=== PATIENT | female | born 1945 | race Caucasian/White ===

== ENCOUNTER 2019-11-25 08:54 | Outpatient (CLI) | payer MEDICARE, MEDICAID, SELFPAY ==
--- NOTE | 2019-11-25 09:04 | XR_ITS ---
WS: [id number] XR KUB [id number] REASON FOR EXAM: retained ureteral stent FINDINGS: Renal calculus is noted in the right kidney with a stent seen from the kidney to the bladde r. There is nonspecific gas and fecal stasis. There is degenerate changes of the left hip joint. A prosthesis total hip replacement on the right side. XR/XR KUB 31191 IMPRESSION: Right renal calculus with a stent in the right kidney to the bladder Degenerated changes of the left hip Total replacement of the right hip.
== END 2019-11-25 08:55 | disposition home or self-care (01) ==
LOC: RAD 09:02
PROVIDERS: Family Provider Family Medicine; PCP Family Medicine; Visit Provider Urology
DX: N20.0 Calculus of kidney (principal); Z96.0 Presence of urogenital implants; Z96.641 Presence of right artificial hip joint; R32 Unspecified urinary incontinence
CPT/HCPCS: 74018; 80053; 81001; 87077; 87086; 87186

== ENCOUNTER 2019-12-27 11:21 | Outpatient (CLI) | payer MEDICARE, MEDICAID, SELFPAY ==
--- NOTE | 2019-12-27 11:44 | XR_ITS ---
WS: [id number] ABDOMEN 1 VIEW(S) HISTORY: RETAINED URETERAL STENT COMPARISON: 11/25/2019 RIGHT ureteral stent remains in good position. 8mm calcification over the mid RIGHT kidney. No calcif ication along the course of the stent. No calcifications LEFT kidney identified. Numerous surgical clips throughout the abdomen and pelvis. RIGHT hip arthroplasty. LEFT hip avascular necrosis. XR/XR KUB 15742 IMPRESSION: 1. RIGHT ureteral stent in good position. No associated calcification. 2. Unchanged position of RIGHT renal calcification.
== END 2019-12-27 11:22 | disposition home or self-care (01) ==
LOC: RADWPI 11:27
PROVIDERS: Family Provider Family Medicine; PCP Family Medicine; Visit Provider Urology
DX: Z96.0 Presence of urogenital implants (principal)
CPT/HCPCS: 74018; 80053; 81001; 87077; 87086; 87186

== ENCOUNTER 2020-01-02 06:31 | Day surgery (SDC) | payer MEDICARE, MEDICAID, SELFPAY ==
[2020-01-01 15:45] VITALS: BMI 24.5
--- NOTE | 2020-01-02 | SCC_ITS ---
Procedure Done: Cystoscopy, exchange right ureteral stent 14.4 seconds of fluoroscopic guidance, for a cumulative dose of 1.81 mGy, was provided to Dr. Mayes by the radiology department. C-arm images of the abdomen were saved for the patient's permanent record. [facility]
--- NOTE | 2020-01-02 06:35 | SC_ITS ---
WS: [id number] INTRAOPERATIVE TECHNIQUE: 2 Spot fluoroscopic images for intraoperative purposes. FLUOROSCOPY TIME: 14.4 seconds CLINICAL INFORMATION: Change to right ureteral stent COMPARISON: None. FINDINGS: Partially visualized right double-J ureteral stent. SC/C-arm FL for Urology IMPRESSION: Images obtained for intraoperative purposes.
[2020-01-02 06:43] VITALS: BP 129/79; PULSE 90; RESP 18; TEMP 36; O2SAT 98
[2020-01-02] MEDS: sodium chloride 0.9% 1,000 ML 30 ML IV (06:55)
--- NOTE | 2020-01-02 07:15 | ANES.PREANE2 ---
Pre-Anesthetic Assessment Pre-Anesthetic Assessment: Height/Weight: Height 1.55 m Weight 58.967 kg Temp Pulse Resp BP Pulse Ox 96.8 F L 90 18 129/79 98 01/02/20 06:43 01/02/20 06:43 01/02/20 06:43 01/02/20 06:43 01/02/20 06:43 Preop Diagnosis: Chronic right ureteral obstruction Proposed Procedure: Operation Date: 01/02/20 08:00 Proposed Procedures p Cystoscopy 09066 Z94.0 N13.5(Not Applicable) - Nnamdi Mayes MD s Ureteral Stent Exchange(Right) - Nnamdi Mayes MD Last intake: Intake Last Liquid Date 01/01/20 Last Liquid Time 23:00 Last Solid Date 01/01/20 Last Solid Time 18:00 Social: Social History: Tobacco (every day) and No alcohol Exam: Pre-Anes Outpt Exam: alert, oriented x 3, clear to auscultation bilaterally and regular rate & rhythm Airway: Submandibular: WNL Cervical ROM: WNL MP: 2 Dentition: False (upper) and Other (lower teeth very poor) History/ROS: No significant history except as noted Pulmonary: Pulmonary: None reported CV/HEM: CV/HEM: HTN and PVD : Comments: indwelling stent. S/P hysterectomy Hepatic: Hepatic: None reported GI: GI: None reported Metabolic: Metabolic: None reported Musc/skel: Musc/skel: OA/DJD Neuropsych: Neuropsych: None reported Anesthetic Plan: ASA status: 3 Anesthesia: Anesthesia Evaluation and General Risk of > 500 ml blood loss (7ml/kg in children): No Meds/Allergies Current Medications: Current Medications Generic Name Dose Route Start Last Admin Trade Name Freq PRN Reason Stop Dose Admin Sodium Chloride 1,000 mls @ 30 ml s/hr 01/02/20 06:45 01/02/20 06:55 Sodium Chloride 0.9% IV 01/03/20 06:44 30 mls/hr .Q24H KORTNEY Administration PFSH Anesthesia PFSH: Medical History Extrinsic ureteral obstruction Retained ureteral stent Urinary incontinence Surgical History H/O arthroscopic knee surgery bilateral H/O oral surgery H/O shoulder surgery H/O total hip arthroplasty right H/O: H/O: hysterectomy History of colon surgery Family History Mother , at age 79 Hypertension Peripheral artery disease Diabetes Father , at age 47 Cancer pancreatic and lung Social History Smoking and tobacco status: current every day smoker Alcohol intake: never Marital status: Legally Current occupational status: retired History of recent travel: No Data Anesthesia Cardiac Studies: No Data to Display
--- NOTE | 2020-01-02 07:55 | W.PM.OPSUD ---
Surgery/Procedure H&P Update DATE OF PROCEDURE: January 02, 2020 DATE H&P PERFORMED: 12/27/19 H&P UPDATE INFORMATION: I have reviewed H&P completed within last 30 days, I have examined patient prior to procedure and No changes to prior documentation PREOP DIAGNOSIS: Chronic right ureteral obstruction PLANNED PROCEDURE: Operation Date: 01/02/20 08:00 Proposed Procedures p Cystoscopy 37275 Z94.0 N13.5(Not Applicable) - Nnamdi Mayes MD s Ureteral Stent Exchange(Right) - Nnamdi Mayes MD
--- NOTE | 2020-01-02 07:59 | P.OP_ITS ---
Operative Report Date of procedure: January 02, 2020 Pre-op Diagnosis: Chronic right ureteral obstruction Post-op diagnosis: same Procedure Done: Cystoscopy, exchange right ureteral stent Pathology: none sent Surgeon: Sugey Anesthesia: MAC Estimated blood loss: Minimal Urine output: Not measured Complications: None Findings: Stent removed without difficulty. Same size replaced, 6 Mongolian by 24 cm double-pigtail without string Condition: stable Disposition: PACU Brief History: Mrs. Gerardo is a very pleasant 74-year-old white female with chronic ureteral obstruction maintained by indwelling ureteral stent. Her last stent change was August 2019. Due for stent change now with anticipation of chronic indwelling stent. Procedure: After routine preoperative evaluation examination and obtaining of in formed consent she was taken to the operating [place]. 4 2320 where general anesthesia was administered without difficulty after appropriate timeout was performed, SCDs confirmed to be functioning, preoperative antibiotics administered, beta-amado protocol confirmed. Prepped and draped in usual sterile fashion in dorsolithotomy position pain careful attention to avoiding pressure points. 21 Mongolian cystoscope with 30 degree lens was introduced into the urethral meatus and advanced into the bladder under videoscopy. The bladder was systematically examined and found to be mildly inflamed from the stent. The stent was in appropriate position. A flexible tip guidewire was attempted to be advanced up the right ureter next to the stent but did not easily go and for that reason the stent was grasped with grasping forceps and withdrawn through the urethral meatus where a guidewire was easily advanced up the stent and the stent was removed without difficulty. The cystoscope was then backloaded over the guidewire. A 6 Mongolian by 24 cm double-pigtail stent without string was easily advanced over the guidewire through the cystoscope into appropriate position as confirmed via fluoroscopy and cystoscopy. Bladder was drained. Tolerated procedure well without complications and was awakened in the operating room and returned to the room in stable condition. PLANS: 1. Follow-up in about 4 months with K[facility]. Make plans at that time for stent change.
[2020-01-02] MEDS: levofloxacin-dextrose 5 % 500 MG/100 ML PREMIX 100 MG IV (08:06)
--- NOTE | 2020-01-02 08:28 | SUR.OPER ---
old stent removed intact and disposed of in biohazard.
[2020-01-02 08:36] VITALS: BP 118/76; PULSE 105; RESP 16; TEMP 36.2; O2SAT 97
--- NOTE | 2020-01-02 08:40 | ANE.PACU2 ---
 Inpatient post-anesthesia follow up: Airway intact: Yes Vital signs: Temperature 96.8 F Pulse Rate 90 Respiratory Rate 18 Blood Pressure 129/79 Pulse Oximetry 98 Oxygen Delivery Me thod Room Air Oxygen Flow Rate Fraction of Inspir ed Oxygen Hydration adequate: Yes Nausea and vomiting: No Pain level: 1 Mental status: Baseline
[2020-01-02 09:25] VITALS: BP 138/65; PULSE 64; RESP 18; O2SAT 98
== END 2020-01-02 09:32 | disposition home or self-care (01) ==
PROVIDERS: Family Provider Family Medicine; PCP Family Medicine; Visit Provider Urology
PROC: 0TJB8ZZ Inspection of Bladder, Via Natural or Artificial Opening Endoscopic (ICD-10-PCS; CPT 52000; principal; 2020-01-02 08:00)
PROC: (CPT 52332; 2020-01-02 08:00)
DX: N20.1 Calculus of ureter (principal); F17.210 Nicotine dependence, cigarettes, uncomplicated; I10 Essential (primary) hypertension; M19.90 Unspecified osteoarthritis, unspecified site; Z82.49 Family history of ischemic heart disease and other diseases of the circulatory system
CPT/HCPCS: 52332; 12345; 76000; J1956; J2001; J2704; J7030

== ENCOUNTER 2020-01-16 10:35 | Outpatient (CLI) | payer MEDICARE, MEDICAID, SELFPAY ==
[2020-01-16 16:36] LABS: Basophils # 0.1 10^3/uL (0.0-0.1); Basophils % 1.1 %; Eosinophils # 0.2 10^3/uL (0.0-0.8); Eosinophils % 2.8 %; Hematocrit 47.1 % (37.0-47.0); Hemoglobin 14.7 g/dL (11.5-15.3); Lymphocytes # 1.8 10^3/uL (0.8-4.8); Lymphocytes % 33.3 %; Mean Corpuscular HGB Conc 31.2 g/dL (30.0-36.0); Mean Corpuscular Hemoglobin 31.9 pg (28.0-34.0); Mean Corpuscular Volume 102.2 fL (81-99); Mean Platelet Volume 10.1 fL (7.4-10.4); Monocytes # 0.4 10^3/uL (0.2-0.9); Monocytes % 7.9 %; Neutrophils # 2.9 10^3/uL (1.8-7.7); Neutrophils % 54.3 %; Nucleated Red Blood Cells % 0 %; Platelet Count 234 10^3/cmm (130-400); Red Blood Count 4.61 10^6/uL (4.1-5.3); Red Cell Distribution Width 12.9 % (12.1-15.1); White Blood Count 5.3 10^3/uL (4.0-10.0)
[2020-01-16 16:43] LABS: Alanine Aminotransferase 10 U/L (0-33); Albumin Level 4.5 g/dL (3.5-5.2); Alkaline Phosphatase 133 IU/L (35-105); Anion Gap 20.5 (5-19); Aspartate Amino Transferase 18 U/L (0-32); Blood Urea Nitrogen 24 mg/dL (8-23); Calcium 10.6 mg/dL (8.5-10.5); Carbon Dioxide 20 mmol/L (22-29); Chloride 103 mmol/L (98-107); Globulin 3.8 g/dL (1.3-4.6); Glucose 65 mg/dL (65-115); Osmolality Calculated 283 mOsm/kg (285-295); Potassium 4.5 mmol/L (3.5-5.1); Sodium 139 mmol/L (136-145); Total Bilirubin 0.4 mg/dL (0.15-1.2); Total Protein 8.3 g/dL (6.6-8.7)
== END 2020-01-16 10:36 | disposition home or self-care (01) ==
LOC: ONCMED 16:16
PROVIDERS: PCP Family Medicine; Visit Provider Nurse Practitioner
DX: C53.0 Malignant neoplasm of endocervix (principal); D50.0 Iron deficiency anemia secondary to blood loss (chronic)
CPT/HCPCS: 36415; 80053; 85025

== ENCOUNTER 2020-01-17 08:56 | Outpatient (CLI) | payer MEDICARE, MEDICAID, SELFPAY ==
--- NOTE | 2020-01-18 17:41 | ONC FU_ITS ---
Dr. Sawant Patient Follow-Up Note Patient: Denia Gerardo Unit #: [id number]: 1945 Dicatated By: Hans Sawant M.D.Date of Visit:January 17, 2020 Onc Med Follow-up/Prog Note Chief Complaint: Cervical cancer. 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 She had been seen by Dr. Day in August 2017 with 4-month history of postmenopausal discharge/bleeding. Pelvic ultrasound showed suboptimal visualization of the uterus and nonvisualization of the ovaries. On 09/26/2017 show underwent hysteroscopy with fractional D&C. Findings included very thickened friable tissue completely surrounding the endometrial cavity and cervical cavity. Specimens from both the endocervix and endometrium showed moderately differentiated squamous cell carcinoma with minimal keratinization. She was referred to Dr. Wolfe. On 11/02/2017 she underwent robotic-assisted class 3 radical hysterectomy, bilateral salpingo-oophorectomy, and pelvic lymphadenectomy. Pathology showed grade 3 nonkeratinizing squamous cell carcinoma measuring 6 x 5 by up to 1.4 cm. Grossly the tumor was noted to be replacing the endocervical canal as well as obliterating the anterior and posterior upper endocervix and lower uterine segment. It was noted to extend 1.2 cm into the wall of the cervix, to within 0.1 cm of the inked pericervical margin. At the anterior and posterior upper endocervix and lower uterine segment the mass was noted to extend at least 1 cm into the wall. There was evidence of endocervical stromal, myometrial, and endometrial invasion. A left parametrial excision showed benign fibroadipose tissue and 2 negative lymph nodes. There was no involvement in 2 right pelvic lymph nodes and in 7 left pelvic lymph nodes. Her postoperative course was complicated by Clostridium difficile colitis, for which she required admission to the hospital on 11/12/2017. She reportedly also had a right lower extremity DVT. At the time of her hospital admission, CT abdomen/pelvis showed a large multilobulated abscess and associated right hydronephrosis. 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 She did require right ureteral stent placement in March 2018 she underwent fistula repair and right ureteral neocystotomy. She has since then had an uneventful recovery. She was initially seen here on 05/15/2018 for possible adjuvant therapy. After further discussion with Dr. Keller, postoperative chemoradiation was recommended utilizing the standard weekly cisplatin regimen. She received her initial cisplatin infusion on 05/30/2018. She tolerated it well, and she was then able to continue with her chemotherapy weekly concurrently with radiation. As of 06/28/2018 she completed her week 5 cisplatin infusion. Her week 6 treatment was held due to fatigue and declining neutrophil count. She completed radiation on 07/09/2018 to a total dose of 5040 cGy. She was then followed on observation/expectant management. Her other medical illnesses include hypertension, hyperlipidemia, peripheral arterial disease, GERD, osteoporosis, and depression. She has a prior history of right lower extremity deep vein thrombosis, and she suffered a TIA in 2008. She has been treated for iron deficiency anemia. She has a history of smoking for more than 50 years, previously up to 2 packs of cigarettes daily. She has cut down to < 1/2 pack per day. INTERIM HISTORY: Her surveillance CT scans on 07/05/2019 showed evidence of severe chronic emphysema and atherosclerotic cardiovascular changes. A right sided ureteral stent was in place with resolution of previously noted right hydronephrosis and ureterectasis. Multiple cortical scars of the right kidney were noted. There was evidence of prior partial colectomy with ileocolic anastomosis. Avascular necrosis of the left femoral head had a similar appearance to the previous study from November 2017. There was evidence of right iliac and femoral arterial graft placement. There was no evidence of neoplastic process in the chest, abdomen, or pelvis. She has continued to follow with Dr. Mayes regarding her ureteral stent, which he replaced the week before last. She is seen for a follow-up visit. She has been feeling pretty good, though she does have significant fatigue. She is able to do light work. ECOG score is 1. Her appetite has been good. Her weight recently has been stable, but she is down about 30 pounds from her previous normal weight. She does not have fever or night sweats. She has some shortness of breath. She does not complain of cough and she has not been having chest pain. She is down to smoking a few cigarettes per day. She has no GI complaints. She does have bladder incontinence, but it tends to occur any intermittent episodes. She has pain in her right knee. She has numbness in her left hand associated with a previous injury. Medications: Acetaminophen 2 Capsule (of 325 mg) Oral PRN, AmLODIPine Besylate 1 Tablet (of 2.5 mg) Oral daily PRN, Lexapro 1 Tablet (of 20 mg) Oral daily Allergies: Demerol and Morphine Sulfate. Review of Systems: Constitutional - Her energy is fair. She sleeps a lot both during the daytime and at night. She is able to do some light housework. Appetite is good. Weight is stable. She has sweating at night. ECOG score is 1, ENMT - She has sinus drainage. No mouth sores. No sore throat or difficulty swallowing, Hematologic/Lymphatic - No abnormal bruising or bleeding, Respiratory - No shortness of breath. No pleuritic pain or hemoptysis. No cough, Cardiovascular - No angina pain. No palpitations, Gastrointestinal - No heartburn or acid reflux. No nausea or vomiting. No diarrhea or constipation. No blood in the stool or black stools, Genitourinary (F) - She has occasional incontinence. No dysuria or hematuria. No urinary frequency, Musculoskeletal - She has pain in her right knee, Integumentary - No skin complications, Neurologic - She has continued numbness in her left wrist and ring finger due to a previous injury. No headache or dizziness, Psychiatric - Her anxiety/depression is adequately managed with medication. She does not sleep well at night. Vital Signs: Performed on January 17, 2020 09:08 Height - 63.00 in Weight - 133.6 lbs (HIGH) BSA - 1.63 sq.m BMI - 23.67 Temperature - 97.2 F (LOW) Pulse - 110 /min (HIGH) Respiration - 24 /min BP - 148/81 mm(hg) (HIGH) O2 Sat - 100 % Pain - 0 Physical Examination: Constitutional - She looks pretty good generally, Eyes - Sclerae nonicteric. Conjunctivae clear, ENMT - No lesions noted in the oral cavity, Hematologic/Lymphatic - No cervical, clavicular, or axillary adenopathy, Respiratory - Lungs are clear with good air movement bilaterally, Cardiovascular - Heart rhythm is regular. She has a mild tachycardia. There is a II/ systolic murmur. There is no gallop or rub noted, Abdomen - Soft. Liver and spleen are not enlarged. There is no abdominal mass or ascites noted and there is no inguinal adenopathy, Extremities - No edema, Neurologic - No focal neurologic deficits noted. Lab/Imaging: CBC shows hemoglobin 14.7 g, White blood cell count 5300, and platelet count 234,000. Comprehensive metabolic profile shows mildly elevated alkaline phosphatase at 133/105 IU/L, similar to previous studies. The other liver enzymes are normal. Renal function is stable with BUN 24 and creatinine 1.1 mg/dL. Impression: 1. 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 2. She underwent robotic-assisted radical hysterectomy, bilateral salpingo-oophorectomy, left parametrial biopsy, and pelvic lymphadenectomy on 11/02/2017. 3. Her postoperative course was complicated by Clostridium difficile colitis and by right lower extremity deep vein thrombosis. 4. 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 5. She underwent fistula repair and right ureteral neocystotomy on 03/13/2018. Her other medical illnesses include: 6. Hypertension. 7. Hyperlipidemia. 8. Peripheral arterial disease. 9. GERD. 10. Osteoporosis. 11. Depression. 12. She has a history of TIA. 13. She has a history of iron deficiency anemia. She was given postoperative chemoradiation utilizing the standard weekly cisplatin chemotherapy regimen. She was able to complete 5 weekly infusions of cisplatin. Her week 6 treatment was held due to fatigue and neutropenia. She completed radiation on 07/09/2018 to a total dose of 5040 cGy. She has since then been followed on observation/expectant management. She has required ongoing follow-up for the ureteral stent. She has had ongoing complaints of fatigue. Her overall clinical status, though, has been stable. Thus far there has been no evidence of recurrence of the cervical cancer. Plan: She will continue on observation/expectant management for the cervical cancer. She will be scheduled for a followup visit with surveillance CT scans in 6 months. Signed By: Hans Sawant M.D. <<Signature on File>>
== END 2020-01-17 08:57 | disposition home or self-care (01) ==
LOC: ONCMED 08:59
PROVIDERS: PCP Family Medicine; Visit Provider Internal Medicine Medical Oncology
DX: Z08 Encounter for follow-up examination after completed treatment for malignant neoplasm (principal); Z85.41 Personal history of malignant neoplasm of cervix uteri; Z90.710 Acquired absence of both cervix and uterus; I10 Essential (primary) hypertension; E78.5 Hyperlipidemia, unspecified; I73.9 Peripheral vascular disease, unspecified; K21.9 Gastro-esophageal reflux disease without esophagitis; M81.0 Age-related osteoporosis without current pathological fracture; F32.9 Major depressive disorder, single episode, unspecified; D50.9 Iron deficiency anemia, unspecified; Z86.73 Personal history of transient ischemic attack (TIA), and cerebral infarction without residual deficits; Z92.3 Personal history of irradiation
CPT/HCPCS: G0463

== ENCOUNTER 2020-05-04 07:36 | Outpatient (CLI) | payer MEDICARE, MEDICAID, SELFPAY ==
--- NOTE | 2020-05-04 07:30 | XRR_ITS ---
PROCEDURE INFORMATION: Exam: XR Abdomen, 1 View Exam date and time: 05/04/2020 7:51 AM Age: 74 years old Clinical indication: Condition or disease; Other: Retained stent; Prior surgery; Surgery type: Bowel rs TECHNIQUE: Imaging protocol: XR of the abdomen. Views: Frontal supine view of the abdomen. 1 View. COMPARISON: CR XR KUB [id number] 12/27/2019 11:48 AM FINDINGS: Tubes, catheters and devices: Surgical clips adjacent to the pigtail catheter as well as in the left mid abdomen. Gastrointestinal tract: Bowel gas pattern is nonspecific. No mass effect upon the bowel loops. Distal rectal gas. Scattered loops of air filled small bowel none of which are dilated. Organs: Apparent calcification of approximately 7 mm overlying the midpole right kidney. Vasculature: Double-J ureteric stent on the right. Bones/joints: Avascular necrosis left femoral head with articular collapse. No acute process within the osseous structures of the spine or pelvis. Soft tissues: No appreciable calcifications XR/XR KUB [id number] IMPRESSION: 1. Bowel gas pattern is nonspecific. 2. Avascular necrosis left femoral head with articular collapse. 3. Apparent calcification of approximately 7 mm overlying the midpole right kidney.
== END 2020-05-04 07:37 | disposition home or self-care (01) ==
LOC: RAD 07:38
PROVIDERS: PCP Family Medicine; Visit Provider Urology
DX: Z96.0 Presence of urogenital implants (principal); I96 Gangrene, not elsewhere classified; N20.0 Calculus of kidney
CPT/HCPCS: 74018; 80053; 81001; 87077; 87086; 87186

== ENCOUNTER 2020-05-11 10:50 | Day surgery (SDC) | payer MEDICARE, MEDICAID, SELFPAY ==
[2020-05-07 11:47] VITALS: BMI 24.7
--- NOTE | 2020-05-07 11:54 | ECG_ITS ---
[facility] Test Date: 2020-05-07 Pat Name: Denia Gerardo Department: Room: Gender: Female Script Girl: : 1945 Requested By: Nusrat Jones Order Number: [id number] Connolly MD: Meera Buckley M.D. Measurements Intervals [place] Rate: 93 P: 65 OH: 160 QRS: 79 QRSD: 76 T: 76 QT: 359 QTc: 447 Interpretive Statements SINUS RHYTHM VOLTAGE CRITERIA FOR LVH [MEETS CRITERIA IN ONE OF: R(aVL), S(V1), R(V5), R(V5/V6)+S(V1)] Compared to ECG 08/29/2019 12:53:00 No significant changes Electronically Signed On 05-08-2020 20:57:06 CDT by Meera Buckley M.D. [id number]
--- NOTE | 2020-05-07 12:22 | ANES.PREANE2 ---
Pre-Anesthetic Assessment Pre-Anesthetic Assessment: Height/Weight: Height 1.55 m Weight 59.421 kg Preop Diagnosis: Chronic right ureteral obstruction Proposed Procedure: Operation Date: 05/11/20 12:20 Proposed Procedures p Cystoscopy 23415 N13.5(Not Applicable) - Nnamdi Mayes MD s Ureteral Stent Placement(Right) - Nnamdi Mayes MD Familial anesthetic complications: None Social: Social History: Tobacco Exam: Pre-Anes Outpt Exam: alert, oriented x 3, clear to auscultation bilaterally and regular rate & rhythm Additional Exam Findings (including area of procedure): coarse breath sounds, diminished b/l Airway: Cervical ROM: WNL MP: 3 Dentition: Partials CV/HEM: CV/HEM: PVD Musc/skel: Musc/skel: OA/DJD (R knee) Neuropsych: Neuropsych: None reported Anesthetic Plan: ASA status: 3 Anesthesia: General Risk of > 500 ml blood loss (7ml/kg in children): No PFSH Anesthesia PFSH: Medical History Extrinsic ureteral obstruction Retained ureteral stent Urinary incontinence Surgical History H/O arthroscopic knee surgery bilateral H/O oral surgery H/O shoulder surgery H/O total hip arthroplasty right H/O: H/O: hysterectomy History of colon surgery Family History Mother , at age 79 Hypertension Peripheral artery disease Diabetes Father , at age 47 Cancer pancreatic and lung Social History Smoking and tobacco status: current every day smoker Alcohol intake: never Marital status: Legally Current occupational status: retired History of recent travel: No Data Anesthesia Cardiac Studies: No Data to Display
[2020-05-11] VITALS (7 sets, daily range): BP systolic 120–140; BP diastolic 61–93; PULSE 86–101; RESP 12–20; TEMP 36.3–36.6; O2SAT 96–99
--- NOTE | 2020-05-11 11:25 | P.ANESUD_ITS ---
Pre-Anesthetic Update Pre-Anesthetic Assessment: Date of Surgery/Procedure: 05/11/20 Preop Eleanor gnosis: Chronic right ureteral stent due for change Proposed Procedure: Operation Date: 05/11/20 12:20 Proposed Procedures p Cystoscopy 59760 N13.5(Not Applicable) - Nnamdi Mayes MD s Ureteral Stent Placement(Right) - Nnamdi Mayes MD Any changes to Pre-Anesthetic Assessment?: No Last Intake: Intake Last Liquid Date 05/11/20 Last Liquid Time 05:00 Last Solid Date 05/10/20 Last Solid Time 17:00 Exam: Pre-Anes Outpt Exam: alert, oriented x 3, clear to auscultation bilaterally and regular rate & rhythm Cardiac Studies: No Data to Display
[2020-05-11] MEDS: sodium chloride 0.9% 1,000 ML 30 ML IV (12:00)
--- NOTE | 2020-05-11 12:09 | P.HPUD_ITS ---
Surgery/Procedure H&P Update DATE OF PROCEDURE: May 11, 2020 DATE H&P PERFORMED: 05/04/20 H&P UPDATE INFORMATION: I have reviewed H&P completed within last 30 days, I have examined patient prior to procedure, No changes to prior documentation and H&P is in [facility] EMR on date indicated PREOP DIAGNOSIS: Chronic right ureteral stent due for change PLANNED PROCEDURE: Operation Date: 05/11/20 12:20 Proposed Procedures p Cystoscopy 15588 N13.5(Not Applicable) - Nnamdi Mayes MD s Ureteral Stent Placement(Right) - Nnamdi Mayes MD
--- NOTE | 2020-05-11 12:10 | PM.OP ---
Operative Report Date of procedure: May 11, 2020 Pre-op Diagnosis: Chronic right ureteral stent; due for change Post-op diagnosis: same Procedure Done: Cystoscopy exchange right ureteral stent Implants: 6 x 24 cm double-pigtail stent Pathology: none sent Surgeon: Sugey Complications: None Findings: Stent changed without difficulty. Good position confirmed via fluoroscopy and cystoscopy Condition: stable Disposition: PACU Brief History: Denia is a very pleasant 74-year-old white female with a history of right ureteral stricture believed to be secondary to both ischemic change and history of pelvic malignancy. Last stent change was in December. She is due now for repeat change Investigation of the ureter showed a very severely scarred ureter and was not felt to be a candidate for local therapy. 6 x 24 has been utilized in the past. Procedure: After routine preoperative evaluation examination and obtaining of informed consent she was taken to the operating suite on 05/11/2020 where general anesthesia was administered without difficulty after appropriate timeout was performed, SCDs confirmed to be functioning, preoperative antibiotics administered, beta-amado protocol confirmed. Prepped and draped in usual sterile fashion in dorsolithotomy position pain careful attention to avoiding pressure points. 21 Zimbabwean cystoscope with 30 degree lens was introduced into the urethra meatus and advanced into the bladder under videoscopy. Grasping forceps were utilized to withdraw the distal aspect of the stent through the urethral meatus where a flexible tip guidewire was passed up the stent and the stent removed. Cystoscope was then backloaded over the guidewire and a 6 x 24 double-pigtail stent was advanced without difficulty into appropriate position as confirmed via fluoroscopy and cystoscopy. Bladder was drained. PLANS: Follow-up in about 4 months with KUB. Schedule stent change at that time
[2020-05-11] MEDS: levofloxacin-dextrose 5 % 500 MG/100 ML PREMIX 100 MG IV (12:11)
--- NOTE | 2020-05-11 12:42 | SUR.PHASEI ---
1239 PATIENT TO PACU FROM OR. RR EVEN AND UNLABORED .SPO2 98% ON RA. PATIENT RESTING ON GURNEY, NO DISTRESS.
--- NOTE | 2020-05-11 12:51 | ANE.PACU2 ---
Inpatient post-anesthesia follow up: Airway intact: Yes Vital signs: Temperature 97.7 F Pulse Rate 95 Respiratory Rate 19 Blood Pressure 135/61 Pulse Oximetry 97 Oxygen Delivery Me thod Room Air Oxygen Flow Rate Fraction of Inspir ed Oxygen Hydration adequate: Yes Nausea and vomiting: No Pain level: 1 Mental status: Baseline
--- NOTE | 2020-05-11 13:03 | SUR.PHASEI ---
1300 PATIENT TO OPS. DENIES PAIN.
== END 2020-05-11 13:30 | disposition home or self-care (01) ==
PROVIDERS: PCP Family Medicine; Visit Provider Urology
PROC: 0TJB8ZZ Inspection of Bladder, Via Natural or Artificial Opening Endoscopic (ICD-10-PCS; CPT 52000; principal; 2020-05-11 12:00)
PROC: (CPT 52332; 2020-05-11 12:00)
DX: Z46.6 Encounter for fitting and adjustment of urinary device (principal); N13.5 Crossing vessel and stricture of ureter without hydronephrosis; I73.9 Peripheral vascular disease, unspecified; M17.11 Unilateral primary osteoarthritis, right knee; F17.210 Nicotine dependence, cigarettes, uncomplicated
CPT/HCPCS: 52332; 12345; 93005; 96365; J1956; J3010; J7030

== ENCOUNTER 2020-07-16 10:21 | Outpatient (CLI) | payer MEDICARE, MEDICAID, SELFPAY ==
--- NOTE | 2020-07-16 10:27 | CT_ITS ---
WS: [id number] CT CHEST, ABDOMEN, AND PELVIS TECHNIQUE: Contrast-enhanced CT of the chest, abdomen, and pelvis with coronal and sagittal reformatt ed images. CLINICAL INFORMATION: CERVICAL CANCER COMPARISON: CT chest abdomen pelvis 10 25,019 DLP: 1060.[address] scans at [facility] use at least one of these dose optimization techniques: automat ed exposure control; mA and/or kV adjustment per patient size (includes targeted exams where dose is matched to clinical indication); or iterative reconstruction. CT CHEST: Advanced centrilobular emphysematous changes aortic calcification. Coronary calcification. No mediast inal or hilar lymphadenopathy. No axillary lymphadenopathy. No acute pulmonary infiltrates. A few margaret cified granulomas. Subsegmental atelectasis in the right lower lobe. Normal thyroid gland. CT ABDOMEN AND PELVIS: Diffuse fatty infiltration liver. Portal vein and splenic vein are patent. Cho lecystectomy. Cholelithiasis. Adrenal glands are normal. Cortical scarring and atrophy right kidney. Right double-J ureteral stent. No hydronephrosis in right kidney. No abdominal or pelvic lymphadenopathy. No inguinal lymphadenopathy. Prior hysterectomy. Prior postop erative changes partial colectomy with ileocolic anastomosis. Postoperative changes right MEAGHAN with be am hardening artifact. Avascular necrosis left femoral head unchanged. Prior right iliac and femoral endograft placement.Mild lumbar curve convex right CT/CT chest abd pel w con* IMPRESSION: 1. No evidence of new or progressed disease in the chest abdomen or pelvis. 2. No adenopathy in the chest abdomen or pelvis. 3. Cholelithiasis. 4. Diffuse fatty infiltration of the liver with hepatomegaly. 5. Cortical scarring right kidney with atrophy. Right double-J ureteral stent. 6. 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 Prior right MEAGHAN. 7. Prior hysterectomy. 8. Prior postoperative changes extensive partial colectomy with ileocolic anas tomosis.
[2020-07-16 11:34] LABS: Basophils % 0.6 %; Eosinophils # 0.3 10^3/uL (0.0-0.8); Eosinophils % 5.2 %; Hematocrit 44.5 % (37.0-47.0); Hemoglobin 14.3 g/dL (11.5-15.3); Lymphocytes # 1.7 10^3/uL (0.8-4.8); Lymphocytes % 26.8 %; Mean Corpuscular HGB Conc 32.1 g/dL (30.0-36.0); Mean Corpuscular Hemoglobin 31.4 pg (28.0-34.0); Mean Corpuscular Volume 97.8 fL (81-99); Mean Platelet Volume 9.1 fL (7.4-10.4); Monocytes # 0.4 10^3/uL (0.2-0.9); Monocytes % 6.6 %; Neutrophils # 3.73 10^3/uL (1.8-7.7); Neutrophils % 60.2 %; Nucleated Red Blood Cells % 0 %; Platelet Count 302 10^3/cmm (130-400); Red Blood Count 4.55 10^6/uL (4.1-5.3); Red Cell Distribution Width 13.4 % (12.1-15.1); White Blood Count 6.2 10^3/uL (4.0-10.0)
[2020-07-16 12:07] LABS: Alanine Aminotransferase 7 U/L (0-33); Albumin Level 4.4 g/dL (3.5-5.2); Alkaline Phosphatase 126 IU/L (35-105); Anion Gap 18.6 (5-19); Aspartate Amino Transferase 12 U/L (0-32); Blood Urea Nitrogen 18 mg/dL (8-23); Carbon Dioxide 23 mmol/L (22-29); Chloride 100 mmol/L (98-107); Globulin 3.7 g/dL (1.3-4.6); Glucose 96 mg/dL (65-115); Osmolality Calculated 286 mOsm/kg (285-295); Potassium 4.6 mmol/L (3.5-5.1); Sodium 137 mmol/L (136-145); Thyroid Stimulating Hormone 2.06 uIU/mL (0.27-4.20); Total Bilirubin 0.4 mg/dL (0.15-1.2); Total Protein 8.1 g/dL (6.6-8.7)
[2020-07-16] MEDS: iohexol 300 mg/mL 50 mL Btl PO (12:30)
[2020-07-16] MEDS: iodixanol 320 mg/mL 100mL Btl IV (12:31)
== END 2020-07-16 10:22 | disposition home or self-care (01) ==
LOC: CT 10:23
PROVIDERS: PCP Family Medicine; Visit Provider Internal Medicine Medical Oncology
DX: C53.0 Malignant neoplasm of endocervix (principal); E03.9 Hypothyroidism, unspecified; K80.20 Calculus of gallbladder without cholecystitis without obstruction; K76.0 Fatty (change of) liver, not elsewhere classified; Z96.0 Presence of urogenital implants; Z90.710 Acquired absence of both cervix and uterus; Z96.641 Presence of right artificial hip joint
CPT/HCPCS: 71260; 74177; 80053; 84443; 85025

== ENCOUNTER 2020-08-03 09:30 | Outpatient (CLI) | payer MEDICARE, MEDICAID, SELFPAY ==
--- NOTE | 2020-08-06 12:03 | ONC FU_ITS ---
Dr. Sawant Patient Follow-Up Note Patient: Denia Gerardo Unit #: [id number]: [id number] Dicatated By: Hans Sawant M.D.Date of Visit:Aug 03, 2020 Onc Med Follow-up/Prog Note Chief Complaint: Cervical cancer. 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 She had been seen by Dr. Day in August 2017 with 4-month history of postmenopausal discharge/bleeding. Pelvic ultrasound showed suboptimal visualization of the uterus and nonvisualization of the ovaries. On 09/26/2017 show underwent hysteroscopy with fractional D&C. Findings included very thickened friable tissue completely surrounding the endometrial cavity and cervical cavity. Specimens from both the endocervix and endometrium showed moderately differentiated squamous cell carcinoma with minimal keratinization. She was referred to Dr. Wolfe. On 11/02/2017 she underwent robotic-assisted class 3 radical hysterectomy, bilateral salpingo-oophorectomy, and pelvic lymphadenectomy. Pathology showed grade 3 nonkeratinizing squamous cell carcinoma measuring 6 x 5 by up to 1.4 cm. Grossly the tumor was noted to be replacing the endocervical canal as well as obliterating the anterior and posterior upper endocervix and lower uterine segment. It was noted to extend 1.2 cm into the wall of the cervix, to within 0.1 cm of the inked pericervical margin. At the anterior and posterior upper endocervix and lower uterine segment the mass was noted to extend at least 1 cm into the wall. There was evidence of endocervical stromal, myometrial, and endometrial invasion. A left parametrial excision showed benign fibroadipose tissue and 2 negative lymph nodes. There was no involvement in 2 right pelvic lymph nodes and in 7 left pelvic lymph nodes. Her postoperative course was complicated by Clostridium difficile colitis, for which she required admission to the hospital on 11/12/2017. She reportedly also had a right lower extremity DVT. At the time of her hospital admission, CT abdomen/pelvis showed a large multilobulated abscess and associated right hydronephrosis. 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 She did require right ureteral stent placement in March 2018 she underwent fistula repair and right ureteral neocystotomy. She was initially seen here on 05/15/2018 for possible adjuvant therapy. After further discussion with Dr. Keller, postoperative chemoradiation was recommended utilizing the standard weekly cisplatin regimen. She received her initial cisplatin infusion on 05/30/2018. She tolerated it well, and she was then able to continue with her chemotherapy weekly concurrently with radiation. As of 06/28/2018 she completed her week 5 cisplatin infusion. Her week 6 treatment was held due to fatigue and declining neutrophil count. She completed radiation on 07/09/2018 to a total dose of 5040 cGy. She was then followed on observation/expectant management. Her other medical illnesses include hypertension, hyperlipidemia, peripheral arterial disease, GERD, osteoporosis, degenerative arthritis, and depression. She has a prior history of right lower extremity deep vein thrombosis, and she suffered a TIA in 2008. She underwent right femoropopliteal bypass in 2011. 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 She underwent right total hip arthroplasty in 2015. She has a history of smoking for more than 50 years, previously up to 2 packs of cigarettes daily. She has cut down to < 1/2 pack per day. INTERIM HISTORY: Her surveillance CT scans on 07/05/2019 showed evidence of severe chronic emphysema and atherosclerotic cardiovascular changes. A right sided ureteral stent was in place with resolution of previously noted right hydronephrosis and ureterectasis. Multiple cortical scars of the right kidney were noted. There was evidence of prior partial colectomy with ileocolic anastomosis. Avascular necrosis of the left femoral head had a similar appearance to the previous study from November 2017. There was evidence of right iliac and femoral arterial graft placement. There was no evidence of neoplastic process in the chest, abdomen, or pelvis. She has continued to follow with Dr. Mayes, as she has had ongoing requirement for the ureteral stent. Surveillance CT scans on 07/16/2020 showed no evidence of new or progressed disease in the chest, abdomen, or pelvis. There was evidence for diffuse fatty infiltration of the liver with hepatomegaly. 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 There were postoperative changes of extensive partial colectomy with ileocolic anastomosis. She is seen for a follow-up visit. She has been feeling pretty good generally, though she does have limited activity. She is able to ambulate with a walker. She has just a little bit of light housework. Her ECOG score is 2. She has good appetite. She has no fever or night sweats. She has occasional cough. She does not complain of shortness of breath or chest pain. She has no GI complaints. She continues to follow with Dr. Mayes for her ureteral stent. It is due to be changed again in September. She has chronic bladder incontinence. She has pain in her left hip and she also has pain in her right knee and leg. She does not complain of headache or dizziness, and she has no focal neurologic symptoms. Medications: Acetaminophen 2 Capsule (of 325 mg) Oral PRN, AmLODIPine Besylate 1 Tablet (of 2.5 mg) Oral daily PRN, Lexapro 1 Tablet (of 20 mg) Oral daily Allergies: Demerol and Morphine Sulfate. Review of Systems: Constitutional - Her energy is pretty good, but she does have limited activity. She is able to get around with a walker. She is able to do just a little bit of light housework. Appetite is good. Her weight is down a couple of pounds. She has no fever, night sweats, or hot flashes. ECOG score is 2, ENMT - She has allergy related sinus symptoms. No mouth sores. No sore throat or difficulty swallowing, Hematologic/Lymphatic - No abnormal bruising or bleeding, Respiratory - No shortness of breath. She has occasional cough. No pleuritic pain or hemoptysis, Cardiovascular - No angina pain. No palpitations, Gastrointestinal - No nausea or vomiting. She has occasional acid reflux, managed with Tums. No diarrhea or constipation. No blood in the stool or black stools, Genitourinary (F) - No dysuria or hematuria. No urinary frequency. She has bladder incontinence, Musculoskeletal - She has pain in her right knee and right leg and she has significant pain in the left hip, Integumentary - No skin rash, Neurologic - No headache or dizziness. No numbness or tingling. No other focal neurologic symptoms, Psychiatric - She has anxiety/depression, adequately managed with Lexapro. No insomnia. Vital Signs: Performed on Aug 03, 2020 09:36 Height - 63.00 in Weight - 130.4 lbs (LOW) BSA - 1.61 sq.m BMI - 23.10 Temperature - 97.0 F (LOW) Pulse - 86 /min Respiration - 24 /min BP - 145/70 mm(hg) (HIGH) O2 Sat - 98 % Pain - 0 Physical Examination: Constitutional - She appears somewhat frail generally, Eyes - Sclerae nonicteric. Conjunctivae clear, ENMT - No lesions noted in the oral cavity, Hematologic/Lymphatic - No cervical, clavicular, or axillary adenopathy, Respiratory - Lungs are clear with good air movement bilaterally, Cardiovascular - Heart rhythm is regular. There is a II/ systolic murmur. There is no gallop or rub noted, Abdomen - Soft. Liver and spleen are not enlarged. There is no abdominal mass or ascites noted and there is no inguinal adenopathy, Extremities - No edema, Neurologic - No focal neurologic deficits noted. Lab/Imaging: Test performed on Jul 16, 2020 11:10 Sodium 137 mmol/L TSH 2.06 uIU/mL Potassium 4.6 mmol/L Chloride 100 mmol/L CO2 23 mmol/L Anion Gap 18.6 BUN 18 mg/dL Creatinine 1.1 mg/dL Cr Clearance (Est) 43.5800 mL/min Glucose 96 mg/dL Osmolality - Calculated 286 mOsm/kg Calcium 10.0 mg/dL Protein, Total 8.1 g/dL Albumin 4.4 g/dL Globulin 3.7 g/dL Bilirubin, Total 0.4 mg/dL ALT (SGPT) 7 U/L AST (SGOT) 12 U/L Alkaline Phosphatase 126 IU/L WBC 6.2 10 3/uL RBC 4.55 10 6/uL HGB 14.3 g/dL HCT 44.5 % MCV 97.8 fL MCH 31.4 pg MCHC 32.1 g/dL RDW 13.4 % Platelet Count 302 10 3/cmm MPV 9.1 fL Neutrophils 3.73 10 3/uL Lymphocytes 1.7 10 3/uL Monocytes 0.4 10 3/uL Eosinophils 0.3 10 3/uL Basophils 0.0 10 3/uL Neutrophil % 60.2 % Lymphocyte % 26.8 % Monocyte % 6.6 % Eosinophil % 5.2 % Basophils % 0.6 % NRBC % 0 % Impression: 1. 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 2. She underwent robotic-assisted radical hysterectomy, bilateral salpingo-oophorectomy, left parametrial biopsy, and pelvic lymphadenectomy on 11/02/2017. 3. Her postoperative course was complicated by Clostridium difficile colitis and by right lower extremity deep vein thrombosis. 4. 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 5. She underwent fistula repair and right ureteral neocystotomy on 03/13/2018. Her other medical illnesses include: 6. Hypertension. 7. Hyperlipidemia. 8. Peripheral arterial disease with previous right fempop bypass. 9. GERD. 10. Osteoporosis. 11. Degenerative arthritis and aseptic necrosis of the femoral head bilaterally. She has had previous right total hip arthroplasty. 12. Depression. 13. She has a history of TIA. 14. She has a history of iron deficiency anemia. She was given postoperative chemoradiation utilizing the standard weekly cisplatin chemotherapy regimen. She was able to complete 5 weekly infusions of cisplatin. Her week 6 treatment was held due to fatigue and neutropenia. She completed radiation on 07/09/2018 to a total dose of 5040 cGy. She has since then been followed on observation/expectant management. She has required ongoing follow-up for the ureteral stent. She has had ongoing complaints of fatigue. Her overall clinical status, though, has been stable. Thus far there has been no evidence of recurrence of the cervical cancer. Plan: She continues on observation/expectant management for the cervical cancer. She will be scheduled for a followup visit in 6 months. Signed By: Hans Sawant M.D. <<Signature on File>>
== END 2020-08-03 09:31 | disposition home or self-care (01) ==
LOC: ONCMED 09:30
PROVIDERS: PCP Family Medicine; Visit Provider Internal Medicine Medical Oncology
DX: Z08 Encounter for follow-up examination after completed treatment for malignant neoplasm (principal); Z85.41 Personal history of malignant neoplasm of cervix uteri; I10 Essential (primary) hypertension; E78.5 Hyperlipidemia, unspecified; I73.9 Peripheral vascular disease, unspecified; Z95.828 Presence of other vascular implants and grafts; K21.9 Gastro-esophageal reflux disease without esophagitis; M81.0 Age-related osteoporosis without current pathological fracture; M19.90 Unspecified osteoarthritis, unspecified site; M90.552 Osteonecrosis in diseases classified elsewhere, left thigh; M90.551 Osteonecrosis in diseases classified elsewhere, right thigh; F32.9 Major depressive disorder, single episode, unspecified; D50.9 Iron deficiency anemia, unspecified; Z86.73 Personal history of transient ischemic attack (TIA), and cerebral infarction without residual deficits; Z92.21 Personal history of antineoplastic chemotherapy; Z92.3 Personal history of irradiation
CPT/HCPCS: G0463

== ENCOUNTER 2020-09-08 09:25 | Outpatient (CLI) | payer MEDICARE, MEDICAID, SELFPAY ==
--- NOTE | 2020-09-08 09:30 | XR_ITS ---
WS: [id number] Exam: XR KUB [id number] Date/Time of Exam: 09/08/2020 9:35 AM Reason For Exam: URETERAL OBSTRUCTION Comparison 05/04/2020. A right ureteral stent is in place and appears to be in satisfactory position. Calcifications superim pose both renal silhouettes and may represent renal calculi. Surgical clips in the right and left abd omen. Visualized organ margins are intact. No acute abdominal process. Marked osteopenia of the bony structures of the pelvis and lumbar spine. Findings suspicious for avascular necrosis of left femoral head which has been described previously. Total right hip joint replacement. XR/XR KUB [id number] IMPRESSION: 1. Small calcification superimpose the right and left renal silhouettes and may represent renal calculi. 2. A right-sided ureteral stent in place appearing to be in good position uncha nged. 3. Additional stable appearing findings as detailed above.
== END 2020-09-08 09:26 | disposition home or self-care (01) ==
LOC: RAD 09:30
PROVIDERS: PCP Family Medicine; Visit Provider Urology
DX: N13.5 Crossing vessel and stricture of ureter without hydronephrosis (principal); N20.0 Calculus of kidney; Z96.0 Presence of urogenital implants
CPT/HCPCS: 74018; 81003; 87077; 87086; 87184

== ENCOUNTER → 2020-09-21 14:11 | Outpatient (BNVA) | payer MEDICARE, MEDICAID, SELFPAY | PROVIDERS: PCP Family Medicine; Visit Provider Urology | DX: Z20.828 Contact with and (suspected) exposure to other viral communicable diseases (principal); N13.5 Crossing vessel and stricture of ureter without hydronephrosis | CPT/HCPCS: 87635 ==

== ENCOUNTER 2020-09-24 11:56 | Day surgery (SDC) | payer MEDICARE, MEDICAID, SELFPAY ==
[2020-09-23 10:21] VITALS: BMI 23.0
--- NOTE | 2020-09-23 12:11 | ANES.PREANE2 ---
Pre-Anesthetic Assessment Pre-Anesthetic Assessment: Height/Weight: Height 1.57 m Weight 57.153 kg Preop Diagnosis: Chronic right ureteral obstruction due for stent change Proposed Procedure: Operation Date: 09/24/20 13:30 Proposed Procedures p Cystoscopy 99959 n13.5(Not Applicable) - Nnamdi Mayes MD s right Ureteral Stent Exchange(Right) - Nnamdi Mayes MD Was Beta Chelsie taken within 24 hours: N/A Social: Social History: Tobacco and No alcohol Exam: Pre-Anes Outpt Exam: alert, oriented x 3 and regular rate & rhythm Airway: Submandibular: WNL Cervical ROM: WNL MP: 2 Pulmonary: Pulmonary: COPD CV/HEM: CV/HEM: HTN Hepatic: Hepatic: None reported GI: GI: None reported Metabolic: Metabolic: None reported Musc/skel: Musc/skel: None reported Neuropsych: Neuropsych: Anxiety Anesthetic Plan: ASA status: 3 Anesthesia: General Risk of > 500 ml blood loss (7ml/kg in children): No PFSH Anesthesia PFSH: Medical History Extrinsic ureteral obstruction Retained ureteral stent Urinary incontinence Surgical History H/O arthroscopic knee surgery bilateral H/O oral surgery H/O shoulder surgery H/O total hip arthroplasty right H/O: H/O: hysterectomy History of colon surgery Family History Mother , at age 79 Hypertension Peripheral artery disease Diabetes Father , at age 47 Cancer pancreatic and lung Social History Smoking and tobacco status: current every day smoker Alcohol intake: never Marital status: Legally Current occupational status: retired History of recent travel: No Data Anesthesia Cardiac Studies: No Data to Display
--- NOTE | 2020-09-24 | SCC_ITS ---
Procedure Done: 1. Cystoscopy with right ureteral stent exchange. 9.6 seconds of fluoroscopic guidance, for a cumulative dose of 1.47 mGy, was provided to Dr. Mayes by the radiology department. C-arm images of the abdomen were saved for the patient's permanent record. MTDD
--- NOTE | 2020-09-24 11:58 | SC_ITS ---
WS: [id number] C-arm fluoroscopy of the right upper quadrant for ureteral stent placement, 09/24/2020 Clinical Data: Right ureteral stent change Comparison: KUB, 09/08/2020. Findings: Right ureteral stent appears to be curled in the right renal fossa. SC/C-arm FL for Urology Impression: Change right ureteral stent.
[2020-09-24 12:06] VITALS: BP 126/79; PULSE 81; RESP 18; TEMP 36.1; O2SAT 96
[2020-09-24] MEDS: sodium chloride 0.9% 1,000 ML 30 ML IV (12:25)
--- NOTE | 2020-09-24 12:27 | P.HPUD_ITS ---
Surgery/Procedure H&P Update DATE OF PROCEDURE: September 24, 2020 DATE H&P PERFORMED: 09/08/20 H&P UPDATE INFORMATION: I have reviewed H&P completed within last 30 days, I have examined patient prior to procedure, No changes to prior documentation and H&P is in [facility] [place] [place] EMR on date indicated PREOP DIAGNOSIS: Chronic right ureteral obstruction due for stent change PLANNED PROCEDURE: Operation Date: 09/24/20 13:30 Proposed Procedures p Cystoscopy 49105 n13.5(Not Applicable) - Nnamdi Mayes MD s right Ureteral Stent Exchange(Right) - Nnamdi Mayes MD
--- NOTE | 2020-09-24 13:05 | P.ANESUD_ITS ---
Pre-Anesthetic Update Pre-Anesthetic Assessment: Date of Surgery/Procedure: 09/24/20 Preop Eleanor gnosis: Chronic right ureteral obstruction due for stent change Proposed Procedure: Operation Date: 09/24/20 13:30 Proposed Procedures p Cystoscopy 25149 n13.5(Not Applicable) - Nnamdi Mayes MD s right Ureteral Stent Exchange(Right) - Nnamdi Mayes MD Any changes to Pre-Anesthetic Assessment?: No Last Intake: Intake Last Liquid Date 09/24/20 Last Liquid Time 08:00 Last Solid Date 09/23/20 Last Solid Time 17:00 Vitals: Temperature 97.0 F L 09/24/20 12:06 Temperature Source Oral 09/24/20 12:06 Pulse Rate 81 09/24/20 12:06 Respiratory Rate 18 09/24/20 12:06 Blood Pressure 126/79 09/24/20 12:06 Blood Pressure Brenda n 94 09/24/20 12:06 Pulse Oximetry 96 09/24/20 12:06 Oxygen Delivery Me thod 09/24/20 12:06 Exam: Pre-Anes Outpt Exam: alert, oriented x 3, clear to auscultation bilaterally and regular rate & rhythm Cardiac Studies: No Data to Display
--- NOTE | 2020-09-24 14:46 | PM.OP ---
Operative Report Date of procedure: September 24, 2020 Pre-op Diagnosis: Chronic right ureteral obstruction, due for stent change Post-op diagnosis: same Procedure Done: 1. Cystoscopy with right ureteral stent exchange. Implants: 7 Bolivian by 24 cm double-pigtail stent without string Specimens removed/disposition: Right ureteral stent Surgeon: Sugey Anesthesia: MAC Estimated blood loss: None Urine output: Not measured Complications: None Findings: The stent was not heavily encrusted. Easily advanced a wire through the stent and exchanged without difficulty. Condition: stable Disposition: PACU Brief History: Mrs. Gerardo is a very pleasant 74-year-old white female with a history of right ureteral obstruction due to previous INGREDIENT MIXER malignancy. Has elected management via indwelling ureteral stent. Due for change. We discussed alternatives including transureteroureterostomy. Procedure: After routine preoperative evaluation examination and obtaining of informed consent she was taken to the operating suite on 09/24/2020 where general anesthesia was administered without difficulty after appropriate timeout was performed, SCDs confirmed to be functioning, preoperative antibiotics administered, beta-amado protocol confirmed. Prepped and draped in the usual sterile fashion in dorsolithotomy position paying careful attention to avoiding pressure points. 21 Bolivian cystoscope with 30 degree lens was introduced into the urethral meatus and advanced into the bladder under videoscopy. The bladder was systematically examined. Had some mild inflammatory changes but nothing else of any concern. The stent was in the expected position with no significant encrustation. Grasping forceps were utilized to secure the distal end of the stent which was brought through the urethral meatus. A flexible tip guidewire was then advanced through the stent up into the kidney without difficulty. The cystoscope was then backloaded over the guidewire and a 7 Bolivian by 24 cm double-pigtail stent was advanced over the guidewire through the cystoscope into appropriate position as confirmed via fluoroscopy and cystoscopy. No string. Bladder was drained and the procedure was completed. She tolerated the procedure well without complications and was awakened in the operating room and returned to the recovery room in stable condition. PLANS: 1. Anticipate discharge from outpatient surgery 2. Follow-up in 4 months with KUB.
[2020-09-24 14:47] VITALS: BP 145/65; PULSE 89; RESP 18; TEMP 36.9; O2SAT 95
[2020-09-24 15:14] VITALS: BP 143/64; PULSE 66; RESP 18; TEMP 36.9; O2SAT 98
--- NOTE | 2020-09-24 15:41 | ANE.PACU2 ---
Inpatient post-anesthesia follow up: Airway intact: Yes Vital signs: Temperature 98.5 F Pulse Rate 66 Respiratory Rate 18 Blood Pressure 143/64 Pulse Oximetry 98 Oxygen Delivery Me thod Room Air Oxygen Flow Rate Fraction of Inspir ed Oxygen Hydration adequate: Yes Nausea and vomiting: No Pain level: 1 Mental status: Baseline
== END 2020-09-24 15:35 | disposition home or self-care (01) ==
PROVIDERS: PCP Family Medicine; Visit Provider Urology
PROC: 0TJB8ZZ Inspection of Bladder, Via Natural or Artificial Opening Endoscopic (ICD-10-PCS; CPT 52000; principal; 2020-09-24 13:30)
PROC: (CPT 52332; 2020-09-24 13:30)
DX: N20.1 Calculus of ureter (principal); J44.9 Chronic obstructive pulmonary disease, unspecified; I10 Essential (primary) hypertension; F41.9 Anxiety disorder, unspecified; F17.210 Nicotine dependence, cigarettes, uncomplicated
CPT/HCPCS: 52332; 12345; 76000; C2625; J0690; J2405; J2704; J3010; J7030

== ENCOUNTER 2021-01-18 09:48 | Outpatient (CLI) | payer MEDICARE, MEDICAID, SELFPAY ==
--- NOTE | 2021-01-18 10:00 | XRR_ITS ---
PROCEDURE INFORMATION: Exam: XR Abdomen Exam date and time: 01/18/2021 9:58 AM Age: 75 years old Clinical indication: Condition or disease; Kidney or ureter condition; Calculus (stone) in kidney; Prior surgery; Surgery type: Hysto, c sect, stent; Additional info: Stones TECHNIQUE: Imaging protocol: XR of the abdomen. Views: Frontal supine view of the abdomen. 1 View. COMPARISON: CR XR KUB [id number] 09/08/2020 9:38 AM FINDINGS: Tubes, catheters and devices: A double-J ureteral stent is in place on the right side in good position. Gastrointestinal tract: Normal. No bowel dilation. Intraperitoneal space: Metallic surgical clips are present in the epigastric region and right upper quadrant Organs: A radiodense urinary tract stone is seen in the lower pole collecting system of the right kidney measuring 6 mm this finding was present on prior examination and appears similar. Bones/joints: Metallic arthroplasty is present in the right hip in good position. There is severe osteoarthritis in the left hip with symmetrical joint space narrowing and sclerotic densities in the left femoral head. There is generalized osteopenia present in the pelvis and lumbar spine. XR/XR KUB [id number] IMPRESSION: 1. Double-J ureteral stent is in place on the right side are in good position. 2. Caliceal stone lower pole collecting system right kidney stable since prior 3. Metallic arthroplasty right hip good position 4. Unremarkable for acute GI abnormalities 5. Severe osteoarthritis left hip 6. Metallic surgical clips epigastric region and right upper quadrant .
== END 2021-01-18 09:49 | disposition home or self-care (01) ==
LOC: RAD 09:56
PROVIDERS: PCP Family Medicine; Visit Provider Urology
DX: Z96.0 Presence of urogenital implants; N20.0 Calculus of kidney; Z96.641 Presence of right artificial hip joint; M16.12 Unilateral primary osteoarthritis, left hip
CPT/HCPCS: 74018; 81003; 87077; 87086; 87184

== ENCOUNTER → 2021-01-29 14:18 | Outpatient (BNVA) | payer MEDICARE, MEDICAID, SELFPAY | PROVIDERS: PCP Family Medicine; Visit Provider Urology | DX: Z01.812 Encounter for preprocedural laboratory examination (principal); Z20.822 Contact with and (suspected) exposure to COVID-19 | CPT/HCPCS: 87635 ==

== ENCOUNTER 2021-02-01 07:37 | Outpatient (CLI) | payer MEDICARE, MEDICAID, SELFPAY ==
[2021-02-01 08:11] LABS: Basophils # 0.1 10^3/uL (0.0-0.1); Basophils % 1.1 %; Eosinophils # 0.2 10^3/uL (0.0-0.8); Hematocrit 45.1 % (37.0-47.0); Hemoglobin 14.4 g/dL (11.5-15.3); Lymphocytes # 1.7 10^3/uL (0.8-4.8); Lymphocytes % 31.7 %; Mean Corpuscular HGB Conc 31.9 g/dL (30.0-36.0); Mean Corpuscular Hemoglobin 31.2 pg (28.0-34.0); Mean Corpuscular Volume 97.8 fL (81-99); Mean Platelet Volume 9.5 fL (7.4-10.4); Monocytes # 0.4 10^3/uL (0.2-0.9); Monocytes % 7.3 %; Nucleated Red Blood Cells % 0 %; Platelet Count 250 10^3/cmm (130-400); Red Blood Count 4.61 10^6/uL (4.1-5.3); White Blood Count 5.4 10^3/uL (4.0-10.0)
[2021-02-01 08:36] LABS: Alanine Aminotransferase 12 U/L (0-33); Albumin Level 4.5 g/dL (3.5-5.2); Alkaline Phosphatase 119 IU/L (35-105); Anion Gap 17.5 (5-19); Aspartate Amino Transferase 16 U/L (0-32); Blood Urea Nitrogen 25 mg/dL (8-23); Calcium 9.5 mg/dL (8.5-10.5); Carbon Dioxide 21 mmol/L (22-29); Chloride 107 mmol/L (98-107); Glucose 89 mg/dL (65-115); Osmolality Calculated 296 mOsm/kg (285-295); Potassium 4.5 mmol/L (3.5-5.1); Sodium 141 mmol/L (136-145); Total Bilirubin 0.3 mg/dL (0.15-1.2); Total Protein 7.5 g/dL (6.6-8.7)
--- NOTE | 2021-02-02 06:40 | ONC FU_ITS ---
Dr. Sawant Patient Follow-Up Note Patient: Denia Gerardo Unit #: [id number]: 1945 Dicatated By: Hans Sawant M.D.Date of Visit:February 01, 2021 Onc Med Follow-up/Prog Note Chief Complaint: Cervical cancer. 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 She had been seen by Dr. Day in August 2017 with 4-month history of postmenopausal discharge/bleeding. Pelvic ultrasound showed suboptimal visualization of the uterus and nonvisualization of the ovaries. On 09/26/2017 show underwent hysteroscopy with fractional D&C. Findings included very thickened friable tissue completely surrounding the endometrial cavity and cervical cavity. Specimens from both the endocervix and endometrium showed moderately differentiated squamous cell carcinoma with minimal keratinization. She was referred to Dr. Wolfe. On 11/02/2017 she underwent robotic-assisted class 3 radical hysterectomy, bilateral salpingo-oophorectomy, and pelvic lymphadenectomy. Pathology showed grade 3 nonkeratinizing squamous cell carcinoma measuring 6 x 5 by up to 1.4 cm. Grossly the tumor was noted to be replacing the endocervical canal as well as obliterating the anterior and posterior upper endocervix and lower uterine segment. It was noted to extend 1.2 cm into the wall of the cervix, to within 0.1 cm of the inked pericervical margin. At the anterior and posterior upper endocervix and lower uterine segment the mass was noted to extend at least 1 cm into the wall. There was evidence of endocervical stromal, myometrial, and endometrial invasion. A left parametrial excision showed benign fibroadipose tissue and 2 negative lymph nodes. There was no involvement in 2 right pelvic lymph nodes and in 7 left pelvic lymph nodes. Her postoperative course was complicated by Clostridium difficile colitis, for which she required admission to the hospital on 11/12/2017. She reportedly also had a right lower extremity DVT. At the time of her hospital admission, CT abdomen/pelvis showed a large multilobulated abscess and associated right hydronephrosis. 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 She did require right ureteral stent placement in March 2018 she underwent fistula repair and right ureteral neocystotomy. She was initially seen here on 05/15/2018 for possible adjuvant therapy. After further discussion with Dr. Keller, postoperative chemoradiation was recommended utilizing the standard weekly cisplatin regimen. She received her initial cisplatin infusion on 05/30/2018. She tolerated it well, and she was then able to continue with her chemotherapy weekly concurrently with radiation. As of 06/28/2018 she completed her week 5 cisplatin infusion. Her week 6 treatment was held due to fatigue and declining neutrophil count. She completed radiation on 07/09/2018 to a total dose of 5040 cGy. She was then followed on observation/expectant management. Her other medical illnesses include hypertension, hyperlipidemia, peripheral arterial disease, GERD, osteoporosis, degenerative arthritis, and depression. She has a prior history of right lower extremity deep vein thrombosis, and she suffered a TIA in 2008. She underwent right femoropopliteal bypass in 2011. 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 She underwent right total hip arthroplasty in 2015. She has a history of smoking for more than 50 years, previously up to 2 packs of cigarettes daily. She has cut down to < 1/2 pack per day. INTERIM HISTORY: Her surveillance CT scans on 07/05/2019 showed evidence of severe chronic emphysema and atherosclerotic cardiovascular changes. A right sided ureteral stent was in place with resolution of previously noted right hydronephrosis and ureterectasis. Multiple cortical scars of the right kidney were noted. There was evidence of prior partial colectomy with ileocolic anastomosis. Avascular necrosis of the left femoral head had a similar appearance to the previous study from November 2017. There was evidence of right iliac and femoral arterial graft placement. There was no evidence of neoplastic process in the chest, abdomen, or pelvis. She continued to follow with Dr. Mayes, as she had ongoing requirement for the ureteral stent. Surveillance CT scans on 07/16/2020 showed no evidence of new or progressed disease in the chest, abdomen, or pelvis. There was evidence for diffuse fatty infiltration of the liver with hepatomegaly. 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 There were postoperative changes of extensive partial colectomy with ileocolic anastomosis. She is seen for a follow-up visit. She has been feeling pretty good generally. She is scheduled to have her ureteral stent replaced again later this week. Her main complaint is that this been increasingly difficult for her to walk due to her left hip pain. She also feels tired, though. She is still able to do some light work at home. Her ECOG score is 1. She has good appetite. She does not have fever or night sweats. She has been having some sinus drainage, for which she has been taking Claritin. She has no shortness of breath, cough, or chest pain. She has no GI complaints. She has ongoing problems with bladder incontinence. She has significant pain in her left hip, and she walks with a limp. She has no other joint or bone pain. She does not complain of headache or dizziness. She has some numbness in the ulnar distribution of the left hand associated with the previous injury. Medications: Acetaminophen 2 Capsule (of 325 mg) Oral PRN, AmLODIPine Besylate 1 Tablet (of 2.5 mg) Oral daily PRN, Lexapro 1 Tablet (of 20 mg) Oral daily Allergies: Demerol and Morphine Sulfate. Vital Signs: Performed on February 01, 2021 10:16 Height - 63.00 in Weight - 138.4 lbs (HIGH) BSA - 1.65 sq.m BMI - 24.52 Temperature - 97.4 F (LOW) Pulse - 118 /min (HIGH) Respiration - 18 /min BP - 139/75 mm(hg) O2 Sat - 99 % Pain - 3 Fatigue - 0 Physical Examination: Constitutional - She looks pretty good generally, Eyes - Sclerae nonicteric. Conjunctivae clear, ENMT - No lesions noted in the oral cavity, Hematologic/Lymphatic - No cervical, clavicular, or axillary adenopathy, Respiratory - Lungs are clear with good air movement bilaterally, Cardiovascular - Heart rhythm is regular. There is a mild tachycardia. There is no murmur, gallop, or rub noted, Abdomen - Soft. Liver and spleen are not enlarged. There is no abdominal mass or ascites noted and there is no inguinal adenopathy, Extremities - No edema, Neurologic - No focal neurologic deficits noted. Lab/Imaging: Test performed on February 01, 2021 07:46 Sodium 141 mmol/L Potassium 4.5 mmol/L Chloride 107 mmol/L CO2 21 mmol/L Anion Gap 17.5 BUN 25 mg/dL Creatinine 1.3 mg/dL Cr Clearance (Est) 37.63 mL/min Glucose 89 mg/dL Osmolality - Calculated 296 mOsm/kg Calcium 9.5 mg/dL Protein, Total 7.5 g/dL Albumin 4.5 g/dL Globulin 3.0 g/dL Bilirubin, Total 0.3 mg/dL ALT (SGPT) 12 U/L AST (SGOT) 16 U/L Alkaline Phosphatase 119 IU/L WBC 5.4 10 3/uL RBC 4.61 10 6/uL HGB 14.4 g/dL HCT 45.1 % MCV 97.8 fL MCH 31.2 pg MCHC 31.9 g/dL RDW 13.0 % Platelet Count 250 10 3/cmm MPV 9.5 fL Neutrophils 3.00 10 3/uL Lymphocytes 1.7 10 3/uL Monocytes 0.4 10 3/uL Eosinophils 0.2 10 3/uL Basophils 0.1 10 3/uL Neutrophil % 56.0 % Lymphocyte % 31.7 % Monocyte % 7.3 % Eosinophil % 3.0 % Basophils % 1.1 % NRBC % 0 % Problem List: 1. Grade 3 nonkeratinizing squamous cell carcinoma of the endocervix, stage IIA2. She underwent robotic-assisted radical hysterectomy, bilateral salpingo-oophorectomy, left parametrial biopsy, and pelvic lymphadenectomy on 11/02/2017. 2. Her postoperative course was complicated by Clostridium difficile colitis and by right lower extremity deep vein thrombosis. 3. 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 She underwent fistula repair and right ureteral neocystotomy on 03/13/2018. 4. Hypertension. 5. Hyperlipidemia. 6. Peripheral arterial disease with previous right fempop bypass. 7. GERD. 8. Osteoporosis. 9. Degenerative arthritis and aseptic necrosis of the femoral head bilaterally. She has had previous right total hip arthroplasty. 10. Depression. 11. She has a history of TIA. 12. She has a history of iron deficiency anemia. 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 She underwent robotic-assisted radical hysterectomy, bilateral salpingo-oophorectomy, left parametrial biopsy, and pelvic lymphadenectomy on 11/02/2017. Her postoperative course was complicated by Clostridium difficile colitis and by right lower extremity deep vein thrombosis. 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 She underwent fistula repair and right ureteral neocystotomy on 03/13/2018. She was given postoperative chemoradiation utilizing the standard weekly cisplatin chemotherapy regimen. She was able to complete 5 weekly infusions of cisplatin. Her week 6 treatment was held due to fatigue and neutropenia. She completed radiation on 07/09/2018 to a total dose of 5040 cGy. She was then followed expectantly. During follow-up she has had an ongoing requirement for the ureteral stent, managed by Dr. Mayes. She has limited activity tolerance, mainly due to to the left femoral neck avascular necrosis, for which she is planning to see Dr. Lopez for total hip arthroplasty. Her overall clinical status at this point appears stable, thus far with no evidence of recurrence of the cervical cancer. She will be scheduled for a follow-up visit with surveillance CT scans in 6 months. Signed By: Hans Sawant M.D. <<Signature on File>>
== END 2021-02-01 07:38 | disposition home or self-care (01) ==
LOC: ONCMED 07:39
PROVIDERS: PCP Family Medicine; Visit Provider Internal Medicine Medical Oncology
DX: C53.0 Malignant neoplasm of endocervix (principal); B96.7 Clostridium perfringens [C. perfringens] as the cause of diseases classified elsewhere; N13.30 Unspecified hydronephrosis; I10 Essential (primary) hypertension; E78.5 Hyperlipidemia, unspecified; I73.9 Peripheral vascular disease, unspecified; K21.9 Gastro-esophageal reflux disease without esophagitis; M81.0 Age-related osteoporosis without current pathological fracture; M87.9 Osteonecrosis, unspecified; F32.9 Major depressive disorder, single episode, unspecified; D50.9 Iron deficiency anemia, unspecified; Z86.73 Personal history of transient ischemic attack (TIA), and cerebral infarction without residual deficits; Z79.899 Other long term (current) drug therapy
CPT/HCPCS: 80053; 85025; G0463

== ENCOUNTER 2021-02-04 10:15 | Day surgery (SDC) | payer MEDICARE, MEDICAID, SELFPAY ==
[2021-02-03 13:39] VITALS: BMI 25.0
--- NOTE | 2021-02-04 | SCC_ITS ---
Procedure Done: Cystoscopy, exchange right ureteral stent 13.3 seconds of fluoroscopic guidance, for a cumulative dose of 1.88 mGy, was provided to Dr. Mayes by the radiology department. C-arm images of the abdomen were saved for the patient's permanent record. [facility]
--- NOTE | 2021-02-04 10:17 | SC_ITS ---
WS: [id number] Exam: C-arm FL for Urology Date/Time of Exam: 02/04/2021 10:17 AM Reason For Exam: Chronic right ureteral obstruction, stent exchange A single anterior posterior C-arm image of the right abdomen is submitted for evaluation. The imaged appendix a right-sided ureteral stent in place a guidewire in the stent. The distal tip of the stent appears to be in the region of the right kidney and renal collecting system. No other sign ificant finding on this limited image.
[2021-02-04 10:37] VITALS: BP 167/80; PULSE 114; RESP 18; TEMP 36.4; O2SAT 100
[2021-02-04] MEDS: sodium chloride 0.9% 1,000 ML 30 ML IV (10:48)
--- NOTE | 2021-02-04 11:30 | W.PM.OPSUD ---
Surgery/Procedure H&P Update DATE OF PROCEDURE: February 04, 2021 DATE H&P PERFORMED: 01/18/21 H&P UPDATE INFORMATION: I have reviewed H&P completed within last 30 days, I have examined patient prior to procedure, No changes to prior documentation and H&P is in [facility] on date indicated CHANGES TO PREVIOUS DOCUMENTATION: Ready 11:25 PREOP DIAGNOSIS: Chronic right ureteral obstruction PLANNED PROCEDURE: Operation Date: 02/04/21 11:30 Proposed Procedures p Cystoscopy 82406 N13.5 Z96.0(Not Applicable) - Nnamdi Mayes MD s right Ureteral Stent Exchange(Right) - Nnamdi Mayes MD
[2021-02-04] MEDS: levofloxacin-dextrose 5 % 500 MG/100 ML PREMIX 100 MG IV (11:34)
--- NOTE | 2021-02-04 11:37 | ANES.PREANE2 ---
Pre-Anesthetic Assessment Pre-Anesthetic Assessment: Height/Weight: Height 1.57 m Weight 62.142 kg Temp Pulse Resp BP Pulse Ox 97.6 F 114 H 18 167/80 100 02/04/21 10:37 02/04/21 10:37 02/04/21 10:37 02/04/21 10:37 02/04/21 10:37 Preop Diagnosis: Chronic right ureteral obstruction Proposed Procedure: Operation Date: 02/04/21 11:30 Proposed Procedures p Cystoscopy 18036 N13.5 Z96.0(Not Applicable) - Nnamdi Mayes MD s right Ureteral Stent Exchange(Right) - Nnamdi Mayes MD Familial anesthetic complications: none Was Beta Chelsie taken within 24 hours: N/A Was Clonidine taken within 24 hours: N/A Last intake: Intake Last Liquid Date 02/03/21 Last Liquid Time 23:30 Last Solid Date 02/03/21 Last Solid Time 18:00 Social: Social History: Tobacco Packs per day: 0.5 Exam: Pre-Anes Outpt Exam: alert, oriented x 3, clear to auscultation bilaterally and regular rate & rhythm Airway: Submandibular: WNL Cervical ROM: WNL MP: 1 Additional comments: poor Pulmonary: Pulmonary: COPD CV/HEM: CV/HEM: HTN Hepatic: Hepatic: None reported GI: GI: None reported Metabolic: Metabolic: None reported Musc/skel: Musc/skel: None reported Neuropsych: Neuropsych: TIA (12 year ago) Anesthetic Plan: ASA status: 2 Anesthesia: General and MAC Risk of > 500 ml blood loss (7ml/kg in children): No Meds/Allergies Current Medications: Current Medications Generic Name Dose Route Start Last Admin Trade Name Freq PRN Reason Stop Dose Admin Sodium Chloride 1,000 mls @ 30 ml s/hr 02/04/21 10:30 02/04/21 10:48 Sodium Chloride 0.9% IV 02/05/21 10:29 30 mls/hr .Q24H KORTNEY Administration PFSH Anesthesia PFSH: Medical History Extrinsic ureteral obstruction Retained ureteral stent Urinary incontinence Surgical History H/O arthroscopic knee surgery bilateral H/O oral surgery H/O shoulder surgery H/O total hip arthroplasty right H/O: H/O: hysterectomy History of colon surgery Family History Mother , at age 79 Hypertension Peripheral artery disease Diabetes Father , at age 47 Cancer pancreatic and lung Social History Smoking and tobacco status: current every day smoker Alcohol intake: never Marital status: Legally Current occupational status: retired History of recent travel: No Data Anesthesia Cardiac Studies: No Data to Display
[2021-02-04 11:59] VITALS: BP 95/52; PULSE 90; RESP 12; TEMP 36.5; O2SAT 96
--- NOTE | 2021-02-04 12:04 | P.PCN_ITS ---
PACU note PACU note: VSS, Good respiratory effort, report to WEAPONS ENGINEER Post-Anesthesia Exam: awake
--- NOTE | 2021-02-04 12:04 | PM.PACU ---
PACU note PACU note: VSS, Good respiratory effort, report to VP TREASURER Post-Anesthesia Exam: awake
[2021-02-04 12:05] VITALS: BP 123/60; PULSE 86; RESP 14; O2SAT 95
--- NOTE | 2021-02-04 12:06 | P.OP_ITS ---
Operative Report Date of procedure: February 04, 2021 Pre-op Diagnosis: Chronic right ureteral obstruction Post-op diagnosis: same Procedure Done: Cystoscopy, exchange right ureteral stent Pathology: none sent Surgeon: Sugey Anesthesia: MAC Urine output: Not measured Complications: None Findings: Stent was in good shape. No increased 24 cm double-pigtail without string Condition: stable Disposition: PACU Brief History: Denia is a very pleasant 75-year-old . She is managed with a chronic indwelling stent and has done well. Due for stent change. Last one was about 4-1/2 months ago. Recent KUB showed no evidence of encrustation Procedure: After routine preoperative evaluation examination and obtaining of informed consent she was taken to the operating suite on 02/04/2021 where MAC was administered without difficulty. Preoperative antibiotics were administered, beta-amado protocol confirmed. SCDs were confirmed to be functioning. Prepped and draped in usual sterile fashion in dorsolithotomy position paying careful attention to avoiding pressure points 21 Yoruba cystoscope with 30 degree lens was introduced into the urethra meatus and advanced into the bladder under videoscopy. Stent was not encrusted. The end was easily secured and withdrawn through the urethral meatus and a flexible tip guidewire was easily advanced up the right ureteral stent curling in the area of the upper pole calyx. The stent was easily removed over the guidewire and the cystoscope was then backloaded over the guidewire. A 7 Yoruba by 24 cm double-pigtail stent was then passed through the cystoscope up the right ureter into appropriate position as confirmed via fluoroscopy and cystoscopy. The bladder was drained. Procedure went well. The stent was confirmed to be draining. Tolerated procedure well without complications and was awakened in the operating room and returned to the cart room in stable condition. PLANS follow-up in approximately 4 months with a KUB
[2021-02-04 12:10] VITALS: BP 124/53; PULSE 80; RESP 14; TEMP 36.8; O2SAT 95
[2021-02-04 12:18] VITALS: BP 110/58; PULSE 85; RESP 16; TEMP 36.6; O2SAT 98
[2021-02-04 12:48] VITALS: BP 118/57; PULSE 89; RESP 18; TEMP 36.6; O2SAT 97
--- NOTE | 2021-02-04 14:12 | ANE.PACU2 ---
Inpatient post-anesthesia follow up: Airway intact: Yes Vital signs: Temperature 97.8 F Pulse Rate 89 Respiratory Rate 18 Blood Pressure 118/57 Pulse Oximetry 97 Oxygen Delivery Me thod Room Air Oxygen Flow Rate Fraction of Inspir ed Oxygen Hydration adequate: Yes Nausea and vomiting: No Pain level: 2 Mental status: Baseline
== END 2021-02-04 13:00 | disposition home or self-care (01) ==
PROVIDERS: PCP Family Medicine; Visit Provider Urology
PROC: 0TJB8ZZ Inspection of Bladder, Via Natural or Artificial Opening Endoscopic (ICD-10-PCS; CPT 52000; principal; 2021-02-04 11:30)
PROC: (CPT 52332; 2021-02-04 11:30)
DX: N20.1 Calculus of ureter (principal); J44.9 Chronic obstructive pulmonary disease, unspecified; I10 Essential (primary) hypertension; Z86.73 Personal history of transient ischemic attack (TIA), and cerebral infarction without residual deficits; F17.210 Nicotine dependence, cigarettes, uncomplicated
CPT/HCPCS: 52332; 76000; C2625; J1956; J2704; J3010; J7030

== ENCOUNTER → 2021-03-10 08:36 | Outpatient (BNVA) | payer MEDICARE, MEDICAID, SELFPAY | PROVIDERS: PCP Family Medicine; Visit Provider Specialist | DX: M25.852 Other specified joint disorders, left hip (principal); M16.11 Unilateral primary osteoarthritis, right hip; M25.552 Pain in left hip; M25.551 Pain in right hip | CPT/HCPCS: 73502 ==

== ENCOUNTER 2021-03-19 07:47 | Outpatient (CLI) | payer MEDICARE, MEDICAID, SELFPAY ==
--- NOTE | 2021-03-19 08:03 | CT_ITS ---
WS: [id number] LDCT LUNG CANCER SCREENING HISTORY: NICOTINE Dependence, cigarettes, UNCOMPLICATED TECHNIQUE: Axial imaging performed from the apices to 1 cm below the costophrenic angles. Coronal and sagittal reformats are submitted with axial MIP series. All CT scans at [facility] use at least one of these dose optimization techniques: automated exposure control; mA and/or kV adjustment per patient size (includes targeted exams where dose is matched to clinical indication); or iterativ e reconstruction. DLP: 51.42 mGy.cm DIvol: 1.58 mGy COMPARISON: 07/16/2020 Diagnostic quality: Satisfactory Lung Nodules: Curvilinear atelectasis at the lung bases. No focal nodule. There is an endobronchial l esion extending into the inferior RIGHT lower lobe bronchial tree. Endobronchial lesion is segmental measuring 6 mm. There is a small amount of postobstructive subsegmental atelectasis in the anterior and inferior RIGHT upper lobe. Lungs: Hyperexpansion with emphysematous changes and atelectasis. Heart: Normal size heart. Moderate coronary artery calcification. Other findings: Mild atherosclerosis aorta. No effusions. CT/CT lung screening 89729 IMPRESSION: LUNG-RADS: 4A-Probably Suspicious FOLLOW UP: 3 Month LDCT Consider follow-up bronchoscopy to evaluate the RIGHT upper lobe endobronchial lesion or 3 month low-dose CT.
== END 2021-03-19 07:48 | disposition home or self-care (01) ==
LOC: RAD 07:54
PROVIDERS: PCP Family Medicine; Visit Provider Family Medicine
DX: Z12.2 Encounter for screening for malignant neoplasm of respiratory organs (principal); F17.210 Nicotine dependence, cigarettes, uncomplicated
CPT/HCPCS: 71271

== ENCOUNTER 2021-03-30 16:20 | Emergency (ER) | payer MEDICARE, MEDICAID, SELFPAY ==
[2021-03-30 16:44] VITALS: BP 180/67; PULSE 88; RESP 14; TEMP 36.4; O2SAT 100; BMI 25.7
--- NOTE | 2021-03-30 17:27 | W.ED.BACK ---
HPI - Back Pain/Injury General: Chief Complaint: Back Pain/Injury Stated Complaint: BACK PAIN WRAPS AROUND TO CHEST Time Seen by Provider: 03/30/21 17:26 History of Present Illness: HPI Narrative: 75-year-old female presents emergency room complaining of back pain. Takes Tylenol and it worsens. No recall of any particular injury or trauma. States she just woke up this morning and seemed to as slept wrong on her back and is worsened. She has intermittent episodes of spasm but no pain radiating to lower extremities no difficulty with bowel or bladder control. MD elicited complaint: back pain Pertinent past history: prior back pain Onset (ago): hour(s) Timing: intermittent and progressively worsening Severity: moderate Similar Symptoms Previously: Yes Quality: spasming Location: lumbar spine Radiation: none Exacerbating factors: movement and walking Relieving factors: immobilization and supine Associated symptoms: Deny abdominal pain, arthralgias, chills, change in bowel habits, difficulty walking, dysuria, fatigue, fecal incontinence, fever(s), hematuria, myalgias, nausea, numbness, syncope, tingling/numbness/burning, urinary frequency, urinary urgency, vomiting or weakness Work related injury: No Review of Systems Const: Denies: fever(s), chills or fatigue ENMT: Denies: throat pain, ear or mastoid pain, nasal discharge or nasal congestion Card: Denies: syncope Resp: Denies: dyspnea, productive cough or non-productive cough GI: Denies: abdominal pain, nausea, vomiting, fecal incontinence or change in bowel habits : Denies: dysuria, urinary urgency or hematuria Skin/Breast: Denies: rash or pruritus Neuro: Denies: difficulty walking PFSH ED PFSH: Medical History Extrinsic ureteral obstruction Retained ureteral stent Urinary incontinence Surgical History H/O arthroscopic knee surgery bilateral H/O oral surgery H/O shoulder surgery H/O total hip arthroplasty right H/O: H/O: hysterectomy History of colon surgery Family History Mother , at age 79 Hypertension Peripheral artery disease Diabetes Father , at age 47 Cancer pancreatic and lung Social History Smoking and tobacco status: current every day smoker Alcohol intake: never Marital status: Legally Current occupational status: retired History of recent travel: No Physical Exam Const: COMMON NORMALS: no acute distress GENERAL APPEARANCE: cooperative and comfortable ORIENTATION/CONSCIOUSNESS: Yes awake, Yes oriented to person, Yes oriented to place and Yes oriented to time HENMT: COMMON NORMALS: normocephalic, atraumatic and hearing grossly normal bilaterally HEAD & SCALP: normocephalic and atraumatic Neck/C-Spine: COMMON NORMALS: no JVD Resp: COMMON NORMALS: normal respiratory effort, No retractions, No use of accessory muscles and clear to auscultation bilaterally AUSCULTATION: clear to auscultation bilaterally Cardio: COMMON NORMALS: no JVD, regular rate, regular rhythm and No murmurs present (Cardio) RATE: regular rate RHYTHM: regular rhythm GI: PALPATION: Yes Tenderness to palpation present (GI) and Yes Guarding due to palpation present (GI) Extremity: COMMON NORMALS: normal to inspection, capillary refill normal, no clubbing, cyanosis or edema, no calf tenderness and no pedal edema OTHER: Get a straight leg raising sensation lower extremities normal deep tendon reflex +2/4 patellar tendons Neuro: SENSORIUM/ORIENTATION: Yes oriented to person, Yes oriented to place and Yes oriented to time Skin: COMMON NORMALS: no rashes or lesions noted GENERAL SKIN EXAM: no rashes or lesions noted Course Vital Signs: Vital signs: Vital Signs Temperature 97.6 F 03/30/21 16:44 Pulse Rate 85 03/30/21 18:00 Respiratory Rate 18 03/30/21 18:00 Blood Pressure 196/76 03/30/21 18:00 Pulse Oximetry 97 03/30/21 18:00 MDM - Back Pain/Injury MDM Narrative: Medical decision making narrative: Patient has no radicular symptoms. Patient was given several injections here she did have some improvement discharged home with diclofenac Medrol dose pack tizanidine hydrocodone as needed have her follow-up with her primary care doctor if not improving. Discharge Plan Discharge Patient Disposition: Home Clinical Impression: Strain of lumbar region Condition: Stable Prescriptions: New hydrocodone-acetaminophen 5-325 mg tablet 1 tab PO Q6H PRN (Reason: pain) Qty: 15 RF: 0 diclofenac sodium 75 mg tablet,delayed release (DR/EC) 75 mg PO Q12H PRN (Reason: pain) Qty: 20 RF: 0 Medrol (Harry) 4 mg tablets,dose pack See Rx Instructions .ROUTE .COMPLEX Qty: 21 RF: 0 tizanidine 4 mg capsule 4 mg PO Q6H PRN (Reason: muscle spasticity) Qty: 30 RF: 0 No Action acetaminophen [Tylenol] 325 mg tablet 325 mg PO QID PRN (Reason: Pain) RF: 0 multivitamin [One Daily Multivitamin] Tablet 1 tab PO DAILY RF: 0 (DME) Heel lift See Rx Instructions .Route .MEDSUPPLY Qty: 1 RF: 0 amlodipine 2.5 mg tablet 2.5 mg PO DAILY PRN (Reason: Blood Pressure) RF: 0 escitalopram oxalate 20 mg Tablet 20 mg PO DAILY RF: 0 Discharge Orders: Discharge ED (Routine); Ordered 03/30/21 Ordered By: Ambrose Howell Referrals: Catalino Sanders MD [Primary Care Provider] - Discharge Diet: Usual diet Discharge Activity: Limit activity as instructed Patient Instructions: Opioid Safety Activity Restrictions/Additional Instructions: If you are not improving over the next few days follow-up with your primary care doctor. Coding Level of Care Code ED Director Of Student Financial Services for Isi Calhoun
[2021-03-30 18:00] VITALS: BP 196/76; PULSE 85; RESP 18; O2SAT 97
[2021-03-30] MEDS: dexamethasone 10 mg/mL INJ IM (18:06)
[2021-03-30] MEDS: orphenadrine 30 mg/mL Inj 2 mL 60 MG IM (18:07)
[2021-03-30] MEDS: ketorolac 60 mg/2 mL INJ 15 MG IM (18:07)
== END 2021-03-30 18:50 | disposition home or self-care (01) ==
PROVIDERS: Emergency Provider Family Medicine; PCP Family Medicine
DX: S39.012A Strain of muscle, fascia and tendon of lower back, initial encounter (principal); F17.200 Nicotine dependence, unspecified, uncomplicated; X58.XXXA Exposure to other specified factors, initial encounter
CPT/HCPCS: 96372; 99283; J1100; J1885; J2360

== ENCOUNTER → 2021-04-08 09:39 | Outpatient (BNVA) | payer MEDICARE, MEDICAID, SELFPAY | PROVIDERS: PCP Family Medicine; Visit Provider Internal Medicine Critical Care Medicine | DX: R91.1 Solitary pulmonary nodule (principal); Z20.822 Contact with and (suspected) exposure to COVID-19 | CPT/HCPCS: 87635 ==

== ENCOUNTER 2021-04-13 13:14 | Day surgery (SDC) | payer MEDICARE, MEDICAID, SELFPAY ==
[2021-04-09 06:24] VITALS: BMI 25.7
--- NOTE | 2021-04-13 13:31 | ANES.PREANE2 ---
Pre-Anesthetic Assessment Pre-Anesthetic Assessment: Height/Weight: Height 1.55 m Weight 61.689 kg Preop Diagnosis: Chronic right ureteral obstruction Proposed Procedure: Operation Date: 04/13/21 14:45 [place] [id number] R91.1(Not Applicable) - Arely Johnson MD Familial anesthetic complications: None Was Beta Chelsie taken within 24 hours: N/A Was Clonidine taken within 24 hours: N/A Last intake: > 8 hrs Social: Social History: Tobacco and No alcohol Exam: Pre-Anes Outpt Exam: alert, oriented x 3, clear to auscultation bilaterally and regular rate & rhythm Airway: Cervical ROM: WNL MP: 4 Dentition: False Additional comments: small mouth opening Pulmonary: Pulmonary: COPD Comments: nodule Neuropsych: Neuropsych: TIA (11 years ago) Anesthetic Plan: ASA status: 3 Anesthesia: MAC Risk of > 500 ml blood loss (7ml/kg in children): No PFSH Anesthesia PFSH: Medical History (Updated 04/07/21 @ 00:01 by ) Extrinsic ureteral obstruction Retained ureteral stent Urinary incontinence Surgical History H/O arthroscopic knee surgery bilateral H/O oral surgery H/O shoulder surgery H/O total hip arthroplasty right H/O: H/O: hysterectomy History of colon surgery Family History Mother , at age 79 Hypertension Peripheral artery disease Diabetes Father , at age 47 Cancer pancreatic and lung Social History Second hand smoke exposure: Yes Smoking risk assessment/counseling performed?: Yes Alcohol intake: never Counseling given: No Lives independently: Yes Housing: Apartment Marital status: Legally Current occupational status: retired History of recent travel: No Current gender identity: Female Data Anesthesia Cardiac Studies: No Data to Display
[2021-04-13 13:45] VITALS: BP 157/82; PULSE 82; RESP 18; TEMP 36.8; O2SAT 99
[2021-04-13] MEDS: sodium chloride 0.9% 1,000 ML 30 ML IV (14:17)
--- NOTE | 2021-04-13 15:24 | W.PM.OPSUD ---
Surgery/Procedure H&P Update DATE OF PROCEDURE: April 13, 2021 DATE H&P PERFORMED: 04/05/21 H&P UPDATE INFORMATION: I have reviewed H&P completed within last 30 days, I have examined patient prior to procedure and No changes to prior documentation PREOP DIAGNOSIS: Right upper lobe endobronchial lesion PLANNED PROCEDURE: Bronchoscopy inspection of the airway, possible endobronchial biopsy, bronchoalveolar lavage, Cytobrush, control of bleeding Operation Date: 04/13/21 14:45 Proposed Procedures p Ebus [id number] R91.1(Not Applicable) - Biplab MD Elizabeth
[2021-04-13] MEDS: lidocaine 1% INJ 20 mL XX (15:28)
--- NOTE | 2021-04-13 15:37 | PM.OP ---
Operative Report Date of procedure: April 13, 2021 Pre-op Diagnosis: Right upper lobe endobronchial lesion Post-op diagnosis: same Brief History: This is a 75-year-old lady with recently identified endobronchial lesion in the anterior segment of right upper lobe coming in for bronchoscopic evaluation. Procedure: Name of the procedure: Bronchoscopy inspection of the airway, possible endobronchial biopsy, bronchoalveolar lavage, Cytobrush and control of bleeding Indication: Right upper lobe endobronchial lesion in the anterior segmental bronchus. Anesthesia: Monitored anesthesia care. Local anesthesia: 1% lidocaine instilled on the vocal cords, 3 mL, 1% lidocaine in the airway and amarilis a total of 7 mL. Description of the procedure: The patient was positioned optimally. Monitored anesthesia care was initiated by the anesthesia team. The bronchoscope was advanced through the mouth. The vocal cords and epiglottis were anesthetized with 1% lidocaine. The bronchoscope was passed through the vocal cords and the airway was anesthetized with 1% lidocaine again. The trachea was normal. The amarilis was sharp. The amarilis and the right and left mainstem bronchi were anesthetized with 1% lidocaine. The airways were then examined in a systematic manner. The bronchoscope was introduced into the left mainstem bronchus. The left upper lobe, lingula and left lower lobe bronchi were examined up to the third subsegmental level and no abnormalities were identified. Bronchoscope was introduced into the right mainstem bronchus. The right middle lobe and lower lobe bronchi were examined up to the third subsegmental level and appeared normal. The right upper lobe bronchus was then examined carefully. The bronchoscope was introduced into the right upper lobe anterior, apical and posterior segment and all visible airways were examined. No endobronchial lesion was identified. Complications: There is no immediate complications.
[2021-04-13 15:41] VITALS: BP 105/64; PULSE 72; RESP 20; TEMP 36.1; O2SAT 99
[2021-04-13 15:56] VITALS: BP 122/70; PULSE 93; RESP 20; TEMP 36.1; O2SAT 100
[2021-04-13 15:59] VITALS: BP 152/67; PULSE 95; RESP 18; TEMP 36.1; O2SAT 100
[2021-04-13 16:14] VITALS: BP 169/56; PULSE 65; RESP 18; O2SAT 100
--- NOTE | 2021-04-13 17:11 | ANE.PACU2 ---
Inpatient post-anesthesia follow up: Airway intact: Yes Vital signs: Temperature 97 F Pulse Rate 65 Respiratory Rate 18 Blood Pressure 169/56 Pulse Oximetry 100 Oxygen Delivery Me thod Room Air Oxygen Flow Rate 7 Fraction of Inspir ed Oxygen Hydration adequate: Yes Nausea and vomiting: No Pain level: 2 Mental status: Baseline
== END 2021-04-13 16:27 | disposition home or self-care (01) ==
PROVIDERS: PCP Family Medicine; Visit Provider Internal Medicine Critical Care Medicine
PROC: 0BJ08ZZ Inspection of Tracheobronchial Tree, Via Natural or Artificial Opening Endoscopic (ICD-10-PCS; CPT 31622; principal; 2021-04-13 14:35)
DX: R91.1 Solitary pulmonary nodule (principal); J44.9 Chronic obstructive pulmonary disease, unspecified; Z86.73 Personal history of transient ischemic attack (TIA), and cerebral infarction without residual deficits
CPT/HCPCS: 31622; 96360; 96361; J7030

== ENCOUNTER → 2021-04-20 11:37 | Outpatient (BNVA) | payer MEDICARE, MEDICAID, SELFPAY | PROVIDERS: PCP Family Medicine; Visit Provider Nurse Practitioner Family | DX: Z20.822 Contact with and (suspected) exposure to COVID-19 (principal) | CPT/HCPCS: 87635 ==

== ENCOUNTER 2021-06-08 09:35 | Outpatient (CLI) | payer MEDICARE, MEDICAID, SELFPAY ==
--- NOTE | 2021-06-08 08:45 | XR_ITS ---
WS: [id number] Exam: XR KUB [id number] Date/Time of Exam: 06/08/2021 9:43 AM Reason For Exam: URETERAL OBSTRUCTION A right ureteral pigtail catheter has been placed and appears to be in appropriate location. Several calcifications superimpose both renal silhouettes. No bowel obstruction or free air. Numerous surgica l clips in the abdomen. Right total hip replacement. No sign of organ enlargement. XR/XR KUB [id number] IMPRESSION: 1. Right-sided ureteral catheter in place appearing to be in satisfactory locat ion. 2. Calcifications superimpose both renal silhouettes which may represent renal stones. No acute abdominal process.
== END 2021-06-08 09:36 | disposition home or self-care (01) ==
PROVIDERS: PCP Family Medicine; Visit Provider Urology
DX: N13.5 Crossing vessel and stricture of ureter without hydronephrosis (principal); Z96.0 Presence of urogenital implants; Z20.822 Contact with and (suspected) exposure to COVID-19
CPT/HCPCS: 74018; 81003; 87077; 87086; 87184; 87635

== ENCOUNTER 2021-06-14 13:34 | Day surgery (SDC) | payer MEDICARE, MEDICAID, SELFPAY ==
[2021-06-11 09:03] VITALS: BMI 25.3
--- NOTE | 2021-06-14 | SCC_ITS ---
Procedure Done: 1. Cystoscopy with exchange of right ureteral stent Fluoroscopic guidance was provided to Dr. Mayes by the radiology department. No permanent C-saman images were obtained. BRAVO
[2021-06-14 13:22] VITALS: BP 199/90; PULSE 86; RESP 15; TEMP 36.2; O2SAT 99
[2021-06-14] MEDS: sodium chloride 0.9% 1,000 ML 30 ML IV (13:45)
--- NOTE | 2021-06-14 14:59 | ANES.PREANE2 ---
Pre-Anesthetic Assessment Pre-Anesthetic Assessment: Height/Weight: Height 1.55 m Weight 60.781 kg Temp Pulse Resp BP Pulse Ox 97.2 F L 86 15 199/90 99 06/14/21 13:22 06/14/21 13:22 06/14/21 13:22 06/14/21 13:22 06/14/21 13:22 Preop Diagnosis: Extrinsic right ureteral obstruction Proposed Procedure: Operation Date: 06/14/21 14:20 Proposed Procedures p Cystoscopy 47017 Z96.0(Not Applicable) - Nnamdi Mayes MD p Ureteral Stent Exchange(Right) - Nnamdi Mayes MD Was Beta Chelsie taken within 24 hours: N/A Was Clonidine taken within 24 hours: N/A Last intake: Intake Last Liquid Date 06/14/21 Last Liquid Time 09:00 Last Solid Date 06/13/21 Last Solid Time 21:00 Social: Social History: Tobacco and No alcohol Exam: Pre-Anes Outpt Exam: alert, oriented x 3 and regular rate & rhythm Airway: Submandibular: WNL Cervical ROM: WNL MP: 2 Dentition: False Pulmonary: Pulmonary: COPD CV/HEM: CV/HEM: CAD and HTN Anesthetic Plan: ASA status: 3 Anesthesia: General Risk of > 500 ml blood loss (7ml/kg in children): No Meds/Allergies Current Medications: Current Medications Generic Name Dose Route Start Last Admin Trade Name Freq PRN Reason Stop Dose Admin Sodium Chloride 1,000 mls @ 30 ml s/hr 06/14/21 13:30 06/14/21 13:45 Sodium Chloride 0.9% IV 06/15/21 13:29 30 mls/hr .Q24H KORTNEY Administration PFSH Anesthesia PFSH: Medical History Extrinsic ureteral obstruction Retained ureteral stent Urinary incontinence Surgical History H/O arthroscopic knee surgery bilateral H/O oral surgery H/O shoulder surgery H/O total hip arthroplasty right H/O: H/O: hysterectomy History of colon surgery Family History Mother , at age 79 Hypertension Peripheral artery disease Diabetes Father , at age 47 Cancer pancreatic and lung Social History Second hand smoke exposure: Yes Smoking risk assessment/counseling performed?: Yes Alcohol intake: never Lives independently: Yes Housing: Apartment Marital status: Legally Current occupational status: retired and disabled History of recent travel: No Current gender identity: Female Data Anesthesia Cardiac Studies: No Data to Display
--- NOTE | 2021-06-14 16:03 | P.HPUD_ITS ---
Surgery/Procedure H&P Update DATE OF PROCEDURE: June 14, 2021 DATE H&P PERFORMED: 06/08/21 H&P UPDATE INFORMATION: I have reviewed H&P completed within last 30 days, I have examined patient prior to procedure, No changes to prior documentation and H&P is in [facility] EMR on date indicated PREOP DIAGNOSIS: Extrinsic right ureteral obstruction PLANNED PROCEDURE: Operation Date: 06/14/21 14:20 Proposed Procedures p Cystoscopy 99107 Z96.0(Not Applicable) - Nnamdi Mayes MD p Ureteral Stent Exchange(Right) - Nnamdi Mayes MD
[2021-06-14] MEDS: levofloxacin-dextrose 5 % 500 MG/100 ML PREMIX 100 MG IV (16:14)
--- NOTE | 2021-06-14 16:19 | P.OP_ITS ---
Operative Report Date of procedure: June 14, 2021 Pre-op Diagnosis: Extrinsic right ureteral obstruction Post-op diagnosis: same Procedure Done: 1. Cystoscopy with exchange of right ureteral stent Pathology: none sent Surgeon: Sugey Anesthesia: General Urine output: Not measured Complications: None Findings: Stent exchange without difficulty. 7 [place] by 24 cm double- pigtail without string Condition: stable Disposition: PACU Brief History: Mrs. 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 Prior ureteroscopy demonstrated a very tight ureter and it was decided at that point to continue stent indwelling for drainage of the kidney although we have discussed potential ureteroureterostomy as an alternative if she prefers. To date she has not pursued that. Procedure: After routine preoperative evaluation examination and obtaining of informed consent she was taken to the operating suite on 06/14/2021 where general anesthesia was administered without difficulty after appropriate timeout was performed, SCDs confirmed to be functioning, preoperative antibiotics administered, beta-amado protocol confirmed. Prepped and draped in usual sterile fashion in dorsolithotomy position paying careful attention to avoiding pressure points. 21 [place] cystoscope with 30 degree lens was introduced into the urethral meatus and advanced into the bladder under videoscopy. The stent was in expected position. Very minimal encrustation. Grasping forceps were used to secure the very distal aspect of the stent which was withdrawn to the urethral meatus and a flexible tip guidewire was advanced up the stent into the kidney. Stent was removed without difficulty with easy uncurling of the proximal limb. The cystoscope was then backloaded over the guidewire and a 7 [place] by 24 cm double-pigtail stent was advanced over the guidewire through the cystoscope into appropriate position as confirmed via fluoroscopy and cystoscopy. Stent was confirmed to be functioning. Bladder was drained the procedure was completed. She tolerated procedure well without complications and was awakened in the operating room and returned to the recovery room in stable condition. PLANS: 1. Anticipate discharge from outpatient surgery 2. Follow-up in about 4 months in the office with a KUB for scheduling of next stent change.
[2021-06-14 16:44] VITALS: O2SAT 99
[2021-06-14 16:45] VITALS: BP 117/57; PULSE 76; RESP 19; TEMP 36.4; O2SAT 99
[2021-06-14 16:50] VITALS: BP 117/57; PULSE 91; RESP 15; TEMP 36.1; O2SAT 97
[2021-06-14 17:04] VITALS: BP 145/67; PULSE 78; RESP 16; TEMP 36.6; O2SAT 96
[2021-06-14 17:38] VITALS: BP 141/85; PULSE 74; RESP 16; TEMP 36.8; O2SAT 98
--- NOTE | 2021-06-14 17:45 | ANE.PACU2 ---
Inpatient post-anesthesia follow up: Airway intact: Yes Vital signs: Temperature 98.2 F Pulse Rate 74 Respiratory Rate 16 Blood Pressure 141/85 Pulse Oximetry 98 Oxygen Delivery Me thod Room Air Oxygen Flow Rate 6 Fraction of Inspir ed Oxygen Hydration adequate: Yes Nausea and vomiting: No Pain level: 2 Mental status: Baseline
== END 2021-06-14 17:50 | disposition home or self-care (01) ==
PROVIDERS: PCP Family Medicine; Visit Provider Urology
PROC: 0TJB8ZZ Inspection of Bladder, Via Natural or Artificial Opening Endoscopic (ICD-10-PCS; CPT 52000; principal; 2021-06-14 14:20)
PROC: (CPT 52332; 2021-06-14 14:20)
DX: N20.1 Calculus of ureter (principal); Z96.0 Presence of urogenital implants; J44.9 Chronic obstructive pulmonary disease, unspecified; I25.10 Atherosclerotic heart disease of native coronary artery without angina pectoris; I10 Essential (primary) hypertension; Z82.49 Family history of ischemic heart disease and other diseases of the circulatory system
CPT/HCPCS: 52332; 76000; C2625; J1956; J2704; J3010; J7030

== ENCOUNTER 2021-07-12 09:35 | Outpatient (CLI) | payer MEDICARE, MEDICAID, SELFPAY ==
--- NOTE | 2021-07-12 09:41 | CT_ITS ---
WS: [id number] CT CHEST, ABDOMEN AND PELVIS WITH CONTRAST HISTORY: MALIGNANT NEOPLASM OF ENDOCERVIX, IRON DEFICIENCY ANEMIA TECHNIQUE: Contiguous 5 mm axial imaging performed through the chest, abdomen and pelvis IV contrast, oral contrast has been provided. Coronal and sagittal reformats chest. Coronal and sagittal reformat s through the abdomen and pelvis. All CT scans at [facility] use at least one of these dose o ptimization techniques: automated exposure control; mA and/or kV adjustment per patient size (include s targeted exams where dose is matched to clinical indication); or iterative reconstruction. CONTRAST: Omnipaque 300; 95 mL IV. DLP: 1743.15 mGycm COMPARISON: 07/16/[address]: Mild hyperinflation of the lungs. No suspicious mass or nodule. RIGHT bronchial wall thicke jena is not identified as well on this chest CT is thin cuts were not performed as they would be on t he lung screening CT. Linear scar RIGHT lower lobe. No mediastinal or hilar adenopathy. Heart size is normal. Mild atherosclerosis aorta. Normal size pulmonary artery. Normal soft tissues. New severe co mpression fracture of T8 since 03/19/2021. 2 mm retropulsion of the posterior vertebral body. No signif icant stenosis. Mild bilateral foraminal narrowing. Prior LEFT rotator cuff repair. Abdomen CT: Liver is normal size. Stable area of decreased attenuation along the surface of the liver . No bile duct dilatation. Gallbladder is well distended and contains a stone. No adjacent inflammati on or wall thickening. Normal portal vein. Normal pancreas and spleen. No adrenal mass. Extensive ath erosclerotic plaque within the abdominal aorta and mesenteric arteries. Moderate to severe atrophy of the RIGHT kidney. There is a double pigtail ureteral stent in good position. No hydronephrosis. Orlin ical thinning and scarring hypodensities are stable within the RIGHT kidney. LEFT kidney contains non obstructing calcifications but there is no hydronephrosis. Mild atrophy. No ascites or adenopathy. Partial colectomy. Ileocolic anastomosis to the sigmoid or descending colon. Mild reservoir effect. N o change or obstruction. Pelvic CT: Minimally distended urinary bladder. There is a pigtail in the urinary bladder from the RI GHT ureter. Status post RIGHT total hip arthroplasty. LEFT femoral head osteonecrosis. Vertebral planar CT/CT chest abd pel w con* IMPRESSION: 1. No evidence for metastatic disease within the chest, abdomen or pelvis. 2. Stable changes of partial colectomy with ileocolic anastomosis. 3. No ascites. 4. No pulmonary mass or endobronchial lesions identified. 5. New vertebroplanar compression fracture involving T8. Very minimal retropul fernando of the posterior vertebral body with mild bilateral foraminal narrowing. S uspect this is probably an osteoporotic compression fracture. No associated sof t tissue to suggest metastatic disease although this cannot be completely exclu ded. 6. Cholelithiasis without acute cholecystitis. 7. Long-term stability RIGHT renal atrophy. No change in position of the doubl e pigtail RIGHT ureteral stent. 8. Prior hysterectomy. 9. LEFT femoral head osteonecrosis.
[2021-07-12] MEDS: iohexol 300 mg/mL 50 mL Btl PO (10:33)
[2021-07-12 11:34] LABS: Blood Urea Nitrogen 8 mg/dL (8-23)
[2021-07-12] MEDS: iohexol 300 mg/mL 100 mL Btl IV (11:41)
== END 2021-07-12 09:36 | disposition home or self-care (01) ==
PROVIDERS: PCP Family Medicine; Visit Provider Internal Medicine Medical Oncology
DX: C53.0 Malignant neoplasm of endocervix (principal); D50.9 Iron deficiency anemia, unspecified; M87.9 Osteonecrosis, unspecified; Z90.710 Acquired absence of both cervix and uterus; N26.1 Atrophy of kidney (terminal); K80.20 Calculus of gallbladder without cholecystitis without obstruction; Z90.49 Acquired absence of other specified parts of digestive tract; K63.89 Other specified diseases of intestine
CPT/HCPCS: 71260; 74177; 82565; 84520; Q9967

== ENCOUNTER 2021-10-12 09:50 | Outpatient (CLI) | payer MEDICARE, MEDICAID, SELFPAY ==
--- NOTE | 2021-10-12 09:30 | XR_ITS ---
WS: [id number] ABDOMEN KUB CLINICAL INFORMATION: Renal/ureteral calculi. COMPARISON: June 08, 2021 FINDINGS: Right double-J ureteral stent. Surgical clips at the GE junction and right retroperitoneum. Sutures l eft retroperitoneum. Small calculi project over both renal fossae. Bilateral right greater than left renal atrophy. Cholelithiasis. Osteopenia. Right MEAGHAN. Advanced degenerative arthritis arthritis left hip with sclerosis in the femor al head likely due to avascular necrosis unchanged from previous. XR/XR KUB [id number] Impression: 1. Stable right double-J ureteral stent. 2. A few stable subcentimeter renal parenchymal calculi overlying both renal f rosa. 3. Cholelithiasis
== END 2021-10-12 09:51 | disposition home or self-care (01) ==
LOC: RAD 09:54
PROVIDERS: PCP Family Medicine; Visit Provider Urology
DX: N13.5 Crossing vessel and stricture of ureter without hydronephrosis (principal); Z96.0 Presence of urogenital implants; K80.20 Calculus of gallbladder without cholecystitis without obstruction; N20.0 Calculus of kidney
CPT/HCPCS: 74018

== ENCOUNTER → 2021-10-18 08:07 | Outpatient (BNVA) | payer MEDICARE, MEDICAID, SELFPAY | PROVIDERS: PCP Family Medicine; Visit Provider Nurse Practitioner Family | DX: Z96.0 Presence of urogenital implants (principal) | CPT/HCPCS: 87635 ==

== ENCOUNTER 2021-10-25 06:34 | Day surgery (SDC) | payer MEDICARE, MEDICAID, SELFPAY ==
[2021-10-22 12:33] VITALS: BMI 23.3
[2021-10-25] VITALS (9 sets, daily range): BP systolic 100–228; BP diastolic 54–130; PULSE 87–114; RESP 16–20; TEMP 35.8–36.6; O2SAT 92–100
--- NOTE | 2021-10-25 05:59 | P.HPUD_ITS ---
Surgery/Procedure H&P Update DATE OF PROCEDURE: October 25, 2021 DATE H&P PERFORMED: 10/12/21 H&P UPDATE INFORMATION: I have reviewed H&P completed within last 30 days, I have examined patient prior to procedure, H&P to be scanned into chart and H&P is in [facility] [place] on date indicated PREOP DIAGNOSIS: Extrinsic right ureteral obstruction PRIMARY INDICATION FOR PROCEDURE: Chronic RIGHT ureteral obstruction, managed with ureteral stent. PLANNED PROCEDURE: Operation Date: 10/25/21 07:00 Proposed Procedures p [id number]/z96.0(Not Applicable) - Nnamdi Mayes MD s Ureteral Stent Exchange(Right) - Nnamdi Mayes MD
[2021-10-25] MEDS: sodium chloride 0.9% 1,000 ML 30 ML IV (07:30)
--- NOTE | 2021-10-25 07:37 | PC.NURSE ---
IV started by Dr. Patel via ultrasound.
--- NOTE | 2021-10-25 07:42 | P.ANESASSM_ITS ---
Pre-Anesthetic Assessment Height/Weight: Height 1.57 m Weight 58.06 kg Temp Pulse Resp BP Pulse Ox 98 F 114 H 20 H 228/130 99 10/25/21 06:59 10/25/21 06:59 10/25/21 06:59 10/25/21 06:59 10/25/21 06:59 Preop Diagnosis: Right ureteral obstruction, due for stent change Operation Date: 10/25/21 07:00 Proposed Procedures p [id number]/z96.0(Not Applicable) - Nnamdi Mayes MD s Ureteral Stent Exchange(Right) - Nnamdi Mayes MD Was Beta Chelsie taken within 24 hours: N/A Was Clonidine taken within 24 hours: N/A Last intake: Intake Last Liquid Date 10/24/21 Last Liquid Time 22:30 Last Solid Date 10/24/21 Last Solid Time 22:30 Social Tobacco and No alcohol Exam alert, oriented x 3, clear to auscultation bilaterally and regular rate & rhythm Airway Submandibular: within normal limits Cervical ROM: Other (Limited ROM) Mallampati: Class I Comments: Comments: False uppers, missing multiple lower teeth Pulmonary None reported CV/HEM Peripheral Vascular Disease Hx of arterial bypass of lower extremity METS < 4 due to knee pain Carotid study 03/01 US/ROR carotid duplex BI IMPRESSION: 1.? Less than 50% ICA stenosis bilaterally. 2.? Mild to moderate calcified atheromatous plaque both carotid bulbs extending into the ICAs. ? Urinary obstruction s/p hysterectomy for malignancy Right renal atrophy Hepatic None reported GI None reported Metabolic None reported Musc/skel Osteoarthritis/DJD and None reported Osteonecrosis on imaging Neuropsych Transient Ischemic Attack Compression fx noted on CT 07/2021 Anesthetic Plan ASA status: 3 (75 year old female w/ hx of smoking, PVD s/p arterial bypass of LE, and METS < 4) Anesthesia: Anesthesia Evaluation and General Other: We discussed risk and benefits of general anesthesia including PONV, sore throat (sometimes severe), corneal abrasion, positioning and peripheral nerve injuries, life threatening allergic reaction, post operative ICU admission requiring prolonged intubation, stroke, heart attack, , and rare incidences of recall. Patient consents to proceed with general anesthesia. Medications/Allergies Home Medications Medication Instructions Recorded Confirmed Last Taken Type amlodipine 2.5 mg tablet 2.5 mg PO DAILY PRN 01/01/20 10/25/21 05/09/20 History escitalopram oxalate 20 mg tablet 20 mg PO DAILY 01/01/20 10/25/21 10/24/21 History acetaminophen 325 mg tablet 325 mg PO QID PRN 05/04/20 10/25/21 10/23/21 History (Tylenol) multivitamin (One Daily 1 tab PO DAILY 05/04/20 10/25/21 10/24/21 History Multivitamin) umeclidinium 62.5 mcg-vilanterol 1 inh INHALATION DAILY 30 Days #60 05/21/21 10/25/21 10/25/21 Rx 25 mcg/actuation powdr for ea inhalation (Anoro Ellipta) ascorbic acid (vitamin C) 1,000 mg 1 g PO BID tab 10/12/21 10/25/21 Unknown History tablet methenamine hippurate 1 gram tablet 1 g PO BID #60 tab 10/12/21 10/22/21 Unknown Rx Allergies Allergy/AdvReac Type Severity Reaction Status Date / Time meperidine [From Demerol] Allergy Unknown Unknown Verified 10/25/21 06:54 morphine Allergy Unknown Unknown Verified 10/25/21 06:54 [facility] Anesthesia Medical History Extrinsic ureteral obstruction Retained ureteral stent Urinary incontinence Surgical History H/O arthroscopic knee surgery bilateral H/O oral surgery H/O shoulder surgery H/O total hip arthroplasty right H/O: H/O: hysterectomy History of colon surgery Family History Mother , at age 79 Hypertension Peripheral artery disease Diabetes Father , at age 47 Cancer pancreatic and lung Social History Smoking and tobacco status: current some day smoker cigarettes Packs smoked per day: 0.5 Years cigarettes smoked: 60 [ Other cigarette details: Hx of 1 PPD x 50 Years] Second hand smoke exposure: Yes Smoking risk assessment/counseling performed?: Yes Alcohol intake: never Lives independently: Yes Housing: Apartment Marital status: Legally Current occupational status: retired and disabled History of recent travel: No Current gender identity: Female Data Anesthesia Cardiac Studies: No Data to Display
--- NOTE | 2021-10-25 07:47 | ANES.PROC ---
Anesthesia Procedures Procedure/Date: 10/25/21 Procedure Narrative: After sterile prep and using real time US guidance for vessel selection an 18 g PIV was inserted with real time visualization of needle entry and real time visualization of catheter advancement. Tolerated well. 1 attempt. Other Information: History of difficult IV for prior surgeries requiring multiple attempts requiring placement in LE.
[2021-10-25] MEDS: levofloxacin-dextrose 5 % 500 MG/100 ML PREMIX 100 MG IV (08:08)
--- NOTE | 2021-10-25 09:38 | PM.OP ---
Operative Report Date of procedure: October 25, 2021 Pre-op diagnosis: Preop Diagnosis Right ureteral obstruction, due for stent change Post-op diagnosis: Right ureteral obstruction due for stent change Procedure done: 1. Cystoscopy with right ureteral stent exchange (7 [place] by 24 cm double-pigtail Specimens removed/disposition: Stent Pathology: None Surgeon: Sugey Estimated blood loss: None Urine output: Not measured Complications: None Findings: Stent was not encrusted. 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 She developed ureteral stricture probably from ischemic changes and has been managed with long-term indwelling ureteral stent. She is due for stent change and is being admitted to outpatient surgery for that procedure today. Procedure: After routine preoperative evaluation examination and obtaining of informed consent she was taken to the operating suite on 10/25/2021 where general anesthesia was administered without difficulty after appropriate timeout was performed, SCDs confirmed to be functioning, preoperative antibiotics administered, beta-amado protocol confirmed. Prepped and draped in usual sterile fashion in dorsolithotomy position paying careful attention to avoiding pressure points. 21 Citizen [place] cystoscope with 30? lens was introduced into the urethral meatus and advanced into the bladder under videoscopy. The bladder showed some mild inflammatory changes. The stent was in the expected position with no significant encrustation. Grasping forceps were then used to secure the distal aspect of the stent which was withdrawn through the urethra meatus and a flexible tip guidewire was easily advanced up the stent uncurling the proximal end and the stent was removed. Cystoscope was then backloaded over the guidewire and a 7 [place] by 24 cm double-pigtail stent was advanced over the guidewire through the cystoscope into appropriate position as confirmed via fluoroscopy and cystoscopy. The bladder was drained and the procedure was completed. She tolerated the procedure well without complications and was awakened in the operating room and returned to the recovery room in stable condition. PLANS: 1. Anticipate discharge from outpatient surgery 2. Follow-up in about 4 months with a KUB in order to plan for next stent change.
--- NOTE | 2021-10-25 15:46 | ANE.PACU2 ---
Inpatient post-anesthesia follow up: Airway intact: Yes Vital signs: Temperature 97 F Pulse Rate 106 Respiratory Rate 18 Blood Pressure 146/100 Pulse Oximetry 97 Oxygen Delivery Me thod Room Air Oxygen Flow Rate 6 Fraction of Inspir ed Oxygen Hydration adequate: Yes Nausea and vomiting: No Pain level: 1 Mental status: Baseline
== END 2021-10-25 10:03 | disposition home or self-care (01) ==
PROVIDERS: PCP Family Medicine; Visit Provider Urology
PROC: 0TJB8ZZ Inspection of Bladder, Via Natural or Artificial Opening Endoscopic (ICD-10-PCS; CPT 52000; principal; 2021-10-25 07:00)
PROC: (CPT 52332; 2021-10-25 07:00)
DX: N20.1 Calculus of ureter (principal); I73.9 Peripheral vascular disease, unspecified; Z95.5 Presence of coronary angioplasty implant and graft; F17.210 Nicotine dependence, cigarettes, uncomplicated
CPT/HCPCS: 52332; 36410; 76937; C2625; J0330; J1956; J2001; J2370; J2704; J3010; J3490; J7030

== ENCOUNTER 2022-02-14 12:05 | Outpatient (CLI) | payer MEDICARE, MEDICAID, SELFPAY ==
--- NOTE | 2022-02-14 12:00 | XRR_ITS ---
PROCEDURE INFORMATION: Exam: XR Abdomen Exam date and time: 02/14/2022 12:24 PM Age: 76 years old Clinical indication: Condition or disease; Kidney or ureter condition; Calculus (stone) in ureter; Prior surgery; Surgery type: --, bowel ressection; Patient HX: HX of uterus, melanoma, cervix cancer; Additional info: Extrinsic ureteral obstruction, kub @ [facility] on 02/14/22 @ 12. Appt to follow TECHNIQUE: Imaging protocol: XR of the abdomen. Views: Frontal supine view of the abdomen. 1 View. COMPARISON: CR XR KUB [id number] 10/12/2021 10:04 AM FINDINGS: Gastrointestinal tract: The bowel gas pattern is nonspecific. Air filled large bowel including distal rectal gas. Vasculature: Double-J ureteric stent on the right. 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 prior hip arthroplasty on the right Other findings: Calcification overlies the lower pole the right kidney. 8 mm. XR/XR KUB [id number] IMPRESSION: 1. The bowel gas pattern is nonspecific. Air filled large bowel including distal rectal gas. 2. 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
== END 2022-02-14 12:06 | disposition home or self-care (01) ==
PROVIDERS: PCP Family Medicine; Visit Provider Urology
DX: N13.5 Crossing vessel and stricture of ureter without hydronephrosis (principal); R93.7 Abnormal findings on diagnostic imaging of other parts of musculoskeletal system; R82.81 Pyuria; Z96.0 Presence of urogenital implants
CPT/HCPCS: 74018; 81003; 99214

== ENCOUNTER 2022-02-28 09:49 | Day surgery (SDC) | payer MEDICARE, MEDICAID, SELFPAY ==
[2022-02-25 08:15] VITALS: BMI 23.6
[2022-02-28] VITALS (10 sets, daily range): BP systolic 98–141; BP diastolic 54–76; PULSE 82–98; RESP 16–20; TEMP 36.2–36.8; O2SAT 95–98
[2022-02-28] MEDS: sodium chloride 0.9% 1,000 ML 30 ML IV (10:49)
--- NOTE | 2022-02-28 10:53 | W.PM.OPSUD ---
Surgery/Procedure H&P Update DATE OF PROCEDURE: February 28, 2022 DATE H&P PERFORMED: 02/14/22 H&P UPDATE INFORMATION: I have reviewed H&P completed within last 30 days, I have examined patient prior to procedure, No changes to prior documentation and H&P is in [facility] EMR on date indicated PREOP DIAGNOSIS: Chronic right ureteral stent secondary to ureteral obstruction PLANNED PROCEDURE: Operation Date: 02/28/22 11:10 Proposed Procedures p CYSTOSCOPY RIGHT STENT EXCHANGE 16418 ,N13.5,Z96.0(Not Applicable) - Nnamdi Mayes MD s Ureteral Stent Exchange(Right) - Nnamdi Mayes MD
--- NOTE | 2022-02-28 11:06 | P.OP_ITS ---
Operative Report Date of procedure: February 28, 2022 Pre-op diagnosis: Chronic right ureteral stent secondary to ureteral obstruction Post-op diagnosis: Chronic right ureteral stent secondary to ureteral obstruction Procedure done: Cystoscopy, right ureteral stent exchange (7 Wallisian by 24 cm double- pigtail without string) Implants: Right ureteral stent Specimens removed/disposition: Stent removed. Disposed of Pathology: None Surgeon: Sugey Anesthesia: General Urine output: Not measured Complications: None Brief History: Mrs. Gerardo is a very pleasant 76-year-old white female with chronic distal ureteral obstruction secondary to scarring associated with previous treatment for cervical cancer. She has been maintained with an indwelling ureteral stent which is served her well. Her last stent change was about 4 months ago. Back now for cystoscopy and ureteral stent change. Plan is to assess the status of the stent and consider stretching interval out between changes based on encrustation status Procedure: After routine preoperative evaluation examination and obtaining of informed consent she was taken to the operating suite on 02/28/2022 where general anesthesia was administered without difficulty after appropriate timeout was performed, SCDs confirmed to be functioning, preoperative antibiotics administered, beta-amado protocol confirmed. Prepped and draped in usual sterile fashion in dorsolithotomy position paying careful attention to avoiding pressure points. 21 Wallisian cystoscope with 30 degree lens was introduced into the urethra meatus and advanced into the bladder under videoscopy. Stent was in appropriate position. Minimal encrustation. The distal aspect of the stent was grasped with grasping forceps and withdrawn through the urethral meatus and then a flexible tip guidewire was easily advanced up the stent through the proximal curl into the renal pelvis. The stent was then removed manually. Cystoscope was then backloaded over the guidewire and a 7 Wallisian by 24 cm double-pigtail stent was advanced over the guidewire through the cystoscope into appropriate position as confirmed via fluoroscopy and cystoscopy. Bladder was drained and the procedure was completed. She tolerated procedure well without complications and was awakened in the operating room and returned to the recovery room in stable condition. PLANS: 1. Anticipate discharge from outpatient surgery today 2. Follow-up in about 4 to 5 months with KUB in anticipation of stent change
--- NOTE | 2022-02-28 11:08 | ANES.PREANE2 ---
Pre-Anesthetic Assessment Height/Weight: Height 1.55 m Weight 56.699 kg Preop Diagnosis: Chronic right ureteral stent secondary to ureteral obstruction Operation Date: 02/28/22 11:10 Proposed Procedures p CYSTOSCOPY RIGHT STENT EXCHANGE 63858 ,N13.5,Z96.0(Not Applicable) - Nnamdi Mayes MD s Ureteral Stent Exchange(Right) - Nnamdi Mayes MD Familial anesthetic complications: none Was Beta Chelsie taken within 24 hours: N/A Was Clonidine taken within 24 hours: N/A Last intake: Intake Last Liquid Date 02/27/22 Last Liquid Time 18:00 Last Solid Date 02/27/22 Last Solid Time 18:00 Social Tobacco and No alcohol Exam alert, oriented x 3 and regular rate & rhythm b/l wheezing Airway Submandibular: within normal limits Cervical ROM: within normal limits Mallampati: Class II Comments: Comments: missing teeth Pulmonary Chronic Obstructive Pulmonary Disease CV/HEM Hypertension and None reported ureteral obstruction Hepatic None reported GI Gastroesophageal Reflux Disease Metabolic None reported Musc/skel None reported Neuropsych None reported Anesthetic Plan ASA status: 3 (76 year old female with hx of smoking, emphysema, and htn ) Anesthesia: Anesthesia Evaluation and General Other: We discussed risk and benefits of general anesthesia including PONV, sore throat (sometimes severe), corneal abrasion, positioning and peripheral nerve injuries, life threatening allergic reaction, post operative ICU admission requiring prolonged intubation, aspiration, stroke, heart attack, , and rare incidences of recall. Patient consents to proceed with general anesthesia. Risk of > 500 ml blood loss (7ml/kg in children): No Medications/Allergies Home Medications Medication Instructions Recorded Confirmed Last Taken Type amlodipine 2.5 mg tablet 2.5 mg PO DAILY PRN 01/01/20 02/28/22 05/09/20 History escitalopram oxalate 20 mg tablet 20 mg PO DAILY 01/01/20 02/28/22 02/27/22 History acetaminophen 325 mg tablet 325 mg PO QID PRN 05/04/20 02/28/22 02/26/22 History (Tylenol) multivitamin (One Daily 1 tab PO DAILY 05/04/20 02/28/22 02/27/22 History Multivitamin) umeclidinium 62.5 mcg-vilanterol 1 inh INHALATION DAILY 30 Days #60 05/21/21 02/28/22 10/25/21 Rx 25 mcg/actuation powdr for ea inhalation (Anoro Ellipta) Allergies Allergy/AdvReac Type Severity Reaction Status Date / Time meperidine [From Demerol] Allergy Unknown Unknown Verified 02/14/22 12:53 morphine Allergy Unknown Unknown Verified 02/14/22 12:53 Current Medications Generic Name Dose Route Start Last Admin Trade Name Freq PRN Reason Stop Dose Admin Sodium Chloride 1,000 mls @ 30 mls/hr 02/28/22 10:15 02/28/22 10:49 Sodium Chloride 0.9% IV 03/01/22 10:14 30 mls/hr .Q24H KORTNEY Administration PFSH Anesthesia Medical History Extrinsic ureteral obstruction Retained ureteral stent Urinary incontinence Surgical History H/O arthroscopic knee surgery bilateral H/O oral surgery H/O shoulder surgery H/O total hip arthroplasty right H/O: H/O: hysterectomy History of colon surgery Family History Mother , at age 79 Hypertension Peripheral artery disease Diabetes Father , at age 47 Cancer pancreatic and lung Social History Smoking and tobacco status: current some day smoker cigarettes Packs smoked per day: 0.5 Years cigarettes smoked: 60 [ Other cigarette details: Hx of 1 PPD x 50 Years] Second hand smoke exposure: Yes Smoking risk assessment/counseling performed?: Yes Alcohol intake: never Lives independently: Yes Housing: Apartment Marital status: Legally Current occupational status: retired and disabled History of recent travel: No Current gender identity: Female Data Anesthesia Cardiac Studies: No Data to Display
[2022-02-28] MEDS: levofloxacin-dextrose 5 % 500 MG/100 ML PREMIX 100 MG IV (11:15)
--- NOTE | 2022-02-28 13:58 | ANE.PACU2 ---
Inpatient post-anesthesia follow up: Airway intact: Yes Vital signs: Temperature 97.5 F Pulse Rate 82 Respiratory Rate 18 Blood Pressure 141/60 Pulse Oximetry 97 Oxygen Delivery Me thod Room Air Oxygen Flow Rate 6 Fraction of Inspir ed Oxygen Hydration adequate: Yes Nausea and vomiting: No Pain level: 1 Mental status: Baseline
== END 2022-02-28 12:55 | disposition home or self-care (01) ==
PROVIDERS: PCP Family Medicine; Visit Provider Urology
PROC: 0TJB8ZZ Inspection of Bladder, Via Natural or Artificial Opening Endoscopic (ICD-10-PCS; CPT 52000; principal; 2022-02-28 11:10)
PROC: (CPT 52332; 2022-02-28 11:10)
DX: N20.1 Calculus of ureter (principal); N13.5 Crossing vessel and stricture of ureter without hydronephrosis; I10 Essential (primary) hypertension; K21.9 Gastro-esophageal reflux disease without esophagitis; J43.8 Other emphysema; F17.210 Nicotine dependence, cigarettes, uncomplicated; R82.81 Pyuria
CPT/HCPCS: 52332; C2625; J1100; J1956; J2370; J2405; J2704; J3010; J7030

== ENCOUNTER 2022-03-14 07:32 | Emergency (ER) | payer MEDICARE, MEDICAID, SELFPAY ==
--- NOTE | 2022-03-14 07:34 | ED_ITS ---
HPI - Female Genitourinary General: Chief complaint: Vaginal Bleeding Stated complaint: Blood in urine Time Seen by Provider: 03/14/22 07:33 Source: patient Mode of arrival: ambulatory Limitations: no limitations History of Present Illness: 76 yo female comes in complaining of 2 episodes of hematuria overnight. Patient has a right ureteral stent due to ureteral injury that occurred during surgery when she had a hysterectomy. She has a little bit of urgency as well she has not had any fever sweats or chills some flank pain on the right side. She has no history of nephrolithiasis. MD elicited complaint: dysuria and UTI Onset (ago): minute(s) Severity: mild Quality of pain: cramping Consistency: intermittent Urinary symptoms: Frequency and Hematuria Exacerbating factors: none Relieving factors: none Associated symptoms: Deny abdominal pain, short of breath, fevers/chills, headache(s), nausea, rash, seizures, syncope, vaginal bleeding, vaginal discharge or weakness Treatment prior to arrival: none Review of Systems Const: Denies: fever(s), chills, body aches, change in appetite, fatigue or malaise ENMT: Denies: throat pain, ear or mastoid pain, nasal discharge or nasal congestion Card: Denies: chest pain, palpitations or syncope Resp: Denies: dyspnea, productive cough or non-productive cough GI: Denies: abdominal pain, nausea or vomiting : Reports: flank pain, dysuria, urinary frequency and hematuria; Denies: difficulty voiding, urinary urgency or vaginal discharge Skin/Breast: Denies: rash or pruritus Neuro: Denies: headache(s) PFS ED PFSH: Medical History (Updated 03/14/22 @ 09:13 by Ambrose Howell DO) Extrinsic ureteral obstruction Retained ureteral stent Urinary incontinence Surgical History H/O arthroscopic knee surgery bilateral H/O oral surgery H/O shoulder surgery H/O total hip arthroplasty right H/O: H/O: hysterectomy History of colon surgery Family History Mother , at age 79 Hypertension Peripheral artery disease Diabetes Father , at age 47 Cancer pancreatic and lung Social History Smoking and tobacco status: current some day smoker cigarettes Packs smoked per day: 0.5 Years cigarettes smoked: 60 [ Other cigarette details: Hx of 1 PPD x 50 Years] Second hand smoke exposure: Yes Smoking risk assessment/counseling performed?: Yes Alcohol intake: never Lives independently: Yes Housing: Apartment Marital status: Legally Current occupational status: retired and disabled History of recent travel: No Current gender identity: Female Physical Exam Const: GENERAL APPEARANCE: cooperative and comfortable ORIEN TATION/CONSCIOUSNESS: Yes awake, Yes oriented to person, Yes oriented to place and Yes oriented to time HENMT: COMMON NORMALS: normocephalic, atraumatic and hearing grossly normal bilaterally HEAD & SCALP: normocephalic and atraumatic Neck/C-Spine: COMMON NORMALS: no JVD Resp: COMMON NORMALS: normal respiratory effort, No retractions, No use of accessory muscles and clear to auscultation bilaterally AUSCULTATION: clear to auscultation bilaterally Cardio: COMMON NORMALS: no JVD, regular rate, regular rhythm and No murmurs present (Cardio) RATE: regular rate RHYTHM: regular rhythm GI: COMMON NORMALS: Soft to palpation and No hepatosplenomegaly present AUSCULTATION: Yes normoactive bowel sounds PALPATION: Yes Soft to palpation, No Tenderness to palpation present (GI), No Guarding due to palpation present (GI) and Yes No hepatosplenomegaly present : SPECULUM EXAM - VAGINA: No vaginal bleeding OB/EXTERNAL & SPECULUM: No vaginal bleeding Extremity: COMMON NORMALS: normal to inspection, capillary refill normal, no clubbing, cyanosis or edema, no calf tenderness and no pedal edema Neuro: SENSORIUM/ORIENTATION: Yes oriented to person, Yes oriented to place and Yes oriented to time Skin: COMMON NORMALS: no rashes or lesions noted GENERAL SKIN EXAM: no rashes or lesions noted Course Vital Signs: Vital signs: Vital Signs Temperature 98.0 F 03/14/22 07:40 Pulse Rate 119 H 03/14/22 07:40 Respiratory Rate 20 H 03/14/22 07:40 Blood Pressure 155/87 03/14/22 07:40 Pulse Oximetry 92 03/14/22 07:40 [facility] - Female Medical Decision Making Patient does have a cystitis. 2 weeks ago she had a ureteral stent replaced at that time she was doing well she is on methenamine. Her previous culture most recently was from May 2021 she had a resistant E. coli at that time. For now we will start her on Macrobid understanding we may need to adjust pending t he urine culture. I did discuss her briefly with Dr. Mayes he concurred with that approach for now and I have asked the patient to follow-up with Dr. Mayes this week via phone at his office to adjust antibiotics if needed when the urine culture is resulted. Advised patient if she runs a fever or has any worsening change symptoms return to the emergency room. Medical Records I reviewed the patient's medical records. Lab Data I reviewed the patient's lab results. : 03/14/22 08:40 03/14/22 08:20 Laboratory Results WBC 6.1 10^3/uL (4.0-10.0) 03/14/22 08:40 RBC 4.46 10^6/uL (4.1-5.3) 03/14/22 08:40 Hgb 14.1 g/dL (11.5-15.3) 03/14/22 08:40 Hct 41.1 % (37.0-47.0) 03/14/22 08:40 MCV 92.2 fl (81-99) 03/14/22 08:40 MCH 31.6 pg (28.0-34.0) 03/14/22 08:40 MCHC 34.3 g/dL (30.0-36.0) 03/14/22 08:40 RDW 13.2 % (12.1-15.1) 03/14/22 08:40 Plt Count 209 10^3/cmm (130-400) 03/14/22 08:40 MPV 9.7 fL (7.4-10.4) 03/14/22 08:40 Neut % (Auto) 68.0 % 03/14/22 08:40 Lymph % (Auto) 21.0 % 03/14/22 08:40 [place] % (Auto) 7.2 % 03/14/22 08:40 Eos % (Auto) 2.5 % 03/14/22 08:40 Baso % (Auto) 1.0 % 03/14/22 08:40 Neut # (Auto) 4.15 10^3/uL (1.8-7.7) 03/14/22 08:40 Lymph # (Auto) 1.3 10^3/uL (0.8-4.8) 03/14/22 08:40 [place] # (Auto) 0.4 10^3/uL (0.2-0.9) 03/14/22 08:40 Eos # (Auto) 0.2 10^3/uL (0.0-0.8) 03/14/22 08:40 Baso # (Auto) 0.1 10^3/uL (0.0-0.1) 03/14/22 08:40 Nucleated RBC % (auto) 0 % 03/14/22 08:40 Nucleated RBCs # 0.0 /100WBC 03/14/22 08:40 Sodium 140 mmol/L (136-145) 03/14/22 08:20 Potassium 3.7 mmol/L (3.5-5.1) 03/14/22 08:20 Chloride 108 mmol/L (98-107) H 03/14/22 08:20 Carbon Dioxide 19 mmol/L (22-29) L 03/14/22 08:20 Anion Gap 16.7 (5-19) 03/14/22 08:20 BUN 23 mg/dL (8-23) 03/14/22 08:20 Creatinine 1.0 mg/dL (0.5-0.9) H 03/14/22 08:20 GFR Calculation Not Reportable 03/14/22 08:20 Glucose 87 mg/dL (65-115) 03/14/22 08:20 Calculated Osmolality 293 mOsm/kg (285-295) 03/14/22 08:20 Calcium 8.7 mg/dL (8.5-10.5) 03/14/22 08:20 Urine Color Brown (Yellow) 03/14/22 08:20 Urine Appearance Cloudy (CLEAR) 03/14/22 08:20 Urine pH 5 (5-7) 03/14/22 08:20 Ur Specific [place] 1.010 (1.005-1.030) 03/14/22 08:20 Urine Protein 2+ (Negative) H 03/14/22 08:20 Urine Glucose (UA) Norm (Normal) 03/14/22 08:20 Urine Ketones Negative (Negative) 03/14/22 08:20 Urine Blood 3+ (Negative) H 03/14/22 08:20 Urine Nitrate Negative (Negative) 03/14/22 08:20 Urine Bilirubin Neg (Negative) 03/14/22 08:20 Urine Urobilinogen Norm mg/dL (Negative) 03/14/22 08:20 Ur Leukocyte Esterase 2+ (Negative) H 03/14/22 08:20 Urine RBC Too numerous to cnt /hpf (0-2) H 03/14/22 08:20 Urine WBC Too numerous to cnt /hpf (0-5) H 03/14/22 08:20 Ur Squamous Epith Cells 0-4 /hpf (0-5) H 03/14/22 08:20 Amorphous Sediment Not Reportable 03/14/22 08:20 Urine Bacteria 4+ /hpf (NONE) H 03/14/22 08:20 Discharge Plan Discharge Patient Disposition: Home Clinical Impression: Cystitis Condition: Stable Prescriptions: New Macrobid 100 mg capsule 100 mg PO BID 7 Days Qty: 14 0RF Rx Instructions: must administer with a meal/food No Action acetaminophen [Tylenol] 325 mg tablet 325 mg PO QID PRN (Reason: Pain) 0RF multivitamin [One Daily Multivitamin] Tablet 1 tab PO DAILY 0RF Anoro Ellipta 62.5-25 mcg/actuation blister with device 1 inh inhalation DAILY 30 Days Qty: 60 6RF methenamine hippurate 1 gram tablet 1 g PO BID Qty: 60 12RF Rx Instructions: Take 1000 mg of Vitamin C with each dose of Methenamine amlodipine 2.5 mg tablet 2.5 mg PO DAILY PRN (Reason: Blood Pressure) 0RF Rx Instructions: TAKE ONLY IF BP IS UP escitalopram oxalate 20 mg Tablet 20 mg PO DAILY 0RF Discharge Orders: Discharge ED (Routine); Ordered 03/14/22 Ordered By: Ambrose Howell Referrals: Catalino Sanders MD [Primary Care Provider] - Patient Instructions: Opioid Safety Activity Restrictions/Additional Instructions: Start antibiotic given to you today 1 pill twice daily. Follow-up with Dr. Melanie mcdaniels's office in the next 3 to 4 days to reevaluate antibiotic therapy. Coding Level of Care Code ED Acting Section Chief for Chg Fwd Exam Comprehensive
[2022-03-14 07:40] VITALS: BP 155/87; PULSE 119; RESP 20; TEMP 36.7; O2SAT 92; BMI 24.9
[2022-03-14 08:45] LABS: Add Urine Microscopic? YES; Bilirubin Urine Neg (Negative); Blood Urine 3+ (Negative); Glucose Urine UA Norm (Normal); Ketones Urine Negative (Negative); Leukocyte Esterase Urine 2+ (Negative); Nitrate Urine Negative (Negative); Protein Urine 2+ (Negative); Urine Appearance Cloudy (CLEAR); Urine Color Brown (Yellow); Urobilinogen Urine Norm (Negative); pH Urine 5 (5-7)
[2022-03-14 08:46] LABS: Add Urine Culture? Yes; Bacteria Urine 4+ /hpf; RBC Urine TOO NUMEROUS TO CNT /hpf (0-2); Squamous Epithelial Cell Urine 0-4 /hpf (0-5); WBC Urine TOO NUMEROUS TO CNT /hpf (0-5)
[2022-03-14 08:52] LABS: Anion Gap 16.7 (5-19); Blood Urea Nitrogen 23 mg/dL (8-23); Calcium 8.7 mg/dL (8.5-10.5); Carbon Dioxide 19 mmol/L (22-29); Chloride 108 mmol/L (98-107); Creatinine Clr Calc Pharmacy 40.3859; Glucose 87 mg/dL (65-115); Osmolality Calculated 293 mOsm/kg (285-295); Potassium 3.7 mmol/L (3.5-5.1); Sodium 140 mmol/L (136-145)
[2022-03-14 08:55] LABS: Basophils # 0.1 10^3/uL (0.0-0.1); Eosinophils # 0.2 10^3/uL (0.0-0.8); Eosinophils % 2.5 %; Hematocrit 41.1 % (37.0-47.0); Hemoglobin 14.1 g/dL (11.5-15.3); Lymphocytes # 1.3 10^3/uL (0.8-4.8); Mean Corpuscular HGB Conc 34.3 g/dL (30.0-36.0); Mean Corpuscular Hemoglobin 31.6 pg (28.0-34.0); Mean Corpuscular Volume 92.2 fl (81-99); Mean Platelet Volume 9.7 fL (7.4-10.4); Monocytes # 0.4 10^3/uL (0.2-0.9); Monocytes % 7.2 %; Neutrophils # 4.15 10^3/uL (1.8-7.7); Nucleated Red Blood Cells % 0 %; Platelet Count 209 10^3/cmm (130-400); Red Blood Count 4.46 10^6/uL (4.1-5.3); Red Cell Distribution Width 13.2 % (12.1-15.1); White Blood Count 6.1 10^3/uL (4.0-10.0)
== END 2022-03-14 09:20 | disposition home or self-care (01) ==
PROVIDERS: Emergency Provider Family Medicine; PCP Family Medicine
DX: N30.90 Cystitis, unspecified without hematuria (principal); F17.210 Nicotine dependence, cigarettes, uncomplicated
CPT/HCPCS: 80048; 81001; 85025; 87077; 87086; 87186; 99283

== ENCOUNTER 2022-04-26 11:30 | Observation (INO) | payer MEDICARE, MEDICAID, SELFPAY ==
[2022-04-26] VITALS (8 sets, daily range): BP systolic 124–154; BP diastolic 60–90; PULSE 73–98; RESP 16–18; TEMP 36.8; O2SAT 93–98; BMI 24.9
--- NOTE | 2022-04-26 11:37 | CTR_ITS ---
PROCEDURE INFORMATION: Exam: CT Head Without Contrast Exam date and time: 04/26/2022 12:39 PM Age: 76 years old Clinical indication: Syncope and collapse; Patient HX: PT to ED via EMS from home. She states she was outside smoking a cigarette when she suddenly felt odd and fell back onto her walker seat. Did not fall to ground. No injury. She states she just suddenly felt very weak. HX of cervical and uterine cancer; Additional info: Sycnope TECHNIQUE: Imaging protocol: Computed tomography of the head without contrast. Radiation optimization: All CT scans at this facility use at least one of these dose optimization techniques: automated exposure control; mA and/or kV adjustment per patient size (includes targeted exams where dose is matched to clinical indication); or iterative reconstruction. COMPARISON: US ROR carotid duplex BI 03/02/2021 2:09 PM RADIATION DOSE METRICS: Total DLP (mGy-cm): 1131.38 FINDINGS: Brain: No intracranial hemorrhage, edema or other acute abnormality. There is generalized chronic atrophy with prominence of the ventricles and sulci. There is decreased white matter density which indicates chronic small vessel white matter ischemia. Cerebral ventricles: There is mild ventricular prominence from chronic atrophy. Paranasal sinuses: There is mucosal thickening in the ethmoid and maxillary sinuses with a tiny amount of fluid in the left maxillary sinus. Mastoid air cells: Visualized mastoid air cells are well aerated. Bones/joints: Unremarkable. No acute fracture. Soft tissues: Unremarkable. CT/CT head wo con* [id number] IMPRESSION: 1. No acute intracranial abnormality. 2. Chronic atrophy with chronic white matter ischemic changes.
--- NOTE | 2022-04-26 11:45 | ED_ITS ---
HPI - General Adult General: Chief complaint: Syncope Stated complaint: AMS/ NEAR SYNCOPE Time Seen by Provider: 04/26/22 11:36 History of Present Illness: Patient is a 76-year-old female with a history of severe right knee arthritis presenting to the emergency room for episode of syn cope. Patient tells me that she was outside smoking 2 cigarettes and fell back into her walker when she passed out. Patient uses a walker and uses a brace around her right knee and she was walking outside about an hour and half ago when this happened. Patient does not recall what happened. Patient reports falling backwards. Patient cannot remember whether she has lost consciousness. Bystander noticed this patient was out of it for 10 minutes. There is patient denies any signs of injuries or pain currently. Patient denies any associate chest pain, shortness breath, palpitation or lightheadedness prior to the episode she experienced. Patient denies any history of seizures. Earlier to day, patient reports multiple episodes of watery stool. Patient tells me that she has been eating and drinking okay. Denies any melena or hematochezia. No prior history of heart failure. Onset: 1 hr and 45 minutes ago Duration:once lasting for 10 minutes Location:outside Severity: moderate Associated symptoms: Deny chest pain, dyspnea, nausea, rash, palpitations or vomiting Review of Systems Const: Denies: fever(s) or chills Eyes: Denies: change in vision ENMT: Denies: mouth pain Card: Denies: chest pain or palpitations Resp: Denies: dyspnea or non-productive cough GI: Denies: abdominal pain, nausea, vomiting or diarrhea : Denies: dysuria Musc: Denies: extremity pain Skin/Breast: Denies: rash or new lesions Neuro: Denies: weakness in extremities Psych: Reports: other (Normal mood) Elia/Lymph: Denies: easy bruising PFSH ED PFSH: Medical History (Updated 04/26/22 @ 16:03 by Bulmaro Layne MD) Extrinsic ureteral obstruction Retained ureteral stent Urinary incontinence Surgical History H/O arthroscopic knee surgery bilateral H/O oral surgery H/O shoulder surgery H/O total hip arthroplasty right H/O: H/O: hysterectomy History of colon surgery Family History Mother , at age 79 Hypertension Peripheral artery disease Diabetes Father , at age 47 Cancer pancreatic and lung Social History Smoking and tobacco status: current some day smoker cigarettes Packs smoked per day: 0.5 Years cigarettes smoked: 60 [ Other cigarette details: Hx of 1 PPD x 50 Years] Second hand smoke exposure: Yes Smoking risk assessment/counseling performed?: Yes Alcohol intake: never Lives independently: Yes Housing: Apartment Marital status: Legally Current occupational status: retired and disabled History of recent travel: No Current gender identity: Female Physical Exam Const: COMMON NORMALS: alert HENMT: COMMON NORMALS: atraumatic HEAD & SCALP: atraumatic MOUTH: moist mucous membranes not abnormal Eye: COMMON NORMALS: EOMs intact bilaterally and conjunctivae normal CONJUNCTIVA: Yes conjunctivae normal Neck/C-Spine: COMMON NORMALS: full ROM and supple Resp: COMMON NORMALS: normal respiratory effort and clear to auscultation bilaterally AUSCULTATION: clear to auscultation bilaterally Cardio: COMMON NORMALS: regular rate RATE: regular rate GI: COMMON NORMALS: Soft to palpation and non-tender PALPATION: Yes Soft to palpation OTHER: No focal TTP. NO guarding rebound, guarding, rigidity. No CVA tenderness to percussion. Neg Montero/Neg McBurney's point tenderness, no suprabupic tenderness to palpation. Extremity: COMMON NORMALS: full ROM NARRATIVE EXTREMITY EXAM: No lower extremity swelling Neuro: SENSORIUM/ORIENTATION: Yes alert MOTOR EXAM: No Abnormal motor strength present and Other motor observations present (no focal motor deficits) OTHER: Mental status? Awake, alert, and oriented to self, year, month, location, and situation.? Following simple axial and appendicular commands.? Has appropriate fund of knowledge, comprehension, and insight.? Able to recall and understands pertinent aspects of medical history and current treatment status.? ? Language? Speech is fluent without word-finding difficulties.? Intact naming, expression, office assistant receptionist, and repetition.? ? Cranial nerves? 2,3,4,6: PERRL, EOMI with no nystagmus. 5: Intact sensation to light touch, symmetric? 7: Smile symmetrical, no facial droop.? 8: Hearing grossly intact.? 9,10: Normal palate movement.? 11: Normal strength in trapezius bilaterally 12: Tongue protrudes midline.? ? Motor examination? Normal bulk & tone. Strength as follows (R/L): Delts (5/5), Biceps (5/5), Triceps (5/5), Wrist ext (5/5), hip flexors (5/5), plantarflexors (5/5), dorsiflexors (5/5). ? Sensation? Light Touch: Grossly intact and equal in upper and lower extremities bila terally? Romberg: Negative.? Distal joint position sense intact ? Coordination? Bpvvua-kr-vrpl-finger movements intact without dysmetria or past-pointing.? Rapid fingertaps: preserved amplitude without decriment.? No tremor, myoclonus or truncal ataxia.? ? Gait/stance? Steady, normal narrow base gait with appropriate arm swing and turning.? Tandem gait without hesitation or loss of balance. Psych: COMMON NORMALS: speech normal SPEECH: Yes normal speech MOOD & AFFECT: Yes euthymic mood Course Vital Signs: Vital signs: Vital Signs Temperature 98.2 F 04/26/22 11:34 Pulse Rate 78 04/26/22 14:25 Respiratory Rate 18 04/26/22 11:34 Blood Pressure 124/90 04/26/22 14:25 Pulse Oximetry 93 04/26/22 14:04 Oxygen Delivery Me thod 04/26/22 11:34 MDM - General Adult Medical Decision Making 76-year-old female with a history of hypertension, severe arthritis depression presenting to the emergency room for evaluation of a fall possible syncope earlier today. The episode lasted for 10 minutes. On arrival, patient is AOOx3 neurologically intact. There is no focal weakness on exam. Hemodynamically stable. Patient has a delta troponin of over 40. EKG is nonischemic. Presented with chest pain. Patient received IVF reports feeling symptomatically improved. CT head negative for any acute findings. Patient will be admitted to the hospital with troponin elevation. Patient received aspirin Lovenox. Cr of 1.2 similar to baseline. Disposition: admission Lab Data : 04/26/22 12:24 04/26/22 12:[address] 04/26/22 11:37 IMPRESSION: 1. No acute intracranial abnormality. 2. Chronic atrophy with chronic white matter ischemic changes. Laboratory Results WBC 4.6 10^3/uL (4.0-10.0) 04/26/22 12:24 RBC 4.57 10^6/uL (4.1-5.3) 04/26/22 12:24 Hgb 14.5 g/dL (11.5-15.3) 04/26/22 12:24 Hct 48.0 % (37.0-47.0) H 04/26/22 12:24 MCV 105.0 fl (81-99) H 04/26/22 12:24 MCH 31.7 pg (28.0-34.0) 04/26/22 12:24 MCHC 30.2 g/dL (30.0-36.0) 04/26/22 12: RDW 13.0 % (12.1-15.1) 04/26/22 12:24 Plt Count 173 10^3/cmm (130-400) 04/26/22 12: MPV 10.0 fL (7.4-10.4) 04/26/22 12:24 Neut % (Auto) 72.4 % 04/26/22 12:24 Lymph % (Auto) 16.3 % 04/26/22 12:24 [place] % (Auto) 9.8 % 04/26/22 12: Eos % (Auto) 0.2 % 04/26/22 12:24 Baso % (Auto) 0.9 % 04/26/22 12:24 Neut # (Auto) 3.33 10^3/uL (1.8-7.7) 04/26/22 12: Lymph # (Auto) 0.8 10^3/uL (0.8-4.8) 04/26/22 12:24 [place] # (Auto) 0.5 10^3/uL (0.2-0.9) 04/26/22 12:24 Eos # (Auto) 0.0 10^3/uL (0.0-0.8) 04/26/22 12:24 Baso # (Auto) 0.0 10^3/uL (0.0-0.1) 04/26/22 12:24 Nucleated RBC % (auto) 0 % 04/26/22:24 Nucleated RBCs # 0.0 /100WBC 04/26/22 12:24 Sodium 134 mmol/L (136-145) L 04/26/22 12:24 Potassium 4.3 mmol/L (3.5-5.1) 04/26/22 12:24 Chloride 101 mmol/L (98-107) 04/26/22 12:24 Carbon Dioxide 15 mmol/L (22-29) L 04/26/22 12:24 Anion Gap 22.3 (5-19) H 04/26/22 12:24 BUN 22 mg/dL (8-23) 04/26/22 12:24 Creatinine 1.2 mg/dL (0.5-0.9) H 04/26/22 12:24 GFR Calculation Not Reportable 04/26/22 12:24 Glucose 87 mg/dL (65-115) 04/26/22 12:24 Calculated Osmolality 281 mOsm/kg (285-295) L 04/26/22 12:24 Calcium 9.3 mg/dL (8.5-10.5) 04/26/22 12:24 Troponin T Baseline 34 ng/L (0-10) H 04/26/22 12:24 Troponin T 120 Minute 74.94 ng/L (0-10) H 04/26/22 14:10 Delta Troponin T 40.94 ABS# (0-10) H* 04/26/22 14:10 Imaging Data Other Imaging: Radiologist's impression: [address] [address] [address] Scan Report Signed Patient: Denia Gerardo Unit #: [id number] : 1945 Age/Sex: 76 / F ADM Date: 04/26/22 Loc: ER Room/Bed: Attending Dr: Ordering Provider/Ordering MD: Bulmaro Layne MD Date of Service: 04/26/22 Procedure(s): CT head wo con* [id number] Accession Number(s): [id number] Report Number: [id number] PROCEDURE INFORMATION: Exam: CT Head Without Contrast Exam date and time: 04/26/2022 12:39 PM Age: 76 years old Clinical indication: Syncope and collapse; Patient HX: PT to ED via EMS from home. She states she was outside smoking a cigarette when she suddenly felt odd and fell back onto her walker seat. Did not fall to ground. No injury. She states she just suddenly felt very weak. HX of cervical and uterine cancer; Additional info: Sycnope TECHNIQUE: Imaging protocol: Computed tomography of the head without contrast. Radiation optimization: All CT scans at this facility use at least one of these dose optimization techniques: automated exposure control; mA and/or kV adjustment per patient size (includes targeted exams where dose is matched to clinical indication); or iterative reconstruction. COMPARISON: US ROR carotid duplex BI 03/02/2021 2:09 PM RADIATION DOSE METRICS: Total DLP (mGy-cm): 1131.38 FINDINGS: Brain: No intracranial hemorrhage, edema or other acute abnormality. There is generalized chronic atrophy with prominence of the ventricles and sulci. There is decreased white matter density which indicates chronic small vessel white matter ischemia. Cerebral ventricles: There is mild ventricular prominence from chronic atrophy. Paranasal sinuses: There is mucosal thickening in the ethmoid and maxillary sinuses with a tiny amount of fluid in the left maxillary sinus. Mastoid air cells: Visualized mastoid air cells are well aerated. Bones/joints: Unremarkable. No acute fracture. Soft tissues: Unremarkable. CT/CT head wo con* [id number] IMPRESSION: 1. No acute intracranial abnormality. 2. Chronic atrophy with chronic white matter ischemic changes. ? Dictated By: Cm Coley Signed By: Cm Coley Signed Date/Time: 04/26/22 1255 DD/ 1239 Discharge Plan Discharge Patient Disposition: Admitted As Inpatient Clinical Impression: Syncope and collapse, Elevated troponin I level Condition: Stable Coding Level of Care Code ED Director Of Clinical Services for Chg Fwd Exam Comprehensive
[2022-04-26] MEDS: sodium chloride 0.9% 1,000 ML 999 ML IV (11:56)
--- NOTE | 2022-04-26 12:17 | ECG_ITS ---
[facility] Test Date: 2022-04-26 Pat Name: Denia Gerardo Department: Room: Gender: Female Industrial Specialist: : 1945 Requested By: Bulmaro Layne Order Number: [id number] Connolly MD: Meera Buckley M.D. Measurements Intervals [place] Rate: 94 P: 46 AR: 169 QRS: 68 QRSD: 81 T: 53 QT: 368 QTc: 462 Interpretive Statements SINUS RHYTHM VOLTAGE CRITERIA FOR LVH [MEETS CRITERIA IN ONE OF: R(aVL), S(V1), R(V5), R(V5/V6)+S(V1)] NONSPECIFIC ST & T-WAVE ABNORMALITY Compared to ECG 05/07/2020 12:04:03 T-wave abnormality now present Electronically Signed On 04-26-2022 17:55:37 CDT by Meera Buckley M.D. [id number]
[2022-04-26 12:37] LABS: Basophils % 0.9 %; Eosinophils % 0.2 %; Hemoglobin 14.5 g/dL (11.5-15.3); Lymphocytes # 0.8 10^3/uL (0.8-4.8); Lymphocytes % 16.3 %; Mean Corpuscular HGB Conc 30.2 g/dL (30.0-36.0); Mean Corpuscular Hemoglobin 31.7 pg (28.0-34.0); Monocytes # 0.5 10^3/uL (0.2-0.9); Monocytes % 9.8 %; Neutrophils # 3.33 10^3/uL (1.8-7.7); Neutrophils % 72.4 %; Nucleated Red Blood Cells % 0 %; Platelet Count 173 10^3/cmm (130-400); Red Blood Count 4.57 10^6/uL (4.1-5.3); White Blood Count 4.6 10^3/uL (4.0-10.0)
[2022-04-26 12:52] LABS: Blood Urea Nitrogen 22 mg/dL (8-23); Calcium 9.3 mg/dL (8.5-10.5); Carbon Dioxide 15 mmol/L (22-29); Chloride 101 mmol/L (98-107); Glucose 87 mg/dL (65-115); Osmolality Calculated 281 mOsm/kg (285-295); Sodium 134 mmol/L (136-145)
[2022-04-26 12:55] LABS: Troponin(5th) Baseline 34 ng/L (0-10)
[2022-04-26 12:56] LABS: Anion Gap 22.3 (5-19); Potassium 4.3 mmol/L (3.5-5.1)
--- NOTE | 2022-04-26 13:37 | ECG_ITS ---
[facility] Test Date: 2022-04-26 Pat Name: Denia Gerardo Department: Room: Gender: Female Field Clinical Engineer: : 1945 Requested By: Bulmaro Layne Order Number: [id number] Cathleen MD: Meera Buckley M.D. Measurements Intervals [place] Rate: 77 P: 48 TX: 153 QRS: 69 QRSD: 73 T: 71 QT: 398 QTc: 452 Interpretive Statements SINUS RHYTHM VOLTAGE CRITERIA FOR LVH [MEETS CRITERIA IN ONE OF: R(aVL), S(V1), R(V5), R(V5/V6)+S(V1)] Compared to ECG 04/26/2022 12:17:34 T-wave abnormality no longer present Electronically Signed On 04-26-2022 18:18:41 CDT by Meera Buckley M.D. [id number]
[2022-04-26 14:52] LABS: Troponin 5 2HR 74.94 ng/L (0-10)
[2022-04-26 15:10] LABS: Troponin 5 2HR Delta 40.94 ABS# (0-10)
[2022-04-26] MEDS: aspirin 325 mg Tablet PO (16:24)
--- NOTE | 2022-04-26 17:23 | ECG_ITS ---
[facility] Test Date: 2022-04-26 Pat Name: Denia Gerardo Department: Room: Gender: Female Split Leather Department Supervisor: : 1945 Requested By: Bulmaro Layne Order Number: [id number] Cathleen MD: Meera Buckley M.D. Measurements Intervals [place] Rate: 93 P: 45 MO: 166 QRS: 63 QRSD: 78 T: 65 QT: 361 QTc: 450 Interpretive Statements SINUS RHYTHM LEFT VENTRICULAR HYPERTROPHY AND ST-T CHANGE [VOLTAGE CRITERIA PLUS ST/T ABNORMALITY] Compared to ECG 04/26/2022 13:36:13 ST (T wave) deviation now present Electronically Signed On 04-26-2022 18:11:41 CDT by Meera Buckley M.D. [id number]
--- NOTE | 2022-04-26 17:44 | PM.HP ---
Providers/Chief Complaint Admitting Physician: Wendy Loya MD Primary Care Provider: Catalino Sanders MD Chief Complaint: AMS/ NEAR SYNCOPE History of Present Illness Denia Gerardo is a 76 year old female who carries history of osteoarthritis of knee, presented to the hospital for presyncopal event. Patient is stating that this morning she woke up and experienced multiple episodes of diarrhea today, she was feeling woozy when she wanted to go outside and smoke. She did not drain syncopal event however when she tried to get up from her sitting walker she felt dizzy and fell back in her walker which had sitting plates on it. She did not see any chest pain, seizure activities, fever. 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 In the ER she has been diagnosed with orthostatic hypotension hospital team has been requested to admit her observe her and start IV fluids Review of Systems Const: Denies: chills Eyes: Denies: change in vision ENMT: Denies: throat pain Card: Denies: chest pain Resp: Denies: dyspnea GI: Denies: abdominal pain : Denies: flank pain Musc: Denies: neck pain Skin/Breast: Denies: rash Neuro: Denies: headache(s) Psych: Reports: anxiety Endo: Denies: polyuria Elia/Lymph: Denies: easy bruising All/Imm: Denies: urticaria Medications/Allergies Home Medications Medication Instructions Recorded Confirmed Last Taken Type acetaminophen 325 mg tablet 325 mg PO QID PRN Pain 05/04/20 04/26/22 02/26/22 History (Tylenol) multivitamin (One Daily 1 tab PO DAILY 05/04/20 04/26/22 04/26/22 History Multivitamin) umeclidinium 62.5 mcg-vilanterol 1 inh inhalation DAILY 30 days #60 05/21/21 04/26/22 04/26/22 Rx 25 mcg/actuation powdr for ea inhalation (Anoro Ellipta) methenamine hippurate 1 gram tablet 1 g PO BID #60 tabs 03/01/22 04/26/22 04/26/22 Rx Super Beets 1 tab PO DAILY 04/26/22 04/26/22 04/26/22 History ascorbic acid (vitamin C) 1,000 mg 1,000 mg PO DAILY 04/26/22 04/26/22 04/26/22 History tablet (Vitamin C) jada root extract 300 mg 300 mg PO DAILY 04/26/22 04/26/22 04/26/22 History capsule Allergies Allergy/AdvReac Type Severity Reaction Status Date / Time meperidine [From Demerol] Allergy Unknown Unknown Verified 04/26/22 13:22 morphine Allergy Unknown Unknown Verified 04/26/22 13:22 PFSH Acute PFSH: Medical History (Updated 04/26/22 @ 17:47 by Wendy Loya MD) Extrinsic ureteral obstruction Retained ureteral stent Urinary incontinence Surgical History H/O arthroscopic knee surgery bilateral H/O oral surgery H/O shoulder surgery H/O total hip arthroplasty right H/O: H/O: hysterectomy History of colon surgery Family History Mother , at age 79 Hypertension Peripheral artery disease Diabetes Father , at age 47 Cancer pancreatic and lung Social History Smoking and tobacco status: current some day smoker cigarettes Packs smoked per day: 0.5 Years cigarettes smoked: 60 [ Other cigarette details: Hx of 1 PPD x 50 Years] Second hand smoke exposure: Yes Smoking risk assessment/counseling performed?: Yes Alcohol intake: never Lives independently: Yes Housing: Apartment Marital status: Legally Current occupational status: retired and disabled History of recent travel: No Current gender identity: Female Vitals/I&O/Wt Last Vital Signs Temp 98.2 F 04/26/22 11:34 Pulse 98 04/26/22 15:30 Resp 16 04/26/22 15:30 BP 136/63 04/26/22 15:30 Pulse Ox 98 04/26/22 15:30 O2 Del Method 04/26/22 15:30 04/26/22 04/26/22 04/26/22 06:59 14:59 22:59 Intake Total 1000 / 1000 Balance 1000 / 1000 Weight last 48 hrs Weight 59.874 kg Physical Exam Narrative: Pleasant cooperative female Looks dehydrated Currently on room air Abdomen soft Thin lean appearance She is wearing a knee brace on right leg Nonfocal neuro exam Awake and alert Nonfocal neuro exam No audible stridor or wheezing No signs of murmur, S1, S2 Data : 04/26/22 12:24 04/26/22 12:24 A&P Assessment and plan (1) Pre-syncope: Status: Acute Plan Presyncope No syncopal event or chest pain Will do echo in the morning, hydrate her She is orthostatic positive Recent diarrhea She has been taking vitamin C and methenamine for recurrent UTIs, she her urinary 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
--- NOTE | 2022-04-26 18:13 | USCV_ITS ---
Denia Gerardo Age: 76 Gender: F : 1945 Exam Date: 04/26/2022 22:57 Ordering Phys: Wendy Loya MD Technologist: MOHSEN Exam Location: [facility] – [place], [place] Indication: pre-syncope. No history of cardiac intervention per patient. BP: 136 / 63 HR: 69 Rhythm: Sinus Technical Quality: Adequate MEASUREMENTS (Male / Female) Normal Values 2D ECHO LV Diastolic Diameter PLAX 3.2 cm 4.2 - 5.9 / 3.9 - 5.3 cm LV Systolic Diameter PLAX 2.2 cm IVS Diastolic Thickness 1.2 cm 0.6 - 1.0 / 0.6 - 0.9 cm IVS Systolic Thickness 1.7 cm LVPW Diastolic Thickness 1.3 cm 0.6 - 1.0 / 0.6 - 0.9 cm LVPW Systolic Thickness 1.6 cm LVOT Diameter 1.7 cm LV Ejection Fraction 2D Teich 58.0 % LV Ejection Fraction MOD 2C 66.8 % LV Ejection Fraction 2C AL 68.2 % LA Diameter 2.4 cm LA Width 3.6 cm LA Height 4.5 cm RA Width 2.7 cm RA Height 3.3 cm Aorta at Sinotubular Diameter 2.5 cm IVC Diameter 1.7 cm M-MODE Aortic Annulus Diameter 3.0 cm LA Ao Ratio MM 0.8 MV E Point Septal Separation 0.4 cm DOPPLER AV Peak Velocity 85.0 cm/s LVOT Peak Velocity 84.0 cm/s AV Area Cont Eq vti 2.0 cm squared AV Area Cont Eq pk 2.3 cm squared MV Peak Velocity 112.0 cm/s MV Area PHT 3.6 cm squared Mitral E to A Ratio 0.8 MV E' Velocity 47.5 cm/s Mitral E to MV E' Ratio 8.9 Mitral E to LV E' Lateral Ratio 11.5 Mitral E to LV E' Septal Ratio 7.3 TR Peak Velocity 233.7 cm/s TR Peak Gradient 21.8 mmHg TV Peak E Velocity 50.0 cm/s Right Atrial Pressure 5.0 mmHg Pulmonary Artery Systolic Pressu 26.8 mmHg PV Peak Velocity 76.0 cm/s RV Acceleration Time 0.1 s RV Ejection Time 0.3 s RV AcT/ET 0.2 FINDINGS Left Ventricle Left ventricle is normal in size. LV systolic function is normal with EF of 55 to 60%. No regional wall motion abnormalities are seen. Right Ventricle RV is normal in size and function Right Atrium Normal in size Left Atrium Left atrium is mildly dilated Mitral Valve Mild mitral annular calcification is seen. Mild mitral regurgitation Aortic Valve Structurally normal aortic valve. No significant stenosis or regurgitation noted. Tricuspid Valve Trace tricuspid regurgitation. Insufficient TR jet to calculate RVSP. Pulmonic Valve Not well visualized. Trace pulmonic regurgitation Pericardium Normal Aorta Normal in size IVC CONCLUSIONS LV systolic function is normal with EF of 55 to 60%. Mildly dilated left atrium. Mild mitral annular calcification is seen. Mild mitral regurgitation. Trace tricuspid regurgitation. Trace of pulmonic regurgitation. No comparison studies are available Spencer Maciel MD (Electronically Signed) Final Date: 27 April 2022 12:25 S
[2022-04-26] MEDS: sodium chloride 0.9% 1,000 ML 75 ML IV (19:25)
[2022-04-26] MEDS: enoxaparin 60 mg/0.6 mL Syringe SUBCUT (19:47)
[2022-04-26 19:58] LABS: Thyroid Stimulating Hormone 1.79 uIU/mL (0.27-4.20)
[2022-04-26 20:14] LABS: D Dimer 1.32 ug/mIFEU (0-0.59)
[2022-04-26] MEDS: atorvastatin 40 mg Tablet 80 MG PO (20:34)
[2022-04-27 04:00] VITALS: BP 122/64; PULSE 69; RESP 18; TEMP 36.7; O2SAT 96
[2022-04-27 05:57] LABS: Eosinophils # 0.1 10^3/uL (0.0-0.8); Eosinophils % 3.1 %; Hematocrit 38.4 % (37.0-47.0); Hemoglobin 12.1 g/dL (11.5-15.3); Lymphocytes # 1.1 10^3/uL (0.8-4.8); Lymphocytes % 28.6 %; Mean Corpuscular HGB Conc 31.5 g/dL (30.0-36.0); Mean Corpuscular Hemoglobin 31.2 pg (28.0-34.0); Mean Platelet Volume 9.9 fL (7.4-10.4); Monocytes # 0.5 10^3/uL (0.2-0.9); Monocytes % 13.1 %; Neutrophils # 2.08 10^3/uL (1.8-7.7); Neutrophils % 53.7 %; Nucleated Red Blood Cells % 0 %; Platelet Count 154 10^3/cmm (130-400); Red Blood Count 3.88 10^6/uL (4.1-5.3); Red Cell Distribution Width 13.1 % (12.1-15.1); White Blood Count 3.9 10^3/uL (4.0-10.0)
[2022-04-27 06:00] VITALS: PULSE 75
[2022-04-27] MEDS: enoxaparin 60 mg/0.6 mL Syringe SUBCUT (06:04)
[2022-04-27 06:41] LABS: Anion Gap 15.7 (5-19); Blood Urea Nitrogen 26 mg/dL (8-23); Calcium 8.8 mg/dL (8.5-10.5); Carbon Dioxide 18 mmol/L (22-29); Chloride 111 mmol/L (98-107); Glucose 83 mg/dL (65-115); Magnesium 2.3 mg/dL (1.7-2.3); Osmolality Calculated 296 mOsm/kg (285-295); Potassium 3.7 mmol/L (3.5-5.1); Sodium 141 mmol/L (136-145)
[2022-04-27 07:36] VITALS: PULSE 91; RESP 16; O2SAT 97
[2022-04-27 08:00] VITALS: BP 161/66; PULSE 63; RESP 15; TEMP 36.4; O2SAT 96
--- NOTE | 2022-04-27 08:20 | USCV_ITS ---
Denia Gerardo Age: 76 Gender: F : 1945 Exam Date: 04/27/2022 11:16 Ordering Phys: Wendy Loya MD Technologist: Grover Pierre Exam Location: [facility] – [place]_ Indication: ? pe PROCEDURES: The venous duplex Doppler examination of both lower extremities was performed in the standard fashion. The following venous structures were evaluated: common femoral vein, profunda vein, proximal portion of the greater saphenous vein, superficial femoral vein, and the popliteal vein. In addition, the posterior tibial and peroneal trunk were evaluated. FINDINGS: Normal 2-D Doppler and augmentation and compressibility throughout the lower extremity venous structures. Additional imaging through the proximal calf veins also reveals no thrombus. Limited evaluation of the greater saphenous vein is patent with no thrombus.. CONCLUSIONS No evidence of right lower extremity DVT. No evidence of left lower extremity DVT. Matthew Goldberg MD (Electronically Signed) Final Date: 27 April 2022 16:04 S
[2022-04-27] MEDS: aspirin 81 mg EC Tablet PO (08:36)
[2022-04-27] MEDS: ascorbic acid 500 mg Tablet 1000 MG PO (08:36)
--- NOTE | 2022-04-27 10:52 | PM.DCS ---
Discharge Providers Date of Admission: 04/26/22 15:24 Date of Discharge: April 27, 2022 Attending Provider at Admission: Wendy Loya MD Attending Provider at Discharge: Wendy Loya MD Primary Care Provider: Catalino Sanders MD Diagnoses at Discharge Discharge Diagnosis (1) Pre-syncope: Status: Acute Reason for Visit Reason for Visit: AMS/ NEAR SYNCOPE Hospital Course Hospital Course 76-year female who presented to the hospital for presyncope. Patient experienced diarrhea on 04/26, felt dehydrated and weak and 1 presyncopal event when she was smoking outside. She did not experience chest pain, shortness of breath or syncopal event. She describes it as weakness experienced which made her fall back into her walker which had a platform. She is also suffering from knee osteoarthritis and planning to see orthopedic surgeon. She was wearing a knee brace. She was given IV fluids that improved her creatinine. ERIC resolved. Blood pressure remained stable. Head CT unremarkable. Echo report is pending. Previous carotid study in 2020 showed less than 50% stenosis. I would only prescribe her aspirin and atorvastatin because her troponin leak there was no active chest pain EKG without ischemic or infarctive changes. 6-hour troponin trending down. No active chest pain. Will give her referral to see orthopedic surgeon. Physical Exam Narrative: Patient is awake and alert Nonfocal neuro exam Abdomen soft Saturating well on room air Nonfocal neuro exam Blood pressure is stable Afebrile Discharge Data Studies Completed and Pending Completed Studies During Hospitalization Category Date Time Status CT head wo con* [id number] Stat Cat Scan 04/26/22 11:37 Completed Pending at discharge Category Date Time Status CTA PE [CT angio chest PE protcl [id number]] Routine Cat Scan 04/27/22 08:20 Ordered CV. echo complete* [id number] Routine Ultrasound 04/26/22 18:13 Taken US venous duplex lower extremity bilat [CV venous Ultrasound 04/27/22 08:20 [place] [id number]] Routine Radiology Impressions Head CT 04/26/22 11:37 IMPRESSION: 1. No acute intracranial abnormality. 2. Chronic atrophy with chronic white matter ischemic changes. Laboratory Results WBC 3.9 10^3/uL (4.0-10.0) L 04/27/22 05:36 RBC 3.88 10^6/uL (4.1-5.3) L 04/27/22 05:36 Hgb 12.1 g/dL (11.5-15.3) 04/27/22 05:36 Hct 38.4 % (37.0-47.0) 04/27/22 05:36 MCV 99.0 fl (81-99) D 04/27/22 05:36 MCH 31.2 pg (28.0-34.0) 04/27/22 05:36 MCHC 31.5 g/dL (30.0-36.0) 04/27/22 05:36 RDW 13.1 % (12.1-15.1) 04/27/22 05:36 Plt Count 154 10^3/cmm (130-400) 04/27/22 05:36 MPV 9.9 fL (7.4-10.4) 04/27/22 05:36 Neut % (Auto) 53.7 % 04/27/22 05:36 Lymph % (Auto) 28.6 % 04/27/22 05:36 [place] % (Auto) 13.1 % 04/27/22 05:36 Eos % (Auto) 3.1 % 04/27/22 05:36 Baso % (Auto) 1.0 % 04/27/22 05:36 Neut # (Auto) 2.08 10^3/uL (1.8-7.7) 04/27/22 05:36 Lymph # (Auto) 1.1 10^3/uL (0.8-4.8) 04/27/22 05:36 [place] # (Auto) 0.5 10^3/uL (0.2-0.9) 04/27/22 05:36 Eos # (Auto) 0.1 10^3/uL (0.0-0.8) 04/27/22 05:36 Baso # (Auto) 0.0 10^3/uL (0.0-0.1) 04/27/22 05:36 Nucleated RBC % (auto) 0 % 04/27/22 05:36 Nucleated RBCs # 0.0 /100WBC 04/27/22 05:36 D-Dimer 1.32 ug/mIFEU (0-0.59) H 04/26/22 19:40 Sodium 141 mmol/L (136-145) 04/27/22 05:36 Potassium 3.7 mmol/L (3.5-5.1) 04/27/22 05:36 Chloride 111 mmol/L (98-107) H 04/27/22 05:36 Carbon Dioxide 18 mmol/L (22-29) L 04/27/22 05:36 Anion Gap 15.7 (5-19) 04/27/22 05:36 BUN 26 mg/dL (8-23) H 04/27/22 05:36 Creatinine 0.9 mg/dL (0.5-0.9) 04/27/22 05:36 GFR Calculation Not Reportable 04/27/22 05:36 Glucose 83 mg/dL (65-115) 04/27/22 05:36 Calculated Osmolality 296 mOsm/kg (285-295) H 04/27/22 05:36 Calcium 8.8 mg/dL (8.5-10.5) 04/27/22 05:36 Magnesium 2.3 mg/dL (1.7-2.3) 04/27/22 05:36 Troponin T Baseline 34 ng/L (0-10) H 04/26/22 12:24 Troponin T 120 Minute 74.94 ng/L (0-10) H 04/26/22 14:10 Delta Troponin T 40.94 ABS# (0-10) H* 04/26/22 14:10 Troponin T Hi Sens 6Hr 59.70 ng/L (0-10) H 04/26/22 18:47 Troponin T Hi Sens 6Hr Delta 25.70 ng/L (0-12) H* 04/26/22 18:47 TSH 1.79 uIU/mL (0.27-4.20) 04/26/22 14:10 Vitals Last Vital Signs Temp 97.5 F L 04/27/22 08:00 Pulse 63 04/27/22 08:00 Resp 15 04/27/22 08:00 BP 161/66 04/27/22 08:00 Pulse Ox 96 04/27/22 08:00 O2 Del Method 04/27/22 08:00 Discharge Plan Discharge Patient Disposition: Home Condition: Stable Prescriptions: New aspirin 81 mg Tablet,Delayed Release (Dr/Ec) 81 mg PO DAILY Qty: 30 0RF atorvastatin 40 mg Tablet 40 mg PO BEDTIME Qty: 60 0RF Continued acetaminophen [Tylenol] 325 mg tablet 325 mg PO QID PRN (Reason: Pain) multivitamin [One Daily Multivitamin] Tablet 1 tab PO DAILY Anoro Ellipta 62.5-25 mcg/actuation blister with device 1 inh inhalation DAILY 30 Days Qty: 60 6RF methenamine hippurate 1 gram tablet 1 g PO BID Qty: 60 12RF Rx Instructions: Take 1000 mg of Vitamin C with each dose of Methenamine Vitamin C 1,000 mg Tablet 1,000 mg PO DAILY ashwagandha root extract 300 mg Capsule 300 mg PO DAILY Super Beets 1 tab PO DAILY Discharge Orders: Discharge Order (Routine); Ordered 04/27/22 Ordered By: Wendy Loya Referrals: Catalino Sanders MD [Primary Care Provider] - 2 weeks Raffi Vieyra MD [Physician] - 7-10 days (Right knee pain) Discharge Diet: Cardiac Discharge Activity: Increase activity as tolerated Patient Instructions: Opioid Safety Discharge Attestations Time Spent in Discharge Care*: less than 30 min Quality Metrics Clinical Quality Measures [ No reported AMI, CVA or VTE this stay] Coding Level of Care Code Acute Chg FW DC note Diagnoses Pre-syncope R55
--- NOTE | 2022-04-27 11:01 | XR_ITS ---
WS: [id number] Right knee, 3 views, 04/27/2022 Clinical Data: Knee pain Comparison: Right knee, 05/06/2010. Findings: There is joint space narrowing of the medial and lateral joint compartments. 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 No fractures or dislocations are seen. The patella is normal. There are vascular calcifications and s urgical clips in the subcutaneous tissue of the posterior right thigh. XR/XR knee RT 1-2V [id number] Impression: 1. Bilateral joint space narrowing of the right knee. 2. 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 Kellgren-Jose Antonio Classification: grade 3 (moderate): moderate multiple osteoph ytes, definite narrowing of joint space and some sclerosis and possible deformi ty of bone ends
[2022-04-27 11:58] VITALS: BP 158/71; PULSE 68; RESP 15; TEMP 36.4; O2SAT 97
--- NOTE | 2022-04-27 12:00 | PC.CHAP ---
Pastoral Care Encounter/Spiritual Assessment Type of Contact [] Declined registered respiratory therapist visit [] Patient/Family/Request visit [] Outpatient visit [] Follow-up visit [] Physician referral [] Code/Alert [x] Routine visit [] Staff referral [] Actively dying [] Patient sleeping [] Family support [] [] Out of room [] Palliative care [] [x] Receiving care in room [] Pre-surgical visit [] Trauma [] Long length of stay [] ICU visit [] Other: Relational/Emotional Strength [] Patient feels connected with others/family/visitors/staff [] Distress [] Loneliness/isolation [] Abandonment Spirituality of Patient [] Person of Ember [] Attends Rastafarian of their Ember [] Believes in Prayer [] Reads Bible or Uatsdin materials [] There are Spiritual issues to be addressed Nurse Ldr Interventions [] Prayer [] Active listening [] Non-anxious presence [] Spiritual/emotional support [] Crisis/trauma care [] Spiritual counseling [] Bereavement support [] Provided bereavement packet [] Provided Bible/devotional materials [] Provided toy/stuffed animal, coloring book to patient or family member [] Provided Communion [] Anointing/[place] [] Salvation [] Completed spiritual assessment [] Other: Impact on Illness or Injury [] Angry [] Fearful [] Anxious [] Often cries [] Exhaustion [] Unable to work [] Unable to attend mosque [] Unable to walk/stand [] Unable to read [] Unable to drive [] Unable to eat/drink [] Unable to sleep [] Unable to be with family [] Patient intubated [] Other: Summary Time spent with patient
[2022-04-27 13:30] VITALS: BP 158/71; PULSE 68; RESP 15; TEMP 36.4; O2SAT 97
--- NOTE | 2022-04-27 13:31 | PC.NURSE ---
Discharge Note Patient discharged to home via wheelchair accompanied by self. Discharge instructions reviewed with patient and/or retail representative. Mobile pharmacy medications and/or prescriptions provided. Belongings/home medications returned.
== END 2022-04-27 13:15 | disposition home or self-care (01) ==
LOC: ER 16:03 → MEDSURG 17:33
PROVIDERS: Admitting Provider Internal Medicine; Emergency Provider Emergency Medicine; PCP Family Medicine; Visit Provider Internal Medicine
DX: I95.1 Orthostatic hypotension (principal); F17.210 Nicotine dependence, cigarettes, uncomplicated; M17.11 Unilateral primary osteoarthritis, right knee
CPT/HCPCS: 36415; 70450; 73560; 80048; 83735; 84443; 84484; 85025; 85378; 93005; 93306; 93970; 96360; 96361; 96372; 97110; 97161; 99285; G0378; J1650; J7030

== ENCOUNTER → 2022-05-04 11:24 | Outpatient (BNVA) | payer MEDICARE, MEDICAID, SELFPAY | PROVIDERS: PCP Family Medicine; Referring Provider Internal Medicine; Visit Provider Orthopaedic Surgery | DX: M17.11 Unilateral primary osteoarthritis, right knee (principal); R09.89 Other specified symptoms and signs involving the circulatory and respiratory systems | CPT/HCPCS: 73565; 99204 ==

== ENCOUNTER 2022-05-06 10:48 | Outpatient (CLI) | payer MEDICARE, MEDICAID, SELFPAY ==
--- NOTE | 2022-05-06 10:59 | MR_ITS ---
WS: [id number] MRI BRAIN WITH HIGH-RESOLUTION IMAGING THROUGH THE INTERNAL AUDITORY CANALS WITHOUT CONTRAST HISTORY: UNSPECIFIED HEARING LOSS, UNSPECIFIED EAR/TINNITUS, LEFT EAR COMPARISON: [address] 04/26/2022 TECHNIQUE: Multiplanar, multisequence imaging is performed through the brain. Additional 3 mm imaging performed in multiple planes through the internal auditory canal. Patient refused IV contrast. No acute intracranial hemorrhage, midline shift, edema or mass effect. Focal subacute lacunar infarct in the RIGHT wolfe radiata. This infarct may have taken place during the prior noncontrast CT of 04/26/2022 but not apparent at that time. No associated hemorrhage. Additi onal moderate small vessel ischemic changes or confluent and patchy surrounding the ventricles extend ing above the below the lateral ventricles. Mild ischemic changes in the LEFT consuelo. Ventricles and extra-axial spaces are normal. No inferior displacement of cerebellar tonsils. Clivus and pituitary gland are normal. Internal and external auditory canals: Unremarkable. Cranial nerves VII and VIII complexes: No abnormality at the cerebellopontine angles or along the sev enth and eighth or 5th cranial nerves. No abnormality of Meckel's cave. Cerebellopontine angles: Normal. Paranasal sinuses: Extensive diffuse pansinusitis. Small air-fluid levels noted in the maxillary sinu ses. There is significant mucoperiosteal thickening throughout all sinus cavities. Mastoid air cells: Small bilateral mastoid air cell effusions. Calvarium and scalp: Normal. MR/MR iac's wo con [id number] IMPRESSION: 1. No signal abnormalities or mass effect upon the internal or external audito ry canals or cerebellopontine angles. Study performed without IV contrast at th e request of the patient. 2. Subacute lacunar infarct RIGHT wolfe radiata. This may have taken place on 04/26/2022 at the time of the patient's emergency department visit. No hemorrha ge. 3. Pansinusitis. 4. Mild bilateral mastoid air cell effusions, LEFT greater than RIGHT. 5. Moderate small vessel ischemic changes.
== END 2022-05-06 10:49 | disposition home or self-care (01) ==
LOC: RAD 10:49
PROVIDERS: PCP Family Medicine; Visit Provider Specialist
DX: H91.90 Unspecified hearing loss, unspecified ear (principal); H93.12 Tinnitus, left ear; J32.4 Chronic pansinusitis; I63.81 Other cerebral infarction due to occlusion or stenosis of small artery
CPT/HCPCS: 70551

== ENCOUNTER 2022-07-06 00:14 | Inpatient (IN) | payer MEDICARE, MEDICAID, SELFPAY ==
[2022-07-06] VITALS (22 sets, daily range): BP systolic 105–165; BP diastolic 55–84; PULSE 62–115; RESP 16–34; TEMP 36.3–36.9; O2SAT 93–98; BMI 23.8
--- NOTE | 2022-07-06 00:24 | XRR_ITS ---
PROCEDURE INFORMATION: Exam: XR Chest Exam date and time: 07/06/2022 12:36 AM Age: 76 years old Clinical indication: Shortness of breath and wheezing; Patient HX: C/O SOB with wheezing and cough. Recent sinus infection. TECHNIQUE: Imaging protocol: Radiologic exam of the chest. Views: 1 view. COMPARISON: CT chest abd pel w con* 07/12/2021 11:39 AM FINDINGS: Lungs: Emphysematous changes. Patchy bibasal ground-glass airspace atelectasis versus infiltrates. Pleural spaces: Unremarkable. No pleural effusion. No pneumothorax. Heart/Mediastinum: Unremarkable. No cardiomegaly. Bones/joints: Unremarkable. XR/XR chest 1V portable [id number] IMPRESSION: 1. Emphysematous changes. 2. Patchy bibasal ground-glass airspace atelectasis versus infiltrates.
--- NOTE | 2022-07-06 00:25 | ECG_ITS ---
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 Measurements Intervals [place] Rate: 97 P: 53 [place]: 144 QRS: 79 QRSD: 86 T: -41 QT: 332 QTc: 423 Interpretive Statements SINUS RHYTHM LEFT VENTRICULAR HYPERTROPHY AND ST-T CHANGE [VOLTAGE CRITERIA PLUS ST/T ABNORMALITY] Compared to ECG 04/26/2022 17:23:36 No significant changes Electronically Signed On 07-07-2022 7:03:25 CDT by Kishan Lozano M.D. [email or web address]
--- NOTE | 2022-07-06 00:33 | W.ED.SOB ---
HPI - SOB/Dyspnea General: Chief Complaint: Shortness of Breath/Dyspnea Stated Complaint: Difficulty breathing Time Seen by Provider: 07/06/22 00:22 Source: patient and EMS Mode of arrival: EMS Limitations: no limitations History of Present Illness: HPI Narrative: 76-year-old female states she has had some cough and congestion over the last 4 to 5 days she states that tonight she became much more short of breath. Patient is tachypneic has had a cough and is wheezy here. She denies any history of COPD or CHF. She states that she did receive a breathing treatment in route and has improved slightly. Denies any fever denies any chest pain denies any vomiting or diarrhea. Associated symptoms: Deny abdominal pain, chest pain, fever(s), nausea or vomiting Review of Systems Const: Denies: fever(s), chills, body aches or change in appetite Eyes: Denies: blurry vision or eye discomfort ENMT: Denies: throat pain or dental pain Card: Denies: chest pain Resp: Reports: dyspnea, non-productive cough and wheezing GI: Denies: abdominal pain, nausea, vomiting or diarrhea : Denies: dysuria Musc: Denies: neck pain or back pain Skin/Breast: Denies: rash Neuro: Denies: headache(s) Psych: Denies: depression Elia/Lymph: Denies: easy bruising All/Imm: Denies: urticaria PFSH ED PFSH: Medical History (Updated 07/06/22 @ 03:19 by Brit Leary MD) Elevated troponin I level Extrinsic ureteral obstruction Retained ureteral stent Syncope and collapse Urinary incontinence Surgical History H/O arthroscopic knee surgery bilateral H/O oral surgery H/O shoulder surgery H/O total hip arthroplasty right H/O: H/O: hysterectomy History of colon surgery Family History Mother , at age 79 Hypertension Peripheral artery disease Diabetes Father , at age 47 Cancer pancreatic and lung Social History Smoking and tobacco status: current every day smoker cigarettes Packs smoked per day: 0.5 Years cigarettes smoked: 60 [ Other cigarette details: Hx of 1 PPD x 50 Years] Second hand smoke exposure: Yes Smoking risk assessment/counseling performed?: Yes Alcohol intake: never Lives independently: Yes Housing: Apartment Marital status: Legally Current occupational status: retired and disabled History of recent travel: No Current gender identity: Female Physical Exam Const: COMMON NORMALS: patient oriented x3 GENERAL APPEARANCE: in distress and ill appearing HENMT: COMMON NORMALS: normocephalic and atraumatic HEAD & SCALP: normocephalic and atraumatic Eye: COMMON NORMALS: Equal, round and reactive pupils present and EOMs intact bilaterally PUPIL: Yes Equal, round and reactive pupils present Neck/C-Spine: COMMON NORMALS: full ROM and supple Chest: COMMONS NORMALS: normal inspection of the chest and normal palpation of entire chest wall Resp: EFFORT & INSPECTION: Yes tachypneic and Yes respiratory distress AUSCULTATION: rhonchi and wheezes Cardio: COMMON NORMALS: regular rate, regular rhythm and No murmurs present (Cardio) RATE: regular rate RHYTHM: regular rhythm GI: COMMON NORMALS: Normal to inspection, nondistended, normoactive bowel sounds present, Soft to palpation, non-tender and no masses PALPATION: Yes Soft to palpation Extremity: COMMON NORMALS: normal to inspection and full ROM Neuro: COMMON NORMALS: patient oriented x3, moves all extremities and no focal motor deficits Psych: COMMON NORMALS: mental status grossly normal, Normal thought process present and cooperative THOUGHT PROCESS: Normal thought process present Skin: COMMON NORMALS: no rashes or lesions noted and no wounds GENERAL SKIN EXAM: no rashes or lesions noted Course Vital Signs: Vital signs: Vital Signs Temperature 97.9 F 07/06/22 00:18 Pulse Rate 97 07/06/22 02:02 Respiratory Rate 26 H 07/06/22 02:00 Blood Pressure 134/56 07/06/22 02:00 Pulse Oximetry 95 07/06/22 02:00 Oxygen Delivery Me thod 07/06/22 02:00 Oxygen Flow Rate 4 07/06/22 02:00 MDM - SOB/Dyspnea Medical Decision Making Patient presents here with shortness of breath she is COVID-positive likely causing her dyspnea she does have an elevated BNP and troponin second troponin came down she is chest pain-free here did give her Lovenox spoke to hospitalist will admit. Lab Data : 07/06/22 00:28 07/06/22:28 Labs/Radiology: Radiology Impressions Chest X-Ray 07/06/2224 IMPRESSION: 1. Emphysematous changes. 2. Patchy bibasal ground-glass airspace atelectasis versus infiltrates. Chest CTA 07/06/22 01:24 IMPRESSION: 1. No pulmonary embolism identified. 2. Emphysematous disease. 3. Small focal area of peripheral consolidation in the right lower lobe may be consistent with atelectasis versus focal mild airspace disease. 4. Interval compression deformity at T11 not present on prior exam, with approximately 25% height loss anteriorly. Correlate with any focal pain in this region. Laboratory Results WBC 5.9 10^3/uL (4.0-10.0) 07/06/22: RBC 4.12 10^6/uL (4.1-5.3) 07/06/22: Hgb 13.1 g/dL (11.5-15.3) 07/06/22: Hct 40.6 % (37.0-47.0) 07/06/22: MCV 98.5 fl (81-99) 07/06/22: MCH 31.8 pg (28.0-34.0) 07/06/22: MCHC 32.3 g/dL (30.0-36.0) 07/06/22: RDW 13.2 % (12.1-15.1) 07/06/22: Plt Count 203 10^3/cmm (130-400) 07/06/22: MPV 10.2 fL (7.4-10.4) 07/06/22: Neut % (Auto) 52.4 % 07/06/22: Lymph % (Auto) 36.1 % 07/06/22: [place] % (Auto) 5.8 % 07/06/22: Eos % (Auto) 4.7 % 07/06/22: Baso % (Auto) 0.8 % 07/06/22: Neut # (Auto) 3.09 10^3/uL (1.8-7.7) 07/06/22: Lymph # (Auto) 2.1 10^3/uL (0.8-4.8) 07/06/22 00:28 [place] # (Auto) 0.3 10^3/uL (0.2-0.9) 07/06/22 00:28 Eos # (Auto) 0.3 10^3/uL (0.0-0.8) 07/06/22 00:28 Baso # (Auto) 0.1 10^3/uL (0.0-0.1) 07/06/22 00:28 Nucleated RBC % (auto) 0 % 07/06/22 00: Nucleated RBCs # 0.0 /100WBC 07/06/22 00: PT 13.30 SECONDS (12.1-14.9) 07/06/22 00: INR 0.98 (0.8-1.2) 07/06/22 00:28 Specimen Type Arterial 07/06/22 01:20 Sample Site Radial, left 07/06/22 01:20 ABG pH 7.42 (7.35-7.45) 07/06/22 01:20 ABG pCO2 31.2 mmHg (35-45) L 07/06/22 01:20 ABG pO2 66.2 mmHg (80.0-100.0) L 07/06/22 01:20 ABG HCO3 19.9 mmol/L (22-26) L 07/06/22 01:20 ABG Base Excess -3.6 mmol/L (-2.0-2.0) L 07/06/22 01:20 Roby Test Pos 07/06/22 01:20 Hematocrit 42.0 % (37-47) 07/06/22 01:20 O2 Delivery Device Nc 07/06/22 01:20 O2 Liters/Min 4.0 % 07/06/22 01:20 FiO2 36.0 % 07/06/22 01:20 Order Department Supervisor ID glc 07/06/22 01:20 Sodium 140 mmol/L (136-145) 07/06/22 00:28 Potassium 4.2 mmol/L (3.5-5.1) 07/06/22 00: Chloride 106 mmol/L (98-107) 07/06/22 00: Carbon Dioxide 22 mmol/L (22-29) 07/06/22 00:28 Anion Gap 16.2 (5-19) 07/06/22 00:28 BUN 24 mg/dL (8-23) H 07/06/22 00:28 Creatinine 1.1 mg/dL (0.5-0.9) H 07/06/22 00:28 GFR Calculation Not Reportable 07/06/22 00:28 Glucose 108 mg/dL (65-115) 07/06/22 00:28 Calculated Osmolality 295 mOsm/kg (285-295) 07/06/22 00:28 Calcium 9.8 mg/dL (8.5-10.5) 07/06/22 00:28 Total Bilirubin 0.4 mg/dL (0.15-1.2) 07/06/22 00:28 AST 39 U/L (0-32) H 07/06/22 00:28 ALT 24 U/L (0-33) 07/06/22 00:28 Alkaline Phosphatase 121 U/L (35-105) H 07/06/22 00:28 Troponin T Baseline 604 ng/L (0-10) H* 07/06/22 00:34 Troponin T 120 Minute 500.4 ng/L (0-10) H 07/06/22 02:06 Delta Troponin T -103.6 ABS# (0-10) L 07/06/22 02:06 NT-Pro-B Natriuret Pep 6571 pg/mL (0-450) H 07/06/22 00:28 Total Protein 7.1 g/dL (6.6-8.7) 07/06/22 00:28 Albumin 4.4 g/dL (3.5-5.2) 07/06/22 00:28 Globulin 2.7 g/dL (1.3-4.6) 07/06/22 00:28 Coronavirus 229E (PCR) Not detected (NOT DETECT) 07/06/22 00:35 SARS-CoV-2 (PCR) Detected (NOT DETECT) A 07/06/22 00:35 EKG Data EKG 1: I personally reviewed and interpreted this EKG as follows: EKG Interpretation Date: 07/06/22 EKG interpretation time: 00:27 Interpretation: nsr hr [address] or t wave abnormalities qrs 86q tc 387 Discharge Plan Discharge Patient Disposition: Admitted As Inpatient Clinical Impression: COVID-19, Elevated troponin Condition: Stable Coding Level of Care Code ED Senior Telecommunications Specialist for Chg Fwd Exam Comprehensive
[2022-07-06 00:34] LABS: Basophils # 0.1 10^3/uL (0.0-0.1); Basophils % 0.8 %; Eosinophils # 0.3 10^3/uL (0.0-0.8); Eosinophils % 4.7 %; Hematocrit 40.6 % (37.0-47.0); Hemoglobin 13.1 g/dL (11.5-15.3); Lymphocytes # 2.1 10^3/uL (0.8-4.8); Lymphocytes % 36.1 %; Mean Corpuscular HGB Conc 32.3 g/dL (30.0-36.0); Mean Corpuscular Hemoglobin 31.8 pg (28.0-34.0); Mean Corpuscular Volume 98.5 fl (81-99); Mean Platelet Volume 10.2 fL (7.4-10.4); Monocytes # 0.3 10^3/uL (0.2-0.9); Monocytes % 5.8 %; Neutrophils # 3.09 10^3/uL (1.8-7.7); Neutrophils % 52.4 %; Nucleated Red Blood Cells % 0 %; Platelet Count 203 10^3/cmm (130-400); Red Blood Count 4.12 10^6/uL (4.1-5.3); Red Cell Distribution Width 13.2 % (12.1-15.1); White Blood Count 5.9 10^3/uL (4.0-10.0)
[2022-07-06 00:50] LABS: INR 0.98 (0.8-1.2)
[2022-07-06 00:57] LABS: Alanine Aminotransferase 24 U/L (0-33); Albumin Level 4.4 g/dL (3.5-5.2); Alkaline Phosphatase 121 U/L (35-105); Anion Gap 16.2 (5-19); Aspartate Amino Transferase 39 U/L (0-32); Blood Urea Nitrogen 24 mg/dL (8-23); Calcium 9.8 mg/dL (8.5-10.5); Carbon Dioxide 22 mmol/L (22-29); Chloride 106 mmol/L (98-107); Globulin 2.7 g/dL (1.3-4.6); Glucose 108 mg/dL (65-115); Osmolality Calculated 295 mOsm/kg (285-295); Potassium 4.2 mmol/L (3.5-5.1); Sodium 140 mmol/L (136-145); Total Bilirubin 0.4 mg/dL (0.15-1.2); Total Protein 7.1 g/dL (6.6-8.7)
[2022-07-06 01:08] LABS: NT Pro B Type Natriuretic Pept 6571 pg/mL (0-450)
[2022-07-06 01:21] LABS: Troponin(5th) Baseline 604 ng/L (0-10)
--- NOTE | 2022-07-06 01:24 | CTR_ITS ---
PROCEDURE INFORMATION: Exam: CTA Chest With Contrast Exam date and time: 07/06/2022 1:44 AM Age: 76 years old Clinical indication: Cough and shortness of breath and wheezing; Patient HX: C/O cough with SOB and wheezing. Baseline troponin of 604. TECHNIQUE: Imaging protocol: Computed tomographic angiography of the chest with contrast. 3D rendering (Not supervised by radiologist): MIP and/or 3D reconstructed images were created by the technologist. Radiation optimization: All CT scans at this facility use at least one of these dose optimization techniques: automated exposure control; mA and/or kV adjustment per patient size (includes targeted exams where dose is matched to clinical indication); or iterative reconstruction. Contrast material: OMNI 350; Contrast volume: 73 ml; Contrast route: INTRAVENOUS (IV); COMPARISON: CT chest abd pel w con* 07/12/2021 11:39 AM RADIATION DOSE METRICS: Total DLP (mGy-cm): 267.52 FINDINGS: Pulmonary arteries: No central or segmental filling pulmonary artery filling defects are identified. Aorta: The aorta is normal in course and caliber. Lungs: Emphysematous disease noted. Focal peripheral consolidation in the lateral basal segment of the right lower lobe (series 5, image 44). Pleural spaces: No pneumothorax. No pleural effusion. Heart: Coronary artery calcifications noted. Lymph nodes: The visualized supraclavicular region appears normal. No mediastinal or hilar adenopathy is identified. Bones/joints: Vertebral plana defect again noted at T8. Interval compression deformity at T11 not present on prior exam, with approximately 25% height loss anteriorly. Soft tissues: Unremarkable. CT/CT angio chest PE protcl [id number] IMPRESSION: 1. No pulmonary embolism identified. 2. Emphysematous disease. 3. Small focal area of peripheral consolidation in the right lower lobe may be consistent with atelectasis versus focal mild airspace disease. 4. Interval compression deformity at T11 not present on prior exam, with approximately 25% height loss anteriorly. Correlate with any focal pain in this region.
[2022-07-06] MEDS: enoxaparin 60 mg/0.6 mL Syringe SUBCUT ×2 (01:35→13:31)
[2022-07-06 01:36] LABS: ABG PCO2 31.2 mmHg (35-45); ABG PH Result 7.42 (7.35-7.45); Base Excess ABG -3.6 mmol/L (-2.0-2.0); Blood Gas Allen Test Pos; Blood Gas Operator Identificat glc; Blood Gas Sample Site Radial, left; Blood Gas Sample Type Arterial; HCO3 ABG 19.9 mmol/L (22-26); Oxygen Device NC; PO2 ABG 66.2 mmHg (80.0-100.0)
[2022-07-06] MEDS: iohexol 350 mg/mL 100 mL Btl IV (01:55)
--- NOTE | 2022-07-06 02:25 | ECG_ITS ---
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 Measurements Intervals [place] Rate: 79 P: 59 IA: 156 QRS: 76 QRSD: 87 T: -32 QT: 385 QTc: 442 Interpretive Statements SINUS RHYTHM LEFT VENTRICULAR HYPERTROPHY AND ST-T CHANGE [VOLTAGE CRITERIA PLUS ST/T ABNORMALITY] Compared to ECG 07/06/2022 00:27:29 No significant changes Electronically Signed On 07-07-2022 7:11:36 CDT by Kishan Lozano M.D. [email or web address]
[2022-07-06 02:27] LABS: Adenovirus Not Detected (NOT DETECT); Chlamydia Pneumoniae Not Detected (NOT DETECT); Coronavirus 229E,HKU1,NL63,OC4 Not Detected (NOT DETECT); Human Metapneumovirus Not Detected (NOT DETECT); Human Rhinovirus/Enterovirus Not Detected (NOT DETECT); Influenza A Not Detected (NOT DETECT); Influenza A H1 Not Detected (NOT DETECT); Influenza A H1-2009 Not Detected (NOT DETECT); Influenza A H3 Not Detected (NOT DETECT); Influenza B Not Detected (NOT DETECT); Mycoplasma Pneumoniae Not Detected (NOT DETECT); Parainfluenza Virus Type 1 Not Detected (NOT DETECT); Parainfluenza Virus Type 2 Not Detected (NOT DETECT); Parainfluenza Virus Type 3 Not Detected (NOT DETECT); Parainfluenza Virus Type 4 Not Detected (NOT DETECT); Respiratory Syncytial Virus A Not Detected (NOT DETECT); Respiratory Syncytial Virus B Not Detected (NOT DETECT); SARS-COV-2 Detected (NOT DETECT)
[2022-07-06 02:47] LABS: Troponin 5 2HR 500.4 ng/L (0-10)
[2022-07-06] MEDS: dexamethasone 10 mg/mL INJ 6 MG IVP (03:40)
--- NOTE | 2022-07-06 04:18 | PM.HP ---
Providers/Chief Complaint Admitting Physician: Perry Aguayo Primary Care Provider: Catalino Sanders MD Chief Complaint: Difficulty breathing History of Present Illness Pleasant 76-year-old lady without history of pulmonary disease, former smoker, but states recently quit, has been feeling unwell since about the end of last week, states has been having cough, dyspnea, wheezing, malaise. In ER noted to have new oxygen requirement. With sinus tachycardia. With no PE on CTA, with small focal area of peripheral consolidation in the right lower lobe, possibly atelectasis versus focal airspace disease. Incidentally noted T11 compression deformity. COVID-19 coming back positive. Additionally noted troponin elevation, baseline 604, repeat 500.4, NT proBNP 6571. EKG with LVH and some ST-T changes. He does not have any chest pain. Denies any known prior coronary artery disease or stenting. In ER she received a dose of Solu-Medrol 125 mg, breathing treatment. Started on therapeutic Lovenox. She notes some mild improvement in her symptoms. Would want him to resuscitation, but does not wantIn terms of CODE STATUS repeat unsuccessful or protracted attempts with low hope of recovery. States her son is her power of trust and estates attorney healthcare. Review of Systems Const: Denies: fever(s), chills, body aches or malaise Eyes: Denies: change in vision, eye discomfort or eye redness ENMT: Denies: throat pain, oral sores or ear or mastoid pain Card: Reports: dyspnea on exertion; Denies: chest pain, edema or pre-syncope Resp: Reports: dyspnea and productive cough (clear sputum); Denies: change in phlegm color or hemoptysis GI: Denies: abdominal pain, nausea, vomiting, diarrhea, constipation, hematochezia or melena : Denies: flank pain, urinary frequency or hematuria Musc: Denies: back pain, joint swelling or joint redness Skin/Breast: Denies: rash or new lesions Neuro: Denies: headache(s), numbness in extremities, weakness in extremities, dizziness, confusion or seizure-like activity Endo: Denies: polyuria or polydipsia Elia/Lymph: Denies: easy bleeding or tender lymph nodes All/Imm: Denies: urticaria or tongue swelling Medications/Allergies Home Medications Medication Instructions Recorded Confirmed Last Taken Type acetaminophen 325 mg tablet 325 mg PO QID PRN Pain 05/04/20 05/04/22 02/26/22 History (Tylenol) multivitamin (One Daily 1 tab PO DAILY 05/04/20 05/04/22 04/26/22 History Multivitamin tablet) umeclidinium 62.5 mcg-vilanterol 1 inh inhalation DAILY 30 days #60 05/21/21 05/04/22 04/26/22 Rx 25 mcg/actuation powdr for ea inhalation (Anoro Ellipta) methenamine hippurate 1 gram tablet 1 g PO BID #60 tabs 03/01/22 05/04/22 04/26/22 Rx Super Beets 1 tab PO DAILY 04/26/22 05/04/22 04/26/22 History ascorbic acid (vitamin C) 1,000 mg 1,000 mg PO DAILY 04/26/22 05/04/22 04/26/22 History tablet (Vitamin C) ashwagandha root extract 300 mg 300 mg PO DAILY 04/26/22 05/04/22 04/26/22 History capsule aspirin 81 mg tablet,delayed 81 mg PO DAILY #30 tabs 04/27/22 05/04/22 Unknown Rx release atorvastatin 40 mg tablet 40 mg PO BEDTIME #60 tabs 04/27/22 05/04/22 Unknown Rx Allergies Allergy/AdvReac Type Severity Reaction Status Date / Time meperidine [From Demerol] Allergy Unknown Unknown Verified 05/04/22 11:04 morphine Allergy Unknown Unknown Verified 05/04/22 11:04 PFSH Acute PFSH: Medical History (Updated 07/06/22 @ 04:29 by Perry Aguayo MD) Elevated troponin I level Extrinsic ureteral obstruction Retained ureteral stent Syncope and collapse Urinary incontinence Surgical History H/O arthroscopic knee surgery bilateral H/O oral surgery H/O shoulder surgery H/O total hip arthroplasty right H/O: H/O: hysterectomy History of colon surgery Family History Mother , at age 79 Hypertension Peripheral artery disease Diabetes Father , at age 47 Cancer pancreatic and lung Social History Smoking and tobacco status: current every day smoker cigarettes Packs smoked per day: 0.5 Years cigarettes smoked: 60 [ Other cigarette details: Hx of 1 PPD x 50 Years] Second hand smoke exposure: Yes Smoking risk assessment/counseling performed?: Yes Alcohol intake: never Lives independently: Yes Housing: Apartment Marital status: Legally Current occupational status: retired and disabled History of recent travel: No Current gender identity: Female Vitals/I&O/Wt Last Vital Signs Temp 97.9 F 07/06/22 00:18 Pulse 87 07/06/22 03:52 Resp 17 07/06/22 03:52 BP 135/56 07/06/22 03:52 Pulse Ox 96 07/06/22 03:52 O2 Del Method 07/06/22 02:00 O2 Flow Rate 4 07/06/22 02:00 Weight last 48 hrs Weight 57.153 kg Physical Exam Const: COMMON NORMALS: patient oriented x3 and alert GENERAL APPEARANCE: cooperative ORIENTATION/CONSCIOUSNESS: Yes awake HENMT: COMMON NORMALS: oropharynx normal Neck/C-Spine: COMMON NORMALS: no JVD Resp: COMMON NORMALS: normal respiratory effort and clear to auscultation bilaterally AUSCULTATION: clear to auscultation bilaterally Cardio: COMMON NORMALS: no JVD, regular rhythm, S1 normal heart sound present, S2 normal heart sound present and No murmurs present (Cardio) RHYTHM: regular rhythm HEART SOUNDS: S1 normal heart sound present and S2 normal heart sound present GI: COMMON NORMALS: Normal to inspection, nondistended, normoactive bowel sounds present, Soft to palpation and non-tender PALPATION: Yes Soft to palpation Extremity: COMMON NORMALS: no joint enlargement and no pedal edema Neuro: COMMON NORMALS: patient oriented x3 and moves all extremities SENSORIUM/ORIENTATION: Yes alert Skin: COMMON NORMALS: no rashes or lesions noted GENERAL SKIN EXAM: no rashes or lesions noted Data : 07/06/22 00:28 07/06/22 00:28 A&P Assessment and plan (1) Acute respiratory failure with hypoxia: Secondary to severe COVID-19 pneumonia, possible superimposed right lower lobe bacterial pneumonia, otherwise without leukocytosis or fever. Productive cough but of clear sputum. However, with empirically covered with ceftriaxone, daptomycin. Started on Decadron. Otherwise discussed with her significant troponin elevation, concern for possible cardiomyopathy or NSTEMI. Otherwise possibly unmasked CAD with hypoxia, pneumonia. Concern with other COVID-19 treatments, including aggressive with significant evaluation, with concern for high but still reported cardiac arrest events, similarly personally. Tocilizumab will be concerned regarding superimposed infection. She is okay for now to start with Decadron otherwise monitor symptoms and consider further options depending on how she responds. She did have quite significant wheezing on presentation, he does appear to have significant airway activity. Possibly undiagnosed underlying asthma or other obstructive condition. Benefit from further PFT after recovery from acute illness. Continue breathing treatments, continue steroid. Antitussives as needed. (2) COVID-19: As above. Additional established conditions below. Follow-up D-dimer. Isolation. (3) Elevated troponin: Otherwise discussed with her significant troponin elevation, concern for possible cardiomyopathy or NSTEMI. Otherwise possibly unmasked CAD with hypoxia, pneumonia. Aspirin 325 mg. Continue anticoagulation with Lovenox. Check lipid profile. Beta-amado. Complete troponin EKG series. Assess TTE. Will benefit from cardiology assessment regarding further evaluation given level of elevation and risk factors of CAD, consideration of coronary angiography. Plan Smoking addiction: States recently stopped smoking. Continue to support cessation. Mild transaminitis: COVID-related. Follow-up liver parameters. Appears to have possible CKD: Follow-up outpatient Please review and reorder home medications once they are confirmed. Attestations Medical Necessity Statement*: Admission of over 2 midnights is anticipated versus management of acute respiratory failure with hypoxia with severe COVID-19, troponin ovation with possible NSTEMI. Coding Level of Care Code Acute Mechanical Artist for Isi Calhoun Diagnoses Acute respiratory failure with hypoxia J96.01 COVID-19 U07.1 Elevated troponin R77.8
--- NOTE | 2022-07-06 04:19 | USCV_ITS ---
Denia Gerardo Age: 76 Gender: F : 1945 Exam Date: 07/06/2022 10:29 Ordering Phys: Perry Aguayo MD Technologist: EVELIA Exam Location: [facility] [place] Indication: NSTEMI BP: 135 / 56 HR: 96 Rhythm: Atrial fibrillation Technical Quality: Adequate MEASUREMENTS (Male / Female) Normal Values 2D ECHO LVOT Diameter 2.0 cm LV Ejection Fraction MOD 2C 46.2 % LV Ejection Fraction 2C AL 47.5 % LA Diameter 3.6 cm LA Width 3.6 cm LA Height 4.4 cm RA Width 3.1 cm RA Height 3.9 cm Aorta at Sinotubular Diameter 2.5 cm IVC Diameter 1.8 cm M-MODE Aortic Annulus Diameter 2.8 cm LA Ao Ratio MM 1.3 MV E Point Septal Separation 1.3 cm DOPPLER AV Peak Velocity 133.7 cm/s LVOT Peak Velocity 105.0 cm/s AV Area Cont Eq vti 2.3 cm squared AV Area Cont Eq pk 2.4 cm squared MV Peak Velocity 151.0 cm/s MV Area PHT 5.0 cm squared Mitral E to A Ratio 0.8 MV E' Velocity 59.5 cm/s Mitral E to MV E' Ratio 11.7 Mitral E to LV E' Lateral Ratio 14.1 Mitral E to LV E' Septal Ratio 10.0 TR Peak Velocity 250.0 cm/s TR Peak Gradient 25.0 mmHg TR Mean Velocity 179.1 cm/s TR Mean Gradient 14.6 mmHg TR Velocity Time Integral 62.7 cm TV Peak E Velocity 62.0 cm/s Right Atrial Pressure 3.0 mmHg Pulmonary Artery Systolic Pressu 28.0 mmHg PV Peak Velocity 95.0 cm/s RV Acceleration Time 0.2 s RV Ejection Time 0.3 s RV AcT/ET 0.5 FINDINGS Left Ventricle Normal left ventricular cavity size. Mildly decreased left ventricular systolic function. Left ventricular ejection fraction is estimated at 45%. There is hypokinesis of inferior and septal quinn. Grade I diastolic dysfunction (abnormal relaxation filling pattern), normal to mildly elevated filling pressures. Right Ventricle Normal right ventricular size and systolic function. Right ventricular systolic pressure 28 mmHg. Right Atrium Normal right atrial size. Left Atrium Upper normal left atrial size. Mitral Valve Mild mitral annular calcification. Mildly thickened mitral valve. No mitral valve stenosis. Mild to moderate mitral valve regurgitation. Aortic Valve Aortic valve not well visualized. Probably trileaflet aortic valve. No aortic valve stenosis. No aortic valve regurgitation. Tricuspid Valve Structurally normal tricuspid valve. No tricuspid valve stenosis. Mild tricuspid valve regurgitation. Pulmonic Valve Pulmonic valve not well visualized. No pulmonary valve stenosis. Trace pulmonary valve regurgitation. Pericardium No pericardial effusion. Aorta Normal size aortic root and proximal ascending aorta. IVC Normal IVC dimension with >50% respiratory change of the inferior vena cava. CONCLUSIONS 1. Normal left ventricular cavity size. Mildly decreased left ventricular systolic function. Left ventricular ejection fraction is estimated at 45%. There is hypokinesis of inferior and septal quinn. Grade I diastolic dysfunction (abnormal relaxation filling pattern), normal to mildly elevated filling pressures. 2. Normal right ventricular size and systolic function. 3. Mild to moderate mitral valve regurgitation. 4. Pulmonary artery pressure estimated at 28 mmHg. 5. When compared to previous echocardiogram dated , left ventricular systolic function seems to have decreased and there is regional wall motion abnormality now. Meera Buckley MD (Electronically Signed) Final Date: 06 July 2022 17:18 S
[2022-07-06] MEDS: aspirin 325 mg Tablet PO (04:41)
[2022-07-06] MEDS: cefTRIAXone 1,000 MG in sodium chloride 0.9% (plus) 50 ML 100 MG IV (04:42)
[2022-07-06] MEDS: azithromycin 500 MG in sodium chloride 0.9% 250 ML 250 MG IV (05:16)
--- NOTE | 2022-07-06 06:33 | ECG_ITS ---
[facility] Test Date: 2022-07-06 Pat Name: Denia Gerardo Department: Room: 263 Gender: Female Apple Checker: : 1945 Requested By: Brit Leary Order Number: [id number] Cathleen MD: Kishan Lozano M.D. Measurements Intervals [place] Rate: 93 P: 18 [place]: 176 QRS: 60 QRSD: 89 T: -35 QT: 406 QTc: 507 Interpretive Statements SINUS RHYTHM LEFT VENTRICULAR HYPERTROPHY AND ST-T CHANGE [VOLTAGE CRITERIA PLUS ST/T ABNORMALITY] Compared to ECG 07/06/2022 01:30:17 No significant changes Electronically Signed On 07-07-2022 7:12:13 CDT by Kishan Lozano M.D. [id number]
[2022-07-06 06:57] LABS: Troponin 5 6HR 473.4 ng/L (0-10)
[2022-07-06] MEDS: ipratropium-albuterol 3 mL Neb INHALATION ×3 (08:46→20:58)
[2022-07-06] MEDS: pantoprazole DR 40 mg Tablet PO (09:59)
[2022-07-06] MEDS: metoprolol tartrate 25 mg Tablet PO ×2 (09:59→20:40)
--- NOTE | 2022-07-06 11:34 | PM.MISC ---
Miscellaneous Note Note: seen this am. saturating 95% on room air patient appears slightly anxious cta b/l, mild ronchi at bases management as per HnP Pt considering being DNR/DNI but she would like to discuss with son first.
--- NOTE | 2022-07-06 17:19 | PM.CONSULT ---
Providers/Reason For Consult Consulting Physician/Specialty*: Dr. Buckley, Cardiology Reason for Consult*: NSTEMI, COVID+ Attending Physician: Saima Ozuna MD Primary Care Provider: Catalino Sanders MD History of Present Illness History of Present Illness Denia Gerardo is a 76 year old female with PMHx of PAD s/o right sided femoro-popliteal bypass several years back, h/o TIA, recent stroke (04/2022- MRI: Subacute lacunar infarct RIGHT wolfe radiata), HLD, arthritis uses a walker, emphysema and former smoker. Denies any known prior coronary artery disease or stenting. She has been feeling unwell for past 2 weeks. She has been having cough, dyspnea, wheezing, malaise.?CTA with no PE with small focal area of peripheral consolidation in the right lower lobe, possibly atelectasis versus focal airspace disease.?+ COVID-19. She has been vaccinated and had 1st booster. She was noted to be troponin elevation, baseline 604, repeat 2 hr 500.4 and 6 hr 473, NT proBNP 6571.? EKG with sinus rhythm and ST-T changes in inferolateral leads new as compared to EKG in 04/2022.? She does not have any chest pain.? Review of Systems Const: Denies: fever(s), chills, body aches or malaise Eyes: Denies: change in vision, eye discomfort or eye redness ENMT: Denies: throat pain, oral sores or ear or mastoid pain Card: Reports: dyspnea on exertion; Denies: chest pain, edema or pre-syncope Resp: Reports: dyspnea and productive cough (clear sputum); Denies: change in phlegm color or hemoptysis GI: Denies: abdominal pain, nausea, vomiting, diarrhea, constipation, hematochezia or melena : Denies: flank pain, urinary frequency or hematuria Musc: Denies: back pain, joint swelling or joint redness Skin/Breast: Denies: rash or new lesions Neuro: Denies: headache(s), numbness in extremities, weakness in extremities, dizziness, confusion or seizure-like activity Endo: Denies: polyuria or polydipsia Elia/Lymph: Denies: easy bleeding or tender lymph nodes All/Imm: Denies: urticaria or tongue swelling Medications/Allergies Home Medications Medication Instructions Recorded Confirmed Last Taken Type acetaminophen 325 mg tablet 325 mg PO QID PRN Pain 05/04/20 07/06/22 02/26/22 History (Tylenol) multivitamin (One Daily 1 tab PO DAILY 05/04/20 07/06/22 04/26/22 History Multivitamin tablet) umeclidinium 62.5 mcg-vilanterol 1 inh inhalation DAILY 30 days #60 05/21/21 07/06/22 04/26/22 Rx 25 mcg/actuation powdr for ea inhalation (Anoro Ellipta) methenamine hippurate 1 gram tablet 1 g PO BID #60 tabs 03/01/22 07/06/22 04/26/22 Rx Super Beets 1 tab PO DAILY 04/26/22 07/06/22 04/26/22 History ascorbic acid (vitamin C) 1,000 mg 1,000 mg PO DAILY 04/26/22 07/06/22 04/26/22 History tablet (Vitamin C) ashwagandha root extract 300 mg 300 mg PO DAILY 04/26/22 07/06/22 04/26/22 History capsule aspirin 81 mg tablet,delayed 81 mg PO DAILY #30 tabs 04/27/22 07/06/22 Unknown Rx release atorvastatin 40 mg tablet 40 mg PO BEDTIME #60 tabs 04/27/22 07/06/22 Unknown Rx nicotine 14 mg/24 hr daily See Rx Instructions .Route .COMPLEX 07/06/22 07/06/22 Unknown History transdermal patch nicotine 7 mg/24 hr daily See Rx Instructions .Route .COMPLEX 07/06/22 07/06/22 Unknown History transdermal patch Allergies Allergy/AdvReac Type Severity Reaction Status Date / Time meperidine [From Demerol] Allergy Unknown Unknown Verified 07/06/22 08:45 morphine Allergy Unknown Unknown Verified 07/06/22 08:45 Current Medications Generic Name Dose Route Start Last Admin Trade Name Freq PRN Reason Stop Dose Admin Albuterol/Ipratropium 3 ml 07/06/22 08:00 07/06/22 14:26 Ipratropium-Albuterol 3 Ml Neb INHALATION 3 ml Q6H.RESP KORTNEY Administration Aspirin 325 mg 07/06/22 04:20 07/06/22 04:41 Aspirin 325 Mg Tablet PO 325 mg DAILY KORTNEY Administration Enoxaparin Sodium 60 mg 07/06/22 13:30 07/06/22 13:31 Enoxaparin 60 Mg/0.6 Ml Syringe SUBCUT 60 mg Q12H KORTNEY Administration Ceftriaxone Sodium 1,000 mg/ 50 mls @ 100 mls/hr 07/06/22 04:30 07/06/22 05:40 Sodium Chloride IV Infused Q24H KORTNEY Infusion Protocol Azithromycin 500 mg/ Sodium 250 mls @ 250 mls/hr 07/06/22 04:30 07/06/22 06:35 Chloride IV Infused Q24H KORTNEY Infusion Protocol Metoprolol Tartrate 25 mg 07/06/22 09:00 07/06/22 09:59 Metoprolol Tartrate 25 Mg Tablet PO 25 mg BID@0900,2100 KORTNEY Administration Non-Formulary Medication 1 gm 07/06/22 09:00 07/06/22 10:00 Methenamine Hippurate PO Not Given BID KORTNEY Pantoprazole Sodium 40 mg 07/06/22 09:00 07/06/22 09:[address] 40 Mg Tablet PO 40 mg DAILY KORTNEY Administration PFSH Acute PFSH: Medical History (Updated 07/06/22 @ 19:25 by Meera Buckley MD) Elevated troponin I level Extrinsic ureteral obstruction NSTEMI (non-ST elevated myocardial infarction) Retained ureteral stent Syncope and collapse Urinary incontinence Surgical History H/O arthroscopic knee surgery bilateral H/O oral surgery H/O shoulder surgery H/O total hip arthroplasty right H/O: H/O: hysterectomy History of colon surgery Family History Mother , at age 79 Hypertension Peripheral artery disease Diabetes Father , at age 47 Cancer pancreatic and lung Social History Smoking and tobacco status: current every day smoker cigarettes Packs smoked per day: 0.5 Years cigarettes smoked: 60 [ Other cigarette details: Hx of 1 PPD x 50 Years] Second hand smoke exposure: Yes Smoking risk assessment/counseling performed?: Yes Alcohol intake: never Lives independently: Yes Housing: Apartment Marital status: Legally Current occupational status: retired and disabled History of recent travel: No Current gender identity: Female Vitals/I&O/Wt Last Vital Signs Temp 97.9 F 07/06/22 16:00 Pulse 83 07/06/22 16:00 Resp 16 07/06/22 16:00 BP 112/61 07/06/22 16:00 Pulse Ox 97 07/06/22 16:00 O2 Del Method 07/06/22 16:00 O2 Flow Rate 2 07/06/22 16:00 07/06/22 07/06/22 07/06/22 06:59 14:59 22:59 Intake Total 420 / 420 480 / 480 Balance 420 / 420 480 / 480 Weight last 48 hrs Weight 126 lb Physical Exam Narrative: GENERAL: Averagely built and averagely nourished, coughing through out the exam HEENT: Extraocular movement intact. No pallor or icterus. NECK: central trachea, No JVD, No carotid bruit. CARDIOVASCULAR SYSTEM: S1-S2 regular. No murmur rubs or gallops. RESPIRATORY SYSTEM: Chest clear to auscultation. coarse rales+, No wheezes or rubs heard. No use of accessory muscles. ABDOMEN: Soft, nontender and nondistended. Normal bowel sounds present. EXTREMITIES: No cyanosis or edema. No signs of chronic venous insufficiency. FOOT AND ANKLE SURGEON: Patient is alert oriented ?3. No focal neurological deficits. Data : 07/06/22 00:28 07/06/22 00:28 Other data: Troponin T 604--> 500--> 473 NT Pro BNP 6571 TTE (07/06/22) CONCLUSIONS ?1. Normal left ventricular cavity size. Mildly decreased left ?ventricular systolic function. Left ventricular ejection ?fraction is estimated at 45%.? There is hypokinesis of inferior ?and septal quinn.? Grade I diastolic dysfunction (abnormal ?relaxation filling pattern), normal to mildly elevated filling ?pressures. ?2. Normal right ventricular size and systolic function. ?3. Mild to moderate mitral valve regurgitation. ?4.? Pulmonary artery pressure estimated at 28 mmHg. ?5.? When compared to previous echocardiogram dated , ?left ventricular systolic function seems to have decreased and ?there is regional wall motion abnormality now. Chest CTA (07/05/22) IMPRESSION: 1. No pulmonary embolism identified. 2. Emphysematous disease. 3. Small focal area of peripheral consolidation in the right lower lobe may be consistent with atelectasis versus focal mild airspace disease. 4. Interval compression deformity at T11 not present on prior exam, with approximately 25% height loss anteriorly. Correlate with any focal pain in this region. CXR (07/05/22) IMPRESSION: 1. Emphysematous changes. 2. Patchy bibasal ground-glass airspace atelectasis versus infiltrates. A&P Assessment and plan (1) Acute respiratory failure with hypoxia: (2) COVID-19: (3) NSTEMI (non-ST elevated myocardial infarction): continue ASA, statin, metoprolol and therapeutic lovenox x 48 hr -plavix 300 mg PO x 1 and then continue plavix 75 mg daily -Plan for medical management for now. -will plan for [facility] possibly outpatient once she recovers from COVID-19 (4) Emphysema lung: Plan PAD H/o CVA Hyperlipidemia Former smoker Consult Attestations Time Spent in Patient Care: 16 - 35 minutes Coding Level of Care Code Acute Primer Charger for Isi Calhoun Diagnoses Acute respiratory failure with hypoxia J96.01 COVID-19 U07.1 NSTEMI (non-ST elevated myocardial infarction) I21.4 Emphysema lung J43.9
[2022-07-06] MEDS: atorvastatin 40 mg Tablet PO (20:40)
[2022-07-06] MEDS: clopidogrel 300 mg Tablet PO (21:33)
[2022-07-07] VITALS (12 sets, daily range): BP systolic 111–188; BP diastolic 64–118; PULSE 78–113; RESP 14–22; TEMP 36.3–36.8; O2SAT 93–99
[2022-07-07] MEDS: enoxaparin 60 mg/0.6 mL Syringe SUBCUT ×2 (01:46→13:53)
[2022-07-07] MEDS: ipratropium-albuterol 3 mL Neb INHALATION ×4 (02:56→20:58)
[2022-07-07] MEDS: cefTRIAXone 1,000 MG in sodium chloride 0.9% (plus) 50 ML 100 MG IV (04:28)
[2022-07-07] MEDS: azithromycin 500 MG in sodium chloride 0.9% 250 ML 250 MG IV (04:28)
[2022-07-07 06:10] LABS: Basophils % 0.1 %; Hematocrit 34.8 % (37.0-47.0); Hemoglobin 11.4 g/dL (11.5-15.3); Lymphocytes % 11.1 %; Mean Corpuscular HGB Conc 32.8 g/dL (30.0-36.0); Mean Corpuscular Hemoglobin 31.8 pg (28.0-34.0); Mean Corpuscular Volume 97.2 fl (81-99); Mean Platelet Volume 10.3 fL (7.4-10.4); Monocytes # 0.6 10^3/uL (0.2-0.9); Monocytes % 7.1 %; Neutrophils # 6.91 10^3/uL (1.8-7.7); Nucleated Red Blood Cells % 0 %; Platelet Count 229 10^3/cmm (130-400); Red Blood Count 3.58 10^6/uL (4.1-5.3); Red Cell Distribution Width 13.4 % (12.1-15.1); White Blood Count 8.5 10^3/uL (4.0-10.0)
[2022-07-07 06:24] LABS: D Dimer 1.44 ug/mIFEU (0-0.59)
[2022-07-07 06:32] LABS: Alanine Aminotransferase 58 U/L (0-33); Albumin Level 3.9 g/dL (3.5-5.2); Alkaline Phosphatase 121 U/L (35-105); Anion Gap 19.5 (5-19); Aspartate Amino Transferase 81 U/L (0-32); Blood Urea Nitrogen 33 mg/dL (8-23); Calcium 9.2 mg/dL (8.5-10.5); Carbon Dioxide 16 mmol/L (22-29); Chloride 105 mmol/L (98-107); Chol HDL Ratio 2.42 mg/dL (0.0-4.40); Cholesterol 160 mg/dL (0-200); Globulin 2.8 g/dL (1.3-4.6); Glucose 130 mg/dL (65-115); HDL Cholesterol 66 mg/dL (60-100); LDL Cholesterol Calculated 69 mg/dL (50-129); LDL HDL Ratio 1.05 RATIO (0.00-3.22); Osmolality Calculated 291 mOsm/kg (285-295); Potassium 4.5 mmol/L (3.5-5.1); Sodium 136 mmol/L (136-145); Total Bilirubin 0.3 mg/dL (0.15-1.2); Total Protein 6.7 g/dL (6.6-8.7); Triglycerides 123 mg/dL (0-150)
[2022-07-07] MEDS: metoprolol tartrate 25 mg Tablet PO ×2 (09:09→20:36)
[2022-07-07] MEDS: clopidogrel 75 mg Tablet PO (09:09)
[2022-07-07] MEDS: pantoprazole DR 40 mg Tablet PO (09:09)
[2022-07-07] MEDS: aspirin 81 mg EC Tablet PO (09:09)
[2022-07-07] MEDS: dexamethasone 10 mg/mL INJ 6 MG IVP (09:10)
--- NOTE | 2022-07-07 09:26 | PM.PN ---
Subjective Subjective: Patient denies any chest pains. Medications: Reviewed: Yes Vitals/I&O/Wt Last Vital Signs Temp 97.9 F 07/07/22 07:58 Pulse 96 07/07/22 08:20 Resp 16 07/07/22 08:05 BP 111/64 07/07/22 07:58 Pulse Ox 93 07/07/22 08:05 O2 Del Method 07/07/22 08:05 O2 Flow Rate 2 07/07/22 08:05 07/06/22 07/07/22 07/07/22 22:59 06:59 14:59 Intake Total 240 / 720 300 / 1020 Balance 240 / 720 300 / 1020 Weight last 48 hrs Weight 126 lb Physical Exam Narrative: GENERAL: Averagely built and averagely nourished, coughing through out the exam HEENT: Extraocular movement intact. No pallor or icterus. NECK: central trachea, No JVD, No carotid bruit. CARDIOVASCULAR SYSTEM: S1-S2 regular. No murmur rubs or gallops. RESPIRATORY SYSTEM: Chest clear to auscultation. coarse rales+, No wheezes or rubs heard. No use of accessory muscles. ABDOMEN: Soft, nontender and nondistended. Normal bowel sounds present. EXTREMITIES: No cyanosis or edema. No signs of chronic venous insufficiency. MEDICAL ECONOMICS CONSULTANT: Patient is alert oriented ?3. No focal neurological deficits. Data : 07/07/22 05:57 07/07/22 05:57 A&P Assessment and plan (1) Acute respiratory failure with hypoxia: (2) COVID-19: (3) NSTEMI (non-ST elevated myocardial infarction): continue ASA, statin, metoprolol and therapeutic lovenox at least for 48 hr -plavix 300 mg PO x 1 and then continue plavix 75 mg daily -Plan for medical management for now. 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
--- NOTE | 2022-07-07 10:48 | PC.CHAP ---
Pastoral Care Encounter/Spiritual Assessment Type of Contact [] Declined oil operator visit [] Patient/Family/Request visit [] Outpatient visit [] Follow-up visit [] Physician referral [] Code/Alert [] Routine visit [] Staff referral [] Actively dying [] Patient sleeping [] Family support [] [] Out of room [] Palliative care [] [] Receiving care in room [] Pre-surgical visit [] Trauma [] Long length of stay [] ICU visit [x] Other: Isolation Relational/Emotional Strength [] Patient feels connected with others/family/visitors/staff [] Distress [] Loneliness/isolation [] Abandonment Spirituality of Patient [] Person of Ember [] Attends Presybeterian of their Ember [] Believes in Prayer [] Reads Bible or Nondenominational materials [] There are Spiritual issues to be addressed Rejected Items Clerk Interventions [] Prayer [] Active listening [] Non-anxious presence [] Spiritual/emotional support [] Crisis/trauma care [] Spiritual counseling [] Bereavement support [] Provided bereavement packet [] Provided Bible/devotional materials [] Provided toy/stuffed animal, coloring book to patient or family member [] Provided Communion [] Anointing/Stuart [] Salvation [] Completed spiritual assessment [] Other: Impact on Illness or Injury [] Angry [] Fearful [] Anxious [] Often cries [] Exhaustion [] Unable to work [] Unable to attend alevism [] Unable to walk/stand [] Unable to read [] Unable to drive [] Unable to eat/drink [] Unable to sleep [] Unable to be with family [] Patient intubated [] Other: Summary Isolation Time spent with patient 5 mins
[2022-07-07] MEDS: ascorbic acid 500 mg Tablet 1000 MG PO (11:15)
[2022-07-07] MEDS: NON-FORMULARY MEDICATION (Methenamine Hippurate 1 gram tablet) 1 EACH PO ×2 (11:15→17:23)
--- NOTE | 2022-07-07 11:16 | PM.PN ---
Subjective Subjective: Seen today. Patient reportedly feels slightly better. Vitals/I&O/Wt Last Vital Signs Temp 97.9 F 07/07/22 07:58 Pulse 96 07/07/22 08:20 Resp 16 07/07/22 08:05 BP 111/64 07/07/22 07:58 Pulse Ox 93 07/07/22 08:05 O2 Del Method 07/07/22 08:05 O2 Flow Rate 2 07/07/22 08:05 07/06/22 07/07/22 07/07/22 22:59 06:59 14:59 Intake Total 240 / 720 300 / 1020 120 / 120 Output Total 200 / 200 Balance 240 / 720 300 / 1020 -80 / -80 Weight last 48 hrs Weight 57.153 kg Physical Exam Const: COMMON NORMALS: patient oriented x3 and alert GENERAL APPEARANCE: cooperative ORIENTATION/CONSCIOUSNESS: Yes awake HENMT: COMMON NORMALS: oropharynx normal Neck/C-Spine: COMMON NORMALS: no JVD Resp: COMMON NORMALS: normal respiratory effort (mild ronchi at bases) and clear to auscultation bilaterally AUSCULTATION: clear to auscultation bilaterally Cardio: COMMON NORMALS: no JVD, regular rhythm, S1 normal heart sound present, S2 normal heart sound present and No murmurs present (Cardio) RHYTHM: regular rhythm HEART SOUNDS: S1 normal heart sound present and S2 normal heart sound present GI: COMMON NORMALS: Normal to inspection, nondistended, normoactive bowel sounds present, Soft to palpation and non-tender PALPATION: Yes Soft to palpation Extremity: COMMON NORMALS: no joint enlargement and no pedal edema Neuro: COMMON NORMALS: patient oriented x3 and moves all extremities SENSORIUM/ORIENTATION: Yes alert Skin: COMMON NORMALS: no rashes or lesions noted GENERAL SKIN EXAM: no rashes or lesions noted Data : 07/07/22 05:57 07/07/22 05:57 A&P Assessment and plan (1) Acute respiratory failure with hypoxia: (2) COVID-19: (3) Elevated troponin: Plan COVID 19 PNA NSTEMI Troponin Elevation New onset systolic heart failure Smoking addiction: States recently stopped smoking. Continue to support cessation. Mild transaminitis: COVID-related. Follow-up liver parameters. Appears to have possible CKD: Follow-up outpatient - Continue aspirin, Plavix, atorvastatin. Echo results reviewed. Cardiology on board. Patient will require left heart cath once COVID-19 has resolved. Completed 48 hours of therapeutic Lovenox. ? Continue dexamethasone ? Continue to wean oxygen Continue DuoNebs ? Repeat chest x-ray in a.m. -Continue empiric coverage with antibiotics Please review and reorder home medications once they are confirmed. Attestations Medical Necessity Statement*: NSTEMI. Continue hospital stay to manage NSTEMI AND COVID 19 pneumonia Coding Level of Care Code Acute Lay Out Machine Operator for [facility] Unique Diagnoses Acute respiratory failure with hypoxia J96.01 COVID-19 U07.1 Elevated troponin R77.8
[2022-07-07] MEDS: atorvastatin 40 mg Tablet PO (20:36)
[2022-07-07 21:37] LABS: Glucose Point of Care 149 mg/dL (70-110)
[2022-07-08] VITALS (15 sets, daily range): BP systolic 104–158; BP diastolic 54–89; PULSE 71–110; RESP 15–25; TEMP 36.3–36.8; O2SAT 95–99
[2022-07-08] MEDS: enoxaparin 60 mg/0.6 mL Syringe SUBCUT ×2 (00:34→14:02)
[2022-07-08] MEDS: ipratropium-albuterol 3 mL Neb INHALATION ×4 (03:12→20:52)
[2022-07-08] MEDS: azithromycin 500 MG in sodium chloride 0.9% 250 ML 250 MG IV (03:40)
--- NOTE | 2022-07-08 03:53 | PC.NURSE ---
Patient c/o shortness of breath not improved after breathing treatment. Patient has crackles via auscultation. Dr. Aguayo notified. Supa ordered.
[2022-07-08] MEDS: FUROsemide 10 mg/mL SDV 2mL 20 MG IVP (04:57)
[2022-07-08] MEDS: cefTRIAXone 1,000 MG in sodium chloride 0.9% (plus) 50 ML 100 MG IV (05:19)
[2022-07-08 06:20] LABS: Basophils % 0.1 %; Hematocrit 34.9 % (37.0-47.0); Hemoglobin 11.2 g/dL (11.5-15.3); Lymphocytes % 11.2 %; Mean Corpuscular HGB Conc 32.1 g/dL (30.0-36.0); Mean Corpuscular Hemoglobin 31.5 pg (28.0-34.0); Mean Corpuscular Volume 98.3 fl (81-99); Mean Platelet Volume 10.5 fL (7.4-10.4); Monocytes # 0.6 10^3/uL (0.2-0.9); Monocytes % 7.3 %; Neutrophils # 6.97 10^3/uL (1.8-7.7); Neutrophils % 80.6 %; Nucleated Red Blood Cells % 0 %; Platelet Count 222 10^3/cmm (130-400); Red Blood Count 3.55 10^6/uL (4.1-5.3); Red Cell Distribution Width 13.5 % (12.1-15.1); White Blood Count 8.7 10^3/uL (4.0-10.0)
[2022-07-08 06:40] LABS: Alanine Aminotransferase 72 U/L (0-33); Alkaline Phosphatase 118 U/L (35-105); Aspartate Amino Transferase 44 U/L (0-32); Blood Urea Nitrogen 35 mg/dL (8-23); Calcium 9.4 mg/dL (8.5-10.5); Carbon Dioxide 18 mmol/L (22-29); Chloride 105 mmol/L (98-107); D Dimer 1.27 ug/mIFEU (0-0.59); Globulin 2.9 g/dL (1.3-4.6); Glucose 101 mg/dL (65-115); Osmolality Calculated 294 mOsm/kg (285-295); Sodium 138 mmol/L (136-145); Total Bilirubin 0.3 mg/dL (0.15-1.2); Total Protein 6.9 g/dL (6.6-8.7)
--- NOTE | 2022-07-08 06:50 | PC.NURSE ---
Bedside Report dorothy Huerta RN at this time
[2022-07-08] MEDS: dexamethasone 10 mg/mL INJ 6 MG IVP (09:10)
[2022-07-08] MEDS: NON-FORMULARY MEDICATION (Methenamine Hippurate 1 gram tablet) 1 EACH PO ×2 (09:10→17:19)
[2022-07-08] MEDS: clopidogrel 75 mg Tablet PO (09:11)
[2022-07-08] MEDS: aspirin 81 mg EC Tablet PO (09:11)
[2022-07-08] MEDS: pantoprazole DR 40 mg Tablet PO (09:11)
[2022-07-08] MEDS: metoprolol tartrate 25 mg Tablet PO ×2 (09:22→20:35)
--- NOTE | 2022-07-08 13:38 | PM.PN ---
Subjective Subjective: seen this AM. pt reports being slightly short of breath. no acute events overnight. Vitals/I&O/Wt Last Vital Signs Temp 97.8 F 07/08/22 12:00 Pulse 85 07/08/22 12:00 Resp 19 H 07/08/22 12:00 BP 121/61 07/08/22 12:00 Pulse Ox 99 07/08/22 12:00 O2 Del Method 07/08/22 12:00 O2 Flow Rate 2 07/08/22 12:00 07/07/22 07/08/22 07/08/22 22:59 06:59 14:59 Intake Total 900 / 1140 240 / 240 Balance 900 / 940 240 / 240 Physical Exam Const: COMMON NORMALS: patient oriented x3 and alert GENERAL APPEARANCE: cooperative ORIENTATION/CONSCIOUSNESS: Yes awake HENMT: COMMON NORMALS: oropharynx normal Neck/C-Spine: COMMON NORMALS: no JVD Resp: COMMON NORMALS: normal respiratory effort (mild ronchi at bases) and clear to auscultation bilaterally AUSCULTATION: clear to auscultation bilaterally Cardio: COMMON NORMALS: no JVD, regular rhythm, S1 normal heart sound present, S2 normal heart sound present and No murmurs present (Cardio) RHYTHM: regular rhythm HEART SOUNDS: S1 normal heart sound present and S2 normal heart sound present GI: COMMON NORMALS: Normal to inspection, nondistended, normoactive bowel sounds present, Soft to palpation and non-tender PALPATION: Yes Soft to palpation Extremity: COMMON NORMALS: no joint enlargement and no pedal edema Neuro: COMMON NORMALS: patient oriented x3 and moves all extremities SENSORIUM/ORIENTATION: Yes alert Skin: COMMON NORMALS: no rashes or lesions noted GENERAL SKIN EXAM: no rashes or lesions noted Data : 07/08/22 06:03 07/08/22 06:03 A&P Assessment and plan (1) Acute respiratory failure with hypoxia: (2) COVID-19: (3) Elevated troponin: Plan COVID 19 PNA NSTEMI Troponin Elevation New onset systolic heart failure Smoking addiction: States recently stopped smoking. Continue to support cessation. Mild transaminitis: COVID-related. Follow-up liver parameters. Appears to have possible CKD: Follow-up outpatient - Continue aspirin, Plavix, atorvastatin. Echo results reviewed. Cardiology on board. Patient will require left heart cath once COVID-19 has resolved. Completed 48 hours of therapeutic Lovenox. Will an additional 24 hours of therapeutic lovenox as per cardio recs. ? Continue dexamethasone ? Continue to wean oxygen Continue DuoNebs ? Repeat chest x-ray in a.m. -Continue empiric coverage with antibiotics - Lasix IV to be given x1 today. Plan for possible dc in AM to f/u as outpatient with cardiology for [facility] scheduling Full COde Attestations Medical Necessity Statement*: NSTEMI. Continue hospital stay to manage NSTEMI AND COVID 19 pneumonia Coding Level of Care Code Acute Trolley Car Overhauler for [facility] Fwd Diagnoses Acute respiratory failure with hypoxia J96.01 COVID-19 U07.1 Elevated troponin R77.8
[2022-07-08] MEDS: FUROsemide 10 mg/mL SDV 4mL 40 MG IVP (14:02)
[2022-07-08] MEDS: atorvastatin 40 mg Tablet PO (20:38)
--- NOTE | 2022-07-08 22:11 | P.PN_ITS ---
Subjective Subjective: complains of cough productive of greenish sputum Medications: Reviewed: Yes Vitals/I&O/Wt Last Vital Signs Temp 97.7 F 07/08/22 20:00 Pulse 79 07/08/22 20:59 Resp 15 07/08/22 20:53 BP 104/62 07/08/22 20:00 Pulse Ox 97 07/08/22 20:53 O2 Del Method 07/08/22 20:53 O2 Flow Rate 2 07/08/22 20:53 07/08/22 07/08/22 07/08/22 06:59 14:59 22:59 Intake Total 900 / 1140 240 / 240 Balance 900 / 940 240 / 240 Physical Exam Narrative: GENERAL: Averagely built and averagely nourished, coughing through out the exam HEENT: Extraocular movement intact. No pallor or icterus. NECK: central trachea, No JVD, No carotid bruit. CARDIOVASCULAR SYSTEM: S1-S2 regular. No murmur rubs or gallops. RESPIRATORY SYSTEM: Chest clear to auscultation. occasional rales+, No wheezes or rubs heard. No use of accessory muscles. ABDOMEN: Soft, nontender and nondistended. Normal bowel sounds present. EXTREMITIES: No cyanosis or edema. No signs of chronic venous insufficiency. CUSTOMER CARE MANAGER: Patient is alert oriented ?3. No focal neurological deficits. Data : 07/09/22 03:45 07/09/22 03:45 A&P Assessment and plan (1) Acute respiratory failure with hypoxia: (2) COVID-19: (3) NSTEMI (non-ST elevated myocardial infarction): continue ASA, statin, metoprolol and therapeutic lovenox at least for 48 hr -plavix 300 mg PO x 1 and then continue plavix 75 mg daily -Plan for medical management for now. 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
[2022-07-09] VITALS (9 sets, daily range): BP systolic 118–159; BP diastolic 65–83; PULSE 72–97; RESP 16–20; TEMP 36.5; O2SAT 91–100
[2022-07-09] MEDS: enoxaparin 60 mg/0.6 mL Syringe SUBCUT (01:36)
[2022-07-09] MEDS: ipratropium-albuterol 3 mL Neb INHALATION ×2 (02:30→08:45)
[2022-07-09] MEDS: azithromycin 500 MG in sodium chloride 0.9% 250 ML 250 MG IV (03:47)
[2022-07-09 04:41] LABS: Hematocrit 35.1 % (37.0-47.0); Hemoglobin 11.1 g/dL (11.5-15.3); Mean Corpuscular HGB Conc 31.6 g/dL (30.0-36.0); Mean Corpuscular Hemoglobin 31.6 pg (28.0-34.0); Mean Platelet Volume 10.8 fL (7.4-10.4); Monocytes # 0.5 10^3/uL (0.2-0.9); Monocytes % 8.3 %; Neutrophils # 4.15 10^3/uL (1.8-7.7); Neutrophils % 73.2 %; Nucleated Red Blood Cells % 0 %; Platelet Count 198 10^3/cmm (130-400); Red Blood Count 3.51 10^6/uL (4.1-5.3); Red Cell Distribution Width 13.5 % (12.1-15.1); White Blood Count 5.7 10^3/uL (4.0-10.0)
[2022-07-09 04:58] LABS: D Dimer 1.14 ug/mIFEU (0-0.59)
[2022-07-09] MEDS: cefTRIAXone 1,000 MG in sodium chloride 0.9% (plus) 50 ML 100 MG IV (05:04)
[2022-07-09 05:09] LABS: Alanine Aminotransferase 55 U/L (0-33); Albumin Level 3.6 g/dL (3.5-5.2); Alkaline Phosphatase 117 U/L (35-105); Aspartate Amino Transferase 23 U/L (0-32); Blood Urea Nitrogen 47 mg/dL (8-23); Calcium 9.6 mg/dL (8.5-10.5); Carbon Dioxide 22 mmol/L (22-29); Chloride 101 mmol/L (98-107); Globulin 3.4 g/dL (1.3-4.6); Glucose 94 mg/dL (65-115); Osmolality Calculated 292 mOsm/kg (285-295); Sodium 135 mmol/L (136-145); Total Bilirubin 0.2 mg/dL (0.15-1.2)
--- NOTE | 2022-07-09 07:05 | PC.NURSE ---
Bedside Report given to Maryellen SANCHEZ at this time
--- NOTE | 2022-07-09 08:57 | PC.SOCIAL ---
Pg 2 IMM Explained to pt Pg 2 IMM. No questions voiced. Provided pt a copy. Initialed, dated, & timed a copy & placed in chart.
[2022-07-09] MEDS: metoprolol tartrate 25 mg Tablet PO (10:20)
[2022-07-09] MEDS: clopidogrel 75 mg Tablet PO (10:20)
[2022-07-09] MEDS: NON-FORMULARY MEDICATION (Methenamine Hippurate 1 gram tablet) 1 EACH PO (10:21)
[2022-07-09] MEDS: dexamethasone 10 mg/mL INJ 6 MG IVP (10:21)
[2022-07-09] MEDS: aspirin 81 mg EC Tablet PO (10:21)
[2022-07-09] MEDS: pantoprazole DR 40 mg Tablet PO (10:21)
--- NOTE | 2022-07-09 11:43 | P.DS_ITS ---
Discharge Providers Date of Admission: 07/06/22 03:48 Date of Discharge: July 09, 2022 Attending Provider at Admission: Perry Aguayo Attending Provider at Discharge: Saima Ozuna MD Primary Care Provider: Catalino Sanders MD Diagnoses at Discharge Discharge Diagnosis (1) Acute respiratory failure with hypoxia: Status: Acute (2) COVID-19: Status: Acute (3) NSTEMI (non-ST elevated myocardial infarction): Status: Acute (4) Emphysema lung: Status: Acute Reason for Visit Reason for Visit: Difficulty breathing Brief History: Pleasant 76-year-old lady without history of pulmonary disease, former smoker, but states recently quit, has been feeling unwell since about the end of last week, states has been having cough, dyspnea, wheezing, malaise.? In ER noted to have new oxygen requirement.? With sinus tachycardia.? With no PE on CTA, with small focal area of peripheral consolidation in the right lower lobe, possibly atelectasis versus focal airspace disease.? Incidentally noted T11 compression deformity. COVID-19 coming back positive.? Additionally noted troponin elevation, baseline 604, repeat 500.4, NT proBNP 6571.? EKG with LVH and some ST-T changes.? He does not have any chest pain.? Denies any known prior coronary artery disease or stenting. In ER she received a dose of Solu-Medrol 125 mg, breathing treatment.? Started on therapeutic Lovenox.? She notes some mild improvement in her symptoms. Would want him to resuscitation, but does not wantIn terms of CODE STATUS repeat unsuccessful or protracted attempts with low hope of recovery.? States her son is her power of patent attorney healthcare. Hospital Course Hospital Course This patient was admitted for COVID-19 pneumonia, NSTEMI. She was placed on dexamethasone. Patient required 3 L nasal cannula on admission. Echocardiogram was done which showed LVEF 45%. Hypokinesis of inferior and septal quinn. Grad e 1 diastolic dysfunction. CTA negative for PE. Small focal area of peripheral consolidation in right lower lobe. Interval compression deformity of T11. Patient does not have any focal pain. Cardiology was consulted. Patient recommended to continue on aspirin, statin, metoprolol, Plavix. She was also given 5 doses of therapeutic Lovenox during her hospital stay. Planned for left heart cath outpatient once patient recovers from COVID-19 and her test is negative. Discussed with cardiology extensively. Patient be discharged home to follow-up with cardiology within a week outpatient to schedule her cardiac angiogram. I explained all of the above to the patient and she demonstrates understanding and is in agreement. Patient also received Lasix IV during hospital stay. Patient weaned off to room air. Does not qualify for home oxygen today. We will send her home on Lasix 20 oral daily. I have instructed patient to return to the hospital immediately should she have any new symptoms or worsening of existing symptoms. Nausea, vomiting, shortness of breath, chest pain, abdominal pain, back pain, diaphoresis, pressure-like sensation in chest patient is to return to the hospital. Discharge home in stable condition. Physical Exam Const: COMMON NORMALS: patient oriented x3 and alert GENERAL APPEARANCE: cooperative ORIENTATION/CONSCIOUSNESS: Yes awake HENMT: COMMON NORMALS: oropharynx normal Neck/C-Spine: COMMON NORMALS: no JVD Resp: COMMON NORMALS: normal respiratory effort (mild ronchi at bases) and clear to auscultation bilaterally AUSCULTATION: clear to auscultation bilaterally Cardio: COMMON NORMALS: no JVD, regular rhythm, S1 normal heart sound present, S2 normal heart sound present and No murmurs present (Cardio) RHYTHM: regular rhythm HEART SOUNDS: S1 normal heart sound present and S2 normal heart sound present GI: COMMON NORMALS: Normal to inspection, nondistended, normoactive bowel sounds present, Soft to palpation and non-tender PALPATION: Yes Soft to palpation Extremity: COMMON NORMALS: no joint enlargement and no pedal edema Neuro: COMMON NORMALS: patient oriented x3 and moves all extremities SENSORIUM/ORIENTATION: Yes alert Skin: COMMON NORMALS: no rashes or lesions noted GENERAL SKIN EXAM: no rashes or lesions noted Discharge Data Studies Completed and Pending Completed Studies During Hospitalization Category Date Time Status CTA chest [CT angio chest PE protcl [id number]] Stat Cat Scan 07/06/22 01:24 Completed XR chest 1V portable [id number] Stat Exams 07/06/22 00:24 Completed CV. echo complete* [id number] Routine Ultrasound 07/06/22 04:19 Completed Radiology Impressions Chest X-Ray 07/06/22 00:24 IMPRESSION: 1. Emphysematous changes. 2. Patchy bibasal ground-glass airspace atelectasis versus infiltrates. Chest CTA 07/06/22 01:24 IMPRESSION: 1. No pulmonary embolism identified. 2. Emphysematous disease. 3. Small focal area of peripheral consolidation in the right lower lobe may be consistent with atelectasis versus focal mild airspace disease. 4. Interval compression deformity at T11 not present on prior exam, with approximately 25% height loss anteriorly. Correlate with any focal pain in this region. Laboratory Results WBC 5.7 10^3/uL (4.0-10.0) 07/09/22 03:45 RBC 3.51 10^6/uL (4.1-5.3) L 07/09/22 03:45 Hgb 11.1 g/dL (11.5-15.3) L 07/09/22 03:45 Hct 35.1 % (37.0-47.0) L 07/09/22 03:45 MCV 100.0 fl (81-99) H 07/09/22 03:45 MCH 31.6 pg (28.0-34.0) 07/09/22 03:45 MCHC 31.6 g/dL (30.0-36.0) 07/09/22 03:45 RDW 13.5 % (12.1-15.1) 07/09/22 03:45 Plt Count 198 10^3/cmm (130-400) 07/09/22 03:45 MPV 10.8 fL (7.4-10.4) H 07/09/22 03:45 Neut % (Auto) 73.2 % 07/09/22 03:45 Lymph % (Auto) 18.0 % 07/09/22 03:45 [place] % (Auto) 8.3 % 07/09/22 03:45 Eos % (Auto) 0.0 % 07/09/22 03:45 Baso % (Auto) 0.0 % 07/09/22 03:45 Neut # (Auto) 4.15 10^3/uL (1.8-7.7) 07/09/22 03:45 Lymph # (Auto) 1.0 10^3/uL (0.8-4.8) 07/09/22 03:45 [place] # (Auto) 0.5 10^3/uL (0.2-0.9) 07/09/22 03:45 Eos # (Auto) 0.0 10^3/uL (0.0-0.8) 07/09/22 03:45 Baso # (Auto) 0.0 10^3/uL (0.0-0.1) 07/09/22 03:45 Nucleated RBC % (auto) 0 % 07/09/22 03:45 Nucleated RBCs # 0.0 /100WBC 07/09/22 03:45 PT 13.30 SECONDS (12.1-14.9) 07/06/22 00:28 INR 0.98 (0.8-1.2) 07/06/22 00:28 D-Dimer 1.14 ug/mIFEU (0-0.59) H 07/09/22 03:45 Specimen Type Arterial 07/06/22 01:20 Sample Site Radial, left 07/06/22 01:20 ABG pH 7.42 (7.35-7.45) 07/06/22 01:20 ABG pCO2 31.2 mmHg (35-45) L 07/06/22 01:20 ABG pO2 66.2 mmHg (80.0-100.0) L 07/06/22 01:20 ABG HCO3 19.9 mmol/L (22-26) L 07/06/22 01:20 ABG Base Excess -3.6 mmol/L (-2.0-2.0) L 07/06/22 01:20 Roby Test Pos 07/06/22 01:20 Hematocrit 42.0 % (37-47) 07/06/22 01:20 O2 Delivery Device Nc 07/06/22 01:20 O2 Liters/Min 4.0 % 07/06/22 01:20 FiO2 36.0 % 07/06/22 01:20 Suction Dredge Dumping Supervisor ID glc 07/06/22 01:20 Sodium 135 mmol/L (136-145) L 07/09/22 03:45 Potassium 4.0 mmol/L (3.5-5.1) 07/09/22 03:45 Chloride 101 mmol/L (98-107) 07/09/22 03:45 Carbon Dioxide 22 mmol/L (22-29) 07/09/22 03:45 Anion Gap 16.0 (5-19) 07/09/22 03:45 BUN 47 mg/dL (8-23) H 07/09/22 03:45 Creatinine 1.4 mg/dL (0.5-0.9) H 07/09/22 03:45 GFR Calculation Not Reportable 07/09/22 03:45 Glucose 94 mg/dL (65-115) 07/09/22 03:45 POC Glucose 149 mg/dL (70-110) H 07/07/22 21:24 Calculated Osmolality 292 mOsm/kg (285-295) 07/09/22 03:45 Calcium 9.6 mg/dL (8.5-10.5) 07/09/22 03:45 Total Bilirubin 0.2 mg/dL (0.15-1.2) 07/09/22 03:45 AST 23 U/L (0-32) 07/09/22 03:45 ALT 55 U/L (0-33) H 07/09/22 03:45 Alkaline Phosphatase 117 U/L (35-105) H 07/09/22 03:45 Troponin T Baseline 604 ng/L (0-10) H* 07/06/22 00:34 Troponin T 120 Minute 500.4 ng/L (0-10) H 07/06/22 02:06 Delta Troponin T -103.6 ABS# (0-10) L 07/06/22 02:06 Troponin T Hi Sens 6Hr 473.4 ng/L (0-10) H 07/06/22 06:15 Troponin T Hi Sens 6Hr Delta -130.6 ng/L (0-12) L 07/06/22 06:15 NT-Pro-B Natriuret Pep 6571 pg/mL (0-450) H 07/06/22 00:28 Total Protein 7.0 g/dL (6.6-8.7) 07/09/22 03:45 Albumin 3.6 g/dL (3.5-5.2) 07/09/22 03:45 Globulin 3.4 g/dL (1.3-4.6) 07/09/22 03:45 Triglycerides 123 mg/dL (0-150) 07/07/22 05:57 Cholesterol 160 mg/dL (0-200) 07/07/22 05:57 LDL Cholesterol, Calc 69 mg/dL (50-129) 07/07/22 05:57 HDL Cholesterol 66 mg/dL (60-100) 07/07/22 05:57 LDL/HDL Ratio 1.05 RATIO (0.00-3.22) 07/07/22 05:57 Cholesterol/HDL Ratio 2.42 mg/dL (0.0-4.40) 07/07/22 05:57 Coronavirus 229E (PCR) Not detected (NOT DETECT) 07/06/22 00:35 SARS-CoV-2 (PCR) Detected (NOT DETECT) A 07/06/22 00:35 Vitals Last Vital Signs Temp 97.7 F 07/09/22 00:00 Pulse 88 07/09/22 08:53 Resp 18 07/09/22 08:00 BP 147/75 07/09/22 08:00 Pulse Ox 94 07/09/22 11:00 O2 Del Method 07/09/22 08:00 O2 Flow Rate 1.5 07/09/22 08:00 Discharge Plan Discharge Patient Disposition: Home Condition: Stable Prescriptions: New metoprolol tartrate 25 mg Tablet 25 mg PO BID@0900,2100 30 Days Qty: 60 0RF clopidogrel 75 mg Tablet 75 mg PO DAILY 30 Days Qty: 30 0RF furosemide [Lasix] 20 mg tablet 20 mg PO DAILY 30 Days Qty: 30 0RF levofloxacin 750 mg tablet 750 mg PO DAILY 4 Days Qty: 4 0RF Continued acetaminophen [Tylenol] 325 mg tablet 325 mg PO QID PRN (Reason: Pain) multivitamin [One Daily Multivitamin] Tablet 1 tab PO DAILY Anoro Ellipta 62.5-25 mcg/actuation blister with device 1 inh inhalation DAILY 30 Days Qty: 60 6RF methenamine hippurate 1 gram tablet 1 g PO BID Qty: 60 12RF Rx Instructions: Take 1000 mg of Vitamin C with each dose of Methenamine nicotine 14 mg/24 hr patch 24 hour See Rx Instructions .ROUTE .COMPLEX Rx Instructions: DIRECTED nicotine 7 mg/24 hr patch 24 hour See Rx Instructions .ROUTE .COMPLEX Rx Instructions: DIRECTED ascorbic acid (vitamin C) [Vitamin C] 1,000 mg Tablet 1,000 mg PO DAILY atorvastatin 40 mg Tablet 40 mg PO BEDTIME Qty: 60 0RF aspirin 81 mg Tablet,Delayed Release (Dr/Ec) 81 mg PO DAILY Qty: 30 0RF Held ashwagandha root extract 300 mg Capsule 300 mg PO DAILY Hold Instructions: see pcp Super Beets 1 tab PO DAILY Hold Instructions: hold till seen pcp Discharge Orders: Discharge Order (Routine); Ordered 07/09/22 Ordered By: Saima Ozuna Other Ambulatory Orders: Basic Metabolic Panel (Routine) Timeframe: 1 Week Facility: [facility] - Location: Lab - Main Lab Ordered By: Saima Ozuna Referrals: Bianca Lawrence FNP [Nurse Practitioner] - 1 week Catalino Sanders MD [Primary Care Provider] - 4-7 days Meera Buckley MD [Physician] - 2 weeks Discharge Diet: Cardiac and Low Salt Discharge Activity: Increase activity as tolerated Patient Instructions: Opioid Safety Activity Restrictions/Additional Instructions: Please return to the ER if you experience any new symptoms or worsening of your symptoms. Please see cardiology as outpatient for your cardiac angiogram procedure. Discharge Attestations Time Spent in Discharge Care*: less than 30 min Quality Metrics Clinical Quality Measures [ No reported AMI, CVA or VTE this stay] Coding Level of Care Code Acute Chg DC note Diagnoses Acute respiratory failure with hypoxia J96.01 COVID-19 U07.1 NSTEMI (non-ST elevated myocardial infarction) I21.4 Emphysema lung J43.9
--- NOTE | 2022-07-09 14:09 | PC.NURSE ---
Discussed discharge follow up appointments, medications and held medications with patient. Verbalized understanding.
--- NOTE | 2022-07-09 14:18 | PC.NURSE ---
Notified Dr. Roldan per Dr. Ozuna. Patient has no chest pain, on room air and does not qualify for Oxygen. Dr. Roldan was okay for patient to be discharged.
== END 2022-07-09 14:30 | disposition home or self-care (01) | DRG 177 ==
LOC: ER 03:19 → MEDSURG 03:49
PROVIDERS: Admitting Provider Internal Medicine; Emergency Provider Emergency Medicine; PCP Family Medicine; Visit Provider Internal Medicine
DX: U07.1 COVID-19 (principal); I21.4 Non-ST elevation (NSTEMI) myocardial infarction; J12.82 Pneumonia due to coronavirus disease 2019; J15.9 Unspecified bacterial pneumonia; I50.21 Acute systolic (congestive) heart failure; N17.9 Acute kidney failure, unspecified; Z96.0 Presence of urogenital implants; Z96.641 Presence of right artificial hip joint; F17.210 Nicotine dependence, cigarettes, uncomplicated; I73.9 Peripheral vascular disease, unspecified; Z99.89 Dependence on other enabling machines and devices; Z86.73 Personal history of transient ischemic attack (TIA), and cerebral infarction without residual deficits; E78.5 Hyperlipidemia, unspecified; M19.90 Unspecified osteoarthritis, unspecified site; J43.9 Emphysema, unspecified; Z79.82 Long term (current) use of aspirin
CPT/HCPCS: 36415; 36416; 36600; 71045; 71275; 80053; 80061; 82803; 82962; 83880; 84484; 85025; 85378; 85610; 87635; 93005; 93306; 94640; 94664; 94760; 94762; 96372; 96374; 96375; 99285; J0456; J0696; J1100; J1650; J1940; J2930; J7050; J7611; Q9967

== ENCOUNTER 2022-07-13 13:08 | Outpatient (CLI) | payer MEDICARE, MEDICAID, SELFPAY ==
--- NOTE | 2022-07-13 | USCV_ITS ---
Denia Gerardo Age: 76 Gender: F : 1945 Exam Date: 07/13/2022 13:46 Ordering Phys: Catalino Sanders MD Technologist: Exam Location: [facility] [place]_ Indication: pad RIGHT LEFT Brachial 120.00 mmHg Brachial 110.00 mmHg Pressure (mmHg) Waveform Pressure (mmHg) Waveform 51.00 OVEN TENDER BAGELS 56.00 0.00 DPA 54.00 0.43 Ankle/Brachial Index 0.47 FINDINGS Resting SHIRLEY of 0.43 on the right side and 0.47 on the left side Noted low positives on the results.. On the right side CONCLUSIONS 1. Features of severe peripheral artery disease bilaterally with the resting SHIRLEY of 0.43 on the right and 0.47 on the left. 2. Possible total occlusion of the dorsalis pedis artery on the right side. Dr David Horne MD FAC (Electronically Signed) Final Date: 14 July 2022 08:54 S
== END 2022-07-13 13:09 | disposition home or self-care (01) ==
LOC: RAD 13:09
PROVIDERS: PCP Family Medicine; Visit Provider Family Medicine
DX: I73.9 Peripheral vascular disease, unspecified (principal)
CPT/HCPCS: 93922

== ENCOUNTER → 2022-07-19 13:13 | Outpatient (BNVA) | payer MEDICARE, MEDICAID, SELFPAY | PROVIDERS: PCP Family Medicine; Visit Provider Nurse Practitioner Family | DX: I25.2 Old myocardial infarction (principal); Z87.891 Personal history of nicotine dependence | CPT/HCPCS: 36415; 80048; 99214 ==

== ENCOUNTER 2022-07-26 12:53 | Outpatient (CLI) | payer MEDICARE, MEDICAID, SELFPAY ==
--- NOTE | 2022-07-26 13:03 | XR_ITS ---
WS: [id number] Exam: XR KUB [id number] Date/Time of Exam: 07/26/2022 1:16 PM Reason For Exam: Ureteral Stent Comparison 02/14/2022. Calcifications superimpose both kidneys and apparently represent known renal stones. A double pigtail right ureteral catheter noted in satisfactory position. No bowel obstruction or free air. Surgical c lips in the right and left abdomen. No sign of organ enlargement. Right total hip replacement partial ly visualized. Again noted are changes in the left femoral head suspicious for avascular necrosis. Th e appearance is stable. Pronounced osteopenia of the lumbar spine and pelvis. XR/XR KUB [id number] IMPRESSION: 1. Calcifications superimpose both kidneys and apparently represent known renal stones. Additional 1 cm right abdominal calcification noted apparently represe nts a known small gallstone. 2. No acute abdominal process. 3. A right-sided ureteral stent catheter appearing to be in satisfactory locati on. 4. 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
== END 2022-07-26 12:54 | disposition home or self-care (01) ==
LOC: RAD 12:58
PROVIDERS: PCP Family Medicine; Visit Provider Urology
DX: Z96.0 Presence of urogenital implants (principal); N13.5 Crossing vessel and stricture of ureter without hydronephrosis; I77.9 Disorder of arteries and arterioles, unspecified
CPT/HCPCS: 74018; 81003; 87077; 87086; 87186; 99214

== ENCOUNTER 2022-08-19 08:13 | Inpatient (IN) | payer MEDICARE, MEDICAID, SELFPAY ==
[2022-08-19] VITALS (14 sets, daily range): BP systolic 103–162; BP diastolic 52–95; PULSE 61–117; RESP 14–26; TEMP 36.7; O2SAT 96–100
--- NOTE | 2022-08-19 08:16 | ECG_ITS ---
[facility] Test Date: 2022-08-19 Pat Name: Denia Gerardo Department: Room: Gender: Female Shorer: : 1945 Requested By: Ambrose Durán Order Number: [id number] Cathleen MD: Meera Buckley M.D. Measurements Intervals [place] Rate: 83 P: 46 WV: 177 QRS: 57 QRSD: 99 T: -75 QT: 377 QTc: 445 Interpretive Statements SINUS RHYTHM LEFT VENTRICULAR HYPERTROPHY AND ST-T CHANGE [VOLTAGE CRITERIA PLUS ST/T ABNORMALITY] Compared to ECG 07/06/2022 06:33:40 No significant changes Electronically Signed On 08-19-2022 13:08:10 USER SUPPORT ANALYST SUPERVISOR by Meera Buckley M.D. [id number]
--- NOTE | 2022-08-19 08:16 | XR_ITS ---
WS: [id number] Portable AP upright chest, 08/19/2022 Clinical Data: dyspnea/cough Comparison: Portable chest, 07/06/2022. Findings: No nodules, masses or effusions are seen. The heart is normal. The pulmonary vascularity is not increased. No pneumonia or pneumothorax is seen. There are patchy bilateral lower lobe interstit ial changes which remain the same. The aortic arch and descending thoracic aorta show tortuosity. XR/XR chest 1V portable [id number] Impression: 1. Chronic interstitial lung disease. 2. Atherosclerosis.
--- NOTE | 2022-08-19 08:35 | ED_ITS ---
HPI - SOB/Dyspnea General: Chief Complaint: Shortness of Breath/Dyspnea Stated Complaint: SOB Time Seen by Provider: 08/19/22 08:16 Source: patient Mode of arrival: ambulatory Limitations: no limitations History of Present Illness: HPI Narrative: 76-year-old female presents emergency room with cough and shortness of breath for last day. In late June she was hospitalized briefly for COVID. Sudden onset of shortness of breath and cough this morning. She has a history of CHF she does takes Lasix daily she did take her dose regularly the last couple of days. She is requiring daily 4 L/min this morning. She was discharged home on July 09 and did not require any oxygen at the time of discharge. She denies any chest pain at this time MD elicited complaint: shortness of breath and cough Pertinent past history: congestive heart failure Onset (ago): hour(s) Timing: constant Exacerbating factors: exertion and coughing Relieving factors: oxygen and rest Known history of: congestive heart failure Associated symptoms: Reports chest congestion and cough; Deny abdominal pain, chest pain, diaphoresis, dizziness, extremity pain, fever(s), hemoptysis, lightheadedness, myalgias, nausea, orthopnea, palpitations, paresthesias, polydipsia, polyuria, rash, sense of impending doom, syncope or vomiting Treatment prior to arrival: oxygen Review of Systems Const: Denies: fever(s), chills, fatigue, malaise or diaphoresis ENMT: Denies: throat pain, ear or mastoid pain, nasal discharge or nasal congestion Card: Denies: chest pain, palpitations, lightheadedness, syncope or orthopnea Resp: Reports: dyspnea, productive cough, wheezing and chest congestion; Denies: hemoptysis GI: Denies: abdominal pain, nausea or vomiting : Denies: flank pain, difficulty voiding, dysuria, urinary frequency or urinary urgency Musc: Denies: extremity pain Skin/Breast: Denies: rash or pruritus Neuro: Denies: dizziness Endo: Denies: polyuria or polydipsia PFSH ED PFSH: Medical History Elevated troponin I level Extrinsic ureteral obstruction NSTEMI (non-ST elevated myocardial infarction) Retained ureteral stent Syncope and collapse Urinary incontinence Surgical History H/O arthroscopic knee surgery bilateral H/O oral surgery H/O shoulder surgery H/O total hip arthroplasty right H/O: H/O: hysterectomy History of colon surgery Family History Mother , at age 79 Hypertension Peripheral artery disease Diabetes Father , at age 47 Cancer pancreatic and lung Social History Smoking and tobacco status: current some day smoker (quitting) cigarettes Packs smoked per day: 0.5 Years cigarettes smoked: 60 [ Other cigarette details: Hx of 1 PPD x 50 Years] Second hand smoke exposure: Yes Smoking risk assessment/counseling performed?: Yes Alcohol intake: never Lives independently: Yes Housing: Apartment Marital status: Legally Current occupational status: retired and disabled History of recent travel: No Current gender identity: Female Physical Exam Const: COMMON NORMALS: no acute distress GENERAL APPEARANCE: cooperative and comfortable ORIENTATION/CONSCIOUSNESS: Yes awake, Yes oriented to person, Yes oriented to place and Yes oriented to time HENMT: COMMON NORMALS: normocephalic, atraumatic, hearing grossly normal bilaterally, external ears normal, EAC's normal, TM's normal bilaterally and Normal nasal mucous membranes and turbinates present HEAD & SCALP: normocephalic and atraumatic NOSE: Normal nasal mucous membranes and turbinates present EXTERNAL EAR: Yes external ears normal EXTERNAL AUDITORY CANAL: EAC's normal TYMPANIC MEMBRANE: TM's normal bilaterally Eye: COMMON NORMALS: Equal, round and reactive pupils present, EOMs intact bilaterally, conjunctivae normal and no scleral icterus CONJUNCTIVA: Yes conjunctivae normal PUPIL: Yes Equal, round and reactive pupils present Neck/C-Spine: COMMON NORMALS: full ROM, no lymphadenopathy, supple and no JVD Lymph: LYMPHATIC: no lymphadenopathy noted and no lymphedema noted Resp: COMMON NORMALS: normal respiratory effort, No retractions and No use of accessory muscles AUSCULTATION: wheezes Cardio: COMMON NORMALS: no JVD, regular rate, regular rhythm and No murmurs present (Cardio) RATE: regular rate RHYTHM: regular rhythm GI: COMMON NORMALS: Soft to palpation and No hepatosplenomegaly present AUSCULTATION: Yes normoactive bowel sounds PALPATION: Yes Soft to palpation, No Tenderness to palpation present (GI), No Guarding due to palpation present (GI) and Yes No hepatosplenomegaly present Extremity: COMMON NORMALS: normal to inspection, capillary refill normal, no clubbing, cyanosis or edema, no calf tenderness and no pedal edema Neuro: SENSORIUM/ORIENTATION: Yes oriented to person, Yes oriented to place and Yes oriented to time Skin: COMMON NORMALS: no rashes or lesions noted GENERAL SKIN EXAM: no rashes or lesions noted Course Vital Signs: Vital signs: Vital Signs Temperature 98.0 F 08/19/22 08:21 Pulse Rate 73 08/19/22 12:39 Respiratory Rate 15 08/19/22 12:39 Blood Pressure 139/82 08/19/22 12:39 Pulse Oximetry 99 08/19/22 12:39 Oxygen Delivery Me thod 08/19/22 12:39 Oxygen Flow Rate 2 08/19/22 10:55 MDM - SOB/Dyspnea Medical Decision Making Acute congestive heart failure which is new for the patient now requiring 4 L by nasal cannula will admit the patient. Discussed with hospitalist orders written patient had an echocardiographic in mid April of this year that was normal. Since then has developed the symptoms. She relates them to having had COVID in the past. Age-adjusted D-dimer is negative. Medical Records I reviewed the patient's medical records. Lab Data I reviewed the patient's lab results. 08/19/22 09:30 08/19/22 09:30 Labs/Radiology: Radiology Impressions Chest X-Ray 08/19/22 08:16 Impression: 1. Chronic interstitial lung disease. 2. Atherosclerosis. Laboratory Results WBC 7.5 10^3/uL (4.0-10.0) 08/19/22 09:30 RBC 4.45 10^6/uL (4.1-5.3) 08/19/22 09:30 Hgb 13.9 g/dL (11.5-15.3) 08/19/22 09:30 Hct 42.9 % (37.0-47.0) 08/19/22 09:30 MCV 96.4 fl (81-99) 08/19/22 09:30 MCH 31.2 pg (28.0-34.0) 08/19/22 09:30 MCHC 32.4 g/dL (30.0-36.0) 08/19/22 09:30 RDW 13.2 % (12.1-15.1) 08/19/22 09:30 Plt Count 178 10^3/cmm (130-400) 08/19/22 09:30 MPV 10.4 fL (7.4-10.4) 08/19/22 09:30 Neut % (Auto) 77.9 % 08/19/22 09:30 Lymph % (Auto) 13.8 % 08/19/22 09:30 Anson % (Auto) 6.7 % 08/19/22 09:30 Eos % (Auto) 0.7 % 08/19/22 09:30 Baso % (Auto) 0.5 % 08/19/22 09:30 Neut # (Auto) 5.83 10^3/uL (1.8-7.7) 08/19/22 09:30 Lymph # (Auto) 1.0 10^3/uL (0.8-4.8) 08/19/22 09:30 Anson # (Auto) 0.5 10^3/uL (0.2-0.9) 08/19/22 09:30 Eos # (Auto) 0.1 10^3/uL (0.0-0.8) 08/19/22 09:30 Baso # (Auto) 0.0 10^3/uL (0.0-0.1) 08/19/22 09:30 Nucleated RBC % (auto) 0 % 08/19/22 09:30 Nucleated RBCs # 0.0 /100WBC 08/19/22 09:30 D-Dimer 1.08 ug/mIFEU (0-0.59) H 08/19/22 09:30 Sodium 138 mmol/L (136-145) 08/19/22 09:30 Potassium 4.0 mmol/L (3.5-5.1) 08/19/22 09:30 Chloride 103 mmol/L (98-107) 08/19/22 09:30 Carbon Dioxide 23 mmol/L (22-29) 08/19/22 09:30 Anion Gap 16.0 (5-19) 08/19/22 09:30 BUN 14 mg/dL (8-23) 08/19/22 09:30 Creatinine 1.2 mg/dL (0.5-0.9) H 08/19/22 09:30 GFR Calculation Not Reportable 08/19/22 09:30 Glucose 98 mg/dL (65-115) 08/19/22 09:30 Calculated Osmolality 286 mOsm/kg (285-295) 08/19/22 09:30 Calcium 10.0 mg/dL (8.5-10.5) 08/19/22 09:30 Total Bilirubin 0.7 mg/dL (0.15-1.2) 08/19/22 09:30 AST 15 U/L (0-32) 08/19/22 09:30 ALT 10 U/L (0-33) 08/19/22 09:30 Alkaline Phosphatase 132 U/L (35-105) H 08/19/22 09:30 Troponin T Gen 5 ng/L 42 ng/L (0-10) H 08/19/22 11:45 NT-Pro-B Natriuret Pep 43727 pg/mL (0-450) H 08/19/22 09:30 Total Protein 8.0 g/dL (6.6-8.7) 08/19/22 09:30 Albumin 4.3 g/dL (3.5-5.2) 08/19/22 09:30 Globulin 3.7 g/dL (1.3-4.6) 08/19/22 09:30 Urine Color Colorless (Yellow) 08/19/22 12:35 Urine Appearance Clear (CLEAR) 08/19/22 12:35 Urine pH 6 (5-7) 08/19/22 12:35 Ur Specific Secretary 1.005 (1.005-1.030) 08/19/22 12:35 Urine Protein Neg (Negative) 08/19/22 12:35 Urine Glucose (UA) Norm (Normal) 08/19/22 12:35 Urine Ketones Negative (Negative) 08/19/22 12:35 Urine Blood Neg (Negative) 08/19/22 12:35 Urine Nitrate Negative (Negative) 08/19/22 12:35 Urine Bilirubin Neg (Negative) 08/19/22 12:35 Urine Urobilinogen Norm mg/dL (Negative) 08/19/22 12:35 Ur Leukocyte Esterase 1+ (Negative) H 08/19/22 12:35 Urine RBC 0-4 /hpf (0-2) H 08/19/22 12:35 Urine WBC 0-4 /hpf (0-5) H 08/19/22 12:35 Ur Squamous Epith Cells 0-4 /hpf (0-5) H 08/19/22 12:35 Amorphous Sediment Not Reportable 08/19/22 12:35 Urine Bacteria 2+ /hpf (NONE) H 08/19/22 12:35 Influenza Type A Ag negative (Negative) 08/19/22 08:42 Influenza Type B Ag negative (Negative) 08/19/22 08:42 Discharge Plan Discharge Patient Disposition: Admitted As Inpatient Clinical Impression: Acute systolic CHF (congestive heart failure) Condition: Stable Prescriptions: No Action acetaminophen [Tylenol] 325 mg tablet 325 mg PO QID PRN (Reason: Pain) multivitamin [One Daily Multivitamin] Tablet 1 tab PO DAILY Anoro Ellipta 62.5-25 mcg/actuation blister with device 1 inh inhalation DAILY 30 Days Qty: 60 6RF fluticasone propionate [Flonase Allergy Relief] 50 mcg/actuation sp ray,suspension 1 spray intranasal DAILY Rx Instructions: administer into each nostril methenamine hippurate 1 gram tablet 1 g PO BID Qty: 60 12RF Rx Instructions: Take 1000 mg of Vitamin C with each dose of Methenamine clopidogrel 75 mg tablet 75 mg PO DAILY metoprolol tartrate 50 mg tablet 50 mg PO BID furosemide 20 mg tablet 20 mg PO DAILY ascorbic acid (vitamin C) [Vitamin C] 1,000 mg Tablet 1,000 mg PO DAILY atorvastatin 40 mg Tablet 40 mg PO BEDTIME Qty: 60 0RF aspirin 81 mg Tablet,Delayed Release (Dr/Ec) 81 mg PO DAILY Qty: 30 0RF Referrals: Catalino Sanders MD [Primary Care Provider] - Coding Level of Care Code ED Finisher [employer] for Chg Fwd Exam Comprehensive
[2022-08-19 09:13] LABS: Influenza A by IFA negative (Negative); Influenza B by IFA negative (Negative)
[2022-08-19 09:36] LABS: Basophils % 0.5 %; Eosinophils # 0.1 10^3/uL (0.0-0.8); Eosinophils % 0.7 %; Hematocrit 42.9 % (37.0-47.0); Hemoglobin 13.9 g/dL (11.5-15.3); Lymphocytes % 13.8 %; Mean Corpuscular HGB Conc 32.4 g/dL (30.0-36.0); Mean Corpuscular Hemoglobin 31.2 pg (28.0-34.0); Mean Corpuscular Volume 96.4 fl (81-99); Mean Platelet Volume 10.4 fL (7.4-10.4); Monocytes # 0.5 10^3/uL (0.2-0.9); Monocytes % 6.7 %; Neutrophils # 5.83 10^3/uL (1.8-7.7); Neutrophils % 77.9 %; Nucleated Red Blood Cells % 0 %; Platelet Count 178 10^3/cmm (130-400); Red Blood Count 4.45 10^6/uL (4.1-5.3); Red Cell Distribution Width 13.2 % (12.1-15.1); White Blood Count 7.5 10^3/uL (4.0-10.0)
[2022-08-19 09:52] LABS: D Dimer 1.08 ug/mIFEU (0-0.59)
[2022-08-19 10:06] LABS: Alanine Aminotransferase 10 U/L (0-33); Albumin Level 4.3 g/dL (3.5-5.2); Alkaline Phosphatase 132 U/L (35-105); Aspartate Amino Transferase 15 U/L (0-32); Blood Urea Nitrogen 14 mg/dL (8-23); Carbon Dioxide 23 mmol/L (22-29); Chloride 103 mmol/L (98-107); Globulin 3.7 g/dL (1.3-4.6); Glucose 98 mg/dL (65-115); Osmolality Calculated 286 mOsm/kg (285-295); Sodium 138 mmol/L (136-145); Total Bilirubin 0.7 mg/dL (0.15-1.2)
[2022-08-19] MEDS: FUROsemide 10 mg/mL SDV 4mL 40 MG IVP ×2 (11:21→19:35)
--- NOTE | 2022-08-19 11:37 | USCV_ITS ---
Denia Gerardo Age: 76 Gender: F : 1945 Exam Date: 08/19/2022 11:48 Ordering Phys: Arthur Polk MD Technologist: MOUSTAPHA [place]am [place] [facility] [place]: CHF BP: 116 / 95 HR: 62 Rhythm: Sinus Technical Quality: Suboptimal MEASUREMENTS (Male / Female) Normal Values 2D ECHO LV Diastolic Diameter PLAX 5.4 cm 4.2 - 5.9 / 3.9 - 5.3 cm LV Systolic Diameter PLAX 4.5 cm IVS Diastolic Thickness 0.7 cm 0.6 - 1.0 / 0.6 - 0.9 cm IVS Systolic Thickness 0.9 cm LVPW Diastolic Thickness 0.7 cm 0.6 - 1.0 / 0.6 - 0.9 cm LVPW Systolic Thickness 1.1 cm LV Ejection Fraction 2D Teich 33.9 % LV Ejection Fraction MOD 2C 37.1 % LV Ejection Fraction 2C AL 37.6 % FINDINGS Left Ventricle The study is limited to two-dimensional only. No M-mode or Doppler examinations were obtained. The ventricle is normal in size. There is mild global hypokinesis. The overall ejection fraction is about 40%. There do not appear to be any wall motion disturbances. Diastolic function not evaluated. Right Ventricle Normal right ventricular size and systolic function. Right Atrium The right atrium is normal in size. Left Atrium Moderately increased left atrial size. Mitral Valve Structurally normal mitral valve. Aortic Valve Structurally normal trileaflet aortic valve. Tricuspid Valve Structurally normal tricuspid valve. Pulmonic Valve Pulmonic valve not well visualized. Pericardium Normal pericardium without effusion. Aorta Normal ascending aorta dimension. IVC Inferior vena cava not visualized. CONCLUSIONS The study is limited to two-dimensional only. No M-mode or Doppler examinations were obtained. The ventricle is normal in size. There is mild global hypokinesis. The overall ejection fraction is about 40%. There do not appear to be any wall motion disturbances. Diastolic function not evaluated. Moderately increased left atrial size. Previous study was done 07/06/2022. There were wall motion disturbances noted on that study. They may be present on this study but it is too poor to delineate these findings. Ejection fraction was 45% on the previous study. No other new findings. Dr. Kishan Lozano MD (Electronically Signed) Final Date: 19 August 2022 13:28 S
--- NOTE | 2022-08-19 11:47 | P.HP_ITS ---
Providers/Chief Complaint Admitting Physician: Arthur Polk MD Primary Care Provider: Catalino Sanders MD Chief Complaint: SOB History of Present Illness Denia Gerardo is a 76 year old female presenting to the emergency department with complaints of shortness of breath. She reports she was doing fairly good, without significant shortness of breath or wheezing until yesterday afternoon. This accentuated during the night and she had to come into the hospital. She reports she did have COVID in June, but it improved to a significant degree. She had had some cardiac concerns, and was going to have an angiogram next week. She denies any chest discomfort, nausea. She reports she has a cough, but it is not productive. She has had no recent fevers. In the emergency department she was diagnosed with heart failure, and a dose of Lasix IV was given. She does continue to smoke. It appears she had a urine culture possibly through urology clinic on July 26 that grew out ESBL. Review of Systems General: Reports: 10 or more systems reviewed and unremarkable except in HPI and below Const: Reports: fatigue; Denies: fever(s) or chills Eyes: Denies: change in vision ENMT: Denies: throat pain Card: Reports: orthopnea; Denies: chest pain or swelling of feet/ankles Resp: Reports: dyspnea and non-productive cough GI: Denies: abdominal pain, nausea, vomiting, hematochezia or melena : Denies: flank pain or difficulty voiding Musc: Denies: neck pain Skin/Breast: Denies: rash Neuro: Denies: headache(s) Psych: Denies: anxiety or depression Endo: Denies: polyuria Elia/Lymph: Denies: easy bruising All/Imm: Denies: urticaria Medications/Allergies Home Medications Medication Instructions Recorded Confirmed Last Taken Type acetaminophen 325 mg tablet 325 mg PO QID PRN Pain 05/04/20 08/19/22 02/26/22 History (Tylenol) multivitamin (One Daily 1 tab PO DAILY 05/04/20 08/19/22 08/19/22 History Multivitamin tablet) umeclidinium 62.5 mcg-vilanterol 1 inh inhalation DAILY 30 days #60 05/21/21 08/19/22 08/19/22 Rx 25 mcg/actuation powdr for ea inhalation (Anoro Ellipta) methenamine hippurate 1 gram tablet 1 g PO BID #60 tabs 03/01/22 08/19/22 08/19/22 Rx ascorbic acid (vitamin C) 1,000 mg 1,000 mg PO DAILY 04/26/22 08/19/22 08/19/22 History tablet (Vitamin C) aspirin 81 mg tablet,delayed 81 mg PO DAILY #30 tabs 04/27/22 08/19/22 08/19/22 Rx release atorvastatin 40 mg tablet 40 mg PO BEDTIME #60 tabs 04/27/22 08/19/22 08/18/22 Rx fluticasone propionate 50 1 spray intranasal DAILY 07/26/22 08/19/22 08/19/22 History mcg/actuation nasal spray,suspension (Flonase Allergy Relief) clopidogrel 75 mg tablet 75 mg PO DAILY 08/19/22 08/19/22 08/19/22 History furosemide 20 mg tablet 20 mg PO DAILY 08/19/22 08/19/22 08/19/22 History metoprolol tartrate 50 mg tablet 50 mg PO BID 08/19/22 08/19/22 08/19/22 History Allergies Allergy/AdvReac Type Severity Reaction Status Date / Time meperidine [From Demerol] Allergy Unknown Unknown Verified 08/19/22 09:10 morphine Allergy Unknown Unknown Verified 08/19/22 09:10 PFSH Acute PFSH: Medical History Elevated troponin I level Extrinsic ureteral obstruction NSTEMI (non-ST elevated myocardial infarction) Retained ureteral stent Syncope and collapse Urinary incontinence Surgical History H/O arthroscopic knee surgery bilateral H/O oral surgery H/O shoulder surgery H/O total hip arthroplasty right H/O: H/O: hysterectomy History of colon surgery Family History Mother , at age 79 Hypertension Peripheral artery disease Diabetes Father , at age 47 Cancer pancreatic and lung Social History Smoking and tobacco status: current some day smoker (quitting) cigarettes Packs smoked per day: 0.5 Years cigarettes smoked: 60 [ Other cigarette details: Hx of 1 PPD x 50 Years] Second hand smoke exposure: Yes Smoking risk assessment/counseling performed?: Yes Alcohol intake: never Lives independently: Yes Housing: Apartment Marital status: Legally Current occupational status: retired and disabled History of recent travel: No Current gender identity: Female Vitals/I&O/Wt Last Vital Signs Temp 98.0 F 08/19/22 08:21 Pulse 99 08/19/22 10:55 Resp 14 08/19/22 10:55 BP 162/95 08/19/22 10:55 Pulse Ox 100 08/19/22 10:55 O2 Del Method 08/19/22 10:55 O2 Flow Rate 2 08/19/22 10:55 Physical Exam Narrative: General exam is a white female, wearing 4 L of oxygen, with mild retractions and tachypnea HEENT: Atraumatic normocephalic. Pupils equally round. Oropharynx clear. Neck is supple no lymphadenopathy thyromegaly Cardiovascular regular rate and rhythm, borderline tachycardic, no murmur Lungs bilateral expiratory crackles, at the bases. A few faint wheezes. Abdomen is soft nontender positive bowel sounds. No obvious organomegaly exams deferred Extremities show no cyanosis clubbing or edema, cap refill brisk Skin no rash Neuro no obvious focal deficits. Data 08/19/22 09:30 08/19/22 09:30 Other Labs: Dimer is 1.08, normal when adjusted for age LFTs normal with exception of alk phos of 132 Initial troponin 42 BNP 24,630 Albumin normal Influenza testing negative Chest x-ray shows interstitial infiltrates, possibly edema bilaterally Previous echocardiogram in June demonstrated ejection fraction of 45%, grade 1 diastolic dysfunction, moderate mitral regurgitation EKG demonstrates sinus rhythm, normal axis, LVH, flipped T waves inferiorly which appear more prominent than previous EKGs. A&P Assessment and plan (1) Acute systolic CHF (congestive heart failure): Patient appears to present with acute congestive heart failure, systolic. Chest x-ray demonstrates some interstitial changes, likely edema. Obtain limited echo. Previous echocardiogram demonstrated reduced EF of 45%, some wall motion abnormality inferiorly. EKG does demonstrate some flipped T waves inferiorly today. This was not present in April. Agree with Lasix given in the emergency department, continue every 12 hours Check troponin on admission, and 2-hour troponin. Consider 6-hour if elevating Cardiology was potentially going to perform an angiogram as an outpatient soon. Given the concern for admission for acute systolic heart failure will involve them now. Currently on Plavix, aspirin, statin, beta-amado. (2) Hypoxia: Appears to be secondary to congestive heart failure (3) Emphysema lung: Patient with known COPD Continue DuoNeb Budesonide No evidence currently of acute exacerbation. I believe her breathing difficulties secondary to congestive heart failure. (4) Retained ureteral stent: Sugey is planning an exchange sometime in the near future Recent urine culture July and demonstrated ESBL. Repeat urinalysis in case she becomes symptomatic care. Discussed briefly with urology. As long as she is asymptomatic, he does expect her bacteriuria to clear with the foreign body(stent) in. He would not treat the infection unless she becomes symptomatic. Plan History of urinary stent, with planned stent exchange next week Past history of cervical cancer requiring radical hysterectomy Other medical problems as outlined in past medical history Full code Lovenox for DVT prophylaxis Attestations Medical Necessity Statement*: Will need greater than 2 midnight stay for evaluation and treatment of acute congestive heart failure, suspect diastolic Coding Level of Care Code Acute Disease Intervention Specialist for Isi Calhoun Diagnoses Acute systolic CHF (congestive heart failure) I50.21 Hypoxia R09.02 Emphysema lung J43.9 Retained ureteral stent Z96.0
[2022-08-19 12:14] LABS: Troponin T (5th) Once 42 ng/L (0-10)
[2022-08-19 12:59] LABS: Add Urine Culture? Yes; Bacteria Urine 2+ /hpf; Bilirubin Urine Neg (Negative); Blood Urine Neg (Negative); Glucose Urine UA Norm (Normal); Ketones Urine Negative (Negative); Leukocyte Esterase Urine 1+ (Negative); Nitrate Urine Negative (Negative); Protein Urine Neg (Negative); RBC Urine 0-4 /hpf (0-2); Specific Gravity, Urine 1.005 (1.005-1.030); Squamous Epithelial Cell Urine 0-4 /hpf (0-5); Urine Appearance Clear (CLEAR); Urine Color Colorless (Yellow); Urobilinogen Urine Norm (Negative); WBC Urine 0-4 /hpf (0-5); pH Urine 6 (5-7)
[2022-08-19 13:04] LABS: Troponin T (5th) Once 43 ng/L (0-10)
--- NOTE | 2022-08-19 14:16 | PM.CONSULT ---
Providers/Reason For Consult Consulting Physician/Specialty*: Cardiovascular medicine Reason for Consult*: Congestive heart failure Requesting Physician: Felicitas Attending Physician: Arthur Polk Primary Care Provider: Catalino Sanders MD History of Present Illness History of Present Illness Denia Gerardo is a 76 year old female she was in the hospital in April with dehydration. She was back again on 06 July with COVID. At that time her troponin was elevated and her ejection fraction by echo was about 45%. She was seen by one of the armor reconnaissance vehicle driver and it was recommended she undergo an angiogram as an outpatient. That is scheduled for this coming . She states that she started to get short of breath yesterday and it worsened this morning which prompted her visit to the emergency room. Here her oxygen requirements increased and she was on 4 L. She was found to have chest x-ray consistent with congestive heart failure but also interstitial lung disease. She continues to smoke unfortunately. Complicating all of this is a retained ureteral stent which needs to be changed. 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 She underwent a robotic assisted total abdominal hysterectomy, bilateral salpingo-oophorectomy and pelvic lymphadenectomy. It was complicated by C. 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 This created hydronephrosis which ultimately required a stent. She also received postoperative chemoradiation. She has a long history of other medical problems including hypertension, dyslipidemia, peripheral arterial disease with a femoral-popliteal bypass, GERD, degenerative joint disease, depression, TIA, iron deficiency anemia, pulmonary nodule and COPD. She is a long-term smoker. Her creatinine is 1.2. Her initial troponin is 42. Her BNP is greater than 24,000. Chest x-ray shows some pulmonary vascular redistribution and interstitial lung disease. She did receive some Lasix here in the ER and seems to feel somewhat better. Dr. Polk asked me to see her to decide about angiography. A repeat echocardiogram today shows ejection fraction about 40% with global hypokinesis. Review of Systems Narrative: Review of systems is negative Medications/Allergies Home Medications Medication Instructions Recorded Confirmed Last Taken Type acetaminophen 325 mg tablet 325 mg PO QID PRN Pain 05/04/20 08/19/22 02/26/22 History (Tylenol) multivitamin (One Daily 1 tab PO DAILY 05/04/20 08/19/22 08/19/22 History Multivitamin tablet) umeclidinium 62.5 mcg-vilanterol 1 inh inhalation DAILY 30 days #60 05/21/21 08/19/22 08/19/22 Rx 25 mcg/actuation powdr for ea inhalation (Anoro Ellipta) methenamine hippurate 1 gram tablet 1 g PO BID #60 tabs 03/01/22 08/19/22 08/19/22 Rx ascorbic acid (vitamin C) 1,000 mg 1,000 mg PO DAILY 04/26/22 08/19/22 08/19/22 History tablet (Vitamin C) aspirin 81 mg tablet,delayed 81 mg PO DAILY #30 tabs 04/27/22 08/19/22 08/19/22 Rx release atorvastatin 40 mg tablet 40 mg PO BEDTIME #60 tabs 04/27/22 08/19/22 08/18/22 Rx fluticasone propionate 50 1 spray intranasal DAILY 07/26/22 08/19/22 08/19/22 History mcg/actuation nasal spray,suspension (Flonase Allergy Relief) clopidogrel 75 mg tablet 75 mg PO DAILY 08/19/22 08/19/22 08/19/22 History furosemide 20 mg tablet 20 mg PO DAILY 08/19/22 08/19/22 08/19/22 History metoprolol tartrate 50 mg tablet 50 mg PO BID 08/19/22 08/19/22 08/19/22 History Allergies Allergy/AdvReac Type Severity Reaction Status Date / Time meperidine [From Demerol] Allergy Unknown Unknown Verified 08/19/22 09:10 morphine Allergy Unknown Unknown Verified 08/19/22 09:10 PFSH Acute PFSH: Medical History (Updated 08/19/22 @ 14:25 by Kishan Lozano MD) Cardiomyopathy COPD (chronic obstructive pulmonary disease) Dyslipidemia Elevated troponin I level Essential hypertension Extrinsic ureteral obstruction NSTEMI (non-ST elevated myocardial infarction) Peripheral arterial disease Retained ureteral stent Syncope and collapse Tobacco abuse Urinary incontinence Surgical History H/O arthroscopic knee surgery bilateral H/O oral surgery H/O shoulder surgery H/O total hip arthroplasty right H/O: H/O: hysterectomy History of colon surgery Family History Mother , at age 79 Hypertension Peripheral artery disease Diabetes Father , at age 47 Cancer pancreatic and lung Social History Smoking and tobacco status: current some day smoker (quitting) cigarettes Packs smoked per day: 0.5 Years cigarettes smoked: 60 [ Other cigarette details: Hx of 1 PPD x 50 Years] Second hand smoke exposure: Yes Smoking risk assessment/counseling performed?: Yes Alcohol intake: never Lives independently: Yes Housing: Apartment Marital status: Legally Current occupational status: retired and disabled History of recent travel: No Current gender identity: Female Vitals/I&O/Wt Last Vital Signs Temp 98.0 F 08/19/22 08:21 Pulse 73 08/19/22 12:39 Resp 15 08/19/22 12:39 BP 139/82 08/19/22 12:39 Pulse Ox 99 08/19/22 12:39 O2 Del Method 08/19/22 12:39 O2 Flow Rate 2 08/19/22 10:55 Physical Exam Narrative: GENERAL: In general she is sitting up in bed able to complete sentences. Mildly short of breath at rest. Oriented x3. HEENT: Exam within normal limits. NECK: Supple without jugular vein distention. The carotid upstroke is normal without bruits. BACK: Exam normal. LUNGS: Occasional dry crackles and moist rales noted. HEART: Regular rate and rhythm. ABDOMEN: Benign without organomegaly or tenderness. EXTREMITIES: No edema. NEUROLOGIC: Exam normal. SKIN: Unremarkable. Data 08/19/22 09:30 08/19/22 09:30 A&P Assessment and plan (1) Hypoxia: (2) Acute systolic CHF (congestive heart failure): (3) COVID-19: (4) Elevated troponin: (5) Retained ureteral stent: (6) Cardiomyopathy: (7) Essential hypertension: (8) Dyslipidemia: (9) Peripheral arterial disease: (10) Tobacco abuse: (11) COPD (chronic obstructive pulmonary disease): Plan We will need to compensate her congestive heart failure prior to consideration of angiography. We will evaluate her daily and move forward from there. She is fairly frail and not the best candidate for angiography. She has been placed on Lasix twice daily and her other routine medications. Afterload reducing agents are appropriate. She is already on aspirin and Plavix. Consult Attestations Medical Necessity Statement: Admission for treatment of congestive heart failure and COPD. Coding Level of Care Code New Pt Acute Lead Based Paint Technician for Isi Calhoun Patient Type New History Detailed Exam Detailed Medical Decision Making Moderate Complexity Diagnoses Hypoxia R09.02 Acute systolic CHF (congestive heart failure) I50.21 COVID-19 U07.1 Elevated troponin R77.8 Retained ureteral stent Z96.0 Cardiomyopathy I42.9 Essential hypertension I10 Dyslipidemia E78.5 Peripheral arterial disease I73.9 Tobacco abuse Z72.0 COPD (chronic obstructive pulmonary disease) J44.9
[2022-08-19] MEDS: enoxaparin 40 mg/0.4 mL Syringe SUBCUT (17:01)
[2022-08-19] MEDS: metoprolol tartrate 50 mg Tablet PO (17:01)
[2022-08-19 20:15] LABS: Glucose Point of Care 125 mg/dL (70-110)
[2022-08-19] MEDS: atorvastatin 40 mg Tablet PO (21:09)
[2022-08-19] MEDS: ipratropium-albuterol 3 mL Neb INHALATION (21:43)
[2022-08-19] MEDS: budesonide 0.5 mg/2 mL Neb INHALATION (21:45)
[2022-08-20] VITALS (11 sets, daily range): BP systolic 109–131; BP diastolic 50–65; PULSE 58–88; RESP 16–26; TEMP 36.7; O2SAT 95–99
[2022-08-20] MEDS: ipratropium-albuterol 3 mL Neb INHALATION ×4 (02:47→21:00)
[2022-08-20 05:35] LABS: Eosinophils # 0.1 10^3/uL (0.0-0.8); Hematocrit 40.7 % (37.0-47.0); Hemoglobin 13.1 g/dL (11.5-15.3); Lymphocytes # 1.6 10^3/uL (0.8-4.8); Mean Corpuscular HGB Conc 32.2 g/dL (30.0-36.0); Mean Corpuscular Hemoglobin 31.3 pg (28.0-34.0); Mean Corpuscular Volume 97.4 fl (81-99); Mean Platelet Volume 10.6 fL (7.4-10.4); Monocytes # 0.3 10^3/uL (0.2-0.9); Monocytes % 8.4 %; Neutrophils # 1.96 10^3/uL (1.8-7.7); Neutrophils % 48.4 %; Nucleated Red Blood Cells % 0 %; Platelet Count 183 10^3/cmm (130-400); Red Blood Count 4.18 10^6/uL (4.1-5.3); Red Cell Distribution Width 13.5 % (12.1-15.1); White Blood Count 4.1 10^3/uL (4.0-10.0)
[2022-08-20 06:04] LABS: Alanine Aminotransferase 7 U/L (0-33); Albumin Level 3.8 g/dL (3.5-5.2); Alkaline Phosphatase 108 U/L (35-105); Anion Gap 15.5 (5-19); Aspartate Amino Transferase 11 U/L (0-32); Blood Urea Nitrogen 19 mg/dL (8-23); Calcium 9.8 mg/dL (8.5-10.5); Carbon Dioxide 23 mmol/L (22-29); Chloride 102 mmol/L (98-107); Globulin 3.4 g/dL (1.3-4.6); Glucose 93 mg/dL (65-115); Magnesium 2.1 mg/dL (1.7-2.3); Osmolality Calculated 286 mOsm/kg (285-295); Potassium 3.5 mmol/L (3.5-5.1); Sodium 137 mmol/L (136-145); Total Protein 7.2 g/dL (6.6-8.7)
[2022-08-20] MEDS: FUROsemide 10 mg/mL SDV 4mL 40 MG IVP ×2 (08:30→20:25)
[2022-08-20] MEDS: budesonide 0.5 mg/2 mL Neb INHALATION ×2 (08:34→21:00)
--- NOTE | 2022-08-20 08:46 | P.PN_ITS ---
Subjective Subjective: Denia feels better this morning. Her oxygen requirements are down to 1 L. Her breathing is improved. Creatinine is 1.3. Troponin 132 and 108. Vitals/I&O/Wt Last Vital Signs Temp 98.0 F 08/20/22 04:00 Pulse 88 08/20/22 08:00 Resp 17 08/20/22 08:00 BP 126/57 08/20/22 04:00 Pulse Ox 99 08/20/22 08:00 O2 Del Method 08/20/22 08:00 O2 Flow Rate 2 08/20/22 08:00 08/19/22 08/20/22 08/20/22 22:59 06:59 14:59 Intake Total 120 / 120 180 / 300 Output Total 250 / 250 150 / 400 Balance -130 / -130 30 / -100 Weight last 48 hrs Weight 126 lb 5 oz Physical Exam Narrative: GENERAL: In general she is improved this morning with decreasing shortness of breath. HEENT: Exam within normal limits. NECK: Supple without jugular vein distention. The carotid upstroke is normal wit hout bruits. BACK: Exam normal. LUNGS: Clear. HEART: Regular rate and rhythm. ABDOMEN: Benign without organomegaly or tenderness. EXTREMITIES: No edema. NEUROLOGIC: Exam normal. SKIN: Unremarkable. Data 08/20/22 04:51 08/20/22 04:51 A&P Assessment and plan (1) COPD (chronic obstructive pulmonary disease): (2) Tobacco abuse: (3) Peripheral arterial disease: (4) Dyslipidemia: (5) Essential hypertension: (6) Cardiomyopathy: (7) Hypoxia: (8) Acute systolic CHF (congestive heart failure): (9) NSTEMI (non-ST elevated myocardial infarction): (10) Retained ureteral stent: Plan Angiography tomorrow. We will probably use her femoral artery since she has very small arms and a poor radial pulse. Attestations Medical Necessity Statement*: Hospitalization required for exacerbation of COPD and congestive heart failure. Coding Level of Care Code Established Pt Acute Staff Services Manager for Isi Calhoun Patient Type Established History Detailed Exam Detailed Medical Decision Making Moderate Complexity Diagnoses COPD (chronic obstructive pulmonary disease) J44.9 Tobacco abuse Z72.0 Peripheral arterial disease I73.9 Dyslipidemia E78.5 Essential hypertension I10 Cardiomyopathy I42.9 Hypoxia R09.02 Acute systolic CHF (congestive heart failure) I50.21 NSTEMI (non-ST elevated myocardial infarction) I21.4 Retained ureteral stent Z96.0
[2022-08-20] MEDS: aspirin 81 mg EC Tablet PO (09:49)
[2022-08-20] MEDS: metoprolol tartrate 50 mg Tablet PO ×2 (09:49→16:58)
[2022-08-20] MEDS: clopidogrel 75 mg Tablet PO (09:49)
--- NOTE | 2022-08-20 16:16 | PM.PN ---
Subjective Subjective: Patient was seen and examined this morning, shortness of breath is improved, currently she denied any chest pain, saturating well on minimal supplemental oxygen. Medications: Medication Review Details: Generic Name Dose Route Start Last Admin Trade Name Deena PRN Reason Stop Dose Admin Albuterol/Ipratrop ium 3 ml 08/19/22 20:00 08/20/22 13:46 Ipratropium-Albu terol 3 Ml Neb INHALATION 3 ml Q6H.RESP KORTNEY Administration Aspirin 81 mg 08/20/22 09:00 08/20/22 09:49 Aspirin 81 Mg Ec Tablet PO 81 mg DAILY KORTNEY Administration Atorvastatin Calci um 40 mg 08/19/22 21:00 08/19/22 21:09 Atorvastatin 40 Mg Tablet PO 40 mg BEDTIME KORTNEY Administration Budesonide 0.5 mg 08/19/22 20:00 08/20/22 08:34 Budesonide 0.5 M g/2 Ml Neb INHALATION 0.5 mg BID.RESPIRATORY S CH Administration Clopidogrel Bisulf ate 75 mg 08/20/22 09:00 08/20/22 09:49 Clopidogrel 75 M g Tablet PO 75 mg DAILY KORTNEY Administration Enoxaparin Sodium 40 mg 08/19/22 16:06 08/19/22 17:01 Enoxaparin 40 Mg /0.4 Ml Syringe SUBCUT 40 mg Q24H KORTNEY Administration Furosemide 40 mg 08/19/22 19:00 08/20/22 08:30 Furosemide 10 Mg /Ml Sdv 4ml IVP 40 mg Q12H KORTNEY Administration Metoprolol Tartrat e 50 mg 08/19/22 18:00 08/20/22 09:49 Metoprolol Tartr ate 50 Mg Tablet PO 50 mg BID KORTNEY Administration Non-Formulary Medi cation 1 gm 08/19/22 18:00 08/20/22 15:08 Methenamine Jefferson urate PO Not Given BID [facility] Vitals/I&O/Wt Last Vital Signs Temp 98.0 F 08/20/22 04:00 Pulse 70 08/20/22 13:48 Resp 16 08/20/22 13:48 BP 109/50 08/20/22 12:31 Pulse Ox 97 08/20/22 13:48 O2 Del Method 08/20/22 13:48 O2 Flow Rate 1 08/20/22 13:48 08/20/22 08/20/22 08/20/22 06:59 14:59 22:59 Intake Total 180 / 300 480 / 480 Output Total 150 / 400 350 / 350 Balance 30 / -100 130 / 130 Weight last 48 hrs Weight 57.294 kg Physical Exam Resp: COMMON NORMALS: normal respiratory effort, No retractions, No use of accessory muscles and clear to auscultation bilaterally EFFORT & INSPECTION: Yes symmetric chest movement AUSCULTATION: clear to auscultation bilaterally Cardio: COMMON NORMALS: regular rate, regular rhythm, S1 normal heart sound present, S2 normal heart sound present, No gallops present (Cardio), No murmurs present (Cardio), No rub (Cardio) and Peripheral pulses 2+ throughout RATE: regular rate RHYTHM: regular rhythm HEART SOUNDS: S1 normal heart sound present and S2 normal heart sound present PERIPHERAL PULSES: Peripheral pulses 2+ throughout GI: COMMON NORMALS: Normal to inspection, nondistended, normoactive bowel sounds present, Soft to palpation, non-tender, No hepatosplenomegaly present and no masses AUSCULTATION: Yes normoactive bowel sounds PALPATION: Yes Soft to palpation and Yes No hepatosplenomegaly present RECTAL EXAM: deferred Extremity: COMMON NORMALS: no clubbing, cyanosis or edema and no pedal edema Data 08/20/22 04:51 08/20/22 04:51 Micro: Microbiology 08/19/22 12:35 Urine Culture - Preliminary Urine,Clean Catch Gram Negative Rods A&P Assessment and plan (1) Acute systolic CHF (congestive heart failure): Patient appears to present with acute congestive heart failure, systolic. Chest x-ray demonstrates some interstitial changes, likely edema. Obtain limited echo. Previous echocardiogram demonstrated reduced EF of 45%, some wall motion abnormality inferiorly. EKG does demonstrate some flipped T waves inferiorly today. This was not present in April. Agree with Lasix given in the emergency department, continue every 12 hours Check troponin on admission, and 2-hour troponin. Consider 6-hour if elevating Cardiology was potentially going to perform an angiogram as an outpatient soon. Given the concern for admission for acute systolic heart failure will involve them now. Currently on Plavix, aspirin, statin, beta-amado. (2) Hypoxia: Appears to be secondary to congestive heart failure (3) Emphysema lung: Patient with known COPD Continue DuoNeb Budesonide No evidence currently of acute exacerbation. I believe her breathing difficulties secondary to congestive heart failure. (4) Retained ureteral stent: Sugey is planning an exchange sometime in the near future Recent urine culture July and demonstrated ESBL. Repeat urinalysis in case she becomes symptomatic care. Discussed briefly with urology. As long as she is asymptomatic, he does expect her bacteriuria to clear with the foreign body(stent) in. He would not treat the infection unless she becomes symptomatic. Plan 76 year old female with PMHx of PAD s/o right sided femoro-popliteal bypass several years back, h/o TIA, recent stroke (04/2022- MRI:?Subacute lacunar infarct RIGHT wolfe radiata),??HLD, arthritis uses a walker, emphysema and former smoker, COVID-19 in June , recent history of NSTEMI, heart failure with reduced ejection fraction, came in with chief complaint of worsening shortness of breath, she was admitted for the management of: Assessment: Decompensated heart failure with reduced ejection fraction History of COPD History of CVA History of peripheral artery disease History of TIA CKD stage III History of ureteral stent: Follow urology as an outpatient: Plan is for a stent exchange sometime next week. History of cervical cancer s/p radical hysterectomy Plan: X-ray chest done on admission has shown chronic changes, possible interstitial edema, no pulm vascular congestion. 2D echo: Mild global hypokinesia, with LVEF of 40% proBNP 16892 Was on Lasix 40 IV twice daily which has been kept on hold. Currently on gentle IV hydration Continue DuoNebs, budesonide inhaler Continue aspirin Plavix statin Monitor and output charting Monitor electrolytes Monitor daily weight Cardiology on board: Plan is for cardiac cath tomorrow in the morning. Patient was scheduled for outpatient cath, given her recent history of NSTEMI, she was awaiting recovery from COVID-19. CODE STATUS: Full code DVT prophylaxis: On Lovenox Attestations Medical Necessity Statement*: Patient is to in hospital for management of decompensated heart failure. Coding Level of Care Code Acute Reed Repairer for Isi Fwd Exam Expanded Problem Focused Diagnoses Acute systolic CHF (congestive heart failure) I50.21 Hypoxia R09.02 Emphysema lung J43.9 Retained ureteral stent Z96.0
[2022-08-20] MEDS: enoxaparin 40 mg/0.4 mL Syringe SUBCUT (16:58)
[2022-08-20] MEDS: atorvastatin 40 mg Tablet PO (21:18)
[2022-08-21] VITALS (19 sets, daily range): BP systolic 115–142; BP diastolic 53–73; PULSE 60–101; RESP 16–26; TEMP 36.3–36.6; O2SAT 95–99
[2022-08-21] MEDS: ipratropium-albuterol 3 mL Neb INHALATION ×4 (02:09→20:43)
[2022-08-21] MEDS: sodium chloride 0.9% 1,000 ML 50 ML IV (06:11)
[2022-08-21] MEDS: diphenhydrAMINE 50 mg Capsule PO (06:11)
--- NOTE | 2022-08-21 07:25 | P.PN_ITS ---
Subjective Subjective: I brought the patient down to the catheterization laboratory today to make an attempt at left heart catheterization and coronary angiography. She has no radial pulses. I was able to enter the right radial artery once with very poor blood flow. The wire would not enter the vessel. I then switched to the left groin. I was able to enter the left common femoral artery 3 times with a needle with very minimal backflow of blood. Attempts with a Glidewire and a standard J-wire were unsuccessful at entering the vessel. My suspicion is the left common femoral artery is closed and the backflow through the needle was from below. She has a right femoral-popliteal bypass but has no pulse in the right groin so I did not attempt a right groin stick. Additionally, she has no pulse in the left groin either. It was after this that I decided to abandon the procedure and stop. Her breathing is improved. Vitals/I&O/Wt Last Vital Signs Temp 97.4 F L 08/21/22 04:00 Pulse 85 08/21/22 06:00 Resp 20 H 08/21/22 04:00 BP 125/61 08/21/22 04:00 Pulse Ox 96 08/21/22 02:09 O2 Del Method 08/21/22 04:00 O2 Flow Rate 98 08/21/22 04:00 08/20/22 08/21/22 08/21/22 22:59 06:59 14:59 Intake Total 240 / 720 Output Total 1000 / 1350 250 / 1600 Balance -760 / -630 -250 / -880 Weight last 48 hrs Weight 126 lb 5 oz Physical Exam Narrative: GENERAL: In general she is comfortable at rest this morning. HEENT: Exam within normal limits. NECK: Supple without jugular vein distention. The carotid upstroke is normal without bruits. BACK: Exam normal. LUNGS: Clear. HEART: Regular rate and rhythm. ABDOMEN: Benign without organomegaly or tenderness. EXTREMITIES: No edema. NEUROLOGIC: Exam normal. SKIN: Unremarkable. Data 08/20/22 04:51 08/20/22 04:51 Micro: Microbiology 08/19/22 12:35 Urine Culture - Preliminary Urine,Clean Catch Gram Negative Rods A&P Assessment and plan (1) COPD (chronic obstructive pulmonary disease): (2) Tobacco abuse: (3) Peripheral arterial disease: (4) Dyslipidemia: (5) Essential hypertension: (6) Cardiomyopathy: (7) Acute systolic CHF (congestive heart failure): (8) COVID-19: (9) Elevated troponin: (10) Retained ureteral stent: Plan For now we will have to treat her underlying organic heart disease medically since there are no access sites readily available. We will continue the Plavix, beta-amado, statin, aspirin. I will add a long-acting nitrate and change her over to Lasix by mouth. Options for access would be to use the brachial artery or have surgery do a cutdown if that becomes necessary. I prefer to try to treat her medically first. Given her other underlying medical problems and evidence of peripheral arterial disease she most certainly has coronary artery disease. Her heart failure seems to be under better control. Once the Imdur is added and if her blood pressure allows an GRAYSON inhibitor or angiotensin receptor amado would be appropriate as well. Attestations Medical Necessity Statement*: Hospitalization for congestive heart failure and COPD exacerbation. Coding Level of Care Code Acute Overedge Machine Operator for [facility] Diagnoses COPD (chronic obstructive pulmonary disease) J44.9 Tobacco abuse Z72.0 Peripheral arterial disease I73.9 Dyslipidemia E78.5 Essential hypertension I10 Cardiomyopathy I42.9 Acute systolic CHF (congestive heart failure) I50.21 COVID-19 U07.1 Elevated troponin R77.8 Retained ureteral stent Z96.0
[2022-08-21] MEDS: budesonide 0.5 mg/2 mL Neb INHALATION ×2 (08:48→20:43)
[2022-08-21] MEDS: aspirin 81 mg EC Tablet PO (09:18)
[2022-08-21] MEDS: isosorbide mononitrate ER 30 mg Tablet PO (09:18)
[2022-08-21] MEDS: metoprolol tartrate 50 mg Tablet PO ×2 (09:18→17:13)
[2022-08-21] MEDS: FUROsemide 40 mg Tablet PO ×2 (09:18→16:56)
[2022-08-21] MEDS: clopidogrel 75 mg Tablet PO (09:18)
--- NOTE | 2022-08-21 16:16 | PM.PN ---
Subjective Subjective: Patient was seen and examined this morning she was complaining of mild shortness of breath, denied any chest pain. Medications: Medication Review Details: Generic Name Dose Route Start Last Admin Trade Name Deena PRN Reason Stop Dose Admin Albuterol/Ipratrop ium 3 ml 08/19/22 20:00 08/21/22 13:32 Ipratropium-Albu terol 3 Ml Neb INHALATION 3 ml Q6H.RESP KORTNEY Administration Aspirin 81 mg 08/20/22 09:00 08/21/22 09:18 Aspirin 81 Mg Ec Tablet PO 81 mg DAILY KORTNEY Administration Atorvastatin Calci um 40 mg 08/19/22 21:00 08/20/22 21:18 Atorvastatin 40 Mg Tablet PO 40 mg BEDTIME KORTNEY Administration Budesonide 0.5 mg 08/19/22 20:00 08/21/22 08:48 Budesonide 0.5 M g/2 Ml Neb INHALATION 0.5 mg BID.RESPIRATORY S CH Administration Clopidogrel Bisulf ate 75 mg 08/20/22 09:00 08/21/22 09:18 Clopidogrel 75 M g Tablet PO 75 mg DAILY KORTNEY Administration Enoxaparin Sodium 40 mg 08/19/22 16:06 08/20/22 16:58 Enoxaparin 40 Mg /0.4 Ml Syringe SUBCUT 40 mg Q24H KORTNEY Administration Furosemide 40 mg 08/21/22 08:00 08/21/22 09:18 Furosemide 40 Mg Tablet PO 40 mg BID@08,16 KORTNEY Administration Sodium Chloride 1,000 mls @ 100 m ls/hr 08/21/22 07:50 08/21/22 09:18 Sodium Chloride 0.9% IV Not Given .Q10H KORTNEY Isosorbide Mononit rate 30 mg 08/21/22 09:00 08/21/22 09:18 Isosorbide [place] itrate Er 30 Mg Ta blet PO 30 mg DAILY KORTNEY Administration Metoprolol Tartrat e 50 mg 08/19/22 18:00 08/21/22 09:18 Metoprolol Tartr ate 50 Mg Tablet PO 50 mg BID KORTNEY Administration Non-Formulary Medi cation 1 gm 08/19/22 18:00 08/21/22 09:20 Methenamine [place] urate PO Not Given BID [facility] Vitals/I&O/Wt Last Vital Signs Temp 97.4 F L 08/21/22 04:00 Pulse 82 08/21/22 15:35 Resp 23 H 08/21/22 15:32 BP 134/59 08/21/22 15:32 Pulse Ox 98 08/21/22 15:32 O2 Del Method 08/21/22 13:33 O2 Flow Rate 98 08/21/22 04:00 08/21/22 08/21/22 08/21/22 06:59 14:59 22:59 Intake Total 720 / 720 Output Total 250 / 1600 Balance -250 / -880 720 / 720 Weight last 48 hrs Weight 57.294 kg Physical Exam Resp: COMMON NORMALS: normal respiratory effort, No retractions, No use of accessory muscles and clear to auscultation bilaterally EFFORT & INSPECTION: Yes symmetric chest movement AUSCULTATION: clear to auscultation bilaterally Cardio: COMMON NORMALS: regular rate, regular rhythm, S1 normal heart sound present, S2 normal heart sound present, No gallops present (Cardio), No murmurs present (Cardio), No rub (Cardio) and Peripheral pulses 2+ throughout RATE: regular rate RHYTHM: regular rhythm HEART SOUNDS: S1 normal heart sound present and S2 normal heart sound present PERIPHERAL PULSES: Peripheral pulses 2+ throughout GI: COMMON NORMALS: Normal to inspection, nondistended, normoactive bowel sounds present, Soft to palpation, non-tender, No hepatosplenomegaly present and no masses AUSCULTATION: Yes normoactive bowel sounds PALPATION: Yes Soft to palpation and Yes No hepatosplenomegaly present RECTAL EXAM: deferred Extremity: COMMON NORMALS: no clubbing, cyanosis or edema and no pedal edema Data 08/20/22 04:51 08/20/22 04:51 Micro: Microbiology 08/19/22 12:35 Urine Culture - Preliminary Urine,Clean Catch Gram Negative Rods A&P Assessment and plan (1) Acute systolic CHF (congestive heart failure): Patient appears to present with acute congestive heart failure, systolic. Chest x-ray demonstrates some interstitial changes, likely edema. Obtain limited echo. Previous echocardiogram demonstrated reduced EF of 45%, some wall motion abnormality inferiorly. EKG does demonstrate some flipped T waves inferiorly today. This was not present in April. Agree with Lasix given in the emergency department, continue every 12 hours Check troponin on admission, and 2-hour troponin. Consider 6-hour if elevating Cardiology was potentially going to perform an angiogram as an outpatient soon. Given the concern for admission for acute systolic heart failure will involve them now. Currently on Plavix, aspirin, statin, beta-amado. (2) Hypoxia: Appears to be secondary to congestive heart failure (3) Emphysema lung: Patient with known COPD Continue DuoNeb Budesonide No evidence currently of acute exacerbation. I believe her breathing difficulties secondary to congestive heart failure. (4) Retained ureteral stent: Sugey is planning an exchange sometime in the near future Recent urine culture July and demonstrated ESBL. Repeat urinalysis in case she becomes symptomatic care. Discussed briefly with urology. As long as she is asymptomatic, he does expect her bacteriuria to clear with the foreign body(stent) in. He would not treat the infection unless she becomes symptomatic. Plan 76 year old female with PMHx of PAD s/o right sided femoro-popliteal bypass several years back, h/o TIA, recent stroke (04/2022- MRI:?Subacute lacunar infarct RIGHT wolfe radiata),??HLD, arthritis uses a walker, emphysema and former smoker, COVID-19 in June , recent history of NSTEMI, heart failure with reduced ejection fraction, came in with chief complaint of worsening shortness of breath, she was admitted for the management of: Assessment: Decompensated heart failure with reduced ejection fraction History of COPD History of CVA History of peripheral artery disease History of TIA CKD stage III History of ureteral stent: Follow urology as an outpatient: Plan is for a stent exchange sometime next week. History of cervical cancer s/p radical hysterectomy Plan: X-ray chest done on admission has shown chronic changes, possible interstitial edema, no pulm vascular congestion. 2D echo: Mild global hypokinesia, with LVEF of 40% proBNP 22180 On Lasix 40 PO BID Continue DuoNebs, budesonide inhaler Continue aspirin Plavix statin, Imdur, beta-amado Monitor and output charting Monitor electrolytes Monitor daily weight Patient went for cardiac cath: Procedure had to be aborted due to poor access.Current plan is medical management. Patient was scheduled for outpatient cath, given her recent history of NSTEMI. Cardiology on board: CODE STATUS: Full code DVT prophylaxis: On Lovenox Attestations Medical Necessity Statement*: Patient is in hospital for cardiac medication optimization. Coding Level of Care Code Acute Web Site Administrator for Chg Fwd Diagnoses Acute systolic CHF (congestive heart failure) I50.21 Hypoxia R09.02 Emphysema lung J43.9 Retained ureteral stent Z96.0
[2022-08-21] MEDS: enoxaparin 40 mg/0.4 mL Syringe SUBCUT (16:55)
[2022-08-21] MEDS: atorvastatin 40 mg Tablet PO (21:00)
[2022-08-22] VITALS (11 sets, daily range): BP systolic 116–147; BP diastolic 55–82; PULSE 67–95; RESP 16–23; TEMP 36.4–36.6; O2SAT 95–99
[2022-08-22] MEDS: ipratropium-albuterol 3 mL Neb INHALATION ×3 (01:39→13:54)
[2022-08-22] MEDS: budesonide 0.5 mg/2 mL Neb INHALATION (08:35)
[2022-08-22] MEDS: FUROsemide 40 mg Tablet PO (08:46)
[2022-08-22] MEDS: aspirin 81 mg EC Tablet PO (08:46)
[2022-08-22] MEDS: isosorbide mononitrate ER 30 mg Tablet PO (08:46)
[2022-08-22] MEDS: metoprolol tartrate 50 mg Tablet PO (08:46)
[2022-08-22] MEDS: clopidogrel 75 mg Tablet PO (08:47)
--- NOTE | 2022-08-22 10:06 | PC.SOCIAL ---
Pg 2 IMM Explained to pt Pg 2 IMM. No questions voiced. Provided pt a copy. Initialed, dated, & timed a copy & placed in chart.
--- NOTE | 2022-08-22 11:00 | P.DS_ITS ---
Discharge Providers Date of Admission: 08/19/22 15:46 Date of Discharge: September 19, 2022 Attending Provider at Admission: Arthur Polk MD Attending Provider at Discharge: Camelia Moore MD Primary Care Provider: Catalino Sanders MD Diagnoses at Discharge Discharge Diagnosis (1) Acute systolic CHF (congestive heart failure): Status: Acute (2) Cardiomyopathy: Status: Acute (3) Peripheral arterial disease: Status: Inactive (4) Essential hypertension: Status: Inactive (5) Dyslipidemia: Status: Inactive (6) COPD (chronic obstructive pulmonary disease): Status: Resolved (7) Tobacco abuse: Status: Inactive (8) Retained ureteral stent: Status: Inactive Reason for Visit Reason for Visit: SOB Hospital Course Hospital Course 76 year old female with PMHx of PAD s/o right sided femoro-popliteal bypass several years back, h/o TIA, recent stroke (04/2022- MRI:?Subacute lacunar infarct RIGHT wolfe radiata),??HLD, arthritis uses a walker, emphysema and former smoker, COVID-19 in June , recent history of NSTEMI, heart failure with reduced ejection fraction, came in with chief complaint of worsening shortness of breath, she was admitted for the management of Decompensated heart failure with reduced ejection fraction. X-ray chest done on admission showed possible interstitial edema, no pulm vascular congestion. 2D echo: Mild global hypokinesia, with LVEF of 40%, proBNP 73059 treated with Lasix 40 PO? BID and DuoNebs, budesonide inhaler Continued aspirin Plavix statin, Imdur, beta-amado Patient went for cardiac cath: Procedure had to be aborted due to poor access.Current plan is to continue medical management. cardiology was consulted during admission. pt being discharged today in stable optimized condition Physical Exam Narrative: General: No acute distress, AO x3 HEENT: PERRLA, pupils bilaterally equal and reactive, pallors not present Chest: Normal vesicular breath sounds, no added sounds, equal good air entry bilaterally CVS: S1-S2 regular, no murmurs, no tachycardia, no gallops, no rubs Abdomen: Soft, nontender, no organomegaly, bowel sounds present Neuro: No focal deficits, no facial deformity, AO x3, power 5/5 in all limbs Discharge Data Studies Completed and Pending Completed Studies During Hospitalization Category Date Time Status XR chest 1V portable [id number] Stat Exams 08/19/22 08:16 Completed CV. echo limited [id number] Routine Ultrasound 08/19/22 11:37 Completed Radiology Impressions Chest X-Ray 08/19/22 08:16 Impression: 1. Chronic interstitial lung disease. 2. Atherosclerosis. Laboratory Results WBC 4.1 10^3/uL (4.0-10.0) 08/20/22 04:51 RBC 4.18 10^6/uL (4.1-5.3) 08/20/22 04:51 Hgb 13.1 g/dL (11.5-15.3) 08/20/22 04:51 Hct 40.7 % (37.0-47.0) 08/20/22 04:51 MCV 97.4 fl (81-99) 08/20/22 04:51 MCH 31.3 pg (28.0-34.0) 08/20/22 04:51 MCHC 32.2 g/dL (30.0-36.0) 08/20/22 04:51 RDW 13.5 % (12.1-15.1) 08/20/22 04:51 Plt Count 183 10^3/cmm (130-400) 08/20/22 04:51 MPV 10.6 fL (7.4-10.4) H 08/20/22 04:51 Neut % (Auto) 48.4 % 08/20/22 04:51 Lymph % (Auto) 39.0 % 08/20/22 04:51 Desha % (Auto) 8.4 % 08/20/22 04:51 Eos % (Auto) 3.0 % 08/20/22 04:51 Baso % (Auto) 1.0 % 08/20/22 04:51 Neut # (Auto) 1.96 10^3/uL (1.8-7.7) 08/20/22 04:51 Lymph # (Auto) 1.6 10^3/uL (0.8-4.8) 08/20/22 04:51 Desha # (Auto) 0.3 10^3/uL (0.2-0.9) 08/20/22 04:51 Eos # (Auto) 0.1 10^3/uL (0.0-0.8) 08/20/22 04:51 Baso # (Auto) 0.0 10^3/uL (0.0-0.1) 08/20/22 04:51 Nucleated RBC % (auto) 0 % 08/20/22 04:51 Nucleated RBCs # 0.0 /100WBC 08/20/22 04:51 D-Dimer 1.08 ug/mIFEU (0-0.59) H 08/19/22 09:30 Sodium 137 mmol/L (136-145) 08/20/22 04:51 Potassium 3.5 mmol/L (3.5-5.1) 08/20/22 04:51 Chloride 102 mmol/L (98-107) 08/20/22 04:51 Carbon Dioxide 23 mmol/L (22-29) 08/20/22 04:51 Anion Gap 15.5 (5-19) 08/20/22 04:51 BUN 19 mg/dL (8-23) 08/20/22 04:51 Creatinine 1.3 mg/dL (0.5-0.9) H 08/20/22 04:51 GFR Calculation Not Reportable 08/20/22 04:51 Glucose 93 mg/dL (65-115) 08/20/22 04:51 POC Glucose 125 mg/dL (70-110) H 08/19/22 20:09 Calculated Osmolality 286 mOsm/kg (285-295) 08/20/22 04:51 Calcium 9.8 mg/dL (8.5-10.5) 08/20/22 04:51 Magnesium 2.1 mg/dL (1.7-2.3) 08/20/22 04:51 Total Bilirubin 1.0 mg/dL (0.15-1.2) 08/20/22 04:51 AST 11 U/L (0-32) 08/20/22 04:51 ALT 7 U/L (0-33) 08/20/22 04:51 Alkaline Phosphatase 108 U/L (35-105) H 08/20/22 04:51 Troponin T Gen 5 ng/L 42 ng/L (0-10) H 08/19/22 11:45 NT-Pro-B Natriuret Pep 83498 pg/mL (0-450) H 08/19/22 09:30 Total Protein 7.2 g/dL (6.6-8.7) 08/20/22 04:51 Albumin 3.8 g/dL (3.5-5.2) 08/20/22 04:51 Globulin 3.4 g/dL (1.3-4.6) 08/20/22 04:51 Urine Color Colorless (Yellow) 08/19/22 12:35 Urine Appearance Clear (CLEAR) 08/19/22 12:35 Urine pH 6 (5-7) 08/19/22 12:35 Ur Specific [place] 1.005 (1.005-1.030) 08/19/22 12:35 Urine Protein Neg (Negative) 08/19/22 12:35 Urine Glucose (UA) Norm (Normal) 08/19/22 12:35 Urine Ketones Negative (Negative) 08/19/22 12:35 Urine Blood Neg (Negative) 08/19/22 12:35 Urine Nitrate Negative (Negative) 08/19/22 12:35 Urine Bilirubin Neg (Negative) 08/19/22 12:35 Urine Urobilinogen Norm mg/dL (Negative) 08/19/22 12:35 Ur Leukocyte Esterase 1+ (Negative) H 08/19/22 12:35 Urine RBC 0-4 /hpf (0-2) H 08/19/22 12:35 Urine WBC 0-4 /hpf (0-5) H 08/19/22 12:35 Ur Squamous Epith Cells 0-4 /hpf (0-5) H 08/19/22 12:35 Amorphous Sediment Not Reportable 08/19/22 12:35 Urine Bacteria 2+ /hpf (NONE) H 08/19/22 12:35 Influenza Type A Ag negative (Negative) 08/19/22 08:42 Influenza Type B Ag negative (Negative) 08/19/22 08:42 Vitals Last Vital Signs Temp 97.6 F 08/22/22 15:52 Pulse 85 08/22/22 15:52 Resp 23 H 08/22/22 15:52 BP 147/82 08/22/22 15:52 Pulse Ox 99 08/22/22 15:52 O2 Del Method 08/22/22 13:54 O2 Flow Rate 98 08/21/22 04:00 Discharge Plan Discharge Patient Disposition: Home Condition: Stable Prescriptions: New isosorbide mononitrate 30 mg Tablet Extended Release 24 Hr 30 mg PO DAILY 30 Days Qty: 30 0RF Continued acetaminophen [Tylenol] 325 mg tablet 325 mg PO QID PRN (Reason: Pain) multivitamin [One Daily Multivitamin] Tablet 1 tab PO DAILY Anoro Ellipta 62.5-25 mcg/actuation blister with device 1 inh inhalation DAILY 30 Days Qty: 60 6RF fluticasone propionate [Flonase Allergy Relief] 50 mcg/actuation spray,suspe nsion 1 spray intranasal DAILY Rx Instructions: administer into each nostril methenamine hippurate 1 gram tablet 1 g PO BID Qty: 60 12RF Rx Instructions: Take 1000 mg of Vitamin C with each dose of Methenamine clopidogrel 75 mg tablet 75 mg PO DAILY metoprolol tartrate 50 mg tablet 50 mg PO BID ascorbic acid (vitamin C) [Vitamin C] 1,000 mg Tablet 1,000 mg PO DAILY atorvastatin 40 mg Tablet 40 mg PO BEDTIME Qty: 60 0RF aspirin 81 mg Tablet,Delayed Release (Dr/Ec) 81 mg PO DAILY Qty: 30 0RF Changed furosemide 20 mg tablet 40 mg PO BID 15 Days Qty: 0 0RF Discharge Orders: Discharge Order (Routine); Ordered 08/22/22 Ordered By: Camelia Moore Referrals: Bianca Lawrence FNP [Nurse Practitioner] - 1 week Catalino Sanders MD [Primary Care Provider] - Discharge Diet: Cardiac Discharge Activity: Resume usual activity Patient Instructions: Isosorbide Mononitrate (By mouth), COPD (Chronic Obst ructive Pulmonary Disease) (DC), Opioid Safety Discharge Attestations Time Spent in Discharge Care*: greater than 30 min Quality Metrics Clinical Quality Measures [ No reported AMI, CVA or VTE this stay] Coding Level of Care Code Acute Chg FW DC note Diagnoses Acute systolic CHF (congestive heart failure) I50.21 Cardiomyopathy I42.9 Peripheral arterial disease I73.9 Essential hypertension I10 Dyslipidemia E78.5 COPD (chronic obstructive pulmonary disease) J44.9 Tobacco abuse Z72.0 Retained ureteral stent Z96.0
--- NOTE | 2022-08-22 13:06 | P.PN_ITS ---
Subjective Subjective: She denies any CP or SOB. She is eager to go home. HR in high 40's -50's at night. Medications: Reviewed: Yes Vitals/I&O/Wt Last Vital Signs Temp 97.7 F 08/22/22 07:02 Pulse 70 08/22/22 11:36 Resp 20 H 08/22/22 11:36 BP 116/60 08/22/22 11:36 Pulse Ox 99 08/22/22 11:36 O2 Del Method 08/22/22 08:37 O2 Flow Rate 98 08/21/22 04:00 08/21/22 08/22/22 08/22/22 22:59 06:59 14:59 Intake Total 240 / 960 200 / 1160 720 / 720 Output Total 200 / 200 Balance 240 / 960 200 / 1160 520 / 520 Physical Exam Narrative: GENERAL: Averagely built and averagely nourished, coughing through out the exam HEENT: Extraocular movement intact. No pallor or icterus. NECK: central trachea, No JVD, No carotid bruit. CARDIOVASCULAR SYSTEM: S1-S2 regular. No murmur rubs or gallops. RESPIRATORY SYSTEM: Chest clear to auscultation. No wheezes or rubs heard. No use of accessory muscles. ABDOMEN: Soft, nontender and nondistended. Normal bowel sounds present. EXTREMITIES: No cyanosis or edema. No signs of chronic venous insufficiency. SECURITIES UNDERWRITER: Patient is alert oriented ?3. No focal neurological deficits. Data 08/20/22 04:51 08/20/22 04:51 Micro: Microbiology 08/19/22 12:35 Urine Culture - Final Urine,Clean Catch Escherichia coli esbl A&P Assessment and plan (1) Acute systolic CHF (congestive heart failure): appears fairly compensated on exam (2) Cardiomyopathy: LHC was attempted -Access could not be obtained -Decision was made to continue with medical management. -continue metoporlol -will add ACEI/ARB as an outpatient. -BP/HR log x 1-2 weeks -f/u in 1-2 weeks in [facility] (3) Peripheral arterial disease: (4) Essential hypertension: (5) Dyslipidemia: (6) COPD (chronic obstructive pulmonary disease): (7) Tobacco abuse: (8) Retained ureteral stent: Attestations Medical Necessity Statement*: Stable to be discharged Time Spent in Patient Care: 16 - 35 minutes Coding Level of Care Code Acute Eligibility Specialist for Marianog Fwd Diagnoses Acute systolic CHF (congestive heart failure) I50.21 Cardiomyopathy I42.9 Peripheral arterial disease I73.9 Essential hypertension I10 Dyslipidemia E78.5 COPD (chronic obstructive pulmonary disease) J44.9 Tobacco abuse Z72.0 Retained ureteral stent Z96.0
--- NOTE | 2022-08-22 15:54 | PC.NURSE ---
Discharge Note Patient discharged to home via w/c accompanied by son. Discharge instructions reviewed with patient and/or account representative. Mobile pharmacy medications and/or prescriptions provided. Belongings/home medications returned.
== END 2022-08-22 15:54 | disposition home or self-care (01) | DRG 291 ==
LOC: ER 13:09 → CSU 15:47
PROVIDERS: Internal Medicine Cardiovascular Disease; Admitting Provider Internal Medicine; Emergency Provider Family Medicine; PCP Family Medicine; Visit Provider Student in an Organized Health Care Education/Training Program
PROC: 04JY3ZZ Inspection of Lower Artery, Percutaneous Approach (ICD-10-PCS; principal; 2022-08-21 07:00)
DX: I13.0 Hypertensive heart and chronic kidney disease with heart failure and stage 1 through stage 4 chronic kidney disease, or unspecified chronic kidney disease (principal); I50.23 Acute on chronic systolic (congestive) heart failure; N18.30 Chronic kidney disease, stage 3 unspecified; R77.8 Other specified abnormalities of plasma proteins; I42.9 Cardiomyopathy, unspecified; I73.9 Peripheral vascular disease, unspecified; E78.5 Hyperlipidemia, unspecified; J43.9 Emphysema, unspecified; F17.200 Nicotine dependence, unspecified, uncomplicated; Z96.0 Presence of urogenital implants; Z98.890 Other specified postprocedural states; Z86.73 Personal history of transient ischemic attack (TIA), and cerebral infarction without residual deficits; Z86.16 Personal history of COVID-19; Z79.02 Long term (current) use of antithrombotics/antiplatelets; Z79.82 Long term (current) use of aspirin; Z96.641 Presence of right artificial hip joint; Z90.710 Acquired absence of both cervix and uterus; I25.2 Old myocardial infarction; M19.90 Unspecified osteoarthritis, unspecified site; Z92.21 Personal history of antineoplastic chemotherapy; Z92.3 Personal history of irradiation; Z85.41 Personal history of malignant neoplasm of cervix uteri
CPT/HCPCS: 36415; 36416; 71045; 80053; 81001; 82962; 83735; 83880; 84484; 85025; 85378; 87077; 87086; 87186; 87804; 93005; 93308; 94640; 96372; 96374; 99152; 99153; 99285; C1769; C1894; J1644; J1650; J1940; J2250; J3010; J3490; J7030; J7626; Q0163

== ENCOUNTER 2022-09-24 19:58 | Emergency (ER) | payer MEDICARE, MEDICAID, SELFPAY ==
[2022-09-24 20:00] VITALS: BP 142/72; PULSE 75; RESP 18; TEMP 36.6; O2SAT 94; BMI 23.2
[2022-09-24 20:06] VITALS: BP 142/72; PULSE 73; RESP 21; O2SAT 95
--- NOTE | 2022-09-24 20:11 | ED_ITS ---
Documented by User: Isreal Rasmussen MD 09/24/22 22:43 HPI - Chest Pain General: Chief Complaint: Chest Pain Stated Complaint: CP Time Seen by Provider: 09/24/22 20:01 Source: patient and EMS Mode of arrival: EMS Limitations: no limitations History of Present Illness: See nursing assessment. Patient with complaints of left chest pain that radiated to her left jaw with associated mild shortness of breath that started at 7 PM tonight. Patient states that she took baby aspirin after onset of pain and pain resolved by the time EMS arrived to her home. She states she has mild shortness of breath and EMS stated that her pulse oximetry was 93% on room air. Patient was in the hospital approximately 1 month ago with similar problems and congestive heart failure. Left heart cath was attempted through radial artery and left femoral arteries. However, director of instrumental music was unable to pass guidewire for heart cath. Patient scheduled for appointment at the end of this month with director of instrumental music for different access for heart cath. Patient states she started having problems with her heart in July after jane COVID. She states that she did not have any known co ronary artery disease at that time. She denies any diabetes. She does have a history of hypertension. She states she took 2 baby aspirin today. She is also on Plavix lisinopril metoprolol and atorvastatin. She is allergic to morphine. She still smokes cigarettes. She states she has no symptoms now. Capillary blood sugar prior to arrival was 126 according to EMS. EKG from EMS showed normal sinus rhythm with a heart rate of 90 with nonspecific changes throughout. Normal axis. Associated symptoms: Reports dyspnea; Deny abdominal pain, fever(s), nausea, palpitations, syncope or vomiting Review of Systems 2 Const: Denies: fever(s) or chills Eyes: Denies: change in vision ENMT: Denies: throat pain Card: Reports: chest pain; Denies: palpitations, irregular heart rhythm, edema or syncope Resp: Reports: dyspnea; Denies: non-productive cough or wheezing GI: Denies: abdominal pain, nausea or vomiting : Denies: flank pain Musc: Denies: neck pain or back pain Skin/Breast: Denies: rash or pruritus Neuro: Denies: headache(s) or numbness in extremities Psych: Denies: anxiety Elia/Lymph: Denies: enlarged lymph nodes PFSH ED PFSH: Medical History Cardiomyopathy COPD (chronic obstructive pulmonary disease) Dyslipidemia Elevated troponin Elevated troponin I level Emphysema lung Essential hypertension Extrinsic ureteral obstruction Hypoxia NSTEMI (non-ST elevated myocardial infarction) Peripheral arterial disease Retained ureteral stent Syncope and collapse Tobacco abuse Urinary incontinence Surgical History H/O arthroscopic knee surgery bilateral H/O oral surgery H/O shoulder surgery H/O total hip arthroplasty right H/O: H/O: hysterectomy History of colon surgery Family History Mother , at age 79 Hypertension Peripheral artery disease Diabetes Father , at age 47 Cancer pancreatic and lung Social History Smoking and tobacco status: current some day smoker (quitting) cigarettes Packs smoked per day: 0.5 Years cigarettes smoked: 60 [ Other cigarette details: Hx of 1 PPD x 50 Years] Second hand smoke exposure: Yes Smoking risk assessment/counseling performed?: Yes Alcohol intake: never Lives independently: Yes Housing: Apartment Marital status: Legally Current occupational status: retired and disabled History of recent travel: No Current gender identity: Female Physical Exam Const: COMMON NORMALS: no acute distress, patient oriented x3, no limitations and well nourished GENERAL APPEARANCE: cooperative OTHER: Thin HENMT: COMMON NORMALS: normocephalic and atraumatic HEAD & SCALP: normocephalic and atraumatic FACE & SINUS: normal facial exam Eye: COMMON NORMALS: EOMs intact bilaterally Neck/C-Spine: COMMON NORMALS: full ROM, no lymphadenopathy, supple and no meningeal signs GENERAL: Yes normal visual inspection Lymph: LYMPHATIC: no lymphadenopathy noted Chest: COMMONS NORMALS: normal inspection of the chest and normal palpation of entire chest wall CHEST: No Ecchymosis present and No rash Resp: COMMON NORMALS: normal respiratory effort, No retractions and clear to auscultation bilaterally EFFORT & INSPECTION: No respiratory distress AUSCULTATION: clear to auscultation bilaterally Cardio: COMMON NORMALS: regular rate, regular rhythm and Peripheral pulses 2+ throughout JUGULAR VENOUS DISTENTION: no JVD RATE: regular rate RHYTHM: regular rhythm PERIPHERAL PULSES: Peripheral pulses 2+ throughout GI: COMMON NORMALS: Normal to inspection, nondistended, normoactive bowel sounds present and non-tender : COMMON NORMALS: Yes no CVA tenderness BLADDER/KIDNEY EXAM: Yes no CVA tenderness Back/Pelvis: COMMON NORMALS: no CVA tenderness Extremity: COMMON NORMALS: normal to inspection, full ROM and capillary refill normal Neuro: COMMON NORMALS: patient oriented x3, CN's II-XII intact bilaterally, no focal motor deficits and no sensory deficits noted MENINGEAL SIGNS: Yes no meningeal signs Psych: COMMON NORMALS: mental status grossly normal and Normal thought process present THOUGHT PROCESS: Normal thought process present Skin: COMMON NORMALS: no rashes or lesions noted and no wounds GENERAL SKIN EXAM: no rashes or lesions noted Course Vital Signs: Vital signs: Vital Signs Temperature 97.8 F 09/24/22 20:00 Pulse Rate 65 09/24/22 23:00 Respiratory Rate 16 09/24/22 23:00 Blood Pressure 142/83 09/24/22 23:00 Pulse Oximetry 100 09/24/22 23:00 Oxygen Delivery Me thod 09/24/22 23:00 MDM - Chest Pain Medical Decision Making Possible unstable angina. Chest pain. Shortness of breath. Telemetry shows heart rate of 57. Blood pressure 142/72. Oxygen saturation 94% on 2 L by nasal cannula. First troponin is 26. Patient's last troponin was 08/19/2022 then was 42. Due to the elevated BNP will give a small amount of Lasix to see if this helps her symptoms. She denies any shortness of breath or chest pain at this time. 2300: care turned over to Dr. Leary at shift change. Medical Records Assessment and plan (1) Acute systolic CHF (congestive heart failure): appears fairly compensated on exam (2) Cardiomyopathy: ?LHC was attempted -Access could not be obtained -Decision was made to continue with medical management. -continue metoporlol -will add ACEI/ARB as an outpatient. -BP/HR log x 1-2 weeks -f/u in 1-2 weeks in [facility] (3) Peripheral arterial disease: (4) Essential hypertension: (5) Dyslipidemia: (6) COPD (chronic obstructive pulmonary disease): (7) Tobacco abuse: (8) Retained ureteral stent: Attestations E Medical Necessity Statement*:?? Stable to be discharged Time Spent in Patient Care:?? 16 - 35 minutes Coding Level of Care Code Acute Money Laundering Investigator for Chg Fwd Diagnoses Acute systolic CHF (congestive heart failure)? I50.21 Cardiomyopathy? I42.9 Peripheral arterial disease? I73.9 Essential hypertension? I10 Dyslipidemia? E78.5 COPD (chronic obstructive pulmonary disease)? J44.9 Tobacco abuse? Z72.0 Retained ureteral stent? Z96.0 Dictated By: Meera Buckley MD Signed By: Meera Buckley MD Signed Date/Time: 08/22/221929 Lab Data 09/24/22 20:52 09/24/22 20:52 Radiology Impressions Chest X-Ray 09/24/22 20:13 IMPRESSION: No acute findings. Laboratory Results WBC 4.2 10^3/uL (4.0-10.0) 09/24/22 20:52 RBC 3.71 10^6/uL (4.1-5.3) L 09/24/22 20:52 Hgb 11.5 g/dL (11.5-15.3) 09/24/22 20:52 Hct 37.2 % (37.0-47.0) 09/24/22 20:52 MCV 100.3 fl (81-99) H 09/24/22 20:52 MCH 31.0 pg (28.0-34.0) 09/24/22 20:52 MCHC 30.9 g/dL (30.0-36.0) 09/24/22 20:52 RDW 13.9 % (12.1-15.1) 09/24/22 20:52 Plt Count 171 10^3/cmm (130-400) 09/24/22 20:52 MPV 10.1 fL (7.4-10.4) 09/24/22 20:52 Neut % (Auto) 43.3 % 09/24/22 20:52 Lymph % (Auto) 41.4 % 09/24/22 20:52 [place] % (Auto) 10.0 % 09/24/22 20:52 Eos % (Auto) 4.1 % 09/24/22 20:52 Baso % (Auto) 1.0 % 09/24/22 20:52 Neut # (Auto) 1.81 10^3/uL (1.8-7.7) 09/24/22 20:52 Lymph # (Auto) 1.7 10^3/uL (0.8-4.8) 09/24/22 20:52 [place] # (Auto) 0.4 10^3/uL (0.2-0.9) 09/24/22 20:52 Eos # (Auto) 0.2 10^3/uL (0.0-0.8) 09/24/22 20:52 Baso # (Auto) 0.0 10^3/uL (0.0-0.1) 09/24/22 20:52 Nucleated RBC % (auto) 0 % 09/24/22 20:52 Nucleated RBCs # 0.0 /100WBC 09/24/22 20:52 APTT 21.5 SECONDS (23.9-36.7) L 09/24/22 20:52 Sodium 138 mmol/L (136-145) 09/24/22 20:52 Potassium 3.8 mmol/L (3.5-5.1) 09/24/22 20:52 Chloride 105 mmol/L (98-107) 09/24/22 20:52 Carbon Dioxide 19 mmol/L (22-29) L 09/24/22 20:52 Anion Gap 17.8 (5-19) 09/24/22 20:52 BUN 18 mg/dL (8-23) 09/24/22 20:52 Creatinine 1.1 mg/dL (0.5-0.9) H 09/24/22 20:52 GFR Calculation Not Reportable 09/24/22 20:52 Glucose 86 mg/dL (65-115) 09/24/22 20:52 Calculated Osmolality 287 mOsm/kg (285-295) 09/24/22 20:52 Calcium 9.7 mg/dL (8.5-10.5) 09/24/22 20:52 Troponin T Baseline 26 ng/L (0-10) H 09/24/22 20:52 Troponin T 120 Minute 27.45 ng/L (0-10) H 09/24/22 23:04 Delta Troponin T 1.45 ABS# (0-10) 09/24/22 23:04 NT-Pro-B Natriuret Pep 47659 pg/mL (0-450) H 09/24/22 20:52 Imaging Data CXR: My impression: Nothing acute. No pneumothorax. No effusions or infiltrates. Radiologist's impression: PROCEDURE INFORMATION: Exam: XR Chest Exam date and time: 09/24/2022 8:18 PM Age: 76 years old Clinical indication: Sternal or substernal pain; Additional info: Chest pain TECHNIQUE: Imaging protocol: Radiologic exam of the chest. Views: 1 view. COMPARISON: CR XR chest 1V portable [id number] 08/19/2022 8:34 AM FINDINGS: Lungs: Changes of emphysema. Mild interstitial prominence in the lung bases is most likely chronic change. No consolidation. Pleural spaces: Unremarkable. No pleural effusion. No pneumothorax. Heart/Mediastinum: The heart size is upper normal. Bones/joints: [place] in the left humerus. XR/XR chest 1V portable [id number] IMPRESSION: No acute findings. ? Dictated By: Kvng Keys Signed By: Kvng Keys Signed Date/Time: 09/24/222058 EKG Data EKG 1: I personally reviewed and interpreted this EKG as follows: EKG interpretation date: 09/24/22 EKG interpretation time: 20:12 Prior EKG tracings: available for review (No change from 08/19/2022 EKG) Interpretation: Normal sinus rhythm with heart rate 74. LVH. Nonspecific ST-T changes. Normal axis. Normal AK interval, normal QT interval. Discharge Plan Discharge Patient Disposition: Home Clinical Impression: Chest pain Qualifiers: Chest pain type: unspecified Qualified Code(s): R07.9 - Chest pain, unspecified Condition: Stable Prescriptions: No Action acetaminophen [Tylenol] 325 mg tablet 325 mg PO QID PRN (Reason: Pain) multivitamin [One Daily Multivitamin] Tablet 1 tab PO DAILY Anoro Ellipta 62.5-25 mcg/actuation blister with device 1 inh inhalation DAILY 30 Days Qty: 60 6RF fluticasone propionate [Flonase Allergy Relief] 50 mcg/actuation spray,suspension 1 spray intranasal DAILY Rx Instructions: administer into each nostril methenamine hippurate 1 gram tablet 1 g PO BID Qty: 60 12RF Rx Instructions: Take 1000 mg of Vitamin C with each dose of Methenamine clopidogrel 75 mg tablet 75 mg PO DAILY metoprolol tartrate 50 mg tablet 50 mg PO BID furosemide 20 mg tablet 40 mg PO BID 15 Days Qty: 0 0RF ascorbic acid (vitamin C) [Vitamin C] 1,000 mg Tablet 1,000 mg PO DAILY atorvastatin 40 mg Tablet 40 mg PO BEDTIME Qty: 60 0RF aspirin 81 mg Tablet,Delayed Release (Dr/Ec) 81 mg PO DAILY Qty: 30 0RF Discharge Orders: Discharge ED (Routine); Ordered 09/24/22 Ordered By: Brit Leary Referrals: Catalino Sanders MD [Primary Care Provider] - 1-3 days Discharge Diet: Cardiac Discharge Activity: Increase activity as tolerated Patient Instructions: Chest Pain (ED) Activity Restrictions/Additional Instructions: Continue home medications as prescribed. Follow-up with your family doctor early this week. Follow-up with your director of instrumental music as scheduled. Coding Level of Care Code ED Money Laundering Investigator for Chg Fwd Exam Comprehensive Medical Decision Making Moderate Complexity Documented by User: Brit Leary MD 09/24/22 23:39 HPI - Chest Pain General: Chief Complaint: Chest Pain Stated Complaint: CP Time Seen by Provider: 09/24/22 20:01 [facility] ED PFSH: Medical History Cardiomyopathy COPD (chronic obstructive pulmonary disease) Dyslipidemia Elevated troponin Elevated troponin I level Emphysema lung Essential hypertension Extrinsic ureteral obstruction Hypoxia NSTEMI (non-ST elevated myocardial infarction) Peripheral arterial disease Retained ureteral stent Syncope and collapse Tobacco abuse Urinary incontinence Surgical History H/O arthroscopic knee surgery bilateral H/O oral surgery H/O shoulder surgery H/O total hip arthroplasty right H/O: H/O: hysterectomy History of colon surgery Family History Mother , at age 79 Hypertension Peripheral artery disease Diabetes Father , at age 47 Cancer pancreatic and lung Social History Smoking and tobacco status: current some day smoker (quitting) cigarettes Packs smoked per day: 0.5 Years cigarettes smoked: 60 [ Other cigarette details: Hx of 1 PPD x 50 Years] Second hand smoke exposure: Yes Smoking risk assessment/counseling performed?: Yes Alcohol intake: never Lives independently: Yes Housing: Apartment Marital status: Legally Current occupational status: retired and disabled History of recent travel: No Current gender identity: Female Course Vital Signs: Vital signs: Vital Signs Temperature 97.8 F 09/24/22 20:00 Pulse Rate 65 09/24/22 23:00 Respiratory Rate 16 09/24/22 23:00 Blood Pressure 142/83 09/24/22 23:00 Pulse Oximetry 100 09/24/22 23:00 Oxygen Delivery Me thod 09/24/22 23:00 MDM - Chest Pain Medical Decision Making Possible unstable angina. Chest pain. Shortness of breath. Telemetry shows heart rate of 57. Blood pressure 142/72. Oxygen saturation 94% on 2 L by nasal cannula. First troponin is 26. Patient's last troponin was 08/19/2022 then was 42. Due to the elevated BNP will give a small amount of Lasix to see if this helps her symptoms. She denies any shortness of breath or chest pain at this time. 2300: care turned over to Dr. Leary at shift change. Patient's 2-hour troponin is negative she has been chest pain-free here she is well-appearing here and stable for discharge she is to follow-up with her director of instrumental music return if worsening. Lab Data 09/24/22 20:52 09/24/22 20:52 Radiology Impressions Chest X-Ray 09/24/22 20:13 IMPRESSION: No acute findings. Laboratory Results WBC 4.2 10^3/uL (4.0-10.0) 09/24/22 20:52 RBC 3.71 10^6/uL (4.1-5.3) L 09/24/22 20:52 Hgb 11.5 g/dL (11.5-15.3) 09/24/22 20:52 Hct 37.2 % (37.0-47.0) 09/24/22 20:52 MCV 100.3 fl (81-99) H 09/24/22 20:52 MCH 31.0 pg (28.0-34.0) 09/24/22 20:52 MCHC 30.9 g/dL (30.0-36.0) 09/24/22 20:52 RDW 13.9 % (12.1-15.1) 09/24/22 20:52 Plt Count 171 10^3/cmm (130-400) 09/24/22 20:52 MPV 10.1 fL (7.4-10.4) 09/24/22 20:52 Neut % (Auto) 43.3 % 09/24/22 20:52 Lymph % (Auto) 41.4 % 09/24/22 20:52 [place] % (Auto) 10.0 % 09/24/22 20: Eos % (Auto) 4.1 % 09/24/22 20: Baso % (Auto) 1.0 % 09/24/22 20:52 Neut # (Auto) 1.81 10^3/uL (1.8-7.7) 09/24/22 20:52 Lymph # (Auto) 1.7 10^3/uL (0.8-4.8) 09/24/22 20:52 [place] # (Auto) 0.4 10^3/uL (0.2-0.9) 09/24/22 20:52 Eos # (Auto) 0.2 10^3/uL (0.0-0.8) 09/24/22 20:52 Baso # (Auto) 0.0 10^3/uL (0.0-0.1) 09/24/22 20:52 Nucleated RBC % (auto) 0 % 09/24/22: Nucleated RBCs # 0.0 /100WBC 09/24/22 20: APTT 21.5 SECONDS (23.9-36.7) L 09/24/22 20:52 Sodium 138 mmol/L (136-145) 09/24/22 20:52 Potassium 3.8 mmol/L (3.5-5.1) 09/24/22 20:52 Chloride 105 mmol/L (98-107) 09/24/22 20:52 Carbon Dioxide 19 mmol/L (22-29) L 09/24/22 20:52 Anion Gap 17.8 (5-19) 09/24/22 20:52 BUN 18 mg/dL (8-23) 09/24/22 20:52 Creatinine 1.1 mg/dL (0.5-0.9) H 09/24/22 20:52 GFR Calculation Not Reportable 09/24/22 20:52 Glucose 86 mg/dL (65-115) 09/24/22 20:52 Calculated Osmolality 287 mOsm/kg (285-295) 09/24/22 20:52 Calcium 9.7 mg/dL (8.5-10.5) 09/24/22 20:52 Troponin T Baseline 26 ng/L (0-10) H 09/24/22 20:52 Troponin T 120 Minute 27.45 ng/L (0-10) H 09/24/22 23:04 Delta Troponin T 1.45 ABS# (0-10) 09/24/22 23:04 NT-Pro-B Natriuret Pep 58445 pg/mL (0-450) H 09/24/22 20:52 Discharge Plan Discharge Patient Disposition: Home Clinical Impression: Chest pain Qualifiers: Chest pain type: unspecified Qualified Code(s): R07.9 - Chest pain, unspecified Condition: Stable Prescriptions: No Action acetaminophen [Tylenol] 325 mg tablet 325 mg PO QID PRN (Reason: Pain) multivitamin [One Daily Multivitamin] Tablet 1 tab PO DAILY Anoro Ellipta 62.5-25 mcg/actuation blister with device 1 inh inhalation DAILY 30 Days Qty: 60 6RF fluticasone propionate [Flonase Allergy Relief] 50 mcg/actuation spray,suspension 1 spray intranasal DAILY Rx Instructions: administer into each nostril methenamine hippurate 1 gram tablet 1 g PO BID Qty: 60 12RF Rx Instructions: Take 1000 mg of Vitamin C with each dose of Methenamine clopidogrel 75 mg tablet 75 mg PO DAILY metoprolol tartrate 50 mg tablet 50 mg PO BID furosemide 20 mg tablet 40 mg PO BID 15 Days Qty: 0 0RF ascorbic acid (vitamin C) [Vitamin C] 1,000 mg Tablet 1,000 mg PO DAILY atorvastatin 40 mg Tablet 40 mg PO BEDTIME Qty: 60 0RF aspirin 81 mg Tablet,Delayed Release (Dr/Ec) 81 mg PO DAILY Qty: 30 0RF Discharge Orders: Discharge ED (Routine); Ordered 09/24/22 Ordered By: Brit Leary Referrals: Catalino Sanders MD [Primary Care Provider] - 1-3 days Discharge Diet: Cardiac Discharge Activity: Increase activity as tolerated Patient Instructions: Chest Pain (ED) Activity Restrictions/Additional Instructions: Continue home medications as prescribed. Follow-up with your family doctor early this week. Follow-up with your director of instrumental music as scheduled. Coding Level of Care Code ED Money Laundering Investigator for Chg Fwd Exam Comprehensive Medical Decision Making Moderate Complexity
--- NOTE | 2022-09-24 20:13 | XRR_ITS ---
PROCEDURE INFORMATION: Exam: XR Chest Exam date and time: 09/24/2022 8:18 PM Age: 76 years old Clinical indication: Sternal or substernal pain; Additional info: Chest pain TECHNIQUE: Imaging protocol: Radiologic exam of the chest. Views: 1 view. COMPARISON: CR XR chest 1V portable [id number] 08/19/2022 8:34 AM FINDINGS: Lungs: Changes of emphysema. Mild interstitial prominence in the lung bases is most likely chronic change. No consolidation. Pleural spaces: Unremarkable. No pleural effusion. No pneumothorax. Heart/Mediastinum: The heart size is upper normal. Bones/joints: [place] in the left humerus. XR/XR chest 1V portable [id number] IMPRESSION: No acute findings.
[2022-09-24] MEDS: aspirin 81 mg Chew Tablet 162 MG PO (20:26)
[2022-09-24 20:57] LABS: Eosinophils # 0.2 10^3/uL (0.0-0.8); Eosinophils % 4.1 %; Hematocrit 37.2 % (37.0-47.0); Hemoglobin 11.5 g/dL (11.5-15.3); Lymphocytes # 1.7 10^3/uL (0.8-4.8); Lymphocytes % 41.4 %; Mean Corpuscular HGB Conc 30.9 g/dL (30.0-36.0); Mean Corpuscular Volume 100.3 fl (81-99); Mean Platelet Volume 10.1 fL (7.4-10.4); Monocytes # 0.4 10^3/uL (0.2-0.9); Neutrophils # 1.81 10^3/uL (1.8-7.7); Neutrophils % 43.3 %; Nucleated Red Blood Cells % 0 %; Platelet Count 171 10^3/cmm (130-400); Red Blood Count 3.71 10^6/uL (4.1-5.3); Red Cell Distribution Width 13.9 % (12.1-15.1); White Blood Count 4.2 10^3/uL (4.0-10.0)
[2022-09-24 21:06] VITALS: PULSE 78; RESP 30; O2SAT 96
[2022-09-24 21:18] LABS: Partial Thromboplastin Time 21.5 SECONDS (23.9-36.7)
[2022-09-24 21:27] LABS: Troponin(5th) Baseline 26 ng/L (0-10)
[2022-09-24 21:35] VITALS: BP 141/81; PULSE 65; RESP 30; O2SAT 95
[2022-09-24 21:35] LABS: Anion Gap 17.8 (5-19); Blood Urea Nitrogen 18 mg/dL (8-23); Calcium 9.7 mg/dL (8.5-10.5); Carbon Dioxide 19 mmol/L (22-29); Chloride 105 mmol/L (98-107); Glucose 86 mg/dL (65-115); NT Pro B Type Natriuretic Pept 11569 pg/mL (0-450); Osmolality Calculated 287 mOsm/kg (285-295); Potassium 3.8 mmol/L (3.5-5.1); Sodium 138 mmol/L (136-145)
[2022-09-24 22:00] VITALS: PULSE 57; RESP 26; O2SAT 95
[2022-09-24] MEDS: FUROsemide 10 mg/mL SDV 2mL 20 MG IVP (22:02)
--- NOTE | 2022-09-24 22:13 | ECG_ITS ---
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 Measurements Intervals [place] Rate: 74 P: 43 SD: 181 QRS: 69 QRSD: 97 T: -70 QT: 417 QTc: 465 Interpretive Statements SINUS RHYTHM ST DEVIATION AND MODERATE T-WAVE ABNORMALITY, CONSIDER LATERAL ISCHEMIA [-0.1+ mV T-WAVE IN I/aVL/V5/V6] ST DEVIATION AND MODERATE T-WAVE ABNORMALITY, CONSIDER INFERIOR ISCHEMIA [-0.1+ mV T-WAVE IN II/aVF] INTERPRETATION BASED ON A DEFAULT AGE OF 40 YEARS Compared to ECG 08/19/2022 08:23:16 T-wave abnormality now present Possible ischemia now present Left ventricular hypertrophy no longer present ST (T wave) deviation no longer present Electronically Signed On 09-25-2022 10:09:31 OFFICE BOOKKEEPER by Kishan Lozano M.D. [id number]
[2022-09-24 23:00] VITALS: BP 142/83; PULSE 65; RESP 16; O2SAT 100
--- NOTE | 2022-09-24 23:00 | PC.NURSE ---
Report from Han Flood. Pt resting quietly. Denies needs. VSS and recorded
[2022-09-24 23:27] LABS: Troponin 5 2HR 27.45 ng/L (0-10); Troponin 5 2HR Delta 1.45 ABS# (0-10)
== END 2022-09-24 23:45 | disposition home or self-care (01) ==
PROVIDERS: Family Medicine; Emergency Provider Emergency Medicine; PCP Family Medicine
DX: R07.9 Chest pain, unspecified (principal); Z79.82 Long term (current) use of aspirin; Z79.02 Long term (current) use of antithrombotics/antiplatelets; J44.9 Chronic obstructive pulmonary disease, unspecified; E78.5 Hyperlipidemia, unspecified; I10 Essential (primary) hypertension; I25.2 Old myocardial infarction
CPT/HCPCS: 36415; 71045; 80048; 83880; 84484; 85025; 85730; 93005; 96374; 99285; J1940

== ENCOUNTER → 2022-10-20 13:10 | Outpatient (BNVA) | payer MEDICARE, MEDICAID, SELFPAY | PROVIDERS: PCP Family Medicine; Visit Provider Internal Medicine Cardiovascular Disease | DX: I42.9 Cardiomyopathy, unspecified (principal); I11.0 Hypertensive heart disease with heart failure; I50.21 Acute systolic (congestive) heart failure; I25.10 Atherosclerotic heart disease of native coronary artery without angina pectoris; F17.210 Nicotine dependence, cigarettes, uncomplicated; I25.2 Old myocardial infarction | CPT/HCPCS: 99214 ==

== ENCOUNTER 2022-11-16 14:11 | Outpatient (CLI) | payer MEDICARE, MEDICAID, SELFPAY ==
--- NOTE | 2022-11-16 14:21 | XR_ITS ---
WS: [id number] KUB, AP view, 11/16/2022 Clinical Data: STONES Comparison: KUB, 07/26/2022 Findings: The right ureteral stent remains in good position. There are small calcifications overlying both kidn eys. There are surgical clips in the mid abdomen. The right hip arthroplasty is in good position. The re are sclerotic and cystic changes of the left femoral head consistent with aseptic necrosis. XR/XR KUB [id number] Impression: 1. No change in bilateral renal calcifications. 2. Right ureteral stent in good position.
== END 2022-11-16 14:12 | disposition home or self-care (01) ==
LOC: RAD 14:16
PROVIDERS: PCP Family Medicine; Visit Provider Urology
DX: N20.9 Urinary calculus, unspecified (principal); Z96.0 Presence of urogenital implants; N13.5 Crossing vessel and stricture of ureter without hydronephrosis; R82.81 Pyuria; I25.10 Atherosclerotic heart disease of native coronary artery without angina pectoris; I42.9 Cardiomyopathy, unspecified; R32 Unspecified urinary incontinence
CPT/HCPCS: 74018; 81003; 87077; 87086; 87186; 99214

== ENCOUNTER 2022-11-21 06:37 | Day surgery (SDC) | payer MEDICARE, MEDICAID, SELFPAY ==
[2022-11-18 08:58] VITALS: BMI 22.3
--- NOTE | 2022-11-18 09:45 | ANES.PREANE2 ---
Pre-Anesthetic Assessment Height/Weight: Height 1.55 m Weight 53.524 kg Preop Diagnosis: Chronic right ureteral stent secondary to ureteral obstruction Operation Date: 11/21/22 07:00 Proposed Procedures p CYSTOSCOPY RIGHT STENT EXCHANGE POSSIBLE RIGHT EXTRACORPOREAL SHOCKWAVE LITHOTRIPSY 13704 77455,N13.5 Z96.0(Not Applicable) - Nnamdi Mayes MD s Ureteral Stent Exchange(Right) - Nnamdi Mayes MD s ESWL Extracorporeal Shockwave Lithotrispy(Right) - Nnamdi Mayes MD Familial anesthetic complications: None Social Tobacco and No alcohol Exam alert, oriented x 3, clear to auscultation bilaterally and regular rate & rhythm Airway Mallampati: Class II Dentition: false Pulmonary Chronic Obstructive Pulmonary Disease CV/HEM Coronary Artery Disease, Congestive Heart Failure, Myocardial Infarction and Peripheral Vascular Disease angiograms have been unsuccessful d/t inability to get access (extremely calcified), so they are just giving her nitro rather than persuing stents. No longer on plavix Echo CONCLUSIONS ?The study is limited to two-dimensional only.? No M-mode or ?Doppler examinations were obtained.? The ventricle is normal in ?size.? There is mild global hypokinesis.? The overall ejection ?fraction is about 40%.? There do not appear to be any wall ?motion disturbances.? Diastolic function not evaluated. ?Moderately increased left atrial size. ?Previous study was done 07/06/2022.? There were wall motion ?disturbances noted on that study.? They may be present on this ?study but it is too poor to delineate these findings.? Ejection ?fraction was 45% on the previous study.? No other new findings. hx ureterectomy during robot hysterectomy Anesthetic Plan ASA status: 4 Anesthesia: General Risk of > 500 ml blood loss (7ml/kg in children): No Medications/Allergies Home Medications Medication Instructions Recorded Confirmed Last Taken Type acetaminophen 325 mg tablet 325 mg PO QID PRN Pain 05/04/20 11/18/22 02/26/22 History (Tylenol) multivitamin (One Daily 1 tab PO DAILY 05/04/20 11/18/22 08/19/22 History Multivitamin tablet) umeclidinium 62.5 mcg-vilanterol 1 inh inhalation DAILY 30 days #60 05/21/21 11/18/22 08/19/22 Rx 25 mcg/actuation powdr for ea inhalation (Anoro Ellipta) methenamine hippurate 1 gram tablet 1 g PO BID #60 tabs 03/01/22 11/18/22 08/19/22 Rx ascorbic acid (vitamin C) 1,000 mg 1,000 mg PO DAILY 04/26/22 11/18/22 08/19/22 History tablet (Vitamin C) aspirin 81 mg tablet,delayed 81 mg PO DAILY #30 tabs 04/27/22 11/18/22 08/19/22 Rx release atorvastatin 40 mg tablet 40 mg PO BEDTIME #60 tabs 04/27/22 11/18/22 08/18/22 Rx fluticasone propionate 50 1 spray intranasal DAILY 07/26/22 11/18/22 08/19/22 History mcg/actuation nasal spray,suspension (Flonase Allergy Relief) clopidogrel 75 mg tablet 75 mg PO DAILY 08/19/22 11/16/22 08/19/22 History metoprolol tartrate 50 mg tablet 50 mg PO BID 08/19/22 11/18/22 08/19/22 History furosemide 20 mg tablet 40 mg PO BID PRN fluid retention 10/20/22 11/18/22 Unknown History lisinopril 5 mg tablet 5 mg PO DAILY 10/20/22 11/18/22 Unknown History nitroglycerin 0.4 mg sublingual 0.4 mg sublingual Q5M PRN chest 10/20/22 11/18/22 Unknown Rx tablet pain #25 tabs isosorbide mononitrate 30 mg 30 mg PO DAILY 11/16/22 11/16/22 Unknown History tablet,extended release 24 hr Allergies Allergy/AdvReac Type Severity Reaction Status Date / Time meperidine [From Demerol] Allergy Unknown Unknown Verified 11/16/22 14:47 morphine Allergy Unknown Unknown Verified 11/16/22 14:47 [facility] Anesthesia Medical History (Updated 11/16/22 @ 15:19 by Nnamdi Mayes MD) CAD (coronary artery disease) Cardiomyopathy COPD (chronic obstructive pulmonary disease) Dyslipidemia Elevated troponin Elevated troponin I level Emphysema lung Essential hypertension Extrinsic ureteral obstruction Hypoxia NSTEMI (non-ST elevated myocardial infarction) Peripheral arterial disease Retained ureteral stent Syncope and collapse Tobacco abuse Urinary incontinence Surgical History H/O arthroscopic knee surgery bilateral H/O oral surgery H/O shoulder surgery H/O total hip arthroplasty right H/O: H/O: hysterectomy History of colon surgery Family History Mother , at age 79 Hypertension Peripheral artery disease Diabetes Father , at age 47 Cancer pancreatic and lung Social History Smoking and tobacco status: current some day smoker (quitting) cigarettes Packs smoked per day: 0.5 Years cigarettes smoked: 60 [ Other cigarette details: Hx of 1 PPD x 50 Years] Second hand smoke exposure: Yes Smoking risk assessment/counseling performed?: Yes Alcohol intake: never Lives independently: Yes Housing: Apartment Marital status: Legally Current occupational status: retired and disabled Current gender identity: Female Data Anesthesia Cardiac Studies: Echocardiogram 07/06/22 Echocardiogram Limited Views 08/19/22
[2022-11-18 09:51] LABS: Basophils # 0.1 10^3/uL (0.0-0.1); Eosinophils # 0.1 10^3/uL (0.0-0.8); Eosinophils % 2.6 %; Hematocrit 41.3 % (37.0-47.0); Hemoglobin 12.7 g/dL (11.5-15.3); Lymphocytes # 1.3 10^3/uL (0.8-4.8); Lymphocytes % 26.3 %; Mean Corpuscular HGB Conc 30.8 g/dL (30.0-36.0); Mean Corpuscular Volume 97.4 fl (81-99); Mean Platelet Volume 10.5 fL (7.4-10.4); Monocytes # 0.4 10^3/uL (0.2-0.9); Monocytes % 7.2 %; Neutrophils # 3.12 10^3/uL (1.8-7.7); Neutrophils % 62.3 %; Nucleated Red Blood Cells % 0 %; Platelet Count 219 10^3/cmm (130-400); Red Blood Count 4.24 10^6/uL (4.1-5.3); Red Cell Distribution Width 13.4 % (12.1-15.1)
[2022-11-18 10:16] LABS: Alanine Aminotransferase 6 U/L (0-33); Albumin Level 4.3 g/dL (3.5-5.2); Alkaline Phosphatase 109 U/L (35-105); Aspartate Amino Transferase 13 U/L (0-32); Blood Urea Nitrogen 23 mg/dL (8-23); Calcium 9.9 mg/dL (8.5-10.5); Carbon Dioxide 23 mmol/L (22-29); Chloride 102 mmol/L (98-107); Globulin 3.2 g/dL (1.3-4.6); Glucose 83 mg/dL (65-115); Osmolality Calculated 291 mOsm/kg (285-295); Sodium 139 mmol/L (136-145); Total Bilirubin 0.5 mg/dL (0.15-1.2); Total Protein 7.5 g/dL (6.6-8.7)
[2022-11-21] VITALS (10 sets, daily range): BP systolic 129–156; BP diastolic 59–81; PULSE 72–105; RESP 15–24; TEMP 35.9–36.3; O2SAT 96–99
--- NOTE | 2022-11-21 06:40 | XR_ITS ---
WS: [id number] XR KUB [id number] REASON FOR EXAM: Right ureteral stent exchange FINDINGS: Properly positioned right ureteral stent. Same position as previous right ureteral stent 11/16/2022. Multiple intrarenal calculi bilaterally. No interval change compared to 11/16/2022. No calculi identified along the course of the stent or overlying the bladder. XR/XR KUB [id number] IMPRESSION: Right ureteral stent as above.
[2022-11-21] MEDS: sodium chloride 0.9% 1,000 ML 30 ML IV (07:12)
--- NOTE | 2022-11-21 07:30 | P.HPUD_ITS ---
Surgery/Procedure H&P Update DATE OF PROCEDURE: November 21, 2022 DATE H&P PERFORMED: 11/16/22 H&P UPDATE INFORMATION: I have reviewed H&P completed within last 30 days, I have examined patient prior to procedure, No changes to prior documentation and H&P is in [facility] EMR on date indicated PREOP DIAGNOSIS: Ureteral obstruction, chronic stent PLANNED PROCEDURE: Operation Date: 11/21/22 07:00 Proposed Procedures p CYSTOSCOPY RIGHT STENT EXCHANGE POSSIBLE RIGHT EXTRACORPOREAL SHOCKWAVE LITHOTRIPSY 79439 60939,N13.5 Z96.0(Not Applicable) - Nnamdi Mayes MD s Ureteral Stent Exchange(Right) - Nnamdi Mayes MD s ESWL Extracorporeal Shockwave Lithotrispy(Right) - Nnamdi Mayes MD
[2022-11-21] MEDS: levofloxacin-dextrose 5 % 500 MG/100 ML PREMIX 100 MG IV (07:32)
--- NOTE | 2022-11-21 07:38 | P.ANESUD_ITS ---
Pre-Anesthetic Update Pre-Anesthetic Assessment: Date of Surgery/Procedure: 11/21/22 Preop Eleanor gnosis: Ureteral obstruction, chronic stent Proposed Procedure: Operation Date: 11/21/22 07:00 Proposed Procedures p CYSTOSCOPY RIGHT STENT EXCHANGE POSSIBLE RIGHT EXTRACORPOREAL SHOCKWAVE LITHOTRIPSY 34747 97959,N13.5 Z96.0(Not Applicable) - Nnamdi Mayes MD s Ureteral Stent Exchange(Right) - Nnamdi Mayes MD s ESWL Extracorporeal Shockwave Lithotrispy(Right) - Nnamdi Mayes MD Any changes to Pre-Anesthetic Assessment?: No Last Intake: Intake Last Liquid Date 11/21/22 Last Liquid Time 01:00 Last Solid Date 11/19/22 Last Solid Time 18:00 Vitals: Temperature 97.4 F L 11/21/22 07:10 Temperature Source Temporal Artery S can 11/21/22 07:10 Pulse Rate 88 11/21/22 07:10 Respiratory Rate 16 11/21/22 07:10 Blood Pressure 145/63 11/21/22 07:10 Blood Pressure Brenda n 90 11/21/22 07:10 Pulse Oximetry 98 11/21/22 07:10 Oxygen Delivery Me thod 11/21/22 07:10 Exam: Pre-Anes Outpt Exam: alert, oriented x 3, clear to auscultation bilaterally and regular rate & rhythm Cardiac Studies: Echocardiogram 07/06/22 Echocardiogram Limited Views 08/19/22
--- NOTE | 2022-11-21 08:16 | P.OP_ITS ---
Operative Report Date of procedure: November 21, 2022 Pre-op diagnosis: Ureteral obstruction, chronic stent Proximal calcification of stent Post-op diagnosis: Ureteral obstruction, chronic stent Proximal calcification of stent Procedure done: 1. Extracorporeal shockwave lithotripsy to proximal ureteral stent curled on the right 2. Right ureteral stent exchange Implants: 7 Gibralt[place] by 24 cm double-pigtail stent removed and exchanged same size stent. Specimens removed/disposition: Stent removed Pathology: None Surgeon: Sugey Decision Support Manager: Migue Aden, lithotripsy Geophysical Computer Estimated blood loss: None Urine output: Not measured Complications: None Findings: Anesthesia: General Condition: Stable Disposition: PACU Intraoperative findings: * Some distal ureteral stent calcification. After 300 shocks with ESWL guidewire was passed through the stent easily with proximal stent uncurling and stent withdrawn without difficulty. * There was quite a few calcification fragments that came out with the stent withdrawal.. There was no tension on removing the stent whatsoever. No bleeding. * 7 [place] by 24 cm double-pigtail stent placed easily over guidewire Brief History: Ms. Gerardo is a delightful 76-year-old white female with a chronic ureteral stricture managed with indwelling ureteral stent change on average about every 6 months. She has some medical problems that delayed her stent change and she was about 9 months plus since last stent change. There was not a severe amount of calcification seen on the stent but it did appear to have some calcification. She has been on blood thinners historically. They were held for the procedure and the plan was to perform ESWL to the proximal aspect curl and then exchange of the stent with other procedures as indicated Procedure: After routine preoperative evaluation examination and obtaining of informed consent she was taken to the operating suite on 11/21/2022 where general anesthesia was administered without difficulty after appropriate timeout was performed, SCDs confirmed to be functioning, preoperative antibiotics administered, beta-amado protocol confirmed. Prepped and draped in the usual sterile fashion in supine position on the Dornier unit such that the focal point was at the proximal curl utilizing biplanar fluoroscopy for localization. With a rate of 60 throughout a total of 300 shocks were administered with a maximum intensity of 3 to the entire curl of the stent. She was then positioned in dorsolithotomy position pain careful attention to avoiding pressure points. 21 [place]arian cystoscope with 30 degree lens was introduced into urethra meatus and passed into the bladder without difficulty. There was encrustation on the distal aspect of the stent will be somewhat cleared with grasping forceps. The distal aspect of the stent was withdrawn through the urethral meatus and a flexible tip guidewire was advanced through the stent and was able to uncurl the proximal end. The stent was then withdrawn over the guidewire under fluoroscopic monitoring with no difficulty and no tension. Cystoscope was then backloaded over the guidewire and a 7 [place] by 24 cm double-pigtail stent was advanced without difficulty up the ureter over the guidewire into appropriate position as confirmed via fluoroscopy and cystoscopy. It was noted at this point that there was quite a bit of sediment and very small stone fragments that had come out with the stent. Which was removed. There was no bleeding and the stent was confirmed to be functioning well. She tolerated procedure well without complications and was awakened in the operating room and returned to the PACU in stable condition. PLANS: 1. Anticipate discharge from outpatient surgery 2. She will be due for another stent change in about 6 months. I will be retired at that time. We will make arrangements for her to follow-up with [facility] or [place] depending on her preference for her next stent change
[2022-11-21] MEDS: albuterol 2.5 mg/3 mL Neb INHALATION (09:04)
[2022-11-21] MEDS: ipratropium 0.5 mg/2.5 mL Neb INHALATION (09:05)
--- NOTE | 2022-11-21 09:05 | SUR.PHASEII ---
Shortness of breath Phase II Patient states she feels as though she cannot take a full breath. RR 22, O2 96% on RA. Patient denies any COPD, home O2, home breathing treatments or inhalers. Respiratory notified for possible PRN breathing treatment, they are in room now giving treatment.
--- NOTE | 2022-11-21 16:54 | ANE.PACU2 ---
Inpatient post-anesthesia follow up: Airway intact: Yes Vital signs: Temperature 96.6 F Pulse Rate 75 Respiratory Rate 18 Blood Pressure 156/75 Pulse Oximetry 96 Oxygen Delivery Me thod Room Air Oxygen Flow Rate 6 Fraction of Inspir ed Oxygen Hydration adequate: Yes Nausea and vomiting: No Pain level: 3 Mental status: Baseline
== END 2022-11-21 09:40 | disposition home or self-care (01) ==
PROVIDERS: Anesthesiology; PCP Family Medicine; Visit Provider Urology
PROC: 0TJB8ZZ Inspection of Bladder, Via Natural or Artificial Opening Endoscopic (ICD-10-PCS; CPT 52000; principal; 2022-11-21 07:00)
PROC: (CPT 50590; 2022-11-21 07:00)
PROC: (CPT 50590; 2022-11-21 07:00)
DX: N13.5 Crossing vessel and stricture of ureter without hydronephrosis (principal); I50.9 Heart failure, unspecified; I25.10 Atherosclerotic heart disease of native coronary artery without angina pectoris; I25.2 Old myocardial infarction; J43.9 Emphysema, unspecified; I42.9 Cardiomyopathy, unspecified; F17.210 Nicotine dependence, cigarettes, uncomplicated; Z79.82 Long term (current) use of aspirin
CPT/HCPCS: 50590; 52332; 74018; 80053; 85025; 94640; C1874; J1100; J1956; J2370; J2405; J2704; J2710; J3010; J3490; J7030; J7613; J7644

== ENCOUNTER 2022-11-23 09:53 | Inpatient (IN) | payer MEDICARE, MEDICAID, SELFPAY ==
[2022-11-23] VITALS (101 sets, daily range): BP systolic 87–176; BP diastolic 42–112; PULSE 71–117; RESP 13–29; TEMP 36.5–37.1; O2SAT 70–100; BMI 24.5
[2022-11-23] MEDS: FUROsemide 10 mg/mL SDV 4mL 40 MG IVP ×3 (10:20→17:03)
[2022-11-23] MEDS: morphine 4 mg/mL SDV 1 mL IVP (10:20)
[2022-11-23 10:23] LABS: Alveolar-Arterial Oxygen Gradi 58.1 mmHg (5-10); Arterial Blood Gas Hematocrit 37.5 % (37-47); Blood Gas Allen Test Pos; Blood Gas Sample Site Brachial, right; Blood Gas Sample Type Arterial; Carboxyhemoglobin 2.1 %THgb (0.4-20.1); HGB O2 Sat 96.9 % (95-100); Methemoglobin 0.9 % (0.4-1.5); Oxygen Device BIPAP; Total Hemoglobin 12.2 g/dL (12-16)
--- NOTE | 2022-11-23 10:25 | XR_ITS ---
WS: [id number] XR chest 1V portable [id number] REASON FOR EXAM: dyspnea/central line placement FINDINGS: Left internal jugular central venous line placement with the tip in the SVC just above the atrium. Heart at the upper limits of normal. Reticular and linear interstitial lung opacities in the lower lung tompkins with Steff B lines along t he lateral lower right lung field. Possible small joint effusions. XR/XR chest 1V portable [id number] IMPRESSION: Findings most compatible with congestive heart failure.
--- NOTE | 2022-11-23 10:29 | PC.PHAR ---
Addendum entered by Praveena Medina 11/23/22 11:57: pts med bottles were brought in -pt brought in empty bottle of methenamine hippurate 1g bid filled 10/07/22 30d/s-pt didnt bring in isosorbide mononitrate 30mg daily last filled 08/22/22 30d/s no refills Original Note: pt unable to verify medications-medications entered are what ext med history shows has been filled recently and what was entered on previous entered med list-plavix 75mg daily last filled 08/16/22 90d/s-isosorbide mono er 30mg daily last filled 08/22/22 30d/s no refills rx written 11/16/22 -methenamine hippurate 1g bid filled 10/07/22 30d/s-notes are made in the pharmacy comments
[2022-11-23 10:34] LABS: ABG PCO2 50.7 mmHg (35-45); ABG PH Result 7.16 (7.35-7.45); Base Excess ABG -10.7 mmol/L (-2.0-2.0)
[2022-11-23 10:35] LABS: Glucose Point of Care 269 mg/dL (70-110); Oxygen Saturation ABG 99.9; Potassium Level - ABG 4.4 mmol/L (3.5-5.0)
[2022-11-23 10:36] LABS: Arterial Blood Gas Hematocrit 37.5 % (37-47); Blood Gas Sample Site RB; Blood Gas Sample Type Arterial; Oxygen Device BIPAP
[2022-11-23 10:37] LABS: Alveolar-Arterial Oxygen Gradi 435.7 mmHg (5-10); Carboxyhemoglobin 2.1 %THgb (0.4-20.1); HGB O2 Sat 96.9 % (95-100); Ionized Calcium Level - ABG 1.3 mmol/L (1.1-1.4); Methemoglobin 0.9 % (0.4-1.5); Total Hemoglobin 12.2 g/dL (12-16)
[2022-11-23 10:38] LABS: Basophils # 0.1 10^3/uL (0.0-0.1); Basophils % 0.6 %; Eosinophils # 0.1 10^3/uL (0.0-0.8); Hematocrit 39.6 % (37.0-47.0); Hemoglobin 12.1 g/dL (11.5-15.3); Lymphocytes # 2.7 10^3/uL (0.8-4.8); Lymphocytes % 26.2 %; Mean Corpuscular HGB Conc 30.6 g/dL (30.0-36.0); Mean Corpuscular Hemoglobin 30.8 pg (28.0-34.0); Mean Corpuscular Volume 100.8 fl (81-99); Mean Platelet Volume 10.4 fL (7.4-10.4); Monocytes # 0.5 10^3/uL (0.2-0.9); Neutrophils % 66.8 %; Nucleated Red Blood Cells % 0 %; Platelet Count 276 10^3/cmm (130-400); Red Blood Count 3.93 10^6/uL (4.1-5.3); Red Cell Distribution Width 13.7 % (12.1-15.1); White Blood Count 10.3 10^3/uL (4.0-10.0)
[2022-11-23 10:57] LABS: Add Urine Microscopic? YES; Bilirubin Urine Neg (Negative); Blood Urine 3+ (Negative); Glucose Urine UA Norm (Normal); Ketones Urine Negative (Negative); Leukocyte Esterase Urine 2+ (Negative); Nitrate Urine Positive (Negative); Protein Urine 1+ (Negative); Specific Gravity, Urine 1.015 (1.005-1.030); Urine Appearance Cloudy (CLEAR); Urine Color Yellow (Yellow); Urobilinogen Urine Neg (Negative); pH Urine 5 (5-7)
[2022-11-23 10:58] LABS: Bacteria Urine 1+ /hpf; RBC Urine 50-80 /hpf (0-2); Squamous Epithelial Cell Urine 0-4 /hpf (0-5); WBC Urine TOO NUMEROUS TO CNT /hpf (0-5)
[2022-11-23 10:59] LABS: Add Urine Culture? Yes
[2022-11-23 11:06] LABS: Ketone (Acetest) Serum Negative (Negative)
--- NOTE | 2022-11-23 11:09 | ED_ITS ---
HPI - SOB/Dyspnea General: Chief Complaint: Shortness of Breath/Dyspnea Stated Complaint: CHF Time Seen by Provider: 11/23/22 09:56 Source: patient Mode of arrival: EMS History of Present Illness: HPI Narrative: 76-year-old female presents emergency room acute respiratory distress. She is tachypneic with use of accessory respiratory muscles. She is still responsive she denies chest or abdominal pain 2 days ago she had her ureteral stent replaced with Dr. Mayes. Moderate increased leg swelling. She denies fever sweats chills. MD elicited complaint: shortness of breath and cough Pertinent past history: COPD and congestive heart failure Onset (ago): day(s) Timing: constant Severity: severe Exacerbating factors: lying flat and exertion Relieving factors: oxygen Known history of: COPD and congestive heart failure Associated symptoms: Reports chest congestion, cough and orthopnea; Deny abdominal pain, chest pain, diaphoresis, dizziness, extremity pain, fever(s), hemoptysis, lightheadedness, myalgias, nausea, palpitations, paresthesias, polydipsia, polyuria, rash, sense of impending doom, syncope or vomiting Treatment prior to arrival: oxygen and bronchodilator Review of Systems Const: Denies: fever(s), chills, fatigue, malaise or diaphoresis ENMT: Denies: throat pain, ear or mastoid pain, nasal discharge or nasal congestion Card: Reports: edema, swelling of feet/ankles and orthopnea; Denies: chest pain, palpitations, irregular heart rhythm, lightheadedness or syncope Resp: Reports: dyspnea, non-productive cough, wheezing and chest congestion; Denies: hemoptysis GI: Denies: abdominal pain, nausea or vomiting : Denies: flank pain, difficulty voiding, dysuria, urinary frequency or urinary urgency Musc: Denies: extremity pain Skin/Breast: Denies: rash or pruritus Neuro: Denies: dizziness Endo: Denies: polyuria or polydipsia PFSH ED PFSH: Medical History CAD (coronary artery disease) Cardiomyopathy COPD (chronic obstructive pulmonary disease) Dyslipidemia Elevated troponin Elevated troponin I level Emphysema lung Essential hypertension Extrinsic ureteral obstruction Hypoxia NSTEMI (non-ST elevated myocardial infarction) Peripheral arterial disease Retained ureteral stent Syncope and collapse Tobacco abuse Urinary incontinence Surgical History H/O arthroscopic knee surgery bilateral H/O oral surgery H/O shoulder surgery H/O total hip arthroplasty right H/O: H/O: hysterectomy History of colon surgery Family History Mother , at age 79 Hypertension Peripheral artery disease Diabetes Father , at age 47 Cancer pancreatic and lung Social History Smoking and tobacco status: current some day smoker (quitting) cigarettes Packs smoked per day: 0.5 Years cigarettes smoked: 60 [ Other cigarette details: Hx of 1 PPD x 50 Years] Second hand smoke exposure: Yes Smoking risk assessment/counseling performed?: Yes Alcohol intake: never Lives independently: Yes Housing: Apartment Marital status: Legally Current occupational status: retired and disabled Current gender identity: Female Physical Exam Const: ORIENTATION/CONSCIOUSNESS: Yes awake, Yes oriented to person, Yes oriented to place and Yes oriented to time HENMT: COMMON NORMALS: normocephalic, atraumatic and hearing grossly normal bilaterally HEAD & SCALP: normocephalic and atraumatic Resp: COMMON NORMALS: No use of accessory muscles EFFORT & INSPECTION: Yes tachypneic, Yes respiratory distress, Yes labored, Yes grunting, Yes Actively coughing and Yes uses accessory muscles AUSCULTATION: rales and wheezes Cardio: COMMON NORMALS: regular rhythm and No murmurs present (Cardio) RATE: tachycardic RHYTHM: regular rhythm GI: COMMON NORMALS: Soft to palpation and No hepatosplenomegaly present AUSCULTATION: Yes normoactive bowel sounds PALPATION: Yes Soft to palpation, No Tenderness to palpation present (GI), No Guarding due to palpation present (GI) and Yes No hepatosplenomegaly present Extremity: COMMON NORMALS: normal to inspection, capillary refill normal, no clubbing, cyanosis or edema, no calf tenderness and no pedal edema Neuro: SENSORIUM/ORIENTATION: Yes oriented to person, Yes oriented to place and Yes oriented to time Skin: COMMON NORMALS: no rashes or lesions noted GENERAL SKIN EXAM: no rashes or lesions noted Procedures Central Line Placement Left IJ: Time Out Performed: Yes Patient Placed on Monitor/Pulse Ox: Yes MD Prep: mask, gown and gloves Central Line Prep: Chlorhexidine scrub Local Anesthetic: lidocaine 1% Amount of anesthesia used (mL): 5 Ultrasound Used for Placement: Yes Central Line Lumen Inserted: triple Post Procedure: sutured in place, good blood return, all ports aspirated, flushed, capped and sterile dressing applied Post Procedure X-Ray: tip of catheter in good position and no pneumothorax seen Patient Tolerated Procedure: well Complications: none Additional Comments: Unable to obtain IV access. I elected to place central line emergently. Patial nt tolerated procedure well no complications blood drawn from the central line tube handed directly to the blood bank laboratory technologist for blood cultures and routine labs Course Vital Signs: Vital signs: Vital Signs Temperature 97.7 F 11/23/22 09:54 Pulse Rate 76 11/23/22 12:05 Respiratory Rate 18 11/23/22 11:12 Blood Pressure 119/52 11/23/22 12:05 Pulse Oximetry 96 11/23/22 12:05 Oxygen Delivery Me thod 11/23/22 11:12 Oxygen Flow Rate 4 11/23/22 09:54 Fraction of Inspir ed Oxygen 60 11/23/22 11:12 MDM - SOB/Dyspnea Medical Decision Making Acute decompensated congestive heart failure. Has a history of cardiomyopathy with an EF of 40%. It was a relatively recent echo about 3 months ago. She was given diuretic significant metabolic acidosis caused by diarrhea she has been having last few days as well as exacerbated by her congestive heart failure. She actually improved with BiPAP and diuresis. And a central line was placed emergently for lack of IV access she is started on dopamine and diuresis has been initiated. She is also started on meropenem she has a cystitis has previously had ESBL E. coli. Discussed with hospitalist orders written. Patient is septic did not give sepsis fluid bolus because of acute congestive he art failure which could have caused her to significantly worsen. Medical Records I reviewed the patient's medical records. Lab Data I reviewed the patient's lab results. 11/23/22 10:24 11/23/22 10:24 Labs/Radiology: Radiology Impressions Chest X-Ray 11/23/22 10:25 IMPRESSION: Findings most compatible with congestive heart failure. Laboratory Results WBC 10.3 10^3/uL (4.0-10.0) H 11/23/22 10:24 RBC 3.93 10^6/uL (4.1-5.3) L 11/23/22 10:24 Hgb 12.1 g/dL (11.5-15.3) 11/23/22 10:24 Hct 39.6 % (37.0-47.0) 11/23/22 10:24 MCV 100.8 fl (81-99) H 11/23/22 10:24 MCH 30.8 pg (28.0-34.0) 11/23/22 10:24 MCHC 30.6 g/dL (30.0-36.0) 11/23/22 10: RDW 13.7 % (12.1-15.1) 11/23/22 10: Plt Count 276 10^3/cmm (130-400) 11/23/22 10:24 MPV 10.4 fL (7.4-10.4) 11/23/22 10:24 Neut % (Auto) 66.8 % 11/23/22 10:24 Lymph % (Auto) 26.2 % 11/23/22 10:24 [place] % (Auto) 5.0 % 11/23/22 10:24 Eos % (Auto) 1.0 % 11/23/22 10:24 Baso % (Auto) 0.6 % 11/23/22 10:24 Neut # (Auto) 6.90 10^3/uL (1.8-7.7) 11/23/22 10:24 Lymph # (Auto) 2.7 10^3/uL (0.8-4.8) 11/23/22 10:24 [place] # (Auto) 0.5 10^3/uL (0.2-0.9) 11/23/22 10:24 Eos # (Auto) 0.1 10^3/uL (0.0-0.8) 11/23/22 10:24 Baso # (Auto) 0.1 10^3/uL (0.0-0.1) 11/23/22 10:24 Nucleated RBC % (auto) 0 % 11/23/22 10:24 Nucleated RBCs # 0.0 /100WBC 11/23/22 10:24 Specimen Type Arterial 11/23/22 11:18 Sample Site Radial, left 11/23/22 11:18 ABG pH 7.29 (7.35-7.45) L 11/23/22 11:18 ABG pCO2 40.5 mmHg (35-45) 11/23/22 11:18 ABG pO2 97.7 mmHg (80.0-100.0) 11/23/22 11:18 ABG HCO3 19.6 mmol/L (22-26) L 11/23/22 11:18 ABG O2 Saturation 97.9 11/23/22 11:18 ABG Base Excess -6.5 mmol/L (-2.0-2.0) L 11/23/22 11:18 Roby Test Pos 11/23/22 11:18 A-a O2 Gradient 36.7 mmHg (5-10) H 11/23/22 11:18 Hematocrit 33.6 % (37-47) L 11/23/22 11:18 Hgb O2 Saturation 95.0 % (95-100) 11/23/22 11:18 Carboxyhemoglobin 2.0 %THgb (0.4-20.1) 11/23/22 11:18 Methemoglobin 0.9 % (0.4-1.5) 11/23/22 11:18 Total Hemoglobin 11.0 g/dL (12-16) L 11/23/22 11:18 Sodium 142.0 mmol/L (131-143) 11/23/22 11:18 Potassium 3.7 mmol/L (3.5-5.0) 11/23/22 11:18 Glucose 189.0 mg/dL (70-115) H 11/23/22 11:18 Ionized Calcium 1.3 mmol/L (1.1-1.4) 11/23/22 11:18 O2 Delivery Device Bipap 11/23/22 11:18 FiO2 60.0 % 11/23/22 11:18 Cash Specialist ID [email or web address] 11/23/22 11:18 Blood Gas Notified Time 92911/23/22 10:31 Sodium 142 mmol/L (136-145) 11/23/22 10:24 Potassium 4.3 mmol/L (3.5-5.1) 11/23/22 10:24 Chloride 107 mmol/L (98-107) 11/23/22 10:24 Carbon Dioxide 18 mmol/L (22-29) L 11/23/22 10:24 Anion Gap 21.3 (5-19) H 11/23/22 10:24 BUN 17 mg/dL (8-23) 11/23/22 10:24 Creatinine 1.1 mg/dL (0.5-0.9) H 11/23/22 10:24 GFR Calculation Not Reportable 11/23/22 10:24 Glucose 330 mg/dL (65-115) H 11/23/22 10:24 POC Glucose 269 mg/dL (70-110) H 11/23/22 10:31 Calculated Osmolality 308 mOsm/kg (285-295) H 11/23/22 10:24 Lactic Acid 4.5 mmol/L (0.5-2.2) H* 11/23/22 10:24 Calcium 8.9 mg/dL (8.5-10.5) 11/23/22 10:24 Magnesium 2.0 mg/dL (1.7-2.3) 11/23/22 10:24 Total Bilirubin 0.3 mg/dL (0.15-1.2) 11/23/22 10:24 AST 22 U/L (0-32) 11/23/22 10:24 ALT 11 U/L (0-33) 11/23/22 10:24 Alkaline Phosphatase 111 U/L (35-105) H 11/23/22 10:24 NT-Pro-B Natriuret Pep 78640 pg/mL (0-450) H 11/23/22 10:24 Total Protein 6.7 g/dL (6.6-8.7) 11/23/22 10:24 Albumin 3.9 g/dL (3.5-5.2) 11/23/22 10:24 Globulin 2.8 g/dL (1.3-4.6) 11/23/22 10:24 Lipase 29 U/L (13-60) 11/23/22 10:24 Urine Color Yellow (Yellow) 11/23/22 10:40 Urine Appearance Cloudy (CLEAR) A 11/23/22 10:40 Urine pH 5 (5-7) 11/23/22 10:40 Ur Specific [place] 1.015 (1.005-1.030) 11/23/22 10:40 Urine Protein 1+ (Negative) H 11/23/22 10:40 Urine Glucose (UA) Norm (Normal) 11/23/22 10:40 Urine Ketones Negative (Negative) 11/23/22 10:40 Urine Blood 3+ (Negative) H 11/23/22 10:40 Urine Nitrate Positive (Negative) H 11/23/22 10:40 Urine Bilirubin Neg (Negative) 11/23/22 10:40 Urine Urobilinogen Neg mg/dL (Negative) 11/23/22 10:40 Ur Leukocyte Esterase 2+ (Negative) H 11/23/22 10:40 Urine RBC 50-80 /hpf (0-2) H 11/23/22 10:40 Urine WBC Too numerous to cnt /hpf (0-5) H 11/23/22 10:40 Ur Squamous Epith Cells 0-4 /hpf (0-5) H 11/23/22 10:40 Amorphous Sediment Not Reportable 11/23/22 10:40 Urine Bacteria 1+ /hpf (NONE) H 11/23/22 10:40 Salicylates < 0.3 mg/dL (3-10) L 11/23/22 10:24 Acetaminophen < 5.0 ug/mL (10-30) L 11/23/22 10:24 Serum Ketones Negative (Negative) 11/23/22 10:24 SARS-CoV-2 Ag (Rapid) negative (Negative) 11/23/22 10:53 Critical Care Time Critical Care Time: Critical Care Time: Yes Total Critical Care Time: 45 Attestation: The high probability of a clinically significant, sudden or life threatening deterioration of the patient's cardiovascular respiratory system(s) required my full and direct attention, intervention and personal management. The critical care time is as shown. This time is in addition to time spent performing any reported procedures but includes the following: [x] Data and vital sign review and interpretation [x] Patient assessment, examination and intervention [x] Documentation [x] Medication orders and management Discharge Plan Discharge Patient Disposition: Admitted As Inpatient Clinical Impression: Heart failure, systolic, with acute decompensation, Cardiomyopathy, COPD (chronic obstructive pulmonary disease), Cystitis Condition: Stable Coding Level of Care Code ED Medical Photographer for Isi Calhoun
[2022-11-23] MEDS: ipratropium-albuterol 3 mL Neb INHALATION (11:11)
[2022-11-23 11:13] LABS: SARS Covid-2 Antigen negative (Negative)
[2022-11-23 11:20] LABS: Lactic Sepsis W/Reflex 4.5 mmol/L (0.5-2.2)
[2022-11-23] MEDS: DOPamine drip 400 MG/250 ML PREMIX 11.06 MG IV (11:20)
[2022-11-23 11:29] LABS: ABG PCO2 40.5 mmHg (35-45); ABG PH Result 7.29 (7.35-7.45); Alveolar-Arterial Oxygen Gradi 36.7 mmHg (5-10); Arterial Blood Gas Hematocrit 33.6 % (37-47); Base Excess ABG -6.5 mmol/L (-2.0-2.0); Blood Gas Allen Test Pos; Blood Gas Sample Site Radial, left; Blood Gas Sample Type Arterial; HCO3 ABG 19.6 mmol/L (22-26); Ionized Calcium Level - ABG 1.3 mmol/L (1.1-1.4); Methemoglobin 0.9 % (0.4-1.5); Oxygen Device BIPAP; Oxygen Saturation ABG 97.9; PO2 ABG 97.7 mmHg (80.0-100.0); Potassium Level - ABG 3.7 mmol/L (3.5-5.0)
[2022-11-23 11:31] LABS: Acetaminophen < 5.0 ug/mL (10-30); Alanine Aminotransferase 11 U/L (0-33); Albumin Level 3.9 g/dL (3.5-5.2); Alkaline Phosphatase 111 U/L (35-105); Anion Gap 21.3 (5-19); Aspartate Amino Transferase 22 U/L (0-32); Blood Urea Nitrogen 17 mg/dL (8-23); Calcium 8.9 mg/dL (8.5-10.5); Carbon Dioxide 18 mmol/L (22-29); Chloride 107 mmol/L (98-107); Globulin 2.8 g/dL (1.3-4.6); Glucose 330 mg/dL (65-115); Lipase 29 U/L (13-60); Osmolality Calculated 308 mOsm/kg (285-295); Potassium 4.3 mmol/L (3.5-5.1); Salicylate < 0.3 mg/dL (3-10); Sodium 142 mmol/L (136-145); Total Bilirubin 0.3 mg/dL (0.15-1.2); Total Protein 6.7 g/dL (6.6-8.7)
[2022-11-23] MEDS: meropenem 1,000 MG in sodium chloride 0.9% (plus) 50 ML 100 MG IV (11:50)
--- NOTE | 2022-11-23 12:08 | PC.NURSE ---
PT PLACED ON CONTINUOUS NIBP, SPO2, AND CM
[2022-11-23 12:19] LABS: Reflex Lactate Order REFLEX LACTIC ORDERD
[2022-11-23 13:34] LABS: Lactic Acid level (Lactate) 1.3 mmol/L (0.5-2.2)
--- NOTE | 2022-11-23 13:56 | PM.HP ---
Providers/Chief Complaint Admitting Physician: Timothy Castelan MD Primary Care Provider: Catalino Sanders MD Chief Complaint: CHF History of Present Illness Denia Gerardo is a 76 year old female with past medical history of hypertension COPD coronary artery disease,HFrEF, recurrent UTI,ECSL, with right ureteral stent exchange, for ureteral obstruction and presence of chronic indwelling , came in today with chief complaint of worsening shortness of breath started this Monday she was also complaining of shortness of breath with minimal exertion as well as, orthopnea. She has denied chest pain fever cough, headache nausea vomiting dizziness. X-ray chest: Showed pulmonary vascular congestion, Pertinent labs: WBC 10.3, H&H plt : 276 , serum sodium 142 serum potassium 4.3, BUN 17 serum creatinine 1.1, anion gap 21, lactic acid 4.5--> repeat lactic acid 1.3 proBNP 26225 Urinalysis dirty: Patient was found to be hypotensive in the ER, for which she had to be started on, dopamine drip, she also received 80 of Lasix IV, with fairly decent response in terms of urine output, she was also placed on BiPAP. Initial blood gas: pH 7.16, PCO2 50, PO2 207, at 100% FiO2, repeat blood gas, pH 7.29. PCO2 40. PO2 97, FiO2 of 60%. Review of Systems General: Reports: 10 or more systems reviewed and unremarkable except in HPI and below Const: Denies: fever(s), chills, body aches, change in appetite or diaphoresis Card: Reports: dyspnea on exertion and orthopnea; Denies: palpitations, edema, swelling of feet/ankles or leg pain with exertion Resp: Reports: dyspnea; Denies: productive cough, wheezing or pain on inspiration GI: Denies: abdominal pain, nausea, vomiting, diarrhea or constipation : Denies: flank pain Musc: Denies: back pain, extremity pain or extremity swelling Neuro: Denies: headache(s), difficulty walking or confusion Medications/Allergies Home Medications Medication Instructions Recorded Confirmed Last Taken Type acetaminophen 325 mg tablet 325 mg PO QID PRN Pain 05/04/20 11/23/22 02/26/22 History (Tylenol) methenamine hippurate 1 gram tablet 1 g PO BID #60 tabs 03/01/22 11/23/22 08/19/22 Rx ascorbic acid (vitamin C) 1,000 mg 1,000 mg PO BID 04/26/22 11/23/22 11/20/22 History tablet (Vitamin C) aspirin 81 mg tablet,delayed 81 mg PO DAILY #30 tabs 04/27/22 11/23/22 11/18/22 Rx release atorvastatin 40 mg tablet 40 mg PO BEDTIME #60 tabs 04/27/22 11/23/22 11/20/22 Rx fluticasone propionate 50 1 spray intranasal DAILY 07/26/22 11/23/22 08/19/22 History mcg/actuation nasal spray,suspension (Flonase Allergy Relief) clopidogrel 75 mg tablet 75 mg PO DAILY 08/19/22 11/23/22 10/25/22 History metoprolol tartrate 50 mg tablet 50 mg PO BID 08/19/22 11/23/22 11/20/22 History furosemide 20 mg tablet 40 mg PO BID PRN fluid retention 10/20/22 11/23/22 11/17/22 History lisinopril 5 mg tablet 5 mg PO DAILY 10/20/22 11/23/22 11/20/22 History nitroglycerin 0.4 mg sublingual 0.4 mg sublingual Q5M PRN chest 10/20/22 11/23/22 Unknown Rx tablet pain #25 tabs Allergies Allergy/AdvReac Type Severity Reaction Status Date / Time meperidine [From Demerol] Allergy Unknown Unknown Verified 11/23/22 10:02 morphine Allergy Unknown Unknown Verified 11/23/22 10:02 PFSH Acute PFSH: Medical History CAD (coronary artery disease) Cardiomyopathy COPD (chronic obstructive pulmonary disease) Dyslipidemia Elevated troponin Elevated troponin I level Emphysema lung Essential hypertension Extrinsic ureteral obstruction Hypoxia NSTEMI (non-ST elevated myocardial infarction) Peripheral arterial disease Retained ureteral stent Syncope and collapse Tobacco abuse Urinary incontinence Surgical History H/O arthroscopic knee surgery bilateral H/O oral surgery H/O shoulder surgery H/O total hip arthroplasty right H/O: H/O: hysterectomy History of colon surgery Family History Mother , at age 79 Hypertension Peripheral artery disease Diabetes Father , at age 47 Cancer pancreatic and lung Social History Smoking and tobacco status: current some day smoker (quitting) cigarettes Packs smoked per day: 0.5 Years cigarettes smoked: 60 [ Other cigarette details: Hx of 1 PPD x 50 Years] Second hand smoke exposure: Yes Smoking risk assessment/counseling performed?: Yes Alcohol intake: never Lives independently: Yes Housing: Apartment Marital status: Legally Current occupational status: retired and disabled Current gender identity: Female Vitals/I&O/Wt Last Vital Signs Temp 97.7 F 11/23/22 09:54 Pulse 78 11/23/22 13:20 Resp 18 11/23/22 11:12 BP 115/53 11/23/22 13:20 Pulse Ox 96 11/23/22 13:20 O2 Del Method 11/23/22 11:12 O2 Flow Rate 4 11/23/22 09:54 FiO2 60 11/23/22 13:05 11/22/22 11/23/22 11/23/22 22:59 06:59 14:59 Intake Total 60.875 / 60.875 Balance 60.875 / 60.875 Weight last 48 hrs Weight 58.967 kg Physical Exam Const: COMMON NORMALS: patient oriented x3 HENMT: COMMON NORMALS: normocephalic and atraumatic HEAD & SCALP: normocephalic and atraumatic Resp: COMMON NORMALS: clear to auscultation bilaterally AUSCULTATION: clear to auscultation bilaterally OTHER: Diminished air entry b/l Cardio: COMMON NORMALS: regular rate, regular rhythm, S1 normal heart sound present, S2 normal heart sound present, No gallops present (Cardio), No murmurs present (Cardio), No rub (Cardio) and Peripheral pulses 2+ throughout RATE: regular rate RHYTHM: regular rhythm HEART SOUNDS: S1 normal heart sound present and S2 normal heart sound present PERIPHERAL PULSES: Peripheral pulses 2+ throughout GI: COMMON NORMALS: Normal to inspection, nondistended, normoactive bowel sounds present, Soft to palpation, non-tender, No hepatosplenomegaly present and no masses AUSCULTATION: Yes normoactive bowel sounds PALPATION: Yes Soft to palpation and Yes No hepatosplenomegaly present RECTAL EXAM: deferred Extremity: COMMON NORMALS: no clubbing, cyanosis or edema and no pedal edema Neuro: COMMON NORMALS: patient oriented x3 Urinary Catheter Management: Velasquez: Cath Placed During This Visit: yes Urinary Catheter Date of Insertion: 11/23/22 Urinary Catheter Time of Insertion: 10:39 Data 11/23/22 10:24 11/23/22 10:24 Micro: Microbiology 11/23/22 10:38 Blood Culture - Preliminary Blood SPECIMEN COLLECTED 11/23/22 10:35 Blood Culture - Preliminary Blood SPECIMEN COLLECTED A&P Assessment and plan (1) Acute systolic CHF (congestive heart failure): (2) Essential hypertension: (3) COPD (chronic obstructive pulmonary disease): (4) CAD (coronary artery disease): (5) UTI (urinary tract infection): (6) Cardiogenic shock: (7) Lactic acidosis: (8) Respiratory failure with hypoxia and hypercapnia: Plan Akin is a 76 year old female with past medical history of hypertension COPD coronary artery disease,HFrEF, recurrent UTI,ECSL, with right ureteral stent exchange, for ureteral obstruction and presence of chronic indwelling , came in today with chief complaint of worsening shortness of breath started this Monday she was also complaining of shortness of breath with minimal exertion as well as, orthopnea. Assessment: Cardiogenic shock: Patient meets criteria for cardiogenic shock, as she was hypotensive, with cold,calmy skin, Was requiring inotropic support, as well as BiPAP. Continue dopamine drip for now, hold on home antihypertensive medications. Continue Lasix 40 IV twice daily Intake output charting Daily weight Telemetry monitoring Fluid restriction to 1 L Telemetry monitoring Monitor electrolytes and accordingly replace Acute on chronic decompensated heart failure with reduced ejection fraction Plan as above History of COPD: DuoNebs as needed Supplemental oxygen as needed History of coronary artery disease: Patient had recent attempted angiogram, which failed due to access related limitation. Has been on medical management since then, for now continue, aspirin Plavix statin History of recurrent UTI: Has grown ESBL in the past Follow urine culture Follow blood culture For now we will continue empirically on meropenem, ESBL recurrent infection could be colonization. History of hypertension: Hold antihypertensive for now CODE STATUS: Full code DVT prophylaxis: On Lovenox Attestations Medical Necessity Statement*: Patient is to be in hospital management of cardiogenic shock anticipated length of stay greater overnight Time Spent in Patient Care: Greater than 35 minutes Critical Care Time: The high probability of a clinically significant, sudden or life threatening deterioration of the patient's [] system(s) required my full and direct attention, intervention and personal management. The critical care time is as shown. This time is in addition to time spent performing any reported procedures but includes the following: [x] Data and vital sign review and interpretation [x] Patient assessment, examination and intervention [x] Documentation [x] Medication orders and management Critical Care Time (min): 37 Coding Level of Care Code Critical Care >/= 30 minutes Diagnoses Acute systolic CHF (congestive heart failure) I50.21 Essential hypertension I10 COPD (chronic obstructive pulmonary disease) J44.9 CAD (coronary artery disease) I25.10 UTI (urinary tract infection) N39.0 Cardiogenic shock R57.0 Lactic acidosis E87.20 Respiratory failure with hypoxia and hypercapnia J96.91; J96.92
--- NOTE | 2022-11-23 14:26 | ECG_ITS ---
[facility] Test Date: 2022-11-23 Pat Name: Denia Gerardo Department: Room: EDIP Gender: Female Swatch Checker: : 1945 Requested By: Ambrose Durán Order Number: [id number] Reading MD: MONIQUE ANGELES Measurements Intervals Pimento Rate: 83 P: 14 [place]: 163 QRS: 48 QRSD: 109 T: 78 QT: 413 QTc: 487 Interpretive Statements SINUS RHYTHM VOLTAGE CRITERIA FOR LVH [MEETS CRITERIA IN ONE OF: R(aVL), S(V1), R(V5), R(V5/V6)+S(V1)] POSSIBLE INFERIOR MYOCARDIAL INFARCTION , PROBABLY OLD [30 ms Q WAVE IN II/aVF] Compared to ECG 09/24/2022 20:09:36 Left ventricular hypertrophy now present Myocardial infarct finding now present T-wave abnormality no longer present Possible ischemia no longer present Electronically Signed On 11-23-2022 20:31:32 CDT by MONIQUE ANGELES [email or web address]
[2022-11-23] MEDS: enoxaparin 40 mg/0.4 mL Syringe SUBCUT (14:53)
--- NOTE | 2022-11-23 17:08 | PC.NURSE ---
Arrived from ED via gurney. AO x4, no c/o
--- NOTE | 2022-11-23 17:09 | PC.NURSE ---
Dr. Castelan gave v.o. to titrate Dopamine off
[2022-11-23] MEDS: meropenem 500 MG in sodium chloride 0.9% (plus) 50 ML 100 MG IV (20:04)
[2022-11-23] MEDS: atorvastatin 40 mg Tablet PO (20:08)
[2022-11-24] VITALS (28 sets, daily range): BP systolic 106–156; BP diastolic 49–76; PULSE 70–110; RESP 13–23; TEMP 36.5–37; O2SAT 90–99; BMI 24.1
[2022-11-24 03:15] LABS: Hematocrit 32.6 % (37.0-47.0); Hemoglobin 10.1 g/dL (11.5-15.3); Lymphocytes # 0.5 10^3/uL (0.8-4.8); Lymphocytes % 9.8 %; Mean Corpuscular Hemoglobin 29.8 pg (28.0-34.0); Mean Corpuscular Volume 96.2 fl (81-99); Mean Platelet Volume 10.4 fL (7.4-10.4); Monocytes # 0.2 10^3/uL (0.2-0.9); Monocytes % 3.3 %; Neutrophils # 3.99 10^3/uL (1.8-7.7); Neutrophils % 86.5 %; Nucleated Red Blood Cells % 0 %; Platelet Count 168 10^3/cmm (130-400); Red Blood Count 3.39 10^6/uL (4.1-5.3); Red Cell Distribution Width 13.5 % (12.1-15.1); White Blood Count 4.6 10^3/uL (4.0-10.0)
[2022-11-24 03:30] LABS: Alanine Aminotransferase 8 U/L (0-33); Albumin Level 3.5 g/dL (3.5-5.2); Alkaline Phosphatase 82 U/L (35-105); Anion Gap 14.9 (5-19); Aspartate Amino Transferase 13 U/L (0-32); Blood Urea Nitrogen 23 mg/dL (8-23); Carbon Dioxide 25 mmol/L (22-29); Chloride 105 mmol/L (98-107); Globulin 2.5 g/dL (1.3-4.6); Glucose 117 mg/dL (65-115); Magnesium 1.9 mg/dL (1.7-2.3); Osmolality Calculated 297 mOsm/kg (285-295); Potassium 3.9 mmol/L (3.5-5.1); Sodium 141 mmol/L (136-145); Total Bilirubin 0.3 mg/dL (0.15-1.2)
[2022-11-24 03:36] LABS: Procalcitonin 0.64 ng/mL (0-0.5)
[2022-11-24] MEDS: meropenem 500 MG in sodium chloride 0.9% (plus) 50 ML 100 MG IV ×2 (09:09→20:39)
[2022-11-24] MEDS: aspirin 81 mg EC Tablet PO (09:10)
[2022-11-24] MEDS: FUROsemide 10 mg/mL SDV 4mL 40 MG IVP ×2 (09:10→18:04)
[2022-11-24] MEDS: clopidogrel 75 mg Tablet PO (09:10)
--- NOTE | 2022-11-24 13:22 | P.PN_ITS ---
Subjective Subjective: Patient was seen and examined this morning shortness of breath had significantly improved, dopamine has been discontinued as she is maintaining a decent MAP. Robust urine output with Lasix. Medications: Medication Review Details: Generic Name Dose Route Start Last Admin Trade Name Deena PRN Reason Stop Dose Admin Aspirin 81 mg 11/24/22 09:00 11/24/22 09:10 Aspirin 81 Mg Ec Tablet PO 81 mg DAILY KORTNEY Administration Atorvastatin Calci um 40 mg 11/23/22 21:00 11/23/22 20:08 Atorvastatin 40 Mg Tablet PO 40 mg BEDTIME KORTNEY Administration Clopidogrel Bisulf ate 75 mg 11/24/22 09:00 11/24/22 09:10 Clopidogrel 75 M g Tablet PO 75 mg DAILY KORTNEY Administration Enoxaparin Sodium 40 mg 11/23/22 14:30 11/23/22 14:53 Enoxaparin 40 Mg /0.4 Ml Syringe SUBCUT 40 mg Q24H KORTNEY Administration Furosemide 40 mg 11/23/22 18:00 11/24/22 09:10 Furosemide 10 Mg /Ml Sdv 4ml IVP 40 mg BID KORTNEY Administration Meropenem 500 mg/ Sodium 50 mls @ 100 mls/ hr 11/23/22 20:00 11/24/22 09:09 Chloride IV 100 mls/hr Q12H KORTNEY Administration Protocol Vitals/I&O/Wt Last Vital Signs Temp 97.8 F 11/24/22 04:00 Pulse 93 11/24/22 12:00 Resp 23 H 11/24/22 12:00 BP 132/55 11/24/22 12:00 Pulse Ox 92 11/24/22 12:00 O2 Del Method 11/24/22 09:35 O2 Flow Rate 2 11/24/22 09:35 FiO2 60 11/23/22 13:05 11/23/22 11/24/22 11/24/22 22:59 06:59 14:59 Intake Total 196.52 / 257.395 100 / 357.395 912.605 / 912.605 Output Total 800 / 1650 400 / 2050 Balance -603.48 / -1392.605 -300 / -1692.605 912.605 / 912.605 Weight last 48 hrs Weight 58.06 kg Weight 58.967 kg Physical Exam Const: COMMON NORMALS: patient oriented x3 HENMT: COMMON NORMALS: normocephalic and atraumatic HEAD & SCALP: normocephalic and atraumatic Resp: COMMON NORMALS: clear to auscultation bilaterally AUSCULTATION: clear to auscultation bilaterally OTHER: Diminished air entry b/l Cardio: COMMON NORMALS: regular rate, regular rhythm, S1 normal heart sound present, S2 normal heart sound present, No gallops present (Cardio), No murmurs present (Cardio), No rub (Cardio) and Peripheral pulses 2+ throughout RATE: regular rate RHYTHM: regular rhythm HEART SOUNDS: S1 normal heart sound present and S2 normal heart sound present PERIPHERAL PULSES: Peripheral pulses 2+ throughout GI: COMMON NORMALS: Normal to inspection, nondistended, normoactive bowel sounds present, Soft to palpation, non-tender, No hepatosplenomegaly present and no masses AUSCULTATION: Yes normoactive bowel sounds PALPATION: Yes Soft to palpation and Yes No hepatosplenomegaly present RECTAL EXAM: deferred Extremity: COMMON NORMALS: no clubbing, cyanosis or edema and no pedal edema Neuro: COMMON NORMALS: patient oriented x3 Urinary Catheter Management: Velasquez: Cath Placed During This Visit: yes Reason for Continuing Indwelling Catheter: Accurate Measurement of Urinary Output in Critically Ill Patients Urinary Catheter Date of Insertion: 11/23/22 Urinary Catheter Time of Insertion: 10:39 Data 11/24/22 02:58 11/24/22 02:58 Micro: Microbiology 11/23/22 10:38 Blood Culture - Preliminary Blood NEGATIVE TO DATE 11/23/22 10:35 Blood Culture - Preliminary Blood NEGATIVE TO DATE 11/23/22 10:40 Urine Culture - Preliminary Urine,Clean Catch Gram Negative Rods A&P Assessment and plan (1) Acute systolic CHF (congestive heart failure): (2) Essential hypertension: (3) COPD (chronic obstructive pulmonary disease): (4) CAD (coronary artery disease): (5) UTI (urinary tract infection): (6) Cardiogenic shock: (7) Lactic acidosis: (8) Respiratory failure with hypoxia and hypercapnia: Plan Akin is a 76 year old female with past medical history of hypertension COPD coronary artery disease,HFrEF, recurrent UTI,ECSL, with right ureteral stent exchange, for ureteral obstruction and presence of chronic indwelling , came in today with chief complaint of worsening shortness of breath started this Monday she was also complaining of shortness of breath with minimal exertion as well as, orthopnea. Assessment: Cardiogenic shock: Patient meets criteria for cardiogenic shock, as she was hypotensive, with cold,calmy skin, Was requiring inotropic support, as well as BiPAP. Continue dopamine drip for now, hold on home antihypertensive medications. Continue Lasix 40 IV twice daily Intake output charting Daily weight Telemetry monitoring Fluid restriction to 1 L Telemetry monitoring Monitor electrolytes and accordingly replace Acute on chronic decompensated heart failure with reduced ejection fraction Plan as above History of COPD: DuoNebs as needed Supplemental oxygen as needed History of coronary artery disease: Patient had recent attempted angiogram, which failed due to access related almanza itation. Has been on medical management since then, for now continue, aspirin Plavix statin History of recurrent UTI: Has grown ESBL in the past Follow urine culture Follow blood culture For now we will continue empirically on meropenem, ESBL recurrent infection could be colonization. History of hypertension: Hold antihypertensive for now CODE STATUS: Full code DVT prophylaxis: On Lovenox Attestations Medical Necessity Statement*: In hospital for management of decompensated heart failure Coding Level of Care Code 91039 Diagnoses Acute systolic CHF (congestive heart failure) I50.21 Essential hypertension I10 COPD (chronic obstructive pulmonary disease) J44.9 CAD (coronary artery disease) I25.10 UTI (urinary tract infection) N39.0 Cardiogenic shock R57.0 Lactic acidosis E87.20 Respiratory failure with hypoxia and hypercapnia J96.91; J96.92
[2022-11-24] MEDS: enoxaparin 40 mg/0.4 mL Syringe SUBCUT (16:46)
[2022-11-24] MEDS: atorvastatin 40 mg Tablet PO (20:40)
[2022-11-25 04:11] VITALS: BP 139/70; PULSE 89; RESP 18; TEMP 36.6; O2SAT 92
[2022-11-25 05:08] LABS: Basophils % 0.3 %; Eosinophils % 0.6 %; Hematocrit 35.9 % (37.0-47.0); Hemoglobin 11.3 g/dL (11.5-15.3); Lymphocytes # 1.7 10^3/uL (0.8-4.8); Lymphocytes % 23.3 %; Mean Corpuscular HGB Conc 31.5 g/dL (30.0-36.0); Mean Corpuscular Hemoglobin 29.8 pg (28.0-34.0); Mean Corpuscular Volume 94.7 fl (81-99); Mean Platelet Volume 10.5 fL (7.4-10.4); Monocytes # 0.5 10^3/uL (0.2-0.9); Monocytes % 6.5 %; Neutrophils # 4.88 10^3/uL (1.8-7.7); Neutrophils % 68.7 %; Nucleated Red Blood Cells % 0 %; Platelet Count 207 10^3/cmm (130-400); Red Blood Count 3.79 10^6/uL (4.1-5.3); Red Cell Distribution Width 13.6 % (12.1-15.1); White Blood Count 7.1 10^3/uL (4.0-10.0)
[2022-11-25 05:40] LABS: Alanine Aminotransferase 8 U/L (0-33); Albumin Level 3.7 g/dL (3.5-5.2); Alkaline Phosphatase 89 U/L (35-105); Anion Gap 16.5 (5-19); Aspartate Amino Transferase 12 U/L (0-32); Blood Urea Nitrogen 31 mg/dL (8-23); Carbon Dioxide 27 mmol/L (22-29); Chloride 102 mmol/L (98-107); Globulin 2.7 g/dL (1.3-4.6); Glucose 78 mg/dL (65-115); Osmolality Calculated 299 mOsm/kg (285-295); Potassium 3.5 mmol/L (3.5-5.1); Sodium 142 mmol/L (136-145); Total Bilirubin 0.3 mg/dL (0.15-1.2); Total Protein 6.4 g/dL (6.6-8.7)
[2022-11-25 05:51] LABS: Creatinine Clr Calc Pharmacy 30.1664
[2022-11-25 08:00] VITALS: BP 147/74; PULSE 117; PULSE 83; RESP 16; RESP 18; TEMP 36.3; O2SAT 94; O2SAT 98
[2022-11-25] MEDS: meropenem 500 MG in sodium chloride 0.9% (plus) 50 ML 100 MG IV (08:50)
[2022-11-25] MEDS: FUROsemide 10 mg/mL SDV 4mL 40 MG IVP (08:51)
[2022-11-25] MEDS: clopidogrel 75 mg Tablet PO (08:52)
[2022-11-25] MEDS: aspirin 81 mg EC Tablet PO (08:52)
[2022-11-25] MEDS: ipratropium-albuterol 3 mL Neb INHALATION (09:53)
[2022-11-25 09:54] VITALS: PULSE 117; RESP 18; O2SAT 98
--- NOTE | 2022-11-25 10:21 | P.DS_ITS ---
Discharge Providers Date of Admission: 11/23/22 14:08 Date of Discharge: November 25, 2022 Attending Provider at Admission: Timothy Castelan MD Attending Provider at Discharge: Timothy Castelan MD Primary Care Provider: Catalino Sanders MD Diagnoses at Discharge Discharge Diagnosis (1) Acute systolic CHF (congestive heart failure): Status: Acute (2) Essential hypertension: Status: Acute (3) COPD (chronic obstructive pulmonary disease): Status: Acute (4) CAD (coronary artery disease): Status: Acute (5) UTI (urinary tract infection): Status: Acute (6) Cardiogenic shock: Status: Acute (7) Lactic acidosis: Status: Acute (8) Respiratory failure with hypoxia and hypercapnia: Status: Acute Reason for Visit Reason for Visit: CHF Hospital Course Hospital Course ?76 year old female with past medical history of hypertension COPD coronary artery disease,HFrEF, recurrent UTI,ECSL, with right ureteral stent exchange, for ureteral obstruction and presence of chronic indwelling ,came in with chief complaint of worsening shortness of breath, orthopnea PND, further work-up revealed that she is in cardiogenic shock, she was admitted for the management of cardiogenic shock, initially she was kept on dopamine drip , as well as IV diuresis, to which she responded well, later dopamine drip were discontinued, as her hypotension had resolved, she was continued on IV diuresis, with good urine output, initially she was also kept on BiPAP which was later discontinued, at the time of discharge she was saturating well on room air, she denied any shortness of breath, was hemodynamically stable, she was discharged home on 40 Lasix p.o. daily as well as oral potassium supplement. She was initially kept on meropenem for history of recurrent UTI, mostly ESBL, urine culture at this time is growing gram-negative lynn, blood culture has been negative, no antibiotic was continued on discharge as there is a good possibility of colonization, patient was continued to be managed for her coronary artery disease, she was continued on aspirin Plavix, beta-amado, lisinopril. Overall patient responded well to above medical management and is being discharged in stable condition to home.She will continue to follow cardiology as well as PCP as outpatient. Physical Exam Const: COMMON NORMALS: patient oriented x3 HENMT: COMMON NORMALS: normocephalic and atraumatic HEAD & SCALP: normocephalic and atraumatic Resp: COMMON NORMALS: clear to auscultation bilaterally AUSCULTATION: clear to auscultation bilaterally Cardio: COMMON NORMALS: regular rate, regular rhythm, S1 normal heart sound present, S2 normal heart sound present, No gallops present (Cardio), No murmurs present (Cardio), No rub (Cardio) and Peripheral pulses 2+ throughout RATE: regular rate RHYTHM: regular rhythm HEART SOUNDS: S1 normal heart sound present and S2 normal heart sound present PERIPHERAL PULSES: Peripheral pulses 2+ throughout GI: COMMON NORMALS: Normal to inspection, nondistended, normoactive bowel sounds present, Soft to palpation, non-tender, No hepatosplenomegaly present and no masses AUSCULTATION: Yes normoactive bowel sounds PALPATION: Yes Soft to palpation and Yes No hepatosplenomegaly present RECTAL EXAM: deferred Extremity: COMMON NORMALS: no clubbing, cyanosis or edema and no pedal edema Neuro: COMMON NORMALS: patient oriented x3 Urinary Catheter Management: Velasquez: Cath Placed During This Visit: yes Reason for Continuing Indwelling Catheter: Other Urinary Catheter Date of Insertion: 11/23/22 Urinary Catheter Time of Insertion: 10:39 Discharge Data Studies Completed and Pending Completed Studies During Hospitalization Category Date Time Status XR chest 1V portable [id number] Stat Exams 11/23/22 10:25 Completed Pending at discharge Category Date Time Status Blood Culture Stat Lab 11/23/22 10:38 Results Complete Blood Count w/Auto AM LABS Lab 11/26/22 04:00 Ordered Comprehensive Metabolic Panel AM LABS Lab 11/26/22 04:00 Ordered Urine Culture Stat Lab 11/23/22 10:40 Results Radiology Impressions Chest X-Ray 11/23/22 10:25 IMPRESSION: Findings most compatible with congestive heart failure. Laboratory Results WBC 7.1 10^3/uL (4.0-10.0) 11/25/22 04:36 RBC 3.79 10^6/uL (4.1-5.3) L 11/25/22 04:36 Hgb 11.3 g/dL (11.5-15.3) L 11/25/22 04:36 Hct 35.9 % (37.0-47.0) L 11/25/22 04:36 MCV 94.7 fl (81-99) 11/25/22 04:36 MCH 29.8 pg (28.0-34.0) 11/25/22 04:36 MCHC 31.5 g/dL (30.0-36.0) 11/25/22 04:36 RDW 13.6 % (12.1-15.1) 11/25/22 04:36 Plt Count 207 10^3/cmm (130-400) 11/25/22 04:36 MPV 10.5 fL (7.4-10.4) H 11/25/22 04:36 Neut % (Auto) 68.7 % 11/25/22 04:36 Lymph % (Auto) 23.3 % 11/25/22 04:36 [place] % (Auto) 6.5 % 11/25/22 04:36 Eos % (Auto) 0.6 % 11/25/22 04:36 Baso % (Auto) 0.3 % 11/25/22 04:36 Neut # (Auto) 4.88 10^3/uL (1.8-7.7) 11/25/22 04:36 Lymph # (Auto) 1.7 10^3/uL (0.8-4.8) 11/25/22 04:36 [place] # (Auto) 0.5 10^3/uL (0.2-0.9) 11/25/22 04:36 Eos # (Auto) 0.0 10^3/uL (0.0-0.8) 11/25/22 04:36 Baso # (Auto) 0.0 10^3/uL (0.0-0.1) 11/25/22 04:36 Nucleated RBC % (auto) 0 % 11/25/22 04:36 Nucleated RBCs # 0.0 /100WBC 11/25/22 04:36 Specimen Type Arterial 11/23/22 11:18 Sample Site Radial, left 11/23/22 11:18 ABG pH 7.29 (7.35-7.45) L 11/23/22 11:18 ABG pCO2 40.5 mmHg (35-45) 11/23/22 11:18 ABG pO2 97.7 mmHg (80.0-100.0) 11/23/22 11:18 ABG HCO3 19.6 mmol/L (22-26) L 11/23/22 11:18 ABG O2 Saturation 97.9 11/23/22 11:18 ABG Base Excess -6.5 mmol/L (-2.0-2.0) L 11/23/22 11:18 Roby Test Pos 11/23/22 11:18 A-a O2 Gradient 36.7 mmHg (5-10) H 11/23/22 11:18 Hematocrit 33.6 % (37-47) L 11/23/22 11:18 Hgb O2 Saturation 95.0 % (95-100) 11/23/22 11:18 Carboxyhemoglobin 2.0 %THgb (0.4-20.1) 11/23/22 11:18 Methemoglobin 0.9 % (0.4-1.5) 11/23/22 11:18 Total Hemoglobin 11.0 g/dL (12-16) L 11/23/22 11:18 Sodium 142.0 mmol/L (131-143) 11/23/22 11:18 Potassium 3.7 mmol/L (3.5-5.0) 11/23/22 11:18 Glucose 189.0 mg/dL (70-115) H 11/23/22 11:18 Ionized Calcium 1.3 mmol/L (1.1-1.4) 11/23/22 11:18 O2 Delivery Device Bipap 11/23/22 11:18 FiO2 60.0 % 11/23/22 11:18 Senior Field Engineer ID [email or web address] 11/23/22 11:18 Blood Gas Notified Time 0911/23/22 10:31 Sodium 142 mmol/L (136-145) 11/25/22 04:36 Potassium 3.5 mmol/L (3.5-5.1) 11/25/22 04:36 Chloride 102 mmol/L (98-107) 11/25/22 04:36 Carbon Dioxide 27 mmol/L (22-29) 11/25/22 04:36 Anion Gap 16.5 (5-19) 11/25/22 04:36 BUN 31 mg/dL (8-23) H 11/25/22 04:36 Creatinine 1.3 mg/dL (0.5-0.9) H 11/25/22 04:36 GFR Calculation Not Reportable 11/25/22 04:36 Glucose 78 mg/dL (65-115) 11/25/22 04:36 POC Glucose 269 mg/dL (70-110) H 11/23/22 10:31 Calculated Osmolality 299 mOsm/kg (285-295) H 11/25/22 04:36 Lactic Acid 4.5 mmol/L (0.5-2.2) H* 11/23/22 10:24 Lactic Acid (Sepsis) 1.3 mmol/L (0.5-2.2) 11/23/22 13:12 Calcium 9.0 mg/dL (8.5-10.5) 11/25/22 04:36 Magnesium 1.9 mg/dL (1.7-2.3) 11/24/22 02:58 Total Bilirubin 0.3 mg/dL (0.15-1.2) 11/25/22 04:36 AST 12 U/L (0-32) 11/25/22 04:36 ALT 8 U/L (0-33) 11/25/22 04:36 Alkaline Phosphatase 89 U/L (35-105) 11/25/22 04:36 NT-Pro-B Natriuret Pep 32876 pg/mL (0-450) H 11/23/22 10:24 Total Protein 6.4 g/dL (6.6-8.7) L 11/25/22 04:36 Albumin 3.7 g/dL (3.5-5.2) 11/25/22 04:36 Globulin 2.7 g/dL (1.3-4.6) 11/25/22 04:36 Lipase 29 U/L (13-60) 11/23/22 10:24 Procalcitonin 0.64 ng/mL (0-0.5) H 11/24/22 02:58 Urine Color Yellow (Yellow) 11/23/22 10:40 Urine Appearance Cloudy (CLEAR) A 11/23/22 10:40 Urine pH 5 (5-7) 11/23/22 10:40 Ur Specific [place] 1.015 (1.005-1.030) 11/23/22 10:40 Urine Protein 1+ (Negative) H 11/23/22 10:40 Urine Glucose (UA) Norm (Normal) 11/23/22 10:40 Urine Ketones Negative (Negative) 11/23/22 10:40 Urine Blood 3+ (Negative) H 11/23/22 10:40 Urine Nitrate Positive (Negative) H 11/23/22 10:40 Urine Bilirubin Neg (Negative) 11/23/22 10:40 Urine Urobilinogen Neg mg/dL (Negative) 11/23/22 10:40 Ur Leukocyte Esterase 2+ (Negative) H 11/23/22 10:40 Urine RBC 50-80 /hpf (0-2) H 11/23/22 10:40 Urine WBC Too numerous to cnt /hpf (0-5) H 11/23/22 10:40 Ur Squamous Epith Cells 0-4 /hpf (0-5) H 11/23/22 10:40 Amorphous Sediment Not Reportable 11/23/22 10:40 Urine Bacteria 1+ /hpf (NONE) H 11/23/22 10:40 Salicylates < 0.3 mg/dL (3-10) L 11/23/22 10:24 Acetaminophen < 5.0 ug/mL (10-30) L 11/23/22 10:24 Serum Ketones Negative (Negative) 11/23/22 10:24 SARS-CoV-2 Ag (Rapid) negative (Negative) 11/23/22 10:53 Vitals Last Vital Signs Temp 97.4 F L 11/25/22 08:00 Pulse 117 H 11/25/22 09:54 Resp 18 11/25/22 09:54 BP 147/74 11/25/22 08:00 Pulse Ox 98 11/25/22 09:54 O2 Del Method 11/25/22 09:54 O2 Flow Rate 2 11/24/22 09:35 FiO2 60 11/23/22 13:05 Discharge Plan Discharge Patient Disposition: Home Condition: Stable Prescriptions: New Lasix 40 mg tablet 40 mg PO DAILY Qty: 30 1RF Klor-Con 20 mEq packet 20 meq PO DAILY Qty: 30 0RF Continued acetaminophen [Tylenol] 325 mg tablet 325 mg PO QID PRN (Reason: Pain) lisinopril 5 mg tablet 5 mg PO DAILY nitroglycerin 0.4 mg tablet, sublingual 0.4 mg sublingual Q5M PRN (Reason: chest pain) Qty: 25 3RF Rx Instructions: do not exceed 3 doses per episode fluticasone propionate [Flonase Allergy Relief] 50 mcg/actuation spray,suspension 1 spray intranasal DAILY Rx Instructions: administer into each nostril methenamine hippurate 1 gram tablet 1 g PO BID Qty: 60 12RF Rx Instructions: Take 1000 mg of Vitamin C with each dose of Methenamine clopidogrel 75 mg tablet 75 mg PO DAILY Hold Instructions: Resume on 11/22/22. metoprolol tartrate 50 mg tablet 50 mg PO BID ascorbic acid (vitamin C) [Vitamin C] 1,000 mg Tablet 1,000 mg PO BID atorvastatin 40 mg Tablet 40 mg PO BEDTIME Qty: 60 0RF aspirin 81 mg Tablet,Delayed Release (Dr/Ec) 81 mg PO DAILY Qty: 30 0RF Discontinued furosemide 20 mg tablet 40 mg PO BID PRN (Reason: fluid retention) Discharge Orders: Discharge Order (Routine); Ordered 11/25/22 Ordered By: Timothy Castelan Referrals: Bianca Lawrence FNP [Nurse Practitioner] - 12/08/22 9:15 am Catalino Sanders MD [Primary Care Provider] - 12/05/22 7:00 am Discharge Diet: Cardiac Patient Instructions: Furosemide (By mouth), Potassium Chloride (By mouth), Opioid Safety, Pain Management Discharge Attestations Time Spent in Discharge Care*: less than 30 min Quality Metrics Clinical Quality Measures [ No reported AMI, CVA or VTE this stay] Coding Level of Care Code Acute Code for Chg Fwd Diagnoses Acute systolic CHF (congestive heart failure) I50.21 Essential hypertension I10 COPD (chronic obstructive pulmonary disease) J44.9 CAD (coronary artery disease) I25.10 UTI (urinary tract infection) N39.0 Cardiogenic shock R57.0 Lactic acidosis E87.20 Respiratory failure with hypoxia and hypercapnia J96.91; J96.92
== END 2022-11-25 12:04 | disposition home or self-care (01) | DRG 291 ==
LOC: ER 12:28 → ER IP 13:56 → ICU 15:21 → MEDSURG 11-24 16:17
PROVIDERS: Admitting Provider Internal Medicine; Emergency Provider Family Medicine; PCP Family Medicine; Visit Provider Internal Medicine
DX: I11.0 Hypertensive heart disease with heart failure (principal); I50.23 Acute on chronic systolic (congestive) heart failure; R57.0 Cardiogenic shock; J96.92 Respiratory failure, unspecified with hypercapnia; J96.91 Respiratory failure, unspecified with hypoxia; E87.20 Acidosis, unspecified; N39.0 Urinary tract infection, site not specified; J43.9 Emphysema, unspecified; I25.10 Atherosclerotic heart disease of native coronary artery without angina pectoris; Z87.440 Personal history of urinary (tract) infections; Z96.0 Presence of urogenital implants; Z79.02 Long term (current) use of antithrombotics/antiplatelets; Z79.82 Long term (current) use of aspirin; I95.9 Hypotension, unspecified; I42.9 Cardiomyopathy, unspecified; E78.5 Hyperlipidemia, unspecified; I25.2 Old myocardial infarction; I73.9 Peripheral vascular disease, unspecified; Z96.641 Presence of right artificial hip joint; F17.210 Nicotine dependence, cigarettes, uncomplicated
CPT/HCPCS: 36415; 36416; 36556; 36592; 36600; 51702; 71045; 74018; 80051; 80053; 80307; 81001; 82009; 82330; 82805; 82810; 82962; 83605; 83690; 83735; 83880; 84145; 85025; 87040; 87077; 87086; 87186; 87426; 93005; 94640; 94660; 96365; 96372; 96375; 99285; C1751; C1874; J1265; J1650; J1940; J1956; J2185; J2270; J2370; J2704; J2710; J2930; J3490; J7030; J7613; J7644

== ENCOUNTER → 2022-12-08 09:18 | Outpatient (BNVA) | payer MEDICARE, MEDICAID, SELFPAY | PROVIDERS: PCP Family Medicine; Visit Provider Nurse Practitioner Family | DX: I11.0 Hypertensive heart disease with heart failure (principal); I50.20 Unspecified systolic (congestive) heart failure; F17.210 Nicotine dependence, cigarettes, uncomplicated; Z79.82 Long term (current) use of aspirin | CPT/HCPCS: 99213 ==

== ENCOUNTER 2023-01-22 18:52 | Inpatient (IN) | payer MEDICARE, MEDICAID, SELFPAY ==
[2023-01-22] VITALS (10 sets, daily range): BP systolic 109–153; BP diastolic 53–65; PULSE 86–102; RESP 12–32; TEMP 36.4–36.9; O2SAT 95–100; BMI 20.7
--- NOTE | 2023-01-22 19:01 | XRR_ITS ---
PROCEDURE INFORMATION: Exam: XR Chest Exam date and time: 01/22/2023 7:10 PM Age: 77 years old Clinical indication: Shortness of breath; Additional info: SOB TECHNIQUE: Imaging protocol: Radiologic exam of the chest. Views: 1 view. COMPARISON: CR XR chest 1V portable [id number] 11/23/2022 10:43 AM FINDINGS: Lungs: Diffuse coarsening of the lung parenchyma. Increased interstitial lung markings particularly at the lung bases. No consolidation. Pleural spaces: Unremarkable. No pleural effusion. No pneumothorax. Heart/Mediastinum: Unremarkable. No cardiomegaly. Bones/joints: Rotator cuff anchor noted in the left humeral head. XR/XR chest 1V portable [id number] IMPRESSION: Findings consistent with interstitial pulmonary edema.
--- NOTE | 2023-01-22 19:05 | ECG_ITS ---
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 Measurements Intervals [place] Rate: 93 P: -7 HI: 166 QRS: 61 QRSD: 100 T: -73 QT: 366 QTc: 455 Interpretive Statements SINUS RHYTHM LEFT VENTRICULAR HYPERTROPHY AND ST-T CHANGE [VOLTAGE CRITERIA PLUS ST/T ABNORMALITY] Compared to ECG 11/23/2022 14:26:16 ST (T wave) deviation now present Myocardial infarct finding no longer present Electronically Signed On 01-22-2023 21:16:11 CDT by David Horne M.D. [email or web address]
[2023-01-22 19:17] LABS: Basophils % 0.6 %; Eosinophils # 0.1 10^3/uL (0.0-0.8); Hematocrit 39.5 % (37.0-47.0); Hemoglobin 12.2 g/dL (11.5-15.3); Lymphocytes # 1.7 10^3/uL (0.8-4.8); Lymphocytes % 24.5 %; Mean Corpuscular HGB Conc 30.9 g/dL (30.0-36.0); Mean Corpuscular Hemoglobin 30.2 pg (28.0-34.0); Mean Corpuscular Volume 97.8 fl (81-99); Mean Platelet Volume 11.1 fL (7.4-10.4); Monocytes # 0.5 10^3/uL (0.2-0.9); Monocytes % 7.3 %; Neutrophils # 4.64 10^3/uL (1.8-7.7); Neutrophils % 66.3 %; Nucleated Red Blood Cells % 0 %; Platelet Count 195 10^3/cmm (130-400); Red Blood Count 4.04 10^6/uL (4.1-5.3); Red Cell Distribution Width 14.8 % (12.1-15.1)
--- NOTE | 2023-01-22 19:17 | ED_ITS ---
HPI - SOB/Dyspnea General: Chief Complaint: Shortness of Breath/Dyspnea Stated Complaint: SOB Time Seen by Provider: 01/22/23 18:54 Source: patient History of Present Illness: HPI Narrative: 77-year-old female with a history of CHF. She presents with increasing shortness of breath with some chest discomfort. She does not usually wear oxygen at home. She has noted increased cough with some clear sputum production. No increased leg swelling. No fever. No sick contacts. Chest discomfort is minimal at this point. MD elicited complaint: shortness of breath Pertinent past history: congestive heart failure Onset (ago): hour(s) Timing: constant and progressively worsening Severity: moderate Exacerbating factors: lying flat Relieving factors: oxygen Associated symptoms: Reports chest congestion, chest pain, cough, nausea and orthopnea; Deny abdominal pain, dizziness, fever(s) or vomiting Treatment prior to arrival: oxygen Review of Systems Const: Denies: fever(s) ENMT: Denies: throat pain Card: Reports: chest pain and orthopnea Resp: Reports: dyspnea, productive cough and chest congestion GI: Reports: nausea; Denies: abdominal pain or vomiting Skin/Breast: Denies: rash Neuro: Denies: dizziness PFS ED PFSH: Medical History Acute systolic CHF (congestive heart failure) CAD (coronary artery disease) Cardiogenic shock Cardiomyopathy COPD (chronic obstructive pulmonary disease) Cystitis Dyslipidemia Elevated troponin Elevated troponin I level Emphysema lung Essential hypertension Extrinsic ureteral obstruction Heart failure, systolic, with acute decompensation Hypoxia Lactic acidosis NSTEMI (non-ST elevated myocardial infarction) Peripheral arterial disease Respiratory failure with hypoxia and hypercapnia Retained ureteral stent Syncope and collapse Systolic CHF Tobacco abuse Urinary incontinence UTI (urinary tract infection) Surgical History H/O arthroscopic knee surgery bilateral H/O oral surgery H/O shoulder surgery H/O total hip arthroplasty right H/O: H/O: hysterectomy History of colon surgery Family History Mother , at age 79 Hypertension Peripheral artery disease Diabetes Father , at age 47 Cancer pancreatic and lung Social History Smoking and tobacco status: current some day smoker (quitting) cigarettes Packs smoked per day: 0.5 Years cigarettes smoked: 60 [ Other cigarette details: Hx of 1 PPD x 50 Years] Second hand smoke exposure: Yes Smoking risk assessment/counseling performed?: Yes Alcohol intake: never Substance/Drug Use: never Lives independently: Yes Housing: Apartment Marital status: Legally Current occupational status: retired and disabled Do you think of yourself as: Straight/Heterosexual Current gender identity: Female Physical Exam Const: GENERAL APPEARANCE: in distress (Mild), ill appearing and frail appearing HENMT: COMMON NORMALS: normocephalic, atraumatic and Normal external nose present HEAD & SCALP: normocephalic and atraumatic FACE & SINUS: normal facial exam and face symmetric NOSE: Normal external nose present Eye: COMMON NORMALS: Equal, round and reactive pupils present and EOMs intact bilaterally PUPIL: Yes Equal, round and reactive pupils present Neck/C-Spine: GENERAL: Yes trachea midline Chest: CHEST: Yes Symmetrical chest wall rise Resp: COMMON NORMALS: clear to auscultation bilaterally EFFORT & INSPECTION: Yes tachypneic and Yes labored AUSCULTATION: clear to auscultation bilaterally and diminished lung sounds Cardio: COMMON NORMALS: regular rate and regular rhythm RATE: regular rate RHYTHM: regular rhythm GI: COMMON NORMALS: Normal to inspection, nondistended, normoactive bowel sounds present Extremity: COMMON NORMALS: no pedal edema Neuro: HERNANDEZ COMA SCALE: document GCS findings Hernandez coma scale eye opening: Spontaneous Hernandez coma scale verbal response: Orientated [place] coma scale motor response: Obey commands Hernandez coma scale total score: 15 SENSO RY EXAM: Yes extremities (intact) Psych: COMMON NORMALS: speech normal SPEECH: Yes normal speech Skin: COMMON NORMALS: no rashes or lesions noted GENERAL SKIN EXAM: no rashes or lesions noted Course Vital Signs: Vital signs: Vital Signs Temperature 97.6 F 01/22/23 18:53 Pulse Rate 86 01/22/23 20:45 Respiratory Rate 13 01/22/23 20:45 Blood Pressure 130/55 01/22/23 20:45 Pulse Oximetry 100 01/22/23 20:45 Oxygen Delivery Me thod BiPAP 01/22/23 20:45 Oxygen Flow Rate 2 01/22/23 19:34 Fraction of Inspir ed Oxygen 30 01/22/23 20:45 MDM - SOB/Dyspnea Medical Decision Making Chest x-ray shows congestive heart failure/pulmonary edema. CBC is normal. BMP is not remarkable. Baseline troponin is 26 which is not far off her previous baselines. However, BNP is 21,000 with a creatinine of 0.9. Potassium is normal. pH 7.44 on blood gas testing, but PO2 is only 67 on 2 L. The patient is not on oxygen at home normally. She is still quite tachypneic. Because of her acute tachypnea, respiratory distress, low O2 and findings of heart failure, she will be admitted. She will be placed on BiPAP for a couple of hours to improve oxygenation of wet lungs. She has gotten transdermal Nitropaste as well as 60 mg Lasix IV. Spoke with hospitalist. She has seen the patient in the ER. Lab Data 01/22/23 18:40 01/22/23 18:40 Labs/Radiology: Radiology Impressions Chest X-Ray 01/22/23 19:01 IMPRESSION: Findings consistent with interstitial pulmonary edema. Laboratory Results WBC 7.0 10^3/uL (4.0-10.0) 01/22/23 18:40 RBC 4.04 10^6/uL (4.1-5.3) L 01/22/23 18:40 Hgb 12.2 g/dL (11.5-15.3) 01/22/23 18:40 Hct 39.5 % (37.0-47.0) 01/22/23 18:40 MCV 97.8 fl (81-99) 01/22/23 18:40 MCH 30.2 pg (28.0-34.0) 01/22/23 18:40 MCHC 30.9 g/dL (30.0-36.0) 01/22/23 18:40 RDW 14.8 % (12.1-15.1) 01/22/23 18:40 Plt Count 195 10^3/cmm (130-400) 01/22/23 18:40 MPV 11.1 fL (7.4-10.4) H 01/22/23 18:40 Neut % (Auto) 66.3 % 01/22/23 18:40 Lymph % (Auto) 24.5 % 01/22/23 18:40 [place] % (Auto) 7.3 % 01/22/23 18:40 Eos % (Auto) 1.0 % 01/22/23 18:40 Baso % (Auto) 0.6 % 01/22/23 18:40 Neut # (Auto) 4.64 10^3/uL (1.8-7.7) 01/22/23 18:40 Lymph # (Auto) 1.7 10^3/uL (0.8-4.8) 01/22/23 18:40 [place] # (Auto) 0.5 10^3/uL (0.2-0.9) 01/22/23 18:40 Eos # (Auto) 0.1 10^3/uL (0.0-0.8) 01/22/23 18:40 Baso # (Auto) 0.0 10^3/uL (0.0-0.1) 01/22/23 18:40 Nucleated RBC % (auto) 0 % 01/22/23 18:40 Nucleated RBCs # 0.0 /100WBC 01/22/23 18:40 Specimen Type Arterial 01/22/23 19:35 Sample Site Brachial, left 01/22/23 19:35 ABG pH 7.44 (7.35-7.45) 01/22/23 19:35 ABG pCO2 29.5 mmHg (35-45) L 01/22/23 19:35 ABG pO2 67.2 mmHg (80.0-100.0) L 01/22/23 19:35 ABG HCO3 20.1 mmol/L (22-26) L 01/22/23 19:35 ABG Base Excess -3.2 mmol/L (-2.0-2.0) L 01/22/23 19:35 Roby Test Pos 01/22/23 19:35 Hematocrit 32.7 % (37-47) L 01/22/23 19:35 Hgb O2 Saturation 92.6 % (95-100) L 01/22/23 19:35 Carboxyhemoglobin 2.1 %THgb (0.4-20.1) 01/22/23 19:35 Methemoglobin 0.8 % (0.4-1.5) 01/22/23 19:35 Total Hemoglobin 10.7 g/dL (12-16) L 01/22/23 19:35 O2 Delivery Device Nc 01/22/23 19:35 O2 Liters/Min 2.0 % 01/22/23 19:35 Aluminum Boats Assembler ID [email or web address] 01/22/23 19:35 Sodium 142 mmol/L (136-145) 01/22/23 18:40 Potassium 4.0 mmol/L (3.5-5.1) 01/22/23 18:40 Chloride 107 mmol/L (98-107) 01/22/23 18:40 Carbon Dioxide 21 mmol/L (22-29) L 01/22/23 18:40 Anion Gap 18.0 (5-19) 01/22/23 18:40 BUN 19 mg/dL (8-23) 01/22/23 18:40 Creatinine 0.9 mg/dL (0.5-0.9) 01/22/23 18:40 GFR Calculation Not Reportable 01/22/23 18:40 Glucose 88 mg/dL (65-115) 01/22/23 18:40 Calculated Osmolality 296 mOsm/kg (285-295) H 01/22/23 18:40 Lactic Acid 2.1 mmol/L (0.5-2.2) 01/22/23 19:13 Calcium 9.3 mg/dL (8.5-10.5) 01/22/23 18:40 Total Bilirubin 0.3 mg/dL (0.15-1.2) 01/22/23 18:40 AST 26 U/L (0-32) 01/22/23 18:40 ALT 18 U/L (0-33) 01/22/23 18:40 Alkaline Phosphatase 133 U/L (35-105) H 01/22/23 18:40 Troponin T Baseline 26 ng/L (0-10) H 01/22/23 18:40 NT-Pro-B Natriuret Pep 98979 pg/mL (0-450) H 01/22/23 18:40 Total Protein 7.2 g/dL (6.6-8.7) 01/22/23 18:40 Albumin 4.4 g/dL (3.5-5.2) 01/22/23 18:40 Globulin 2.8 g/dL (1.3-4.6) 01/22/23 18:40 SARS-CoV-2 Ag (Rapid) negative (Negative) 01/22/23 19:30 Discharge Plan Discharge Patient Disposition: Admitted As Inpatient Admit Provider: Saima Ozuna Clinical Impression: Systolic CHF, Pulmonary edema, Acute respiratory failure with hypoxia Condition: Fair Coding Level of Care Code ED Chief Relay Tester for Isi Calhoun
[2023-01-22] MEDS: ipratropium-albuterol 3 mL Neb INHALATION (19:18)
[2023-01-22] MEDS: FUROsemide 10 mg/mL SDV 10mL 60 MG IVP (19:20)
[2023-01-22 19:36] LABS: Lactic Sepsis W/Reflex 2.1 mmol/L (0.5-2.2)
[2023-01-22 19:38] LABS: Troponin(5th) Baseline 26 ng/L (0-10)
[2023-01-22 19:43] LABS: Alanine Aminotransferase 18 U/L (0-33); Albumin Level 4.4 g/dL (3.5-5.2); Alkaline Phosphatase 133 U/L (35-105); Aspartate Amino Transferase 26 U/L (0-32); Blood Urea Nitrogen 19 mg/dL (8-23); Calcium 9.3 mg/dL (8.5-10.5); Carbon Dioxide 21 mmol/L (22-29); Chloride 107 mmol/L (98-107); Globulin 2.8 g/dL (1.3-4.6); Glucose 88 mg/dL (65-115); NT Pro B Type Natriuretic Pept 20990 pg/mL (0-450); Osmolality Calculated 296 mOsm/kg (285-295); Sodium 142 mmol/L (136-145); Total Bilirubin 0.3 mg/dL (0.15-1.2); Total Protein 7.2 g/dL (6.6-8.7)
[2023-01-22 19:44] LABS: ABG PCO2 29.5 mmHg (35-45); ABG PH Result 7.44 (7.35-7.45); Arterial Blood Gas Hematocrit 32.7 % (37-47); Base Excess ABG -3.2 mmol/L (-2.0-2.0); Blood Gas Allen Test Pos; Blood Gas Sample Site Brachial, left; Blood Gas Sample Type Arterial; Carboxyhemoglobin 2.1 %THgb (0.4-20.1); HCO3 ABG 20.1 mmol/L (22-26); HGB O2 Sat 92.6 % (95-100); Methemoglobin 0.8 % (0.4-1.5); Oxygen Device NC; PO2 ABG 67.2 mmHg (80.0-100.0); Total Hemoglobin 10.7 g/dL (12-16)
[2023-01-22 20:06] LABS: SARS Covid-2 Antigen negative (Negative)
[2023-01-22] MEDS: nitroglycerin 1 gm/inch oint Pkt 0.5 INCH TOPICAL (20:42)
--- NOTE | 2023-01-22 21:01 | ECG_ITS ---
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 Measurements Intervals [place] Rate: 91 P: 211 [place]: 160 QRS: 211 QRSD: 95 T: 210 QT: 381 QTc: 470 Interpretive Statements ECTOPIC ATRIAL RHYTHM POSSIBLE RIGHT VENTRICULAR HYPERTROPHY [SOME/ALL OF: PROMINENT R IN V1, LATE TRANSITION, RAD, CALI, SSS] LEFT VENTRICULAR HYPERTROPHY AND ST-T CHANGE [VOLTAGE CRITERIA PLUS ST/T ABNORMALITY] LATERAL MYOCARDIAL INFARCTION , OF INDETERMINATE AGE [40+ ms Q WAVE AND/OR ST/T ABNORMALITY IN I/aVL/V5/V6] Compared to ECG 01/22/2023 19:05:00 Ectopic atrial rhythm now presentAtrial abnormality now present Myocardial infarct finding now present.Sinus rhythm no longer present ST (T wave) deviation still present Electronically Signed On 01-24-2023 0:24:09 CDT by David Horne M.D. [id number]
[2023-01-22 21:05] LABS: Reflex Lactate Order REFLEX LACTIC ORDERD
[2023-01-22 21:07] LABS: Troponin 5 2HR 26.75 ng/L (0-10)
--- NOTE | 2023-01-22 21:10 | P.HP_ITS ---
Providers/Chief Complaint Admitting Physician: Saima Ozuna MD Primary Care Provider: Catalino Sanders MD Chief Complaint: SOB History of Present Illness Denia Gerardo is a 77 year old female past medical history of CAD, cardiogenic shock, COPD, dyslipidemia, hypertension, emphysema, NSTEMI, peripheral arterial disease, nephrolithiasis status post ureteral stent placement, UTI, systolic congestive heart failure presented to the hospital today for increasing worsening shortness of breath. She states that she was recently told by one of her doctors to cut down on her Lasix and hold it for a little while. She states she has not taken it in the last 4 days and noticed worsening shortness of breath as the days went by. She also had lower extremity edema. She called back her doctor over the phone and was asked to restart Lasix. She states she took it 2 days in a row however has not gotten better. The only thing she has noticed is that the edema has improved however the shortness of breath is worsened. She endorses orthopnea. She states she is only slept for a few hours due to shortness of breath. She states she called EMS and was brought to the hospital. In route she was given a breathing treatment. She has not eaten out recently and has not eaten at a restaurant. She does not use added salt in her diet. She has also been coughing with clear sputum. At the time of my evaluation in the ER patient had already received 60 of Lasix and is starting to feel little bit better. She is currently on BiPAP. She states she would like to be a full code and she has a DPOA who is her son. She states to call her son in case of any medical decision making if she is unable to make her own decisions for herself. Patient denies a fever, nausea, vomiting, chest pain, bilateral pain, diarrhea, constipation. ED course: 130/55, 100% on 2 L nasal cannula, respiratory rate 13, pulse 86, temperature 97.6. BNP 21,000, creatinine 0.9, baseline troponin 26, lactic acid 2, WBC normal, ABG obtained 7.44 PO2 67 on 2 L. She appears slightly tachypneic. Was given 60 of Lasix IV x1 and placed on BiPAP subsequently. Medications/Allergies Home Medications Medication Instructions Recorded Confirmed Last Taken Type acetaminophen 325 mg tablet 325 mg PO QID PRN Pain 05/04/20 01/22/23 02/26/22 History (Tylenol) methenamine hippurate 1 gram tablet 1 g PO BID #60 tabs 03/01/22 01/22/23 08/19/22 Rx ascorbic acid (vitamin C) 1,000 mg 1,000 mg PO BID 04/26/22 01/22/23 11/20/22 H istory tablet (Vitamin C) aspirin 81 mg tablet,delayed 81 mg PO DAILY #30 tabs 04/27/22 01/22/23 11/18/22 Rx release atorvastatin 40 mg tablet 40 mg PO BEDTIME #60 tabs 04/27/22 01/22/23 11/20/22 Rx fluticasone propionate 50 1 spray intranasal DAILY 07/26/22 01/22/23 08/19/22 History mcg/actuation nasal spray,suspension (Flonase Allergy Relief) clopidogrel 75 mg tablet 75 mg PO DAILY 08/19/22 01/22/23 10/25/22 History metoprolol tartrate 50 mg tablet 50 mg PO BID 08/19/22 01/22/23 11/20/22 History lisinopril 5 mg tablet 5 mg PO DAILY 10/20/22 01/22/23 11/20/22 History nitroglycerin 0.4 mg sublingual 0.4 mg sublingual Q5M PRN chest 10/20/22 01/22/23 Unknown Rx tablet pain #25 tabs furosemide 40 mg tablet (Lasix) 40 mg PO DAILY #30 tabs 11/25/22 01/22/23 Unknown Rx potassium chloride 20 mEq oral 20 meq PO DAILY #30 ea 11/25/22 01/22/23 Unknown Rx packet (Klor-Con) ipratropium bromide 21 mcg (0.03 spray intranasal TID PRN Dry Nasal 01/22/23 Unknown History %) nasal spray Passages Allergies Allergy/AdvReac Type Severity Reaction Status Date / Time meperidine [From Demerol] Allergy Unknown Unknown Verified 01/22/23 19:03 morphine Allergy Unknown Unknown Verified 01/22/23 19:03 PFSH Acute PFSH: Medical History Acute systolic CHF (congestive heart failure) CAD (coronary artery disease) Cardiogenic shock Cardiomyopathy COPD (chronic obstructive pulmonary disease) Cystitis Dyslipidemia Elevated troponin Elevated troponin I level Emphysema lung Essential hypertension Extrinsic ureteral obstruction Heart failure, systolic, with acute decompensation Hypoxia Lactic acidosis NSTEMI (non-ST elevated myocardial infarction) Peripheral arterial disease Respiratory failure with hypoxia and hypercapnia Retained ureteral stent Syncope and collapse Systolic CHF Tobacco abuse Urinary incontinence UTI (urinary tract infection) Surgical History H/O arthroscopic knee surgery bilateral H/O oral surgery H/O shoulder surgery H/O total hip arthroplasty right H/O: H/O: hysterectomy History of colon surgery Family History Mother , at age 79 Hypertension Peripheral artery disease Diabetes Father , at age 47 Cancer pancreatic and lung Social History Smoking and tobacco status: current some day smoker (quitting) cigarettes Packs smoked per day: 0.5 Years cigarettes smoked: 60 [ Other cigarette details: Hx of 1 PPD x 50 Years] Second hand smoke exposure: Yes Smoking risk assessment/counseling performed?: Yes Alcohol intake: never Substance/Drug Use: never Lives independently: Yes Housing: Apartment Marital status: Legally Current occupational status: retired and disabled Do you think of yourself as: Straight/Heterosexual Current gender identity: Female Vitals/I&O/Wt Last Vital Signs Temp 97.6 F 01/22/23 18:53 Pulse 86 01/22/23 20:45 Resp 13 01/22/23 20:45 BP 130/55 01/22/23 20:45 Pulse Ox 100 01/22/23 20:45 O2 Del Method BiPAP 01/22/23 20:45 O2 Flow Rate 2 01/22/23 19:34 FiO2 30 01/22/23 20:45 Weight last 48 hrs Weight 49.895 kg Physical Exam Narrative: General: Alert oriented x3, patient seen laying in bed appearing comfortable at this time. He is on BiPAP. Able to have full conversation without getting short of breath. For the time of interview BiPAP was removed and she was transitioned to nasal cannula. She did not have any conversational dyspnea. No acute respiratory distress. Saturating 95% on nasal cannula 2 L at this time. HEENT: Normocephalic, atraumatic, EOMI, Cardio: Regular rate rhythm, normal S1-S2 Respiratory: Trace fine crackles bilaterally at bases present, no wheezes or rhonchi GI: Abdomen soft, nontender, bowel sounds + Extremities: No edema bilateral lower extremities at this time. Data 01/22/23 18:40 01/22/23 18:40 Micro: Microbiology 01/22/23 19:35 Blood Culture - Preliminary Blood SPECIMEN COLLECTED 01/22/23 19:30 Blood Culture - Preliminary Blood SPECIMEN COLLECTED A&P Assessment and plan (1) Pulmonary edema: (2) Acute respiratory failure with hypoxia: (3) Systolic CHF: (4) Chest pain: Qualifiers: Chest pain type: unspecified Qualified Code(s): R07.9 - Chest pain, unspecified (5) Dyslipidemia: (6) Peripheral arterial disease: Plan #Acute on chronic congestive systolic heart failure #Was holding lasix at home #History of CAD, cardiogenic shock #History of dyslipidemia, hypertension, NSTEMI, PAD, ureteral obstruction status post stent placement and removal. #History of UTI #History of COPD/emphysema ? Patient reportedly has not been taking her Lasix lately. We will place her on Lasix 40 IV daily. She also received 60 IV in the ER. Chest x-ray does show pulmonary edema and some cardiomegaly. I reviewed the image myself. Patient is not in cardiogenic shock at this time. Lactic acid is 2. Creatinine 0.9. ? Based on BiPAP for heart failure ? Place Velasquez catheter for accurate output ? Patient will need to be sent home on Lasix. BNP 21,000. Previous admissions that has been higher. Patient is clinically in CHF ? She denies any fever and does not have any other clinical signs of pneumonia. ? Continue aspirin, atorvastatin, Plavix, DuoNeb every 6 hours as needed, lisinopril, Lopressor ? Check CBC BMP in AM. Check magnesium. Replete electrolytes as needed ? Most recent echo is from June 2022. Shows EF 45% with diastolic failure. I will hold off on repeating an echo at this time. Consider repeating if clinically warranted. - EKG without acute ischemic changes. - Initial trop 25, 2 hour and 6 hour trop pending Full Code DVT PPX: Heparin subc BID DPOA: Son. Attestations Medical Necessity Statement*: In hospital for management of decompensated heart failure Coding Level of Care Code G0425 (30 min) TH Encounter Time (min): 45 Patient seen via Telehealth in the acute care setting (hospital or ED location) by agreement and consent of patient or patient customer account representative. Telehealth technology used during the visit includes video and audio. This patient encounter is appropriate and reasonable under the circumstances given the patient?s particular presentation at this time. The patient has been advised of the potential risks and limitations of this mode of treatment (including but not limited to the absence of in-person examination at this time) and has agreed to be treated by an off-site physician for this visit. If deemed clinically necessary from this telehealth visit, or if condition or consent for telehealth visit changes, an in-person visit will be arranged. For this encounter, total time for the origination of telehealth care on this date is as shown. Diagnoses Pulmonary edema J81.1 Acute respiratory failure with hypoxia J96.01 Systolic CHF I50.20 Chest pain R07.9 Chest pain type: unspecified Dyslipidemia E78.5 Peripheral arterial disease I73.9
[2023-01-22 21:17] LABS: Troponin 5 2HR Delta 0.75 ABS# (0-10)
[2023-01-22 21:47] LABS: Procalcitonin 0.06 ng/mL (0-0.5)
[2023-01-22] MEDS: heparin 5,000 unit/mL INJ 1 mL 5000 UNIT SUBCUT (21:47)
[2023-01-22 22:05] LABS: Lactic Acid level (Lactate) 1.3 mmol/L (0.5-2.2)
[2023-01-23] VITALS (12 sets, daily range): BP systolic 114–134; BP diastolic 47–89; PULSE 78–92; RESP 16–30; TEMP 36.5–36.8; O2SAT 91–100
[2023-01-23 01:21] LABS: Basophils % 0.5 %; Eosinophils # 0.1 10^3/uL (0.0-0.8); Eosinophils % 0.9 %; Hemoglobin 10.7 g/dL (11.5-15.3); Lymphocytes # 1.2 10^3/uL (0.8-4.8); Lymphocytes % 20.2 %; Mean Corpuscular HGB Conc 31.5 g/dL (30.0-36.0); Mean Corpuscular Hemoglobin 30.1 pg (28.0-34.0); Mean Corpuscular Volume 95.8 fl (81-99); Mean Platelet Volume 10.9 fL (7.4-10.4); Monocytes # 0.5 10^3/uL (0.2-0.9); Monocytes % 9.2 %; Neutrophils # 4.03 10^3/uL (1.8-7.7); Nucleated Red Blood Cells % 0 %; Platelet Count 176 10^3/cmm (130-400); Red Blood Count 3.55 10^6/uL (4.1-5.3); Red Cell Distribution Width 14.8 % (12.1-15.1); White Blood Count 5.8 10^3/uL (4.0-10.0)
[2023-01-23 01:28] LABS: Troponin 5 6HR 37.94 ng/L (0-10)
[2023-01-23 01:30] LABS: Anion Gap 17.6 (5-19); Blood Urea Nitrogen 18 mg/dL (8-23); Calcium 9.3 mg/dL (8.5-10.5); Carbon Dioxide 22 mmol/L (22-29); Chloride 108 mmol/L (98-107); Glucose 120 mg/dL (65-115); Magnesium 1.9 mg/dL (1.7-2.3); Osmolality Calculated 301 mOsm/kg (285-295); Potassium 3.6 mmol/L (3.5-5.1); Sodium 144 mmol/L (136-145)
[2023-01-23 01:38] LABS: Troponin 5 6HR Delta 11.94 ng/L (0-12)
--- NOTE | 2023-01-23 02:07 | ECG_ITS ---
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 Measurements Intervals [place] Rate: 84 P: 33 [place]: 160 QRS: 36 QRSD: 102 T: 32 QT: 398 QTc: 473 Interpretive Statements SINUS RHYTHM LEFT VENTRICULAR HYPERTROPHY AND ST-T CHANGE [VOLTAGE CRITERIA PLUS ST/T ABNORMALITY] Compared to ECG 01/23/2023 00:19:43 Ectopic atrial rhythm no longer present Myocardial infarct finding no longer present ST (T wave) deviation still present Electronically Signed On 01-24-2023 0:24:18 CDT by David Horne M.D. [email or web address]
--- NOTE | 2023-01-23 08:18 | USCV_ITS ---
Akin Denia Age: 77 Gender: F : 1945 Exam Date: 01/23/2023 10:48 Ordering Phys: Rafi Wood MD Technologist: Grover Pierre Exam Location: [facility] [place] Indication: chest pain BP: 129 / 103 HR: 66 Rhythm: Sinus Technical Quality: Adequate MEASUREMENTS (Male / Female) Normal Values 2D ECHO LV Diastolic Diameter PLAX 4.5 cm 4.2 - 5.9 / 3.9 - 5.3 cm LV Systolic Diameter PLAX 3.6 cm IVS Diastolic Thickness 1.4 cm 0.6 - 1.0 / 0.6 - 0.9 cm IVS Systolic Thickness 1.3 cm LVPW Diastolic Thickness 1.4 cm 0.6 - 1.0 / 0.6 - 0.9 cm LVPW Systolic Thickness 1.4 cm LVOT Diameter 2.0 cm LV Ejection Fraction 2D Teich 41.3 % LA Diameter 3.3 cm Aorta at Sinotubular Diameter 2.1 cm IVC Diameter 0.9 cm M-MODE Aortic Annulus Diameter 3.4 cm LA Ao Ratio MM 1.1 MV E Point Septal Separation 1.5 cm DOPPLER MV Area PHT 2.8 cm squared Mitral E to A Ratio 0.7 MV E' Velocity 35.0 cm/s Mitral E to MV E' Ratio 19.7 Mitral E to LV E' Lateral Ratio 23.1 Mitral E to LV E' Septal Ratio 17.2 TR Peak Velocity 195.3 cm/s TR Peak Gradient 15.3 mmHg TV Peak E Velocity 95.0 cm/s Right Atrial Pressure 3.0 mmHg Pulmonary Artery Systolic Pressu 18.3 mmHg RV Acceleration Time 0.2 s FINDINGS Left Ventricle Left ventricle is normal in size. LV systolic function is moderately reduced with EF of 35-40%. Moderate global hypokinesis seen. Grade 1 diastolic dysfunction Right Ventricle Normal in size and function. Right Atrium Not well visualized Left Atrium Not well visualized Mitral Valve Mild mitral annular calcification. Mild to moderate mitral regurgitation. Aortic Valve Aortic valve is not well visualized. Doppler exam was not performed. Tricuspid Valve Not well visualized Pulmonic Valve Not well visualized. Trace pulmonic regurgitation. Pericardium Normal Aorta Normal in size IVC Appears to be normal CONCLUSIONS LV systolic function is moderately reduced with EF of 35 to 40% Grade 1 diastolic dysfunction Mild to moderate mitral regurgitation. Trace pulmonic regurgitation. Compared to prior echocardiogram from 08/2022, no significant changes are seen Spencer Maciel MD (Electronically Signed) Final Date: 23 Jan 2023 17:57 S
--- NOTE | 2023-01-23 08:29 | PC.PHAR ---
pt states she takes care of her own medications-pt states her lasix 40mg daily,kcl 20meq daily and lisinopril 5mg daily has been on hold for about 2 weeks-
[2023-01-23] MEDS: metoprolol tartrate 50 mg Tablet PO ×2 (08:36→17:12)
[2023-01-23] MEDS: FUROsemide 10 mg/mL SDV 4mL 40 MG IVP ×2 (08:36→21:30)
[2023-01-23] MEDS: potassium chloride ER 20 mEq Tablet 40 MEQ PO (08:36)
[2023-01-23] MEDS: metOLazone 5 MG Tablet PO (08:36)
[2023-01-23] MEDS: clopidogrel 75 mg Tablet PO (08:36)
[2023-01-23] MEDS: aspirin 81 mg EC Tablet PO (08:36)
[2023-01-23] MEDS: heparin 5,000 unit/mL INJ 1 mL 5000 UNIT SUBCUT ×2 (08:37→21:32)
--- NOTE | 2023-01-23 13:50 | PM.PN ---
Subjective Subjective: Patient was seen this morning, she denies any chest pain, but continues to complain of shortness of breath, denies any fevers, no chills, Vitals/I&O/Wt Last Vital Signs Temp 98.0 F 01/23/23 12:00 Pulse 89 01/23/23 12:00 Resp 22 H 01/23/23 12:00 BP 114/47 01/23/23 12:00 Pulse Ox 97 01/23/23 12:00 O2 Del Method Room Air 01/23/23 12:00 O2 Flow Rate 2 01/23/23 08:43 FiO2 30 01/23/23 00:00 01/22/23 01/23/23 01/23/23 22:59 06:59 14:59 Intake Total 540 / 540 Output Total 1700 / 1700 Balance -1700 / -1700 540 / 540 Weight last 48 hrs Weight 54.068 kg Weight 49.895 kg Physical Exam Const: COMMON NORMALS: no acute distress and patient oriented x3 Resp: COMMON NORMALS: normal respiratory effort, No retractions and No use of accessory muscles AUSCULTATION: crackles Cardio: COMMON NORMALS: regular rate, regular rhythm, S1 normal heart sound present and S2 normal heart sound present RATE: regular rate RHYTHM: regular rhythm HEART SOUNDS: S1 normal heart sound present and S2 normal heart sound present GI: COMMON NORMALS: Normal to inspection, nondistended, normoactive bowel sounds present and non-tender Extremity: COMMON NORMALS: no pedal edema Neuro: COMMON NORMALS: patient oriented x3 Psych: COMMON NORMALS: mental status grossly normal Urinary Catheter Management: Velasquez: Cath Placed During This Visit: yes Reason for Continuing Indwelling Catheter: Accurate Measurement of Urinary Output in Critically Ill Patients Urinary Catheter Date of Insertion: 01/22/23 Urinary Catheter Time of Insertion: 21:53 Data 01/23/23 00:57 01/23/23 00:57 Micro: Microbiology 01/22/23 19:35 Blood Culture - Preliminary Blood SPECIMEN COLLECTED 01/22/23 19:30 Blood Culture - Preliminary Blood SPECIMEN COLLECTED A&P Assessment and plan (1) Pulmonary edema: (2) Acute respiratory failure with hypoxia: (3) Systolic CHF: (4) Chest pain: Qualifiers: Chest pain type: unspecified Qualified Code(s): R07.9 - Chest pain, unspecified (5) Dyslipidemia: (6) Peripheral arterial disease: (7) NSTEMI (non-ST elevated myocardial infarction): Plan #Acute on chronic congestive systolic heart failure and diastolic #Was holding lasix at home #History of CAD, cardiogenic shock #History of dyslipidemia, hypertension, NSTEMI, PAD, ureteral obstruction status post stent placement and removal. #History of UTI #History of COPD/emphysema ? Patient reportedly has not been taking her Lasix lately. We will place her on Lasix 40 IV daily. She also received 60 IV in the ER. Chest x-ray does show pulmonary edema and some cardiomegaly. I reviewed the image myself. Patient is not in cardiogenic shock at this time. Lactic acid is 2. Creatinine 0.9. ? Based on BiPAP for heart failure ? Place Velasquez catheter for accurate output ? Patient will need to be sent home on Lasix. BNP 21,000. Previous admissions that has been higher. Patient is clinically in CHF ? She denies any fever and does not have any other clinical signs of pneumonia. ? Continue aspirin, atorvastatin, Plavix, DuoNeb every 6 hours as needed, lisinopril, Lopressor ? Check CBC BMP in AM. Check magnesium. Replete electrolytes as needed ? Most recent echo is from June 2022. Shows EF 45% with diastolic failure. Repeat cardiac echo -Lasix 40 IV twice daily, metolazone 1 dose - EKG without acute ischemic changes. -NSTEMI, cellulitis, surgical scar telemetry monitoring Full Code DVT PPX: Heparin subc BID DPOA: Son. Hodge today increase Lasix 40 IV every 12 hours, low-dose metolazone, 1 dose potassium, out of bed, BiPAP as needed Attestations Medical Necessity Statement*: Patient requires hospitalization for CHF exacerbation, systolic and diastolic Diagnoses Pulmonary edema J81.1 Acute respiratory failure with hypoxia J96.01 Systolic CHF I50.20 Chest pain R07.9 Chest pain type: unspecified Dyslipidemia E78.5 Peripheral arterial disease I73.9 NSTEMI (non-ST elevated myocardial infarction) I21.4
[2023-01-23] MEDS: atorvastatin 40 mg Tablet PO (21:29)
[2023-01-24] VITALS (44 sets, daily range): BP systolic 90–121; BP diastolic 52–80; PULSE 74–121; RESP 14–30; TEMP 36.4–36.7; O2SAT 93–97
[2023-01-24 04:14] LABS: Basophils # 0.1 10^3/uL (0.0-0.1); Basophils % 1.2 %; Eosinophils # 0.2 10^3/uL (0.0-0.8); Eosinophils % 3.5 %; Hematocrit 40.7 % (37.0-47.0); Hemoglobin 13.2 g/dL (11.5-15.3); Lymphocytes # 1.7 10^3/uL (0.8-4.8); Lymphocytes % 35.4 %; Mean Corpuscular HGB Conc 32.4 g/dL (30.0-36.0); Mean Corpuscular Hemoglobin 30.7 pg (28.0-34.0); Mean Corpuscular Volume 94.7 fl (81-99); Monocytes # 0.4 10^3/uL (0.2-0.9); Monocytes % 8.8 %; Neutrophils # 2.49 10^3/uL (1.8-7.7); Neutrophils % 50.9 %; Nucleated Red Blood Cells % 0 %; Platelet Count 221 10^3/cmm (130-400); White Blood Count 4.9 10^3/uL (4.0-10.0)
[2023-01-24 04:42] LABS: Anion Gap 21.9 (5-19); Blood Urea Nitrogen 19 mg/dL (8-23); Calcium 10.5 mg/dL (8.5-10.5); Carbon Dioxide 23 mmol/L (22-29); Chloride 98 mmol/L (98-107); Glucose 104 mg/dL (65-115); Magnesium 2.1 mg/dL (1.7-2.3); Osmolality Calculated 291 mOsm/kg (285-295); Potassium 3.9 mmol/L (3.5-5.1); Sodium 139 mmol/L (136-145)
[2023-01-24] MEDS: ondansetron 2 mg/ML SDV 2 mL 4 MG IVP (06:36)
[2023-01-24] MEDS: potassium chloride ER 20 mEq Tablet 40 MEQ PO (08:32)
[2023-01-24] MEDS: aspirin 81 mg EC Tablet PO (08:33)
[2023-01-24] MEDS: clopidogrel 75 mg Tablet PO (08:33)
[2023-01-24] MEDS: FUROsemide 10 mg/mL SDV 4mL 40 MG IVP (08:34)
[2023-01-24] MEDS: heparin 5,000 unit/mL INJ 1 mL 5000 UNIT SUBCUT ×2 (08:34→20:36)
--- NOTE | 2023-01-24 09:49 | PC.NURSE ---
Patient's SBP running <100. Notified Dr. Wood and he wants to hold the 0900 metoprolol dose.
--- NOTE | 2023-01-24 14:53 | PM.PN ---
Subjective Subjective: Patient was seen this morning she feels less short of breath, she is able to ambulate, denies any chest pain, no palpitations, no fevers, no chills Vitals/I&O/Wt Last Vital Signs Temp 97.7 F 01/24/23 03:26 Pulse 97 01/24/23 13:44 Resp 20 H 01/24/23 13:44 BP 101/63 01/24/23 08:45 Pulse Ox 95 01/24/23 13:44 O2 Del Method Room Air 01/24/23 13:44 O2 Flow Rate 2 01/23/23 08:43 FiO2 30 01/23/23 00:00 01/23/23 01/24/23 01/24/23 22:59 06:59 14:59 Intake Total 360 / 900 50 / 50 Output Total 3850 / 3850 700 / 4550 Balance -3490 / -2950 -700 / -3650 50 / 50 Weight last 48 hrs Weight 49.804 kg Weight 54.068 kg Weight 49.895 kg Physical Exam Const: COMMON NORMALS: no acute distress and patient oriented x3 Resp: COMMON NORMALS: normal respiratory effort, No retractions, No use of accessory muscles and clear to auscultation bilaterally AUSCULTATION: clear to auscultation bilaterally Cardio: COMMON NORMALS: regular rate, regular rhythm, S1 normal heart sound present and S2 normal heart sound present RATE: regular rate RHYTHM: regular rhythm HEART SOUNDS: S1 normal heart sound present and S2 normal heart sound present GI: COMMON NORMALS: Normal to inspection, nondistended, normoactive bowel sounds present and non-tender Extremity: COMMON NORMALS: no pedal edema Neuro: COMMON NORMALS: patient oriented x3 Psych: COMMON NORMALS: mental status grossly normal Urinary Catheter Management: Velasquez: Cath Placed During This Visit: yes Reason for Continuing Indwelling Catheter: Accurate Measurement of Urinary Output in Critically Ill Patients Urinary Catheter Date of Insertion: 01/22/23 Urinary Catheter Time of Insertion: 21:53 Data 01/24/23 03:08 01/24/23 03:08 Micro: Microbiology 01/22/23 19:35 Blood Culture - Preliminary Blood NEGATIVE TO DATE 01/22/23 19:30 Blood Culture - Preliminary Blood NEGATIVE TO DATE A&P Assessment and plan (1) Pulmonary edema: (2) Acute respiratory failure with hypoxia: (3) Systolic CHF: (4) Chest pain: Qualifiers: Chest pain type: unspecified Qualified Code(s): R07.9 - Chest pain, unspecified (5) Dyslipidemia: (6) Peripheral arterial disease: (7) NSTEMI (non-ST elevated myocardial infarction): Plan #Acute on chronic congestive systolic heart failure and diastolic #Was holding lasix at home #History of CAD, cardiogenic shock #History of dyslipidemia, hypertension, NSTEMI, PAD, ureteral obstruction status post stent placement and removal. #History of UTI #History of COPD/emphysema ? Creatinine 1.2, -5 L -1 dose Lasix this morning, hold evening dose ? Based on BiPAP for heart failure ? Place Velasquez catheter for accurate output ? Patient will need to be sent home on Lasix. BNP 21,000. Previous admissions that has been higher. Patient is clinically in CHF ? She denies any fever and does not have any other clinical signs of pneumonia. ? Continue aspirin, atorvastatin, Plavix, DuoNeb every 6 hours as needed, lisinopril, Lopressor ? Check CBC BMP in AM. Check magnesium. Replete electrolytes as needed ? Most recent echo is from June 2022 LV systolic function is moderately reduced with EF of 35 to 40% ?Grade 1 diastolic dysfunction ?Mild to moderate mitral regurgitation. ?Trace pulmonic regurgitation. ?Compared to prior echocardiogram from 08/2022, no significant ?changes are seen - EKG without acute ischemic changes. -NSTEMI, continue telemetry monitoring Full Code DVT PPX: Heparin subc BID DPOA: Son. Plan for today 1 dose Lasix in the in the morning, hold evening dose, monitor urine output Attestations Medical Necessity Statement*: Patient requires hospitalization for CHF exacerbation Diagnoses Pulmonary edema J81.1 Acute respiratory failure with hypoxia J96.01 Systolic CHF I50.20 Chest pain R07.9 Chest pain type: unspecified Dyslipidemia E78.5 Peripheral arterial disease I73.9 NSTEMI (non-ST elevated myocardial infarction) I21.4
[2023-01-24] MEDS: metoprolol tartrate 50 mg Tablet PO (17:30)
[2023-01-24] MEDS: atorvastatin 40 mg Tablet PO (20:36)
[2023-01-25] VITALS (27 sets, daily range): BP systolic 97–140; BP diastolic 46–67; PULSE 80–120; RESP 14–28; TEMP 36.6–37.2; O2SAT 90–99
[2023-01-25 06:04] LABS: Basophils % 0.6 %; Eosinophils # 0.1 10^3/uL (0.0-0.8); Eosinophils % 0.7 %; Hematocrit 39.4 % (37.0-47.0); Hemoglobin 12.2 g/dL (11.5-15.3); Lymphocytes # 1.3 10^3/uL (0.8-4.8); Lymphocytes % 18.4 %; Mean Corpuscular Hemoglobin 30.1 pg (28.0-34.0); Mean Corpuscular Volume 97.3 fl (81-99); Mean Platelet Volume 10.5 fL (7.4-10.4); Monocytes # 0.6 10^3/uL (0.2-0.9); Monocytes % 9.3 %; Neutrophils # 4.85 10^3/uL (1.8-7.7); Neutrophils % 70.7 %; Nucleated Red Blood Cells % 0 %; Platelet Count 229 10^3/cmm (130-400); Red Blood Count 4.05 10^6/uL (4.1-5.3); Red Cell Distribution Width 14.9 % (12.1-15.1); White Blood Count 6.9 10^3/uL (4.0-10.0)
[2023-01-25 06:34] LABS: Anion Gap 24.1 (5-19); Blood Urea Nitrogen 28 mg/dL (8-23); Calcium 9.8 mg/dL (8.5-10.5); Carbon Dioxide 18 mmol/L (22-29); Chloride 98 mmol/L (98-107); Glucose 102 mg/dL (65-115); Magnesium 2.1 mg/dL (1.7-2.3); Osmolality Calculated 286 mOsm/kg (285-295); Potassium 5.1 mmol/L (3.5-5.1); Sodium 135 mmol/L (136-145)
--- NOTE | 2023-01-25 09:33 | PC.SOCIAL ---
Pg 2 IMM Explained to pt Pg 2 IMM. No questions voiced. Provided pt a copy. Initialed, dated, & timed a copy & placed in chart.
[2023-01-25] MEDS: metoprolol tartrate 50 mg Tablet PO ×2 (10:10→18:26)
[2023-01-25] MEDS: aspirin 81 mg EC Tablet PO (10:11)
[2023-01-25] MEDS: clopidogrel 75 mg Tablet PO (10:11)
[2023-01-25] MEDS: heparin 5,000 unit/mL INJ 1 mL 5000 UNIT SUBCUT ×2 (10:12→20:17)
[2023-01-25] MEDS: sodium chloride 0.9% 1,000 ML 50 ML IV (13:23)
[2023-01-25 16:50] LABS: Anion Gap 21.7 (5-19); Blood Urea Nitrogen 38 mg/dL (8-23); Calcium 9.4 mg/dL (8.5-10.5); Carbon Dioxide 22 mmol/L (22-29); Chloride 96 mmol/L (98-107); Glucose 83 mg/dL (65-115); Osmolality Calculated 288 mOsm/kg (285-295); Potassium 4.7 mmol/L (3.5-5.1); Sodium 135 mmol/L (136-145)
--- NOTE | 2023-01-25 17:46 | PM.PN ---
Subjective Subjective: Patient was seen this morning, she tells me that she had robust output from her Velasquez catheter, advised her that her creatinine went up to 2.1 and would hold diuretics for today started on gentle IV hydration if she has any shortness of breath please tell nursing staff so think we can stop her fluids, will monitor your urine output, she denies any chest pain, no palpitations, she is on room air, will repeat BMP in the afternoon, currently it is 2.0 improving, has urine output we will monitor for the next 24 hours likely discharge tomorrow Vitals/I&O/Wt Last Vital Signs Temp 97.8 F 01/25/23 12:00 Pulse 90 01/25/23 16:00 Resp 20 H 01/25/23 16:00 BP 103/50 01/25/23 16:00 Pulse Ox 93 01/25/23 16:00 O2 Del Method Room Air 01/25/23 16:00 O2 Flow Rate 2 01/23/23 08:43 FiO2 30 01/23/23 00:00 01/25/23 01/25/23 01/25/23 06:59 14:59 22:59 Intake Total 840 / 840 Output Total 150 / 400 Balance -150 / -110 840 / 840 Weight last 48 hrs Weight 49.158 kg Weight 49.804 kg Physical Exam Const: COMMON NORMALS: no acute distress and patient oriented x3 Resp: COMMON NORMALS: normal respiratory effort, No retractions, No use of accessory muscles and clear to auscultation bilaterally AUSCULTATION: clear to auscultation bilaterally Cardio: COMMON NORMALS: regular rate, regular rhythm, S1 normal heart sound present and S2 normal heart sound present RATE: regular rate RHYTHM: regular rhythm HEART SOUNDS: S1 normal heart sound present and S2 normal heart sound present GI: COMMON NORMALS: Normal to inspection, nondistended, normoactive bowel sounds present and non-tender Extremity: COMMON NORMALS: no pedal edema Neuro: COMMON NORMALS: patient oriented x3 Psych: COMMON NORMALS: mental status grossly normal Urinary Catheter Management: Velasquez: Cath Placed During This Visit: yes Reason for Continuing Indwelling Catheter: Accurate Measurement of Urinary Output in Critically Ill Patients Urinary Catheter Date of Insertion: 01/22/23 Urinary Catheter Time of Insertion: 21:53 Data 01/25/23 04:55 01/25/23 16:00 A&P Assessment and plan (1) Pulmonary edema: (2) Acute respiratory failure with hypoxia: (3) Systolic CHF: (4) Chest pain: Qualifiers: Chest pain type: unspecified Qualified Code(s): R07.9 - Chest pain, unspecified (5) Dyslipidemia: (6) Peripheral arterial disease: (7) NSTEMI (non-ST elevated myocardial infarction): (8) Acute kidney injury: Plan #Acute on chronic congestive systolic heart failure and diastolic #Was holding lasix at home #History of CAD, cardiogenic shock #History of dyslipidemia, hypertension, NSTEMI, PAD, ureteral obstruction status post stent placement and removal. #History of UTI #History of COPD/emphysema ? Creatinine 2.0, -5 L, on gentle IV hydration at 50 cc an hour - hold Lasix ? Based on BiPAP for heart failure ? Place Velasquez catheter for accurate output ? Patient will need to be sent home on Lasix. BNP 21,000. Previous admissions that has been higher. Patient is clinically in CHF ? She denies any fever and does not have any other clinical signs of pneumonia. ? Continue aspirin, atorvastatin, Plavix, DuoNeb every 6 hours as needed, lisinopril, Lopressor ? Check CBC BMP in AM. Check magnesium. Replete electrolytes as needed ? Most recent echo is from June 2022 LV systolic function is moderately reduced with EF of 35 to 40% ?Grade 1 diastolic dysfunction ?Mild to moderate mitral regurgitation. ?Trace pulmonic regurgitation. ?Compared to prior echocardiogram from 08/2022, no significant ?changes are seen - EKG without acute ischemic changes. -NSTEMI, continue telemetry monitoring Full Code DVT PPX: Heparin subc BID DPOA: Son. Plan for today hold Lasix, gentle hydration monitor shortness of breath monitor creatinine Attestations Medical Necessity Statement*: Patient requires hospitalization for CHF, fluid overload, now developing ERIC requiring IV fluids monitoring creatinine Diagnoses Pulmonary edema J81.1 Acute respiratory failure with hypoxia J96.01 Systolic CHF I50.20 Chest pain R07.9 Chest pain type: unspecified Dyslipidemia E78.5 Peripheral arterial disease I73.9 NSTEMI (non-ST elevated myocardial infarction) I21.4 Acute kidney injury N17.9
[2023-01-25] MEDS: atorvastatin 40 mg Tablet PO (20:17)
[2023-01-26] VITALS (19 sets, daily range): BP systolic 105–132; BP diastolic 59–77; PULSE 71–101; RESP 15–18; TEMP 36.6–37.1; O2SAT 92–100
[2023-01-26 07:32] LABS: Basophils % 0.9 %; Eosinophils % 0.9 %; Hematocrit 39.1 % (37.0-47.0); Hemoglobin 11.9 g/dL (11.5-15.3); Lymphocytes # 0.7 10^3/uL (0.8-4.8); Lymphocytes % 20.7 %; Mean Corpuscular HGB Conc 30.4 g/dL (30.0-36.0); Mean Corpuscular Hemoglobin 29.8 pg (28.0-34.0); Mean Platelet Volume 10.4 fL (7.4-10.4); Monocytes # 0.4 10^3/uL (0.2-0.9); Monocytes % 11.9 %; Neutrophils % 65.3 %; Nucleated Red Blood Cells % 0 %; Platelet Count 174 10^3/cmm (130-400); Red Blood Count 3.99 10^6/uL (4.1-5.3); Red Cell Distribution Width 14.8 % (12.1-15.1); White Blood Count 3.5 10^3/uL (4.0-10.0)
[2023-01-26 07:57] LABS: Magnesium 2.1 mg/dL (1.7-2.3)
[2023-01-26 08:01] LABS: Anion Gap 20.1 (5-19); Blood Urea Nitrogen 38 mg/dL (8-23); Calcium 9.1 mg/dL (8.5-10.5); Carbon Dioxide 19 mmol/L (22-29); Chloride 103 mmol/L (98-107); Glucose 93 mg/dL (65-115); NT Pro B Type Natriuretic Pept 6059 pg/mL (0-450); Osmolality Calculated 295 mOsm/kg (285-295); Potassium 4.1 mmol/L (3.5-5.1); Sodium 138 mmol/L (136-145)
[2023-01-26] MEDS: metoprolol tartrate 50 mg Tablet PO ×2 (09:01→17:55)
[2023-01-26] MEDS: clopidogrel 75 mg Tablet PO (09:01)
[2023-01-26] MEDS: aspirin 81 mg EC Tablet PO (09:01)
[2023-01-26] MEDS: heparin 5,000 unit/mL INJ 1 mL 5000 UNIT SUBCUT ×2 (09:02→20:22)
--- NOTE | 2023-01-26 11:35 | P.DS_ITS ---
Discharge Providers Date of Admission: 01/22/23 22:07 Date of Discharge: January 26, 2023 Attending Provider at Admission: Saima Ozuna MD Attending Provider at Discharge: Rafi Wood MD Primary Care Provider: Catalino Sanders MD Diagnoses at Discharge Discharge Diagnosis (1) Pulmonary edema: Status: Acute (2) Acute respiratory failure with hypoxia: Status: Acute (3) Systolic CHF: Status: Acute (4) Chest pain: Status: Acute Qualifiers: Chest pain type: unspecified Qualified Code(s): R07.9 - Chest pain, unspecified (5) Dyslipidemia: Status: Acute (6) Peripheral arterial disease: Status: Acute (7) NSTEMI (non-ST elevated myocardial infarction): Status: Acute (8) Acute kidney injury: Status: Acute Reason for Visit Reason for Visit: SOB Hospital Course Hospital Course Denia Gerardo is a 77 year old female past medical history of CAD, cardiogenic shock, COPD, dyslipidemia, hypertension, emphysema, NSTEMI, peripheral arterial disease, nephrolithiasis status post ureteral stent placement, UTI, systolic congestive heart failure presented to the hospital today for increasing worsening shortness of breath.? She states that she was recently told by one of her doctors to cut down on her Lasix and hold it for a little while.? She states she has not taken it in the last 4 days and noticed worsening shortness of breath as the days went by.? She also had lower extremity edema.? She called back her doctor over the phone and was asked to restart Lasix.? She states she took it 2 days in a row however has not gotten better.? The only thing she has noticed is that the edema has improved however the shortness of breath is worsened.? She endorses orthopnea.? She states she is only slept for a few hours due to shortness of breath.? She states she called EMS and was brought to the hospital.? In route she was given a breathing treatme nt.? She has not eaten out recently and has not eaten at a restaurant.? She does not use added salt in her diet.? She has also been coughing with clear sputum.? At the time of my evaluation in the ER patient had already received 60 of Lasix and is starting to feel little bit better.? She is currently on BiPAP.? She states she would like to be a full code and she has a DPOA who is her son.? She states to call her son in case of any medical decision making if she is unable to make her own decisions for herself.? Patient denies a fever, nausea, vomiting, chest pain, bilateral pain, diarrhea, constipation. ED course: 130/55, 100% on 2 L nasal cannula, respiratory rate 13, pulse 86, temperature 97.6.? BNP 21,000, creatinine 0.9, baseline troponin 26, lactic acid 2, WBC normal, ABG obtained 7.44 PO2 67 on 2 L.? She appears slightly tachypneic.? Was given 60 of Lasix IV x1 and placed on BiPAP subsequently. Patient was admitted to [facility] for acute on chronic systolic and diastolic CHF exacerbation,, was managed in cardiac stepdown unit, received Lasix therapy, diuresed over 5 L, overall clinically improved to room air she did develop ERIC, Lasix had to be held for 48 hours, creatinine on discharge is 1.5. We will hold Lasix for today, resume Lasix 40 mg once daily tomorrow with potassium replacement therapy with follow-up with primary care provider for recheck kidney function next week, and follow-up with cardiology in 1 to 2 weeks. If she were to have any recurrent chest pain or shortness of breath to go to the emergency room Physical Exam Const: COMMON NORMALS: no acute distress and patient oriented x3 Resp: COMMON NORMALS: normal respiratory effort, No retractions, No use of accessory muscles and clear to auscultation bilaterally AUSCULTATION: clear to auscultation bilaterally Cardio: COMMON NORMALS: regular rate, regular rhythm, S1 normal heart sound present and S2 normal heart sound present RATE: regular rate RHYTHM: regular rhythm HEART SOUNDS: S1 normal heart sound present and S2 normal heart sound present GI: COMMON NORMALS: Normal to inspection, nondistended, normoactive bowel sounds present and non-tender Extremity: COMMON NORMALS: no pedal edema Neuro: COMMON NORMALS: patient oriented x3 Psych: COMMON NORMALS: mental status grossly normal Urinary Catheter Management: Velasquez: Cath Placed During This Visit: yes Reason for Continuing Indwelling Catheter: Accurate Measurement of Urinary Output in Critically Ill Patients Urinary Catheter Date of Insertion: 01/22/23 Urinary Catheter Time of Insertion: 21:53 Discharge Data Studies Completed and Pending Completed Studies During Hospitalization Category Date Time Status XR chest 1V portable [id number] Stat Exams 01/22/23 19:01 Completed CV. echo complete* [id number] Routine Ultrasound 01/23/23 08:18 Completed Pending at discharge Category Date Time Status Blood Culture Stat Lab 01/22/23 19:35 Results NT Pro B Type Natriuretic Pept QAM Lab 01/27/23 06:00 Ordered NT Pro B Type Natriuretic Pept QAM Lab 01/28/23 06:00 Ordered Radiology Impressions Chest X-Ray 01/22/23 19:01 IMPRESSION: Findings consistent with interstitial pulmonary edema. Laboratory Results WBC 3.5 10^3/uL (4.0-10.0) L 01/26/23 07:02 RBC 3.99 10^6/uL (4.1-5.3) L 01/26/23 07:02 Hgb 11.9 g/dL (11.5-15.3) 01/26/23 07:02 Hct 39.1 % (37.0-47.0) 01/26/23 07:02 MCV 98.0 fl (81-99) 01/26/23 07:02 MCH 29.8 pg (28.0-34.0) 01/26/23 07:02 MCHC 30.4 g/dL (30.0-36.0) 01/26/23 07:02 RDW 14.8 % (12.1-15.1) 01/26/23 07:02 Plt Count 174 10^3/cmm (130-400) 01/26/23 07:02 MPV 10.4 fL (7.4-10.4) 01/26/23 07:02 Neut % (Auto) 65.3 % 01/26/23 07:02 Lymph % (Auto) 20.7 % 01/26/23 07:02 [place] % (Auto) 11.9 % 01/26/23 07:02 Eos % (Auto) 0.9 % 01/26/23 07:02 Baso % (Auto) 0.9 % 01/26/23 07:02 Neut # (Auto) 2.30 10^3/uL (1.8-7.7) 01/26/23 07:02 Lymph # (Auto) 0.7 10^3/uL (0.8-4.8) L 01/26/23 07:02 [place] # (Auto) 0.4 10^3/uL (0.2-0.9) 01/26/23 07:02 Eos # (Auto) 0.0 10^3/uL (0.0-0.8) 01/26/23 07:02 Baso # (Auto) 0.0 10^3/uL (0.0-0.1) 01/26/23 07:02 Nucleated RBC % (auto) 0 % 01/26/23 07:02 Nucleated RBCs # 0.0 /100WBC 01/26/23 07:02 Specimen Type Arterial 01/22/23 19:35 Sample Site Brachial, left 01/22/23 19:35 ABG pH 7.44 (7.35-7.45) 01/22/23 19:35 ABG pCO2 29.5 mmHg (35-45) L 01/22/23 19:35 ABG pO2 67.2 mmHg (80.0-100.0) L 01/22/23 19:35 ABG HCO3 20.1 mmol/L (22-26) L 01/22/23 19:35 ABG Base Excess -3.2 mmol/L (-2.0-2.0) L 01/22/23 19:35 Roby Test Pos 01/22/23 19:35 Hematocrit 32.7 % (37-47) L 01/22/23 19:35 Hgb O2 Saturation 92.6 % (95-100) L 01/22/23 19:35 Carboxyhemoglobin 2.1 %THgb (0.4-20.1) 01/22/23 19:35 Methemoglobin 0.8 % (0.4-1.5) 01/22/23 19:35 Total Hemoglobin 10.7 g/dL (12-16) L 01/22/23 19:35 O2 Delivery Device Nc 01/22/23 19:35 O2 Liters/Min 2.0 % 01/22/23 19:35 Drawer Maker ID [id number] 01/22/23 19:35 Sodium 138 mmol/L (136-145) 01/26/23 07:02 Potassium 4.1 mmol/L (3.5-5.1) 01/26/23 07:02 Chloride 103 mmol/L (98-107) 01/26/23 07:02 Carbon Dioxide 19 mmol/L (22-29) L 01/26/23 07:02 Anion Gap 20.1 (5-19) H 01/26/23 07:02 BUN 38 mg/dL (8-23) H 01/26/23 07:02 Creatinine 1.5 mg/dL (0.5-0.9) H 01/26/23 07:02 GFR Calculation Not Reportable 01/26/23 07:02 Glucose 93 mg/dL (65-115) 01/26/23 07:02 Calculated Osmolality 295 mOsm/kg (285-295) 01/26/23 07:02 Lactic Acid 2.1 mmol/L (0.5-2.2) 01/22/23 19:13 Lactic Acid (Sepsis) 1.3 mmol/L (0.5-2.2) 01/22/23 21:43 Calcium 9.1 mg/dL (8.5-10.5) 01/26/23 07:02 Magnesium 2.1 mg/dL (1.7-2.3) 01/26/23 07:02 Total Bilirubin 0.3 mg/dL (0.15-1.2) 01/22/23 18:40 AST 26 U/L (0-32) 01/22/23 18:40 ALT 18 U/L (0-33) 01/22/23 18:40 Alkaline Phosphatase 133 U/L (35-105) H 01/22/23 18:40 Troponin T Baseline 26 ng/L (0-10) H 01/22/23 18:40 Troponin T 120 Minute 26.75 ng/L (0-10) H 01/22/23 20:37 Delta Troponin T 0.75 ABS# (0-10) 01/22/23 20:37 Troponin T Hi Sens 6Hr 37.94 ng/L (0-10) H 01/23/23 00:57 Troponin T Hi Sens 6Hr Delta 11.94 ng/L (0-12) 01/23/23 00:57 NT-Pro-B Natriuret Pep 6059 pg/mL (0-450) H 01/26/23 07:02 Total Protein 7.2 g/dL (6.6-8.7) 01/22/23 18:40 Albumin 4.4 g/dL (3.5-5.2) 01/22/23 18:40 Globulin 2.8 g/dL (1.3-4.6) 01/22/23 18:40 Procalcitonin 0.06 ng/mL (0-0.5) 01/22/23 20:37 SARS-CoV-2 Ag (Rapid) negative (Negative) 01/22/23 19:30 Vitals Last Vital Signs Temp 97.9 F 01/26/23 08:00 Pulse 101 H 01/26/23 09:01 Resp 18 01/26/23 09:01 BP 105/68 01/26/23 09:01 Pulse Ox 100 01/26/23 09:01 O2 Del Method Room Air 01/26/23 09:01 O2 Flow Rate 4 01/25/23 20:00 FiO2 30 01/23/23 00:00 Discharge Plan Discharge Patient Disposition: Home Condition: Fair Prescriptions: Continued lisinopril 5 mg tablet 5 mg PO DAILY Rx Instructions: *medication has been on hold for 2 weeks as of 01/23/23 per pt* nitroglycerin 0.4 mg tablet, sublingual 0.4 mg sublingual Q5M PRN (Reason: chest pain) Qty: 25 3RF Rx Instructions: do not exceed 3 doses per episode fluticasone propionate [Flonase Allergy Relief] 50 mcg/actuation spray,suspension 1 spray intranasal DAILY@07 Rx Instructions: administer into each nostril clopidogrel 75 mg tablet 75 mg PO DAILY@07 Hold Instructions: Resume on 11/22/22. metoprolol tartrate 50 mg tablet 50 mg PO BID@, ipratropium bromide 21 mcg (0.03 %) spray,non-aerosol 2 spray INTRANASAL TID PRN (Reason: drainage) multivitamin Tablet 1 tab PO DAILY@07 atorvastatin 40 mg tablet 40 mg PO BEDTIME@19 Aspir-81 81 mg Tablet,Delayed Release (Dr/Ec) 81 mg PO DAILY@07 Vitamin C 500 mg Tablet 1,000 mg PO BID@07,19 methenamine hippurate 1 gram tablet 1 g PO BID@07,19 Rx Instructions: Take 1000 mg of Vitamin C with each dose of Methenamine Lasix 40 mg tablet 40 mg PO DAILY 30 Days Qty: 30 1RF Rx Instructions: *medication has been on hold for 2 weeks as of 01/23/23 per pt* Klor-Con 20 mEq packet 20 meq PO DAILY 30 Days Qty: 30 0RF Rx Instructions: *medication has been on hold for 2 weeks as of 01/23/23 per pt* Discharge Orders: Discharge Order (Routine); Ordered 01/26/23 Ordered By: Rafi Wood Referrals: Spencer Maciel M.D [Physician] - 1 week Discharge Diet: Cardiac Discharge Activity: Resume usual activity Patient Instructions: Opioid Safety Activity Restrictions/Additional Instructions: - Have your primary care provider recheck your kidney function in 1 week, please follow-up with cardiology -Take Lasix 40 mg once daily with potassium replacement therapy, starting tomorrow Discharge Attestations Time Spent in Discharge Care*: greater than 30 min Quality Metrics Clinical Quality Measures [ No reported AMI, CVA or VTE this stay] Coding Level of Care Code 87210 Total time (in minutes) for Discharge: 45 Diagnoses Pulmonary edema J81.1 Acute respiratory failure with hypoxia J96.01 Systolic CHF I50.20 Chest pain R07.9 Chest pain type: unspecified Dyslipidemia E78.5 Peripheral arterial disease I73.9 NSTEMI (non-ST elevated myocardial infarction) I21.4 Acute kidney injury N17.9
--- NOTE | 2023-01-26 18:38 | P.PN_ITS ---
Subjective Subjective: Patient was seen this morning, sitting up in a chair, she is on room air she feels a lot better, she is happy that her kidney function is better Patient's Velasquez catheter was removed, patient has had only 45 cc urine output since her Velasquez catheter has been removed at 1130, Repeat BMP was ordered, I Connie monitor for the next 24 hours here in the hospital consider further Lasix today treatment, will consider renal ultrasound based on clinical progress Vitals/I&O/Wt Last Vital Signs Temp 98.4 F 01/26/23 16:24 Pulse 71 01/26/23 16:24 Resp 15 01/26/23 11:47 BP 125/59 01/26/23 16:24 Pulse Ox 99 01/26/23 16:24 O2 Del Method Room Air 01/26/23 11:47 O2 Flow Rate 4 01/25/23 20:00 FiO2 30 01/23/23 00:00 01/26/23 01/26/23 01/26/23 06:59 14:59 22:59 Intake Total 780 / 780 Output Total 350 / 925 450 / 450 Balance -350 / -85 330 / 330 Weight last 48 hrs Weight 48.619 kg Weight 49.158 kg Physical Exam Const: COMMON NORMALS: no acute distress and patient oriented x3 Resp: COMMON NORMALS: normal respiratory effort, No retractions, No use of accessory muscles and clear to auscultation bilaterally AUSCULTATION: clear to auscultation bilaterally Cardio: COMMON NORMALS: regular rate, regular rhythm, S1 normal heart sound present and S2 normal heart sound present RATE: regular rate RHYTHM: regular rhythm HEART SOUNDS: S1 normal heart sound present and S2 normal heart sound present GI: COMMON NORMALS: Normal to inspection, nondistended, normoactive bowel sounds present and non-tender Extremity: COMMON NORMALS: no pedal edema Neuro: COMMON NORMALS: patient oriented x3 Psych: COMMON NORMALS: mental status grossly normal Urinary Catheter Management: Velasquez: Cath Placed During This Visit: yes Reason for Continuing Indwelling Catheter: Accurate Measurement of Urinary Output in Critically Ill Patients Urinary Catheter Date of Insertion: 01/22/23 Urinary Catheter Time of Insertion: 21:53 Data 01/26/23 07:02 01/26/23 07:02 A&P Assessment and plan (1) Pulmonary edema: (2) Acute respiratory failure with hypoxia: (3) Systolic CHF: (4) Chest pain: Qualifiers: Chest pain type: unspecified Qualified Code(s): R07.9 - Chest pain, unspecified (5) Dyslipidemia: (6) Peripheral arterial disease: (7) NSTEMI (non-ST elevated myocardial infarction): (8) Acute kidney injury: Plan #Acute on chronic congestive systolic heart failure and diastolic #Was holding lasix at home #History of CAD, cardiogenic shock #History of dyslipidemia, hypertension, NSTEMI, PAD, ureteral obstruction status post stent placement and removal. #History of UTI #History of COPD/emphysema ? Creatinine 1.5, -5 L, off IV hydration however remains to have only 45 cc urin e output, after Velasquez catheter removed, repeat BMP will consider further doses of Lasix based on creatinine or fluids based on creatinine, renal ultrasound - hold Lasix ? Based on BiPAP for heart failure ? Place Velasquez catheter for accurate output ? Patient will need to be sent home on Lasix. BNP 21,000. Previous admissions that has been higher. Patient is clinically in CHF ? She denies any fever and does not have any other clinical signs of pneumonia. ? Continue aspirin, atorvastatin, Plavix, DuoNeb every 6 hours as needed, lisinopril, Lopressor ? Check CBC BMP in AM. Check magnesium. Replete electrolytes as needed ? Most recent echo is from June 2022 LV systolic function is moderately reduced with EF of 35 to 40% ?Grade 1 diastolic dysfunction ?Mild to moderate mitral regurgitation. ?Trace pulmonic regurgitation. ?Compared to prior echocardiogram from 08/2022, no significant ?changes are seen - EKG without acute ischemic changes. -NSTEMI, continue telemetry monitoring Full Code DVT PPX: Heparin subc BID DPOA: Son. Plan for today monitor urine blood, monitor BMP consider Lasix, consider renal ultrasound Attestations Medical Necessity Statement*: Patient requires hospital patient due to lack of urine output, Coding Level of Care Code 93157 Moderate MDM includes number and complexity of problems actively addressed during encounter, amount and/or complexity of data reviewed/ordered and described risk of complication, morbidity or mortality of management as docume nted Diagnoses Pulmonary edema J81.1 Acute respiratory failure with hypoxia J96.01 Systolic CHF I50.20 Chest pain R07.9 Chest pain type: unspecified Dyslipidemia E78.5 Peripheral arterial disease I73.9 NSTEMI (non-ST elevated myocardial infarction) I21.4 Acute kidney injury N17.9
[2023-01-26 18:56] LABS: Blood Urea Nitrogen 39 mg/dL (8-23); Carbon Dioxide 20 mmol/L (22-29); Chloride 100 mmol/L (98-107); Glucose 134 mg/dL (65-115); Osmolality Calculated 293 mOsm/kg (285-295); Sodium 136 mmol/L (136-145)
[2023-01-26 18:57] LABS: Anion Gap 19.8 (5-19); Potassium 3.8 mmol/L (3.5-5.1)
[2023-01-26] MEDS: atorvastatin 40 mg Tablet PO (20:22)
[2023-01-27 00:09] VITALS: BP 114/61; PULSE 75; RESP 18; O2SAT 100
[2023-01-27 04:11] VITALS: BP 114/61; PULSE 71; O2SAT 97
[2023-01-27 04:35] LABS: Basophils # 0.1 10^3/uL (0.0-0.1); Basophils % 1.3 %; Eosinophils # 0.1 10^3/uL (0.0-0.8); Eosinophils % 1.5 %; Hematocrit 42.2 % (37.0-47.0); Hemoglobin 12.6 g/dL (11.5-15.3); Lymphocytes % 22.2 %; Mean Corpuscular HGB Conc 29.9 g/dL (30.0-36.0); Mean Corpuscular Hemoglobin 30.4 pg (28.0-34.0); Mean Corpuscular Volume 101.7 fl (81-99); Mean Platelet Volume 10.8 fL (7.4-10.4); Monocytes # 0.7 10^3/uL (0.2-0.9); Monocytes % 15.8 %; Neutrophils # 2.73 10^3/uL (1.8-7.7); Nucleated Red Blood Cells % 0 %; Platelet Count 159 10^3/cmm (130-400); Red Blood Count 4.15 10^6/uL (4.1-5.3); Red Cell Distribution Width 14.7 % (12.1-15.1); White Blood Count 4.6 10^3/uL (4.0-10.0)
[2023-01-27 07:48] VITALS: BP 130/78; PULSE 96; RESP 17; O2SAT 94
[2023-01-27 07:50] VITALS: PULSE 80; RESP 16; O2SAT 94
[2023-01-27 08:00] VITALS: TEMP 37.3
[2023-01-27] MEDS: metoprolol tartrate 50 mg Tablet PO (08:04)
[2023-01-27] MEDS: clopidogrel 75 mg Tablet PO (08:04)
[2023-01-27] MEDS: aspirin 81 mg EC Tablet PO (08:04)
[2023-01-27 08:52] LABS: Alanine Aminotransferase 7 U/L (0-33); Albumin Level 4.2 g/dL (3.5-5.2); Alkaline Phosphatase 107 U/L (35-105); Anion Gap 18.9 (5-19); Aspartate Amino Transferase 13 U/L (0-32); Blood Urea Nitrogen 39 mg/dL (8-23); Calcium 9.9 mg/dL (8.5-10.5); Carbon Dioxide 23 mmol/L (22-29); Chloride 101 mmol/L (98-107); Globulin 2.9 g/dL (1.3-4.6); Glucose 93 mg/dL (65-115); Magnesium 2.3 mg/dL (1.7-2.3); Osmolality Calculated 297 mOsm/kg (285-295); Phosphorus 3.3 mg/dL (2.5-4.5); Potassium 3.9 mmol/L (3.5-5.1); Sodium 139 mmol/L (136-145); Total Bilirubin 0.5 mg/dL (0.15-1.2); Total Protein 7.1 g/dL (6.6-8.7)
[2023-01-27] MEDS: FUROsemide 40 mg Tablet PO (09:03)
[2023-01-27] MEDS: heparin 5,000 unit/mL INJ 1 mL 5000 UNIT SUBCUT (09:03)
[2023-01-27 09:15] LABS: NT Pro B Type Natriuretic Pept 8071 pg/mL (0-450)
[2023-01-27 11:36] VITALS: BP 137/65; PULSE 69; O2SAT 95
--- NOTE | 2023-01-27 11:57 | PC.SOCIAL ---
IMM Updated Updated pt on IMM. No questions voiced. Provided pt a copy. Initialed, dated, & timed copy in chart.
== END 2023-01-27 11:14 | disposition home or self-care (01) | DRG 291 ==
LOC: ER 19:52 → CSU 21:32
PROVIDERS: Admitting Provider Internal Medicine; Emergency Provider Emergency Medicine; PCP Family Medicine; Visit Provider Family Medicine
DX: I11.0 Hypertensive heart disease with heart failure (principal); I50.23 Acute on chronic systolic (congestive) heart failure; J96.01 Acute respiratory failure with hypoxia; N17.9 Acute kidney failure, unspecified; I25.10 Atherosclerotic heart disease of native coronary artery without angina pectoris; I42.9 Cardiomyopathy, unspecified; J43.9 Emphysema, unspecified; E78.5 Hyperlipidemia, unspecified; I25.2 Old myocardial infarction; F17.210 Nicotine dependence, cigarettes, uncomplicated; I73.9 Peripheral vascular disease, unspecified; Z79.02 Long term (current) use of antithrombotics/antiplatelets; Z79.82 Long term (current) use of aspirin
CPT/HCPCS: 36415; 36416; 36569; 36600; 51702; 70450; 71045; 71250; 72125; 73552; 73610; 74176; 78014; 80048; 80053; 81001; 82803; 82805; 82962; 83605; 83735; 83880; 84100; 84145; 84443; 84484; 85025; 85378; 87040; 87077; 87086; 87186; 87426; 93005; 93306; 93926; 94640; 94660; 94664; 96372; 96374; 96375; 96376; 97110; 97116; 97161; 97162; 97165; 97530; 97535; 99285; 99291; A9270; A9540; A9567; J0696; J1100; J1335; J1644; J1650; J1940; J2185; J2405; J3010; J7030; J7040; J7060

== ENCOUNTER 2023-01-28 14:15 | Inpatient (IN) | payer MEDICARE, MEDICAID, SELFPAY ==
[2023-01-28] VITALS (11 sets, daily range): BP systolic 114–135; BP diastolic 50–98; PULSE 103–109; RESP 18–29; TEMP 36.8; O2SAT 93–97; BMI 20.7
--- NOTE | 2023-01-28 14:17 | ED_ITS ---
HPI - Fall General: Chief Complaint: Fall Stated Complaint: RIGHT RIB PAIN S/P FALL Time Seen by Provider: 01/28/23 14:17 History of Present Illness: Ms. Gerardo is a 77-year-old lady with history of CHF, CAD, cardiomyopathy, COPD, recent hospitalization for shortness of breath presenting to the emergency department for fall with hip and side pain. She reports feeling okay when she left the hospital yesterday however this morning was walking and felt dizzy. She fell to the ground and was on the ground for approximately 15 minutes. Primarily fell on her right side and back. Denies loss of consciousness. Moderate intensity pain worse with palpation and movement. She also appears tachypneic and is requiring supplemental oxygen though denies shortness of breath. No other specific changes in health, exacerbating, or alleviating factors identified. Onset (ago): minute(s) Fall from: standing Loss of consciousness: Unsure Prolonged down time: minute(s) Symptoms prior to fall: dizziness Location of injury: chest, back and abdomen Severity: moderate Review of Systems General: Reports: 10 or more systems reviewed and unremarkable except in HPI and below PFSH ED PFSH: Medical History Acute exacerbation of chronic obstructive pulmonary disease Acute systolic CHF (congestive heart failure) Bacteriuria CAD (coronary artery disease) Cardiogenic shock Cardiomyopathy COPD (chronic obstructive pulmonary disease) Cystitis Dehydration Dyslipidemia Elevated troponin Elevated troponin I level Emphysema lung Essential hypertension Extrinsic ureteral obstruction Fall Heart failure Heart failure, systolic, with acute decompensation Hip pain Hypoxia Lactic acidosis NSTEMI (non-ST elevated myocardial infarction) Peripheral arterial disease Pyuria Respiratory failure with hypoxia and hypercapnia Retained ureteral stent Systolic CHF Tobacco abuse Urinary incontinence UTI (urinary tract infection) Surgical History H/O arthroscopic knee surgery bilateral H/O oral surgery H/O shoulder surgery H/O total hip arthroplasty right H/O: H/O: hysterectomy History of colon surgery Family History Mother , at age 79 Hypertension Peripheral artery disease Diabetes Father , at age 47 Cancer pancreatic and lung Social History Smoking and tobacco status: current some day smoker (quitting) cigarettes Packs smoked per day: 0.5 Years cigarettes smoked: 60 [ Other cigarette details: Hx of 1 PPD x 50 Years] Second hand smoke exposure: Yes Smoking risk assessment/counseling performed?: Yes Alcohol intake: never Substance/Drug Use: never Lives independently: Yes Housing: Apartment Marital status: Legally Current occupational status: retired and disabled Do you think of yourself as: Straight/Heterosexual Current gender identity: Female Physical Exam Const: COMMON NORMALS: alert GENERAL APPEARANCE: cooperative and well developed HENMT: COMMON NORMALS: normocephalic and atraumatic HEAD & SCALP: normocephalic and atraumatic OTHER: No bledsoe signs or raccoon eyes. No hemotympanum. No otorrhea or rhinorrhea. Jaw alignment normal. Dentition baseline. No obvious bony step-offs. No septal hematoma. No evidence of ocular entrapment. Eye: COMMON NORMALS: conjunctivae normal CONJUNCTIVA: Yes conjunctivae normal SCLERA: sclerae normal Neck/C-Spine: COMMON NORMALS: supple GENERAL: Yes trachea midline Resp: COMMON NORMALS: normal respiratory effort EFFORT & INSPECTION: Yes able to speak in complete sentences Cardio: COMMON NORMALS: regular rate and regular rhythm RATE: regular rate RHYTHM: regular rhythm GI: COMMON NORMALS: Soft to palpation PALPATION: Yes Soft to palpation and Yes Tenderness to palpation present (GI) Back/Pelvis: OTHER: Tenderness Extremity: GENERAL: Yes normal exam except as noted and No edema Neuro: COMMON NORMALS: moves all extremities SENSORIUM/ORIENTATION: Yes alert and No Orientation impaired Psych: COMMON NORMALS: mental status grossly normal and Normal thought process present THOUGHT PROCESS: Normal thought process present Course Vital Signs: Vital signs: Vital Signs Temperature 98.1 F 02/01/23 01:00 Pulse Rate 82 02/01/23 15:00 Respiratory Rate 17 02/01/23 15:00 Blood Pressure 137/62 02/01/23 15:00 Pulse Oximetry 100 02/01/23 11:00 Oxygen Delivery Me thod Nasal Cannula 02/01/23 08:00 Oxygen Flow Rate 2 02/01/23 08:00 MDM - Fall Medical Decision Making 77-year-old lady with complex past medical history presenting due to fall preceded by dizziness with rib and side pain as well as back pain. Unclear loss of consciousness. Head to toe exam performed. EKG notable for sinus rhythm with nonspecific ST segment abnormalities, normal axis, no STEMI. Labs with no leukocytosis, normal hemoglobin and platelet count. Metabolic panel with evidence of dehydration and ERIC. ABG with hypoxemia and respiratory compensation. Negative range 2-hour delta troponin. CT head negative for acute pathology. No cervical spine fracture identified. CT chest abdomen pelvis notable for emphysema changes, incidental findings d iscussed with patient. Patient has a greater than normal baseline oxygen demand and evidence of heart failure as well as ERIC requiring inpatient management. During ED course patient with RT treatment, small fluid bolus, analgesia, steroids. The results of ED evaluation were discussed with the patient including plan for admission due to requirement for level of care not available if discharged to prevent significant worsening/deterioration. Patient agreeable with plan. Discussed with hospitalist service who was agreeable to admit patient. Medical Records I reviewed the patient's medical records. Lab Data I reviewed the patient's lab results. 01/31/23 02:09 02/01/23 02:29 Radiology Impressions Femur X-Ray 01/28/23 14:39 IMPRESSION: 1. Intact well-aligned right hip prosthesis. No fracture. 2. 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 No definite subchondral collapse. Subchondral cortices are suboptimally visualized due to osteopenia. Cervical Spine CT 01/28/23 15:24 IMPRESSION: There is no evidence for fracture or facet dislocation. Chest/Abdomen/Pelvis CT 01/28/23 15:24 IMPRESSION: 1. No acute abnormality demonstrated. 2. Changes of centrilobular emphysema demonstrated. No consolidative pulmonary infiltrates are noted. 3. There is no significant change from the prior CT chest examination dated 07/12/2021. IMPRESSION: 1. Metallic artifact from hip prosthesis limits visualization of the lower pelvis. 2. Changes of avascular necrosis are seen in the left femoral head. There is moderate osteoarthritis associated. 3. Right ureteral stent noted. The stent is appropriately positioned. 4. Cholelithiasis, without changes of cholecystitis. 5. No acute abnormality demonstrated in the abdomen and pelvis. Head CT 01/28/23 15:24 IMPRESSION: There are no acute concerning abnormalities. Pulmonary Perfusion Imaging 01/30/23 07:00 IMPRESSION: 1. Low probability for pulmonary embolus. Duplex Scan Lower Extremity Artery 01/30/23 14:50 IMPRESSION: 1. No focal stenosis or occlusion. 2. Diffuse abnormal monophasic arterial waveforms throughout the right lower extremity suggesting significant runoff disease, along with SHIRLEY of 0.4 which is also suggestive of significant or severe runoff disease. Ankle X-Ray 01/31/23 10:19 IMPRESSION: No acute findings. Chest X-Ray 02/01/23 13:13 Impression: Satisfactory insertion of right PICC line. Laboratory Results WBC 10.0 10^3/uL (4.0-10.0) 01/28/23 15:38 RBC 4.46 10^6/uL (4.1-5.3) 01/28/23 15:38 Hgb 13.3 g/dL (11.5-15.3) 01/28/23 15:38 Hct 41.4 % (37.0-47.0) 01/28/23 15:38 MCV 92.8 fl (81-99) 01/28/23 15:38 MCH 29.8 pg (28.0-34.0) 01/28/23 15:38 MCHC 32.1 g/dL (30.0-36.0) 01/28/23 15:38 RDW 14.3 % (12.1-15.1) 01/28/23 15:38 Plt Count 212 10^3/cmm (130-400) 01/28/23 15:38 MPV 10.3 fL (7.4-10.4) 01/28/23 15:38 Neut % (Auto) 89.4 % 01/28/23 15:38 Lymph % (Auto) 4.3 % 01/28/23 15:38 [place] % (Auto) 5.5 % 01/28/23 15:38 Eos % (Auto) 0.1 % 01/28/23 15:38 Baso % (Auto) 0.2 % 01/28/23 15:38 Neut # (Auto) 8.89 10^3/uL (1.8-7.7) H 01/28/23 15:38 Lymph # (Auto) 0.4 10^3/uL (0.8-4.8) L 01/28/23 15:38 [place] # (Auto) 0.6 10^3/uL (0.2-0.9) 01/28/23 15:38 Eos # (Auto) 0.0 10^3/uL (0.0-0.8) 01/28/23 15:38 Baso # (Auto) 0.0 10^3/uL (0.0-0.1) 01/28/23 15:38 Nucleated RBC % (auto) 0 % 01/28/23 15:38 Nucleated RBCs # 0.0 /100WBC 01/28/23 15:38 Specimen Type Arterial 01/28/23 15:13 Sample Site Radial, left 01/28/23 15:13 ABG pH 7.47 (7.35-7.45) H 01/28/23 15:13 ABG pCO2 25.7 mmHg (35-45) L 01/28/23 15:13 ABG pO2 59.9 mmHg (80.0-100.0) L 01/28/23 15:13 ABG HCO3 18.5 mmol/L (22-26) L 01/28/23 15:13 ABG Base Excess -3.8 mmol/L (-2.0-2.0) L 01/28/23 15:13 Roby Test Pos 01/28/23 15:13 Hematocrit 39.5 % (37-47) 01/28/23 15:13 O2 Delivery Device Room air 01/28/23 15:13 FiO2 21.0 % 01/28/23 15:13 Seed Cleaning Machine Operator ID Cak 01/28/23 15:13 Sodium 133 mmol/L (136-145) L 01/28/23 15:38 Potassium 3.7 mmol/L (3.5-5.1) 01/28/23 15:38 Chloride 91 mmol/L (98-107) L 01/28/23 15:38 Carbon Dioxide 20 mmol/L (22-29) L 01/28/23 15:38 Anion Gap 25.7 (5-19) H 01/28/23 15:38 BUN 45 mg/dL (8-23) H 01/28/23 15:38 Creatinine 1.7 mg/dL (0.5-0.9) H 01/28/23 15:38 GFR Calculation Not Reportable 01/28/23 15:38 Glucose 128 mg/dL (65-115) H 01/28/23 15:38 Calculated Osmolality 289 mOsm/kg (285-295) 01/28/23 15:38 Calcium 10.4 mg/dL (8.5-10.5) 01/28/23 15:38 Total Bilirubin 0.9 mg/dL (0.15-1.2) 01/28/23 15:38 AST 12 U/L (0-32) 01/28/23 15:38 ALT 11 U/L (0-33) 01/28/23 15:38 Alkaline Phosphatase 127 U/L (35-105) H 01/28/23 15:38 Troponin T Baseline 140 ng/L (0-10) H* 01/28/23 15:38 Troponin T 120 Minute 121.7 ng/L (0-10) H 01/28/23 17:09 Delta Troponin T -18.3 ABS# (0-10) L 01/28/23 17:09 NT-Pro-B Natriuret Pep 20625 pg/mL (0-450) H 01/28/23 15:38 Total Protein 8.4 g/dL (6.6-8.7) 01/28/23 15:38 Albumin 4.7 g/dL (3.5-5.2) 01/28/23 15:38 Globulin 3.7 g/dL (1.3-4.6) 01/28/23 15:38 TSH 2.79 uIU/mL (0.27-4.20) 01/28/23 15:38 Discharge Plan Discharge Patient Disposition: Admitted As Inpatient Admit Provider: Camelia Moore Clinical Impression: Fall, Dehydration, Acute exacerbation of chronic obstructive pulmonary disease, Heart failure Condition: Stable Discharge Diet: Cardiac Discharge Activity: Increase activity as tolerated Coding Level of Care Code 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
--- NOTE | 2023-01-28 14:39 | XRR_ITS ---
PROCEDURE INFORMATION: Exam: XR Chest Exam date and time: 01/28/2023 3:04 PM Age: 77 years old Clinical indication: Injury or trauma; Fall; Blunt trauma (contusions or hematomas); Patient HX: PT had recent hospitalization for SOB; Dizzy 01/28/23 a. M. Fell. HX of chf, cad, copd, cardiomyopathy; Additional info: Fall, SOB TECHNIQUE: Imaging protocol: Radiologic exam of the chest. Views: 1 view. COMPARISON: CR (CHEST, ) 01/22/2023 7:10 PM FINDINGS: Lungs: Lungs are clear. Pleural spaces: There is no pleural effusion or pneumothorax. Heart/Mediastinum: Cardiomediastinal contours are unremarkable. Bones/joints: There is cortical irregularity of the left coracoid process. Bones are unremarkable otherwise. XR/XR chest 1V portable [id number] IMPRESSION: 1. Lungs are clear. 2. Left coracoid process fracture is new since 01/22/2023.
--- NOTE | 2023-01-28 14:39 | XRR_ITS ---
PROCEDURE INFORMATION: Exam: XR Right Femur Exam date and time: 01/28/2023 3:04 PM Age: 77 years old Clinical indication: Injury or trauma; Fall; Blunt trauma; Thigh or upper leg; Right; Prior surgery; Surgery date: 6+ months; Surgery type: RT hip jonathon; Patient HX: PT fell 01/28/23 a. M. Dizzy, C/O RT hip pain; Additional info: Fall, mid pain TECHNIQUE: Imaging protocol: Radiologic exam of the right femur. Views: 2 views. COMPARISON: US ROR venous duplex LE RT 11/10/2022 10:59 AM FINDINGS: Bones/joints: Bones are diffusely osteopenic. The right hip prosthesis is intact and well aligned. The visible portion of the pelvis and sacrum is intact. No acute fracture. There is extensive irregular bone sclerosis in the proximal tibia and femoral condyles consistent with avascular necrosis. Soft tissues: Visible soft tissues are unremarkable. Vasculature: There is a long vascular stent in the right thigh. XR/XR femur RT min 2V* [id number] IMPRESSION: 1. Intact well-aligned right hip prosthesis. No fracture. 2. 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 No definite subchondral collapse. Subchondral cortices are suboptimally visualized due to osteopenia.
--- NOTE | 2023-01-28 15:05 | ECG_ITS ---
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 Measurements Intervals [place] Rate: 100 P: 28 TN: 134 QRS: 42 QRSD: 109 T: 105 QT: 355 QTc: 459 Interpretive Statements SINUS TACHYCARDIA LEFT VENTRICULAR HYPERTROPHY AND ST-T CHANGE [VOLTAGE CRITERIA PLUS ST/T ABNORMALITY] Compared to ECG 01/23/2023 02:07:55 Sinus rhythm no longer present ST (T wave) deviation still present Electronically Signed On 01-28-2023 20:24:24 CDT by Spencer Maciel M.D. [id number]
[2023-01-28 15:24] LABS: ABG PCO2 25.7 mmHg (35-45); ABG PH Result 7.47 (7.35-7.45); Arterial Blood Gas Hematocrit 39.5 % (37-47); Base Excess ABG -3.8 mmol/L (-2.0-2.0); Blood Gas Allen Test Pos; Blood Gas Operator Identificat CAK; Blood Gas Sample Site Radial, left; Blood Gas Sample Type Arterial; HCO3 ABG 18.5 mmol/L (22-26); Oxygen Device ROOM AIR; PO2 ABG 59.9 mmHg (80.0-100.0)
--- NOTE | 2023-01-28 15:24 | CTR_ITS ---
PROCEDURE INFORMATION: Exam: CT Head Without Contrast Exam date and time: 01/28/2023 4:04 PM Age: 77 years old Clinical indication: Injury or trauma; Fall; Blunt trauma (contusions or hematomas) TECHNIQUE: Imaging protocol: Computed tomography of the head without contrast. Radiation optimization: All CT scans at this facility use at least one of these dose optimization techniques: automated exposure control; mA and/or kV adjustment per patient size (includes targeted exams where dose is matched to clinical indication); or iterative reconstruction. REPORTING DATA: Count of CT and Cardiac NM exams in prior 12 months: This patient has received 2 known CTs and 0 known cardiac nuclear medicine studies in the 12 months prior to the current study. COMPARISON: CT head wo con* [id number] 04/26/2022 12:39 PM RADIATION DOSE METRICS: Total DLP (mGy-cm): 1206.13 FINDINGS: Brain: Moderate white matter disease and volume loss are identified. There is no acute infarct or edema. No hemorrhage. Cerebral ventricles: No ventriculomegaly. Paranasal sinuses: Visualized sinuses are unremarkable. No fluid levels. Mastoid air cells: Visualized mastoid air cells are well aerated. Bones/joints: Unremarkable. No acute fracture. Soft tissues: Unremarkable. CT/CT head wo con* [id number] IMPRESSION: There are no acute concerning abnormalities.
--- NOTE | 2023-01-28 15:24 | CTR_ITS ---
PROCEDURE INFORMATION: Exam: CT Chest Without Contrast; Diagnostic Exam date and time: 01/28/2023 4:09 PM Age: 77 years old Clinical indication: Injury or trauma; Fall; Generalized; Blunt trauma (contusions or hematomas); Additional info: Fall, R sided pain TECHNIQUE: Imaging protocol: Diagnostic computed tomography of the chest without contrast. Radiation optimization: All CT scans at this facility use at least one of these dose optimization techniques: automated exposure control; mA and/or kV adjustment per patient size (includes targeted exams where dose is matched to clinical indication); or iterative reconstruction. REPORTING DATA: Count of CT and Cardiac NM exams in prior 12 months: This patient has received 2 known CTs and 0 known cardiac nuclear medicine studies in the 12 months prior to the current study. COMPARISON: CT chest 07/12/2021 11:39 AM RADIATION DOSE METRICS: Total DLP (mGy-cm): 495.28 FINDINGS: Lungs: Changes of centrilobular emphysema demonstrated. Mild dependent atelectasis in the bilateral lower lobes, right worse than left. No consolidative pulmonary infiltrates are noted. 3 mm calcified granuloma left lower lobe, series 5, image 39 no suspicious pulmonary nodules. Pleural spaces: No pleural effusion or pneumothorax noted. No pleural effusion or pneumothorax noted. Heart: No cardiomegaly. No pericardial effusion. Coronary arteries: The coronary arteries demonstrate atherosclerotic calcifications. Lymph nodes: Unremarkable. No enlarged lymph nodes. Vasculature: Atherosclerosis of the thoracic aorta noted. No aortic aneurysm. Bones/joints: Ribs appear intact. No fractures are identified. There is a chronic severe compression fracture of T8 vertebral body. This is unchanged from 07/12/2021. Mild to moderate chronic-appearing T11 compression fracture also noted. Soft tissues: The soft tissues are unremarkable as demonstrated. COMMENTS: In the absence of a history or active diagnosis of lung cancer, it is recommended that this patient with emphysema be evaluated for enrollment in a low dose CT lung cancer screening program. PROCEDURE INFORMATION: Exam: CT Abdomen And Pelvis Without Contrast Exam date and time: 01/28/2023 4:09 PM Age: 77 years old Clinical indication: Injury or trauma; Fall; Generalized; Blunt trauma (contusions or hematomas); Additional info: Fall, R sided pain TECHNIQUE: Imaging protocol: Computed tomography of the abdomen and pelvis without contrast. Radiation optimization: All CT scans at this facility use at least one of these dose optimization techniques: automated exposure control; mA and/or kV adjustment per patient size (includes targeted exams where dose is matched to clinical indication); or iterative reconstruction. REPORTING DATA: Count of CT and Cardiac NM exams in prior 12 months: This patient has received 2 known CTs and 0 known cardiac nuclear medicine studies in the 12 months prior to the current study. COMPARISON: CT abdomen pelvis dated 07/12/2021 11:39 AM RADIATION DOSE METRICS: Total DLP (mGy-cm): 495.28 FINDINGS: Limitations: Metallic artifact from hip prosthesis limits visualization of the lower pelvis. Liver: Unremarkable. No mass. Gallbladder and bile ducts: 5 mm calcified gallstone in the gallbladder. No ductal dilation. Pancreas: Unremarkable. No ductal dilation. Spleen: Unremarkable. No splenomegaly. Adrenal glands: Mild bilateral adrenal thickening. No adrenal mass. Kidneys and ureters: Atrophy of the right kidney. Nonobstructing 3 mm calculus noted in the left kidney. No hydronephrosis. Right ureteral stent noted. The stent is appropriately positioned. Stomach and bowel: No acute gastric abnormality demonstrated. Postop changes of the bowel are noted. No acute bowel abnormality is demonstrated. Appendix: No evidence of appendicitis. Intraperitoneal space: No pneumoperitoneum. No significant fluid collection. Vasculature: The aorta is atherosclerotic. No aortic aneurysm. Lymph nodes: No pathologically enlarged lymph nodes. Urinary bladder: There is air in the urinary bladder likely secondary to instrumentation. Distal loop of the right ureteral stent is present in the bladder. Reproductive: The uterus is not visualized, consistent with hysterectomy. Bones/joints: Diffuse osteopenia noted. Lumbar vertebral body heights are preserved. No compression fractures are demonstrated. Changes of avascular necrosis are seen in the left femoral head. There is moderate osteoarthritis associated. Soft tissues: The soft tissues are unremarkable as demonstrated. CT/[place] [id number] IMPRESSION: 1. No acute abnormality demonstrated. 2. Changes of centrilobular emphysema demonstrated. No consolidative pulmonary infiltrates are noted. 3. There is no significant change from the prior CT chest examination dated 07/12/2021. IMPRESSION: 1. Metallic artifact from hip prosthesis limits visualization of the lower pelvis. 2. Changes of avascular necrosis are seen in the left femoral head. There is moderate osteoarthritis associated. 3. Right ureteral stent noted. The stent is appropriately positioned. 4. Cholelithiasis, without changes of cholecystitis. 5. No acute abnormality demonstrated in the abdomen and pelvis.
--- NOTE | 2023-01-28 15:24 | CTR_ITS ---
PROCEDURE INFORMATION: Exam: CT Cervical Spine Without Contrast Exam date and time: 01/28/2023 4:04 PM Age: 77 years old Clinical indication: Injury or trauma; Fall; Blunt trauma TECHNIQUE: Imaging protocol: Computed tomography of the cervical spine without contrast. Radiation optimization: All CT scans at this facility use at least one of these dose optimization techniques: automated exposure control; mA and/or kV adjustment per patient size (includes targeted exams where dose is matched to clinical indication); or iterative reconstruction. REPORTING DATA: Count of CT and Cardiac NM exams in prior 12 months: This patient has received 2 known CTs and 0 known cardiac nuclear medicine studies in the 12 months prior to the current study. COMPARISON: US ROR carotid duplex BI 06/09/2022 9:50 AM RADIATION DOSE METRICS: Total DLP (mGy-cm): 185.8 FINDINGS: Bones/joints: No acute fracture. Normal alignment. Lungs: Lung apices are normal. Soft tissues: Unremarkable. CT/CT cervical spin wo con* [id number] IMPRESSION: There is no evidence for fracture or facet dislocation.
[2023-01-28] MEDS: fentaNYL 50 mcg/mL INJ 2mL 25 MCG IVP ×2 (15:43→20:50)
[2023-01-28 15:44] LABS: Basophils % 0.2 %; Eosinophils % 0.1 %; Hematocrit 41.4 % (37.0-47.0); Hemoglobin 13.3 g/dL (11.5-15.3); Lymphocytes # 0.4 10^3/uL (0.8-4.8); Lymphocytes % 4.3 %; Mean Corpuscular HGB Conc 32.1 g/dL (30.0-36.0); Mean Corpuscular Hemoglobin 29.8 pg (28.0-34.0); Mean Corpuscular Volume 92.8 fl (81-99); Mean Platelet Volume 10.3 fL (7.4-10.4); Monocytes # 0.6 10^3/uL (0.2-0.9); Monocytes % 5.5 %; Neutrophils # 8.89 10^3/uL (1.8-7.7); Neutrophils % 89.4 %; Nucleated Red Blood Cells % 0 %; Platelet Count 212 10^3/cmm (130-400); Red Blood Count 4.46 10^6/uL (4.1-5.3); Red Cell Distribution Width 14.3 % (12.1-15.1)
[2023-01-28 16:09] LABS: Alanine Aminotransferase 11 U/L (0-33); Albumin Level 4.7 g/dL (3.5-5.2); Alkaline Phosphatase 127 U/L (35-105); Anion Gap 25.7 (5-19); Aspartate Amino Transferase 12 U/L (0-32); Blood Urea Nitrogen 45 mg/dL (8-23); Calcium 10.4 mg/dL (8.5-10.5); Carbon Dioxide 20 mmol/L (22-29); Chloride 91 mmol/L (98-107); Globulin 3.7 g/dL (1.3-4.6); Glucose 128 mg/dL (65-115); Osmolality Calculated 289 mOsm/kg (285-295); Potassium 3.7 mmol/L (3.5-5.1); Sodium 133 mmol/L (136-145); Total Bilirubin 0.9 mg/dL (0.15-1.2); Total Protein 8.4 g/dL (6.6-8.7)
[2023-01-28 16:11] LABS: Troponin(5th) Baseline 140 ng/L (0-10)
[2023-01-28 16:12] LABS: NT Pro B Type Natriuretic Pept 11115 pg/mL (0-450); Thyroid Stimulating Hormone 2.79 uIU/mL (0.27-4.20)
--- NOTE | 2023-01-28 16:40 | ECG_ITS ---
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 Measurements Intervals [place] Rate: 102 P: 6 AK: 156 QRS: 50 QRSD: 109 T: 84 QT: 373 QTc: 486 Interpretive Statements SINUS TACHYCARDIA LEFT VENTRICULAR HYPERTROPHY AND ST-T CHANGE [VOLTAGE CRITERIA PLUS ST/T ABNORMALITY] POSSIBLE INFERIOR MYOCARDIAL INFARCTION , PROBABLY OLD [30 ms Q WAVE IN II/aVF] Compared to ECG 01/28/2023 15:05:22 Myocardial infarct finding now present ST (T wave) deviation still present Electronically Signed On 01-28-2023 20:24:57 CDT by Spencer Maciel M.D. [id number]
[2023-01-28 17:50] LABS: Troponin 5 2HR 121.7 ng/L (0-10); Troponin 5 2HR Delta -18.3 ABS# (0-10)
[2023-01-28] MEDS: sodium chloride 0.9% 500 ML 999 ML IV (19:07)
[2023-01-28] MEDS: ipratropium-albuterol 3 mL Neb INHALATION (19:09)
[2023-01-28] MEDS: dexamethasone 10 mg/mL INJ IVP (20:01)
--- NOTE | 2023-01-28 20:40 | ECG_ITS ---
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 Measurements Intervals [place] Rate: 103 P: 15 MT: 154 QRS: 52 QRSD: 113 T: 114 QT: 385 QTc: 504 Interpretive Statements SINUS TACHYCARDIA VOLTAGE CRITERIA FOR LVH [MEETS CRITERIA IN ONE OF: R(aVL), S(V1), R(V5), R(V5/V6)+S(V1)] PROBABLE INFERIOR MYOCARDIAL INFARCTION , OF INDETERMINATE AGE [35 ms Q WAVE IN II/aVF] Compared to ECG 01/28/2023 18:02:46 ST (T wave) deviation no longer present Myocardial infarct finding still present Electronically Signed On 01-28-2023 20:24:44 CDT by Spencer Maciel M.D. [email or web address])[facility].[employer]/store/OM/[id number]
[2023-01-28] MEDS: acetaminophen 325 mg Tablet 650 MG PO (21:00)
[2023-01-28 23:53] LABS: Troponin 5 6HR Delta 15.9 ng/L (0-12)
[2023-01-28 23:54] LABS: Troponin 5 6HR 155.9 ng/L (0-10)
[2023-01-29] VITALS (10 sets, daily range): BP systolic 105–148; BP diastolic 61–87; PULSE 66–101; RESP 16–24; TEMP 36.3–37.8; O2SAT 91–98
--- NOTE | 2023-01-29 00:30 | PM.HP ---
Providers/Chief Complaint Admitting Physician: Camelia Moore MD Primary Care Provider: Catalino Sanders MD Chief Complaint: RIGHT RIB PAIN S/P FALL History of Present Illness Denia Gerardo is a 77 year old female past medical history of CAD, cardiogenic shock, COPD, dyslipidemia, hypertension, emphysema, NSTEMI, peripheral arterial disease, nephrolithiasis status post ureteral stent placement, UTI, systolic congestive heart failure. She was recently admitted to the hospital between January 22 to January 27, 2023 for acute on chronic CHF management. She received aggressive diuresis with IV Lasix, was net -5 L by the time of discharge, and mildly elevated troponins and concern for NSTEMI at that time managed conservatively. She returned to the emergency room on 520 with chief complaints of feeling dizzy this morning which caused her to have a presyncopal episode which caused her to fall. Since then she had had pain in her hip. X-rays have not revealed any acute fractures. She was noted to be tachypneic on exam, requiring supplemental oxygen, noted to have Rales on exam. She denies any current chest pain. EKG is without any acute ST-T wave changes, however troponins are noted to be elevated in the 140s range. Review of Systems General: Reports: 10 or more systems reviewed and unremarkable except in HPI and below Const: Denies: fever(s), chills or body aches Eyes: Denies: change in vision, blurry vision or photophobia ENMT: Reports: hoarseness; Denies: throat pain, enlarged tonsils, odynophagia or nasal congestion Card: Denies: chest pain, palpitations, irregular heart rhythm, edema, swelling of feet/ankles, lightheadedness, pre-syncope, dyspnea on exertion or orthopnea Resp: Denies: dyspnea, productive cough, non-productive cough, wheezing, stridor, pain on inspiration, change in phlegm color, hemoptysis or chest congestion GI: Denies: abdominal pain, nausea, vomiting, hematemesis, coffee ground emesis, dysphagia, heartburn, diarrhea, constipation, GI cramping, change in stool character, hematochezia or melena : Denies: flank pain, difficulty voiding, dysuria, urinary frequency, urinary urgency, urinary hesitancy or hematuria Musc: Denies: neck pain, back pain, extremity pain, joint swelling, joint warmth or deformity Neuro: Denies: headache(s), numbness in extremities, weakness in extremities, sensory changes, difficulty walking, frequent falls, dizziness, vertigo, behavioral changes, Slurred speech present or seizure-like activity Psych: Denies: anxiety, depression, suicidal ideation or homicidal ideation Endo: Denies: polyuria, polydipsia, tired all the time, cold intolerance or hot flashes Elia/Lymph: Denies: easy bruising or easy bleeding Medications/Allergies Home Medications Medication Instructions Recorded Confirmed Last Taken Type fluticasone propionate 50 1 spray intranasal DAILY@07/26/22 01/28/23 08/19/22 History mcg/actuation nasal spray,suspension (Flonase Allergy Relief) clopidogrel 75 mg tablet 75 mg PO DAILY@08/19/22 01/28/23 01/28/23 History metoprolol tartrate 50 mg tablet 50 mg PO BID@08/19/22 01/28/23 01/28/23 History lisinopril 5 mg tablet 5 mg PO DAILY 10/20/22 01/28/23 2 Weeks Ago History ~01/09/23 nitroglycerin 0.4 mg sublingual 0.4 mg sublingual Q5M PRN chest 10/20/22 01/28/23 Unknown Rx tablet pain #25 tabs ipratropium bromide 21 mcg (0.03 2 spray intranasal TID PRN drainage 01/22/23 01/28/23 Unknown History %) nasal spray ascorbic acid (vitamin C) 500 mg 1,000 mg PO BID@01/23/23 01/28/23 01/28/23 History tablet (Vitamin C) aspirin 81 mg tablet,delayed 81 mg PO DAILY@01/23/23 01/28/23 01/28/23 History release atorvastatin 40 mg tablet 40 mg PO BEDTIME@01/23/23 01/28/23 01/27/23 History methenamine hippurate 1 gram tablet 1 g PO BID@01/23/23 01/28/23 01/28/23 History multivitamin 1 tab PO DAILY@01/23/23 01/28/23 01/28/23 History furosemide 40 mg tablet (Lasix) 40 mg PO DAILY 30 days #30 tabs 01/26/23 01/28/23 Unknown Rx potassium chloride 20 mEq oral 20 meq PO DAILY 30 days #30 ea 01/26/23 01/28/23 Unknown Rx packet (Klor-Con) Allergies Allergy/AdvReac Type Severity Reaction Status Date / Time meperidine [From Demerol] Allergy Unknown Unknown Verified 01/28/23 14:35 morphine Allergy Unknown Unknown Verified 01/28/23 14:35 PFSH Acute PFSH: Medical History (Updated 01/29/23 @ 07:15 by Camelia Moore MD) Acute systolic CHF (congestive heart failure) CAD (coronary artery disease) Cardiogenic shock Cardiomyopathy COPD (chronic obstructive pulmonary disease) Cystitis Dyslipidemia Elevated troponin Elevated troponin I level Emphysema lung Essential hypertension Extrinsic ureteral obstruction Heart failure, systolic, with acute decompensation Hypoxia Lactic acidosis NSTEMI (non-ST elevated myocardial infarction) Peripheral arterial disease Respiratory failure with hypoxia and hypercapnia Retained ureteral stent Syncope and collapse Systolic CHF Tobacco abuse Urinary incontinence UTI (urinary tract infection) Surgical History H/O arthroscopic knee surgery bilateral H/O oral surgery H/O shoulder surgery H/O total hip arthroplasty right H/O: H/O: hysterectomy History of colon surgery Family History Mother , at age 79 Hypertension Peripheral artery disease Diabetes Father , at age 47 Cancer pancreatic and lung Social History Smoking and tobacco status: current some day smoker (quitting) cigarettes Packs smoked per day: 0.5 Years cigarettes smoked: 60 [ Other cigarette details: Hx of 1 PPD x 50 Years] Second hand smoke exposure: Yes Smoking risk assessment/counseling performed?: Yes Alcohol intake: never Substance/Drug Use: never Lives independently: Yes Housing: Apartment Marital status: Legally Current occupational status: retired and disabled Do you think of yourself as: Straight/Heterosexual Current gender identity: Female Vitals/I&O/Wt Last Vital Signs Temp 98.2 F 01/28/23 14:19 Pulse 108 H 01/28/23 21:05 Resp 23 H 01/28/23 21:05 BP 120/51 05/20/23 21:05 Pulse Ox 93 01/28/23 21:05 O2 Del Method Nasal Cannula 01/28/23 21:05 O2 Flow Rate 3 01/28/23 21:05 01/28/23 01/28/23 01/29/23 14:59 22:59 06:59 Intake Total 500 / 500 Balance 500 / 500 Weight last 48 hrs Weight 49.895 kg Physical Exam Narrative: General: No acute distress, AO x3 HEENT: PERRLA, pupils bilaterally equal and reactive, pallors not present Chest: Normal vesicular breath sounds, no added sounds, equal good air entry bilaterally CVS: S1-S2 regular, no murmurs, no tachycardia, no gallops, no rubs Abdomen: Soft, nontender, no organomegaly, bowel sounds present Neuro: No focal deficits, no facial deformity, AO x3, power 5/5 in all limbs Data 01/28/23 15:38 01/28/23 15:38 Other Labs: 01/28/23 15:13 ABG pH 7.47 H ABG pCO2 25.7 L ABG pO2 59.9 L ABG HCO3 18.5 L ABG Base Excess -3.[address]/[place] [id number] IMPRESSION: 1. ? No acute abnormality demonstrated. 2. ? Changes of centrilobular emphysema demonstrated. No consolidative pulmonary infiltrates are noted. 3. ? There is no significant change from the prior CT chest examination dated 07/12/2021. ? IMPRESSION: 1. ? Metallic artifact from hip prosthesis limits visualization of the lower pelvis. 2. ? Changes of avascular necrosis are seen in the left femoral head. There is moderate osteoarthritis associated. 3. ? Right ureteral stent noted. The stent is appropriately positioned. 4. ? Cholelithiasis, without changes of cholecystitis. 5. ? No acute abnormality demonstrated in the abdomen and pelvis. ? CT/CT cervical spin wo con* [id number] IMPRESSION: There is no evidence for fracture or facet dislocation. ? A&P Assessment and plan (1) Fall: (2) Systolic CHF: (3) Hip pain: (4) NSTEMI (non-ST elevated myocardial infarction): Plan 77-year-old lady with recent admission for acute on chronic systolic heart failure exacerbation, return to the emergency room with an episode of dizziness, presyncope and fall. Complaining of hip pain since then, x-rays taken, per my read no acute fractures are noted. Official femur x-ray read is still pending from radiology. CT head without acute intracranial abnormalities Noted to be tachypneic on exam, chest x-ray showing bilateral infiltrates and Rales on exam raise concern for acute on chronic systolic CHF exacerbation Lasix 40 mg IV every 12 hours Baseline troponin elevated at 140, downtrending at 2 hours with a negative delta. Awaiting 6-hour troponin trend Findings may be related to NSTEMI versus demand ischemia Start Lovenox 1 mg/kg every 12 hours. Continue home doses of aspirin, Plavix, metoprolol Monitor closely on telemetry. Attestations Medical Necessity Statement*: Greater than 2 midnight admission is anticipated for CHF exacerbation, IV diuretics, NSTEMI need for anticoagulation, awaiting troponin trends Coding Level of Care Code Acute Code for [facility] Fwd Diagnoses Fall W19.XXXA Systolic CHF I50.20 Hip pain M25.559 NSTEMI (non-ST elevated myocardial infarction) I21.4
[2023-01-29] MEDS: enoxaparin 60 mg/0.6 mL Syringe 50 MG SUBCUT (02:01)
[2023-01-29] MEDS: metoprolol tartrate 50 mg Tablet PO ×3 (02:01→18:07)
[2023-01-29] MEDS: FUROsemide 10 mg/mL SDV 4mL 40 MG IVP (05:54)
[2023-01-29] MEDS: aspirin 81 mg EC Tablet PO (06:00)
[2023-01-29] MEDS: clopidogrel 75 mg Tablet PO (06:00)
[2023-01-29 07:21] LABS: Alanine Aminotransferase 11 U/L (0-33); Alkaline Phosphatase 100 U/L (35-105); Anion Gap 20.6 (5-19); Aspartate Amino Transferase 28 U/L (0-32); Blood Urea Nitrogen 43 mg/dL (8-23); Calcium 9.4 mg/dL (8.5-10.5); Carbon Dioxide 20 mmol/L (22-29); Chloride 99 mmol/L (98-107); Globulin 3.2 g/dL (1.3-4.6); Glucose 131 mg/dL (65-115); Osmolality Calculated 295 mOsm/kg (285-295); Potassium 3.6 mmol/L (3.5-5.1); Sodium 136 mmol/L (136-145); Total Bilirubin 0.6 mg/dL (0.15-1.2); Total Protein 7.2 g/dL (6.6-8.7)
[2023-01-29] MEDS: pantoprazole DR 40 mg Tablet PO (08:15)
[2023-01-29 08:34] LABS: D Dimer 4.87 ug/mIFEU (0-0.59)
--- NOTE | 2023-01-29 09:02 | P.MISC_ITS ---
Miscellaneous Note Note: She was upset that she was n.p.o. I have resumed her diet There is no sign of fracture She does have chronically occluded coronary vessels Chronic avascular necrosis No active chest pain or shortness of breath She is doing well on room air Oxygen has been weaned off Pleasant and cooperative Looks euvolemic Nonfocal neuro exam I have called her son who told me that she was recommended open heart surgery because aerographer could not go through groin or radial she is being managed medically she does not want any surgical invention No active chest pain We will request VQ scan to rule out PE for high D-dimer Currently on room air For chronic kidney disease monitor for now Discontinue IV Lasix I would use p.o. for now Patient is full code Echo was done recently I would not do another 1 Currently on cardiac diet
[2023-01-29] MEDS: atorvastatin 40 mg Tablet PO (18:07)
[2023-01-30] VITALS (35 sets, daily range): BP systolic 71–129; BP diastolic 40–77; PULSE 68–120; RESP 16–30; TEMP 36.3–38.6; O2SAT 91–99
[2023-01-30] MEDS: enoxaparin 60 mg/0.6 mL Syringe 50 MG SUBCUT (01:23)
[2023-01-30] MEDS: oxyCODONE-APAP 5-325 mg Tablet 1 TAB PO ×2 (01:57→20:39)
--- NOTE | 2023-01-30 02:02 | PC.NURSE ---
FEVER Was reported by aide with midnight VS to have temp or 100.. Rechecked now and is 101.5. HR is increased to 120. Was also c/o R hip pain so gave her po Oxycodone for pain and the Tylenol will help with fever. Also have replaced O2 at 3l per NC due to sat being low on RA while sleeping. Is presently 98%
[2023-01-30 05:52] LABS: Basophils % 0.3 %; Hematocrit 33.5 % (37.0-47.0); Hemoglobin 10.8 g/dL (11.5-15.3); Lymphocytes # 0.5 10^3/uL (0.8-4.8); Mean Corpuscular HGB Conc 32.2 g/dL (30.0-36.0); Mean Corpuscular Hemoglobin 30.3 pg (28.0-34.0); Mean Corpuscular Volume 94.1 fl (81-99); Mean Platelet Volume 10.8 fL (7.4-10.4); Monocytes % 8.3 %; Neutrophils # 9.91 10^3/uL (1.8-7.7); Nucleated Red Blood Cells % 0 %; Platelet Count 191 10^3/cmm (130-400); Red Blood Count 3.56 10^6/uL (4.1-5.3); Red Cell Distribution Width 14.5 % (12.1-15.1); White Blood Count 11.5 10^3/uL (4.0-10.0)
[2023-01-30 06:13] LABS: Blood Urea Nitrogen 50 mg/dL (8-23); Calcium 9.1 mg/dL (8.5-10.5); Carbon Dioxide 19 mmol/L (22-29); Chloride 100 mmol/L (98-107); Glucose 117 mg/dL (65-115); Osmolality Calculated 296 mOsm/kg (285-295); Sodium 136 mmol/L (136-145)
[2023-01-30] MEDS: aspirin 81 mg EC Tablet PO (06:31)
[2023-01-30] MEDS: clopidogrel 75 mg Tablet PO (06:31)
[2023-01-30] MEDS: metoprolol tartrate 50 mg Tablet PO (06:31)
--- NOTE | 2023-01-30 07:00 | NM_ITS ---
WS: [id number] NUCLEAR MEDICINE LUNG VENTILATION AND PERFUSION CLINICAL INFORMATION: hypoxia TECHNIQUE: Ventilation/perfusion lung scan with 32.8 mCi technetium 99m DTPA. 5.4 mCi MAA COMPARISON: Radiograph January 28, 2023 FINDINGS: Hyperinflation with chronic emphysematous changes on the prior radiograph. Patchy radiotracer deposition on the ventilatory images compatible with emphysema. Central deposition along the bronchi. Slightly patchy radiotracer uptake on the perfusion images. A few matched perfusi on defects. No mismatched ventilation/perfusion defects to indicate pulmonary embolus. NM/NM pul vent and perfus* [id number] IMPRESSION: 1. Low probability for pulmonary embolus.
[2023-01-30 07:22] LABS: Specific Gravity, Urine 1.015 (1.005-1.030); Urine Appearance Cloudy (CLEAR); Urine Color Yellow (Yellow); pH Urine 5 (5-7)
[2023-01-30 07:23] LABS: Add Urine Culture? Yes; Add Urine Microscopic? YES; Bacteria Urine 3+ /hpf; Bilirubin Urine Neg (Negative); Blood Urine 3+ (Negative); Glucose Urine UA Norm (Normal); Ketones Urine 1+ (Negative); Leukocyte Esterase Urine 2+ (Negative); Nitrate Urine Positive (Negative); Protein Urine Neg (Negative); Squamous Epithelial Cell Urine 0-4 /hpf (0-5); Urobilinogen Urine Norm (Negative); WBC Urine TOO NUMEROUS TO CNT /hpf (0-5)
[2023-01-30] MEDS: cefTRIAXone 1,000 MG in sodium chloride 0.9% (plus) 50 ML 100 MG IV (10:00)
[2023-01-30] MEDS: pantoprazole DR 40 mg Tablet PO (10:00)
[2023-01-30] MEDS: FUROsemide 40 mg Tablet PO (10:00)
[2023-01-30] MEDS: lisinopril 5 mg Tablet PO (10:00)
[2023-01-30 12:15] LABS: Glucose Point of Care 101 mg/dL (70-110)
[2023-01-30] MEDS: sodium chloride 0.9% 1,000 ML 999 ML IV (12:17)
--- NOTE | 2023-01-30 12:59 | PC.NURSE ---
Notified Dr. Loya patients blood pressure 76/34 manually by three people[address] Dr. Loya ordered a 1,000 ml bolus of normal saline.
--- NOTE | 2023-01-30 13:35 | P.PN_ITS ---
Subjective Subjective: Patient became hypotensive 250 mL bolus after getting hypotensive with the VQ scan study Vitals/I&O/Wt Last Vital Signs Temp 98.0 F 01/30/23 12:00 Pulse 76 01/30/23 12:00 Resp 22 H 01/30/23 12:00 BP 96/54 01/30/23 12:00 Pulse Ox 95 01/30/23 12:00 O2 Del Method Nasal Cannula 01/30/23 12:00 O2 Flow Rate 3 01/30/23 08:00 01/29/23 01/30/23 01/30/23 22:59 06:59 14:59 Intake Total 360 / 600 100 / 700 120 / 120 Balance 360 / 600 100 / 700 120 / 120 Weight last 48 hrs Weight 49.895 kg Weight 49.895 kg Physical Exam Narrative: Awake and alert no active confusion Currently on 2 L Abdomen soft Nonfocal neuro exam Complaining of leg pain Data 01/30/23 05:14 01/30/23 05:14 A&P Assessment and plan (1) NSTEMI (non-ST elevated myocardial infarction): (2) Hip pain: (3) Fall: (4) Dehydration: (5) Acute exacerbation of chronic obstructive pulmonary disease: (6) Heart failure: (7) Systolic CHF: (8) Peripheral arterial disease: (9) Pyuria: (10) Bacteriuria: Plan Non-STEMI No active chest pain Currently patient is Once a day Continue aspirin Plavix We will request limited echo Patient carries history of coronary disease, cardiogenic shock in the past, peripheral arterial disease She is also complaining of leg pain I will request arterial duplex Medical management Recommended for her NSTEMI in the past Son stated that they would never agree for open bypass surgery they would like to treat her medically Acute hypotension related to drug-induced Hold and evidence of 1200 mL bolus given Mild reduced EF CHF exacerbation EF 35% Hold Lasix because of low blood pressure UTI continue ceftriaxone febrile events noted At the time of low blood pressure she is not febrile Ceftriaxone added Full code We will keep son updated Attestations Medical Necessity Statement*: Continue medical management to ICU Diagnoses NSTEMI (non-ST elevated myocardial infarction) I21.4 Hip pain M25.559 Fall W19.XXXA Dehydration E86.0 Acute exacerbation of chronic obstructive pulmonary disease J44.1 Heart failure I50.9 Systolic CHF I50.20 Peripheral arterial disease I73.9 Pyuria R82.81 Bacteriuria R82.71
[2023-01-30] MEDS: sodium chloride 0.9% 250 ML 999 ML IV (14:00)
--- NOTE | 2023-01-30 14:50 | USR_ITS ---
PROCEDURE INFORMATION: Exam: US Duplex Right Lower Extremity Arteries Or Arterial Bypass Grafts Exam date and time: 01/30/2023 3:57 PM Age: 77 years old Clinical indication: Condition or disease; Peripheral vascular disease; Prior surgery; Surgery date: 6+ months; Surgery type: Stent placement; Additional info: Peripheral arterial disease TECHNIQUE: Imaging protocol: Right Real-time duplex scan of the arteries or arterial bypass grafts of the right lower extremity with 2-D yañez scale, color Doppler flow and spectral waveform analysis. Images documented and saved. COMPARISON: US ROR venous duplex LE RT 11/10/2022 10:59 AM FINDINGS: Right common femoral artery: No occlusion or significant stenosis. Abnormal monophasic waveform. No pseudoaneurysm in the inguinal region. Right superficial femoral artery: No occlusion or significant stenosis. Abnormal monophasic waveform. Stent noted proximal to distal superficial femoral artery appearing patent. Right popliteal artery: No occlusion or significant stenosis. Abnormal monophasic waveform. Right calf/foot arteries: No occlusion or significant stenosis in the visualized arteries. Abnormal monophasic waveforms. Dorsalis pedis artery is patent. Soft tissues: No hematoma or collection. US/[place] [id number] IMPRESSION: 1. No focal stenosis or occlusion. 2. Diffuse abnormal monophasic arterial waveforms throughout the right lower extremity suggesting significant runoff disease, along with SHIRLEY of 0.4 which is also suggestive of significant or severe runoff disease.
[2023-01-30] MEDS: atorvastatin 40 mg Tablet PO (17:57)
[2023-01-31] VITALS (48 sets, daily range): BP systolic 77–153; BP diastolic 39–71; PULSE 67–91; RESP 13–38; O2SAT 91–99
[2023-01-31] MEDS: enoxaparin 60 mg/0.6 mL Syringe 50 MG SUBCUT ×2 (01:48→11:20)
[2023-01-31 02:32] LABS: Basophils % 0.3 %; Hematocrit 28.6 % (37.0-47.0); Hemoglobin 9.2 g/dL (11.5-15.3); Lymphocytes # 0.6 10^3/uL (0.8-4.8); Lymphocytes % 8.1 %; Mean Corpuscular HGB Conc 32.2 g/dL (30.0-36.0); Mean Corpuscular Hemoglobin 30.5 pg (28.0-34.0); Mean Corpuscular Volume 94.7 fl (81-99); Mean Platelet Volume 10.8 fL (7.4-10.4); Monocytes # 0.7 10^3/uL (0.2-0.9); Monocytes % 8.4 %; Neutrophils # 6.39 10^3/uL (1.8-7.7); Neutrophils % 82.4 %; Nucleated Red Blood Cells % 0 %; Platelet Count 154 10^3/cmm (130-400); Red Blood Count 3.02 10^6/uL (4.1-5.3); Red Cell Distribution Width 14.8 % (12.1-15.1); White Blood Count 7.8 10^3/uL (4.0-10.0)
[2023-01-31 02:45] LABS: Anion Gap 17.9 (5-19); Blood Urea Nitrogen 49 mg/dL (8-23); Calcium 8.8 mg/dL (8.5-10.5); Carbon Dioxide 20 mmol/L (22-29); Chloride 102 mmol/L (98-107); Glucose 98 mg/dL (65-115); Osmolality Calculated 297 mOsm/kg (285-295); Sodium 137 mmol/L (136-145)
[2023-01-31 02:54] LABS: Potassium 2.9 mmol/L (3.5-5.1)
[2023-01-31] MEDS: potassium chloride ER 20 mEq Tablet PO (03:49)
[2023-01-31] MEDS: aspirin 81 mg EC Tablet PO (06:32)
[2023-01-31] MEDS: clopidogrel 75 mg Tablet PO (06:32)
[2023-01-31] MEDS: sennosides-docusate Tablet 1 TAB PO (09:03)
[2023-01-31] MEDS: cefTRIAXone 1,000 MG in sodium chloride 0.9% (plus) 50 ML 100 MG IV (09:03)
[2023-01-31] MEDS: pantoprazole DR 40 mg Tablet PO (09:03)
--- NOTE | 2023-01-31 10:19 | XRR_ITS ---
PROCEDURE INFORMATION: Exam: XR Right Ankle Exam date and time: 01/31/2023 9:33 AM Age: 77 years old Clinical indication: Injury or trauma; Fall; Sprain or strain; Ankle; Right; Additional info: Increased pain TECHNIQUE: Imaging protocol: Radiologic exam of the right ankle. Views: 3 or more views. COMPARISON: [place] [id number] 01/30/2023 3:57 PM FINDINGS: Bones/joints: Normal. Soft tissues: Normal. XR/XR ankle RT min 3V* [id number] IMPRESSION: No acute findings.
--- NOTE | 2023-01-31 10:46 | PC.SOCIAL ---
IMM Update pg 2 of IMM updated and reviewed w/ patient. Copy provided and Copy dated, initialed and placed in chart.
--- NOTE | 2023-01-31 10:49 | PM.PN ---
Subjective Subjective: Patient is complaining of foot pain however no active signs of vascular compromise Requested ankle x-ray Son at the bedside Patient is not sure whether she will offer coronary angiogram or vascular intervention for right leg Arterial duplex joints SHIRLEY 0.4 She was told about the risk of contrast-induced nephropathy which might worsen her chronic kidney disease to the point she might need temporary gases versus long-term In the past she has been told that she will need CABG she does not want to go for any kind of surgical invention for now, she would like to be thinking discussed with her son before making her final decision She required Levophed at 2 mics for couple of hours that was turned off in the ICU currently stable Vitals/I&O/Wt Last Vital Signs Temp 97.7 F 01/30/23 14:00 Pulse 83 01/31/23 10:09 Resp 18 01/31/23 10:09 BP 130/53 01/31/23 06:45 Pulse Ox 95 01/31/23 10:09 O2 Del Method Nasal Cannula 01/31/23 10:09 O2 Flow Rate 2 01/31/23 10:09 01/30/23 01/31/23 01/31/23 22:59 06:59 14:59 Intake Total 1300 / 1420 Output Total 1000 / 1000 Balance 1300 / 1420 -1000 / 420 Physical Exam Narrative: Awake and alert Euvolemic Currently blood pressure stable Hemodynamic stable GCS 15 abdomen soft S1, S2 Data 01/31/23 02:09 01/31/23 02:09 Micro: Microbiology 01/30/23 06:05 Urine Culture - Preliminary Urine,Clean Catch Gram Negative Rods A&P Assessment and plan (1) NSTEMI (non-ST elevated myocardial infarction): (2) Hip pain: (3) Fall: (4) Dehydration: (5) Peripheral arterial disease: (6) Retained ureteral stent: Plan UTI patient has history of ESBL we will change antibiotics to meropenem NSTEMI currently on therapeutic Lovenox In the past she has been recommended CABG patient does not want to go for agreeable for medical management for now, she would like to rethink and discussed with her son Hypotension related to multiple antihypertensives given yesterday currently doing well, No signs of cardiogenic shock or septic shock Holding antihypertensive for now SHIRLEY 0.4 right leg No active signs of vascular compromise no signs of ischemic limb no cyanosis of toes temperature warm to touch We will request ankle x-ray as well Patient has a history of femoral-popliteal bypass which was roughly done a decade ago avascular necrosis recent fall right hip joint Patient has prosthesis, no acute fracture Chronic kidney disease creatinine seems to be around baseline Counseling done regarding risk factors for contrast-induced nephropathy Cardiac diet COPD, currently doing well on 2 L of oxygen Patient is full code Attestations Medical Necessity Statement*: transferred out of ICU Diagnoses NSTEMI (non-ST elevated myocardial infarction) I21.4 Hip pain M25.559 Fall W19.XXXA Dehydration E86.0 Peripheral arterial disease I73.9 Retained ureteral stent Z96.0
[2023-01-31] MEDS: oxyCODONE-APAP 5-325 mg Tablet 1 TAB PO (11:19)
[2023-01-31] MEDS: meropenem 500 MG in sodium chloride 0.9% (plus) 50 ML 100 MG IV ×2 (11:20→23:27)
[2023-01-31] MEDS: potassium chloride ER 20 mEq Tablet 40 MEQ PO (11:20)
--- NOTE | 2023-01-31 17:53 | PC.NURSE ---
no void noted this shift, bladder scan showed around 300, dr. Loya notified, gave order for straight cath, patient refused
[2023-01-31] MEDS: atorvastatin 40 mg Tablet PO (18:27)
[2023-02-01] VITALS (17 sets, daily range): BP systolic 113–153; BP diastolic 48–69; PULSE 79–92; RESP 14–22; TEMP 36.7; O2SAT 93–100
[2023-02-01 03:24] LABS: Blood Urea Nitrogen 39 mg/dL (8-23); Calcium 9.1 mg/dL (8.5-10.5); Carbon Dioxide 19 mmol/L (22-29); Chloride 104 mmol/L (98-107); Glucose 97 mg/dL (65-115); Osmolality Calculated 291 mOsm/kg (285-295); Sodium 136 mmol/L (136-145)
[2023-02-01 03:27] LABS: Anion Gap 16.7 (5-19); Potassium 3.7 mmol/L (3.5-5.1)
[2023-02-01] MEDS: oxyCODONE-APAP 5-325 mg Tablet 1 TAB PO (06:46)
[2023-02-01] MEDS: clopidogrel 75 mg Tablet PO (06:47)
[2023-02-01] MEDS: aspirin 81 mg EC Tablet PO (06:47)
[2023-02-01] MEDS: sennosides-docusate Tablet 1 TAB PO (07:52)
[2023-02-01] MEDS: pantoprazole DR 40 mg Tablet PO (07:52)
--- NOTE | 2023-02-01 09:25 | PM.DCS ---
Discharge Providers Date of Admission: 01/28/23 20:23 Date of Discharge: February 01, 2023 Attending Provider at Admission: Camelia Moore MD Attending Provider at Discharge: Wendy Loya MD Primary Care Provider: Catalino Sanders MD Diagnoses at Discharge Discharge Diagnosis (1) NSTEMI (non-ST elevated myocardial infarction): Status: Acute (2) Hip pain: Status: Acute (3) Fall: Status: Acute (4) Dehydration: Status: Acute (5) Peripheral arterial disease: Status: Acute (6) Retained ureteral stent: Status: Acute Reason for Visit Reason for Visit: RIGHT RIB PAIN S/P FALL Hospital Course Hospital Course Female with history of reduced ejection fraction EF 35 to 40%, recurrent admissions related to low blood pressure and CHF exacerbation, she has had multiple admissions when she was treated for cardiogenic shock and NSTEMI, she has seen Dr. Lozano in the past (kindly review his notes for further details), in short, patient went for coronary angiogram in the past & procedure was aborted because of complicated vascular anatomy, Dr. 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 They do not want any surgical intervention. Because of low blood pressure I have reduced the dose of Lasix to 10 mg instead of 20 mg, I have discontinued lisinopril because of chronic kidney disease, added isosorbide dinitrate. Continue aspirin, Plavix and atorvastatin She is high risk for readmissions, goals of care for now is full code since patient does not wish to pursue any revascularization or coronary angiogram because of complicated vascular anatomy and chronic kidney disease, goals of care should be rediscussed in case she gets readmitted Urine culture showing gram-negative lynn however she has no active symptoms of UTI, previous urine culture showed ESBL, she has not shown any signs of septic shock, despite febrile events during this hospitalization she was kept on IV antibiotics Request PICC line placement & ertapenem 1 g for 14 days Physical Exam Narrative: Alert GCS 15 Currently on 2 L Euvolemic Abdomen soft Son at the bedside Pleasant and cooperative S1, S2 GCS 15 Discharge Data Studies Completed and Pending Completed Studies During Hospitalization Category Date Time Status CT cervical spin wo con* [id number] Stat Cat Scan 01/28/23 15:[address] [place] [id number] Stat Cat Scan 01/28/23 15:[address] head wo con* [id number] Stat Cat Scan 01/28/23 15:24 Completed XR ankle RT min 3V* [id number] Routine Exams 01/31/23 10:19 Completed XR chest 1V portable [id number] Stat Exams 01/28/23 14:39 Completed XR femur RT min 2V* [id number] Stat Exams 01/28/23 14:39 Completed NM pul vent and perfus* [id number] Routine Nuc Med 01/30/23 07:00 Completed US arterial duplex lower extremity RT [CV arterial Ultrasound 01/30/23 14:50 [place] [id number]] Routine Pending at discharge Category Date Time Status SARS Covid-2 Antigen Routine Lab 02/01/23 09:07 Uncollected Urine Culture Stat Lab 01/30/23 06:05 Results Radiology Impressions Chest X-Ray 01/28/23 14:39 IMPRESSION: 1. Lungs are clear. 2. Left coracoid process fracture is new since 01/22/2023. Femur X-Ray 01/28/23 14:39 IMPRESSION: 1. Intact well-aligned right hip prosthesis. No fracture. 2. 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 No definite subchondral collapse. Subchondral cortices are suboptimally visualized due to osteopenia. Cervical Spine CT 01/28/23 15:24 IMPRESSION: There is no evidence for fracture or facet dislocation. Chest/Abdomen/Pelvis CT 01/28/23 15:24 IMPRESSION: 1. No acute abnormality demonstrated. 2. Changes of centrilobular emphysema demonstrated. No consolidative pulmonary infiltrates are noted. 3. There is no significant change from the prior CT chest examination dated 07/12/2021. IMPRESSION: 1. Metallic artifact from hip prosthesis limits visualization of the lower pelvis. 2. Changes of avascular necrosis are seen in the left femoral head. There is moderate osteoarthritis associated. 3. Right ureteral stent noted. The stent is appropriately positioned. 4. Cholelithiasis, without changes of cholecystitis. 5. No acute abnormality demonstrated in the abdomen and pelvis. Head CT 01/28/23 15:24 IMPRESSION: There are no acute concerning abnormalities. Pulmonary Perfusion Imaging 01/30/23 07:00 IMPRESSION: 1. Low probability for pulmonary embolus. Duplex Scan Lower Extremity Artery 01/30/23 14:50 IMPRESSION: 1. No focal stenosis or occlusion. 2. Diffuse abnormal monophasic arterial waveforms throughout the right lower extremity suggesting significant runoff disease, along with SHIRLEY of 0.4 which is also suggestive of significant or severe runoff disease. Ankle X-Ray 01/31/23 10:19 IMPRESSION: No acute findings. Laboratory Results WBC 7.8 10^3/uL (4.0-10.0) 01/31/23 02:09 RBC 3.02 10^6/uL (4.1-5.3) L 01/31/23 02:09 Hgb 9.2 g/dL (11.5-15.3) L 01/31/23 02:09 Hct 28.6 % (37.0-47.0) L 01/31/23 02:09 MCV 94.7 fl (81-99) 01/31/23 02:09 MCH 30.5 pg (28.0-34.0) 01/31/23 02:09 MCHC 32.2 g/dL (30.0-36.0) 01/31/23 02:09 RDW 14.8 % (12.1-15.1) 01/31/23 02:09 Plt Count 154 10^3/cmm (130-400) 01/31/23 02:09 MPV 10.8 fL (7.4-10.4) H 01/31/23 02:09 Neut % (Auto) 82.4 % 01/31/23 02:09 Lymph % (Auto) 8.1 % 01/31/23 02:09 [place] % (Auto) 8.4 % 01/31/23 02:09 Eos % (Auto) 0.0 % 01/31/23 02:09 Baso % (Auto) 0.3 % 01/31/23 02:09 Neut # (Auto) 6.39 10^3/uL (1.8-7.7) 01/31/23 02:09 Lymph # (Auto) 0.6 10^3/uL (0.8-4.8) L 01/31/23 02:09 [place] # (Auto) 0.7 10^3/uL (0.2-0.9) 01/31/23 02:09 Eos # (Auto) 0.0 10^3/uL (0.0-0.8) 01/31/23 02:09 Baso # (Auto) 0.0 10^3/uL (0.0-0.1) 01/31/23 02:09 Nucleated RBC % (auto) 0 % 01/31/23 02:09 Nucleated RBCs # 0.0 /100WBC 01/31/23 02:09 D-Dimer 4.87 ug/mIFEU (0-0.59) H 01/29/23 07:25 Specimen Type Arterial 01/28/23 15:13 Sample Site Radial, left 01/28/23 15:13 ABG pH 7.47 (7.35-7.45) H 01/28/23 15:13 ABG pCO2 25.7 mmHg (35-45) L 01/28/23 15:13 ABG pO2 59.9 mmHg (80.0-100.0) L 01/28/23 15:13 ABG HCO3 18.5 mmol/L (22-26) L 01/28/23 15:13 ABG Base Excess -3.8 mmol/L (-2.0-2.0) L 01/28/23 15:13 Roby Test Pos 01/28/23 15:13 Hematocrit 39.5 % (37-47) 01/28/23 15:13 O2 Delivery Device Room air 01/28/23 15:13 FiO2 21.0 % 01/28/23 15:13 Route Process Administrator ID Cak 01/28/23 15:13 Sodium 136 mmol/L (136-145) 02/01/23 02:29 Potassium 3.7 mmol/L (3.5-5.1) 02/01/23 02:29 Chloride 104 mmol/L (98-107) 02/01/23 02:29 Carbon Dioxide 19 mmol/L (22-29) L 02/01/23 02:29 Anion Gap 16.7 (5-19) 02/01/23 02:29 BUN 39 mg/dL (8-23) H 02/01/23 02:29 Creatinine 1.2 mg/dL (0.5-0.9) H 02/01/23 02:29 GFR Calculation Not Reportable 02/01/23 02:29 Glucose 97 mg/dL (65-115) 02/01/23 02:29 POC Glucose 101 mg/dL (70-110) 01/30/23 12:12 Calculated Osmolality 291 mOsm/kg (285-295) 02/01/23 02:29 Calcium 9.1 mg/dL (8.5-10.5) 02/01/23 02:29 Total Bilirubin 0.6 mg/dL (0.15-1.2) 01/29/23 06:06 AST 28 U/L (0-32) 01/29/23 06:06 ALT 11 U/L (0-33) 01/29/23 06:06 Alkaline Phosphatase 100 U/L (35-105) 01/29/23 06:06 Troponin T Baseline 140 ng/L (0-10) H* 01/28/23 15:38 Troponin T 120 Minute 121.7 ng/L (0-10) H 01/28/23 17:09 Delta Troponin T -18.3 ABS# (0-10) L 01/28/23 17:09 Troponin T Hi Sens 6Hr 155.9 ng/L (0-10) H 01/28/23 22:51 Troponin T Hi Sens 6Hr Delta 15.9 ng/L (0-12) H* 01/28/23 22:51 NT-Pro-B Natriuret Pep 73495 pg/mL (0-450) H 01/28/23 15:38 Total Protein 7.2 g/dL (6.6-8.7) 01/29/23 06:06 Albumin 4.0 g/dL (3.5-5.2) 01/29/23 06:06 Globulin 3.2 g/dL (1.3-4.6) 01/29/23 06:06 TSH 2.79 uIU/mL (0.27-4.20) 01/28/23 15:38 Urine Color Yellow (Yellow) 01/30/23 06:05 Urine Appearance Cloudy (CLEAR) A 01/30/23 06:05 Urine pH 5 (5-7) 01/30/23 06:05 Ur Specific [place] 1.015 (1.005-1.030) 01/30/23 06:05 Urine Protein Neg (Negative) 01/30/23 06:05 Urine Glucose (UA) Norm (Normal) 01/30/23 06:05 Urine Ketones 1+ (Negative) H 01/30/23 06:05 Urine Blood 3+ (Negative) H 01/30/23 06:05 Urine Nitrate Positive (Negative) H 01/30/23 06:05 Urine Bilirubin Neg (Negative) 01/30/23 06:05 Urine Urobilinogen Norm mg/dL (Negative) 01/30/23 06:05 Ur Leukocyte Esterase 2+ (Negative) H 01/30/23 06:05 Urine RBC 5-10 /hpf (0-2) H 01/30/23 06:05 Urine WBC Too numerous to cnt /hpf (0-5) H 01/30/23 06:05 Ur Squamous Epith Cells 0-4 /hpf (0-5) H 01/30/23 06:05 Amorphous Sediment Not Reportable 01/30/23 06:05 Urine Bacteria 3+ /hpf (NONE) H 01/30/23 06:05 Vitals Last Vital Signs Temp 98.1 F 02/01/23 01:00 Pulse 80 02/01/23 09:00 Resp 21 H 02/01/23 08:00 BP 114/58 02/01/23 09:00 Pulse Ox 95 02/01/23 09:00 O2 Del Method Nasal Cannula 02/01/23 06:00 O2 Flow Rate 2 02/01/23 06:00 Discharge Plan Discharge Patient Disposition: Xfer SNF Condition: Stable Prescriptions: New isosorbide dinitrate 10 mg tablet 10 mg PO BID Qty: 60 0RF Rx Instructions: allow nitrate-free interval of 12-14 hrs per 24-hr period ertapenem [Invanz] 1 gram recon soln 1 g IV DAILY 14 Days Qty: 14 0RF Continued nitroglycerin 0.4 mg tablet, sublingual 0.4 mg sublingual Q5M PRN (Reason: chest pain) Qty: 25 3RF Rx Instructions: do not exceed 3 doses per episode fluticasone propionate [Flonase Allergy Relief] 50 mcg/actuation spray,suspension 1 spray intranasal DAILY@07 Rx Instructions: administer into each nostril ipratropium bromide 21 mcg (0.03 %) spray,non-aerosol 2 spray INTRANASAL TID PRN (Reason: drainage) multivitamin Tablet 1 tab PO DAILY@ ascorbic acid (vitamin C) [Vitamin C] 500 mg Tablet 1,000 mg PO BID@ methenamine hippurate 1 gram tablet 1 g PO BID@ Rx Instructions: Take 1000 mg of Vitamin C with each dose of Methenamine atorvastatin 40 mg tablet 40 mg PO BEDTIME@ Qty: 30 0RF clopidogrel 75 mg tablet 75 mg PO DAILY@ Qty: 30 0RF aspirin 81 mg Tablet,Delayed Release (Dr/Ec) 81 mg PO DAILY@ Qty: 30 0RF metoprolol tartrate 50 mg tablet 50 mg PO BID@ Qty: 60 0RF Changed Lasix 40 mg tablet 20 mg PO DAILY 30 Days Qty: 30 1RF Rx Instructions: *medication has been on hold for 2 weeks as of 01/23/23 per pt* Klor-Con 20 mEq packet 10 meq PO DAILY 30 Days Qty: 30 0RF Rx Instructions: *medication has been on hold for 2 weeks as of 01/23/23 per pt* Discontinued lisinopril 5 mg tablet 5 mg PO DAILY Rx Instructions: *medication has been on hold for 2 weeks as of 01/23/23 per pt* Discharge Orders: Discharge Order (Routine); Ordered 02/01/23 Ordered By: Wendy Loya Referrals: [facility] [Outside] Catalino Sanders MD [Primary Care Provider] - Discharge Diet: Cardiac Discharge Activity: Increase activity as tolerated Patient Instructions: Opioid Safety Discharge Attestations Time Spent in Discharge Care*: greater than 30 min Quality Metrics Clinical Quality Measures [ No reported AMI, CVA or VTE this stay] Coding Level of Care Code Acute Code for Chg Fwd Diagnoses NSTEMI (non-ST elevated myocardial infarction) I21.4 Hip pain M25.559 Fall W19.XXXA Dehydration E86.0 Peripheral arterial disease I73.9 Retained ureteral stent Z96.0
[2023-02-01] MEDS: ertapenem 1,000 MG in sodium chloride 0.9% (plus) 100 ML 200 MG IV (10:33)
[2023-02-01] MEDS: enoxaparin 60 mg/0.6 mL Syringe 50 MG SUBCUT (10:33)
--- NOTE | 2023-02-01 13:13 | XR_ITS ---
WS: [id number] Portable AP upright chest, 02/01/2023 Clinical Data: Post PICC insertion Comparison: Portable chest, 01/28/2023 Findings: A right PICC line has been inserted. It ends in the superior vena cava. No pneumothorax is seen XR/XR chest 1V portable [id number] Impression: Satisfactory insertion of right PICC line.
--- NOTE | 2023-02-01 13:15 | PC.NURSE ---
Double lumen PICC placed to right basilic vein without difficulty. Pt to be discharged to shelter with 2 weeks IV antibiotics. Mid-arm circumference measured 10 cm from right AC 23 cm. Trimmed cath length 34 cm with 1 cm external length noted. EBL < 10 mL. CXR confirms cath tip in SVC, in good position to use per radiologist. Dressing due to be changed 02/02/23. Report given to bedside nurse, Malgorzata.
[2023-02-01 14:51] LABS: SARS Covid-2 Antigen negative (Negative)
--- NOTE | 2023-02-01 15:31 | PC.NURSE ---
Pt sent to [facility] via wheelchair on 2L NC. All belongings with patient and son aware of transfer. Right arm PICC line in place.
== END 2023-02-01 15:25 | disposition skilled nursing facility (03) | DRG 280 ==
LOC: ER 20:20 → MEDSURG 20:34 → ICU 01-30 14:42
PROVIDERS: Admitting Provider Student in an Organized Health Care Education/Training Program; Emergency Provider Emergency Medicine; PCP Family Medicine; Visit Provider Internal Medicine
DX: I21.4 Non-ST elevation (NSTEMI) myocardial infarction (principal); I50.23 Acute on chronic systolic (congestive) heart failure; I13.0 Hypertensive heart and chronic kidney disease with heart failure and stage 1 through stage 4 chronic kidney disease, or unspecified chronic kidney disease; Z16.12 Extended spectrum beta lactamase (ESBL) resistance; I42.9 Cardiomyopathy, unspecified; N39.0 Urinary tract infection, site not specified; M87.9 Osteonecrosis, unspecified; W19.XXXA Unspecified fall, initial encounter; N18.9 Chronic kidney disease, unspecified; I25.2 Old myocardial infarction; I73.9 Peripheral vascular disease, unspecified; Z95.820 Peripheral vascular angioplasty status with implants and grafts; B96.20 Unspecified Escherichia coli [E. coli] as the cause of diseases classified elsewhere; Z79.02 Long term (current) use of antithrombotics/antiplatelets; Z79.82 Long term (current) use of aspirin; I25.10 Atherosclerotic heart disease of native coronary artery without angina pectoris; J43.9 Emphysema, unspecified; E78.5 Hyperlipidemia, unspecified; Z87.440 Personal history of urinary (tract) infections; E86.0 Dehydration; I95.2 Hypotension due to drugs; T46.5X5A Adverse effect of other antihypertensive drugs, initial encounter; F17.210 Nicotine dependence, cigarettes, uncomplicated; Z96.641 Presence of right artificial hip joint
CPT/HCPCS: 36415; 36416; 36569; 36600; 70450; 71045; 71250; 72125; 73552; 73610; 74176; 78014; 80048; 80053; 81001; 82803; 82962; 83880; 84443; 84484; 85025; 85378; 87077; 87086; 87186; 87426; 93005; 93926; 94640; 96372; 96374; 96375; 96376; 97110; 97116; 97162; 97165; 97530; 97535; 99285; A9270; A9540; A9567; J0696; J1100; J1335; J1650; J1940; J2185; J3010; J7030; J7040; J7060

== ENCOUNTER 2023-02-03 16:55 | Inpatient (IN) | payer MEDICARE, MEDICAID, SELFPAY ==
[2023-02-03] VITALS (29 sets, daily range): BP systolic 100–141; BP diastolic 43–66; PULSE 93–112; RESP 14–27; TEMP 36.9–37.2; O2SAT 92–97; BMI 24.5
--- NOTE | 2023-02-03 17:34 | XRR_ITS ---
PROCEDURE INFORMATION: Exam: XR Chest Exam date and time: 02/03/2023 5:42 PM Age: 77 years old Clinical indication: Other: AMS; Additional info: Altered mental status TECHNIQUE: Imaging protocol: Radiologic exam of the chest. Views: 1 view. Other technique: The patient is rotated to the right. COMPARISON: CR XR chest 1V portable [id number] 02/01/2023 1:02 PM FINDINGS: Tubes, catheters and devices: Right upper extremity PICC is stable in position with the tip at the cavoatrial junction. Lungs: Lungs are clear bilaterally. Pleural spaces: No pleural effusion. No pneumothorax. Heart/Mediastinum: Stable moderate enlargement of the cardiac silhouette. Mediastinal contours are unremarkable. Vasculature: Stable vascular calcifications in the aorta. Stable tortuosity of the aorta. Bones/joints: Bones are diffusely osteopenic. Multilevel degenerative changes of varying severity in the visualized spine. Patient has had a previous left rotator cuff repair. Osseous findings are stable. XR/XR chest 1V portable [id number] IMPRESSION: 1. No acute cardiopulmonary process. 2. Incidental/nonacute findings are listed in the report.
--- NOTE | 2023-02-03 17:37 | W.ED.AMS ---
HPI - Altered Mental Status General: Chief Complaint: Altered Mental Status Stated Complaint: sepsis Time Seen by Provider: 02/03/23 17:24 History of Present Illness: This 77-year-old resident [facility] a jail was brought in for evaluation of altered mental status. She has only been at the jail for a few days. Here in the ER, patient is unable to provide any useful history. She complains that both lower extremities from the level of the hip down to the feet hurt. Besides a small area of erythema on the dorsum of the right foot, there is no sign of acute injury. There is no deformity noted. Review of Systems General: Reports: ROS unobtainable due to mental status PFSH ED PFSH: Medical History (Updated 02/03/23 @ 22:29 by Luz Carmona MD) Acute exacerbation of chronic obstructive pulmonary disease Acute systolic CHF (congestive heart failure) Bacteriuria CAD (coronary artery disease) Cardiogenic shock Cardiomyopathy COPD (chronic obstructive pulmonary disease) Cystitis Dehydration Dyslipidemia Elevated troponin Elevated troponin I level Emphysema lung Essential hypertension Extrinsic ureteral obstruction Fall Heart failure Heart failure, systolic, with acute decompensation Hip pain Hypoxia Lactic acidosis NSTEMI (non-ST elevated myocardial infarction) Peripheral arterial disease Pyuria Respiratory failure with hypoxia and hypercapnia Retained ureteral stent Syncope and collapse Systolic CHF Tobacco abuse Urinary incontinence UTI (urinary tract infection) Surgical History H/O arthroscopic knee surgery bilateral H/O oral surgery H/O shoulder surgery H/O total hip arthroplasty right H/O: H/O: hysterectomy History of colon surgery Family History Mother , at age 79 Hypertension Peripheral artery disease Diabetes Father , at age 47 Cancer pancreatic and lung Social History Smoking and tobacco status: current some day smoker (quitting) cigarettes Packs smoked per day: 0.5 Years cigarettes smoked: 60 [ Other cigarette details: Hx of 1 PPD x 50 Years] Second hand smoke exposure: Yes Smoking risk assessment/counseling performed?: Yes Alcohol intake: never Substance/Drug Use: never Lives independently: Yes Housing: Apartment Marital status: Legally Current occupational status: retired and disabled Do you think of yourself as: Straight/Heterosexual Current gender identity: Female Physical Exam Narrative: Laying in bed with mouth open. No acute respiratory distress. Unable to provide any history. However, she knows who the president is. Const: EXAM LIMITATIONS: altered mental status GENERAL APPEARANCE: lethargic ORIENTATION/CONSCIOUSNESS: Yes lethargic HENMT: COMMON NORMALS: normocephalic, atraumatic and Normal external nose present HEAD & SCALP: normocephalic and atraumatic NOSE: Normal external nose present Eye: GENERAL EYE: appearance normal, both eyes and all related structures Chest: COMMONS NORMALS: normal inspection of the chest and normal palpation of entire chest wall Resp: COMMON NORMALS: normal respiratory effort and No use of accessory muscles OTHER: Diminished breath sounds at the bases. Cardio: COMMON NORMALS: regular rate, regular rhythm and No murmurs present (Cardio) RATE: regular rate RHYTHM: regular rhythm GI: COMMON NORMALS: Normal to inspection, nondistended, normoactive bowel sounds present Extremity: OTHER: No pedal edema Neuro: SENSORIUM/ORIENTATION: Yes lethargic and Yes somnolent Course Reevaluation(s): Reevaluation #1: Patient unable to provide any useful history and history provided by EMS was very scanty. We called the jail to speak to one of the nurses taking care of patient so we can get more information. Front End Engineer stated that there was no nurse on the floor at the time to talk to us. Time: 19:57 Reevaluation #2: Was eventually able to speak with nurse taking care of patient. She noted that patient was transferred to their facility 2 days ago from this hospital with elevated troponin. She also has a UTI for which a PICC line was inserted in the right upper extremity. As of yesterday, patient was Aand O x4 and was bossing his son around . Today, she was found to be less responsive and unable to communicate to a reasonable extent. She has been very lethargic. She has a PICC line in her right upper extremity through which she receives IV Invanz for UTI. Time: 20:09 Consultations: Consultation #1: Case discussed with Dr. Ozuna who accepted patient for admission. Vital Signs: Vital signs: Vital Signs Temperature 98.9 F 02/03/23 17:06 Pulse Rate 103 H 02/03/23 18:55 Respiratory Rate 18 02/03/23 18:40 Blood Pressure 140/61 02/03/23 18:55 Pulse Oximetry 94 02/03/23 18:55 Oxygen Delivery Me thod Room Air 02/03/23 17:06 MDM - Altered Mental Status Medical Decision Making Medical decision making: History as above. Given that patient has altered mental status with no clear explanation at this point, she will be admitted for further evaluation and management. Case discussed with Dr. Ozuna who accepted patient for admission. Lab Data 02/03/23 17:42 02/03/23 17:42 Radiology Impressions Chest X-Ray 02/03/23 17:34 IMPRESSION: 1. No acute cardiopulmonary process. 2. Incidental/nonacute findings are listed in the report. Head CT 02/03/23 20:10 IMPRESSION: 1. No acute abnormality of the brain. 2. Stable moderate atrophy of the brain parenchyma. 3. Stable mild chronic white matter microangiopathic change. 4. Incidental/nonacute findings are listed in the report. Laboratory Results WBC 6.3 10^3/uL (4.0-10.0) 02/03/23 17:42 RBC 3.42 10^6/uL (4.1-5.3) L 02/03/23 17:42 Hgb 10.2 g/dL (11.5-15.3) L 02/03/23 17:42 Hct 32.1 % (37.0-47.0) L 02/03/23 17:42 MCV 93.9 fl (81-99) 02/03/23 17:42 MCH 29.8 pg (28.0-34.0) 02/03/23 17:42 MCHC 31.8 g/dL (30.0-36.0) 02/03/23 17:42 RDW 14.6 % (12.1-15.1) 02/03/23 17:42 Plt Count 251 10^3/cmm (130-400) 02/03/23 17:42 MPV 9.6 fL (7.4-10.4) 02/03/23 17:42 Neut % (Auto) 67.1 % 02/03/23 17:42 Lymph % (Auto) 20.0 % 02/03/23 17:42 Mcculloch % (Auto) 9.4 % 02/03/23 17:42 Eos % (Auto) 1.1 % 02/03/23 17:42 Baso % (Auto) 0.6 % 02/03/23 17:42 Neut # (Auto) 4.20 10^3/uL (1.8-7.7) 02/03/23 17:42 Lymph # (Auto) 1.3 10^3/uL (0.8-4.8) 02/03/23 17:42 M[place]ulloch # (Auto) 0.6 10^3/uL (0.2-0.9) 02/03/23 17:42 Eos # (Auto) 0.1 10^3/uL (0.0-0.8) 02/03/23 17:42 Baso # (Auto) 0.0 10^3/uL (0.0-0.1) 02/03/23 17:42 Nucleated RBC % (auto) 0 % 02/03/23 17: Nucleated RBCs # 0.0 /100WBC 02/03/23 17:42 PT 13.50 SECONDS (12.1-14.9) 02/03/23 17:42 INR 1.00 (0.8-1.2) 02/03/23 17:42 Sodium 140 mmol/L (136-145) 02/03/23 17:42 Potassium 3.4 mmol/L (3.5-5.1) L 02/03/23 17:42 Chloride 103 mmol/L (98-107) 02/03/23 17:42 Carbon Dioxide 23 mmol/L (22-29) 02/03/23 17:42 Anion Gap 17.4 (5-19) 02/03/23 17:42 BUN 17 mg/dL (8-23) 02/03/23 17:42 Creatinine 0.8 mg/dL (0.5-0.9) 02/03/23 17:42 GFR Calculation Not Reportable 02/03/23 17:42 Glucose 88 mg/dL (65-115) 02/03/23 17:42 POC Glucose 108 mg/dL (70-110) 02/03/23 17:55 Calculated Osmolality 291 mOsm/kg (285-295) 02/03/23 17:42 Lactic Acid 0.8 mmol/L (0.5-2.2) 02/03/23 17:42 Calcium 8.8 mg/dL (8.5-10.5) 02/03/23 17:42 Total Bilirubin 0.4 mg/dL (0.15-1.2) 02/03/23 17:42 AST 18 U/L (0-32) 02/03/23 17:42 ALT 13 U/L (0-33) 02/03/23 17:42 Alkaline Phosphatase 108 U/L (35-105) H 02/03/23 17:42 Troponin T Gen 5 ng/L 124 ng/L (0-10) H* 02/03/23 17:42 Total Protein 6.3 g/dL (6.6-8.7) L 02/03/23 17:42 Albumin 3.3 g/dL (3.5-5.2) L 02/03/23 17:42 Globulin 3.0 g/dL (1.3-4.6) 02/03/23 17:42 Urine Color Yellow (Yellow) 02/03/23 18:54 Urine Appearance Hazy (CLEAR) A 02/03/23 18:54 Urine pH 6 (5-7) 02/03/23 18:54 Ur Specific [place] 1.030 (1.005-1.030) 02/03/23 18:54 Urine Protein 1+ (Negative) H 02/03/23 18:54 Urine Glucose (UA) Trace (Normal) H 02/03/23 18:54 Urine Ketones Negative (Negative) 02/03/23 18:54 Urine Blood Neg (Negative) 02/03/23 18:54 Urine Nitrate Positive (Negative) H 02/03/23 18:54 Urine Bilirubin Neg (Negative) 02/03/23 18:54 Urine Urobilinogen Norm mg/dL (Negative) 02/03/23 18:54 Ur Leukocyte Esterase 2+ (Negative) H 02/03/23 18:54 Urine RBC 0-4 /hpf (0-2) H 02/03/23 18:54 Urine WBC 10-15 /hpf (0-5) H 02/03/23 18:54 Ur Squamous Epith Cells 15-25 /hpf (0-5) H 02/03/23 18:54 Amorphous Sediment Not Reportable 02/03/23 18:54 Urine Bacteria 4+ /hpf (NONE) H 02/03/23 18:54 EKG Data EKG 1: Interpretation: Normal axis, rate of 99, left ventricular hypertrophy, normal intervals, no STEMI. Discharge Plan Discharge Patient Disposition: Admitted As Inpatient Clinical Impression: Altered mental status, Elevated troponin Condition: Stable Coding Level of Care Code ED Compound Machine Operator for Isi Calhoun
[2023-02-03 17:51] LABS: Basophils % 0.6 %; Eosinophils # 0.1 10^3/uL (0.0-0.8); Eosinophils % 1.1 %; Hematocrit 32.1 % (37.0-47.0); Hemoglobin 10.2 g/dL (11.5-15.3); Lymphocytes # 1.3 10^3/uL (0.8-4.8); Mean Corpuscular HGB Conc 31.8 g/dL (30.0-36.0); Mean Corpuscular Hemoglobin 29.8 pg (28.0-34.0); Mean Corpuscular Volume 93.9 fl (81-99); Mean Platelet Volume 9.6 fL (7.4-10.4); Monocytes # 0.6 10^3/uL (0.2-0.9); Monocytes % 9.4 %; Neutrophils % 67.1 %; Nucleated Red Blood Cells % 0 %; Platelet Count 251 10^3/cmm (130-400); Red Blood Count 3.42 10^6/uL (4.1-5.3); Red Cell Distribution Width 14.6 % (12.1-15.1); White Blood Count 6.3 10^3/uL (4.0-10.0)
[2023-02-03 17:57] LABS: Glucose Point of Care 108 mg/dL (70-110)
[2023-02-03 18:14] LABS: Alanine Aminotransferase 13 U/L (0-33); Albumin Level 3.3 g/dL (3.5-5.2); Alkaline Phosphatase 108 U/L (35-105); Anion Gap 17.4 (5-19); Aspartate Amino Transferase 18 U/L (0-32); Blood Urea Nitrogen 17 mg/dL (8-23); Calcium 8.8 mg/dL (8.5-10.5); Carbon Dioxide 23 mmol/L (22-29); Chloride 103 mmol/L (98-107); Glucose 88 mg/dL (65-115); Osmolality Calculated 291 mOsm/kg (285-295); Potassium 3.4 mmol/L (3.5-5.1); Sodium 140 mmol/L (136-145); Total Bilirubin 0.4 mg/dL (0.15-1.2); Total Protein 6.3 g/dL (6.6-8.7)
--- NOTE | 2023-02-03 18:18 | ECG_ITS ---
[facility] Test Date: 2023-02-03 Pat Name: Denia Gerardo Department: Room: Gender: Female Political Advisor: : 1945 Requested By: Luz Eldridge Order Number: [id number] Cathleen MD: Spencer Maciel M.D. Measurements Intervals Nicholson Rate: 99 P: -5 NM: 160 QRS: 51 QRSD: 101 T: 34 QT: 366 QTc: 472 Interpretive Statements SINUS RHYTHM POSSIBLE LEFT VENTRICULAR HYPERTROPHY [VOLTAGE CRITERIA PLUS LAE OR QRS WIDENING] POSSIBLE INFERIOR MYOCARDIAL INFARCTION , PROBABLY OLD [30 ms Q WAVE IN II/aVF] Compared to ECG 01/28/2023 20:02:09 Sinus tachycardia no longer present Myocardial infarct finding still present Electronically Signed On 02-04-2023 6:52:31 CDT by Spencer Maciel M.D. [id number]
[2023-02-03 19:51] LABS: Add Urine Microscopic? YES; Bilirubin Urine Neg (Negative); Blood Urine Neg (Negative); Glucose Urine UA Trace (Normal); Ketones Urine Negative (Negative); Leukocyte Esterase Urine 2+ (Negative); Nitrate Urine Positive (Negative); Protein Urine 1+ (Negative); Urine Appearance Hazy (CLEAR); Urine Color Yellow (Yellow); Urobilinogen Urine Norm (Negative); pH Urine 6 (5-7)
[2023-02-03 19:53] LABS: Bacteria Urine 4+ /hpf; RBC Urine 0-4 /hpf (0-2); Squamous Epithelial Cell Urine 15-25 /hpf (0-5)
--- NOTE | 2023-02-03 20:10 | CTR_ITS ---
PROCEDURE INFORMATION: Exam: CT Head Without Contrast Exam date and time: 02/03/2023 8:35 PM Age: 77 years old Clinical indication: Altered mental status/memory loss TECHNIQUE: Imaging protocol: Computed tomography of the head without contrast. Sagittal and coronal reformatted images were created and reviewed. Radiation optimization: All CT scans at this facility use at least one of these dose optimization techniques: automated exposure control; mA and/or kV adjustment per patient size (includes targeted exams where dose is matched to clinical indication); or iterative reconstruction. REPORTING DATA: Count of CT and Cardiac NM exams in prior 12 months: This patient has received 5 known CTs and 0 known cardiac nuclear medicine studies in the 12 months prior to the current study. COMPARISON: CT head wo con* [id number] 01/28/2023 4:04 PM RADIATION DOSE METRICS: Total DLP (mGy-cm): 1217.18 FINDINGS: Brain: No acute intracranial hemorrhage. No acute infarct. No intra-axial or extra-axial masses. Brizuela-white matter differentiation is preserved. No cerebral edema. No extra-axial fluid collections. No midline shift. No evidence for Chiari 1 malformation. Stable moderate atrophy of the brain parenchyma. Stable mildly decreased attenuation in the deep white matter, consistent with mild chronic microangiopathic change. Cerebral ventricles: No hydrocephalus. Paranasal sinuses: Paranasal sinuses are clear. Mastoid air cells: Mastoid air cells are clear bilaterally. Orbital cavities: Globes and lenses, extraocular muscles, and optic nerves are intact bilaterally. No acute intraorbital abnormality. Bones/joints: No acute fracture. Soft tissues: The extracranial soft tissues are unremarkable. Vasculature: Atherosclerotic changes in the visualized arteries. CT/CT head wo con* [id number] IMPRESSION: 1. No acute abnormality of the brain. 2. Stable moderate atrophy of the brain parenchyma. 3. Stable mild chronic white matter microangiopathic change. 4. Incidental/nonacute findings are listed in the report.
[2023-02-03 20:32] LABS: Lactic Sepsis W/Reflex 0.8 mmol/L (0.5-2.2)
[2023-02-03 21:39] LABS: Troponin T (5th) Once 124 ng/L (0-10)
--- NOTE | 2023-02-03 23:56 | PM.HP ---
Providers/Chief Complaint Admitting Physician: Saima Ozuna MD Primary Care Provider: Catalino Sanders MD Chief Complaint: sepsis History of Present Illness Denia Gerardo is a 77 year old female with history of reduced ejection fraction EF 35 to 40%, recurrent admissions related to low blood pressure and CHF exacerbation, she has had multiple admissions when she was treated for cardiogenic shock and NSTEMI, she has seen Dr. Lozano in the past (kindly review his notes for further details), in short, patient went for coronary angiogram in the past & procedure was aborted because of complicated vascular anatomy, Dr. Lozano was not able to go through left femoral access, CABG was recommended which patient declined she was discharged after being treated medically. Another admission after that she came in after sustaining a fall at home no new fractures she does have chronic avascular necrosis status post arthroplasty she was diagnosed with NSTEMI based on troponin above 140. She also had severe vascular disease of right leg SHIRLEY 0.4. Patient was given the option to go for coronary angiograms and right leg angiogram with son present in the room but at that time it was decided to treat medically for now did not want any surgical intervention. Due to patient's low blood pressure her Lasix dose was reduced to 10 mg instead of 20. Lisinopril was discontinued because of CKD and Imdur was added. She was sent home on aspirin Plavix atorvastatin. Patient's CODE STATUS is full code as of last admission. She was also diagnosed with a UTI with gram-negative rods and previous urine culture showed ESBL. She was kept on IV antibiotics. PICC line was requested and ertapenem was started for 14 days. Patient was sent to the residential. It is reported that yesterday patient was alert oriented x4 and was making her needs known very well. Today however she has been lethargic and has had altered mental status. She is arousable when cued verbally able to tell me her name, the fact that she is in the hospital and the president is Deb. Peers very tired. Appears dehydrated. There has been no fever no pain since yesterday. She has been receiving her ertapenem at the residential. ER physician personally called the residential to obtain information but other than above there are no other symptoms reported at this time. Son provided the history. He is at bedside. ED course: BP 140/61 on arrival, respiratory 18, pulse 103, temperature 98.9, saturating 94% on room air. Chest x-ray shows no acute cardiopulmonary process, CT head negative for acute pathology. WBC 6.3, hemoglobin 10.2, platelet 251, sodium 140, potassium 3.4, creatinine 0.8, lactic acid 0.8, urinalysis positive for nitrates, 2+ leukocyte esterase, 4+ bacteria. Urine culture from previous admission 01/30/2023 shows ESBL E. coli sensitive to imipenem. On previous CT abdomen pelvis on 28 January there is noted a nonobstructing 3 mm calculus noted in left kidney no hydronephrosis. Right ureteral stent noted which is appropriately positioned. Parotitis without changes of cholecystitis. Medications/Allergies Home Medications Medication Instructions Recorded Confirmed Last Taken Type fluticasone propionate 50 1 spray intranasal DAILY@07 07/26/22 02/03/23 02/03/23 History mcg/actuation nasal spray,suspension (Flonase Allergy Relief) nitroglycerin 0.4 mg sublingual 0.4 mg sublingual Q5M PRN chest 10/20/22 02/03/23 Unknown Rx tablet pain #25 tabs ipratropium bromide 21 mcg (0.03 2 spray intranasal TID PRN drainage 01/22/23 02/03/23 Unknown History %) nasal spray ascorbic acid (vitamin C) 500 mg 1,000 mg PO BID@,01/23/23 02/03/23 02/03/23 History tablet (Vitamin C) methenamine hippurate 1 gram tablet 1 g PO BID@07,01/23/23 02/03/23 02/03/23 History multivitamin 1 tab PO DAILY@01/23/23 02/03/23 02/03/23 History aspirin 81 mg tablet,delayed 81 mg PO DAILY@07 #30 tabs 02/01/23 02/03/23 02/03/23 Rx release atorvastatin 40 mg tablet 40 mg PO BEDTIME@ #30 tabs 02/01/23 02/03/23 02/02/23 Rx clopidogrel 75 mg tablet 75 mg PO DAILY@07 #30 tabs 02/01/23 02/03/23 02/03/23 Rx ertapenem 1 gram solution for 1 g IV DAILY 14 days #14 ea 02/01/23 02/03/23 02/03/23 Rx injection (Invanz) furosemide 40 mg tablet (Lasix) 20 mg PO DAILY 30 days #30 tabs 02/01/23 02/03/23 Unknown Rx isosorbide dinitrate 10 mg tablet 10 mg PO BID #60 tabs 02/01/23 02/03/23 02/03/23 08:00 Rx metoprolol tartrate 50 mg tablet 50 mg PO BID@07,19 #60 tabs 02/01/23 02/03/23 02/03/23 Rx potassium chloride 10 mEq 10 meq PO DAILY 02/03/23 02/03/23 02/03/23 History tablet,extended release (Klor-Con) Allergies Allergy/AdvReac Type Severity Reaction Status Date / Time meperidine [From Demerol] Allergy Unknown Unknown Verified 01/28/23 14:35 morphine Allergy Unknown Unknown Verified 01/28/23 14:35 PFSH Acute PFSH: Medical History (Updated 02/04/23 @ 00:22 by Saima Ozuna MD) Acute exacerbation of chronic obstructive pulmonary disease Acute systolic CHF (congestive heart failure) Bacteriuria CAD (coronary artery disease) Cardiogenic shock Cardiomyopathy COPD (chronic obstructive pulmonary disease) Cystitis Dehydration Dyslipidemia Elevated troponin Elevated troponin I level Emphysema lung Essential hypertension Extrinsic ureteral obstruction Fall Heart failure Heart failure, systolic, with acute decompensation Hip pain Hypoxia Lactic acidosis NSTEMI (non-ST elevated myocardial infarction) Peripheral arterial disease Pyuria Respiratory failure with hypoxia and hypercapnia Retained ureteral stent Systolic CHF Tobacco abuse Urinary incontinence UTI (urinary tract infection) Surgical History H/O arthroscopic knee surgery bilateral H/O oral surgery H/O shoulder surgery H/O total hip arthroplasty right H/O: H/O: hysterectomy History of colon surgery Family History Mother , at age 79 Hypertension Peripheral artery disease Diabetes Father , at age 47 Cancer pancreatic and lung Social History Smoking and tobacco status: current some day smoker (quitting) cigarettes Packs smoked per day: 0.5 Years cigarettes smoked: 60 [ Other cigarette details: Hx of 1 PPD x 50 Years] Second hand smoke exposure: Yes Smoking risk assessment/counseling performed?: Yes Alcohol intake: never Substance/Drug Use: never Lives independently: Yes Housing: Apartment Marital status: Legally Current occupational status: retired and disabled Do you think of yourself as: Straight/Heterosexual Current gender identity: Female Vitals/I&O/Wt Last Vital Signs Temp 98.5 F 02/03/23 23:43 Pulse 93 02/03/23 23:43 Resp 20 H 02/03/23 23:43 BP 141/66 02/03/23 23:43 Pulse Ox 97 02/03/23 23:43 O2 Del Method Nasal Cannula 02/03/23 23:43 Weight last 48 hrs Weight 58.967 kg Physical Exam Narrative: General: Appears lethargic and tired. Able to tell me her name and the fact that she is in the hospital and the president is Deb. Slow to answer but does answer questions. More awake at this time when seen in [facility] room 111 bed 2. HEENT: Normocephalic, atraumatic, EOMI, breathing comfortably on nasal cannula saturating 97%. Cardio: Regular rate rhythm, normal S1-S2 Respiratory: Mild rhonchi bilateral posterior lung tompkins, diminished at bases. GI: Abdomen soft, nontended, bowel sounds + Extremities: No edema noted, mild erythema noted at right dorsal foot area. No fluctuance noted. Small area of redness. No swelling. Data 02/03/23 17:42 02/03/23 17:42 A&P Assessment and plan (1) Altered mental status: (2) Elevated troponin: (3) ESBL (extended spectrum beta-lactamase) producing bacteria infection: (4) Urinary incontinence: (5) Dyslipidemia: (6) Retained ureteral stent: (7) Peripheral arterial disease: (8) Heart failure: (9) Essential hypertension: Plan #Altered mental status #History of centrilobular emphysema #UTI currently on Invanz #Left nephrolithiasis, right ureteral stent present #Coronary artery disease, multivessel, CABG recommended #COPD #Hypertension #Dyslipidemia #Chronic systolic congestive heart failure #History of peripheral arterial disease -Patient is altered and lethargic at this time. I will recheck a CT chest abdomen pelvis to evaluate for underlying pathological cause. Possible underlying infection? Patient does have retained ureteral stent and a nonobstructing kidney stone on the left side. Urinalysis grossly positive for bacteria, WBCs. Possibility of pyelonephritis? Stone or stent could be nidus of infection at this point ? My suspicion for metabolic encephalopathy is high at this time due to existing infection ? CT head negative for acute pathology ? Placed on DuoNeb every 6 hour as needed ? Check ABG ? Check ammonia level, vitamin B12 ? Blood cultures, urine culture ? Patient troponin 124. Follow 2-hour 6-hour troponin ? EKG does not show any acute ischemic changes at this time ? Continue patient on meropenem during hospital stay. Add vancomycin for empiric coverage de-escalate as further culture data becomes available ? Placed on gentle IV fluid hydration normal saline 75 cc/h ? Previous echo shows grade 1 diastolic dysfunction and EF of 35 to 40% ? Further management as above studies return ? Continue Lopressor 50 twice daily, Imdur 10 twice daily, aspirin Plavix atorvastatin ? Check bladder scan Full code SCDs, heparin SQ twice daily for DVT prophylaxis Attestations Medical Necessity Statement*: Greater than 2 midnight stay for management and work-up of altered mental status Coding Level of Care Code G0426 (50 min) TH Encounter Time (min): 50 Patient seen via Telehealth in the acute care setting (hospital or ED location) by agreement and consent of patient or patient area representative. Telehealth technology used during the visit includes video and audio. This patient encounter is appropriate and reasonable under the circumstances given the patient?s particular presentation at this time. The patient has been advised of the potential risks and limitations of this mode of treatment (including but not limited to the absence of in-person examination at this time) and has agreed to be treated by an off-site physician for this visit. If deemed clinically necessary from this telehealth visit, or if condition or consent for telehealth visit changes, an in-person visit will be arranged. For this encounter, total time for the origination of telehealth care on this date is as shown. Diagnoses Altered mental status R41.82 Elevated troponin R77.8 ESBL (extended spectrum beta-lactamase) producing bacteria infection A49.9; Z16.12 Urinary incontinence R32 Dyslipidemia E78.5 Retained ureteral stent Z96.0 Peripheral arterial disease I73.9 Heart failure I50.9 Essential hypertension I10
[2023-02-04] VITALS (14 sets, daily range): BP systolic 113–147; BP diastolic 47–88; PULSE 93–103; RESP 17–30; TEMP 36.3–36.9; O2SAT 94–99
--- NOTE | 2023-02-04 00:27 | CTR_ITS ---
PROCEDURE INFORMATION: Exam: CT Chest Without Contrast; Diagnostic Exam date and time: 02/04/2023 2:34 AM Age: 77 years old Clinical indication: Fever; Prior surgery; Surgery date: <1 month; Surgery type: Right ureteral stent; Additional info: Altered mental status, R/O underlying infection TECHNIQUE: Imaging protocol: Diagnostic computed tomography of the chest without contrast. Radiation optimization: All CT scans at this facility use at least one of these dose optimization techniques: automated exposure control; mA and/or kV adjustment per patient size (includes targeted exams where dose is matched to clinical indication); or iterative reconstruction. REPORTING DATA: Count of CT and Cardiac NM exams in prior 12 months: This patient has received 6 known CTs and 0 known cardiac nuclear medicine studies in the 12 months prior to the current study. COMPARISON: [place] [id number] 01/28/2023 4:09 PM RADIATION DOSE METRICS: Total DLP (mGy-cm): 242 FINDINGS: Tubes, catheters and devices: Right upper extremity PICC line terminates distal SVC lumen. Thyroid: Unremarkable thyroid lobes. Lungs: Endobronchial secretions in the right lower lobe segmental bronchi with new right lower lobe atelectasis changes. Pleural spaces: Trace pleural effusions. Negative for pneumothorax. Heart: Unremarkable. No cardiomegaly. No pericardial effusion. Coronary arteries: Large volume coronary artery calcifications. Mediastinal space: Unremarkable thoracic esophagus. Lymph nodes: Unremarkable. No enlarged lymph nodes. Vasculature: Unremarkable. No aortic aneurysm. Bones/joints: Pre-existing thoracic spine vertebral compression fractures are unchanged. No acute fracture. Soft tissues: Unremarkable. PROCEDURE INFORMATION: Exam: CT Abdomen And Pelvis Without Contrast Exam date and time: 02/04/2023 2:34 AM Age: 77 years old Clinical indication: Fever; Prior surgery; Surgery date: <1 month; Surgery type: Right ureteral stent; Additional info: Altered mental status, R/O underlying infection TECHNIQUE: Imaging protocol: Computed tomography of the abdomen and pelvis without contrast. Radiation optimization: All CT scans at this facility use at least one of these dose optimization techniques: automated exposure control; mA and/or kV adjustment per patient size (includes targeted exams where dose is matched to clinical indication); or iterative reconstruction. REPORTING DATA: Count of CT and Cardiac NM exams in prior 12 months: This patient has received 6 known CTs and 0 known cardiac nuclear medicine studies in the 12 months prior to the current study. COMPARISON: CT chest [place] [id number] 01/28/2023 4:09 PM RADIATION DOSE METRICS: Total DLP (mGy-cm): 338.1 FINDINGS: Liver: Normal. No mass. Gallbladder and bile ducts: Cholelithiasis. No definite wall thickening. Negative for biliary dilation. Pancreas: Normal. No ductal dilation. Spleen: Normal. No splenomegaly. Adrenal glands: Normal. No mass. Kidneys and ureters: Nonobstructing bilateral kidney stones. Asymmetric right renal cortical atrophy redemonstrated. Pre-existing right internal ureteral stent position is unchanged. Negative for acute perinephric inflammation. Stomach and bowel: Unremarkable. No obstruction. No mucosal thickening. Appendix: No evidence of appendicitis. Intraperitoneal space: Unremarkable. No free air. No significant fluid collection. Vasculature: Diffuse abdominal aorta atherosclerosis without aneurysm. Right iliac artery bypass graft redemonstrated but incompletely assessed on noncontrast imaging. Lymph nodes: Unremarkable. No enlarged lymph nodes. Urinary bladder: Bladder is decompressed by Velasquez catheter and not further evaluated. Reproductive: Hysterectomy. Bones/joints: Right hip arthroplasty has unremarkable alignment. Demineralized bones. Cortical deformity of the anterior lower sacrum is unchanged. Left femoral head osteonecrosis redemonstrated. Soft tissues: Unremarkable. CT[facility] [id number] IMPRESSION: Right lower lobe endobronchial secretions and atelectasis changes are new from comparison. Cannot exclude aspiration. IMPRESSION: Negative for acute abdominopelvic pathology.
[2023-02-04 01:06] LABS: ABG PCO2 34.8 mmHg (35-45); ABG PH Result 7.46 (7.35-7.45); Alveolar-Arterial Oxygen Gradi 5.9 mmHg (5-10); Arterial Blood Gas Hematocrit 27.7 % (37-47); Base Excess ABG 1.1 mmol/L (-2.0-2.0); Blood Gas Allen Test Pos; Blood Gas LPM 2.5 %; Blood Gas Sample Site Radial, left; Blood Gas Sample Type Arterial; Carboxyhemoglobin 1.4 %THgb (0.4-20.1); HCO3 ABG 24.8 mmol/L (22-26); HGB O2 Sat 92.1 % (95-100); Ionized Calcium Level - ABG 1.2 mmol/L (1.1-1.4); Methemoglobin 0.3 % (0.4-1.5); Oxygen Device NC; Oxygen Saturation ABG 93.7; PO2 ABG 61.1 mmHg (80.0-100.0); Potassium Level - ABG 3.3 mmol/L (3.5-5.0); Total Hemoglobin 9.1 g/dL (12-16)
[2023-02-04] MEDS: sodium chloride 0.9% 1,000 ML 50 ML IV (01:16)
[2023-02-04] MEDS: meropenem 1,000 MG in sodium chloride 0.9% (plus) 50 ML 100 MG IV ×3 (01:17→18:32)
[2023-02-04] MEDS: vancomycin 1,000 MG in sodium chloride 0.9% 250 ML 250 MG IV (01:18)
[2023-02-04] MEDS: heparin 5,000 unit/mL INJ 1 mL 5000 UNIT SUBCUT ×2 (01:20→14:40)
[2023-02-04 01:29] LABS: Ammonia 17 umol/L (11-51)
--- NOTE | 2023-02-04 01:34 | PC.NURSE ---
Performed bladder scan found patient to have 2ml. Velasquez catheter in place. Informed Dr Ozuna of results.
[2023-02-04 01:38] LABS: Procalcitonin 0.64 ng/mL (0-0.5)
[2023-02-04 01:48] LABS: Thyroid Stimulating Hormone 1.64 uIU/mL (0.27-4.20)
[2023-02-04 02:18] LABS: Vitamin B12 277 pg/mL (232-1245)
[2023-02-04 04:58] LABS: Lactate (Lactic Acid level) 0.6 mmol/L (0.5-2.2)
[2023-02-04 06:14] LABS: Reflex Lactate Order REFLEX LACTIC ORDERD
[2023-02-04] MEDS: ipratropium-albuterol 3 mL Neb INHALATION ×4 (07:56→20:09)
[2023-02-04 08:48] LABS: Lactate (Lactic Acid level) 0.6 mmol/L (0.5-2.2)
[2023-02-04] MEDS: metoprolol tartrate 50 mg Tablet PO ×2 (09:22→20:43)
[2023-02-04] MEDS: clopidogrel 75 mg Tablet PO (09:23)
[2023-02-04] MEDS: isosorbide dinitrate 20 mg Tablet 10 MG PO ×2 (09:23→18:31)
[2023-02-04] MEDS: aspirin 81 mg EC Tablet PO (09:23)
--- NOTE | 2023-02-04 09:52 | ECG_ITS ---
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 Measurements Intervals [place] Rate: 91 P: -1 RI: 169 QRS: 22 QRSD: 101 T: 74 QT: 401 QTc: 495 Interpretive Statements SINUS RHYTHM POSSIBLE LEFT VENTRICULAR HYPERTROPHY [VOLTAGE CRITERIA PLUS LAE OR QRS WIDENING] INFERIOR MYOCARDIAL INFARCTION , PROBABLY OLD [40+ ms Q WAVE AND/OR ST/T ABNORMALITY IN II/aVF] Compared to ECG 02/03/2023 18:18:07 No significant changes Electronically Signed On 02-04-2023 14:14:25 CDT by Meera Buckley M.D. [id number]
[2023-02-04 11:23] LABS: C Reactive Protein 99.9 mg/L (0.0-4.9)
[2023-02-04 11:40] LABS: Troponin(5th) Baseline 119 ng/L (0-10)
--- NOTE | 2023-02-04 11:52 | ECG_ITS ---
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 Measurements Intervals [place] Rate: 97 P: -6 HI: 170 QRS: 23 QRSD: 104 T: 88 QT: 365 QTc: 465 Interpretive Statements SINUS RHYTHM POSSIBLE LEFT VENTRICULAR HYPERTROPHY [VOLTAGE CRITERIA PLUS LAE OR QRS WIDENING] PROBABLE INFERIOR MYOCARDIAL INFARCTION , OF INDETERMINATE AGE [35 ms Q WAVE IN II/aVF] Compared to ECG 02/04/2023 10:37:54 No significant changes Electronically Signed On 02-04-2023 14:16:07 CDT by Meera Buckley M.D. [id number]
--- NOTE | 2023-02-04 13:12 | P.PN_ITS ---
Subjective Subjective: Patient was seen this morning, she was alert and awake, following commands, according to nursing staff they got her up and use the bathroom, she had breakfast this morning, she has no complaints of chest pain, shortness of breath, no abdominal pain, Vitals/I&O/Wt Last Vital Signs Temp 97.3 F L 02/04/23 04:00 Pulse 94 02/04/23 11:49 Resp 20 H 02/04/23 11:49 BP 132/57 02/04/23 08:00 Pulse Ox 98 02/04/23 11:49 O2 Del Method Nasal Cannula 02/04/23 11:49 O2 Flow Rate 2 02/04/23 11:49 02/03/23 02/04/23 02/04/23 22:59 06:59 14:59 Intake Total 348.333 / 348.333 715 / 715 Balance 348.333 / 348.333 715 / 715 Weight last 48 hrs Weight 58.967 kg Physical Exam Const: COMMON NORMALS: no acute distress ORIENTATION/CONSCIOUSNESS: Yes aw irvin, Yes oriented to person and Yes oriented to place; not oriented to time Resp: COMMON NORMALS: normal respiratory effort, No retractions, No use of accessory muscles and clear to auscultation bilaterally AUSCULTATION: clear to auscultation bilaterally Cardio: COMMON NORMALS: regular rate, regular rhythm, S1 normal heart sound present and S2 normal heart sound present RATE: regular rate RHYTHM: regular rhythm HEART SOUNDS: S1 normal heart sound present and S2 normal heart sound present GI: COMMON NORMALS: Normal to inspection, nondistended, normoactive bowel sounds present, Soft to palpation, non-tender and No hepatosplenomegaly present PALPATION: Yes Soft to palpation and Yes No hepatosplenomegaly present Extremity: COMMON NORMALS: no pedal edema Neuro: SENSORIUM/ORIENTATION: Yes oriented to person, Yes oriented to place and No oriented to time Data 02/03/23 17:42 02/03/23 17:42 Micro: Microbiology 02/04/23 00:52 Blood Culture - Preliminary Blood SPECIMEN COLLECTED 02/04/23 00:55 Blood Culture - Preliminary Blood SPECIMEN COLLECTED A&P Assessment and plan (1) Altered mental status: (2) Elevated troponin: (3) ESBL (extended spectrum beta-lactamase) producing bacteria infection: (4) Urinary incontinence: (5) Dyslipidemia: (6) Retained ureteral stent: (7) Peripheral arterial disease: (8) Heart failure: (9) Essential hypertension: Plan #Altered mental status #History of centrilobular emphysema #UTI currently on Invanz #Left nephrolithiasis, right ureteral stent present #Coronary artery disease, multivessel, CABG recommended #COPD #Hypertension #Dyslipidemia #Chronic systolic congestive heart failure #History of peripheral arterial disease -Patient is altered and lethargic at this time. I will recheck a CT chest abdomen pelvis to evaluate for underlying pathological cause. Possible underly ing infection? Patient does have retained ureteral stent and a nonobstructing kidney stone on the left side. Urinalysis grossly positive for bacteria, WBCs. Possibility of pyelonephritis? Stone or stent could be nidus of infection at this point ? My suspicion for metabolic encephalopathy is high at this time due to existing infection ? CT head negative for acute pathology ? Placed on DuoNeb every 6 hour as needed ? Blood cultures, urine culture ? Patient troponin 124. Follow 2-hour 6-hour troponin ? EKG does not show any acute ischemic changes at this time ? Continue patient on meropenem during hospital stay. Add vancomycin for empiric coverage de-escalate as further culture data becomes available ? off iv fluids ? Previous echo shows grade 1 diastolic dysfunction and EF of 35 to 40% ? Further management as above studies return ? Continue Lopressor 50 twice daily, Imdur 10 twice daily, aspirin Plavix atorvastatin ? Check bladder scan Full code SCDs, heparin SQ twice daily for DVT prophylaxis Attestations Medical Necessity Statement*: Patient requires hospitalization due to altered mental status, UTI, concern for ESBL infection Diagnoses Altered mental status R41.82 Elevated troponin R77.8 ESBL (extended spectrum beta-lactamase) producing bacteria infection A49.9; Z16.12 Urinary incontinence R32 Dyslipidemia E78.5 Retained ureteral stent Z96.0 Peripheral arterial disease I73.9 Heart failure I50.9 Essential hypertension I10
[2023-02-04 13:19] LABS: Troponin 5 2HR 120.8 ng/L (0-10); Troponin 5 2HR Delta 1.8 ABS# (0-10)
--- NOTE | 2023-02-04 15:52 | ECG_ITS ---
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 Measurements Intervals [place] Rate: 99 P: -17 CA: 190 QRS: 25 QRSD: 105 T: 90 QT: 378 QTc: 487 Interpretive Statements SINUS RHYTHM WITH SINUS ARRHYTHMIA LEFT VENTRICULAR HYPERTROPHY AND ST-T CHANGE [VOLTAGE CRITERIA PLUS ST/T ABNORMALITY] INFERIOR MYOCARDIAL INFARCTION , PROBABLY OLD [40+ ms Q WAVE AND/OR ST/T ABNORMALITY IN II/aVF] Compared to ECG 02/04/2023 12:53:52 ST (T wave) deviation now present Myocardial infarct finding still present Electronically Signed On 02-05-2023 8:03:48 CDT by Spencer Maciel M.D. [id number]
[2023-02-04 17:22] LABS: Troponin 5 6HR Delta 5.7 ng/L (0-12)
[2023-02-04 17:24] LABS: Troponin 5 6HR 124.7 ng/L (0-10)
[2023-02-04] MEDS: NON-FORMULARY MEDICATION (Methenamine Hippurate 1 gram tablet) 1 EACH PO (20:43)
[2023-02-04] MEDS: atorvastatin 40 mg Tablet PO (20:43)
[2023-02-05] VITALS (69 sets, daily range): BP systolic 102–125; BP diastolic 49–60; PULSE 77–108; RESP 16–34; TEMP 36.7–37; O2SAT 80–100
[2023-02-05] MEDS: heparin 5,000 unit/mL INJ 1 mL 5000 UNIT SUBCUT ×2 (00:02→13:35)
[2023-02-05] MEDS: vancomycin 1,000 MG in sodium chloride 0.9% 250 ML 250 MG IV (00:36)
[2023-02-05 04:29] LABS: Basophils % 0.5 %; Eosinophils # 0.2 10^3/uL (0.0-0.8); Hematocrit 26.5 % (37.0-47.0); Hemoglobin 8.4 g/dL (11.5-15.3); Lymphocytes # 1.4 10^3/uL (0.8-4.8); Lymphocytes % 23.8 %; Mean Corpuscular HGB Conc 31.7 g/dL (30.0-36.0); Mean Corpuscular Volume 94.6 fl (81-99); Mean Platelet Volume 9.6 fL (7.4-10.4); Monocytes # 0.4 10^3/uL (0.2-0.9); Monocytes % 7.3 %; Neutrophils # 3.67 10^3/uL (1.8-7.7); Neutrophils % 63.7 %; Nucleated Red Blood Cells % 0 %; Platelet Count 219 10^3/cmm (130-400); Red Cell Distribution Width 14.6 % (12.1-15.1); White Blood Count 5.8 10^3/uL (4.0-10.0)
[2023-02-05 04:52] LABS: Blood Urea Nitrogen 13 mg/dL (8-23); Calcium 8.4 mg/dL (8.5-10.5); Carbon Dioxide 23 mmol/L (22-29); Glucose 84 mg/dL (65-115); Magnesium 1.8 mg/dL (1.7-2.3); Osmolality Calculated 289 mOsm/kg (285-295); Sodium 140 mmol/L (136-145)
[2023-02-05 05:01] LABS: Anion Gap 12.5 (5-19); Chloride 108 mmol/L (98-107); Potassium 3.5 mmol/L (3.5-5.1)
[2023-02-05] MEDS: aspirin 81 mg EC Tablet PO (06:13)
[2023-02-05] MEDS: metoprolol tartrate 50 mg Tablet PO ×2 (06:13→19:37)
[2023-02-05] MEDS: clopidogrel 75 mg Tablet PO (06:13)
[2023-02-05] MEDS: NON-FORMULARY MEDICATION (Methenamine Hippurate 1 gram tablet) 1 EACH PO (06:14)
[2023-02-05] MEDS: ipratropium-albuterol 3 mL Neb INHALATION ×4 (08:03→21:09)
[2023-02-05] MEDS: pantoprazole 40 mg SDV IVP ×2 (09:21→20:30)
[2023-02-05] MEDS: meropenem 1,000 MG in sodium chloride 0.9% (plus) 50 ML 100 MG IV ×3 (09:21→16:42)
[2023-02-05] MEDS: isosorbide dinitrate 20 mg Tablet 10 MG PO ×2 (09:22→19:36)
[2023-02-05] MEDS: sucralfate 1 gm Tablet PO ×2 (09:22→20:29)
[2023-02-05 09:24] LABS: Ferritin 204 ng/mL (15-150); Iron 24 ug/dL (37-145)
[2023-02-05 09:27] LABS: Percent Saturation 12.9 % (20-50); Total Iron Binding Capacity 185 mcg/dl; Unsaturated Iron Binding 161 ug/dL (112-347)
--- NOTE | 2023-02-05 15:25 | P.PN_ITS ---
Subjective Subjective: Patient was seen this morning, denies any fevers, chills she is alert to person, to place not to time, denies any bloody or black stools no abdominal pain, she is from straight as she has her recurrent UTI especially she was discharged on antibiotics IV PICC line Vitals/I&O/Wt Last Vital Signs Temp 98.6 F 02/05/23 03:55 Pulse 90 02/05/23 12:12 Resp 23 H 02/05/23 12:00 BP 125/51 02/05/23 12:00 Pulse Ox 95 02/05/23 11:56 O2 Del Method Nasal Cannula 02/05/23 11:56 O2 Flow Rate 2 02/05/23 11:56 02/05/23 02/05/23 02/05/23 06:59 14:59 22:59 Intake Total 300 / 1951.667 50 / 50 Output Total 100 / 1025 Balance 200 / 926.667 50 / 50 Weight last 48 hrs Weight 58.967 kg Physical Exam Const: COMMON NORMALS: no acute distress and patient oriented x3 Resp: COMMON NORMALS: normal respiratory effort, No retractions, No use of accessory muscles and clear to auscultation bilaterally AUSCULTATION: clear to auscultation bilaterally Cardio: COMMON NORMALS: regular rate, regular rhythm, S1 normal heart sound present and S2 normal heart sound present RATE: regular rate RHYTHM: regular rhythm HEART SOUNDS: S1 normal heart sound present and S2 normal heart sound present GI: COMMON NORMALS: Normal to inspection, nondistended, normoactive bowel sounds present and non-tender Extremity: COMMON NORMALS: no pedal edema Neuro: COMMON NORMALS: patient oriented x3 Psych: COMMON NORMALS: mental status grossly normal Data 02/05/23 03:52 02/05/23 03:52 Micro: Microbiology 02/05/23 10:24 Occult Blood (FIT) - Final Stool - Stool Aspirate 02/04/23 00:52 Blood Culture - Preliminary Blood NEGATIVE TO DATE 02/04/23 00:55 Blood Culture - Preliminary Blood NEGATIVE TO DATE A&P Assessment and plan (1) Altered mental status: (2) Elevated troponin: (3) ESBL (extended spectrum beta-lactamase) producing bacteria infection: (4) Urinary incontinence: (5) Dyslipidemia: (6) Retained ureteral stent: (7) Peripheral arterial disease: (8) Heart failure: (9) Essential hypertension: (10) Acute anemia: (11) UTI due to extended-spectrum beta lactamase (ESBL) producing Escherichia coli: Plan #Altered mental status #History of centrilobular emphysema #UTI currently on Invanz #Left nephrolithiasis, right ureteral stent present #Coronary artery disease, multivessel, CABG recommended #COPD #Hypertension #Dyslipidemia #Chronic systolic congestive heart failure #History of peripheral arterial disease #Acute anemia #NSTEMI -Mentation has significantly improved, back to baseline -Patient has recurrent ESBL E. coli UTIs, currently has a PICC line and was on discharged on Invanz -Her urine cultures have shown positive E. coli ESBL since May 2021, she could be a chronic colonizer -However during this hospitalization she was significantly confused, and her m entation improved with hospitalization and meropenem -She does have a stent in place -With Dr. Mayes goes transmission tester tomorrow we will have to potentially discuss with him the stent being a source of infection, possible change out depending on his thoughts ? My suspicion for metabolic encephalopathy is high at this time due to existing infection ? CT head negative for acute pathology ? Placed on DuoNeb every 6 hour as needed ? Blood cultures, urine culture ? Patient troponin 124. 6-hour troponin 124 delta 5.7 ? EKG does shows mild ST depressions in inferior and lateral leads -She does have an extensive cardiovascular history, EF of 35 to 40%, it was recommended for her to have a CABG however she declined she wanted to undergo medical evaluation -She also has severe peripheral vascular disease with right SHIRLEY 0.4 however she declined for any surgical intervention she wants to be medically managed ? Continue patient on meropenem during hospital stay. Add vancomycin for empiric coverage de-escalate as further culture data becomes available ? She also has developed anemia, and 8.4, he is on aspirin, Plavix and would hold her heparin, Hemoccult stool iron studies, repeat CBC maintain hemoglobin greater than 8 given her CAD ? Previous echo shows grade 1 diastolic dysfunction and EF of 35 to 40% ? Continue Protonix, Carafate ? Continue Lopressor 50 twice daily, Imdur 10 twice daily, aspirin Plavix atorvastatin ? Monitor mentation Full code SCDs, heparin SQ twice daily currently on hold for DVT prophylaxis Plan for today continue broad-spectrum antibiotic therapy, monitor hemoglobin iron studies, Dr. Ye comes back transmission tester tomorrow, will discuss with him about possible ureteral stent exchange, or conservative management, Attestations Medical Necessity Statement*: Requires hospitalization for altered mental status, UTI, recurrent ESBL UTI, acute anemia, NSTEMI, history of right ureteral stent Diagnoses Altered mental status R41.82 Elevated troponin R77.8 ESBL (extended spectrum beta-lactamase) producing bacteria infection A49.9; Z16.12 Urinary incontinence R32 Dyslipidemia E78.5 Retained ureteral stent Z96.0 Peripheral arterial disease I73.9 Heart failure I50.9 Essential hypertension I10 Acute anemia D64.9 UTI due to extended-spectrum beta lactamase (ESBL) producing Escherichia coli N39.0; B96.29; Z16.12
[2023-02-05 16:52] LABS: Basophils % 0.4 %; Eosinophils # 0.1 10^3/uL (0.0-0.8); Eosinophils % 1.6 %; Hematocrit 28.5 % (37.0-47.0); Hemoglobin 8.8 g/dL (11.5-15.3); Lymphocytes # 1.1 10^3/uL (0.8-4.8); Lymphocytes % 20.8 %; Mean Corpuscular HGB Conc 30.9 g/dL (30.0-36.0); Mean Corpuscular Hemoglobin 29.8 pg (28.0-34.0); Mean Corpuscular Volume 96.6 fl (81-99); Mean Platelet Volume 9.6 fL (7.4-10.4); Monocytes # 0.4 10^3/uL (0.2-0.9); Monocytes % 6.4 %; Neutrophils # 3.81 10^3/uL (1.8-7.7); Neutrophils % 69.3 %; Nucleated Red Blood Cells % 0 %; Platelet Count 245 10^3/cmm (130-400); Red Blood Count 2.95 10^6/uL (4.1-5.3); Red Cell Distribution Width 14.7 % (12.1-15.1); White Blood Count 5.5 10^3/uL (4.0-10.0)
[2023-02-05] MEDS: atorvastatin 40 mg Tablet PO (19:36)
[2023-02-06] VITALS (134 sets, daily range): BP systolic 119–146; BP diastolic 57–83; PULSE 66–120; RESP 13–42; TEMP 36.6–37.1; O2SAT 82–100
[2023-02-06] MEDS: meropenem 1,000 MG in sodium chloride 0.9% (plus) 50 ML 100 MG IV ×3 (01:02→16:18)
[2023-02-06] MEDS: vancomycin 1,000 MG in sodium chloride 0.9% 250 ML 250 MG IV (01:04)
[2023-02-06] MEDS: heparin 5,000 unit/mL INJ 1 mL 5000 UNIT SUBCUT (01:08)
[2023-02-06 04:16] LABS: Alanine Aminotransferase 12 U/L (0-33); Albumin Level 2.8 g/dL (3.5-5.2); Alkaline Phosphatase 92 U/L (35-105); Anion Gap 14.3 (5-19); Aspartate Amino Transferase 16 U/L (0-32); Blood Urea Nitrogen 9 mg/dL (8-23); Calcium 8.7 mg/dL (8.5-10.5); Carbon Dioxide 22 mmol/L (22-29); Chloride 109 mmol/L (98-107); Globulin 2.9 g/dL (1.3-4.6); Glucose 87 mg/dL (65-115); Osmolality Calculated 292 mOsm/kg (285-295); Potassium 3.3 mmol/L (3.5-5.1); Sodium 142 mmol/L (136-145); Total Bilirubin 0.4 mg/dL (0.15-1.2); Total Protein 5.7 g/dL (6.6-8.7)
[2023-02-06] MEDS: potassium chloride premix 100 ML 25 MEQ IV (04:59)
[2023-02-06] MEDS: clopidogrel 75 mg Tablet PO (06:18)
[2023-02-06] MEDS: aspirin 81 mg EC Tablet PO (06:18)
[2023-02-06] MEDS: metoprolol tartrate 50 mg Tablet PO ×2 (06:18→17:36)
[2023-02-06] MEDS: ipratropium-albuterol 3 mL Neb INHALATION (07:48)
--- NOTE | 2023-02-06 08:51 | PC.SOCIAL ---
IMM update IMM updated with patient and son at bedside. Copy PG 2 provided. Verbalized an understanding. Initialled, dated, timed, and placed in chart.
[2023-02-06] MEDS: pantoprazole 40 mg SDV IVP ×2 (09:00→20:08)
[2023-02-06] MEDS: sucralfate 1 gm Tablet PO ×2 (09:00→20:08)
[2023-02-06] MEDS: isosorbide dinitrate 20 mg Tablet 10 MG PO ×2 (09:01→17:35)
--- NOTE | 2023-02-06 11:37 | P.PN_ITS ---
Subjective Subjective: She reports she is doing all right. Denies any discomfort. No abdominal pain. Denies shortness of breath or cough. She knows she is in the hospital. Remember the year, does not remember the mon, and states it is not unusual for her. Son later notes that she is still showing signs of confusion. After me leaving the room she told him we cannot keep any out here, they are going to get kicked out . Also reported seeing black things with white faces floating around calling them kitties. Vitals/I&O/Wt Last Vital Signs Temp 98.1 F 02/06/23 03:01 Pulse 95 02/06/23 07:50 Resp 18 02/06/23 07:50 BP 146/63 02/06/23 06:20 Pulse Ox 95 02/06/23 07:50 O2 Del Method Nasal Cannula 02/06/23 07:50 O2 Flow Rate 2 02/06/23 07:50 02/05/23 02/06/23 02/06/23 22:59 06:59 14:59 Intake Total 50 / 100 300 / 400 150 / 150 Output Total 350 / 350 150 / 500 Balance -300 / -250 150 / -100 150 / 150 Physical Exam Narrative: Son at bedside Const: COMMON NORMALS: alert GENERAL APPEARANCE: cooperative ORIENTATION/CONSCIOUSNESS: Yes awake and Yes Other orientation findings (Does not remember the month) HENMT: COMMON NORMALS: oropharynx normal Neck/C-Spine: COMMON NORMALS: no JVD Resp: COMMON NORMALS: normal respiratory effort and clear to auscultation bilaterally AUSCULTATION: clear to auscultation bilaterally Cardio: COMMON NORMALS: no JVD, regular rhythm, S1 normal heart sound present, S2 normal heart sound present and No murmurs present (Cardio) RHYTHM: regular rhythm HEART SOUNDS: S1 normal heart sound present and S2 normal heart sound present GI: COMMON NORMALS: Normal to inspection, nondistended, normoactive bowel sounds present, Soft to palpation and non-tender PALPATION: Yes Soft to palpation Extremity: COMMON NORMALS: no joint enlargement and no pedal edema Neuro: COMMON NORMALS: moves all extremities SENSORIUM/ORIENTATION: Yes alert Skin: COMMON NORMALS: no rashes or lesions noted GENERAL SKIN EXAM: no rashes or lesions noted Data 02/05/23 16:40 02/06/23 03:06 Micro: Microbiology 02/05/23 10:24 Occult Blood (FIT) - Final Stool - Stool Aspirate A&P Assessment and plan (1) Altered mental status: (2) Elevated troponin: (3) ESBL (extended spectrum beta-lactamase) producing bacteria infection: (4) Urinary incontinence: (5) Dyslipidemia: (6) Retained ureteral stent: (7) Peripheral arterial disease: (8) Heart failure: (9) Essential hypertension: (10) Acute anemia: (11) UTI due to extended-spectrum beta lactamase (ESBL) producing Escherichia coli: Plan #Altered mental status #History of centrilobular emphysema #UTI currently on Invanz #Left nephrolithiasis, right ureteral stent present #Coronary artery disease, multivessel, CABG recommended #COPD #Hypertension #Dyslipidemia #Chronic systolic congestive heart failure #History of peripheral arterial disease #Acute anemia #NSTEMI Acute encephalopathy: Mentation reportedly improved but is still confused. Reviewing her medications, will stop anticholinergic ipratropium nebs. Discussing with her son, denies any known history of dementia/cognitive impairment, but does not appear to be oriented to month, and this does not appear to be new, he states it is not usual for her. May have some mild cognitive impairment possibly making her more susceptible to delirium. Appears to be having some hallucinations, seeing black cats with white faces floating around. Acute encephalopathy may be secondary to urinary tract infection, multiple recent hospitalizations/change in location from hospital to group home and back to hospital again. In case contributing to medication toxicity as above, stop anticholinergics. Discussed with her son may benefit once she is at baseline from additional as mental for possible underlying mild cognitive impairment. 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 Continue treatment of ESBL E. coli UTI. Urology not on today, returning tomorrow, will see if can get in touch with regards to the ureteral stent. Urine culture results appreciated. Stop vancomycin. -Patient has recurrent ESBL E. coli UTIs, currently has a PICC line and was on discharged on Invanz -Her urine cultures have shown positive E. coli ESBL since May 2021, she could be a chronic colonizer -However during this hospitalization she was significantly confused, and her mentation improved with hospitalization and meropenem Has a ureteral stent. Additionally discussed with her nurse on right lower lobe some mucus noted on presentation, possibility of developing pneumonia. She denies any respiratory issues denies cough. Speech therapy on board. Mild cough and clear episodes during lunch. Continue aspiration precautions. Continue therapy. ? CT head negative for acute pathology ? Patient troponin 124. 6-hour troponin 124 delta 5.7 ? EKG does shows mild ST depressions in inferior and lateral leads -She does have an extensive cardiovascular history, EF of 35 to 40%, it was recommended for her to have a CABG however she declined she wanted to undergo medical evaluation -She also has severe peripheral vascular disease with right SHIRLEY 0.4 however she declined for any surgical intervention she wants to be medically managed Hemoglobin follow-up 8.8. Recheck CBC requested. ? She also has developed anemia, and 8.4, he is on aspirin, Plavix and would hold her heparin, Hemoccult stool iron studies, repeat CBC maintain hemoglobin greater than 8 given her CAD ? Previous echo shows grade 1 diastolic dysfunction and EF of 35 to 40% ? Continue Protonix, Carafate ? Continue Lopressor 50 twice daily, Imdur 10 twice daily, aspirin Plavix atorvastatin ? Monitor mentation Full code SCDs, heparin SQ twice daily currently on hold for DVT prophylaxis Attestations Medical Necessity Statement*: Continue admission for assessment and management of complicated UTI, pending collaboration with urology, acute encephalopathy and delirium, medication adjustment, discharge planning and arrangements. Diagnoses Altered mental status R41.82 Elevated troponin R77.8 ESBL (extended spectrum beta-lactamase) producing bacteria infection A49.9; Z16.12 Urinary incontinence R32 Dyslipidemia E78.5 Retained ureteral stent Z96.0 Peripheral arterial disease I73.9 Heart failure I50.9 Essential hypertension I10 Acute anemia D64.9 UTI due to extended-spectrum beta lactamase (ESBL) producing Escherichia coli N39.0; B96.29; Z16.12
[2023-02-06] MEDS: atorvastatin 40 mg Tablet PO (17:36)
[2023-02-06 23:58] LABS: Vancomycin Trough 13.8 ug/mL (10-15)
[2023-02-07] VITALS (7 sets, daily range): BP systolic 105–141; BP diastolic 48–67; PULSE 90–116; RESP 18–23; TEMP 37.1–37.3; O2SAT 90–98
[2023-02-07] MEDS: meropenem 1,000 MG in sodium chloride 0.9% (plus) 50 ML 100 MG IV ×4 (00:14→23:41)
[2023-02-07] MEDS: heparin 5,000 unit/mL INJ 1 mL 5000 UNIT SUBCUT ×3 (00:15→23:41)
[2023-02-07] MEDS: clopidogrel 75 mg Tablet PO (05:58)
[2023-02-07] MEDS: metoprolol tartrate 50 mg Tablet PO ×2 (05:58→18:32)
[2023-02-07] MEDS: aspirin 81 mg EC Tablet PO (05:58)
[2023-02-07 06:24] LABS: Basophils % 0.5 %; Eosinophils # 0.1 10^3/uL (0.0-0.8); Eosinophils % 1.2 %; Hemoglobin 8.9 g/dL (11.5-15.3); Lymphocytes # 0.7 10^3/uL (0.8-4.8); Mean Corpuscular HGB Conc 30.7 g/dL (30.0-36.0); Mean Corpuscular Hemoglobin 30.1 pg (28.0-34.0); Mean Platelet Volume 9.7 fL (7.4-10.4); Monocytes # 0.3 10^3/uL (0.2-0.9); Monocytes % 4.6 %; Neutrophils # 5.38 10^3/uL (1.8-7.7); Neutrophils % 81.9 %; Nucleated Red Blood Cells % 0 %; Platelet Count 237 10^3/cmm (130-400); Red Blood Count 2.96 10^6/uL (4.1-5.3); White Blood Count 6.6 10^3/uL (4.0-10.0)
[2023-02-07 06:50] LABS: Alanine Aminotransferase 12 U/L (0-33); Alkaline Phosphatase 94 U/L (35-105); Anion Gap 16.5 (5-19); Aspartate Amino Transferase 16 U/L (0-32); Blood Urea Nitrogen 8 mg/dL (8-23); Calcium 8.9 mg/dL (8.5-10.5); Carbon Dioxide 20 mmol/L (22-29); Chloride 107 mmol/L (98-107); Globulin 3.1 g/dL (1.3-4.6); Glucose 85 mg/dL (65-115); Osmolality Calculated 288 mOsm/kg (285-295); Potassium 3.5 mmol/L (3.5-5.1); Sodium 140 mmol/L (136-145); Total Bilirubin 0.5 mg/dL (0.15-1.2); Total Protein 6.1 g/dL (6.6-8.7)
[2023-02-07] MEDS: isosorbide dinitrate 20 mg Tablet 10 MG PO ×2 (09:23→17:31)
[2023-02-07] MEDS: sucralfate 1 gm Tablet PO ×2 (09:24→19:47)
[2023-02-07] MEDS: pantoprazole 40 mg SDV IVP ×2 (09:24→19:47)
--- NOTE | 2023-02-07 09:30 | PC.CHAP ---
Pastoral Care Encounter/Spiritual Assessment Type of Contact [] Declined methods specialist visit [] Patient/Family/Request visit [] Outpatient visit [] Follow-up visit [] Physician referral [] Code/Alert [] Routine visit [] Staff referral [] Actively dying [] Patient sleeping [] Family support [] [] Out of room [] Palliative care [] [] Receiving care in room [] Pre-surgical visit [] Trauma [] Long length of stay [] ICU visit [x] Other: isolation Relational/Emotional Strength [] Patient feels connected with others/family/visitors/staff [] Distress [] Loneliness/isolation [] Abandonment Spirituality of Patient [] Person of Ember [] Attends Cheondoism of their Ember [] Believes in Prayer [] Reads Bible or Scientologist materials [] There are Spiritual issues to be addressed Vegetable Grader Interventions [] Prayer [] Active listening [] Non-anxious presence [] Spiritual/emotional support [] Crisis/trauma care [] Spiritual counseling [] Bereavement support [] Provided bereavement packet [] Provided Bible/devotional materials [] Provided toy/stuffed animal, coloring book to patient or family member [] Provided Communion [] Anointing/[place] [] Salvation [] Completed spiritual assessment [] Other: Impact on Illness or Injury [] Angry [] Fearful [] Anxious [] Often cries [] Exhaustion [] Unable to work [] Unable to attend scientology [] Unable to walk/stand [] Unable to read [] Unable to drive [] Unable to eat/drink [] Unable to sleep [] Unable to be with family [] Patient intubated [] Other: Summary Time spent with patient
--- NOTE | 2023-02-07 10:35 | PC.NURSE ---
pt's son came to vist this morning.pt recognized him.otherwise very confused
--- NOTE | 2023-02-07 13:05 | PC.NURSE ---
pt admitted with picc line which was placed at last admission on 02/01/23.this is her only access.unable to chart as picc in [employer].i discussed with my program manager slp.she will discuss with [employer] help desk.
--- NOTE | 2023-02-07 17:43 | P.CONIM_ITS ---
Providers/Reason For Consult Consulting Physician/Specialty*: Urology/Mayes Reason for Consult*: Urology/Mayes Requesting Physician: Dr. Aguayo Attending Physician: Perry Aguayo Primary Care Provider: Catalino Sanders MD History of Present Illness History of Present Illness Denia Gerardo is a 77 year old female well-known to me for history of chronic right ureteral stricture requiring chronic indwelling stent for management. Her last stent change was in November 2022 after fairly prolonged absence between stent changes. Did require ESWL for stent removal and that went well. She has a long history of chronic UTIs unfortunately with ESBL E. coli. Since her stent was changed she has been hospitalized several times with well- documented persistence of ESBL E. coli and was recently hospitalized and di scharged with a PICC line in place for IV Invanz. This hospitalization was initiated when she presented to the emergency department with progressive deterioration of mental status confusion lethargy a nd difficult to arouse. Confusion has improved somewhat with meropenem. I reviewed her CT scan which was performed on 02/04/2023 that showed stent in good position, no evidence of persistent hydronephrosis or perirenal or ureteral inflammatory changes. No evidence of intra-abdominal inflammatory changes either. Concern was expressed regarding the potential for the stent being a source of colonization for her recurrent UTI I discussed with Dr. Aguayo the option for changing the stent as potentially providing some advantage. Discussed also with the patient and her son the potential merits of changing the stent. We will tentatively plan for that on 02/08/2023. We will reevaluate in the [facility] to confirm that plan Review of Systems Const: Reports: malaise Eyes: Denies: eye redness ENMT: Denies: hoarseness Card: Denies: chest pain Resp: Reports: dyspnea; Denies: productive cough GI: Denies: abdominal pain, nausea or vomiting : Denies: flank pain Musc: Denies: joint redness Neuro: Reports: confusion, behavioral changes and difficulty communicating thoughts; Denies: Slurred speech present Psych: Reports: memory loss Endo: Denies: flushing Elia/Lymph: Reports: easy bruising and easy bleeding All/Imm: Denies: urticaria or acute wheezing Medications/Allergies Home Medications Medication Instructions Recorded Confirmed Last Taken Type fluticasone propionate 50 1 spray intranasal DAILY@07 07/26/22 02/03/23 02/03/23 History mcg/actuation nasal spray,suspension (Flonase Allergy Relief) nitroglycerin 0.4 mg sublingual 0.4 mg sublingual Q5M PRN chest 10/20/22 02/03/23 Unknown Rx tablet pain #25 tabs ipratropium bromide 21 mcg (0.03 2 spray intranasal TID PRN drainage 01/22/23 02/03/23 Unknown History %) nasal spray ascorbic acid (vitamin C) 500 mg 1,000 mg PO BID@07,19 01/23/23 02/03/23 02/03/23 History tablet (Vitamin C) methenamine hippurate 1 gram tablet 1 g PO BID@07,01/23/23 02/03/23 02/03/23 History multivitamin 1 tab PO DAILY@07 01/23/23 02/03/23 02/03/23 History aspirin 81 mg tablet,delayed 81 mg PO DAILY@07 #30 tabs 02/01/23 02/03/23 02/03/23 Rx release atorvastatin 40 mg tablet 40 mg PO BEDTIME@19 #30 tabs 02/01/23 02/03/23 02/02/23 Rx clopidogrel 75 mg tablet 75 mg PO DAILY@07 #30 tabs 02/01/23 02/03/23 02/03/23 Rx ertapenem 1 gram solution for 1 g IV DAILY 14 days #14 ea 02/01/23 02/03/23 02/03/23 Rx injection (Invanz) furosemide 40 mg tablet (Lasix) 20 mg PO DAILY 30 days #30 tabs 02/01/23 02/03/23 Unknown Rx isosorbide dinitrate 10 mg tablet 10 mg PO BID #60 tabs 02/01/23 02/03/23 02/03/23 08:00 Rx metoprolol tartrate 50 mg tablet 50 mg PO BID@07,19 #60 tabs 02/01/23 02/03/23 02/03/23 Rx potassium chloride 10 mEq 10 meq PO DAILY 02/03/23 02/03/23 02/03/23 History tablet,extended release (Klor-Con) Allergies Allergy/AdvReac Type Severity Reaction Status Date / Time meperidine [From Demerol] Allergy Unknown Unknown Verified 01/28/23 14:35 morphine Allergy Unknown Unknown Verified 01/28/23 14:35 Current Medications Generic Name Dose Route Start Last Admin Trade Name Deena PRN Reason Stop Dose Admin Aspirin 81 mg 02/04/23 07:00 02/07/23 05:58 Aspirin 81 Mg Ec Tablet PO 81 mg DAILY@07 [facility] Administration Atorvastatin Calcium 40 mg 02/04/23 19:00 02/06/23 17:36 Atorvastatin 40 Mg Tablet PO 40 mg BEDTIME@ [facility] Administration Clopidogrel Bisulfate 75 mg 02/04/23 07:00 02/07/23 05:58 Clopidogrel 75 Mg Tablet PO 75 mg DAILY@07 [facility] Administration Heparin Sodium (Porcine) 5,000 unit 02/04/23 00:30 02/07/23 13:35 Heparin 5,000 Unit/Ml Inj 1 Ml SUBCUT 5,000 unit Q12H [facility] Administration Meropenem 1,000 mg/ Sodium 50 mls @ 100 mls/hr 02/04/23 00:30 02/07/23 16:55 Chloride IV 100 mls/hr Q8H [facility] Administration Protocol Isosorbide Dinitrate 10 mg 02/04/23 09:00 02/07/23 17:31 Isosorbide Dinitrate 20 Mg Tablet PO 10 mg BID [facility] Administration Metoprolol Tartrate 50 mg 02/04/23 07:00 02/07/23 05:58 Metoprolol Tartrate 50 Mg Tablet PO 50 mg BID@, [facility] Administration Non-Formulary 0 each 02/04/23 19:00 02/07/23 05:57 Medication Vitamin C PO 1 each 500 Mg 0700,1900 [facility] Administration Pantoprazole Sodium 40 mg 02/05/23 08:15 02/07/23 09:24 Pantoprazole 40 Mg Sdv IVP 40 mg Q12H [facility] Administration Sucralfate 1 gm 02/05/23 08:15 02/07/23 09:24 Sucralfate 1 Gm Tablet PO 1 gm Q12H [facility] Administration PFSH Acute PFSH: Medical History (Updated 02/07/23 @ 18:01 by Nnamdi Mayes MD) Acute exacerbation of chronic obstructive pulmonary disease Acute systolic CHF (congestive heart failure) Bacteriuria CAD (coronary artery disease) Cardiogenic shock Cardiomyopathy COPD (chronic obstructive pulmonary disease) Cystitis Dehydration Dyslipidemia Elevated troponin Elevated troponin I level Emphysema lung Essential hypertension Extrinsic ureteral obstruction Fall Heart failure Heart failure, systolic, with acute decompensation Hip pain Hypoxia Lactic acidosis NSTEMI (non-ST elevated myocardial infarction) Peripheral arterial disease Pyuria Respiratory failure with hypoxia and hypercapnia Retained ureteral stent Systolic CHF Tobacco abuse Urinary incontinence UTI (urinary tract infection) Surgical History H/O arthroscopic knee surgery bilateral H/O oral surgery H/O shoulder surgery H/O total hip arthroplasty right H/O: H/O: hysterectomy History of colon surgery Family History Mother , at age 79 Hypertension Peripheral artery disease Diabetes Father , at age 47 Cancer pancreatic and lung Social History Smoking and tobacco status: current some day smoker (quitting) cigarettes Packs smoked per day: 0.5 Years cigarettes smoked: 60 [ Other cigarette details: Hx of 1 PPD x 50 Years] Second hand smoke exposure: Yes Smoking risk assessment/counseling performed?: Yes Alcohol intake: never Substance/Drug Use: never Lives independently: Yes Housing: Apartment Marital status: Legally Current occupational status: retired and disabled Do you think of yourself as: Straight/Heterosexual Current gender identity: Female Vitals/I&O/Wt Last Vital Signs Temp 99.1 F 02/07/23 00:00 Pulse 90 02/07/23 17:28 Resp 23 H 02/07/23 17:28 BP 114/48 02/07/23 17:28 Pulse Ox 90 02/07/23 17:28 O2 Del Method Room Air 02/07/23 17:28 O2 Flow Rate 2 02/06/23 07:50 02/07/23 02/07/23 02/07/23 06:59 14:59 22:59 Intake Total 50 / 850 110 / 110 Output Total 650 / 650 Balance -600 / 200 110 / 110 Physical Exam Const: COMMON NORMALS: no acute distress, alert and well nourished GENERAL APPEARANCE: well kempt and well developed HENMT: COMMON NORMALS: normocephalic HEAD & SCALP: normal to inspection and normocephalic Eye: COMMON NORMALS: no scleral icterus Neck/C-Spine: GENERAL: Yes normal visual inspection Resp: COMMON NORMALS: normal respiratory effort EFFORT & INSPECTION: No Actively coughing Cardio: COMMON NORMALS: regular rate RATE: regular rate GI: COMMON NORMALS: Soft to palpation, non-tender and no masses PALPATION: Yes Soft to palpation : OTHER: Bladder nondistended. No flank tenderness External female genitalia. Normal urethra. No vaginal discharge or prolapse Extremity: OTHER: No joint redness Neuro: SENSORIUM/ORIENTATION: Yes alert Psych: COMMON NORMALS: mental status grossly normal APPEARANCE: Yes grossly normal and Yes well kempt ATTITUDE: Yes calm and Yes engaged Skin: COMMON NORMALS: no jaundice Data 02/08/23 03:07 02/08/23 03:07 A&P Assessment and plan (1) Chronic lower urinary tract infection: (2) Retained ureteral stent: Last replaced in November 2022. Complicated by recurrent ESBL E. coli UTI likely with stent contamination. (3) ESBL (extended spectrum beta-lactamase) producing bacteria infection: (4) Altered mental status: (5) UTI due to extended-spectrum beta lactamase (ESBL) producing Escherichia coli: Plan Reevaluate in the morning for cystoscopy, right ureteral stent change under anesthesia. Coding Level of Care Code [facility] Diagn[facility] Chronic lower urinary tract infection N39.0 Retained ureteral stent Z96.0 ESBL (extended spectrum beta-lactamase) producing bacteria infection A49.9; Z16.12 Altered mental status R41.82 UTI due to extended-spectrum beta lactamase (ESBL) producing Escherichia coli N39.0; B96.29; Z16.12
--- NOTE | 2023-02-07 18:21 | P.PN_ITS ---
Subjective Subjective: States she is doing all right. Denies pain or discomfort. Oriented to place, year but not month. Nurse reports she was somewhat groggy this morning. Vitals/I&O/Wt Last Vital Signs Temp 99.1 F 02/07/23 00:00 Pulse 90 02/07/23 17:28 Resp 23 H 02/07/23 17:28 BP 114/48 02/07/23 17:28 Pulse Ox 90 02/07/23 17:28 O2 Del Method Room Air 02/07/23 17:28 O2 Flow Rate 2 02/06/23 07:50 02/07/23 02/07/23 02/07/23 06:59 14:59 22:59 Intake Total 50 / 850 110 / 110 Output Total 650 / 650 Balance -600 / 200 110 / 110 Physical Exam Const: COMMON NORMALS: alert GENERAL APPEARANCE: cooperative ORIENT ATION/CONSCIOUSNESS: Yes awake and Yes Other orientation findings (Does not remember the month) HENMT: COMMON NORMALS: oropharynx normal Neck/C-Spine: COMMON NORMALS: no JVD Resp: COMMON NORMALS: normal respiratory effort and clear to auscultation bilaterally AUSCULTATION: clear to auscultation bilaterally Cardio: COMMON NORMALS: no JVD, regular rhythm, S1 normal heart sound present, S2 normal heart sound present and No murmurs present (Cardio) RHYTHM: regular rhythm HEART SOUNDS: S1 normal heart sound present and S2 normal heart sound present GI: COMMON NORMALS: Normal to inspection, nondistended, normoactive bowel sounds present, Soft to palpation and non-tender PALPATION: Yes Soft to palpation Extremity: COMMON NORMALS: no joint enlargement and no pedal edema Neuro: COMMON NORMALS: moves all extremities SENSORIUM/ORIENTATION: Yes alert Skin: COMMON NORMALS: no rashes or lesions noted GENERAL SKIN EXAM: no rashes or lesions noted Data 02/07/23 05:48 02/07/23 05:48 A&P Assessment and plan (1) Altered mental status: (2) Elevated troponin: (3) ESBL (extended spectrum beta-lactamase) producing bacteria infection: (4) Urinary incontinence: (5) Dyslipidemia: (6) Retained ureteral stent: (7) Peripheral arterial disease: (8) Heart failure: (9) Essential hypertension: (10) Acute anemia: (11) UTI due to extended-spectrum beta lactamase (ESBL) producing Escherichia coli: Plan #Altered mental status #History of centrilobular emphysema #UTI currently on Invanz #Left nephrolithiasis, right ureteral stent present #Coronary artery disease, multivessel, CABG recommended #COPD #Hypertension #Dyslipidemia #Chronic systolic congestive heart failure #History of peripheral arterial disease #Acute anemia #NSTEMI Acute encephalopathy: Continue treatment of UTI. Stent exchange possibly tomor row. Mentation reportedly improved but is still confused. Stopped anticholinergic ipratropium nebs. Discussing with her son, denies any known history of dementia/cognitive impairment, but does not appear to be oriented to month, and this does not appear to be new, he states it is not usual for her. May have some mild cognitive impairment possibly making her more susceptible to delirium. Appears to be having some hallucinations, seeing black cats with white faces floating around. Acute encephalopathy may be secondary to urinary tract infection, multiple recent hospitalizations/change in location from hospital to senior living and back to hospital again. In case contributing to medication toxicity as above, stop anticholinergics. Discussed with her son may benefit once she is at [facility] from additional as mental for possible underlying mild cognitive impairment. Son states group home memory does not seem to be impaired. Continue treatment of ESBL E. coli UTI. Discussed with her son and with urology. Son understands increased risk with procedure with underlying coronary disease, previously offered CABG but she has not been interested. Additionally with anesthetic contributing to encephalopathy. Other risks. Son understands. Decision to proceed. He is going to discuss further with urology tomorrow morning. Tentatively plan for stent exchange tomorrow. -Patient has recurrent ESBL E. coli UTIs, currently has a PICC line and was on discharged on Invanz -Her urine cultures have shown positive E. coli ESBL since May 2021, she could be a chronic colonizer -However during this hospitalization she was significantly confused, and her mentation improved with hospitalization and meropenem Has a ureteral stent. Additionally discussed with her nurse on right lower lobe some mucus noted on presentation, possibility of developing pneumonia. She denies any respiratory issues denies cough. Speech therapy on board. Mild cough and clear episodes during lunch. Continue aspiration precautions. Continue therapy. ? CT head negative for acute pathology ? Patient troponin 124. 6-hour troponin 124 delta 5.7 ? EKG does shows mild ST depressions in inferior and lateral leads -She does have an extensive cardiovascular history, EF of 35 to 40%, it was recommended for her to have a CABG however she declined she wanted to undergo medical evaluation -She also has severe peripheral vascular disease with right SHIRLEY 0.4 however she declined for any surgical intervention she wants to be medically managed Hemoglobin follow-up 8.8. Recheck CBC requested. ? She also has developed anemia, and 8.4, he is on aspirin, Plavix and would hold her heparin, Hemoccult stool iron studies, repeat CBC maintain hemoglobin greater than 8 given her CAD ? Previous echo shows grade 1 diastolic dysfunction and EF of 35 to 40% ? Continue Protonix, Carafate ? Continue Lopressor 50 twice daily, Imdur 10 twice daily, aspirin Plavix atorvastatin ? Monitor mentation Full code SCDs, heparin SQ twice daily currently on hold for DVT prophylaxis Attestations Medical Necessity Statement*: Continue admission for assessment management of complicated UTI, acute encephalopathy. Diagnoses Altered mental status R41.82 Elevated troponin R77.8 ESBL (extended spectrum beta-lactamase) producing bacteria infection A49.9; Z16.12 Urinary incontinence R32 Dyslipidemia E78.5 Retained ureteral stent Z96.0 Peripheral arterial disease I73.9 Heart failure I50.9 Essential hypertension I10 Acute anemia D64.9 UTI due to extended-spectrum beta lactamase (ESBL) producing Escherichia coli N39.0; B96.29; Z16.12
[2023-02-07] MEDS: atorvastatin 40 mg Tablet PO (18:32)
[2023-02-08] VITALS (16 sets, daily range): BP systolic 96–138; BP diastolic 43–86; PULSE 70–101; RESP 16–24; TEMP 36.1–36.8; O2SAT 93–100
[2023-02-08 04:01] LABS: Basophils % 0.4 %; Eosinophils # 0.1 10^3/uL (0.0-0.8); Eosinophils % 2.6 %; Hematocrit 27.3 % (37.0-47.0); Hemoglobin 8.4 g/dL (11.5-15.3); Lymphocytes # 1.1 10^3/uL (0.8-4.8); Lymphocytes % 22.4 %; Mean Corpuscular HGB Conc 30.8 g/dL (30.0-36.0); Mean Corpuscular Volume 97.5 fl (81-99); Mean Platelet Volume 9.7 fL (7.4-10.4); Monocytes # 0.3 10^3/uL (0.2-0.9); Monocytes % 6.5 %; Neutrophils % 67.5 %; Nucleated Red Blood Cells % 0 %; Platelet Count 225 10^3/cmm (130-400)
[2023-02-08 04:25] LABS: Alanine Aminotransferase 10 U/L (0-33); Albumin Level 2.8 g/dL (3.5-5.2); Alkaline Phosphatase 93 U/L (35-105); Anion Gap 11.2 (5-19); Aspartate Amino Transferase 16 U/L (0-32); Blood Urea Nitrogen 8 mg/dL (8-23); Calcium 8.2 mg/dL (8.5-10.5); Carbon Dioxide 24 mmol/L (22-29); Chloride 109 mmol/L (98-107); Glucose 90 mg/dL (65-115); Osmolality Calculated 290 mOsm/kg (285-295); Potassium 3.2 mmol/L (3.5-5.1); Sodium 141 mmol/L (136-145); Total Bilirubin 0.5 mg/dL (0.15-1.2); Total Protein 5.8 g/dL (6.6-8.7)
[2023-02-08] MEDS: aspirin 81 mg EC Tablet PO (06:23)
[2023-02-08] MEDS: clopidogrel 75 mg Tablet PO (06:23)
[2023-02-08] MEDS: metoprolol tartrate 50 mg Tablet PO ×2 (06:23→18:09)
--- NOTE | 2023-02-08 08:38 | PC.SOCIAL ---
IMM update IMM updated with patient and family. Copy pg 2 provided. Verbalized an understanding. Initialled, dated, timed, and placed in chart.
--- NOTE | 2023-02-08 09:19 | SC_ITS ---
WS: [id number] Exam: C-arm FL for Urology Date/Time of Exam: 02/08/2023 9:19 AM Reason For Exam: ureteral stent placement Single intraoperative AP C-arm image of the right abdomen is submitted. The image depicts a pigtail c atheter in the mid right abdomen. There may be a guidewire or ureteroscope present on the image. Imag e obtained for intraoperative purposes.
--- NOTE | 2023-02-08 09:33 | ANES.PREANE2 ---
Pre-Anesthetic Assessment Height/Weight: Height 1.55 m Weight 58.967 kg Temp Pulse Resp BP Pulse Ox O2 Del Method O2 Flow Rate 97.3 F L 85 16 119/57 95 Room Air 2 02/08/23 09:13 02/08/23 09:13 02/08/23 09:13 02/08/23 09:13 02/08/23 09:13 02/08/23 09:13 02/08/23 08:17 Operation Date: 02/08/23 09:50 Proposed Procedures p Cystoscopy- Right ureteral stent(Right) - Nnamdi Mayes MD Last intake: Intake Last Liquid Date 02/08/23 Last Liquid Time 00:00 Last Solid Date 02/07/23 Last Solid Time 21:00 Social Tobacco Exam alert, oriented x 3, clear to auscultation bilaterally and regular rate & rhythm Airway Mallampati: Class II Dentition: false Pulmonary Chronic Obstructive Pulmonary Disease CV/HEM Anemia, Coronary Artery Disease, Congestive Heart Failure, Hypertension, Myocardial Infarction and Peripheral Vascular Disease echo 01/31 CONCLUSIONS ?LV systolic function is moderately reduced with EF of 35 to 40% ?Grade 1 diastolic dysfunction ?Mild to moderate mitral regurgitation. ?Trace pulmonic regurgitation. ?Compared to prior echocardiogram from 08/2022, no significant ?changes are seen Anesthetic Plan ASA status: 4 Anesthesia: General Risk of > 500 ml blood loss (7ml/kg in children): No Medications/Allergies Home Medications Medication Instructions Recorded Confirmed Last Taken Type fluticasone propionate 50 1 spray intranasal DAILY@07/26/22 02/03/23 02/03/23 History mcg/actuation nasal spray,suspension (Flonase Allergy Relief) nitroglycerin 0.4 mg sublingual 0.4 mg sublingual Q5M PRN chest 10/20/22 02/03/23 Unknown Rx tablet pain #25 tabs ipratropium bromide 21 mcg (0.03 2 spray intranasal TID PRN drainage 01/22/23 02/03/23 Unknown History %) nasal spray ascorbic acid (vitamin C) 500 mg 1,000 mg PO BID@,01/23/23 02/03/23 02/03/23 History tablet (Vitamin C) methenamine hippurate 1 gram tablet 1 g PO BID@,01/23/23 02/03/23 02/03/23 History multivitamin 1 tab PO DAILY@07 01/23/23 02/03/23 02/03/23 History aspirin 81 mg tablet,delayed 81 mg PO DAILY@07 #30 tabs 02/01/23 02/03/23 02/03/23 Rx release atorvastatin 40 mg tablet 40 mg PO BEDTIME@19 #30 tabs 02/01/23 02/03/23 02/02/23 Rx clopidogrel 75 mg tablet 75 mg PO DAILY@07 #30 tabs 02/01/23 02/03/23 02/03/23 Rx ertapenem 1 gram solution for 1 g IV DAILY 14 days #14 ea 02/01/23 02/03/23 02/03/23 Rx injection (Invanz) furosemide 40 mg tablet (Lasix) 20 mg PO DAILY 30 days #30 tabs 02/01/23 02/03/23 Unknown Rx isosorbide dinitrate 10 mg tablet 10 mg PO BID #60 tabs 02/01/23 02/03/23 02/03/23 08:00 Rx metoprolol tartrate 50 mg tablet 50 mg PO BID@07,19 #60 tabs 02/01/23 02/03/23 02/03/23 Rx potassium chloride 10 mEq 10 meq PO DAILY 02/03/23 02/03/23 02/03/23 History tablet,extended release (Klor-Con) Allergies Allergy/AdvReac Type Severity Reaction Status Date / Time meperidine [From Demerol] Allergy Unknown Unknown Verified 01/28/23 14:35 morphine Allergy Unknown Unknown Verified 01/28/23 14:35 Current Medications Generic Name Dose Route Start Last Admin Trade Name Robertq PRN Reason Stop Dose Admin Aspirin 81 mg 02/04/23 07:00 02/08/23 06:23 Aspirin 81 Mg Ec Tablet PO 81 mg DAILY@07 KORTNEY Administration Atorvastatin Calcium 40 mg 02/04/23 19:00 02/07/23 18:32 Atorvastatin 40 Mg Tablet PO 40 mg BEDTIME@19 KORTNEY Administration Clopidogrel Bisulfate 75 mg 02/04/23 07:00 02/08/23 06:23 Clopidogrel 75 Mg Tablet PO 75 mg DAILY@07 KORTNEY Administration Heparin Sodium (Porcine) 5,000 unit 02/04/23 00:30 02/07/23 23:41 Heparin 5,000 Unit/Ml Inj 1 Ml SUBCUT 5,000 unit Q12H KORTNEY Administration Meropenem 1,000 mg/ Sodium 50 mls @ 100 mls/hr 02/04/23 00:30 02/08/23 00:16 Chloride IV Infused Q8H KORTNEY Infusion Protocol Isosorbide Dinitrate 10 mg 02/04/23 09:00 02/07/23 17:31 Isosorbide Dinitrate 20 Mg Tablet PO 10 mg BID KORTNEY Administration Metoprolol Tartrate 50 mg 02/04/23 07:00 02/08/23 06:23 Metoprolol Tartrate 50 Mg Tablet PO 50 mg BID@07,19 KORTNEY Administration Non-Formulary 0 each 02/04/23 19:00 02/08/23 06:23 Medication Vitamin C PO 1 each 500 Mg 0700,1900 KORTNEY Administration Pantoprazole Sodium 40 mg 02/05/23 08:15 02/07/23 19:47 Pantoprazole 40 Mg Sdv IVP 40 mg Q12H KORTNEY Administration Sucralfate 1 gm 02/05/23 08:15 02/07/23 19:47 Sucralfate 1 Gm Tablet PO 1 gm Q12H KORTNEY Administration PFSH Anesthesia Medical History (Updated 02/07/23 @ 18:01 by Nnamdi Mayes MD) Acute exacerbation of chronic obstructive pulmonary disease Acute systolic CHF (congestive heart failure) Bacteriuria CAD (coronary artery disease) Cardiogenic shock Cardiomyopathy COPD (chronic obstructive pulmonary disease) Cystitis Dehydration Dyslipidemia Elevated troponin Elevated troponin I level Emphysema lung Essential hypertension Extrinsic ureteral obstruction Fall Heart failure Heart failure, systolic, with acute decompensation Hip pain Hypoxia Lactic acidosis NSTEMI (non-ST elevated myocardial infarction) Peripheral arterial disease Pyuria Respiratory failure with hypoxia and hypercapnia Retained ureteral stent Systolic CHF Tobacco abuse Urinary incontinence UTI (urinary tract infection) Surgical History H/O arthroscopic knee surgery bilateral H/O oral surgery H/O shoulder surgery H/O total hip arthroplasty right H/O: H/O: hysterectomy History of colon surgery Family History Mother , at age 79 Hypertension Peripheral artery disease Diabetes Father , at age 47 Cancer pancreatic and lung Social History Smoking and tobacco status: current some day smoker (quitting) cigarettes Packs smoked per day: 0.5 Years cigarettes smoked: 60 [ Other cigarette details: Hx of 1 PPD x 50 Years] Second hand smoke exposure: Yes Smoking risk assessment/counseling performed?: Yes Alcohol intake: never Substance/Drug Use: never Lives independently: Yes Housing: Apartment Marital status: Legally Current occupational status: retired and disabled Do you think of yourself as: Straight/Heterosexual Current gender identity: Female Data Anesthesia 02/08/23 03:07 02/08/23 03:07 Short CBC 02/07/23 02/08/23 Range/Units 05:48 03:07 WBC 6.6 5.0 (4.0-10.0) 10^3/uL Hgb 8.9 L 8.4 L (11.5-15.3) g/dL Hct 29.0 L 27.3 L (37.0-47.0) % MCV 98.0 97.5 (81-99) fl Plt Count 237 225 (130-400) 10^3/cmm Neut % (Auto) 81.9 67.5 % Neut # (Auto) 5.38 3.40 (1.8-7.7) 10^3/uL BMP 02/07/23 02/08/23 05:48 03:07 Sodium 140 141 Potassium 3.5 3.2 L Chloride 107 109 H Carbon Dioxide 20 L 24 BUN 8 8 Creatinine 0.8 0.8 Glucose 85 90 Calcium 8.9 8.2 L Liver Function 02/07/23 02/08/23 Range/Units 05:48 03:07 Total Bilirubin 0.5 0.5 (0.15-1.2) mg/dL AST 16 16 (0-32) U/L ALT 12 10 (0-33) U/L Alkaline Phosphatase 94 93 (35-105) U/L Albumin 3.0 L 2.8 L (3.5-5.2) g/dL Cardiac Studies: Echocardiogram 01/23/23 Echocardiogram Limited Views 08/19/22
--- NOTE | 2023-02-08 09:58 | P.OP_ITS ---
Operative Report Date of procedure: February 08, 2023 Pre-op diagnosis: 1. Retained right ureteral stent, chronic 2. Chronic urinary tract infection multidrug-resistant organism. Post-op diagnosis: 1. Retained right ureteral stent, chronic 2. Chronic urinary tract infection multidrug-resistant organism. Procedure done: 1. Cystoscopy with right ureteral stent exchange Implants: 7 [place] by 24 cm double-pigtail stent without string Pathology: None Surgeon: Sugey Estimated blood loss: None Urine output: Not measured Complications: None Findings: Anesthesia: General Condition: Stable Disposition: PACU Intraoperative findings: * No encrustation on the stent but there was a lot of fibrin void material possibly biofilm/infectious debris. * Stent changed easily. Same size placed (7 [place] by 24 cm) Brief History: Mrs. Gerardo is a very pleasant 77-year-old white female with chronic right ureteral stricture managed with chronic indwelling stent and more recently complicated by history of recurrent UTIs with ESBL E. coli. Her last stent change was in November 2022 and since that time she has been treated inpatient with E. coli ESBL x3. It was decided to change the stent to hopefully reduce the bacterial colonization likely to have occurred on the stent since its first placement. She is currently on bacterial specific antibiotic selection. Procedure: After routine preoperative evaluation examination and obtaining of informed consent she was taken to the operating suite on 02/08/2023 where general anesthesia was administered without difficulty after appropriate timeout was performed, SCDs confirmed to be functioning, preoperative antibiotics administered, beta-amado protocol confirmed. Prepped and draped in the usual sterile fashion in dorsolithotomy position pain careful attention to avoiding pressure points. 21 [place] cystoscope with 30 degree lens was introduced into the urethral m eatus and into the bladder without difficulty. The bladder was systematically examined. There is no encrustation on the stent. There was a lot of fibroid material on the stent and sediment in the bladder. No other lesions in the bladder identified. Grasping forceps were then utilized to secure the distal aspect of the stent and it was withdrawn through the meatus and a flexible tip guidewire easily advanced up the stent into the kidney. The cystoscope was then backloaded over the guidewire after the stent was removed and a new stent was placed of the same size without difficulty into appropriate position as confirmed via fluoroscopy and cystoscopy. Tolerated the procedure well without complications and was awakened in the operating room and returned to the recovery room in stable condition PLANS: 1. Continue IV antibiotics 2. Maintain current stent. 3. Follow-up with local or regional urology assets for planning of next stent change in approximately 4 to 6 months. Have reviewed my impending senior care with the patient and her family
--- NOTE | 2023-02-08 10:26 | PC.NURSE ---
to [facility] for cystoscopy at 0905 via [facility].
[2023-02-08] MEDS: meropenem 1,000 MG in sodium chloride 0.9% (plus) 50 ML 100 MG IV ×2 (12:15→19:45)
[2023-02-08] MEDS: sucralfate 1 gm Tablet PO ×2 (12:16→19:42)
[2023-02-08] MEDS: potassium chloride ER 20 mEq Tablet PO (12:17)
[2023-02-08] MEDS: isosorbide dinitrate 20 mg Tablet 10 MG PO ×2 (12:17→18:09)
[2023-02-08] MEDS: pantoprazole 40 mg SDV IVP ×2 (12:18→19:42)
--- NOTE | 2023-02-08 12:29 | PC.OT ---
OT TREATMENT HELD THIS DATE DUE TO SURGERY; WILL ATTEMPT AGAIN TOMORROW.
--- NOTE | 2023-02-08 12:49 | ANE.PACU2 ---
Inpatient post-anesthesia follow up: Airway intact: Yes Vital signs: Temperature 97.0 F Pulse Rate 101 Respiratory Rate 24 Blood Pressure 122/58 Pulse Oximetry 98 Oxygen Delivery Me thod Room Air Oxygen Flow Rate 6 Fraction of Inspir ed Oxygen Hydration adequate: Yes Nausea and vomiting: No Pain level: 1 Mental status: Baseline
[2023-02-08 13:49] LABS: Methicillin-Resist S.aureu PCR NOT DETECTED (NOT DETECTED)
[2023-02-08] MEDS: heparin 5,000 unit/mL INJ 1 mL 5000 UNIT SUBCUT ×2 (14:55→23:44)
--- NOTE | 2023-02-08 16:20 | PC.NURSE ---
return from pacu at 1035 via stretcher.report received.pt is drowsy but easily awakened.vss.anglin catheter had been discontinued in the or.
[2023-02-08] MEDS: atorvastatin 40 mg Tablet PO (18:09)
--- NOTE | 2023-02-08 21:26 | PM.PN ---
Subjective Subjective: She is feeling better today. She is oriented x3. Denies any further visions. Underwent stent replacement, denies pain, no bleeding so far. Discussed with her and her son, they understand may be at risk for both with stent exchange, also with antiplatelet medications. Vitals/I&O/Wt Last Vital Signs Temp 98.2 F 02/08/23 20:00 Pulse 96 02/08/23 20:00 Resp 24 H 02/08/23 20:00 BP 96/43 02/08/23 20:00 Pulse Ox 94 02/08/23 20:00 O2 Del Method Room Air 02/08/23 16:55 O2 Flow Rate 6 02/08/23 10:10 02/08/23 02/08/23 02/08/23 06:59 14:59 22:59 Intake Total 50 / 450 620 / 620 410 / 1030 Output Total 300 / 300 101 / 101 150 / 251 Balance -250 / 150 519 / 519 260 / 779 Physical Exam Narrative: Son at bedside Const: COMMON NORMALS: patient oriented x3 and alert GENERAL APPEARANCE: cooperative OTHER: Pleasant, conversant, in good spirits. HENMT: COMMON NORMALS: oropharynx normal Neck/C-Spine: COMMON NORMALS: no JVD Resp: COMMON NORMALS: normal respiratory effort and clear to auscultation bilaterally AUSCULTATION: clear to auscultation bilaterally Cardio: COMMON NORMALS: no JVD, regular rhythm, S1 normal heart sound present, S2 normal heart sound present and No murmurs present (Cardio) RHYTHM: regular rhythm HEART SOUNDS: S1 normal heart sound present and S2 normal heart sound present GI: COMMON NORMALS: Normal to inspection, nondistended, normoactive bowel sounds present, Soft to palpation and non-tender PALPATION: Yes Soft to palpation Extremity: COMMON NORMALS: no joint enlargement and no pedal edema Neuro: COMMON NORMALS: patient oriented x3 and moves all extremities SENSORIUM/ORIENTATION: Yes alert Skin: COMMON NORMALS: no rashes or lesions noted GENERAL SKIN EXAM: no rashes or lesions noted Data 02/08/23 03:07 02/08/23 03:07 A&P Assessment and plan (1) Altered mental status: (2) Elevated troponin: (3) ESBL (extended spectrum beta-lactamase) producing bacteria infection: (4) Urinary incontinence: (5) Dyslipidemia: (6) Retained ureteral stent: (7) Peripheral arterial disease: (8) Heart failure: (9) Essential hypertension: (10) Acute anemia: (11) UTI due to extended-spectrum beta lactamase (ESBL) producing Escherichia coli: Plan #Altered mental status #History of centrilobular emphysema #UTI currently on Invanz #Left nephrolithiasis, right ureteral stent present #Coronary artery disease, multivessel, CABG recommended #COPD #Hypertension #Dyslipidemia #Chronic systolic congestive heart failure #History of peripheral arterial disease #Acute anemia #NSTEMI Acute encephalopathy: Appears to be improving. Hallucinations so far resolved. Continue treatment of UTI. Stent exchange possibly tomorrow. Possibly improvement with discontinuation of anticholinergic as well. Continue treatment of ESBL E. coli UTI. Status post ureteral stent exchange. Risk of bleeding with stent exchange with antiplatelet medications (needed for CAD). Close monitoring here for now. Continue Carbapenem. Would plan for additional 14 days of antibiotics with follow-up with infectious disease. Hemoglobin noted 8.4. Follow-up CBC. Hypokalemia: Potassium 3.2. Requested replacement. Follow-up BMP, check magnesium level. -Patient has recurrent ESBL E. coli UTIs, currently has a PICC line and was on discharged on Invanz -Her urine cultures have shown positive E. coli ESBL since May 2021, she could be a chronic colonizer -However during this hospitalization she was significantly confused, and her mentation improved with hospitalization and meropenem Has a ureteral stent. Exchanged 02/08. Additionally discussed with her nurse on right lower lobe some mucus noted on presentation, possibility of developing pneumonia. She denies any respiratory issues denies cough. Speech therapy on board. Mild cough and clear episodes during lunch. Continue aspiration precautions. Continue therapy. ? CT head negative for acute pathology ? Patient troponin 124. 6-hour troponin 124 delta 5.7 ? EKG does shows mild ST depressions in inferior and lateral leads -She does have an extensive cardiovascular history, EF of 35 to 40%, it was recommended for her to have a CABG however she declined she wanted to undergo medical evaluation -She also has severe peripheral vascular disease with right SHIRLEY 0.4 however she declined for any surgical intervention she wants to be medically managed ? Previous echo shows grade 1 diastolic dysfunction and EF of 35 to 40% ? Continue Protonix, Carafate ? Continue Lopressor 50 twice daily, Imdur 10 twice daily, aspirin Plavix atorvastatin ? Monitor mentation Full code SCDs, heparin SQ twice daily currently on hold for DVT prophylaxis Attestations Medical Necessity Statement*: Continue admission for assessment management of complicated UTI with ESBL resistant organism and ureteral stent. Discharge planning and arrangements. Diagnoses Altered mental status R41.82 Elevated troponin R77.8 ESBL (extended spectrum beta-lactamase) producing bacteria infection A49.9; Z16.12 Urinary incontinence R32 Dyslipidemia E78.5 Retained ureteral stent Z96.0 Peripheral arterial disease I73.9 Heart failure I50.9 Essential hypertension I10 Acute anemia D64.9 UTI due to extended-spectrum beta lactamase (ESBL) producing Escherichia coli N39.0; B96.29; Z16.12
[2023-02-09] VITALS (8 sets, daily range): BP systolic 100–116; BP diastolic 44–51; PULSE 66–98; RESP 15–23; TEMP 36.8–37.1; O2SAT 92–100
[2023-02-09 03:38] LABS: Basophils % 0.4 %; Eosinophils # 0.1 10^3/uL (0.0-0.8); Eosinophils % 2.5 %; Hematocrit 25.1 % (37.0-47.0); Hemoglobin 7.8 g/dL (11.5-15.3); Lymphocytes # 1.1 10^3/uL (0.8-4.8); Lymphocytes % 20.8 %; Mean Corpuscular HGB Conc 31.1 g/dL (30.0-36.0); Mean Corpuscular Hemoglobin 29.9 pg (28.0-34.0); Mean Corpuscular Volume 96.2 fl (81-99); Mean Platelet Volume 9.9 fL (7.4-10.4); Monocytes # 0.3 10^3/uL (0.2-0.9); Monocytes % 5.8 %; Neutrophils # 3.59 10^3/uL (1.8-7.7); Neutrophils % 69.9 %; Nucleated Red Blood Cells % 0 %; Platelet Count 183 10^3/cmm (130-400); Red Blood Count 2.61 10^6/uL (4.1-5.3); Red Cell Distribution Width 14.9 % (12.1-15.1); White Blood Count 5.1 10^3/uL (4.0-10.0)
[2023-02-09] MEDS: meropenem 1,000 MG in sodium chloride 0.9% (plus) 50 ML 100 MG IV (03:43)
[2023-02-09 04:03] LABS: Anion Gap 10.9 (5-19); Blood Urea Nitrogen 11 mg/dL (8-23); Calcium 8.1 mg/dL (8.5-10.5); Carbon Dioxide 23 mmol/L (22-29); Chloride 111 mmol/L (98-107); Glucose 85 mg/dL (65-115); Magnesium 1.7 mg/dL (1.7-2.3); Osmolality Calculated 291 mOsm/kg (285-295); Potassium 3.9 mmol/L (3.5-5.1); Sodium 141 mmol/L (136-145)
[2023-02-09] MEDS: aspirin 81 mg EC Tablet PO (06:02)
[2023-02-09] MEDS: clopidogrel 75 mg Tablet PO (06:02)
[2023-02-09] MEDS: metoprolol tartrate 50 mg Tablet PO (06:02)
[2023-02-09] MEDS: sucralfate 1 gm Tablet PO (08:25)
[2023-02-09] MEDS: isosorbide dinitrate 20 mg Tablet 10 MG PO (08:25)
[2023-02-09] MEDS: pantoprazole 40 mg SDV IVP (08:26)
--- NOTE | 2023-02-09 09:40 | PC.NURSE ---
Patient leaving CSU to cardiac cath technician at 0942.
--- NOTE | 2023-02-09 10:37 | PM.DCS ---
Discharge Providers Date of Admission: 02/03/23 22:29 Date of Discharge: February 09, 2023 Attending Provider at Admission: Saima Ozuna MD Attending Provider at Discharge: Perry Aguayo Primary Care Provider: Catalino Sanders MD Diagnoses at Discharge Discharge Diagnosis (1) Altered mental status: Status: Acute (2) Elevated troponin: Status: Acute (3) ESBL (extended spectrum beta-lactamase) producing bacteria infection: Status: Acute (4) Urinary incontinence: Status: Acute (5) Dyslipidemia: Status: Acute (6) Retained ureteral stent: Status: Chronic (7) Peripheral arterial disease: Status: Acute (8) Heart failure: Status: Acute (9) Essential hypertension: Status: Acute (10) Acute anemia: Status: Acute (11) UTI due to extended-spectrum beta lactamase (ESBL) producing Escherichia coli: Status: Acute Reason for Visit Reason for Visit: sepsis Hospital Course Hospital Course 77-year-old lady admitted with acute encephalopathy with urinary tract infection, with recurrent ESBL E. coli infection, previously discharged to skilled nurse facility with PICC line on ertapenem therapy, on presentation with dehydration and again with findings of urinary tract infection. She does have a ureteral stent due to chronic ureteral stenosis, this was most recently exchanged in November. Since then she has had several admissions with finding of ESBL E. coli UTI. She was recently also assessed by cardiology after NSTEMI with recommendation for CABG, which she had declined. Additionally has severe PVD, right leg SHIRLEY 0.4. Has not been wanting any surgical intervention. While in the hospital received treatment with meropenem, ureteral stent was exchanged 02/08. Has been doing well subsequently. Acute encephalopathy which was transiently also complained by mild hallucinations has resolved with treatment of UTI and discontinuation of DuoNeb. While in hospital stay received gentle IV hydration. Avoid anticholinergic or other medications that may affect mental status. At discharge she will continue ertapenem for additional 14-day course via the PICC line she already has. No sign of line infection, blood cultures remaining negative. She is asked to follow-up with infectious disease. She will need to follow-up in 4-6 weeks with closest urology service with regards to her issues including ureteral stricture and stent exchange. Please follow-up also normocytic anemia, Hemoccult was tested in the hospital and negative. She is noted to have ACD + iron deficiency and is started on iron replacement. Please visit with her regarding further evaluation, possibly with endoscopy depending on her goals of care. Please follow-up blood counts on Monday, consider referral for transfusion in case further decrease. Discharge Data Studies Completed and Pending Completed Studies During Hospitalization Category [place] [id number] Urgent Cat Scan 02/04/23 00:[address] head wo con* [id number] Stat Cat Scan 02/03/23 20:10 Completed XR chest 1V portable [id number] Stat Exams 02/03/23 17:34 Completed Pending at discharge Category Date Time Status C-arm FL for Urology Routine Exams 02/08/23 09:19 Taken Basic Metabolic Panel AM LABS Lab 02/10/23 04:00 Ordered Basic Metabolic Panel AM LABS Lab 02/11/23 04:00 Ordered Sputum Culture and Gram Stain Stat Lab 02/04/23 00:25 Uncollected Radiology Impressions Chest X-Ray 02/03/23 17:34 IMPRESSION: 1. No acute cardiopulmonary process. 2. Incidental/nonacute findings are listed in the report. Head CT 02/03/23 20:10 IMPRESSION: 1. No acute abnormality of the brain. 2. Stable moderate atrophy of the brain parenchyma. 3. Stable mild chronic white matter microangiopathic change. 4. Incidental/nonacute findings are listed in the report. Chest/Abdomen/Pelvis CT 02/04/23 00:27 IMPRESSION: Right lower lobe endobronchial secretions and atelectasis changes are new from comparison. Cannot exclude aspiration. IMPRESSION: Negative for acute abdominopelvic pathology. Laboratory Results WBC 5.1 10^3/uL (4.0-10.0) 02/09/23 03:15 RBC 2.61 10^6/uL (4.1-5.3) L 02/09/23 03:15 Hgb 7.8 g/dL (11.5-15.3) L 02/09/23 03:15 Hct 25.1 % (37.0-47.0) L 02/09/23 03:15 MCV 96.2 fl (81-99) 02/09/23 03:15 MCH 29.9 pg (28.0-34.0) 02/09/23 03:15 MCHC 31.1 g/dL (30.0-36.0) 02/09/23 03:15 RDW 14.9 % (12.1-15.1) 02/09/23 03:15 Plt Count 183 10^3/cmm (130-400) 02/09/23 03:15 MPV 9.9 fL (7.4-10.4) 02/09/23 03:15 Neut % (Auto) 69.9 % 02/09/23 03:15 Lymph % (Auto) 20.8 % 02/09/23 03:15 [place] % (Auto) 5.8 % 02/09/23 03:15 Eos % (Auto) 2.5 % 02/09/23 03:15 Baso % (Auto) 0.4 % 02/09/23 03:15 Neut # (Auto) 3.59 10^3/uL (1.8-7.7) 02/09/23 03:15 Lymph # (Auto) 1.1 10^3/uL (0.8-4.8) 02/09/23 03:15 [place] # (Auto) 0.3 10^3/uL (0.2-0.9) 02/09/23 03:15 Eos # (Auto) 0.1 10^3/uL (0.0-0.8) 02/09/23 03:15 Baso # (Auto) 0.0 10^3/uL (0.0-0.1) 02/09/23 03:15 Nucleated RBC % (auto) 0 % 02/09/23 03:15 Nucleated RBCs # 0.0 /100WBC 02/09/23 03:15 PT 13.50 SECONDS (12.1-14.9) 02/03/23 17:42 INR 1.00 (0.8-1.2) 02/03/23 17:42 Specimen Type Arterial 02/04/23 01:00 Sample Site Radial, left 02/04/23 01:00 ABG pH 7.46 (7.35-7.45) H 02/04/23 01:00 ABG pCO2 34.8 mmHg (35-45) L 02/04/23 01:00 ABG pO2 61.1 mmHg (80.0-100.0) L 02/04/23 01:00 ABG HCO3 24.8 mmol/L (22-26) 02/04/23 01:00 ABG O2 Saturation 93.7 02/04/23 01:00 ABG Base Excess 1.1 mmol/L (-2.0-2.0) 02/04/23 01:00 Roby Test Pos 02/04/23 01:00 A-a O2 Gradient 5.9 mmHg (5-10) 02/04/23 01:00 Hematocrit 27.7 % (37-47) L 02/04/23 01:00 Hgb O2 Saturation 92.1 % (95-100) L 02/04/23 01:00 Carboxyhemoglobin 1.4 %THgb (0.4-20.1) 02/04/23 01:00 Methemoglobin 0.3 % (0.4-1.5) L 02/04/23 01:00 Total Hemoglobin 9.1 g/dL (12-16) L 02/04/23 01:00 Sodium 143.0 mmol/L (131-143) 02/04/23 01:00 Potassium 3.3 mmol/L (3.5-5.0) L 02/04/23 01:00 Glucose 94.0 mg/dL (70-115) 02/04/23 01:00 Ionized Calcium 1.2 mmol/L (1.1-1.4) 02/04/23 01:00 O2 Delivery Device Nc 02/04/23 01:00 O2 Liters/Min 2.5 % 02/04/23 01:00 Financial Services Representative ID [email or web address] 02/04/23 01:00 Sodium 141 mmol/L (136-145) 02/09/23 03:15 Potassium 3.9 mmol/L (3.5-5.1) 02/09/23 03:15 Chloride 111 mmol/L (98-107) H 02/09/23 03:15 Carbon Dioxide 23 mmol/L (22-29) 02/09/23 03:15 Anion Gap 10.9 (5-19) 02/09/23 03:15 BUN 11 mg/dL (8-23) 02/09/23 03:15 Creatinine 0.9 mg/dL (0.5-0.9) 02/09/23 03:15 GFR Calculation Not Reportable 02/09/23 03:15 Glucose 85 mg/dL (65-115) 02/09/23 03:15 POC Glucose 108 mg/dL (70-110) 02/03/23 17:55 Calculated Osmolality 291 mOsm/kg (285-295) 02/09/23 03:15 Lactic Acid Cancelled 02/04/23 00:52 Lactic Acid (Sepsis) Cancelled 02/04/23 06:33 Lactate 0.6 mmol/L (0.5-2.2) 02/04/23 08:01 Calcium 8.1 mg/dL (8.5-10.5) L 02/09/23 03:15 Magnesium 1.7 mg/dL (1.7-2.3) 02/09/23 03:15 Iron 24 ug/dL (37-145) L 02/05/23 03:52 TIBC 185 mcg/dl 02/05/23 03:52 % Saturation 12.9 % (20-50) L 02/05/23 03:52 Unsat Iron Binding 161 ug/dL (112-347) 02/05/23 03:52 Ferritin 204 ng/mL (15-150) H 02/05/23 03:52 Total Bilirubin 0.5 mg/dL (0.15-1.2) 02/08/23 03:07 AST 16 U/L (0-32) 02/08/23 03:07 ALT 10 U/L (0-33) 02/08/23 03:07 Alkaline Phosphatase 93 U/L (35-105) 02/08/23 03:07 Ammonia 17 umol/L (11-51) 02/04/23 00:52 Troponin T Gen 5 ng/L 124 ng/L (0-10) H* 02/03/23 17:42 Troponin T Baseline 119 ng/L (0-10) H* 02/04/23 10:56 Troponin T 120 Minute 120.8 ng/L (0-10) H 02/04/23 12:52 Delta Troponin T 1.8 ABS# (0-10) 02/04/23 12:52 Troponin T Hi Sens 6Hr 124.7 ng/L (0-10) H 02/04/23 16:50 Troponin T Hi Sens 6Hr Delta 5.7 ng/L (0-12) 02/04/23 16:50 C-Reactive Protein 99.9 mg/L (0.0-4.9) H 02/04/23 10:56 Total Protein 5.8 g/dL (6.6-8.7) L 02/08/23 03:07 Albumin 2.8 g/dL (3.5-5.2) L 02/08/23 03:07 Globulin 3.0 g/dL (1.3-4.6) 02/08/23 03:07 Vitamin B12 277 pg/mL (232-1245) 02/04/23 00:52 Procalcitonin 0.64 ng/mL (0-0.5) H 02/04/23 00:52 TSH 1.64 uIU/mL (0.27-4.20) 02/04/23 00:52 Urine Color Yellow (Yellow) 02/03/23 18:54 Urine Appearance Hazy (CLEAR) A 02/03/23 18:54 Urine pH 6 (5-7) 02/03/23 18:54 Ur Specific [place] 1.030 (1.005-1.030) 02/03/23 18:54 Urine Protein 1+ (Negative) H 02/03/23 18:54 Urine Glucose (UA) Trace (Normal) H 02/03/23 18:54 Urine Ketones Negative (Negative) 02/03/23 18:54 Urine Blood Neg (Negative) 02/03/23 18:54 Urine Nitrate Positive (Negative) H 02/03/23 18:54 Urine Bilirubin Neg (Negative) 02/03/23 18:54 Urine Urobilinogen Norm mg/dL (Negative) 02/03/23 18:54 Ur Leukocyte Esterase 2+ (Negative) H 02/03/23 18:54 Urine RBC 0-4 /hpf (0-2) H 02/03/23 18:54 Urine WBC 10-15 /hpf (0-5) H 02/03/23 18:54 Ur Squamous Epith Cells 15-25 /hpf (0-5) H 02/03/23 18:54 Amorphous Sediment Not Reportable 02/03/23 18:54 Urine Bacteria 4+ /hpf (NONE) H 02/03/23 18:54 Vancomycin Trough 13.8 ug/mL (10-15) 02/06/23 23:27 MRSA (PCR) Not detected (NOT DETECTED) 02/06/23 16:14 Vitals Last Vital Signs Temp 98.3 F 02/09/23 04:12 Pulse 82 02/09/23 08:23 Resp 16 02/09/23 08:23 BP 113/50 02/09/23 07:50 Pulse Ox 97 02/09/23 08:23 O2 Del Method Room Air 02/09/23 08:23 O2 Flow Rate 6 02/08/23 10:10 Discharge Plan Discharge Patient Disposition: Xfer SNF Condition: Stable Prescriptions: New ferrous sulfate 325 mg (65 mg iron) tablet,delayed release (DR/EC) 325 mg PO EVERY OTHER DAY Qty: 90 0RF Continued nitroglycerin 0.4 mg tablet, sublingual 0.4 mg sublingual Q5M PRN (Reason: chest pain) Qty: 25 3RF Rx Instructions: do not exceed 3 doses per episode fluticasone propionate [Flonase Allergy Relief] 50 mcg/actuation spray,suspension 1 spray intranasal DAILY@07 Rx Instructions: administer into each nostril multivitamin Tablet 1 tab PO DAILY@07 ascorbic acid (vitamin C) [Vitamin C] 500 mg Tablet 1,000 mg PO BID@ methenamine hippurate 1 gram tablet 1 g PO BID@ Rx Instructions: Take 1000 mg of Vitamin C with each dose of Methenamine Klor-Con 10 10 mEq Tablet Extended Release 10 meq PO DAILY Invanz 1 gram recon soln 1 g IV DAILY 14 Days Qty: 14 0RF Rx Instructions: last dose 02/15/23 isosorbide dinitrate 10 mg tablet 10 mg PO BID Qty: 60 0RF Rx Instructions: allow nitrate-free interval of 12-14 hrs per 24-hr period atorvastatin 40 mg tablet 40 mg PO BEDTIME@ Qty: 30 0RF clopidogrel 75 mg tablet 75 mg PO DAILY@07 Qty: 30 0RF aspirin 81 mg Tablet,Delayed Release (Dr/Ec) 81 mg PO DAILY@07 Qty: 30 0RF metoprolol tartrate 50 mg tablet 50 mg PO BID@ Qty: 60 0RF Changed furosemide [Lasix] 40 mg tablet 20 mg PO DAILY PRN (Reason: Edema) 30 Days Qty: 30 1RF Rx Instructions: *medication has been on hold for 2 weeks as of 01/23/23 per pt* Discontinued ipratropium bromide 21 mcg (0.03 %) spray,non-aerosol 2 spray INTRANASAL TID PRN (Reason: drainage) Discharge Orders: Discharge Order (Routine); Ordered 02/09/23 Ordered By: Perry Aguayo Referrals: [facility] [Provider Group] - 2 weeks (Recurrent ESBL UTI, ureteral stent) [facility] [Provider Group] (4-6 months. Ureteral stent exchange.) [facility] [Outside] Catalino Sanders MD [Primary Care Provider] - 4-7 days Patient Instructions: Ertapenem (By injection), Urinary Tract Infection in Women (GEN), Extended Spectrum Beta-Lactamase (GEN), Anemia (GEN), Ureteral Stent Placement (GEN) Activity Restrictions/Additional Instructions: Continue antibiotic for additional 2 weeks. Follow-up with infectious disease for ESBL E. coli recurrent UTI with presence of ureteral stent. Follow-up with local or regional urology assets for planning of next stent change in approximately 4 to 6 months. Follow-up CBC on Monday, in case hemoglobin further decreasing consider referral for transfusion. Discharge Attestations Time Spent in Discharge Care*: greater than 30 min Quality Metrics Clinical Quality Measures [ No reported AMI, CVA or VTE this stay] Coding Level of Care Code Acute Code for Chg Fwd Diagnoses Altered mental status R41.82 Elevated troponin R77.8 ESBL (extended spectrum beta-lactamase) producing bacteria infection A49.9; Z16.12 Urinary incontinence R32 Dyslipidemia E78.5 Retained ureteral stent Z96.0 Peripheral arterial disease I73.9 Heart failure I50.9 Essential hypertension I10 Acute anemia D64.9 UTI due to extended-spectrum beta lactamase (ESBL) producing Escherichia coli N39.0; B96.29; Z16.12
[2023-02-09] MEDS: ertapenem 1,000 MG in sodium chloride 0.9% (plus) 100 ML 200 MG IV (10:51)
[2023-02-09 12:32] LABS: SARS Covid-2 Antigen negative (Negative)
[2023-02-09] MEDS: heparin 5,000 unit/mL INJ 1 mL 5000 UNIT SUBCUT (13:07)
== END 2023-02-09 13:29 | disposition skilled nursing facility (03) | DRG 659 ==
LOC: ER 22:42 → CSU 22:48
PROVIDERS: Family Medicine; Urology; Admitting Provider Internal Medicine; Emergency Provider Family Medicine; PCP Family Medicine; Visit Provider Internal Medicine
PROC: 0TJB8ZZ Inspection of Bladder, Via Natural or Artificial Opening Endoscopic (ICD-10-PCS; CPT 52000; principal; 2023-02-08 09:30)
PROC: 0T768DZ Dilation of Right Ureter with Intraluminal Device, Via Natural or Artificial Opening Endoscopic (ICD-10-PCS; 2023-02-08 09:30)
DX: N39.0 Urinary tract infection, site not specified (principal); G93.41 Metabolic encephalopathy; I21.4 Non-ST elevation (NSTEMI) myocardial infarction; Z16.12 Extended spectrum beta lactamase (ESBL) resistance; I50.22 Chronic systolic (congestive) heart failure; I42.9 Cardiomyopathy, unspecified; B96.20 Unspecified Escherichia coli [E. coli] as the cause of diseases classified elsewhere; E86.0 Dehydration; Z96.0 Presence of urogenital implants; I25.2 Old myocardial infarction; I73.9 Peripheral vascular disease, unspecified; D50.9 Iron deficiency anemia, unspecified; Z79.02 Long term (current) use of antithrombotics/antiplatelets; Z79.82 Long term (current) use of aspirin; J43.2 Centrilobular emphysema; I25.10 Atherosclerotic heart disease of native coronary artery without angina pectoris; E78.5 Hyperlipidemia, unspecified; I10 Essential (primary) hypertension; F17.210 Nicotine dependence, cigarettes, uncomplicated; Z96.641 Presence of right artificial hip joint
CPT/HCPCS: 36415; 36416; 36592; 36600; 51798; 70450; 71045; 71250; 74176; 76000; 80048; 80051; 80053; 80202; 81001; 82140; 82274; 82330; 82607; 82728; 82805; 82962; 83540; 83550; 83605; 83735; 84145; 84443; 84484; 85025; 85610; 86140; 87040; 87426; 87641; 92507; 92523; 92526; 92610; 93005; 94640; 94664; 96372; 96376; 97116; 97161; 97165; 97530; 97535; 99285; C1874; C9113; J1335; J1644; J2185; J2370; J2405; J2704; J3370; J3480; J7030; J7050

== ENCOUNTER 2023-02-21 18:19 | Inpatient (IN) | payer MEDICARE, MEDICAID, SELFPAY ==
[2023-02-21] VITALS (8 sets, daily range): BP systolic 110–122; BP diastolic 49–66; PULSE 71–98; RESP 16–19; TEMP 36.4–36.8; O2SAT 92–98; BMI 20.4
--- NOTE | 2023-02-21 18:51 | W.ED.GIBLEED ---
HPI - GI Bleed General: Chief complaint: GI Bleed Stated complaint: GI Bleed Time Seen by Provider: 02/21/23 18:20 Source: patient Mode of arrival: ambulatory Limitations: no limitations History of Present Illness: 77-year-old female is here from alf they state over the last 3 days she has had some darker stools that was tarry in nature. He states that her hemoglobin is dropped from the nines to the sevens and there she had some slight weakness her blood pressure here is normal she is on multiple chronic diseases. She denies any pain anywhere denies any vomiting or diarrhea. Associated symptoms: Denies abdominal pain, chills, fever(s), headache(s), nausea, rash or vomiting Review of Systems Const: Denies: fever(s), chills, body aches or change in appetite ENMT: Denies: throat pain or dental pain Card: Denies: chest pain Resp: Denies: dyspnea GI: Reports: hematochezia and melena; Denies: abdominal pain, nausea, vomiting or diarrhea Musc: Denies: neck pain or back pain Skin/Breast: Denies: rash Neuro: Denies: headache(s) PFSH ED PFSH: Medical History Acute exacerbation of chronic obstructive pulmonary disease Acute systolic CHF (congestive heart failure) Bacteriuria CAD (coronary artery disease) Cardiogenic shock Cardiomyopathy COPD (chronic obstructive pulmonary disease) Cystitis Dehydration Dyslipidemia Elevated troponin Elevated troponin I level Emphysema lung Essential hypertension Extrinsic ureteral obstruction Fall Heart failure Heart failure, systolic, with acute decompensation Hip pain Hypoxia Lactic acidosis NSTEMI (non-ST elevated myocardial infarction) Peripheral arterial disease Pyuria Respiratory failure with hypoxia and hypercapnia Retained ureteral stent Systolic CHF Tobacco abuse Urinary incontinence UTI (urinary tract infection) Surgical History H/O arthroscopic knee surgery bilateral H/O oral surgery H/O shoulder surgery H/O total hip arthroplasty right H/O: H/O: hysterectomy History of colon surgery Family History Mother , at age 79 Hypertension Peripheral artery disease Diabetes Father , at age 47 Cancer pancreatic and lung Social History Smoking and tobacco status: current some day smoker (quitting) cigarettes Packs smoked per day: 0.5 Years cigarettes smoked: 60 [ Other cigarette details: Hx of 1 PPD x 50 Years] Second hand smoke exposure: Yes Smoking risk assessment/counseling performed?: Yes Alcohol intake: never Substance/Drug Use: never Lives independently: Yes Housing: Apartment Marital status: Legally Current occupational status: retired and disabled Do you think of yourself as: Straight/Heterosexual Current gender identity: Female Physical Exam Const: COMMON NORMALS: patient oriented x3 HENMT: COMMON NORMALS: normocephalic and atraumatic HEAD & SCALP: normocephalic and atraumatic Eye: COMMON NORMALS: Equal, round and reactive pupils present and EOMs intact bilaterally PUPIL: Yes Equal, round and reactive pupils present Neck/C-Spine: COMMON NORMALS: full ROM and supple Chest: COMMONS NORMALS: normal inspection of the chest and normal palpation of entire chest wall Resp: COMMON NORMALS: normal respiratory effort, No retractions, No use of accessory muscles and clear to auscultation bilaterally AUSCULTATION: clear to auscultation bilaterally Cardio: COMMON NORMALS: regular rate, regular rhythm and No murmurs present (Cardio) RATE: regular rate RHYTHM: regular rhythm GI: COMMON NORMALS: Normal to inspection, nondistended, normoactive bowel sounds present, Soft to palpation, non-tender and no masses PALPATION: Yes Soft to palpation : OTHER: Rectal exam shows brown stool that is Hemoccult positive Extremity: COMMON NORMALS: normal to inspection and full ROM Neuro: COMMON NORMALS: patient oriented x3, moves all extremities and no focal motor deficits Psych: COMMON NORMALS: mental status grossly normal, Normal thought process present and cooperative THOUGHT PROCESS: Normal thought process present Skin: COMMON NORMALS: no rashes or lesions noted and no wounds GENERAL SKIN EXAM: no rashes or lesions noted Course Vital Signs: Vital signs: Vital Signs Temperature 98.3 F 02/21/23 18:24 Pulse Rate 95 02/21/23 18:24 Respiratory Rate 18 02/21/23 18:24 Blood Pressure 110/49 02/21/23 18:24 Pulse Oximetry 98 02/21/23 18:24 Oxygen Delivery Me thod Room Air 02/21/23 18:24 MDM - GI Bleed Medical Decision Making Patient presents here with upper GI bleed she has no signs of large amount of bleeding here blood pressure here is normal she is anemic I spoke to the hospitalist along with surgeon will admit at this time we will transfuse here. Medical Records I reviewed the patient's medical records. Lab Data I reviewed the patient's lab results. 02/21/23 18:50 02/21/23 18:50 Laboratory Results WBC 3.8 10^3/uL (4.0-10.0) L 02/21/23 18:50 RBC 2.17 10^6/uL (4.1-5.3) L 02/21/23 18:50 Hgb 6.4 g/dL (11.5-15.3) L* 02/21/23 18:50 Hct 21.6 % (37.0-47.0) L 02/21/23 18:50 MCV 99.5 fl (81-99) H 02/21/23 18:50 MCH 29.5 pg (28.0-34.0) 02/21/23 18:50 MCHC 29.6 g/dL (30.0-36.0) L 02/21/23 18:50 RDW 15.8 % (12.1-15.1) H 02/21/23 18:50 Plt Count 238 10^3/cmm (130-400) 02/21/23 18:50 MPV 9.9 fL (7.4-10.4) 02/21/23 18:50 Neut % (Auto) 47.5 % 02/21/23 18:50 Lymph % (Auto) 37.0 % 02/21/23 18:50 [place] % (Auto) 8.1 % 02/21/23 18:50 Eos % (Auto) 5.8 % 02/21/23 18:50 Baso % (Auto) 1.3 % 02/21/23 18:50 Neut # (Auto) 1.81 10^3/uL (1.8-7.7) 02/21/23 18:50 Lymph # (Auto) 1.4 10^3/uL (0.8-4.8) 02/21/23 18:50 [place] # (Auto) 0.3 10^3/uL (0.2-0.9) 02/21/23 18:50 Eos # (Auto) 0.2 10^3/uL (0.0-0.8) 02/21/23 18:50 Baso # (Auto) 0.1 10^3/uL (0.0-0.1) 02/21/23 18:50 Nucleated RBC % (auto) 0 % 02/21/23 18:50 Nucleated RBCs # 0.0 /100WBC 02/21/23 18:50 PT 14.30 SECONDS (12.1-14.9) 02/21/23 18:50 INR 1.08 (0.8-1.2) 02/21/23 18:50 Sodium 146 mmol/L (136-145) H 02/21/23 18:50 Potassium 3.5 mmol/L (3.5-5.1) 02/21/23 18:50 Chloride 110 mmol/L (98-107) H 02/21/23 18:50 Carbon Dioxide 24 mmol/L (22-29) 02/21/23 18:50 Anion Gap 15.5 (5-19) 02/21/23 18:50 BUN 21 mg/dL (8-23) 02/21/23 18:50 Creatinine 1.0 mg/dL (0.5-0.9) H 02/21/23 18:50 GFR Calculation Not Reportable 02/21/23 18:50 Glucose 99 mg/dL (65-115) 02/21/23 18:50 Calculated Osmolality 305 mOsm/kg (285-295) H 02/21/23 18:50 Calcium 8.7 mg/dL (8.5-10.5) 02/21/23 18:50 Total Bilirubin 0.2 mg/dL (0.15-1.2) 02/21/23 18:50 AST 12 U/L (0-32) 02/21/23 18:50 ALT 6 U/L (0-33) 02/21/23 18:50 Alkaline Phosphatase 108 U/L (35-105) H 02/21/23 18:50 Total Protein 5.9 g/dL (6.6-8.7) L 02/21/23 18:50 Albumin 3.5 g/dL (3.5-5.2) 02/21/23 18:50 Globulin 2.4 g/dL (1.3-4.6) 02/21/23 18:50 Blood Type O Positive 02/21/23 18:50 Rho(D) Type Positive 02/21/23 18:50 Antibody Screen Negative 02/21/23 18:50 Crossmatch See Detail 02/21/23 18:50 Discharge Plan Discharge Patient Disposition: Admitted As Inpatient Clinical Impression: Upper gastrointestinal hemorrhage, Acute anemia Condition: Stable Prescriptions: No Action nitroglycerin 0.4 mg tablet, sublingual 0.4 mg sublingual Q5M PRN (Reason: chest pain) Qty: 25 3RF Rx Instructions: do not exceed 3 doses per episode fluticasone propionate [Flonase Allergy Relief] 50 mcg/actuation spray,suspension 1 spray intranasal DAILY@07 Rx Instructions: administer into each nostril multivitamin Tablet 1 tab PO DAILY@ ascorbic acid (vitamin C) [Vitamin C] 500 mg Tablet 1,000 mg PO BID@ methenamine hippurate 1 gram tablet 1 g PO BID@ Rx Instructions: Take 1000 mg of Vitamin C with each dose of Methenamine Klor-Con 10 10 mEq Tablet Extended Release 10 meq PO DAILY Lasix 40 mg tablet 20 mg PO DAILY PRN (Reason: Edema) 30 Days Qty: 30 1RF Rx Instructions: *medication has been on hold for 2 weeks as of 01/23/23 per pt* ferrous sulfate 325 mg (65 mg iron) tablet,delayed release (DR/EC) 325 mg PO EVERY OTHER DAY Qty: 90 0RF isosorbide dinitrate 10 mg tablet 10 mg PO BID Qty: 60 0RF Rx Instructions: allow nitrate-free interval of 12-14 hrs per 24-hr period atorvastatin 40 mg tablet 40 mg PO BEDTIME@ Qty: 30 0RF clopidogrel 75 mg tablet 75 mg PO DAILY@ Qty: 30 0RF aspirin 81 mg Tablet,Delayed Release (Dr/Ec) 81 mg PO DAILY@ Qty: 30 0RF metoprolol tartrate 50 mg tablet 50 mg PO BID@ Qty: 60 0RF Referrals: Catalino Sanders MD [Primary Care Provider] - Coding Level of Care Code ED [employer] for Isi Calhoun
[2023-02-21 19:04] LABS: Basophils # 0.1 10^3/uL (0.0-0.1); Basophils % 1.3 %; Eosinophils # 0.2 10^3/uL (0.0-0.8); Eosinophils % 5.8 %; Hematocrit 21.6 % (37.0-47.0); Lymphocytes # 1.4 10^3/uL (0.8-4.8); Mean Corpuscular HGB Conc 29.6 g/dL (30.0-36.0); Mean Corpuscular Hemoglobin 29.5 pg (28.0-34.0); Mean Corpuscular Volume 99.5 fl (81-99); Mean Platelet Volume 9.9 fL (7.4-10.4); Monocytes # 0.3 10^3/uL (0.2-0.9); Monocytes % 8.1 %; Neutrophils # 1.81 10^3/uL (1.8-7.7); Neutrophils % 47.5 %; Nucleated Red Blood Cells % 0 %; Platelet Count 238 10^3/cmm (130-400); Red Blood Count 2.17 10^6/uL (4.1-5.3); Red Cell Distribution Width 15.8 % (12.1-15.1); White Blood Count 3.8 10^3/uL (4.0-10.0)
--- NOTE | 2023-02-21 19:05 | PC.NURSE ---
REPORT GIVEN TO CACHORRO SANCHEZ ASSUMED CARE.
[2023-02-21 19:17] LABS: INR 1.08 (0.8-1.2)
[2023-02-21 19:23] LABS: Hemoglobin 6.4 g/dL (11.5-15.3)
[2023-02-21 19:39] LABS: Alanine Aminotransferase 6 U/L (0-33); Albumin Level 3.5 g/dL (3.5-5.2); Alkaline Phosphatase 108 U/L (35-105); Anion Gap 15.5 (5-19); Aspartate Amino Transferase 12 U/L (0-32); Blood Urea Nitrogen 21 mg/dL (8-23); Calcium 8.7 mg/dL (8.5-10.5); Carbon Dioxide 24 mmol/L (22-29); Chloride 110 mmol/L (98-107); Globulin 2.4 g/dL (1.3-4.6); Glucose 99 mg/dL (65-115); Osmolality Calculated 305 mOsm/kg (285-295); Potassium 3.5 mmol/L (3.5-5.1); Sodium 146 mmol/L (136-145); Total Bilirubin 0.2 mg/dL (0.15-1.2); Total Protein 5.9 g/dL (6.6-8.7)
[2023-02-21] MEDS: sodium chloride 0.9% 100 mL Bag 50 ML IV (20:36)
[2023-02-21] MEDS: pantoprazole 40 mg SDV 80 MG IVP (20:36)
--- NOTE | 2023-02-21 21:33 | P.HP_ITS ---
Providers/Chief Complaint Admitting Physician: Mar Roman MD Primary Care Provider: Catalino Sanders MD Chief Complaint: GI Bleed History of Present Illness Denia Gerardo is a 77 year old female with h/o COPD, CHF, right ureteral stent, HTN, peripheral arterial disease, chronic anemia was sent from the custodial for c/o weakness and found to have black tarry stools for last 3 days. She denies any chest pain, abdominal pain or urinary complaints. never had similar complaints in the past. She has h/o chromic anemia, Hb 8-9, but in ER she was found to be hemocult positive and Hb was 6.4. Review of Systems Const: Denies: fever(s), chills, body aches or change in appetite ENMT: Denies: throat pain or dental pain Card: Denies: chest pain Resp: Denies: dyspnea GI: Reports: hematochezia and melena; Denies: abdominal pain, nausea, vomiting or diarrhea Musc: Denies: neck pain or back pain Skin/Breast: Denies: rash Neuro: Denies: headache(s) Medications/Allergies Home Medications Medication Instructions Recorded Confirmed Last Taken Type fluticasone propionate 50 1 spray intranasal DAILY@07/26/22 02/03/23 02/03/23 History mcg/actuation nasal spray,suspension (Flonase Allergy Relief) nitroglycerin 0.4 mg sublingual 0.4 mg sublingual Q5M PRN chest 10/20/22 02/03/23 Unknown Rx tablet pain #25 tabs ascorbic acid (vitamin C) 500 mg 1,000 mg PO BID@01/23/23 02/03/23 0 02/03/23 History tablet (Vitamin C) methenamine hippurate 1 gram tablet 1 g PO BID@,01/23/23 02/03/23 02/03/23 History multivitamin 1 tab PO DAILY@01/23/23 02/03/23 02/03/23 History aspirin 81 mg tablet,delayed 81 mg PO DAILY@ #30 tabs 02/01/23 02/03/23 02/03/23 Rx release atorvastatin 40 mg tablet 40 mg PO BEDTIME@ #30 tabs 02/01/23 02/03/23 02/02/23 Rx clopidogrel 75 mg tablet 75 mg PO DAILY@ #30 tabs 02/01/23 02/03/23 02/03/23 Rx isosorbide dinitrate 10 mg tablet 10 mg PO BID #60 tabs 02/01/23 02/03/23 02/03/23 08:00 Rx metoprolol tartrate 50 mg tablet 50 mg PO BID@07,19 #60 tabs 02/01/23 02/03/23 02/03/23 Rx potassium chloride 10 mEq 10 meq PO DAILY 02/03/23 02/03/23 02/03/23 History tablet,extended release (Klor-Con) ferrous sulfate 325 mg (65 mg 325 mg PO EVERY OTHER DAY #90 tabs 02/09/23 Unknown Rx iron) tablet,delayed release furosemide 40 mg tablet (Lasix) 20 mg PO DAILY PRN Edema 30 days 02/09/23 02/03/23 Unknown Rx #30 tabs Allergies Allergy/AdvReac Type Severity Reaction Status Date / Time meperidine [From Demerol] Allergy Unknown Unknown Verified 02/21/23 18:28 morphine Allergy Unknown Unknown Verified 02/21/23 18:28 PFSH Acute PFSH: Medical History Acute exacerbation of chronic obstructive pulmonary disease Acute systolic CHF (congestive heart failure) Bacteriuria CAD (coronary artery disease) Cardiogenic shock Cardiomyopathy COPD (chronic obstructive pulmonary disease) Cystitis Dehydration Dyslipidemia Elevated troponin Elevated troponin I level Emphysema lung Essential hypertension Extrinsic ureteral obstruction Fall Heart failure Heart failure, systolic, with acute decompensation Hip pain Hypoxia Lactic acidosis NSTEMI (non-ST elevated myocardial infarction) Peripheral arterial disease Pyuria Respiratory failure with hypoxia and hypercapnia Retained ureteral stent Systolic CHF Tobacco abuse Urinary incontinence UTI (urinary tract infection) Surgical History H/O arthroscopic knee surgery bilateral H/O oral surgery H/O shoulder surgery H/O total hip arthroplasty right H/O: H/O: hysterectomy History of colon surgery Family History Mother , at age 79 Hypertension Peripheral artery disease Diabetes Father , at age 47 Cancer pancreatic and lung Social History Smoking and tobacco status: current some day smoker (quitting) cigarettes Packs smoked per day: 0.5 Years cigarettes smoked: 60 [ Other cigarette details: Hx of 1 PPD x 50 Years] Second hand smoke exposure: Yes Smoking risk assessment/counseling performed?: Yes Alcohol intake: never Substance/Drug Use: never Lives independently: Yes Housing: Apartment Marital status: Legally Current occupational status: retired and disabled Do you think of yourself as: Straight/Heterosexual Current gender identity: Female Vitals/I&O/Wt Last Vital Signs Temp 98.1 F 02/21/23 21:10 Pulse 98 02/21/23 21:10 Resp 19 H 02/21/23 21:10 BP 122/58 02/21/23 21:10 Pulse Ox 98 02/21/23 21:10 O2 Del Method Room Air 02/21/23 18:24 02/21/23 02/21/23 02/21/23 06:59 14:59 22:59 Intake Total 0 / 0 Balance 0 / 0 Weight last 48 hrs Weight 48.988 kg Physical Exam Narrative: AAOx3, comfortable, anxious, frail, not in acute distress. Chest clear to ascultation B/L CVS S1S2 normal, no murmurs heard. Abd soft, non tender, non distended, normal bowel sounds Ext- no edema Data 02/21/23 18:50 02/21/23 18:50 A&P Assessment and plan (1) Upper gastrointestinal hemorrhage: likely secondary to chronic gastritis, peptic ulcer disease vs ruptured AV malformation. (2) Acute anemia: likely secondary to iron deficiency and upper GI bleed Plan Admit to medical floor, hemodynamically stable for now. will give IV fluids normal saline at 100ml/hr transfuse 2u PRBC. surgery consult in am for upper GI endoscopy. recheck labs in am IV pantoprazole 40mg bid. Hold po aspirin and plavix. continue rest home medications. Attestations Medical Necessity Statement*: will need further GI work up and scopy to determine the etiology for GI bleed. Time Spent in Patient Care: 30min Coding Level of Care Code 95698 Diagnoses Upper gastrointestinal hemorrhage K92.2 Acute anemia D64.9 Time Spent (min) 30
[2023-02-21] MEDS: FUROsemide 10 mg/mL SDV 2mL 20 MG IVP (23:17)
[2023-02-21] MEDS: pantoprazole 40 mg SDV IVP (23:17)
[2023-02-22] VITALS (17 sets, daily range): BP systolic 121–160; BP diastolic 62–93; PULSE 62–108; RESP 15–25; TEMP 36.6–37.1; O2SAT 90–98
--- NOTE | 2023-02-22 01:25 | ECG_ITS ---
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 Measurements Intervals [place] Rate: 88 P: -4 ND: 179 QRS: 48 QRSD: 105 T: -66 QT: 376 QTc: 456 Interpretive Statements SINUS RHYTHM POSSIBLE INFERIOR MYOCARDIAL INFARCTION , OF INDETERMINATE AGE [30 ms Q WAVE IN II/aVF] ST DEVIATION AND MODERATE T-WAVE ABNORMALITY, CONSIDER ANTEROLATERAL ISCHEMIA [-0.1+ mV T-WAVE IN V3-V6] Compared to ECG 02/04/2023 16:00:14 T-wave abnormality now present Possible ischemia now present Sinus arrhythmia no longer present Left ventricular hypertrophy no longer present ST (T wave) deviation no longer present Myocardial infarct finding still present Electronically Signed On 02-22-2023 13:20:28 CDT by Spencer Maciel M.D. [id number]
[2023-02-22] MEDS: nitroglycerin 0.4 mg sublingual Tablet SUBLINGUAL (01:32)
[2023-02-22 03:24] LABS: Troponin(5th) Baseline 59 ng/L (0-10)
[2023-02-22] MEDS: sodium chloride 0.9% 1,000 ML 100 ML IV ×3 (03:26→16:39)
--- NOTE | 2023-02-22 03:48 | ECG_ITS ---
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 Measurements Intervals [place] Rate: 86 P: 14 [place]: 172 QRS: 65 QRSD: 106 T: -60 QT: 382 QTc: 457 Interpretive Statements SINUS RHYTHM ST DEVIATION AND MODERATE T-WAVE ABNORMALITY, CONSIDER ANTEROLATERAL ISCHEMIA [-0.1+ mV T-WAVE IN V3-V6] ST DEVIATION AND MODERATE T-WAVE ABNORMALITY, CONSIDER INFERIOR ISCHEMIA [-0.1+ mV T-WAVE IN II/aVF] Compared to ECG 02/22/2023 01:29:04 Myocardial infarct finding no longer present T-wave abnormality still present Possible ischemia still present Electronically Signed On 02-22-2023 13:56:09 CDT by Spencer Maciel M.D. [id number]
[2023-02-22 05:17] LABS: Eosinophils # 0.2 10^3/uL (0.0-0.8); Eosinophils % 5.2 %; Hemoglobin 10.4 g/dL (11.5-15.3); Lymphocytes # 1.4 10^3/uL (0.8-4.8); Lymphocytes % 33.8 %; Mean Corpuscular HGB Conc 32.5 g/dL (30.0-36.0); Mean Corpuscular Hemoglobin 30.5 pg (28.0-34.0); Mean Corpuscular Volume 93.8 fl (81-99); Mean Platelet Volume 9.7 fL (7.4-10.4); Monocytes # 0.3 10^3/uL (0.2-0.9); Neutrophils # 2.11 10^3/uL (1.8-7.7); Neutrophils % 52.5 %; Nucleated Red Blood Cells % 0 %; Platelet Count 229 10^3/cmm (130-400); Red Blood Count 3.41 10^6/uL (4.1-5.3); Red Cell Distribution Width 16.2 % (12.1-15.1)
[2023-02-22 05:36] LABS: Alanine Aminotransferase 7 U/L (0-33); Albumin Level 3.5 g/dL (3.5-5.2); Alkaline Phosphatase 126 U/L (35-105); Aspartate Amino Transferase 13 U/L (0-32); Blood Urea Nitrogen 17 mg/dL (8-23); Calcium 9.1 mg/dL (8.5-10.5); Carbon Dioxide 23 mmol/L (22-29); Chloride 109 mmol/L (98-107); Globulin 2.5 g/dL (1.3-4.6); Glucose 81 mg/dL (65-115); Osmolality Calculated 299 mOsm/kg (285-295); Sodium 144 mmol/L (136-145); Total Bilirubin 1.4 mg/dL (0.15-1.2); Troponin 5 2HR 62.35 ng/L (0-10)
[2023-02-22 05:47] LABS: Anion Gap 15.7 (5-19); Potassium 3.7 mmol/L (3.5-5.1); Troponin 5 2HR Delta 3.35 ABS# (0-10)
--- NOTE | 2023-02-22 06:18 | W.PM.EVENTAC ---
Event Note Event Note: patient c/o left sided chest pain during blood transfusion which was relieved completetly with SL NTG. EKG done showed new changes as compared to 02/08/23, Twi in V3-V6 and ST depressions. first set of troponins were posiive at 59. Event Notes Attestations Time Spent in Patient Care: 15min
[2023-02-22] MEDS: ascorbic acid 500 mg Tablet 1000 MG PO ×2 (06:38→18:04)
[2023-02-22] MEDS: fluticasone nasal spray 16gm Btl 1 SPRAY INTRANASAL (06:38)
[2023-02-22] MEDS: multivitamin therapeutic Tablet 1 TAB PO (06:38)
[2023-02-22] MEDS: metoprolol tartrate 50 mg Tablet PO ×2 (06:38→18:04)
--- NOTE | 2023-02-22 07:47 | ECG_ITS ---
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 Measurements Intervals [place] Rate: 78 P: -7 LA: 186 QRS: 46 QRSD: 96 T: -13 QT: 397 QTc: 454 Interpretive Statements SINUS RHYTHM LEFT VENTRICULAR HYPERTROPHY AND ST-T CHANGE [VOLTAGE CRITERIA PLUS ST/T ABNORMALITY] Compared to ECG 02/22/2023 03:48:26 Left ventricular hypertrophy now present ST (T wave) deviation now present T-wave abnormality no longer present Possible ischemia no longer present Electronically Signed On 02-22-2023 13:55:51 CDT by Spencer Maciel M.D. [id number]
[2023-02-22] MEDS: pantoprazole 40 mg SDV IVP ×2 (09:22→20:33)
[2023-02-22] MEDS: isosorbide dinitrate 20 mg Tablet 10 MG PO ×2 (09:22→18:05)
[2023-02-22] MEDS: potassium chloride ER 10 mEq Tablet PO (09:22)
[2023-02-22 09:42] LABS: Troponin 5 6HR 66.44 ng/L (0-10)
[2023-02-22 09:43] LABS: Troponin 5 6HR Delta 7.44 ng/L (0-12)
--- NOTE | 2023-02-22 16:44 | PM.PN ---
Subjective Subjective: Overnight labs and H&P reviewed. Patient plan for EGD tomorrow. Received blood transfusion following which her hemoglobin has improved to 10. Denies any current chest pain. Overnight was noted to have ST depression in leads V3 to V6, comparing to prior EKGs, these findings were present on EKG from January 2023 as well. Troponin trend noted at 59 --> 62--> 66, no significant delta at 2 or 6 hours. Overall troponin has trended down from 140 on previous admission on January 28, 2023. Medications: Reviewed: Yes Vitals/I&O/Wt Last Vital Signs Temp 98.0 F 02/22/23 15:31 Pulse 79 02/22/23 15:31 Resp 15 02/22/23 15:31 BP 146/65 02/22/23 15:31 Pulse Ox 95 02/22/23 15:31 O2 Del Method Room Air 02/22/23 03:39 02/22/23 02/22/23 02/22/23 06:59 14:59 22:59 Intake Total 1021.667 / 1021.667 480 / 480 1000 / 1480 Output Total Balance 1021.667 / 1021.667 470 / 470 1000 / 1470 Weight last 48 hrs Weight 48.988 kg Physical Exam Narrative: General: No acute distress, AO x3 HEENT: PERRLA, pupils bilaterally equal and reactive, pallors not present Chest: Normal vesicular breath sounds, no added sounds, equal good air entry bilaterally CVS: S1-S2 regular, no murmurs, no tachycardia, no gallops, no rubs Abdomen: Soft, nontender, no organomegaly, bowel sounds present Neuro: No focal deficits, no facial deformity, AO x3, power 5/5 in all limbs Data 02/24/23 04:05 02/23/23 03:21 A&P Assessment and plan (1) Acute anemia: (2) GI bleed: (3) Elevated troponin: (4) Acute CHF (congestive heart failure): Plan Ms. Gerardo is a 77-year-old lady with a recent history of UTI, chronic ureteral stent, last exchanged on February 08 and recent ESBL E. coli infection who was on treatment with ertapenem for 14 days, has completed this treatment. Her other comorbidities include heart failure with last known EF of 35 to 40%, recurrent admissions in the past related to CHF exacerbation, NSTEMI in June 2022 which needed to be managed medically as he had a complicated vascular anatomy. CABG was recommended which the patient declined. He is currently admitted to the hospital with chief complaints of melanotic stools for the last 3 days along with a hemoglobin drop to 6.4. On her last admission she was recommended to undergo endoscopy for chronic recurrent anemia, however it does not appear this has happened yet. Currently planned for EGD tomorrow Hb improved after transfusion overnight She is chest pain-free. EKG per my interpretation is grossly unchanged from January 2023. At this present time overall clinical impression is that her troponin trend is likely secondary to demand ischemia from severe anemia. Hemoglobin of 6.4 with known cardiac disease is likely to precipitate some degree of cardiac hypoxia. Overall troponin down from previous values in 01/2023 Low suspicion for acute MS at this point in time. Patient has complicated cardiac anatomy, angiogram was previosuly attempted but vessles unable to be traversed, she was recommended CABG but patient declined. DVT ppx: Scds only, lovenox contraindicated Full code Attestations Medical Necessity Statement*: planned EGD, monitor serial HB Coding Level of Care Code Acute Code for Chg Fwd Diagnoses Acute anemia D64.9 GI bleed K92.2 Elevated troponin R77.8 Acute CHF (congestive heart failure) I50.9
[2023-02-22] MEDS: atorvastatin 40 mg Tablet PO (18:04)
[2023-02-22] MEDS: ipratropium-albuterol 3 mL Neb INHALATION (20:32)
[2023-02-23] VITALS (9 sets, daily range): BP systolic 85–152; BP diastolic 53–70; PULSE 83–116; RESP 16–24; TEMP 36.8–36.9; O2SAT 92–99
[2023-02-23] MEDS: nitroglycerin 0.4 mg sublingual Tablet SUBLINGUAL (02:21)
[2023-02-23 03:43] LABS: Basophils # 0.1 10^3/uL (0.0-0.1); Basophils % 0.7 %; Eosinophils % 0.3 %; Hematocrit 34.9 % (37.0-47.0); Hemoglobin 11.1 g/dL (11.5-15.3); Lymphocytes # 1.2 10^3/uL (0.8-4.8); Lymphocytes % 15.8 %; Mean Corpuscular HGB Conc 31.8 g/dL (30.0-36.0); Mean Corpuscular Hemoglobin 30.2 pg (28.0-34.0); Mean Corpuscular Volume 95.1 fl (81-99); Mean Platelet Volume 9.7 fL (7.4-10.4); Monocytes # 0.5 10^3/uL (0.2-0.9); Monocytes % 6.3 %; Neutrophils # 5.55 10^3/uL (1.8-7.7); Neutrophils % 76.5 %; Nucleated Red Blood Cells % 0 %; Platelet Count 250 10^3/cmm (130-400); Red Blood Count 3.67 10^6/uL (4.1-5.3); Red Cell Distribution Width 16.6 % (12.1-15.1); White Blood Count 7.3 10^3/uL (4.0-10.0)
[2023-02-23 04:07] LABS: Alanine Aminotransferase 6 U/L (0-33); Albumin Level 3.4 g/dL (3.5-5.2); Alkaline Phosphatase 135 U/L (35-105); Anion Gap 14.6 (5-19); Aspartate Amino Transferase 11 U/L (0-32); Blood Urea Nitrogen 17 mg/dL (8-23); Calcium 9.3 mg/dL (8.5-10.5); Carbon Dioxide 21 mmol/L (22-29); Chloride 113 mmol/L (98-107); Glucose 98 mg/dL (65-115); Osmolality Calculated 302 mOsm/kg (285-295); Potassium 3.6 mmol/L (3.5-5.1); Sodium 145 mmol/L (136-145); Total Bilirubin 1.2 mg/dL (0.15-1.2); Total Protein 6.4 g/dL (6.6-8.7)
--- NOTE | 2023-02-23 08:26 | ECG_ITS ---
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 Measurements Intervals [place] Rate: 114 P: 20 AR: 148 QRS: 55 QRSD: 98 T: 66 QT: 328 QTc: 453 Interpretive Statements SINUS TACHYCARDIA LEFT VENTRICULAR HYPERTROPHY AND ST-T CHANGE [VOLTAGE CRITERIA PLUS ST/T ABNORMALITY] Compared to ECG 02/22/2023 09:00:18 Sinus rhythm no longer present ST (T wave) deviation still present Electronically Signed On 02-23-2023 13:00:59 CDT by Meera Buckley M.D. [id number]
[2023-02-23] MEDS: potassium chloride ER 10 mEq Tablet PO (08:36)
[2023-02-23] MEDS: ferrous sulfate EC 325 mg Tablet PO (08:36)
[2023-02-23] MEDS: isosorbide dinitrate 20 mg Tablet 10 MG PO (08:38)
[2023-02-23] MEDS: pantoprazole 40 mg SDV IVP ×2 (08:48→21:02)
[2023-02-23] MEDS: sodium chloride 0.9% 1,000 ML 30 ML IV (10:16)
--- NOTE | 2023-02-23 11:03 | P.ANESASSM_ITS ---
Pre-Anesthetic Assessment Height/Weight: Height 1.55 m Weight 48.988 kg Temp Pulse Resp BP Pulse Ox O2 Del Method O2 Flow Rate 98.5 F 116 H 24 H 152/69 99 Nasal Cannula 4 02/23/23 09:51 02/23/23 09:51 02/23/23 09:51 02/23/23 09:51 02/23/23 09:51 02/23/23 09:51 02/23/23 09:51 Operation Date: 02/23/23 11:00 Proposed Procedures p EGD(Not Applicable) - Isael Mao DO Familial anesthetic complications: none Was Beta Chelsie taken within 24 hours: Yes Was Clonidine taken within 24 hours: N/A Social No alcohol and No tobacco (h/o smoking) Exam alert, oriented x 3 and clear to auscultation bilaterally Irregular, tachy Airway Submandibular: within normal limits Cervical ROM: within normal limits Mallampati: Class I Dentition: false Pulmonary Chronic Obstructive Pulmonary Disease CV/HEM Anemia, Coronary Artery Disease, Congestive Heart Failure (EF 35-40%), Hypertension and Peripheral Vascular Disease recent CP/SOB/nausea with elevated troponins [facility] Osteoarthritis/DJD Anesthetic Plan ASA status: 3 Anesthesia: MAC Other: Would be advisable to have cardiac w/u prior to anesthetic unless emergent proce dure. Medications/Allergies Home Medications Medication Instructions Recorded Confirmed Last Taken Type fluticasone propionate 50 1 spray intranasal DAILY@07/26/22 02/21/23 02/21/23 07:39 History mcg/actuation nasal spray,suspension (Flonase Allergy Relief) nitroglycerin 0.4 mg sublingual 0.4 mg sublingual Q5M PRN chest 10/20/22 02/21/23 Unknown Rx tablet pain #25 tabs ascorbic acid (vitamin C) 500 mg 1,000 mg PO BID@,01/23/23 02/21/23 02/21/23 15:46 History tablet (Vitamin C) methenamine hippurate 1 gram tablet 1 g PO BID@,01/23/23 02/21/23 02/21/23 15:46 History multivitamin 1 tab PO DAILY@07 01/23/23 02/21/23 02/21/23 07:38 History aspirin 81 mg tablet,delayed 81 mg PO DAILY@07 #30 tabs 02/01/23 02/21/23 02/21/23 07:39 Rx release atorvastatin 40 mg tablet 40 mg PO BEDTIME@19 #30 tabs 02/01/23 02/21/23 02/19/23 16:19 Rx clopidogrel 75 mg tablet 75 mg PO DAILY@07 #30 tabs 02/01/23 02/21/23 02/21/23 07:39 Rx isosorbide dinitrate 10 mg tablet 10 mg PO BID #60 tabs 02/01/23 02/21/23 02/21/23 15:46 Rx metoprolol tartrate 50 mg tablet 50 mg PO BID@07,19 #60 tabs 02/01/23 02/21/23 02/21/23 07:39 Rx potassium chloride 10 mEq 10 meq PO DAILY 02/03/23 02/21/23 02/21/23 07:39 History tablet,extended release (Klor-Con) ferrous sulfate 325 mg (65 mg 325 mg PO EVERY OTHER DAY #90 tabs 02/09/23 02/21/23 02/21/23 07:34 Rx iron) tablet,delayed release furosemide 40 mg tablet (Lasix) 20 mg PO DAILY PRN Edema 30 days 02/09/23 02/21/23 02/21/23 07:39 Rx #30 tabs bisacodyl 10 mg rectal suppository 10 mg AR DAILY PRN Constipation 02/21/23 02/21/23 Unknown History (Dulcolax (bisacodyl)) ertapenem 1 gram solution for 1 g IM DAILY UTI 02/21/23 02/21/23 02/21/23 06:27 History injection (Invanz) magnesium hydroxide 400 mg/5 mL 30 ml PO DAILY PRN Constipation 02/21/23 02/21/23 Unknown History oral suspension (Milk of Magnesia) Allergies Allergy/AdvReac Type Severity Reaction Status Date / Time meperidine [From Demerol] Allergy Unknown Unknown Verified 02/21/23 18:28 morphine Allergy Unknown Unknown Verified 02/21/23 18:28 Current Medications Generic Name Dose Route Start Last Admin Trade Name Freq PRN Reason Stop Dose Admin Ascorbic Acid 1,000 mg 02/22/23 07:00 02/23/23 06:13 Ascorbic Acid 500 Mg Tablet PO Not Given BID@07,19 [facility] Atorvastatin Calcium 40 mg 02/22/23 19:00 02/22/23 18:04 Atorvastatin 40 Mg Tablet PO 40 mg BEDTIME@19 KORTNEY Administration Ferrous Sulfate 325 mg 02/23/23 09:00 02/23/23 08:36 Ferrous Sulfate Ec 325 Mg Tablet PO 325 mg EVERY OTHER DAY KORTNEY Administration Fluticasone Propionate 1 spray 02/22/23 07:00 02/23/23 06:13 Fluticasone Nasal [place] 16gm Btl INTRANASAL Not Given DAILY@07 [facility] Sodium Chloride 1,000 mls @ 100 mls/hr 02/21/23 21:30 02/23/23 01:59 Sodium Chloride 0.9% IV Not Given .Q10H KORTNEY Sodium Chloride 1,000 mls @ 30 mls/hr 02/22/23 16:45 02/22/23 17:31 Sodium Chloride 0.9% IV Not Given .Q24H KORTNEY Sodium Chloride 1,000 mls @ 30 mls/hr 02/23/23 10:15 02/23/23 10:16 Sodium Chloride 0.9% IV 02/24/23 10:14 30 mls/hr .Q24H KORTNEY Administration Isosorbide Dinitrate 10 mg 02/22/23 09:00 02/23/23 08:38 Isosorbide Dinitrate 20 Mg Tablet PO 10 mg BID KORTNEY Administration Metoprolol Tartrate 50 mg 02/22/23 07:00 02/23/23 06:13 Metoprolol Tartrate 50 Mg Tablet PO Not Given BID@, [facility] Multivitamins Therapeutic 1 tab 02/22/23 07:00 02/23/23 06:13 Multivitamin Therapeutic Tablet PO Not Given DAILY@07 [facility] Nitroglycerin 0.4 mg 02/21/23 21:43 02/23/23 02:21 Nitroglycerin 0.4 Mg Sublingual Tablet SUBLINGUAL 0.4 mg Q5M PRN Administration chest pain Pantoprazole Sodium 40 mg 02/21/23 21:32 02/23/23 08:48 Pantoprazole 40 Mg Sdv IVP 40 mg Q12H KORTNEY Administration Potassium Chloride 10 meq 02/22/23 09:00 02/23/23 08:36 Potassium Chloride Er 10 Meq Tablet PO 10 meq DAILY KORTNEY Administration PFSH Anesthesia Medical History Acute exacerbation of chronic obstructive pulmonary disease Acute systolic CHF (congestive heart failure) Bacteriuria CAD (coronary artery disease) Cardiogenic shock Cardiomyopathy COPD (chronic obstructive pulmonary disease) Cystitis Dehydration Dyslipidemia Elevated troponin Elevated troponin I level Emphysema lung Essential hypertension Extrinsic ureteral obstruction Fall Heart failure Heart failure, systolic, with acute decompensation Hip pain Hypoxia Lactic acidosis NSTEMI (non-ST elevated myocardial infarction) Peripheral arterial disease Pyuria Respiratory failure with hypoxia and hypercapnia Retained ureteral stent Systolic CHF Tobacco abuse Urinary incontinence UTI (urinary tract infection) Surgical History H/O arthroscopic knee surgery bilateral H/O oral surgery H/O shoulder surgery H/O total hip arthroplasty right H/O: H/O: hysterectomy History of colon surgery Family History Mother , at age 79 Hypertension Peripheral artery disease Diabetes Father , at age 47 Cancer pancreatic and lung Social History Smoking and tobacco status: current some day smoker (quitting) cigarettes Packs smoked per day: 0.5 Years cigarettes smoked: 60 [ Other cigarette details: Hx of 1 PPD x 50 Years] Second hand smoke exposure: Yes Smoking risk assessment/counseling performed?: Yes Alcohol intake: never Substance/Drug Use: never Lives independently: Yes Housing: Apartment Marital status: Legally Current occupational status: retired and disabled Do you think of yourself as: Straight/Heterosexual Current gender identity: Female Data Anesthesia 02/23/23 03:21 02/23/23 03:21 Short CBC 02/21/23 02/22/23 02/23/23 Range/Units 18:50 05:09 03:21 WBC 3.8 L 4.0 7.3 (4.0-10.0) 10^3/uL Hgb 6.4 L* 10.4 L D 11.1 L (11.5-15.3) g/dL Hct 21.6 L 32.0 L D 34.9 L (37.0-47.0) % MCV 99.5 H 93.8 D 95.1 (81-99) fl Plt Count 238 229 250 (130-400) 10^3/cmm Neut % (Auto) 47.5 52.5 76.5 % Neut # (Auto) 1.81 2.11 5.55 (1.8-7.7) 10^3/uL BMP 02/21/23 02/22/23 02/23/23 18:50 05:09 03:21 Sodium 146 H 144 145 Potassium 3.5 3.7 3.6 Chloride 110 H 109 H 113 H Carbon Dioxide 24 23 21 L BUN 21 17 17 Creatinine 1.0 H 0.8 0.9 Glucose 99 81 98 Calcium 8.7 9.1 9.3 Cardiac Enzymes 02/22/23 02/22/23 02/22/23 Range/Units 02:58 05:09 09:16 Troponin T Baseline 59 H (0-10) ng/L Troponin T 120 Minute 62.35 H (0-10) ng/L Delta Troponin T 3.35 (0-10) ABS# Troponin T Hi Sens 6Hr 66.44 H (0-10) ng/L Troponin T Hi Sens 6Hr Delta 7.44 (0-12) ng/L Liver Function 02/21/23 02/22/23 02/23/23 Range/Units 18:50 05:09 03:21 Total Bilirubin 0.2 1.4 H 1.2 (0.15-1.2) mg/dL AST 12 13 11 (0-32) U/L ALT 6 7 6 (0-33) U/L Alkaline Phosphatase 108 H 126 H 135 H (35-105) U/L Albumin 3.5 3.5 3.4 L (3.5-5.2) g/dL Blood Bank 02/21/23 18:50 Blood Type O Positive Rho(D) Type Positive Antibody Screen Negative Coags 02/21/23 18:50 PT 14.30 INR 1.08 Cardiac Studies: Echocardiogram 01/23/23 Echocardiogram Limited Views 08/19/22
[2023-02-23] MEDS: sodium chloride 0.9% 500 ML 999 ML IV (11:35)
--- NOTE | 2023-02-23 17:26 | PM.PN ---
Subjective Subjective: Hemoglobin is improved today to 11.1. No melena today. Endoscopy scheduled for today was canceled by anesthesia this morning as patient had complained of some chest pain overnight. Previous troponin trend was noted at 59---> 62--> 66. Denies any chest pain this morning. Medications: Reviewed: Yes Vitals/I&O/Wt Last Vital Signs Temp 98.3 F 02/23/23 16:04 Pulse 104 H 02/23/23 16:04 Resp 16 02/23/23 16:04 BP 130/70 02/23/23 16:04 Pulse Ox 94 02/23/23 16:04 O2 Del Method Nasal Cannula 02/23/23 16:04 O2 Flow Rate 4 02/23/23 09:51 02/23/23 02/23/23 02/23/23 06:59 14:59 22:59 Intake Total 120 / 1806.667 500 / 500 Balance 120 / 1796.667 500 / 500 Weight last 48 hrs Weight 48.988 kg Physical Exam Narrative: General: No acute distress, AO x3 HEENT: PERRLA, pupils bilaterally equal and reactive, pallors not present Chest: Normal vesicular breath sounds, no added sounds, equal good air entry bilaterally CVS: S1-S2 regular, no murmurs, no tachycardia, no gallops, no rubs Abdomen: Soft, nontender, no organomegaly, bowel sounds present Neuro: No focal deficits, no facial deformity, AO x3, power 5/5 in all limbs Data 02/23/23 03:21 02/23/23 03:21 A&P Assessment and plan (1) Acute anemia: (2) GI bleed: (3) Elevated troponin: Plan Ms. Busch is a 77-year-old lady with a recent history of UTI, chronic ureteral stent, last exchanged on February 08 and recent ESBL E. coli infection who was on treatment with ertapenem for 14 days, has completed this treatment. Her other comorbidities include heart failure with last known EF of 35 to 40%, recurrent admissions in the past related to CHF exacerbation, NSTEMI in June 2022 which needed to be managed medically as he had a complicated vascular anatomy. CABG was recommended which the patient declined. He is currently admitted to the hospital with chief complaints of melanotic stools for the last 3 days along with a hemoglobin drop to 6.4. On her last admission she was recommended to undergo endoscopy for chronic recurrent anemia, however it does not appear this has happened yet. Due to ongoing melena, low hemoglobin of 6.4 patient was planned to undergo endoscopic evaluation today, however this has been canceled by anesthesia as patient complains of some chest pain last night and 2 nights ago had a troponin trend of 59--> 62--> 64 without a significant delta. She is chest pain-free this morning. EKG per my interpretation is grossly unchanged from January 2023. Her hemoglobin has currently stabilized at 11.4. At this present time overall clinical impression is that her troponin trend is likely secondary to demand ischemia from severe anemia. Hemoglobin of 6.4 and outpatient with known cardiac disease is likely to precipitate some degree of cardiac hypoxia. Low suspicion for acute ND at this point in time. Given past history of complicated vascular anatomy and lower concern for acute ND at this time, left heart cath is not urgently indicated. We will trend her hemoglobin again in a.m. tomorrow. Hold her antihypertensives today, BP noted to be 90 systolic after receicing imdur today If pt has stable Hb and Stable BP, will likely defer endoscopic evaluation as outpatient after cardiology clearance. Attestations Medical Necessity Statement*: hold antihypertnsives, monitor Hb trend with am labs , monitor hemodynamics Coding Level of Care Code Acute Code for Chg Fwd Diagnoses Acute anemia D64.9 GI bleed K92.2 Elevated troponin R77.8
[2023-02-23] MEDS: sodium chloride 0.9% 1,000 ML 50 ML IV (17:55)
[2023-02-24] VITALS (10 sets, daily range): BP systolic 114–164; BP diastolic 56–85; PULSE 76–116; RESP 15–28; TEMP 36.4–37; O2SAT 91–97
[2023-02-24 04:16] LABS: Basophils % 0.6 %; Eosinophils # 0.1 10^3/uL (0.0-0.8); Hematocrit 31.2 % (37.0-47.0); Hemoglobin 9.4 g/dL (11.5-15.3); Lymphocytes # 0.8 10^3/uL (0.8-4.8); Lymphocytes % 16.4 %; Mean Corpuscular HGB Conc 30.1 g/dL (30.0-36.0); Mean Corpuscular Hemoglobin 28.9 pg (28.0-34.0); Mean Platelet Volume 9.7 fL (7.4-10.4); Monocytes # 0.5 10^3/uL (0.2-0.9); Monocytes % 9.4 %; Neutrophils # 3.51 10^3/uL (1.8-7.7); Neutrophils % 72.2 %; Nucleated Red Blood Cells % 0 %; Platelet Count 205 10^3/cmm (130-400); Red Blood Count 3.25 10^6/uL (4.1-5.3); Red Cell Distribution Width 16.6 % (12.1-15.1); White Blood Count 4.9 10^3/uL (4.0-10.0)
[2023-02-24] MEDS: sodium chloride 0.9% 1,000 ML 50 ML IV (05:59)
[2023-02-24] MEDS: potassium chloride ER 10 mEq Tablet PO (08:37)
[2023-02-24] MEDS: pantoprazole 40 mg SDV IVP ×2 (10:05→21:54)
[2023-02-24] MEDS: metoprolol tartrate 50 mg Tablet PO ×2 (12:00→18:05)
--- NOTE | 2023-02-24 13:45 | P.PN_ITS ---
Subjective Subjective: Patient is noted to be short of breath today. She is extremely tachypneic on exam with a respiratory rate of 25/min. Bilateral wheezing and Rales to auscultation. Stat chest x-ray ordered. IV fluids have been discontinued. Denies any current chest pain. Hemoglobin is stable today at 9.4. Medications: Reviewed: Yes Vitals/I&O/Wt Last Vital Signs Temp 97.9 F 02/24/23 12:16 Pulse 93 02/24/23 12:16 Resp 16 02/24/23 12:16 BP 163/82 02/24/23 12:16 Pulse Ox 94 02/24/23 12:16 O2 Del Method Nasal Cannula 02/24/23 12:16 O2 Flow Rate 2 02/24/23 08:45 02/23/23 02/24/23 02/24/23 22:59 06:59 14:59 Intake Total 1060 / 1560 603.333 / 2163.333 913.333 / 913.333 Balance 1060 / 1560 603.333 / 2163.333 913.333 / 913.333 Physical Exam Narrative: General: No acute distress, AO x3 HEENT: PERRLA, pupils bilaterally equal and reactive, pallors not present Chest: Normal vesicular breath sounds, no added sounds, equal good air entry bilaterally CVS: S1-S2 regular, no murmurs, no tachycardia, no gallops, no rubs Abdomen: Soft, nontender, no organomegaly, bowel sounds present Neuro: No focal deficits, no facial deformity, AO x3, power 5/5 in all limbs Data 02/24/23 04:05 02/23/23 03:21 A&P Assessment and plan (1) Acute anemia: (2) GI bleed: (3) Elevated troponin: (4) Acute CHF (congestive heart failure): Plan Ms. Gerardo is a 77-year-old lady with a recent history of UTI, chronic ureteral stent, last exchanged on February 08 and recent ESBL E. coli infection who was on treatment with ertapenem for 14 days, has completed this treatment. Her other comorbidities include heart failure with last known EF of 35 to 40%, recurrent admissions in the past related to CHF exacerbation, NSTEMI in June 2022 which needed to be managed medically as he had a complicated vascular anatomy. CABG was recommended which the patient declined. He is currently admitted to the hospital with chief complaints of melanotic stoo ls for the last 3 days along with a hemoglobin drop to 6.4. On her last admission she was recommended to undergo endoscopy for chronic recurrent anemia, however it does not appear this has happened yet. Due to ongoing melena, low hemoglobin of 6.4 patient was planned to undergo endoscopic evaluation, was eventually canceled by anesthesia due to concerns for CAD, low EF and elevated troponins. This may be reattempted as outpatient after cardiology clearance Hb has currently stabilized at 9.4 She is chest pain-free. EKG per my interpretation is grossly unchanged from January 2023. At this present time overall clinical impression is that her troponin trend is likely secondary to demand ischemia from severe anemia. Hemoglobin of 6.4 with known cardiac disease is likely to precipitate some degree of cardiac hypoxia. Low suspicion for acute CT at this point in time. Today patient is noted to be tachypneic, saturating 91%, bilateral Rales and wheezing on auscultation. Suspect patient has acute on chronic systolic CHF exacerbation precipitated by blood transfusion and IV fluid resuscitation during this admission. Lasix 40 mg IV stat. Discontinue IV fluids continued telemetry monitoring Place Velasquez catheter to strictly monitor her input and output She is currently afebrile. Blood pressure is maintained after discontinuing Imdur yesterday. Given past history of complicated vascular anatomy and lower concern for acute CT at this time, left heart cath is not urgently indicated. Additionally with ongoing GI bleeding, patient would not be an ideal candidate to be on anticoagulation or on dual antiplatelets at this time. Disposition: [facility] 14 days of ertapenem treatment. She lives alone currently. Patient is sig nificantly deconditioned because of her recent hospital admissions, current CHF exacerbation. It is probably not going to be safe to send her home in her current state. PT evaluation requested. Based on assessments will need appropriate disposition planning. Attestations Medical Necessity Statement*: IV diuresis today, stat chest x-ray, acute CHF exacerbation Coding Level of Care Code Acute Code for Chg Fwd Diagnoses Acute anemia D64.9 GI bleed K92.2 Elevated troponin R77.8 Acute CHF (congestive heart failure) I50.9
[2023-02-24] MEDS: ipratropium-albuterol 3 mL Neb INHALATION ×2 (13:52→20:44)
--- NOTE | 2023-02-24 13:53 | XR_ITS ---
WS: [id number] XR chest 1V portable [id number] REASON FOR EXAM: CHF exacerbation FINDINGS: Moderately tortuous and ectatic thoracic aorta. Cardiomegaly. Interstitial lung opacities in the lower lung tompkins with Steff B lines along the right lateral lowe r lung margin. Costophrenic angles are minimally blunted. XR/XR chest 1V portable [id number] IMPRESSION: Findings indicative of congestive heart failure.
--- NOTE | 2023-02-24 14:30 | PC.SOCIAL ---
Pg 2 IMM Explained to pt Pg 2 IMM. No questions voiced. Provided pt a copy. Initialed, dated, & timed a copy & placed in chart.
[2023-02-24] MEDS: FUROsemide 10 mg/mL SDV 4mL 40 MG IVP (14:55)
[2023-02-24 15:33] LABS: Add Urine Microscopic? YES; Bacteria Urine 1+ /hpf; Bilirubin Urine Neg (Negative); Blood Urine 3+ (Negative); Glucose Urine UA Norm (Normal); Ketones Urine 1+ (Negative); Leukocyte Esterase Urine 2+ (Negative); Mucus Urine 2+ /hpf; Nitrate Urine Negative (Negative); Protein Urine Neg (Negative); RBC Urine 25-40 /hpf (0-2); Squamous Epithelial Cell Urine 0-4 /hpf (0-5); Urine Appearance Cloudy (CLEAR); Urine Color Yellow (Yellow); Urobilinogen Urine Norm (Negative); WBC Urine 80-100 /hpf (0-5); pH Urine 5 (5-7)
[2023-02-24 15:34] LABS: Add Urine Culture? Yes
[2023-02-24] MEDS: atorvastatin 40 mg Tablet PO (18:05)
[2023-02-25] VITALS (11 sets, daily range): BP systolic 94–120; BP diastolic 30–58; PULSE 75–91; RESP 16–20; TEMP 36.4–36.8; O2SAT 94–97
[2023-02-25] MEDS: FUROsemide 10 mg/mL SDV 4mL 40 MG IVP ×2 (00:43→22:20)
[2023-02-25] MEDS: ipratropium-albuterol 3 mL Neb INHALATION ×4 (02:14→19:11)
[2023-02-25 05:47] LABS: Basophils % 0.4 %; Eosinophils # 0.1 10^3/uL (0.0-0.8); Eosinophils % 1.3 %; Hematocrit 33.7 % (37.0-47.0); Hemoglobin 10.7 g/dL (11.5-15.3); Lymphocytes # 1.1 10^3/uL (0.8-4.8); Lymphocytes % 24.4 %; Mean Corpuscular HGB Conc 31.8 g/dL (30.0-36.0); Mean Corpuscular Hemoglobin 30.7 pg (28.0-34.0); Mean Corpuscular Volume 96.6 fl (81-99); Mean Platelet Volume 10.1 fL (7.4-10.4); Monocytes # 0.5 10^3/uL (0.2-0.9); Monocytes % 10.1 %; Neutrophils # 2.82 10^3/uL (1.8-7.7); Neutrophils % 63.4 %; Nucleated Red Blood Cells % 0 %; Platelet Count 212 10^3/cmm (130-400); Red Blood Count 3.49 10^6/uL (4.1-5.3); Red Cell Distribution Width 16.7 % (12.1-15.1); White Blood Count 4.5 10^3/uL (4.0-10.0)
[2023-02-25 06:11] LABS: Troponin T (5th) Once 69 ng/L (0-10)
[2023-02-25 06:22] LABS: Alanine Aminotransferase < 5 U/L (0-33); Albumin Level 3.2 g/dL (3.5-5.2); Alkaline Phosphatase 122 U/L (35-105); Anion Gap 17.4 (5-19); Aspartate Amino Transferase 9 U/L (0-32); Blood Urea Nitrogen 19 mg/dL (8-23); Calcium 9.1 mg/dL (8.5-10.5); Carbon Dioxide 23 mmol/L (22-29); Chloride 112 mmol/L (98-107); Glucose 84 mg/dL (65-115); Osmolality Calculated 309 mOsm/kg (285-295); Potassium 3.4 mmol/L (3.5-5.1); Sodium 149 mmol/L (136-145); Total Protein 6.2 g/dL (6.6-8.7)
[2023-02-25] MEDS: potassium chloride ER 10 mEq Tablet PO (08:36)
[2023-02-25] MEDS: ferrous sulfate EC 325 mg Tablet PO (08:36)
--- NOTE | 2023-02-25 08:36 | PC.NURSE ---
Physician Notification: Dr. Moore notified of pt blood pressure of 120/40
[2023-02-25] MEDS: pantoprazole 40 mg SDV IVP ×2 (10:07→22:19)
[2023-02-25] MEDS: atorvastatin 40 mg Tablet PO (18:15)
--- NOTE | 2023-02-25 22:20 | P.PN_ITS ---
Subjective Subjective: hb this am at 10.7, breathing is much easier compared to yesterday. States she feels very weak and tired today Medications: Reviewed: Yes Vitals/I&O/Wt Last Vital Signs Temp 97.5 F L 02/25/23 20:00 Pulse 83 02/25/23 20:00 Resp 18 02/25/23 20:00 BP 94/47 02/25/23 20:00 Pulse Ox 94 02/25/23 20:00 O2 Del Method Nasal Cannula 02/25/23 19:11 O2 Flow Rate 2 02/25/23 22:17 02/25/23 02/25/23 02/25/23 06:59 14:59 22:59 Intake Total 210 / 210 900 / 1110 Output Total 2600 / 2600 Balance -2600 / -1053.334 210 / 210 900 / 1110 Physical Exam Narrative: General: No acute distress, AO x3 HEENT: PERRLA, pupils bilaterally equal and reactive, pallors not present Chest: Normal vesicular breath sounds, no added sounds, equal good air entry bilaterally CVS: S1-S2 regular, no murmurs, no tachycardia, no gallops, no rubs Abdomen: Soft, nontender, no organomegaly, bowel sounds present Neuro: No focal deficits, no facial deformity, AO x3, power 5/5 in all limbs Urinary Catheter Management: Velasquez: Cath Placed During This Visit: yes Reason for Continuing Indwelling Catheter: Other Urinary Catheter Date of Insertion: 02/24/23 Urinary Catheter Time of Insertion: 14:46 Data 02/25/23 04:50 02/25/23 04:50 A&P Assessment and plan (1) Acute anemia: (2) GI bleed: (3) Elevated troponin: (4) Acute CHF (congestive heart failure): Plan Ms. Gerardo is a 77-year-old lady with a recent history of UTI, chronic ureteral stent, last exchanged on February 08 and recent ESBL E. coli infection who was on treatment with ertapenem for 14 days, has completed this treatment. Her other comorbidities include heart failure with last known EF of 35 to 40%, recurrent admissions in the past related to CHF exacerbation, NSTEMI in June 2022 which needed to be managed medically as he had a complicated vascular anatomy. CABG was recommended which the patient declined. #SHe is currently admitted to the hospital with chief complaints of melanotic stools for the 3 days [employer] with a hemoglobin drop to 6.4. She was planned for EGD/ colonoscopy however anesthesia declined the procedure as patient c/o chest pain prior to the procedure. She has since been chest pain-free. EKG per my interpretation is grossly unchanged from January 2023. She had elevated trop 50-60 range without significant delta, likely due to demand ischemic from severe anemia and downtrend from admission in january 2023. Hb improved after transfusion, now stable at ~ 10. Low suspicion for acute PA at this point in time. Patient has complicated cardiac anatomy, angiogram was previously attempted but vessels unable to be traversed, she was recommended CABG but patient declined. Peggy since resolved continue protonix 40mg ivp q12h # Hospital course now also complicated by development of acute on chronic systolic CHF, likely precipitated by iv fluids resuscitation and transfusion Resp status much improved after starting iv lasix monitor urine output and renal function closely # Reduce metoprolol to 25mg BID from 50 BID given systolic BP 100s DVT ppx: Scds only, lovenox contraindicated given Gi bleed Full code Dispo: Unable to carry out her ADLs alone at home, pending appropriate dispo planning. PT/ OT assessment Attestations Medical Necessity Statement*: ongoing iv diuresis, monitor kidney function, HB, disposition planning Coding Level of Care Code Acute Code for Chg Fwd Diagnoses Acute anemia D64.9 GI bleed K92.2 Elevated troponin R77.8 Acute CHF (congestive heart failure) I50.9
[2023-02-26] VITALS (13 sets, daily range): BP systolic 93–113; BP diastolic 41–63; PULSE 75–98; RESP 15–18; TEMP 36.4–36.9; O2SAT 81–97
--- NOTE | 2023-02-26 04:00 | XRR_ITS ---
PROCEDURE INFORMATION: Exam: XR Chest Exam date and time: 02/26/2023 4:17 AM Age: 77 years old Clinical indication: Cardiovascular condition or disease; Congestive heart failure (chf); Cause unknown; Patient HX: Follow up chf; Melanotic stool x 3 days; Chest pain; Acute anemia; Gi bleed TECHNIQUE: Imaging protocol: Radiologic exam of the chest. 2image(s) are provided. Views: 1 view. COMPARISON: 1. CR XR chest 1V portable [id number] 02/24/2023 12:[address] [place] [id number] 02/04/2023 2:34 AM FINDINGS: Tubes, catheters and devices: There is a right PICC line present similar overall. Lungs: There is improved lung volume and aeration. There is linear subsegmental atelectasis versus post inflammatory scarring demonstrated.No lobar consolidation is appreciated. There is decreased subpleural septal line thickening. Pleural spaces: There is some minimal costophrenic angle blunting also decreased. No pneumothorax is appreciated. Heart/Mediastinum: The cardiomediastinal silhouette is upper normal in size.This can be seen with central vascular averaging as well as wanda enlargement.No cardiac decompensation is appreciated. Diaphragm: The hemidiaphragms are symmetric. Bones/joints: There is some post interventional appearance of the left humeral head similar overall. No interval displaced fracture or dislocation is appreciated. Soft tissues: No radiopaque foreign body or subcutaneous emphysema is appreciated. Other findings: No other significant interval changes are appreciated. XR/XR chest 1V portable [id number] IMPRESSION: There is improving central and basal aeration overall with decreased interstitial edematous appearance overall as compared to the previous study.
[2023-02-26 04:32] LABS: Basophils # 0.1 10^3/uL (0.0-0.1); Basophils % 1.3 %; Eosinophils # 0.3 10^3/uL (0.0-0.8); Eosinophils % 6.5 %; Hematocrit 34.9 % (37.0-47.0); Hemoglobin 10.6 g/dL (11.5-15.3); Lymphocytes # 1.1 10^3/uL (0.8-4.8); Lymphocytes % 29.4 %; Mean Corpuscular HGB Conc 30.4 g/dL (30.0-36.0); Mean Corpuscular Hemoglobin 30.4 pg (28.0-34.0); Mean Platelet Volume 10.9 fL (7.4-10.4); Monocytes # 0.4 10^3/uL (0.2-0.9); Monocytes % 9.9 %; Neutrophils # 2.03 10^3/uL (1.8-7.7); Neutrophils % 52.6 %; Nucleated Red Blood Cells % 0 %; Platelet Count 195 10^3/cmm (130-400); Red Blood Count 3.49 10^6/uL (4.1-5.3); Red Cell Distribution Width 16.3 % (12.1-15.1); White Blood Count 3.9 10^3/uL (4.0-10.0)
[2023-02-26 04:53] LABS: Alanine Aminotransferase 6 U/L (0-33); Albumin Level 3.4 g/dL (3.5-5.2); Alkaline Phosphatase 113 U/L (35-105); Aspartate Amino Transferase 13 U/L (0-32); Blood Urea Nitrogen 17 mg/dL (8-23); Calcium 8.8 mg/dL (8.5-10.5); Carbon Dioxide 23 mmol/L (22-29); Chloride 106 mmol/L (98-107); Globulin 2.9 g/dL (1.3-4.6); Glucose 82 mg/dL (65-115); Osmolality Calculated 297 mOsm/kg (285-295); Slide Review Slide Review Perform; Sodium 143 mmol/L (136-145); Total Bilirubin 0.8 mg/dL (0.15-1.2); Total Protein 6.3 g/dL (6.6-8.7)
[2023-02-26] MEDS: potassium chloride ER 10 mEq Tablet PO (08:13)
[2023-02-26] MEDS: ipratropium-albuterol 3 mL Neb INHALATION ×3 (08:59→21:07)
[2023-02-26] MEDS: potassium chloride ER 20 mEq Tablet 40 MEQ PO (09:21)
[2023-02-26] MEDS: pantoprazole 40 mg SDV IVP ×2 (09:21→21:34)
--- NOTE | 2023-02-26 12:37 | PC.SOCIAL ---
IMM Updated Updated pt on IMM. No questions voiced. Provided pt a copy. Initialed, dated, & timed copy in chart.
[2023-02-26] MEDS: atorvastatin 40 mg Tablet PO (18:39)
--- NOTE | 2023-02-26 20:55 | PM.PN ---
Subjective Subjective: Patient denies chest pain. Denies melena. Endorses weakness and fatigue. Denies chest pain, fevers, or chills. Medications: Reviewed: Yes Vitals/I&O/Wt Last Vital Signs Temp 98.4 F 02/26/23 19:56 Pulse 87 02/26/23 19:56 Resp 17 02/26/23 19:56 BP 100/59 02/26/23 19:56 Pulse Ox 95 02/26/23 19:56 O2 Del Method Room Air 02/26/23 19:56 O2 Flow Rate 2 02/26/23 14:05 02/26/23 02/26/23 02/26/23 06:59 14:59 22:59 Intake Total 378 / 378 260 / 638 Output Total 1650 / 1650 400 / 400 Balance -1650 / -540 -22 / -22 260 / 238 Physical Exam Narrative: General: Patient is awake and alert. Frail appearing. Head: Normocephalic. Atraumatic. EOM intact. Neck: No JVD. Cardiovascular: No gallops. No murmurs. Lungs: Clear to auscultation, no use of accessory muscles, no crackles or wheezes. Skin: No jaundice. No rashes. Abdomen: Soft. Not distended. Normal bowel sounds. Extremities: No cyanosis or clubbing. Musculoskeletal: Poor muscular development. Neurological: No myoclonus. Moves all 4 extremities. Urinary Catheter Management: Velasquez: Cath Placed During This Visit: yes, but has since been removed by the nurse Reason for Continuing Indwelling Catheter: Does Not Meet Criteria Urinary Catheter Date of Insertion: 02/24/23 Urinary Catheter Time of Insertion: 14:46 Date Urinary Catheter Removed: 02/26/23 Time Urinary Catheter Discontinued: 08:40 Data 02/26/23 04:05 02/26/23 04:05 Micro: Microbiology 02/24/23 14:38 Urine Culture - Preliminary Urine,Clean Catch Yeast species A&P Assessment and plan (1) Acute anemia: Suspect 2/2 DAWN and GI blood loss HGB stable Melena reportedly resolved Hold DAPT PPI Continue medical management (2) GI bleed: Seems have resolved Repeat labs in AM (3) Elevated troponin: Patient has known CAD, declined bypass (4) Acute CHF (congestive heart failure): Still requiring oxygen, wean as tolerated Remove Velasquez Diuresis as tolerated Plan DVT ppx: SCD Code: Full Attestations Medical Necessity Statement*: Pt requires ongoing medical care for serial labs and supportive care. Coding Level of Care Code Acute Code for Chg Fwd Diagnoses Acute anemia D64.9 GI bleed K92.2 Elevated troponin R77.8 Acute CHF (congestive heart failure) I50.9
[2023-02-27] VITALS (13 sets, daily range): BP systolic 103–120; BP diastolic 57–69; PULSE 82–111; RESP 15–17; TEMP 36.6–36.9; O2SAT 93–100
[2023-02-27] MEDS: FUROsemide 10 mg/mL SDV 4mL 40 MG IVP ×2 (00:02→22:28)
[2023-02-27] MEDS: ipratropium-albuterol 3 mL Neb INHALATION ×4 (02:28→21:14)
[2023-02-27 04:59] LABS: Eosinophils # 0.2 10^3/uL (0.0-0.8); Eosinophils % 5.9 %; Hematocrit 33.9 % (37.0-47.0); Hemoglobin 10.7 g/dL (11.5-15.3); Lymphocytes # 1.5 10^3/uL (0.8-4.8); Lymphocytes % 35.7 %; Mean Corpuscular HGB Conc 31.6 g/dL (30.0-36.0); Mean Corpuscular Hemoglobin 30.2 pg (28.0-34.0); Mean Corpuscular Volume 95.8 fl (81-99); Mean Platelet Volume 10.1 fL (7.4-10.4); Monocytes # 0.4 10^3/uL (0.2-0.9); Monocytes % 10.1 %; Neutrophils # 1.91 10^3/uL (1.8-7.7); Neutrophils % 47.1 %; Nucleated Red Blood Cells % 0 %; Platelet Count 189 10^3/cmm (130-400); Red Blood Count 3.54 10^6/uL (4.1-5.3); Red Cell Distribution Width 15.4 % (12.1-15.1); White Blood Count 4.1 10^3/uL (4.0-10.0)
[2023-02-27 05:22] LABS: Magnesium 1.8 mg/dL (1.7-2.3)
[2023-02-27 05:40] LABS: Albumin Level 3.3 g/dL (3.5-5.2); Anion Gap 16.5 (5-19); Blood Urea Nitrogen 15 mg/dL (8-23); Calcium 9.3 mg/dL (8.5-10.5); Carbon Dioxide 25 mmol/L (22-29); Chloride 105 mmol/L (98-107); Glucose 77 mg/dL (65-115); Phosphorus 3.6 mg/dL (2.5-4.5); Potassium 3.5 mmol/L (3.5-5.1); Sodium 143 mmol/L (136-145)
[2023-02-27] MEDS: metoprolol tartrate 50 mg Tablet 25 MG PO (05:55)
[2023-02-27] MEDS: potassium chloride ER 10 mEq Tablet PO (08:48)
[2023-02-27] MEDS: ferrous sulfate EC 325 mg Tablet PO (08:48)
[2023-02-27] MEDS: pantoprazole DR 40 mg Tablet PO (11:16)
[2023-02-27] MEDS: atorvastatin 40 mg Tablet PO (18:19)
--- NOTE | 2023-02-27 18:52 | PM.PN ---
Subjective Subjective: Patient was seen and examined this morning no acute events, so far H&H is stable. Medications: Reviewed: Yes Medication Review Details: Generic Name Dose Route Start Last Admin Trade Name Deena PRN Reason Stop Dose Admin Albuterol/Ipratrop ium 3 ml 02/24/23 14:00 02/27/23 15:15 Ipratropium-Albu terol 3 Ml Neb INHALATION 3 ml Q6H.RESP KORTNEY Administration Ascorbic Acid 1,000 mg 02/22/23 07:00 02/23/23 06:13 Ascorbic Acid 50 0 Mg Tablet PO Not Given BID@ [facility] Atorvastatin Calci um 40 mg 02/22/23 19:00 02/27/23 18:19 Atorvastatin 40 Mg Tablet PO 40 mg BEDTIME@ [facility] Administration Ferrous Sulfate 325 mg 02/23/23 09:00 02/27/23 08:48 Ferrous Sulfate Ec 325 Mg Tablet PO 325 mg EVERY OTHER DAY [facility] Administration Fluticasone Propio christian 1 spray 02/22/23 07:00 02/23/23 06:13 Fluticasone Nasa l Declo 16gm Btl INTRANASAL Not Given DAILY@07 [facility] Furosemide 40 mg 02/24/23 23:20 02/27/23 00:02 Furosemide 10 Mg /Ml Sdv 4ml IVP 40 mg Q24H KORTNEY Administration Isosorbide Dinitra te 10 mg 02/22/23 09:00 02/23/23 08:38 Isosorbide Dinit rate 20 Mg Tablet PO 10 mg BID [facility] Administration Metoprolol Tartrat e 25 mg 02/26/23 07:00 02/27/23 18:19 Metoprolol Tartr ate 50 Mg Tablet PO Not Given BID@ [facility] Multivitamins Ther apeutic 1 tab 02/22/23 07:00 02/23/23 06:13 Multivitamin The rapeutic Tablet PO Not Given DAILY@07 [facility] Nitroglycerin 0.4 mg 02/21/23 21:43 02/23/23 02:21 Nitroglycerin 0. 4 Mg Sublingual Ta blet SUBLINGUAL 0.4 mg Q5M PRN Administration chest pain Pantoprazole Sodiu m 40 mg 02/27/23 09:45 02/27/23 11:[address] 40 Mg Tablet PO 40 mg DAILY [facility] Administration Potassium Chloride 10 meq 02/22/23 09:00 02/27/23 08:48 Potassium Chlori de Er 10 Meq Table t PO 10 meq DAILY KORTNEY Administration Vitals/I&O/Wt Last Vital Signs Temp 98.2 F 02/27/23 15:09 Pulse 86 02/27/23 15:17 Resp 15 02/27/23 15:09 BP 106/57 02/27/23 15:09 Pulse Ox 100 02/27/23 15:09 O2 Del Method Nasal Cannula 02/27/23 15:05 O2 Flow Rate 2 02/27/23 15:05 02/27/23 02/27/23 02/27/23 06:59 14:59 22:59 Intake Total 120 / 758 240 / 240 240 / 480 Balance 120 / 358 240 / 240 240 / 480 Physical Exam Resp: COMMON NORMALS: clear to auscultation bilaterally EFFORT & INSPECTION: Yes symmetric chest movement AUSCULTATION: clear to auscultation bilaterally Cardio: COMMON NORMALS: regular rate, regular rhythm, S1 normal heart sound present, S2 normal heart sound present, No gallops present (Cardio), No murmurs present (Cardio), No rub (Cardio) and Peripheral pulses 2+ throughout RATE: regular rate RHYTHM: regular rhythm HEART SOUNDS: S1 normal heart sound present and S2 normal heart sound present PERIPHERAL PULSES: Peripheral pulses 2+ throughout GI: COMMON NORMALS: Normal to inspection, nondistended, normoactive bowel sounds present, Soft to palpation, non-tender, No hepatosplenomegaly present and no masses AUSCULTATION: Yes normoactive bowel sounds PALPATION: Yes Soft to palpation and Yes No hepatosplenomegaly present RECTAL EXAM: deferred Extremity: COMMON NORMALS: no clubbing, cyanosis or edema and no pedal edema Urinary Catheter Management: Velasquez: Cath Placed During This Visit: yes, but has since been removed by the nurse Reason for Continuing Indwelling Catheter: Does Not Meet Criteria Urinary Catheter Date of Insertion: 02/24/23 Urinary Catheter Time of Insertion: 14:46 Date Urinary Catheter Removed: 02/26/23 Time Urinary Catheter Discontinued: 08:40 Data 02/27/23 04:11 02/27/23 04:11 A&P Assessment and plan (1) Acute anemia: likely secondary to iron deficiency and upper GI bleed HGB stable Melena reportedly resolved Hold DAPT PPI Continue medical management (2) GI bleed: Plan as above monitor H&H (3) Elevated troponin: Patient has known CAD, declined bypass (4) Acute CHF (congestive heart failure): Still requiring oxygen, wean as tolerated Remove Velasquez Diuresis as tolerated Plan DVT ppx: SCD Code: Full Attestations Medical Necessity Statement*: Awaiting placement. Coding Level of Care Code Acute Code for Chg Fwd Diagnoses Acute anemia D64.9 GI bleed K92.2 Elevated troponin R77.8 Acute CHF (congestive heart failure) I50.9
[2023-02-28] VITALS (7 sets, daily range): BP systolic 111–126; BP diastolic 68–77; PULSE 88–103; RESP 15–18; TEMP 36.3–36.7; O2SAT 95–99
[2023-02-28] MEDS: ipratropium-albuterol 3 mL Neb INHALATION ×2 (03:16→08:29)
[2023-02-28] MEDS: metoprolol tartrate 50 mg Tablet 25 MG PO (06:04)
[2023-02-28] MEDS: pantoprazole DR 40 mg Tablet PO (08:28)
[2023-02-28] MEDS: potassium chloride ER 10 mEq Tablet PO (08:28)
--- NOTE | 2023-02-28 10:25 | P.DS_ITS ---
Discharge Providers Date of Admission: 02/21/23 20:52 Date of Discharge: February 28, 2023 Attending Provider at Admission: Mar Roman MD Attending Provider at Discharge: Timothy Castelan MD Primary Care Provider: Catalino Sanders MD Diagnoses at Discharge Discharge Diagnosis (1) Acute anemia: Status: Acute (2) GI bleed: Status: Acute (3) Elevated troponin: Status: Acute (4) Acute CHF (congestive heart failure): Status: Acute Reason for Visit Reason for Visit: GI Bleed Hospital Course Hospital Course 77F w/ recent history of UTI, chronic ureteral stent, last exchanged on February 08 and recent ESBL E. coli infection who has just completed treatment with ertapenem for 14 days at SNF.? Her other comorbidities include heart failure with last known EF of 35 to 40%, recurrent admissions in the past related to CHF exacerbation, NSTEMI in June 2022 which needed to be managed medically as he had a complicated vascular anatomy.? CABG was recommended which the patient declined. She was admitted to the hospital with chief complaints of melanotic stools along with a hemoglobin drop to 6.4. During the hospital stay she was ma naged for GI bleed, she was managed conservatively with Protonix, blood transfusion, IV fluids,she was planned for EGD/colono however anesthesia declined to do the procedure as she had elevated troponins and c/o chest pain, hence the procedure was aborted, during the hospital stay aspirin and Plavix was kept on hold, upon discharge aspirin has been resumed, Plavix has been kept on hold, she will follow with repeat CBC in a week with the primary care physician, at that point in time H&H can be assessed, and if stable, Plavix can be resumed. She is being discharged on p.o. Protonix. Patient is being discharged in stable condition to SNF Physical Exam Resp: COMMON NORMALS: clear to auscultation bilaterally EFFORT & INSPECTION: Yes symmetric chest movement AUSCULTATION: clear to auscultation bilaterally Cardio: COMMON NORMALS: regular rate, regular rhythm, S1 normal heart sound present, S2 normal heart sound present, No gallops present (Cardio), No murmurs present (Cardio), No rub (Cardio) and Peripheral pulses 2+ throughout RATE: regular rate RHYTHM: regular rhythm HEART SOUNDS: S1 normal heart sound present and S2 normal heart sound present PERIPHERAL PULSES: Peripheral pulses 2+ throughout GI: COMMON NORMALS: Normal to inspection, nondistended, normoactive bowel sounds present, Soft to palpation, non-tender, No hepatosplenomegaly present and no masses AUSCULTATION: Yes normoactive bowel sounds PALPATION: Yes Soft to palpation and Yes No hepatosplenomegaly present RECTAL EXAM: deferred Extremity: COMMON NORMALS: no clubbing, cyanosis or edema and no pedal edema Urinary Catheter Management: Velasquez: Cath Placed During This Visit: yes, but has since been removed by the nurse Reason for Continuing Indwelling Catheter: Does Not Meet Criteria Urinary Catheter Date of Insertion: 02/24/23 Urinary Catheter Time of Insertion: 14:46 Date Urinary Catheter Removed: 02/26/23 Time Urinary Catheter Discontinued: 08:40 Discharge Data Studies Completed and Pending Completed Studies During Hospitalization Category Date Time Status CXRP [XR chest 1V portable [id number]] AM LABS Exams 02/26/23 04:00 Completed CXRP [XR chest 1V portable [id number]] Stat Exams 02/24/23 13:53 Completed Pending at discharge Category Date Time Status Urine Culture Routine Lab 02/24/23 14:38 Results Radiology Impressions Chest X-Ray 02/26/23 04:00 IMPRESSION: There is improving central and basal aeration overall with decreased interstitial edematous appearance overall as compared to the previous study. Laboratory Results WBC 4.1 10^3/uL (4.0-10.0) 02/27/23 04:11 RBC 3.54 10^6/uL (4.1-5.3) L 02/27/23 04:11 Hgb 10.7 g/dL (11.5-15.3) L 02/27/23 04:11 Hct 33.9 % (37.0-47.0) L 02/27/23 04:11 MCV 95.8 fl (81-99) 02/27/23 04:11 MCH 30.2 pg (28.0-34.0) 02/27/23 04:11 MCHC 31.6 g/dL (30.0-36.0) 02/27/23 04:11 RDW 15.4 % (12.1-15.1) H 02/27/23 04:11 Plt Count 189 10^3/cmm (130-400) 02/27/23 04:11 MPV 10.1 fL (7.4-10.4) 02/27/23 04:11 Neut % (Auto) 47.1 % 02/27/23 04:11 Lymph % (Auto) 35.7 % 02/27/23 04:11 [place] % (Auto) 10.1 % 02/27/23 04:11 Eos % (Auto) 5.9 % 02/27/23 04:11 Baso % (Auto) 1.0 % 02/27/23 04:11 Neut # (Auto) 1.91 10^3/uL (1.8-7.7) 02/27/23 04:11 Lymph # (Auto) 1.5 10^3/uL (0.8-4.8) 02/27/23 04:11 [place] # (Auto) 0.4 10^3/uL (0.2-0.9) 02/27/23 04:11 Eos # (Auto) 0.2 10^3/uL (0.0-0.8) 02/27/23 04:11 Baso # (Auto) 0.0 10^3/uL (0.0-0.1) 02/27/23 04:11 Nucleated RBC % (auto) 0 % 02/27/23 04:11 Nucleated RBCs # 0.0 /100WBC 02/27/23 04:11 PT 14.30 SECONDS (12.1-14.9) 02/21/23 18:50 INR 1.08 (0.8-1.2) 02/21/23 18:50 Sodium 143 mmol/L (136-145) 02/27/23 04:11 Potassium 3.5 mmol/L (3.5-5.1) 02/27/23 04:11 Chloride 105 mmol/L (98-107) 02/27/23 04:11 Carbon Dioxide 25 mmol/L (22-29) 02/27/23 04:11 Anion Gap 16.5 (5-19) 02/27/23 04:11 BUN 15 mg/dL (8-23) 02/27/23 04:11 Creatinine 1.1 mg/dL (0.5-0.9) H 02/27/23 04:11 GFR Calculation Not Reportable 02/27/23 04:11 Glucose 77 mg/dL (65-115) 02/27/23 04:11 Calculated Osmolality 297 mOsm/kg (285-295) H 02/26/23 04:05 Calcium 9.3 mg/dL (8.5-10.5) 02/27/23 04:11 Phosphorus 3.6 mg/dL (2.5-4.5) 02/27/23 04:11 Magnesium 1.8 mg/dL (1.7-2.3) 02/27/23 04:11 Total Bilirubin 0.8 mg/dL (0.15-1.2) 02/26/23 04:05 AST 13 U/L (0-32) 02/26/23 04:05 ALT 6 U/L (0-33) 02/26/23 04:05 Alkaline Phosphatase 113 U/L (35-105) H 02/26/23 04:05 Troponin T Gen 5 ng/L 69 ng/L (0-10) H 02/25/23 04:50 Troponin T Baseline 59 ng/L (0-10) H 02/22/23 02:58 Troponin T 120 Minute 62.35 ng/L (0-10) H 02/22/23 05:09 Delta Troponin T 3.35 ABS# (0-10) 02/22/23 05:09 Troponin T Hi Sens 6Hr 66.44 ng/L (0-10) H 02/22/23 09:16 Troponin T Hi Sens 6Hr Delta 7.44 ng/L (0-12) 02/22/23 09:16 Total Protein 6.3 g/dL (6.6-8.7) L 02/26/23 04:05 Albumin 3.3 g/dL (3.5-5.2) L 02/27/23 04:11 Globulin 2.9 g/dL (1.3-4.6) 02/26/23 04:05 Urine Color Yellow (Yellow) 02/24/23 14:38 Urine Appearance Cloudy (CLEAR) A 02/24/23 14:38 Urine pH 5 (5-7) 02/24/23 14:38 Ur Specific [place] 1.020 (1.005-1.030) 02/24/23 14:38 Urine Protein Neg (Negative) 02/24/23 14:38 Urine Glucose (UA) Norm (Normal) 02/24/23 14:38 Urine Ketones 1+ (Negative) H 02/24/23 14:38 Urine Blood 3+ (Negative) H 02/24/23 14:38 Urine Nitrate Negative (Negative) 02/24/23 14:38 Urine Bilirubin Neg (Negative) 02/24/23 14:38 Urine Urobilinogen Norm mg/dL (Negative) 02/24/23 14:38 Ur Leukocyte Esterase 2+ (Negative) H 02/24/23 14:38 Urine RBC 25-40 /hpf (0-2) H 02/24/23 14:38 Urine WBC 80-100 /hpf (0-5) H 02/24/23 14:38 Ur Squamous Epith Cells 0-4 /hpf (0-5) H 02/24/23 14:38 Amorphous Sediment Not Reportable 02/24/23 14:38 Urine Bacteria 1+ /hpf (NONE) H 02/24/23 14:38 Urine Mucus 2+ /hpf 02/24/23 14:38 Urine Yeast 2+ /hpf H 02/24/23 14:38 Blood Type O Positive 02/21/23 18:50 Rho(D) Type Positive 02/21/23 18:50 Antibody Screen Negative 02/21/23 18:50 Crossmatch See Detail 02/21/23 18:50 Vitals Last Vital Signs Temp 97.5 F L 02/28/23 07:58 Pulse 88 02/28/23 08:00 Resp 18 02/28/23 08:00 BP 126/68 02/28/23 07:58 Pulse Ox 95 02/28/23 08:00 O2 Del Method Nasal Cannula 02/28/23 08:00 O2 Flow Rate 2 02/28/23 08:00 Discharge Plan Discharge Patient Disposition: Xfer SNF Condition: Stable Prescriptions: New pantoprazole 40 mg Tablet,Delayed Release (Dr/Ec) 40 mg PO DAILY 30 Days Qty: 30 3RF Vitamin C 500 mg Tablet 1,000 mg PO BID@ 30 Days Qty: 60 0RF ferrous sulfate 325 mg (65 mg iron) Tablet,Delayed Release (Dr/Ec) 325 mg PO EVERY OTHER DAY 30 Days Qty: 15 3RF Continued nitroglycerin 0.4 mg tablet, sublingual 0.4 mg sublingual Q5M PRN (Reason: chest pain) Qty: 25 3RF Rx Instructions: do not exceed 3 doses per episode fluticasone propionate [Flonase Allergy Relief] 50 mcg/actuation spray,suspension 1 spray intranasal DAILY@07 Rx Instructions: administer into each nostril multivitamin Tablet 1 tab PO DAILY@07 ascorbic acid (vitamin C) [Vitamin C] 500 mg Tablet 1,000 mg PO BID@ methenamine hippurate 1 gram tablet 1 g PO BID@ Rx Instructions: Take 1000 mg of Vitamin C with each dose of Methenamine potassium chloride [Klor-Con 10] 10 mEq Tablet Extended Release 10 meq PO DAILY furosemide [Lasix] 40 mg tablet 20 mg PO DAILY PRN (Reason: Edema) 30 Days Qty: 30 1RF Rx Instructions: *medication has been on hold for 2 weeks as of 01/23/23 per pt* ferrous sulfate 325 mg (65 mg iron) tablet,delayed release (DR/EC) 325 mg PO EVERY OTHER DAY Qty: 90 0RF Milk of Magnesia 400 mg/5 mL Suspension 30 ml PO DAILY PRN (Reason: Constipation) Dulcolax (bisacodyl) 10 mg Suppository 10 mg SC DAILY PRN (Reason: Constipation) Invanz 1 gram Recon Soln 1 g IM DAILY isosorbide dinitrate 10 mg tablet 10 mg PO BID Qty: 60 0RF Rx Instructions: allow nitrate-free interval of 12-14 hrs per 24-hr period atorvastatin 40 mg tablet 40 mg PO BEDTIME@19 Qty: 30 0RF aspirin 81 mg Tablet,Delayed Release (Dr/Ec) 81 mg PO DAILY@07 Qty: 30 0RF metoprolol tartrate 50 mg tablet 50 mg PO BID@ Qty: 60 0RF Held clopidogrel 75 mg tablet 75 mg PO DAILY@07 Qty: 30 0RF Hold Instructions: Resume on 03/07/23. follow with repeat CBC in a week with pcp before resuming it. Discharge Orders: Discharge Order (Routine); Ordered 02/28/23 Ordered By: Timothy Castelan Other Ambulatory Orders: Complete Blood Count w/Auto (Routine) Timeframe: 1 Week Location: Determined by Patient Ordered By: Timothy Castelan Referrals: [facility]– [place] [Outside] Catalino Sanders MD [Primary Care Provider] - 1 week Patient Instructions: GI Discharge Instructions, Opioid Safety Discharge Attestations Time Spent in Discharge Care*: less than 30 min Quality Metrics Clinical Quality Measures [ No reported AMI, CVA or VTE this stay] Coding Level of Care Code Acute Code for Chg Fwd Diagnoses Acute anemia D64.9 GI bleed K92.2 Elevated troponin R77.8 Acute CHF (congestive heart failure) I50.9
--- NOTE | 2023-02-28 11:00 | PC.SOCIAL ---
IMM Updated Updated pt on IMM. No questions voiced. Provided pt a copy. Initialed, dated, & timed copy in chart.
[2023-02-28 11:47] LABS: SARS Covid-2 Antigen negative (Negative)
== END 2023-02-28 14:29 | disposition skilled nursing facility (03) | DRG 377 ==
LOC: ER 20:18 → MEDSURG 21:24
PROVIDERS: Internal Medicine; Student in an Organized Health Care Education/Training Program; Surgery; Admitting Provider Internal Medicine; Emergency Provider Emergency Medicine; PCP Family Medicine; Visit Provider Internal Medicine
PROC: 0DJ08ZZ Inspection of Upper Intestinal Tract, Via Natural or Artificial Opening Endoscopic (ICD-10-PCS; CPT 43235; principal; 2023-02-23 11:00)
DX: K92.1 Melena (principal); I50.23 Acute on chronic systolic (congestive) heart failure; D50.0 Iron deficiency anemia secondary to blood loss (chronic); R77.8 Other specified abnormalities of plasma proteins; I11.0 Hypertensive heart disease with heart failure; Z87.440 Personal history of urinary (tract) infections; Z96.0 Presence of urogenital implants; I25.2 Old myocardial infarction; Z79.82 Long term (current) use of aspirin; J43.9 Emphysema, unspecified; I73.9 Peripheral vascular disease, unspecified; I25.10 Atherosclerotic heart disease of native coronary artery without angina pectoris; F17.210 Nicotine dependence, cigarettes, uncomplicated; Z96.641 Presence of right artificial hip joint; R07.9 Chest pain, unspecified
CPT/HCPCS: 12345; 36415; 36430; 36569; 51702; 71045; 80053; 80069; 81001; 83735; 84484; 85025; 85610; 86850; 86900; 86920; 87086; 87106; 87426; 93005; 94640; 94664; 94760; 96365; 96366; 96375; 97110; 97116; 97161; 97530; 99222; 99285; C9113; J1940; J7030; J7040; P9016

== ENCOUNTER 2023-03-02 13:23 | Emergency (ER) | payer MEDICARE, MEDICAID, SELFPAY ==
[2023-03-02 13:31] VITALS: BP 121/59; PULSE 99; RESP 18; TEMP 36.6; O2SAT 97; BMI 19.3
--- NOTE | 2023-03-02 13:47 | PC.PHAR ---
pt is from [facility] [phone]-per guadalupe from [facility] states pt had all am meds-states the pts plavix is on hold states restart date is 03/07/23-
--- NOTE | 2023-03-02 13:53 | ED_ITS ---
HPI - GI Bleed General: Chief complaint: GI Bleed Stated complaint: black stool Time Seen by Provider: 03/02/23 13:28 Source: patient Mode of arrival: EMS History of Present Illness: 77-year-old female presents emergency room with a reported transient hypotension. She has a history of GI bleed and was transfused a week ago she is on iron she has begun to have dark stools they are concerned she may be bleeding again she has not had any hematemesis coffee-ground emesis has not had any hematochezia. She otherwise is feeling fine no abdominal pain or discomfort. She is on aspirin and clopidogrel but is not on any anticoagulants. MD complaint: other (Black stools) Relieving factors: none Exacerbating factors: none Context: history of GI bleed Associated symptoms: Denies abdominal pain, chills, easy bruising, epistaxis, fever(s), headache(s), malaise, nausea, other bleeding, poor appetite, rash, syncope, vomiting or weakness Review of Systems Const: Denies: fever(s), chills or malaise ENMT: Denies: epistaxis Card: Denies: syncope GI: Denies: abdominal pain, nausea or vomiting Skin/Breast: Denies: rash Neuro: Denies: headache(s) Elia/Lymph: Denies: easy bruising PFSH ED PFSH: Medical History Acute anemia Acute CHF (congestive heart failure) Acute exacerbation of chronic obstructive pulmonary disease Acute systolic CHF (congestive heart failure) Bacteriuria CAD (coronary artery disease) Cardiogenic shock Cardiomyopathy COPD (chronic obstructive pulmonary disease) Cystitis Dehydration Dyslipidemia Elevated troponin Elevated troponin Elevated troponin I level Emphysema lung Essential hypertension Extrinsic ureteral obstruction Fall GI bleed Heart failure Heart failure, systolic, with acute decompensation Hip pain Hypoxia Lactic acidosis NSTEMI (non-ST elevated myocardial infarction) Peripheral arterial disease Pyuria Respiratory failure with hypoxia and hypercapnia Retained ureteral stent Systolic CHF Tobacco abuse Upper gastrointestinal hemorrhage Urinary incontinence UTI (urinary tract infection) Surgical History H/O arthroscopic knee surgery bilateral H/O oral surgery H/O shoulder surgery H/O total hip arthroplasty right H/O: H/O: hysterectomy History of colon surgery Family History Mother , at age 79 Hypertension Peripheral artery disease Diabetes Father , at age 47 Cancer pancreatic and lung Social History Smoking and tobacco status: current some day smoker (quitting) cigarettes Packs smoked per day: 0.5 Years cigarettes smoked: 60 [ Other cigarette details: Hx of 1 PPD x 50 Years] Second hand smoke exposure: Yes Smoking risk assessment/counseling performed?: Yes Alcohol intake: never Substance/Drug Use: never Lives independently: Yes Housing: Apartment Marital status: Legally Current occupational status: retired and disabled Do you think of yourself as: Straight/Heterosexual Current gender identity: Female Physical Exam Const: GENERAL APPEARANCE: cooperative and comfortable ORIENTATION/CONSCIOUSNESS: Yes awake, Yes oriented to person, Yes oriented to place and Yes oriented to time HENMT: COMMON NORMALS: normocephalic, atraumatic and hearing grossly normal bilaterally HEAD & SCALP: normocephalic and atraumatic Resp: COMMON NORMALS: normal respiratory effort, No retractions, No use of accessory muscles and clear to auscultation bilaterally AUSCULTATION: clear to auscultation bilaterally Cardio: COMMON NORMALS: regular rate, regular rhythm and No murmurs present (Cardio) RATE: regular rate RHYTHM: regular rhythm GI: COMMON NORMALS: Soft to palpation and No hepatosplenomegaly present AUSCULTATION: Yes normoactive bowel sounds PALPATION: Yes Soft to palpation, No Tenderness to palpation present (GI), No Guarding due to palpation present (GI) and Yes No hepatosplenomegaly present OTHER: Unremarkable rectal exam dark stool is Hemoccult negative Extremity: COMMON NORMALS: normal to inspection, capillary refill normal, no clubbing, cyanosis or edema, no calf tenderness and no pedal edema Neuro: SENSORIUM/ORIENTATION: Yes oriented to person, Yes oriented to place and Yes oriented to time Skin: COMMON NORMALS: no rashes or lesions noted GENERAL SKIN EXAM: no rashes or lesions noted Course Vital Signs: Vital signs: Vital Signs Temperature 97.8 F 03/02/23 13:31 Pulse Rate 101 H 03/02/23 15:59 Respiratory Rate 18 03/02/23 13:31 Blood Pressure 120/52 03/02/23 15:59 Pulse Oximetry 98 03/02/23 15:59 Oxygen Delivery Me thod Room Air 03/02/23 15:29 MDM - GI Bleed Medical Decision Making Hemoglobin stable rectal exam negative for blood I think the black stool being observed is due to her iron. Discharge back to longterm continue to follow- up with her primary care physician there. Medical Records I reviewed the patient's medical records. Lab Data I reviewed the patient's lab results. 03/02/23 13:45 03/02/23 13:45 Laboratory Results WBC 4.4 10^3/uL (4.0-10.0) 03/02/23 13:45 RBC 4.15 10^6/uL (4.1-5.3) 03/02/23 13:45 Hgb 12.5 g/dL (11.5-15.3) 03/02/23 13:45 Hct 39.8 % (37.0-47.0) 03/02/23 13:45 MCV 95.9 fl (81-99) 03/02/23 13:45 MCH 30.1 pg (28.0-34.0) 03/02/23 13:45 MCHC 31.4 g/dL (30.0-36.0) 03/02/23 13:45 RDW 14.6 % (12.1-15.1) 03/02/23 13:45 Plt Count 229 10^3/cmm (130-400) 03/02/23 13:45 MPV 10.4 fL (7.4-10.4) 03/02/23 13:45 Neut % (Auto) 54.1 % 03/02/23 13:45 Lymph % (Auto) 33.0 % 03/02/23 13:45 [place] % (Auto) 7.9 % 03/02/23 13:45 Eos % (Auto) 3.6 % 03/02/23 13:45 Baso % (Auto) 0.9 % 03/02/23 13:45 Neut # (Auto) 2.40 10^3/uL (1.8-7.7) 03/02/23 13:45 Lymph # (Auto) 1.5 10^3/uL (0.8-4.8) 03/02/23 13:45 [place] # (Auto) 0.4 10^3/uL (0.2-0.9) 03/02/23 13:45 Eos # (Auto) 0.2 10^3/uL (0.0-0.8) 03/02/23 13:45 Baso # (Auto) 0.0 10^3/uL (0.0-0.1) 03/02/23 13:45 Nucleated RBC % (auto) 0 % 03/02/23 13:45 Nucleated RBCs # 0.0 /100WBC 03/02/23 13:45 Sodium 139 mmol/L (136-145) 03/02/23 13:45 Potassium 4.2 mmol/L (3.5-5.1) 03/02/23 13:45 Chloride 100 mmol/L (98-107) 03/02/23 13:45 Carbon Dioxide 26 mmol/L (22-29) 03/02/23 13:45 Anion Gap 17.2 (5-19) 03/02/23 13:45 BUN 16 mg/dL (8-23) 03/02/23 13:45 Creatinine 1.4 mg/dL (0.5-0.9) H 03/02/23 13:45 GFR Calculation Not Reportable 03/02/23 13:45 Glucose 102 mg/dL (65-115) 03/02/23 13:45 Calculated Osmolality 289 mOsm/kg (285-295) 03/02/23 13:45 Calcium 9.7 mg/dL (8.5-10.5) 03/02/23 13:45 Total Bilirubin 0.6 mg/dL (0.15-1.2) 03/02/23 13:45 AST 12 U/L (0-32) 03/02/23 13:45 ALT 6 U/L (0-33) 03/02/23 13:45 Alkaline Phosphatase 129 U/L (35-105) H 03/02/23 13:45 Total Protein 7.1 g/dL (6.6-8.7) 03/02/23 13:45 Albumin 3.8 g/dL (3.5-5.2) 03/02/23 13:45 Globulin 3.3 g/dL (1.3-4.6) 03/02/23 13:45 Discharge Plan Discharge Patient Disposition: Home Clinical Impression: Black stool, History of GI bleed Condition: Stable Prescriptions: No Action nitroglycerin 0.4 mg tablet, sublingual 0.4 mg sublingual Q5M PRN (Reason: chest pain) Qty: 25 3RF Rx Instructions: do not exceed 3 doses per episode fluticasone propionate [Flonase Allergy Relief] 50 mcg/actuation spray,suspension 1 spray intranasal DAILY@07 Rx Instructions: administer into each nostril multivitamin Tablet 1 tab PO DAILY@ methenamine hippurate 1 gram tablet 1 g PO BID@ Rx Instructions: Take 1000 mg of Vitamin C with each dose of Methenamine potassium chloride [Klor-Con 10] 10 mEq Tablet Extended Release 10 meq PO DAILY@ ferrous sulfate 325 mg (65 mg iron) tablet,delayed release (DR/EC) 325 mg PO EVERY OTHER DAY Qty: 90 0RF magnesium hydroxide [Milk of Magnesia] 400 mg/5 mL Suspension 30 ml PO DAILY PRN (Reason: Constipation) bisacodyl [Dulcolax (bisacodyl)] 10 mg Suppository 10 mg AL DAILY PRN (Reason: Constipation) Vitamin C 1,000 mg Tablet 1,000 mg PO BID@ Fleet Enema 19-7 gram/118 mL Enema 118 ml AL DAILY PRN (Reason: Constipation) Lasix 20 mg Tablet 20 mg PO DAILY PRN (Reason: Edema) Zofran ODT 4 mg Tablet,Disintegrating 4 mg PO Q4H PRN (Reason: Nausea And Vomiting) isosorbide dinitrate 10 mg tablet 10 mg PO BID@ Rx Instructions: allow nitrate-free interval of 12-14 hrs per 24-hr period atorvastatin 40 mg tablet 40 mg PO BEDTIME@ clopidogrel 75 mg tablet 75 mg PO DAILY Rx Instructions: on hold per guadalupe from [facility] (restart 03/07/23) pantoprazole 40 mg tablet,delayed release (DR/EC) 40 mg PO DAILY@07 aspirin 81 mg Tablet,Delayed Release (Dr/Ec) 81 mg PO DAILY@ Qty: 30 0RF metoprolol tartrate 50 mg tablet 50 mg PO BID@ Qty: 60 0RF Discharge Orders: Discharge ED (Routine); Ordered 03/02/23 Ordered By: Ambrose Howell Referrals: Catalino Sanders MD [Primary Care Provider] - Discharge Diet: Usual diet Discharge Activity: Resume usual activity Patient Instructions: Opioid Safety, Pain Management Activity Restrictions/Additional Instructions: You are seen today with complaint of black stools. Your blood pressure was stable while you were here and your hemoglobin is stable as well at 12.5. Your Hemoccult on the stools was negative, the likely cause of the black stools is the iron supplement you are taking. Continue same medications and diet previously prescribed follow-up with your doctor through the longterm Coding Level of Care Code ED Parts Puller for Isi Calhoun
[2023-03-02 14:03] LABS: Basophils % 0.9 %; Eosinophils # 0.2 10^3/uL (0.0-0.8); Eosinophils % 3.6 %; Hematocrit 39.8 % (37.0-47.0); Hemoglobin 12.5 g/dL (11.5-15.3); Lymphocytes # 1.5 10^3/uL (0.8-4.8); Mean Corpuscular HGB Conc 31.4 g/dL (30.0-36.0); Mean Corpuscular Hemoglobin 30.1 pg (28.0-34.0); Mean Corpuscular Volume 95.9 fl (81-99); Mean Platelet Volume 10.4 fL (7.4-10.4); Monocytes # 0.4 10^3/uL (0.2-0.9); Monocytes % 7.9 %; Neutrophils % 54.1 %; Nucleated Red Blood Cells % 0 %; Platelet Count 229 10^3/cmm (130-400); Red Blood Count 4.15 10^6/uL (4.1-5.3); Red Cell Distribution Width 14.6 % (12.1-15.1); White Blood Count 4.4 10^3/uL (4.0-10.0)
[2023-03-02 14:30] LABS: Alanine Aminotransferase 6 U/L (0-33); Albumin Level 3.8 g/dL (3.5-5.2); Alkaline Phosphatase 129 U/L (35-105); Anion Gap 17.2 (5-19); Aspartate Amino Transferase 12 U/L (0-32); Blood Urea Nitrogen 16 mg/dL (8-23); Calcium 9.7 mg/dL (8.5-10.5); Carbon Dioxide 26 mmol/L (22-29); Chloride 100 mmol/L (98-107); Globulin 3.3 g/dL (1.3-4.6); Glucose 102 mg/dL (65-115); Osmolality Calculated 289 mOsm/kg (285-295); Potassium 4.2 mmol/L (3.5-5.1); Sodium 139 mmol/L (136-145); Total Bilirubin 0.6 mg/dL (0.15-1.2); Total Protein 7.1 g/dL (6.6-8.7)
[2023-03-02 14:35] VITALS: PULSE 96; O2SAT 96
[2023-03-02 15:29] VITALS: BP 102/45; PULSE 97; O2SAT 99
[2023-03-02 15:59] VITALS: BP 120/52; PULSE 101; O2SAT 98
== END 2023-03-02 16:02 | disposition home or self-care (01) ==
PROVIDERS: Emergency Provider Family Medicine; PCP Family Medicine
DX: R19.5 Other fecal abnormalities (principal); Z79.82 Long term (current) use of aspirin; Z79.02 Long term (current) use of antithrombotics/antiplatelets; I11.0 Hypertensive heart disease with heart failure; I50.9 Heart failure, unspecified; I25.10 Atherosclerotic heart disease of native coronary artery without angina pectoris; J44.9 Chronic obstructive pulmonary disease, unspecified; E78.5 Hyperlipidemia, unspecified; I25.2 Old myocardial infarction; F17.210 Nicotine dependence, cigarettes, uncomplicated
CPT/HCPCS: 80053; 85025; 99283

== ENCOUNTER 2023-03-30 14:05 | Emergency (ER) | payer MEDICARE, MEDICAID, SELFPAY ==
[2023-03-30 14:14] VITALS: BP 126/67; RESP 20; TEMP 36.8; O2SAT 95
--- NOTE | 2023-03-30 15:32 | XR_ITS ---
WS: [id number] Exam: XR chest 1V portable [id number] Date/Time of Exam: 03/30/2023 3:32 PM Reason For Exam: sob Comparison 02/26/2023. The lungs are hyperinflated and clear. Mild cardiac enlargement. No pleural effusions or pneumothorax . The mediastinum is normal in contour. Bony structures are intact. Orthopedic anchor in the left hum eral head. XR/XR chest 1V portable [id number] IMPRESSION: 1. Pulmonary hyperinflation which may indicate COPD. 2. Mild cardiac enlargement. No acute cardiopulmonary process noted.
[2023-03-30 15:54] LABS: Basophils % 1.1 %; Eosinophils # 0.1 10^3/uL (0.0-0.8); Eosinophils % 2.5 %; Hematocrit 30.5 % (37.0-47.0); Hemoglobin 8.9 g/dL (11.5-15.3); Lymphocytes # 1.2 10^3/uL (0.8-4.8); Lymphocytes % 32.6 %; Mean Corpuscular HGB Conc 29.2 g/dL (30.0-36.0); Mean Corpuscular Hemoglobin 30.1 pg (28.0-34.0); Mean Platelet Volume 9.7 fL (7.4-10.4); Monocytes # 0.3 10^3/uL (0.2-0.9); Monocytes % 8.6 %; Neutrophils # 1.96 10^3/uL (1.8-7.7); Neutrophils % 54.6 %; Nucleated Red Blood Cells % 0 %; Platelet Count 211 10^3/cmm (130-400); Red Blood Count 2.96 10^6/uL (4.1-5.3); Red Cell Distribution Width 15.1 % (12.1-15.1); White Blood Count 3.6 10^3/uL (4.0-10.0)
[2023-03-30 16:15] LABS: Alanine Aminotransferase < 5 U/L (0-33); Alkaline Phosphatase 110 U/L (35-105); Anion Gap 19.7 (5-19); Aspartate Amino Transferase 11 U/L (0-32); Blood Urea Nitrogen 29 mg/dL (8-23); Calcium 9.5 mg/dL (8.5-10.5); Carbon Dioxide 16 mmol/L (22-29); Chloride 109 mmol/L (98-107); Globulin 2.3 g/dL (1.3-4.6); Glucose 91 mg/dL (65-115); Osmolality Calculated 295 mOsm/kg (285-295); Potassium 4.7 mmol/L (3.5-5.1); Sodium 140 mmol/L (136-145); Total Bilirubin 0.3 mg/dL (0.15-1.2); Total Protein 6.3 g/dL (6.6-8.7)
[2023-03-30] MEDS: ipratropium-albuterol 3 mL Neb INHALATION (16:39)
[2023-03-30 16:40] VITALS: PULSE 98; RESP 18; O2SAT 98
--- NOTE | 2023-03-30 16:46 | W.ED.SOB ---
HPI - SOB/Dyspnea General: Chief Complaint: Shortness of Breath/Dyspnea Stated Complaint: sob Time Seen by Provider: 03/30/23 14:14 History of Present Illness: HPI Narrative: 77-year-old female with history of anxiety, COPD, CHF and hypertension presents emergency room with shortness of breath that started within the past 24 hours. Patient also reveals that she was very anxious and upon present emergency room patient was very anxious but denies any chest pain, cough, coughing up blood or vomiting blood. Leg swelling or calf tenderness. No sick contacts or recent foreign travel. Associated symptoms: Deny chest congestion, fever(s) or hemoptysis Review of Systems General: Reports: 10 or more systems reviewed and unremarkable except in HPI and below Const: Denies: fever(s), chills or body aches Resp: Reports: dyspnea; Denies: productive cough, non-productive cough, wheezing, stridor, pain on inspiration, change in phlegm color, hemoptysis, chest congestion or other Psych: Reports: anxiety and panic attacks; Denies: depression, mood swings, sleeping less, sleeping more or hopelessness PFSH ED PFSH: Medical History Acute anemia Acute CHF (congestive heart failure) Acute exacerbation of chronic obstructive pulmonary disease Acute systolic CHF (congestive heart failure) Bacteriuria CAD (coronary artery disease) Cardiogenic shock Cardiomyopathy COPD (chronic obstructive pulmonary disease) Cystitis Dehydration Dyslipidemia Elevated troponin Elevated troponin Elevated troponin I level Emphysema lung Essential hypertension Extrinsic ureteral obstruction Fall GI bleed Heart failure Heart failure, systolic, with acute decompensation Hip pain Hypoxia Lactic acidosis NSTEMI (non-ST elevated myocardial infarction) Peripheral arterial disease Pyuria Respiratory failure with hypoxia and hypercapnia Retained ureteral stent Systolic CHF Tobacco abuse Upper gastrointestinal hemorrhage Urinary incontinence UTI (urinary tract infection) Surgical History H/O arthroscopic knee surgery bilateral H/O oral surgery H/O shoulder surgery H/O total hip arthroplasty right H/O: H/O: hysterectomy History of colon surgery Family History Mother , at age 79 Hypertension Peripheral artery disease Diabetes Father , at age 47 Cancer pancreatic and lung Social History Smoking and tobacco status: current some day smoker (quitting) cigarettes Packs smoked per day: 0.5 Years cigarettes smoked: 60 [ Other cigarette details: Hx of 1 PPD x 50 Years] Second hand smoke exposure: Yes Smoking risk assessment/counseling performed?: Yes Alcohol intake: never Substance/Drug Use: never Lives independently: Yes Housing: Apartment Marital status: Legally Current occupational status: retired and disabled Do you think of yourself as: Straight/Heterosexual Current gender identity: Female Physical Exam Const: COMMON NORMALS: no acute distress, average body habitus, patient oriented x3, no limitations, healthy appearing, alert and well nourished GENERAL APPEARANCE: cooperative and anxious; not disheveled, not lethargic, not ill appearing, not frail appearing, not Limp noted and does not appear older than stated age ORIENTATION/CONSCIOUSNESS: not lethargic Neck/C-Spine: COMMON NORMALS: full ROM, no lymphadenopathy, supple, no meningeal signs, no JVD, Thyroid normal and No carotid bruits THYROID: Thyroid normal Chest: COMMONS NORMALS: normal inspection of the chest, normal palpation of entire chest wall, normal inspection of the breasts and normal palpation of the breasts Breast/axilla inspection: Yes normal inspection of the breasts BREAST/AXILLA PALPATION: Yes normal palpation of the breasts Resp: AUSCULTATION: normal I/E ratio, no crackles, no rales, no rhonchi, wheezes, breath sounds present, diminished lung sounds, no bronchial breath sounds and no bronchovesicular breath sounds Cardio: COMMON NORMALS: no JVD Extremity: COMMON NORMALS: normal to inspection, full ROM, capillary refill normal, no joint enlargement, no clubbing, cyanosis or edema, no calf tenderness and no pedal edema Neuro: COMMON NORMALS: patient oriented x3 SENSORIUM/ORIENTATION: Yes alert and No lethargic MENINGEAL SIGNS: Yes no meningeal signs Course Reevaluation(s): Reevaluation #1: Per assessment patient appears stable without any acute distress. She is less anxious. Given DuoNeb. Vital Signs: Vital signs: Vital Signs Temperature 98.2 F 03/30/23 14:14 Pulse Rate 98 03/30/23 16:40 Respiratory Rate 18 03/30/23 16:40 Blood Pressure 126/67 03/30/23 14:14 Pulse Oximetry 98 03/30/23 16:40 Oxygen Delivery Me thod Room Air 03/30/23 16:40 MDM - SOB/Dyspnea Medical Decision Making She was made comfortable emergency room. Patient had x-ray and labs which were within normal limit. Discussed lab finding with the patient. Findings also discussed at length. Was reassured. Upon reassessment patient appeared to be stable without any acute distress. She was given DuoNeb. Patient like to be discharged home. Lab Data 03/30/23 15:44 03/30/23 15:44 Labs/Radiology: Radiology Impressions Chest X-Ray 03/30/23 15:32 IMPRESSION: 1. Pulmonary hyperinflation which may indicate COPD. 2. Mild cardiac enlargement. No acute cardiopulmonary process noted. Laboratory Results WBC 3.6 10^3/uL (4.0-10.0) L 03/30/23 15:44 RBC 2.96 10^6/uL (4.1-5.3) L 03/30/23 15:44 Hgb 8.9 g/dL (11.5-15.3) L 03/30/23 15:44 Hct 30.5 % (37.0-47.0) L 03/30/23 15:44 MCV 103.0 fl (81-99) H 03/30/23 15:44 MCH 30.1 pg (28.0-34.0) 03/30/23 15:44 MCHC 29.2 g/dL (30.0-36.0) L 03/30/23 15:44 RDW 15.1 % (12.1-15.1) 03/30/23 15:44 Plt Count 211 10^3/cmm (130-400) 03/30/23 15:44 MPV 9.7 fL (7.4-10.4) 03/30/23 15:44 Neut % (Auto) 54.6 % 03/30/23 15:44 Lymph % (Auto) 32.6 % 03/30/23 15:44 Mayes % (Auto) 8.6 % 03/30/23 15:44 Eos % (Auto) 2.5 % 03/30/23 15:44 Baso % (Auto) 1.1 % 03/30/23 15:44 Neut # (Auto) 1.96 10^3/uL (1.8-7.7) 03/30/23 15:44 Lymph # (Auto) 1.2 10^3/uL (0.8-4.8) 03/30/23 15:44 Mayes # (Auto) 0.3 10^3/uL (0.2-0.9) 03/30/23 15:44 Eos # (Auto) 0.1 10^3/uL (0.0-0.8) 03/30/23 15:44 Baso # (Auto) 0.0 10^3/uL (0.0-0.1) 03/30/23 15:44 Nucleated RBC % (auto) 0 % 03/30/23 15:44 Nucleated RBCs # 0.0 /100WBC 03/30/23 15:44 Sodium 140 mmol/L (136-145) 03/30/23 15:44 Potassium 4.7 mmol/L (3.5-5.1) 03/30/23 15:44 Chloride 109 mmol/L (98-107) H 03/30/23 15:44 Carbon Dioxide 16 mmol/L (22-29) L 03/30/23 15:44 Anion Gap 19.7 (5-19) H 03/30/23 15:44 BUN 29 mg/dL (8-23) H 03/30/23 15:44 Creatinine 1.3 mg/dL (0.5-0.9) H 03/30/23 15:44 GFR Calculation Not Reportable 03/30/23 15:44 Glucose 91 mg/dL (65-115) 03/30/23 15:44 Calculated Osmolality 295 mOsm/kg (285-295) 03/30/23 15:44 Calcium 9.5 mg/dL (8.5-10.5) 03/30/23 15:44 Total Bilirubin 0.3 mg/dL (0.15-1.2) 03/30/23 15:44 AST 11 U/L (0-32) 03/30/23 15:44 ALT < 5 U/L (0-33) 03/30/23 15:44 Alkaline Phosphatase 110 U/L (35-105) H 03/30/23 15:44 Total Protein 6.3 g/dL (6.6-8.7) L 03/30/23 15:44 Albumin 4.0 g/dL (3.5-5.2) 03/30/23 15:44 Globulin 2.3 g/dL (1.3-4.6) 03/30/23 15:44 Discharge Plan Discharge Patient Disposition: Home Clinical Impression: Acute exacerbation of chronic obstructive airways disease, Anxiety Condition: Stable Prescriptions: No Action nitroglycerin 0.4 mg tablet, sublingual 0.4 mg sublingual Q5M PRN (Reason: chest pain) Qty: 25 3RF Rx Instructions: do not exceed 3 doses per episode fluticasone propionate [Flonase Allergy Relief] 50 mcg/actuation spray,suspension 1 spray intranasal DAILY@ Rx Instructions: administer into each nostril multivitamin Tablet 1 tab PO DAILY@ methenamine hippurate 1 gram tablet 1 g PO BID@ Rx Instructions: Take 1000 mg of Vitamin C with each dose of Methenamine potassium chloride [Klor-Con 10] 10 mEq Tablet Extended Release 10 meq PO DAILY@ ascorbic acid (vitamin C) [Vitamin C] 1,000 mg Tablet 1,000 mg PO BID@ furosemide [Lasix] 20 mg Tablet 20 mg PO DAILY PRN (Reason: Edema) isosorbide dinitrate 10 mg tablet 10 mg PO BID@ Rx Instructions: allow nitrate-free interval of 12-14 hrs per 24-hr period atorvastatin 40 mg tablet 40 mg PO BEDTIME@ clopidogrel 75 mg tablet 75 mg PO DAILY pantoprazole 40 mg tablet,delayed release (DR/EC) 40 mg PO DAILY@ aspirin 81 mg Tablet,Delayed Release (Dr/Ec) 81 mg PO DAILY@ Qty: 30 0RF metoprolol tartrate 50 mg tablet 50 mg PO BID@ Qty: 60 0RF Discharge Orders: Discharge ED (Routine); Ordered 03/30/23 Ordered By: Yolie Feldman Referrals: Catalino Sanders MD [Primary Care Provider] - Patient Instructions: Opioid Safety, Pain Management Coding Level of Care Code ED Wire Bound Box Machine Helper for Isi Calhoun
== END 2023-03-30 17:04 | disposition home or self-care (01) ==
PROVIDERS: Emergency Provider Family Medicine; PCP Family Medicine
DX: J44.1 Chronic obstructive pulmonary disease with (acute) exacerbation (principal); F41.9 Anxiety disorder, unspecified; Z79.82 Long term (current) use of aspirin; Z79.02 Long term (current) use of antithrombotics/antiplatelets; F17.210 Nicotine dependence, cigarettes, uncomplicated; I11.0 Hypertensive heart disease with heart failure; I50.9 Heart failure, unspecified; I25.10 Atherosclerotic heart disease of native coronary artery without angina pectoris; E78.5 Hyperlipidemia, unspecified; I25.2 Old myocardial infarction
CPT/HCPCS: 36415; 71045; 80053; 85025; 94640; 99284

== ENCOUNTER 2023-04-14 15:46 | Emergency (ER) | payer MEDICARE, MEDICAID, SELFPAY ==
[2023-04-14 15:53] VITALS: BP 139/60; PULSE 95; RESP 18; TEMP 36.5; O2SAT 100
[2023-04-14 15:56] VITALS: BP 132/57; PULSE 92; RESP 18; O2SAT 100
--- NOTE | 2023-04-14 16:01 | ED_ITS ---
HPI - Extremity Problem General: Chief complaint: Extremity Problem,Nontraumatic Stated complaint: possiable DVT sent by Time Seen by Provider: 04/14/23 16:01 History of Present Illness: Ms. Gerardo is a 77-year-old lady with complex past medical history including remote history of right femoral-popliteal bypass presented the emergency department for atraumatic foot and leg pain. Notes onset of symptoms without known specific provoking event about 3 days ago. Since that time has had increased swelling and paresthesias mostly of the forefoot. She also has intermittent numbness of the right lower extremity mostly below the knee. At times mild associated pain. Denies shortness of breath or chest pain. Reports compliance with medications. No other specific changes in health, exacerbating, or alleviating factors identified. Onset (ago): day(s) Exacerbating factors: walking, exertion and palpation Associated symptoms: Reports other Review of Systems General: Reports: 10 or more systems reviewed and unremarkable except in HPI and below PFSH ED PFSH: Medical History Acute anemia Acute CHF (congestive heart failure) Acute exacerbation of chronic obstructive pulmonary disease Acute systolic CHF (congestive heart failure) Bacteriuria CAD (coronary artery disease) Cardiogenic shock Cardiomyopathy COPD (chronic obstructive pulmonary disease) Cystitis Dehydration Dyslipidemia Elevated troponin Elevated troponin Elevated troponin I level Emphysema lung Essential hypertension Extrinsic ureteral obstruction Fall GI bleed Heart failure Heart failure, systolic, with acute decompensation Hip pain Hypoxia Lactic acidosis NSTEMI (non-ST elevated myocardial infarction) Peripheral arterial disease Pyuria Respiratory failure with hypoxia and hypercapnia Retained ureteral stent Systolic CHF Tobacco abuse Upper gastrointestinal hemorrhage Urinary incontinence UTI (urinary tract infection) Surgical History H/O arthroscopic knee surgery bilateral H/O oral surgery H/O shoulder surgery H/O total hip arthroplasty right H/O: H/O: hysterectomy History of colon surgery Family History Mother , at age 79 Hypertension Peripheral artery disease Diabetes Father , at age 47 Cancer pancreatic and lung Social History Smoking and tobacco status: current some day smoker (quitting) cigarettes Packs smoked per day: 0.5 Years cigarettes smoked: 60 [ Other cigarette details: Hx of 1 PPD x 50 Years] Second hand smoke exposure: Yes Smoking risk assessment/counseling performed?: Yes Alcohol intake: never Substance/Drug Use: never Lives independently: Yes Housing: Apartment Marital status: Legally Current occupational status: retired and disabled Do you think of yourself as: Straight/Heterosexual Current gender identity: Female Physical Exam Const: COMMON NORMALS: alert GENERAL APPEARANCE: cooperative and well developed HENMT: COMMON NORMALS: normocephalic and atraumatic HEAD & SCALP: normocephalic and atraumatic Eye: COMMON NORMALS: conjunctivae normal CONJUNCTIVA: Yes conjunctivae normal SCLERA: sclerae normal Neck/C-Spine: COMMON NORMALS: supple GENERAL: Yes trachea midline Resp: COMMON NORMALS: normal respiratory effort EFFORT & INSPECTION: Yes able to speak in complete sentences Cardio: COMMON NORMALS: regular rate and regular rhythm RATE: regular rate RHYTHM: regular rhythm GI: COMMON NORMALS: Soft to palpation PALPATION: Yes Soft to palpation and No Tenderness to palpation present (GI) Extremity: GENERAL: Yes normal exam except as noted and No edema Neuro: COMMON NORMALS: moves all extremities SENSORIUM/ORIENTATION: Yes alert and No Orientation impaired Psych: COMMON NORMALS: mental status grossly normal and Normal thought process present THOUGHT PROCESS: Normal thought process present Course Vital Signs: Vital signs: Vital Signs Temperature 97.7 F 04/14/23 15:53 Pulse Rate 96 04/14/23 19:11 Respiratory Rate 18 04/14/23 19:11 Blood Pressure 146/74 04/14/23 19:11 Pulse Oximetry 95 04/14/23 19:11 Oxygen Delivery Me thod Room Air 04/14/23 15:53 MDM - Extremity (Nontraumatic) Medical Decision Making 77-year-old lady presenting with atraumatic extremity concern. Exam as above. Lower extremity swelling and mild discoloration. Subjective sensory changes. No evidence of compartment syndrome or necrosis Labs with no leukocytosis, baseline hemoglobin. Metabolic panel with similar findings to prior. Arterial study ultrasound with patent graft. No DVT. X-ray negative for fracture. Discussed with vascular surgery. No indication for transfer at this time. Plan for outpatient follow-up. The results of ED evaluation were discussed with the patient including prescriptions and/or symptomatic cares (if applicable) including appropriate and responsible use, followup plan, and return precautions. The patient verbalized understanding and felt safe for discharge. Medical Records I reviewed the patient's medical records. Lab Data I reviewed the patient's lab results. 04/14/23 16:48 04/14/23 16:48 Radiology Impressions Duplex Scan Lower Extremity Artery 04/14/23 16:16 IMPRESSION: No stenosis or occlusion. Patent graft. Venous Duplex 04/14/23 16:16 IMPRESSION: No evidence of deep vein thrombosis. Foot X-Ray 04/14/23 17:55 IMPRESSION: No acute findings. Laboratory Results WBC 5.0 10^3/uL (4.0-10.0) 04/14/23 16:48 RBC 3.23 10^6/uL (4.1-5.3) L 04/14/23 16:48 Hgb 9.7 g/dL (11.5-15.3) L 04/14/23 16:48 Hct 33.6 % (37.0-47.0) L 04/14/23 16:48 MCV 104.0 fl (81-99) H 04/14/23 16:48 MCH 30.0 pg (28.0-34.0) 04/14/23 16:48 MCHC 28.9 g/dL (30.0-36.0) L 04/14/23 16:48 RDW 15.0 % (12.1-15.1) 04/14/23 16:48 Plt Count 229 10^3/cmm (130-400) 04/14/23 16:48 MPV 9.8 fL (7.4-10.4) 04/14/23 16:48 Neut % (Auto) 54.4 % 04/14/23 16:48 Lymph % (Auto) 32.9 % 04/14/23 16:48 [place]wood % (Auto) 9.1 % 04/14/23 16:48 Eos % (Auto) 2.2 % 04/14/23 16:48 Baso % (Auto) 1.0 % 04/14/23 16:48 Neut # (Auto) 2.69 10^3/uL (1.8-7.7) 04/14/23 16:48 Lymph # (Auto) 1.6 10^3/uL (0.8-4.8) 04/14/23 16:48 [place]wood # (Auto) 0.5 10^3/uL (0.2-0.9) 04/14/23 16:48 Eos # (Auto) 0.1 10^3/uL (0.0-0.8) 04/14/23 16:48 Baso # (Auto) 0.1 10^3/uL (0.0-0.1) 04/14/23 16:48 Nucleated RBC % (auto) 0 % 04/14/23 16:48 Nucleated RBCs # 0.0 /100WBC 04/14/23 16:48 PT 13.00 SECONDS (12.1-14.9) 04/14/23 16:48 INR 0.95 (0.8-1.2) 04/14/23 16:48 APTT 21.5 SECONDS (23.9-36.7) L 04/14/23 16:48 Sodium 138 mmol/L (136-145) 04/14/23 16:48 Potassium 4.2 mmol/L (3.5-5.1) 04/14/23 16:48 Chloride 106 mmol/L (98-107) 04/14/23 16:48 Carbon Dioxide 18 mmol/L (22-29) L 04/14/23 16:48 Anion Gap 18.2 (5-19) 04/14/23 16:48 BUN 20 mg/dL (8-23) 04/14/23 16:48 Creatinine 1.1 mg/dL (0.5-0.9) H 04/14/23 16:48 GFR Calculation Not Reportable 04/14/23 16:48 Glucose 86 mg/dL (65-115) 04/14/23 16:48 Calculated Osmolality 288 mOsm/kg (285-295) 04/14/23 16:48 Lactic Acid 1.5 mmol/L (0.5-2.2) 04/14/23 16:48 Calcium 9.4 mg/dL (8.5-10.5) 04/14/23 16:48 Discharge Plan Discharge Patient Disposition: Home Clinical Impression: Right leg swelling, Peripheral arterial disease Condition: Stable Prescriptions: No Action nitroglycerin 0.4 mg tablet, sublingual 0.4 mg sublingual Q5M PRN (Reason: chest pain) Qty: 25 3RF Rx Instructions: do not exceed 3 doses per episode fluticasone propionate [Flonase Allergy Relief] 50 mcg/actuation spray,suspe nsion 1 spray intranasal DAILY@07 Rx Instructions: administer into each nostril multivitamin Tablet 1 tab PO DAILY@ methenamine hippurate 1 gram tablet 1 g PO BID@ Rx Instructions: Take 1000 mg of Vitamin C with each dose of Methenamine potassium chloride [Klor-Con 10] 10 mEq Tablet Extended Release 10 meq PO DAILY@ ascorbic acid (vitamin C) [Vitamin C] 1,000 mg Tablet 1,000 mg PO BID@ atorvastatin 40 mg tablet 40 mg PO BEDTIME@ clopidogrel 75 mg tablet 75 mg PO DAILY pantoprazole 40 mg tablet,delayed release (DR/EC) 40 mg PO DAILY@ acetaminophen 650 mg Tablet Extended Release 1,300 mg PO Q12H PRN (Reason: Pain) lisinopril 5 mg tablet 5 mg PO DAILY Hold Instructions: Resume on 04/30/23. Tylenol 325 mg Capsule 650 mg PO QID PRN (Reason: Pain) isosorbide dinitrate 5 mg tablet 5 mg PO BID Qty: 60 0RF Rx Instructions: allow nitrate-free interval of 12-14 hrs per 24-hr period Lasix 20 mg Tablet 20 mg PO DAILY Qty: 20 0RF aspirin 81 mg Tablet,Delayed Release (Dr/Ec) 81 mg PO DAILY@ Qty: 30 0RF metoprolol tartrate 50 mg tablet 50 mg PO BID@ Qty: 60 0RF Discharge Orders: Discharge ED (Routine); Ordered 04/14/23 Ordered By: Arsalan Garnett Referrals: Catalino Sanders MD [Primary Care Provider] - Discharge Diet: Usual diet Discharge Activity: Resume usual activity Patient Instructions: Peripheral Artery Disease (ED), Leg Edema (ED) Activity Restrictions/Additional Instructions: Thank you for visiting the emergency department. You were seen and evaluated for leg concerns. The exact cause of your symptoms is unclear however is appropriate for outpatient follow-up. Discussed with vascular surgery at [facility] . I will message case management to ensure proper referral however please contact them regarding foll owup as well. Please continue your medications including aspirin and Plavix as well as the other ones. Follow-up with your primary care provider. Return for uncontrolled pain, any new sensory or motor changes, or anything else that you are concerned about and feel needs emergency department evaluation. Coding Level of Care Code ED Financial Services Specialist for Isi Calhoun
--- NOTE | 2023-04-14 16:16 | USR_ITS ---
PROCEDURE INFORMATION: Exam: US Duplex Right Lower Extremity Veins, Limited Exam date and time: 04/14/2023 5:16 PM Age: 77 years old Clinical indication: Pain; Leg, lower; Right; Prior surgery; Surgery date: 6+ months; Surgery type: Fem pop graft; Additional info: Rle swelling, pain TECHNIQUE: Imaging protocol: Real-time duplex ultrasound of the right extremity with 2-D yañez scale, color Doppler flow and spectral waveform analysis including responses to compression and other maneuvers (when performed) with image documentation. Limited exam was focused on the right lower extremity veins. COMPARISON: US ROR venous duplex LE RT 11/10/2022 10:59 AM FINDINGS: Right deep veins: Unremarkable. The common femoral, femoral, proximal profunda femoral and popliteal veins are patent without thrombus. Normal Doppler waveforms. Normal compressibility and/or augmentation response. Superficial veins: Unremarkable. Saphenofemoral junction is patent without thrombus. Soft tissues: Unremarkable. US/[place] [id number] IMPRESSION: No evidence of deep vein thrombosis.
--- NOTE | 2023-04-14 16:16 | USR_ITS ---
PROCEDURE INFORMATION: Exam: US Duplex Right Lower Extremity Arteries Or Arterial Bypass Grafts Exam date and time: 04/14/2023 4:51 PM Age: 77 years old Clinical indication: Pain; Leg, lower; Right; Prior surgery; Surgery date: 6+ months; Surgery type: Fem pop; Additional info: Rle pain, swelling, HX fem pop 13 years ago TECHNIQUE: Imaging protocol: Right Real-time duplex scan of the arteries or arterial bypass grafts of the right lower extremity with 2-D yañez scale, color Doppler flow and spectral waveform analysis. Images documented and saved. COMPARISON: US ROR venous duplex LE RT 11/10/2022 10:59 AM FINDINGS: Right common femoral artery: No occlusion or significant stenosis. Monophasic waveform. No pseudoaneurysm in the inguinal region. Right superficial femoral artery: No occlusion or significant stenosis. Monophasic waveform. Right popliteal artery: No occlusion or significant stenosis. Monophasic waveform. Right calf/foot arteries: No occlusion or significant stenosis in the visualized arteries. Monophasic waveforms. Dorsalis pedis artery is patent. Soft tissues: No hematoma or collection. Other findings: Patency of the bypass graft and at the anastomosis with monophasic waveforms. US/[place] [id number] IMPRESSION: No stenosis or occlusion. Patent graft.
[2023-04-14 16:54] LABS: Basophils # 0.1 10^3/uL (0.0-0.1); Eosinophils # 0.1 10^3/uL (0.0-0.8); Eosinophils % 2.2 %; Hematocrit 33.6 % (37.0-47.0); Hemoglobin 9.7 g/dL (11.5-15.3); Lymphocytes # 1.6 10^3/uL (0.8-4.8); Lymphocytes % 32.9 %; Mean Corpuscular HGB Conc 28.9 g/dL (30.0-36.0); Mean Platelet Volume 9.8 fL (7.4-10.4); Monocytes # 0.5 10^3/uL (0.2-0.9); Monocytes % 9.1 %; Neutrophils # 2.69 10^3/uL (1.8-7.7); Neutrophils % 54.4 %; Nucleated Red Blood Cells % 0 %; Platelet Count 229 10^3/cmm (130-400); Red Blood Count 3.23 10^6/uL (4.1-5.3)
[2023-04-14 16:56] VITALS: BP 129/68; PULSE 83; RESP 16; O2SAT 97
[2023-04-14 17:09] LABS: INR 0.95 (0.8-1.2); Partial Thromboplastin Time 21.5 SECONDS (23.9-36.7)
[2023-04-14 17:12] LABS: Lactic Sepsis W/Reflex 1.5 mmol/L (0.5-2.2)
[2023-04-14 17:13] LABS: Blood Urea Nitrogen 20 mg/dL (8-23); Calcium 9.4 mg/dL (8.5-10.5); Carbon Dioxide 18 mmol/L (22-29); Chloride 106 mmol/L (98-107); Glucose 86 mg/dL (65-115); Osmolality Calculated 288 mOsm/kg (285-295); Sodium 138 mmol/L (136-145)
[2023-04-14 17:14] LABS: Anion Gap 18.2 (5-19); Potassium 4.2 mmol/L (3.5-5.1)
--- NOTE | 2023-04-14 17:55 | XRR_ITS ---
PROCEDURE INFORMATION: Exam: XR Right Foot Exam date and time: 04/14/2023 6:12 PM Age: 77 years old Clinical indication: Pain; Foot; Right; Additional info: Swelling, pain TECHNIQUE: Imaging protocol: Radiologic exam of the right foot. Views: 3 or more views. COMPARISON: CR XR ankle RT min 3V* [id number] 01/31/2023 9:33 AM FINDINGS: Bones/joints: Osseous structures are intact. Negative for fracture. Joint spaces are preserved. Soft tissues: Normal. XR/XR foot RT min 3V* [id number] IMPRESSION: No acute findings.
[2023-04-14 17:56] VITALS: BP 140/68; PULSE 91; RESP 18; O2SAT 97
[2023-04-14 19:11] VITALS: BP 146/74; PULSE 96; RESP 18; O2SAT 95
--- NOTE | 2023-04-18 10:24 | DCPLANNER ---
Addendum entered by Ryann Melendrez 04/27/23 13:45: vending manager called [facility] to confirm that facility had received patients information. vending manager was told that facility had patients information, it will be reviewed, and clinic will call patient with appointment information. Original Note: vending manager had message to refer patient to vascular surgery at [facility]. vending manager called [facility] at [phone] and faxed patients records to fax number [phone]. Patients information will be reviewed, clinic will call patient with appointment information.
== END 2023-04-14 19:22 | disposition home or self-care (01) ==
PROVIDERS: Emergency Provider Emergency Medicine; PCP Family Medicine
DX: M79.89 Other specified soft tissue disorders (principal); I73.9 Peripheral vascular disease, unspecified; Z79.82 Long term (current) use of aspirin; Z79.02 Long term (current) use of antithrombotics/antiplatelets; F17.210 Nicotine dependence, cigarettes, uncomplicated; I11.0 Hypertensive heart disease with heart failure; I50.9 Heart failure, unspecified; I25.10 Atherosclerotic heart disease of native coronary artery without angina pectoris; J44.9 Chronic obstructive pulmonary disease, unspecified; E78.5 Hyperlipidemia, unspecified; I25.2 Old myocardial infarction
CPT/HCPCS: 73630; 80048; 83605; 85025; 85610; 85730; 93926; 93971; 99285

== ENCOUNTER 2023-04-21 21:41 | Inpatient (IN) | payer MEDICARE, MEDICAID, SELFPAY ==
[2023-04-21] VITALS (9 sets, daily range): BP systolic 111–167; BP diastolic 54–105; PULSE 82–126; RESP 22–33; TEMP 36.1–36.5; O2SAT 88–100; BMI 18.8
--- NOTE | 2023-04-21 21:46 | XRR_ITS ---
PROCEDURE INFORMATION: Exam: XR Chest Exam date and time: 04/21/2023 9:51 PM Age: 77 years old Clinical indication: Shortness of breath; Additional info: SOB TECHNIQUE: Imaging protocol: Radiologic exam of the chest. Views: 1 view. COMPARISON: CR XR chest 1V portable [id number] 03/30/2023 3:40 PM FINDINGS: Lungs: The lungs are hyperinflated, consistent with COPD. Increased interstitial markings, suggesting interstitial pulmonary edema. No consolidative pulmonary infiltrates are noted. Pleural spaces: Trace right pleural effusion. No pneumothorax. Heart/Mediastinum: Mild cardiomegaly is noted. Bones/joints: Degenerative spine changes are noted. XR/XR chest 1V portable [id number] IMPRESSION: 1. Mild cardiomegaly is noted. 2. The lungs are hyperinflated, consistent with COPD. 3. Increased interstitial markings, suggesting interstitial pulmonary edema. 4. Trace right pleural effusion.
[2023-04-21 21:57] LABS: ABG PCO2 45.3 mmHg (35-45); Arterial Blood Gas Hematocrit 32.1 % (37-47); Base Excess ABG -10.9 mmol/L (-2.0-2.0); Blood Gas Sample Site Brachial, right; Blood Gas Sample Type Arterial; Carboxyhemoglobin 2.2 %THgb (0.4-20.1); HGB O2 Sat 96.6 % (95-100); Methemoglobin 0.6 % (0.4-1.5); Oxygen Device BIPAP; Total Hemoglobin 10.5 g/dL (12-16)
--- NOTE | 2023-04-21 22:14 | ED_ITS ---
HPI - SOB/Dyspnea General: Chief Complaint: Shortness of Breath/Dyspnea Stated Complaint: RESP. DISTRESS Time Seen by Provider: 04/21/23 21:42 Source: patient and EMS Mode of arrival: EMS Limitations: no limitations History of Present Illness: HPI Narrative: 77-year-old female has a history of hypertension along with congestive heart failure states she was just post to be started on oxygen today. States that roughly an hour ago she started having severe shortness of breath. Per EMS she was 82% she is extremely hypertensive here with rales. She denies any fevers or cough or chest pain she is in severe distress and only able speak in 1-2 word sentences Associated symptoms: Deny abdominal pain, chest pain, fever(s), nausea or vomi ting Review of Systems Const: Denies: fever(s), chills, body aches or change in appetite ENMT: Denies: throat pain or dental pain Card: Denies: chest pain Resp: Reports: dyspnea GI: Denies: abdominal pain, nausea, vomiting or diarrhea : Denies: dysuria Musc: Denies: neck pain or back pain Skin/Breast: Denies: rash Neuro: Denies: headache(s) PFSH ED PFSH: Medical History Acute anemia Acute CHF (congestive heart failure) Acute exacerbation of chronic obstructive pulmonary disease Acute systolic CHF (congestive heart failure) Bacteriuria CAD (coronary artery disease) Cardiogenic shock Cardiomyopathy COPD (chronic obstructive pulmonary disease) Cystitis Dehydration Dyslipidemia Elevated troponin Elevated troponin Elevated troponin I level Emphysema lung Essential hypertension Extrinsic ureteral obstruction Fall GI bleed Heart failure Heart failure, systolic, with acute decompensation Hip pain Hypoxia Lactic acidosis NSTEMI (non-ST elevated myocardial infarction) Peripheral arterial disease Pyuria Respiratory failure with hypoxia and hypercapnia Retained ureteral stent Systolic CHF Tobacco abuse Upper gastrointestinal hemorrhage Urinary incontinence UTI (urinary tract infection) Surgical History H/O arthroscopic knee surgery bilateral H/O oral surgery H/O shoulder surgery H/O total hip arthroplasty right H/O: H/O: hysterectomy History of colon surgery Family History Mother , at age 79 Hypertension Peripheral artery disease Diabetes Father , at age 47 Cancer pancreatic and lung Social History Smoking and tobacco status: current some day smoker (quitting) cigarettes Packs smoked per day: 0.5 Years cigarettes smoked: 60 [ Other cigarette details: Hx of 1 PPD x 50 Years] Second hand smoke exposure: Yes Smoking risk assessment/counseling performed?: Yes Alcohol intake: never Substance/Drug Use: never Lives independently: Yes Housing: Apartment Marital status: Legally Current occupational status: retired and disabled Do you think of yourself as: Straight/Heterosexual Current gender identity: Female Physical Exam Const: COMMON NORMALS: patient oriented x3 GENERAL APPEARANCE: in distress HENMT: COMMON NORMALS: normocephalic and atraumatic HEAD & SCALP: normocephalic and atraumatic Eye: COMMON NORMALS: Equal, round and reactive pupils present and EOMs intact bilaterally PUPIL: Yes Equal, round and reactive pupils present Neck/C-Spine: COMMON NORMALS: full ROM and supple Chest: COMMONS NORMALS: normal inspection of the chest and normal palpation of entire chest wall Resp: COMMON NORMALS: No use of accessory muscles EFFORT & INSPECTION: Yes tachypneic, Yes respiratory distress and Yes labored AUSCULTATION: rales Cardio: COMMON NORMALS: regular rhythm and No murmurs present (Cardio) RATE: tachycardic RHYTHM: regular rhythm GI: COMMON NORMALS: Normal to inspection, nondistended, normoactive bowel sounds present, Soft to palpation, non-tender and no masses PALPATION: Yes Soft to palpation Extremity: COMMON NORMALS: normal to inspection and full ROM Neuro: COMMON NORMALS: patient oriented x3, moves all extremities and no focal motor deficits Psych: COMMON NORMALS: mental status grossly normal, Normal thought process present and cooperative THOUGHT PROCESS: Normal thought process present Skin: COMMON NORMALS: no rashes or lesions noted and no wounds GENERAL SKIN EXAM: no rashes or lesions noted Course Vital Signs: Vital signs: Vital Signs Temperature 97 F L 04/21/23 21:42 Pulse Rate 82 04/21/23 22:32 Respiratory Rate 22 H 04/21/23 22:32 Blood Pressure 167/105 04/21/23 21:42 Pulse Oximetry 92 04/21/23 22:32 Oxygen Delivery Me thod BiPAP 04/21/23 22:32 Fraction of Inspir ed Oxygen 50 04/21/23 22:32 MDM - SOB/Dyspnea Medical Decision Making Patient presents here with pulm edema and likely flash pulmonary edema from hypertensive emergency she is improving here after blood pressure is improved along with being on BiPAP I spoke to the hospitalist will admit to the ICU. Medical Records I reviewed the patient's medical records. Lab Data I reviewed the patient's lab results. 04/21/23 22:10 04/21/23 22:10 Labs/Radiology: Radiology Impressions Chest X-Ray 04/21/23 21:46 IMPRESSION: 1. Mild cardiomegaly is noted. 2. The lungs are hyperinflated, consistent with COPD. 3. Increased interstitial markings, suggesting interstitial pulmonary edema. 4. Trace right pleural effusion. Laboratory Results WBC 9.1 10^3/uL (4.0-10.0) 04/21/23 22:10 RBC 3.51 10^6/uL (4.1-5.3) L 04/21/23 22:10 Hgb 10.5 g/dL (11.5-15.3) L 04/21/23 22:10 Hct 35.0 % (37.0-47.0) L 04/21/23 22:10 MCV 99.7 fl (81-99) H 04/21/23 22:10 MCH 29.9 pg (28.0-34.0) 04/21/23 22:10 MCHC 30.0 g/dL (30.0-36.0) 04/21/23 22:10 RDW 15.2 % (12.1-15.1) H 04/21/23 22:10 Plt Count 313 10^3/cmm (130-400) 04/21/23 22:10 MPV 10.0 fL (7.4-10.4) 04/21/23 22:10 Neut % (Auto) 57.6 % 04/21/23 22:10 Lymph % (Auto) 35.5 % 04/21/23 22:10 Miner % (Auto) 4.6 % 04/21/23 22:10 Eos % (Auto) 1.1 % 04/21/23 22:10 Baso % (Auto) 0.8 % 04/21/23 22:10 Neut # (Auto) 5.26 10^3/uL (1.8-7.7) 04/21/23 22:10 Lymph # (Auto) 3.2 10^3/uL (0.8-4.8) 04/21/23 22:10 Miner # (Auto) 0.4 10^3/uL (0.2-0.9) 04/21/23 22:10 Eos # (Auto) 0.1 10^3/uL (0.0-0.8) 04/21/23 22:10 Baso # (Auto) 0.1 10^3/uL (0.0-0.1) 04/21/23 22:10 Nucleated RBC % (auto) 0 % 04/21/23 22:10 Nucleated RBCs # 0.0 /100WBC 04/21/23 22:10 PT 13.30 SECONDS (12.1-14.9) 04/21/23 22:10 INR 0.98 (0.8-1.2) 04/21/23 22:10 Specimen Type Arterial 04/21/23 21:50 Sample Site Brachial, right 04/21/23 21:50 ABG pH 7.18 (7.35-7.45) L* 04/21/23 21:50 ABG pCO2 45.3 mmHg (35-45) H 04/21/23 21:50 ABG pO2 138.0 mmHg (80.0-100.0) H 04/21/23 21:50 ABG HCO3 17.0 mmol/L (22-26) L 04/21/23 21:50 ABG Base Excess -10.9 mmol/L (-2.0-2.0) L 04/21/23 21:50 Roby Test N/a 04/21/23 21:50 Hematocrit 32.1 % (37-47) L 04/21/23 21:50 Hgb O2 Saturation 96.6 % (95-100) 04/21/23 21:50 Carboxyhemoglobin 2.2 %THgb (0.4-20.1) 04/21/23 21:50 Methemoglobin 0.6 % (0.4-1.5) 04/21/23 21:50 Total Hemoglobin 10.5 g/dL (12-16) L 04/21/23 21:50 O2 Delivery Device Bipap 04/21/23 21:50 FiO2 60.0 % 04/21/23 21:50 Deckhand [employer] ID [email or web address] 04/21/23 21:50 Sodium 143 mmol/L (136-145) 04/21/23 22:10 Potassium 4.5 mmol/L (3.5-5.1) 04/21/23 22:10 Chloride 110 mmol/L (98-107) H 04/21/23 22:10 Carbon Dioxide 19 mmol/L (22-29) L 04/21/23 22:10 Anion Gap 18.5 (5-19) 04/21/23 22:10 BUN 17 mg/dL (8-23) 04/21/23 22:10 Creatinine 0.9 mg/dL (0.5-0.9) 04/21/23 22:10 GFR Calculation Not Reportable 04/21/23 22:10 Glucose 223 mg/dL (65-115) H 04/21/23 22:10 Calculated Osmolality 304 mOsm/kg (285-295) H 04/21/23 22:10 Calcium 9.4 mg/dL (8.5-10.5) 04/21/23 22:10 Total Bilirubin 0.2 mg/dL (0.15-1.2) 04/21/23 22:10 AST 26 U/L (0-32) 04/21/23 22:10 ALT 14 U/L (0-33) 04/21/23 22:10 Alkaline Phosphatase 148 U/L (35-105) H 04/21/23 22:10 NT-Pro-B Natriuret Pep 35203 pg/mL (0-450) H 04/21/23 22:10 Total Protein 6.8 g/dL (6.6-8.7) 04/21/23 22:10 Albumin 4.3 g/dL (3.5-5.2) 04/21/23 22:10 Globulin 2.5 g/dL (1.3-4.6) 04/21/23 22:10 Critical Care Time Critical Care Time: Critical Care Time: Yes Total Critical Care Time: 40 Attestation: The high probability of a clinically significant, sudden or life threatening deterioration of the patient's resp system(s) required my full and direct attention, intervention and personal management. The critical care time is as shown. This time is in addition to time spent performing any reported procedures but includes the following: [x] Data and vital sign review and interpretation [x] Patient assessment, examination and intervention [x] Documentation [x] Medication orders and management Discharge Plan Discharge Admit Provider: Wendy Loya Condition: Stable Prescriptions: No Action nitroglycerin 0.4 mg tablet, sublingual 0.4 mg sublingual Q5M PRN (Reason: chest pain) Qty: 25 3RF Rx Instructions: do not exceed 3 doses per episode fluticasone propionate [Flonase Allergy Relief] 50 mcg/actuation spray,suspension 1 spray intranasal DAILY@ Rx Instructions: administer into each nostril multivitamin Tablet 1 tab PO DAILY@ methenamine hippurate 1 gram tablet 1 g PO BID@ Rx Instructions: Take 1000 mg of Vitamin C with each dose of Methenamine potassium chloride [Klor-Con 10] 10 mEq Tablet Extended Release 10 meq PO DAILY@ ascorbic acid (vitamin C) [Vitamin C] 1,000 mg Tablet 1,000 mg PO BID@ furosemide [Lasix] 20 mg Tablet 20 mg PO DAILY PRN (Reason: Edema) isosorbide dinitrate 10 mg tablet 10 mg PO BID@ Rx Instructions: allow nitrate-free interval of 12-14 hrs per 24-hr period atorvastatin 40 mg tablet 40 mg PO BEDTIME@ clopidogrel 75 mg tablet 75 mg PO DAILY pantoprazole 40 mg tablet,delayed release (DR/EC) 40 mg PO DAILY@ aspirin 81 mg Tablet,Delayed Release (Dr/Ec) 81 mg PO DAILY@ Qty: 30 0RF metoprolol tartrate 50 mg tablet 50 mg PO BID@ Qty: 60 0RF Coding Level of Care Code ED Office Workforce Planner for Isi Calhoun
[2023-04-21] MEDS: nitroglycerin 1 gm/inch oint Pkt 1 INCH TOPICAL (22:18)
[2023-04-21] MEDS: labetalol 5 mg/mL SDV 20mL 20 MG IVP (22:20)
[2023-04-21 22:28] LABS: Basophils # 0.1 10^3/uL (0.0-0.1); Basophils % 0.8 %; Eosinophils # 0.1 10^3/uL (0.0-0.8); Eosinophils % 1.1 %; Hemoglobin 10.5 g/dL (11.5-15.3); Lymphocytes # 3.2 10^3/uL (0.8-4.8); Lymphocytes % 35.5 %; Mean Corpuscular Hemoglobin 29.9 pg (28.0-34.0); Mean Corpuscular Volume 99.7 fl (81-99); Monocytes # 0.4 10^3/uL (0.2-0.9); Monocytes % 4.6 %; Neutrophils # 5.26 10^3/uL (1.8-7.7); Neutrophils % 57.6 %; Nucleated Red Blood Cells % 0 %; Platelet Count 313 10^3/cmm (130-400); Red Blood Count 3.51 10^6/uL (4.1-5.3); Red Cell Distribution Width 15.2 % (12.1-15.1); White Blood Count 9.1 10^3/uL (4.0-10.0)
[2023-04-21] MEDS: albuterol 2.5 mg/3 mL Neb INHALATION (22:30)
--- NOTE | 2023-04-21 22:42 | ECG_ITS ---
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 Measurements Intervals [place] Rate: 121 P: 73 GA: 151 QRS: 78 QRSD: 100 T: -89 QT: 310 QTc: 441 Interpretive Statements SINUS TACHYCARDIA LEFT VENTRICULAR HYPERTROPHY AND ST-T CHANGE [VOLTAGE CRITERIA PLUS ST/T ABNORMALITY] Compared to ECG 02/23/2023 08:39:20 No significant changes Electronically Signed On 04-22-2023 8:46:07 CDT by Kishan Lozano M.D. [id number]
[2023-04-21 22:45] LABS: INR 0.98 (0.8-1.2)
--- NOTE | 2023-04-21 22:47 | P.HP_ITS ---
Providers/Chief Complaint Primary Care Provider: Catalino Sanders MD Chief Complaint: RESP. DISTRESS History of Present Illness Denia Gerardo is a 77 year old female previous history of non-STEMI which was managed medically angiogram was declined because of kidney disease, he also experienced melanotic stool ,GI bleed but anesthesia declined to do EGD because of her rising troponin, patient was discharged to SNF in February presented today with chief complaint of worsening of shortness of breath from home Patient stating that she was in her usual state of health when today all of a sudden she started becoming short of breath, there were people at home to put her on oxygen however it did not make any difference, she was hypotensive short of breath without significant chest pain. She has not noticed any fever, productive cough . In the ER she has been diagnosed with hypertensive emergency and flash pulm edema required BiPAP and use of labetalol oral nitroglycerin. On admission her blood pressure was 210/10 50 mmHg after labetalol blood pressure 167/105 mmHg She will be admitted to ICU, acute hypercapnic respiratory failure on ABG, At the time of my evaluation blood pressure is 109/75 mmhg patient endorsing feeling much better on BiPAP he is on FiO2 40% BiPAP settings 16/8. I have removed her Nitropaste As per the family she recently had venous Doppler which did not show DVT however her right leg is swollen more than left, she also has history of stent in her peripheral vessels right leg Review of Systems Const: Reports: chills and body aches; Denies: fever(s) Eyes: Denies: change in vision ENMT: Denies: throat pain Card: Reports: swelling of feet/ankles; Denies: chest pain Resp: Reports: dyspnea and wheezing GI: Denies: abdominal pain : Denies: flank pain Musc: Reports: extremity swelling; Denies: neck pain Skin/Breast: Denies: rash Neuro: Reports: headache(s) Psych: Reports: anxiety Medications/Allergies Home Medications Medication Instructions Recorded Confirmed Last Taken Type fluticasone propionate 50 1 spray intranasal DAILY@07/26/22 03/30/23 03/02/23 History mcg/actuation nasal spray,suspension (Flonase Allergy Relief) nitroglycerin 0.4 mg sublingual 0.4 mg sublingual Q5M PRN chest 10/20/22 03/30/23 Unknown Rx tablet pain #25 tabs methenamine hippurate 1 gram tablet 1 g PO BID@07,01/23/23 03/30/23 03/30/23 History multivitamin 1 tab PO DAILY@01/23/23 03/30/23 03/30/23 History aspirin 81 mg tablet,delayed 81 mg PO DAILY@07 #30 tabs 02/01/23 03/30/23 03/30/23 Rx release metoprolol tartrate 50 mg tablet 50 mg PO BID@, #60 tabs 02/01/23 03/30/23 03/30/23 Rx potassium chloride 10 mEq 10 meq PO DAILY@02/03/23 03/30/23 03/30/23 History tablet,extended release (Klor-Con) ascorbic acid (vitamin C) 1,000 mg 1,000 mg PO BID@07,03/02/23 03/30/23 03/30/23 History tablet (Vitamin C) atorvastatin 40 mg tablet 40 mg PO BEDTIME@03/02/23 03/30/23 03/29/23 History clopidogrel 75 mg tablet 75 mg PO DAILY 03/02/23 03/30/23 03/30/23 History furosemide 20 mg tablet (Lasix) 20 mg PO DAILY PRN Edema 03/02/23 03/30/23 Unknown History isosorbide dinitrate 10 mg tablet 10 mg PO BID@07,03/02/23 03/30/23 03/30/23 History pantoprazole 40 mg tablet,delayed 40 mg PO DAILY@03/02/23 03/30/23 03/30/23 History release Allergies Allergy/AdvReac Type Severity Reaction Status Date / Time meperidine [From Demerol] Allergy Unknown Unknown Verified 03/02/23 13:30 morphine Allergy Unknown Unknown Verified 03/02/23 13:30 PFSH Acute PFSH: Medical History Acute anemia Acute CHF (congestive heart failure) Acute exacerbation of chronic obstructive pulmonary disease Acute systolic CHF (congestive heart failure) Bacteriuria CAD (coronary artery disease) Cardiogenic shock Cardiomyopathy COPD (chronic obstructive pulmonary disease) Cystitis Dehydration Dyslipidemia Elevated troponin Elevated troponin Elevated troponin I level Emphysema lung Essential hypertension Extrinsic ureteral obstruction Fall GI bleed Heart failure Heart failure, systolic, with acute decompensation Hip pain Hypoxia Lactic acidosis NSTEMI (non-ST elevated myocardial infarction) Peripheral arterial disease Pyuria Respiratory failure with hypoxia and hypercapnia Retained ureteral stent Systolic CHF Tobacco abuse Upper gastrointestinal hemorrhage Urinary incontinence UTI (urinary tract infection) Surgical History H/O arthroscopic knee surgery bilateral H/O oral surgery H/O shoulder surgery H/O total hip arthroplasty right H/O: H/O: hysterectomy History of colon surgery Family History Mother , at age 79 Hypertension Peripheral artery disease Diabetes Father , at age 47 Cancer pancreatic and lung Social History Smoking and tobacco status: current some day smoker (quitting) cigarettes Packs smoked per day: 0.5 Years cigarettes smoked: 60 [ Other cigarette details: Hx of 1 PPD x 50 Years] Second hand smoke exposure: Yes Smoking risk assessment/counseling performed?: Yes Alcohol intake: never Substance/Drug Use: never Lives independently: Yes Housing: Apartment Marital status: Legally Current occupational status: retired and disabled Do you think of yourself as: Straight/Heterosexual Current gender identity: Female Vitals/I&O/Wt Last Vital Signs Temp 97 F L 04/21/23 21:42 Pulse 82 04/21/23 22:32 Resp 22 H 04/21/23 22:32 BP 167/105 04/21/23 21:42 Pulse Ox 92 04/21/23 22:32 O2 Del Method BiPAP 04/21/23 22:32 FiO2 50 04/21/23 22:32 Weight last 48 hrs Weight 45.359 kg Physical Exam Narrative: female Currently on BiPAP FiO2 40% Settings 26/02 Currently feeling better Blood pressure 109/75 mmHg Nitropaste removed by myself Abdomen soft Right leg swollen as compared to left GCS 15 Nonfocal neuro exam Able to communicate Coherent Pleasant and cooperative Family at the Data 04/21/23 22:10 04/21/23 22:10 Micro: Microbiology 04/21/23 22:21 Blood Culture - Preliminary Blood SPECIMEN COLLECTED 04/21/23 22:10 Blood Culture - Preliminary Blood SPECIMEN COLLECTED A&P Assessment and plan (1) Right leg swelling: (2) Peripheral arterial disease: (3) Pulmonary edema: (4) Hypertensive emergency: (5) Retained ureteral stent: (6) Urinary incontinence: (7) ESBL (extended spectrum beta-lactamase) producing bacteria infection: (8) Acute on chronic respiratory failure with hypoxia and hypercapnia: Plan Flash pulm edema Underlying hypertensive emergency Blood pressure significantly dropped with Nitropaste and labetalol I have removed her Nitropaste Monitor off nitroglycerin for now Optimize antihypertensive regimen Target map reduction 25% in next 6 to 8 hours I will keep her on BiPAP overnight Saturating 100% Acute hypoxic hypercapnic respite failure related to pulm edema CHF exacerbation Continue BiPAP overnight Repeat ABG within an hour Patient doing well on BiPAP Able to follow commands and protect airway Acute systolic CHF exacerbation High BNP Clinically looks fluid overloaded Right leg swelling Left Request venous Doppler Request D-dimer I will put her on high-dose diuretics Repeat echo Past medical history significant for non-STEMI patient did not go for angiogram because of chronic kidney disease, at this point creatinine is normal however GFR is not calculable Troponins are pending EKG without infarct changes, no active chest pain I will put her on therapeutic Lovenox for now until troponins are resulted Continue dual antiplatelet therapy History of ESBL UTI no active symptoms Patient came from home Will need home oxygen evaluation before discharge Full code goals of care discussed with the patient she is okay with chest compressions defibrillation and intubation however does not want to stay on a ventilator for prolonged period of time Cardiac diet DVT prophylaxis covered with therapeutic Lovenox History of melanotic stools, currently hemoglobin is stable Spoke with the ER physician and the family for admission, Patient has life-threatening respiratory acidosis with pH of 7.18, will need closer monitoring in ICU Attestations Medical Necessity Statement*: More than 2 midnights anticipated Coding Level of Care Code Critical Care >/= 30 minutes Critical care time (in minutes): 35 The high probability of a clinically significant, sudden or life threatening deterioration, as referenced in this documentation, required my full and direct attention, intervention and personal management. The critical care time shown is in addition to time spent performing any reported separately billable procedures and includes the following: [x] Data and vital sign review and interpretation [x ] Patient assessment, examination and intervention [x] Medication orders and management [x] Patient/Family updates as able [x] Care Coordination and Documentation. Diagnoses Right leg swelling M79.89 Peripheral arterial disease I73.9 Pulmonary edema J81.1 Hypertensive emergency I16.1 Retained ureteral stent Z96.0 Urinary incontinence R32 ESBL (extended spectrum beta-lactamase) producing bacteria infection A49.9; Z16.12 Acute on chronic respiratory failure with hypoxia and hypercapnia J96.21; J96.22
[2023-04-21 22:59] LABS: Alanine Aminotransferase 14 U/L (0-33); Albumin Level 4.3 g/dL (3.5-5.2); Alkaline Phosphatase 148 U/L (35-105); Anion Gap 18.5 (5-19); Aspartate Amino Transferase 26 U/L (0-32); Blood Urea Nitrogen 17 mg/dL (8-23); Calcium 9.4 mg/dL (8.5-10.5); Carbon Dioxide 19 mmol/L (22-29); Chloride 110 mmol/L (98-107); Globulin 2.5 g/dL (1.3-4.6); Glucose 223 mg/dL (65-115); NT Pro B Type Natriuretic Pept 25979 pg/mL (0-450); Osmolality Calculated 304 mOsm/kg (285-295); Potassium 4.5 mmol/L (3.5-5.1); Sodium 143 mmol/L (136-145); Total Bilirubin 0.2 mg/dL (0.15-1.2); Total Protein 6.8 g/dL (6.6-8.7)
[2023-04-21 23:23] LABS: D Dimer 1.63 ug/mIFEU (0-0.59)
[2023-04-21 23:24] LABS: Troponin(5th) Baseline 38 ng/L (0-10)
[2023-04-21 23:33] LABS: Procalcitonin 0.06 ng/mL (0-0.5)
[2023-04-22] VITALS (35 sets, daily range): BP systolic 90–132; BP diastolic 46–80; PULSE 77–91; RESP 15–34; TEMP 36.6–36.7; O2SAT 95–100; BMI 20.2
--- NOTE | 2023-04-22 00:01 | USCV_ITS ---
Deina Gerardo Age: 77 Gender: F : 1945 Exam Date: 04/22/2023 12:14 Ordering Phys: Wendy Loya MD Technologist: MOUSTAPHA [place] [facility] [place]: [place] BP: / HR: 80 Rhythm: Sinus Technical Quality: Suboptimal MEASUREMENTS (Male / Female) Normal Values 2D ECHO LV Diastolic Diameter PLAX 6.5 cm 4.2 - 5.9 / 3.9 - 5.3 cm LV Systolic Diameter PLAX 5.3 cm IVS Diastolic Thickness 0.5 cm 0.6 - 1.0 / 0.6 - 0.9 cm IVS Systolic Thickness 0.9 cm LVPW Diastolic Thickness 0.5 cm 0.6 - 1.0 / 0.6 - 0.9 cm LVPW Systolic Thickness 0.8 cm LVOT Diameter 1.9 cm LV Ejection Fraction 2D Teich 38.4 % LV Ejection Fraction MOD 2C 29.5 % LV Ejection Fraction 2C AL 30.6 % LA Diameter 2.8 cm IVC Diameter 2.6 cm M-MODE Aortic Annulus Diameter 2.6 cm LA Ao Ratio MM 0.9 MV E Point Septal Separation 1.7 cm DOPPLER LVOT Peak Velocity 75.0 cm/s MV Area PHT 3.9 cm squared Mitral E to A Ratio 0.9 MV E' Velocity 55.5 cm/s Mitral E to MV E' Ratio 22.6 Mitral E to LV E' Lateral Ratio 21.2 Mitral E to LV E' Septal Ratio 24.1 TR Peak Velocity 255.0 cm/s TR Peak Gradient 26.0 mmHg TV Peak E Velocity 42.0 cm/s Right Atrial Pressure 6.0 mmHg Pulmonary Artery Systolic Pressu 32.0 mmHg PV Peak Velocity 90.0 cm/s FINDINGS Left Ventricle Mildly increased left ventricular cavity size. Normal left ventricular wall thickness. Moderately decreased left ventricular systolic function. Global left ventricular hypokinesis. The hypokinesis appears to be global in nature, however in some views the inferior wall appears more hypokinetic. Grade 1 diastolic dysfunction. Overall ejection fraction is approximately 35%. Right Ventricle Normal right ventricular size and systolic function. Normal right ventricular systolic pressure. Right Atrium The right atrium is normal in size. Left Atrium The left atrium is normal in size. Mitral Valve Structurally normal mitral valve. Moderate mitral valve regurgitation. Aortic Valve Structurally normal aortic valve without significant sclerosis or stenosis. There is no aortic regurgitation. Tricuspid Valve Structurally normal tricuspid valve. Moderate tricuspid valve regurgitation. Pulmonic Valve Pulmonic valve not well visualized. Pericardium Normal pericardium without effusion. Aorta Normal ascending aorta dimension. IVC Inferior vena cava not visualized. CONCLUSIONS Mildly increased left ventricular cavity size. Normal left ventricular wall thickness. Moderately decreased left ventricular systolic function. Global left ventricular hypokinesis. The hypokinesis appears to be global in nature, however in some views the inferior wall appears more hypokinetic. Grade 1 diastolic dysfunction. Overall ejection fraction is approximately 35%. Structurally normal mitral valve. Moderate mitral valve regurgitation. Previous echo was done only 3 months ago, there has been no change. Dr. Kishan Lozano MD (Electronically Signed) Final Date: 23 April 2023 08:51 S
--- NOTE | 2023-04-22 00:42 | ECG_ITS ---
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 Measurements Intervals [place] Rate: 85 P: 12 GA: 169 QRS: 62 QRSD: 98 T: 79 QT: 411 QTc: 491 Interpretive Statements SINUS RHYTHM LEFT VENTRICULAR HYPERTROPHY AND ST-T CHANGE [VOLTAGE CRITERIA PLUS ST/T ABNORMALITY] Compared to ECG 04/21/2023 21:54:37 Sinus tachycardia no longer present ST (T wave) deviation still present Electronically Signed On 04-22-2023 8:47:49 CDT by Kishan Lozano M.D. [id number]
[2023-04-22 00:44] LABS: ABG PCO2 33.5 mmHg (35-45); ABG PH Result 7.34 (7.35-7.45); Base Excess ABG -6.9 mmol/L (-2.0-2.0); Blood Gas Sample Site Brachial, left; Blood Gas Sample Type Arterial; HCO3 ABG 18.1 mmol/L (22-26); Oxygen Device BIPAP
[2023-04-22 01:12] LABS: Troponin 5 2HR 45.66 ng/L (0-10)
[2023-04-22 01:17] LABS: Troponin 5 2HR Delta 7.66 ABS# (0-10)
[2023-04-22] MEDS: FUROsemide 10 mg/mL SDV 10mL 60 MG IVP (01:21)
[2023-04-22] MEDS: enoxaparin 60 mg/0.6 mL Syringe 50 MG SUBCUT ×2 (01:21→12:21)
[2023-04-22 01:26] LABS: Thyroid Stimulating Hormone 2.04 uIU/mL (0.27-4.20); Vitamin B12 245 pg/mL (232-1245)
--- NOTE | 2023-04-22 04:28 | ECG_ITS ---
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 Measurements Intervals [place] Rate: 85 P: 9 WI: 167 QRS: 61 QRSD: 100 T: 99 QT: 417 QTc: 498 Interpretive Statements SINUS RHYTHM LEFT VENTRICULAR HYPERTROPHY AND ST-T CHANGE [VOLTAGE CRITERIA PLUS ST/T ABNORMALITY] Compared to ECG 04/22/2023 00:25:55 No significant changes Electronically Signed On 04-22-2023 8:48:41 CDT by Kishan Lozano M.D. [id number]
[2023-04-22 04:32] LABS: Basophils % 0.3 %; Hematocrit 31.8 % (37.0-47.0); Hemoglobin 9.2 g/dL (11.5-15.3); Lymphocytes # 0.7 10^3/uL (0.8-4.8); Lymphocytes % 11.5 %; Mean Corpuscular HGB Conc 28.9 g/dL (30.0-36.0); Mean Corpuscular Hemoglobin 29.2 pg (28.0-34.0); Mean Platelet Volume 10.1 fL (7.4-10.4); Monocytes # 0.4 10^3/uL (0.2-0.9); Monocytes % 6.8 %; Neutrophils # 4.73 10^3/uL (1.8-7.7); Neutrophils % 81.1 %; Nucleated Red Blood Cells % 0 %; Platelet Count 182 10^3/cmm (130-400); Red Blood Count 3.15 10^6/uL (4.1-5.3); White Blood Count 5.8 10^3/uL (4.0-10.0)
[2023-04-22 04:47] LABS: ABG PCO2 35.1 mmHg (35-45); ABG PH Result 7.37 (7.35-7.45); Arterial Blood Gas Hematocrit 30.8 % (37-47); Base Excess ABG -4.2 mmol/L (-2.0-2.0); Blood Gas Sample Site Brachial, right; Blood Gas Sample Type Arterial; HCO3 ABG 20.5 mmol/L (22-26); Oxygen Device BIPAP
[2023-04-22 04:50] LABS: Troponin 5 6HR 44.99 ng/L (0-10)
[2023-04-22 04:52] LABS: Magnesium 2.1 mg/dL (1.7-2.3); Phosphorus 3.9 mg/dL (2.5-4.5)
[2023-04-22 04:57] LABS: Troponin 5 6HR Delta 6.99 ng/L (0-12)
[2023-04-22 05:06] LABS: Anion Gap 17.2 (5-19); Blood Urea Nitrogen 18 mg/dL (8-23); Calcium 9.1 mg/dL (8.5-10.5); Carbon Dioxide 20 mmol/L (22-29); Chloride 111 mmol/L (98-107); Glucose 113 mg/dL (65-115); Osmolality Calculated 301 mOsm/kg (285-295); Potassium 4.2 mmol/L (3.5-5.1); Sodium 144 mmol/L (136-145)
[2023-04-22] MEDS: isosorbide dinitrate 20 mg Tablet 10 MG PO (06:13)
[2023-04-22] MEDS: metoprolol tartrate 50 mg Tablet PO (06:14)
[2023-04-22] MEDS: pantoprazole DR 40 mg Tablet PO (06:14)
[2023-04-22] MEDS: aspirin 81 mg EC Tablet PO (06:14)
[2023-04-22] MEDS: amlodipine 10 mg Tablet PO (08:25)
[2023-04-22] MEDS: clopidogrel 75 mg Tablet PO (08:25)
[2023-04-22] MEDS: sennosides-docusate Tablet 1 TAB PO (08:25)
[2023-04-22] MEDS: FUROsemide 40 mg Tablet 60 MG PO (12:20)
[2023-04-22] MEDS: cyanocobalamin 1,000 mcg/mL SDV 1000 MCG IM (12:21)
--- NOTE | 2023-04-22 16:47 | P.PN_ITS ---
Subjective Subjective: Admitted overnight. H&P labs appreciated. Examination patient sitting up in chair with family at bedside. Velasquez in place. Responded well to diuretic therapy overnight. States breathing is better. Denies any nausea vomiting, headache or chest pain. States she was doing fine at her baseline until last evening when all of a sudden she became short of breath. Blood work appreciated for stable CBC, ABG showing normal PCO2 and a PO2 of 134 on a BiPAP though currently she is on nasal cannula 3 L, CMP showing creatinine of 1 with sodium 144, baseline troponin of 38 with a delta of 6.99 and 6 hours which is better than her last admission. Vitals/I&O/Wt Last Vital Signs Temp 97.7 F 04/21/23 23:51 Pulse 81 04/22/23 14:00 Resp 18 04/22/23 10:00 BP 118/59 04/22/23 00:30 Pulse Ox 100 04/22/23 10:00 O2 Del Method Nasal Cannula 04/22/23 10:00 O2 Flow Rate 3 04/22/23 10:00 FiO2 35 04/22/23 04:00 04/22/23 04/22/23 04/22/23 06:59 14:59 22:59 Intake Total 400 / 400 Output Total 1400 / 1400 700 / 700 Balance -1400 / -1400 -300 / -300 Weight last 48 hrs Weight 48.489 kg Weight 48.489 kg Weight 45.359 kg Physical Exam Narrative: General: No acute distress, AO x3, NC oxygen supplementation HEENT: PERRLA, pupils bilaterally equal and reactive Chest: Bronchial breath sounds over lower lung tompkins with occasional rhonchi and crackles present at the bases CVS: S1-S2 regular, pansystolic murmur present at the apex rating to anterior axillary line, no tachycardia, no gallops, no rubs Abdomen: Soft, nontender, no organomegaly, bowel sounds present, morbidly obese Neuro: No focal deficits, no facial deformity, AO x3, power 5/5 in all limbs Urinary Catheter Management: Velasquez: Cath Placed During This Visit: yes Reason for Continuing Indwelling Catheter: Accurate Measurement of Urinary Output in Critically Ill Patients Urinary Catheter Date of Insertion: 04/22/23 Urinary Catheter Time of Insertion: 01:26 Data 04/22/23 04:03 04/22/23 04:03 Micro: Microbiology 04/21/23 22:21 Blood Culture - Preliminary Blood SPECIMEN COLLECTED 04/21/23 22:10 Blood Culture - Preliminary Blood SPECIMEN COLLECTED A&P Assessment and plan (1) Acute on chronic respiratory failure with hypoxia and hypercapnia: (2) Pulmonary edema: (3) Hypertensive emergency: (4) Right leg swelling: (5) Peripheral arterial disease: (6) Retained ureteral stent: (7) Urinary incontinence: (8) ESBL (extended spectrum beta-lactamase) producing bacteria infection: Plan Hypoxic respiratory failure on admission secondary to flash pulm edema from hypertensive emergency: Resolved. Patient back to baseline. Supplementation keeping saturation over 90%. Continue Velasquez catheterization. Fluid restriction up to 1500 cc Switch to Lasix 60 mg oral daily. Strict improved charting, daily weights. Repeat echocardiogram ordered. As patient is on high dose of Lasix will have to monitor electrolytes closely. Hypertension: Goal blood pressure less than 140/90 mmHg. Blood pressure better controlled now. Continue with home dose of isosorbide dinitrate, metoprolol tartrate. Hold off on amlodipine for now as patient's blood pressures are less than 120 systolic for now. CAD: Recent non-ST elevation SC. Patient was advised CABG though she declined. Plan for medical management. Troponin cycle negative. Troponin levels lower than before. Patient denies of any chest pain. Continue with aspirin, Plavix, statin. Continue with metoprolol. Switch from full dose Lovenox to therapeutic dose Lovenox. Right leg swelling: Lower limb Dopplers taken. Will await results. History of ESBL UTI. No active signs of dysuria. CODE STATUS: Full code. Goals of care discussed with the patient and her son at bedside. Son will be the DPOA. She is okay with chest compressions defibrillation and intubation however does not want to stay on a ventilator for prolonged period of time Cardiac diet, fluid restriction as above DVT prophylaxis with Lovenox subcu 40 mg Protonix for PUD prophylaxis. Continue with ICU care for now for close intake and output charting. Attestations Medical Necessity Statement*: Requires further hospitalization for management of hypoxic respiratory failure in setting of flash pulmonary edema from hypertensive urgency Diagnoses Acute on chronic respiratory failure with hypoxia and hypercapnia J96.21; J96.22 Pulmonary edema J81.1 Hypertensive emergency I16.1 Right leg swelling M79.89 Peripheral arterial disease I73.9 Retained ureteral stent Z96.0 Urinary incontinence R32 ESBL (extended spectrum beta-lactamase) producing bacteria infection A49.9; Z16.12
--- NOTE | 2023-04-22 18:56 | PC.NURSE ---
Shift Summary: Uneventful shift. Patient was started on a 1500mL fluid restriction. Patient was up to a chair for about 6 hours. Ambulated in the merrill twice, about 150 feet each time, patient reports that she feels like she is getting around just as well as she does at home.
[2023-04-23] VITALS (44 sets, daily range): BP systolic 88–116; BP diastolic 37–67; PULSE 70–97; RESP 17–39; TEMP 36.7–37.1; O2SAT 83–100
[2023-04-23 04:41] LABS: Basophils % 0.9 %; Eosinophils # 0.2 10^3/uL (0.0-0.8); Eosinophils % 4.6 %; Hematocrit 28.8 % (37.0-47.0); Lymphocytes # 1.3 10^3/uL (0.8-4.8); Lymphocytes % 38.7 %; Mean Corpuscular HGB Conc 31.3 g/dL (30.0-36.0); Mean Corpuscular Hemoglobin 29.8 pg (28.0-34.0); Mean Corpuscular Volume 95.4 fl (81-99); Mean Platelet Volume 10.1 fL (7.4-10.4); Monocytes # 0.3 10^3/uL (0.2-0.9); Monocytes % 7.9 %; Neutrophils # 1.56 10^3/uL (1.8-7.7); Neutrophils % 47.6 %; Nucleated Red Blood Cells % 0 %; Platelet Count 191 10^3/cmm (130-400); Red Blood Count 3.02 10^6/uL (4.1-5.3); Red Cell Distribution Width 14.6 % (12.1-15.1); White Blood Count 3.3 10^3/uL (4.0-10.0)
[2023-04-23 05:09] LABS: Estmated Average Glucose 88; Hemoglobin A1C 4.7 % (4.0-6.0)
[2023-04-23 05:10] LABS: Chol HDL Ratio 1.95 mg/dL (0.0-4.40); Cholesterol 164 mg/dL (0-200); HDL Cholesterol 84 mg/dL (60-100); LDL Cholesterol Calculated 63 mg/dL (50-129); Magnesium 1.9 mg/dL (1.7-2.3); Phosphorus 3.7 mg/dL (2.5-4.5); Triglycerides 86 mg/dL (0-150); VLDL Cholestrol Calculation 17 mg/dL (0-30)
[2023-04-23 05:11] LABS: Alanine Aminotransferase 10 U/L (0-33); Albumin Level 3.7 g/dL (3.5-5.2); Alkaline Phosphatase 115 U/L (35-105); Anion Gap 16.9 (5-19); Aspartate Amino Transferase 17 U/L (0-32); Blood Urea Nitrogen 21 mg/dL (8-23); Calcium 8.9 mg/dL (8.5-10.5); Carbon Dioxide 23 mmol/L (22-29); Chloride 104 mmol/L (98-107); Globulin 2.1 g/dL (1.3-4.6); Glucose 91 mg/dL (65-115); Osmolality Calculated 293 mOsm/kg (285-295); Potassium 3.9 mmol/L (3.5-5.1); Sodium 140 mmol/L (136-145); Total Bilirubin 0.4 mg/dL (0.15-1.2); Total Protein 5.8 g/dL (6.6-8.7)
[2023-04-23 05:26] LABS: Folate Level 12.9 ng/mL (4.8-37.3)
[2023-04-23] MEDS: metoprolol tartrate 50 mg Tablet PO (06:02)
[2023-04-23] MEDS: aspirin 81 mg EC Tablet PO (06:02)
[2023-04-23] MEDS: pantoprazole DR 40 mg Tablet PO (06:02)
[2023-04-23] MEDS: isosorbide dinitrate 20 mg Tablet 10 MG PO (06:05)
--- NOTE | 2023-04-23 07:32 | PC.NURSE ---
Nurse assisted patient with a walk about unit. Walked about 200 feet. Home oxygen evaluation done during ambulation. Patient maintained an O2 sat of 98-100% on room air. She did not appear to be in or report any distress. Stated she feels as though she is at her home baseline.
[2023-04-23] MEDS: cyanocobalamin 1,000 mcg/mL SDV 1000 MCG IM (08:48)
[2023-04-23] MEDS: clopidogrel 75 mg Tablet PO (08:48)
[2023-04-23] MEDS: sennosides-docusate Tablet 1 TAB PO (08:48)
--- NOTE | 2023-04-23 10:59 | P.DS_ITS ---
Discharge Providers Date of Admission: 04/22/23 00:05 Date of Discharge: April 23, 2023 Attending Provider at Admission: Wendy Loya MD Attending Provider at Discharge: Tucker Magana MD Primary Care Provider: Catalino Sanders MD Diagnoses at Discharge Discharge Diagnosis (1) Acute on chronic respiratory failure with hypoxia and hypercapnia: Status: Acute (2) Pulmonary edema: Status: Acute (3) Hypertensive emergency: Status: Acute (4) Right leg swelling: Status: Inactive (5) Peripheral arterial disease: Status: Inactive (6) Retained ureteral stent: Status: Chronic (7) Urinary incontinence: Status: Acute (8) ESBL (extended spectrum beta-lactamase) producing bacteria infection: Status: Acute Reason for Visit Reason for Visit: RESP. DISTRESS Brief History: History as per HPI: Denia Gerardo is a 77 year old female previous history of non-STEMI which was managed medically angiogram was declined because of kidney disease, he also experienced melanotic stool ,GI bleed but anesthesia declined to do EGD because of her rising troponin, patient was discharged to SNF in February presented today with chief complaint of worsening of shortness of breath from home Patient stating that she was in her usual state of health when today all of a sudden she started becoming short of breath, there were people at home to put her on oxygen however it did not make any difference, she was hypotensive short of breath without significant chest pain.? She has not noticed any fever, productive cough .? In the ER she has been diagnosed with hypertensive emergency and flash pulm edema required BiPAP and use of labetalol oral nitroglycerin.? On admission her blood pressure was 210/10 50 mmHg after labetalol blood pressure 167/105 mmHg She will be admitted to ICU, acute hypercapnic respiratory failure on ABG, At the time of my evaluation blood pressure is 109/75 mmhg patient endorsing feeling much better on BiPAP he is on FiO2 40% BiPAP settings 16/8.? I have removed her Nitropaste As per the family she recently had venous Doppler which did not show DVT however her right leg is swollen more than left, she also has history of stent in her peripheral vessels right leg Hospital Course Hospital Course Patient was admitted to the ICU for further evaluation and management for hypoxic respiratory failure in setting of flash pulmonary edema and congestive heart failure. She was started on IV diuresis to which she responded well and has been on her baseline oxygen supplementation, walking capacity for more than 24 hours. Patient was transitioned over to oral diuretics and she continued to respond well. She denied of having any chest pain and troponin cycle during hospitalization remained in negative. Patient has been at her baseline oxygen supplementation and functional capacity for last 24 hours. She has been discharged in hemodynamically stable condition on oral Lasix 20 mg daily. Patient was counseled detail regarding congestive heart failure. She is to restrict fluid intake to less than 1500 cc, salt intake to less than 2 g daily. She was advised to check her weight daily at home. She is advised that her weight today would be her dry weight and if her body weight increases by around 5 pounds she is to take an extra dose of Lasix daily till her body weight comes down to her weight today. If she is not able to come down to her dry body weight in 1 week she is to call cardiology office for further recommendations. Patient was counseled in detail to take her medications regularly. Physical Exam Narrative: General: No acute distress, AO x3 HEENT: PERRLA, pupils bilaterally equal and reactive Chest: Bronchial breath sounds over lower lung tompkins with occasional rhonchi and crackles present at the bases CVS: S1-S2 regular, pansystolic murmur present at the apex rating to anterior axillary line, no tachycardia, no gallops, no rubs Abdomen: Soft, nontender, no organomegaly, bowel sounds present, morbidly obese Neuro: No focal deficits, no facial deformity, AO x3, power 5/5 in all limbs Urinary Catheter Management: Velasquez: Cath Placed During This Visit: yes Reason for Continuing Indwelling Catheter: Accurate Measurement of Urinary Output in Critically Ill Patients Urinary Catheter Date of Insertion: 04/22/23 Urinary Catheter Time of Insertion: 01:26 Discharge Data Studies Completed and Pending Completed Studies During Hospitalization Category Date Time Status XR chest 1V portable [id number] Stat Exams 04/21/23 21:46 Completed CV. echo complete* [id number] Routine Ultrasound 04/22/23 00:01 Completed Pending at discharge Category Date Time Status Blood Culture Stat Lab 04/21/23 22:21 Results MAG [Magnesium] AM LABS Lab 04/24/23 04:00 Ordered MAG [Magnesium] AM LABS Lab 04/25/23 04:00 Ordered PHOS [Phosphorus] AM LABS Lab 04/24/23 04:00 Ordered PHOS [Phosphorus] AM LABS Lab 04/25/23 04:00 Ordered Respiratory Panel 2 Routine Lab 04/23/23 09:51 [place] [id number] Routine Ultrasound 04/22/23 00:01 Taken Radiology Impressions Chest X-Ray 04/21/23 21:46 IMPRESSION: 1. Mild cardiomegaly is noted. 2. The lungs are hyperinflated, consistent with COPD. 3. Increased interstitial markings, suggesting interstitial pulmonary edema. 4. Trace right pleural effusion. Echocardiogram: ?CONCLUSIONS ?Mildly increased left ventricular cavity size. Normal left?ventricular wall thickness. Moderately decreased left?ventricular systolic function. Global left ventricular?hypokinesis.? The hypokinesis appears to be global in nature,?however in some views the inferior wall appears more ?hypokinetic.? Grade 1 diastolic dysfunction.? Overall ejection?fraction is approximately 35%. ?Structurally normal mitral valve. Moderate mitral valve?regurgitation. ?Previous echo was done only 3 months ago, there has been no?change. ?Dr. Kishan Lozano MD ?(Electronically Signed) ?Final Date:? ? ? 23 April 2023 ? 08:51 Laboratory Results WBC 3.3 10^3/uL (4.0-10.0) L 04/23/23 04:05 RBC 3.02 10^6/uL (4.1-5.3) L 04/23/23 04:05 Hgb 9.0 g/dL (11.5-15.3) L 04/23/23 04:05 Hct 28.8 % (37.0-47.0) L 04/23/23 04:05 MCV 95.4 fl (81-99) D 04/23/23 04:05 MCH 29.8 pg (28.0-34.0) 04/23/23 04:05 MCHC 31.3 g/dL (30.0-36.0) D 04/23/23 04:05 RDW 14.6 % (12.1-15.1) 04/23/23 04:05 Plt Count 191 10^3/cmm (130-400) 04/23/23 04:05 MPV 10.1 fL (7.4-10.4) 04/23/23 04:05 Neut % (Auto) 47.6 % 04/23/23 04:05 Lymph % (Auto) 38.7 % 04/23/23 04:05 [place] % (Auto) 7.9 % 04/23/23 04:05 Eos % (Auto) 4.6 % 04/23/23 04:05 Baso % (Auto) 0.9 % 04/23/23 04:05 Neut # (Auto) 1.56 10^3/uL (1.8-7.7) L 04/23/23 04:05 Lymph # (Auto) 1.3 10^3/uL (0.8-4.8) 04/23/23 04:05 [place] # (Auto) 0.3 10^3/uL (0.2-0.9) 04/23/23 04:05 Eos # (Auto) 0.2 10^3/uL (0.0-0.8) 04/23/23 04:05 Baso # (Auto) 0.0 10^3/uL (0.0-0.1) 04/23/23 04:05 Nucleated RBC % (auto) 0 % 04/23/23 04:05 Nucleated RBCs # 0.0 /100WBC 04/23/23 04:05 PT 13.30 SECONDS (12.1-14.9) 04/21/23 22:10 INR 0.98 (0.8-1.2) 04/21/23 22:10 D-Dimer 1.63 ug/mIFEU (0-0.59) H 04/21/23 22:10 Specimen Type Arterial 04/22/23 03:32 Sample Site Brachial, right 04/22/23 03:32 ABG pH 7.37 (7.35-7.45) 04/22/23 03:32 ABG pCO2 35.1 mmHg (35-45) 04/22/23 03:32 ABG pO2 134.0 mmHg (80.0-100.0) H 04/22/23 03:32 ABG HCO3 20.5 mmol/L (22-26) L 04/22/23 03:32 ABG Base Excess -4.2 mmol/L (-2.0-2.0) L 04/22/23 03:32 Roby Test N/a 04/22/23 03:32 Hematocrit 30.8 % (37-47) L 04/22/23 03:32 Hgb O2 Saturation 96.6 % (95-100) 04/21/23 21:50 Carboxyhemoglobin 2.2 %THgb (0.4-20.1) 04/21/23 21:50 Methemoglobin 0.6 % (0.4-1.5) 04/21/23 21:50 Total Hemoglobin 10.5 g/dL (12-16) L 04/21/23 21:50 O2 Delivery Device Bipap 04/22/23 03:32 FiO2 35.0 % 04/22/23 03:32 [employer] ID Alewe 04/22/23 03:32 Sodium 140 mmol/L (136-145) 04/23/23 04:05 Potassium 3.9 mmol/L (3.5-5.1) 04/23/23 04:05 Chloride 104 mmol/L (98-107) 04/23/23 04:05 Carbon Dioxide 23 mmol/L (22-29) 04/23/23 04:05 Anion Gap 16.9 (5-19) 04/23/23 04:05 BUN 21 mg/dL (8-23) 04/23/23 04:05 Creatinine 1.1 mg/dL (0.5-0.9) H 04/23/23 04:05 GFR Calculation Not Reportable 04/23/23 04:05 Glucose 91 mg/dL (65-115) 04/23/23 04:05 Estimat Average Glucose 88 04/23/23 04:05 Hemoglobin A1c 4.7 % (4.0-6.0) 04/23/23 04:05 Calculated Osmolality 293 mOsm/kg (285-295) 04/23/23 04:05 Calcium 8.9 mg/dL (8.5-10.5) 04/23/23 04:05 Phosphorus 3.7 mg/dL (2.5-4.5) 04/23/23 04:05 Magnesium 1.9 mg/dL (1.7-2.3) 04/23/23 04:05 Total Bilirubin 0.4 mg/dL (0.15-1.2) 04/23/23 04:05 AST 17 U/L (0-32) 04/23/23 04:05 ALT 10 U/L (0-33) 04/23/23 04:05 Alkaline Phosphatase 115 U/L (35-105) H 04/23/23 04:05 Troponin T Baseline 38 ng/L (0-10) H 04/21/23 22:10 Troponin T 120 Minute 45.66 ng/L (0-10) H 04/22/23 00:34 Delta Troponin T 7.66 ABS# (0-10) 04/22/23 00:34 Troponin T Hi Sens 6Hr 44.99 ng/L (0-10) H 04/22/23 04:03 Troponin T Hi Sens 6Hr Delta 6.99 ng/L (0-12) 04/22/23 04:03 C-Reactive Protein 5.0 mg/L (0.0-4.9) H 04/22/23 04:03 NT-Pro-B Natriuret Pep 81042 pg/mL (0-450) H 04/21/23 22:10 Total Protein 5.8 g/dL (6.6-8.7) L 04/23/23 04:05 Albumin 3.7 g/dL (3.5-5.2) 04/23/23 04:05 Globulin 2.1 g/dL (1.3-4.6) 04/23/23 04:05 Triglycerides 86 mg/dL (0-150) 04/23/23 04:05 Cholesterol 164 mg/dL (0-200) 04/23/23 04:05 LDL Cholesterol, Calc 63 mg/dL (50-129) 04/23/23 04:05 Total VLDL Cholesterol 17 mg/dL (0-30) 04/23/23 04:05 HDL Cholesterol 84 mg/dL (60-100) 04/23/23 04:05 Cholesterol/HDL Ratio 1.95 mg/dL (0.0-4.40) 04/23/23 04:05 Vitamin B12 245 pg/mL (232-1245) 04/22/23 00:34 Folate 12.9 ng/mL (4.8-37.3) 04/23/23 04:05 Procalcitonin 0.06 ng/mL (0-0.5) 04/21/23 22:10 TSH 2.04 uIU/mL (0.27-4.20) 04/22/23 00:34 Vitals Last Vital Signs Temp 98.7 F 04/23/23 04:00 Pulse 79 04/23/23 10:00 Resp 19 H 04/23/23 10:00 BP 97/48 04/23/23 10:00 Pulse Ox 98 04/23/23 10:02 O2 Del Method Room Air 04/23/23 10:00 O2 Flow Rate 3 04/23/23 05:55 FiO2 35 04/22/23 04:00 Discharge Plan Discharge Patient Disposition: Home Condition: Stable Prescriptions: New isosorbide dinitrate 5 mg tablet 5 mg PO BID Qty: 60 0RF Rx Instructions: allow nitrate-free interval of 12-14 hrs per 24-hr period Continued nitroglycerin 0.4 mg tablet, sublingual 0.4 mg sublingual Q5M PRN (Reason: chest pain) Qty: 25 3RF Rx Instructions: do not exceed 3 doses per episode fluticasone propionate [Flonase Allergy Relief] 50 mcg/actuation spray,s uspension 1 spray intranasal DAILY@07 Rx Instructions: administer into each nostril multivitamin Tablet 1 tab PO DAILY@ methenamine hippurate 1 gram tablet 1 g PO BID@ Rx Instructions: Take 1000 mg of Vitamin C with each dose of Methenamine potassium chloride [Klor-Con 10] 10 mEq Tablet Extended Release 10 meq PO DAILY@07 ascorbic acid (vitamin C) [Vitamin C] 1,000 mg Tablet 1,000 mg PO BID@ atorvastatin 40 mg tablet 40 mg PO BEDTIME@ clopidogrel 75 mg tablet 75 mg PO DAILY pantoprazole 40 mg tablet,delayed release (DR/EC) 40 mg PO DAILY@07 acetaminophen 650 mg Tablet Extended Release 1,300 mg PO Q12H PRN (Reason: Pain) Tylenol 325 mg Capsule 650 mg PO QID PRN (Reason: Pain) aspirin 81 mg Tablet,Delayed Release (Dr/Ec) 81 mg PO DAILY@07 Qty: 30 0RF metoprolol tartrate 50 mg tablet 50 mg PO BID@ Qty: 60 0RF Changed Lasix 20 mg Tablet 20 mg PO DAILY Qty: 20 0RF Held lisinopril 5 mg tablet 5 mg PO DAILY Hold Instructions: Resume on 04/30/23. Discontinued isosorbide dinitrate 10 mg tablet 10 mg PO BID@ Rx Instructions: allow nitrate-free interval of 12-14 hrs per 24-hr period Discharge Orders: Discharge Order (Routine); Ordered 04/23/23 Ordered By: Tucker Magana Referrals: Bianca Lawrence FNP [Nurse Practitioner] - 2 weeks Catalino Sanders MD [Primary Care Provider] - 7-10 days Discharge Diet: Regular Discharge Activity: Resume usual activity and Increase activity as tolerated Patient Instructions: Isosorbide Dinitrate (By mouth), Opioid Safety Activity Restrictions/Additional Instructions: She is to restrict fluid intake to less than 1500 cc, salt intake to less than 2 g daily. She was advised to check her weight daily at home. She is advised that her weight today would be her dry weight and if her body weight increases by around 5 pounds she is to take an extra dose of Lasix daily till her body weight comes down to her weight today. If she is not able to come down to her dry body weight in 1 week she is to call cardiology office for further recommendations. Patient was counseled in detail to take her medications regularly. Her home dose of isosorbide has been changed to 5 mg twice daily. She is to hold off from taking lisinopril for the next 1 week. Discharge Attestations Time Spent in Discharge Care*: greater than 30 min Specific Discharge Activities: educating patient, educating and/or supporting family/caregiver, discussing with pcp/other providers, discussing with rn case manager hospice/social workers/dc planners, documenting/other paperwork and evaluating patient/reviewing data Status at Discharge: Cognitive status at discharge: cognitively intact , Behavioral status at discharge: cooperative , Functional status at discharge: independent ambulation , Overall status at discharge: patient is back to baseline Quality Metrics Clinical Quality Measures [ No reported AMI, CVA or VTE this stay] Coding Level of Care Code 90384 Total time (in minutes) for Discharge: 60 Diagnoses Acute on chronic respiratory failure with hypoxia and hypercapnia J96.21; J96.22 Pulmonary edema J81.1 Hypertensive emergency I16.1 Right leg swelling M79.89 Peripheral arterial disease I73.9 Retained ureteral stent Z96.0 Urinary incontinence R32 ESBL (extended spectrum beta-lactamase) producing bacteria infection A49.9; Z16.12
[2023-04-23 13:08] LABS: Adenovirus Not Detected (NOT DETECT); Chlamydia Pneumoniae Not Detected (NOT DETECT); Coronavirus 229E,HKU1,NL63,OC4 Not Detected (NOT DETECT); Human Metapneumovirus Not Detected (NOT DETECT); Human Rhinovirus/Enterovirus Not Detected (NOT DETECT); Influenza A Not Detected (NOT DETECT); Influenza A H1 Not Detected (NOT DETECT); Influenza A H1-2009 Not Detected (NOT DETECT); Influenza A H3 Not Detected (NOT DETECT); Influenza B Not Detected (NOT DETECT); Mycoplasma Pneumoniae Not Detected (NOT DETECT); Parainfluenza Virus Type 1 Not Detected (NOT DETECT); Parainfluenza Virus Type 2 Not Detected (NOT DETECT); Parainfluenza Virus Type 3 Not Detected (NOT DETECT); Parainfluenza Virus Type 4 Not Detected (NOT DETECT); Respiratory Syncytial Virus A Not Detected (NOT DETECT); Respiratory Syncytial Virus B Not Detected (NOT DETECT); SARS-COV-2 Not Detected (NOT DETECT)
--- NOTE | 2023-04-23 13:19 | PC.NURSE ---
Patient discharged. IV removed. Velasquez Catheter removed. Prescriptions sent to [facility] pharmacy. New appointment, medication, and activity instructions reviewed with the patient, and again with her son Errol. Patient signature form singed. assisted out to vehicle driven by family member
[2023-05-24 12:41] LABS: ABG PH Result 7.18 (7.35-7.45)
== END 2023-04-23 13:22 | disposition home or self-care (01) | DRG 291 ==
LOC: ER 22:18 → ICU 23:07
PROVIDERS: Admitting Provider Internal Medicine; Emergency Provider Emergency Medicine; PCP Family Medicine; Visit Provider Student in an Organized Health Care Education/Training Program
DX: I11.0 Hypertensive heart disease with heart failure (principal); I50.23 Acute on chronic systolic (congestive) heart failure; J96.22 Acute and chronic respiratory failure with hypercapnia; J96.21 Acute and chronic respiratory failure with hypoxia; I16.1 Hypertensive emergency; Z16.12 Extended spectrum beta lactamase (ESBL) resistance; I25.2 Old myocardial infarction; F17.210 Nicotine dependence, cigarettes, uncomplicated; Z86.718 Personal history of other venous thrombosis and embolism; Z95.820 Peripheral vascular angioplasty status with implants and grafts; Z79.02 Long term (current) use of antithrombotics/antiplatelets; Z79.82 Long term (current) use of aspirin; I73.9 Peripheral vascular disease, unspecified; J43.9 Emphysema, unspecified; I25.10 Atherosclerotic heart disease of native coronary artery without angina pectoris; E78.5 Hyperlipidemia, unspecified; Z87.440 Personal history of urinary (tract) infections; Z96.641 Presence of right artificial hip joint
CPT/HCPCS: 36415; 36600; 51702; 71045; 80048; 80053; 80061; 82607; 82746; 82803; 82805; 83036; 83735; 83880; 84100; 84145; 84443; 84484; 85025; 85378; 85610; 86140; 87040; 87486; 87581; 87633; 93005; 93306; 93971; 94640; 94660; 94760; 96372; 96374; 96376; 97110; 97116; 97161; 99291; J1650; J1940; J3420; J3490; J7613

== ENCOUNTER → 2023-05-05 10:58 | Outpatient (BNVA) | payer MEDICARE, MEDICAID, SELFPAY | PROVIDERS: PCP Family Medicine; Visit Provider Nurse Practitioner Family | DX: I11.0 Hypertensive heart disease with heart failure (principal); I50.21 Acute systolic (congestive) heart failure; F17.210 Nicotine dependence, cigarettes, uncomplicated | CPT/HCPCS: 99213 ==

== ENCOUNTER → 2023-06-30 11:13 | Outpatient (BNVA) | payer MEDICARE, MEDICAID, SELFPAY | PROVIDERS: PCP Family Medicine; Visit Provider Internal Medicine Cardiovascular Disease | DX: I42.9 Cardiomyopathy, unspecified (principal); I25.10 Atherosclerotic heart disease of native coronary artery without angina pectoris; E78.5 Hyperlipidemia, unspecified; I73.9 Peripheral vascular disease, unspecified; I11.0 Hypertensive heart disease with heart failure; I50.21 Acute systolic (congestive) heart failure; F17.210 Nicotine dependence, cigarettes, uncomplicated | CPT/HCPCS: 99214 ==

== ENCOUNTER → 2023-08-15 10:00 | Outpatient (BNVA) | payer MEDICARE, MEDICAID, SELFPAY | PROVIDERS: PCP Family Medicine; Referring Provider Family Medicine; Visit Provider Obstetrics & Gynecology | DX: Z12.4 Encounter for screening for malignant neoplasm of cervix (principal) | CPT/HCPCS: 87624 ==

== ENCOUNTER → 2023-10-27 10:20 | Outpatient (BNVA) | payer MEDICARE, MEDICAID, SELFPAY | PROVIDERS: PCP Family Medicine; Visit Provider Nurse Practitioner Family | DX: I11.0 Hypertensive heart disease with heart failure (principal); I50.42 Chronic combined systolic (congestive) and diastolic (congestive) heart failure; F17.210 Nicotine dependence, cigarettes, uncomplicated | CPT/HCPCS: 99214 ==

== ENCOUNTER 2023-11-01 06:32 | Outpatient (CLI) | payer MEDICARE, MEDICAID, SELFPAY ==
--- NOTE | 2023-11-01 07:00 | USCV_ITS ---
Denia Gerardo Age: 77 Gender: F : 1945 Exam Date: 11/01/2023 06:53 Ordering Phys: Bianca Lawrence Technologist: EVELIA Exam Location: [facility] [place] Indication: ef BP: 120 / 70 HR: 0 Rhythm: Sinus Technical Quality: Adequate MEASUREMENTS (Male / Female) Normal Values 2D ECHO LV Diastolic Diameter PLAX 5.4 cm 4.2 - 5.9 / 3.9 - 5.3 cm IVS Diastolic Thickness 1.3 cm 0.6 - 1.0 / 0.6 - 0.9 cm IVS Systolic Thickness 2.0 cm LVPW Diastolic Thickness 1.5 cm 0.6 - 1.0 / 0.6 - 0.9 cm LVPW Systolic Thickness 1.9 cm LVOT Diameter 1.8 cm LV Ejection Fraction 2D Teich 60.9 % LV Ejection Fraction MOD 2C 7.6 % IVC Diameter 1.2 cm M-MODE LA Ao Ratio MM 1.1 AV Cusp Separation MM 1.9 cm DOPPLER AV Peak Velocity 89.0 cm/s LVOT Peak Velocity 83.0 cm/s AV Area Cont Eq vti 2.9 cm squared AV Area Cont Eq pk 2.4 cm squared MV Area PHT 3.5 cm squared Mitral E to A Ratio 0.6 TV Peak Velocity 191.0 cm/s TR Peak Velocity 239.0 cm/s TR Peak Gradient 22.8 mmHg Right Atrial Pressure 3.0 mmHg Pulmonary Artery Systolic Pressu 25.8 mmHg PV Peak Velocity 96.7 cm/s FINDINGS Left Ventricle Severe diffuse hypokinesia of the left-ventricule with an ejection fraction of 22%. Mildly dilated left ventricle Right Ventricle Normal right ventricular size and systolic function. Right Atrium Normal right atrial size. Left Atrium Mildly increased left atrial size. Mitral Valve Thickened mitral valve. Mild mitral annular calcification. Mild- moderate mitral valve regurgitation. Aortic Valve Thickened aortic valve. Tricuspid Valve No gross abnormalities noted Pulmonic Valve No gross abnormalities noted Pericardium No pericardial effusion. Aorta Normal aortic annulus size. IVC Normal inferior vena cava. CONCLUSIONS Severe diffuse hypokinesia of the left-ventricule with an ejection fraction of 22%. Mildly dilated left ventricle Mildly increased left atrial size. Thickened mitral valve. Mild mitral annular calcification. Mild-moderate mitral valve regurgitation. Thickened aortic valve. There is no pericardial effusion. There are no intracardiac masses. Compared to the study from 04/22/2023, there is worsening of the LV ejection fraction from 35% to 22% Dr David Horne MD FAC (Electronically Signed) Final Date: 04 November 2023 11:42 S
== END 2023-11-01 06:33 | disposition home or self-care (01) ==
LOC: RAD 06:32
PROVIDERS: PCP Family Medicine; Visit Provider Nurse Practitioner Family
DX: I34.0 Nonrheumatic mitral (valve) insufficiency (principal); I50.42 Chronic combined systolic (congestive) and diastolic (congestive) heart failure
CPT/HCPCS: 93306

== ENCOUNTER 2023-11-28 07:26 | Outpatient (CLI) | payer MEDICARE, MEDICAID, SELFPAY ==
--- NOTE | 2023-11-28 07:40 | CT_ITS ---
WS: [id number] CT ABDOMEN PELVIS TECHNIQUE: Noncontrast CT of the abdomen and pelvis with coronal and sagittal reformatted images. CLINICAL INFORMATION: ACUTE ABDOMINAL PAIN COMPARISON: None. DLP: 230.[address] scans at [facility] use at least one of these dose optimization techniques: automated e xposure control; mA and/or kV adjustment per patient size (includes targeted exams where dose is matc hed to clinical indication); or iterative reconstruction. FINDINGS: Lung bases are well aerated. Subsegmental atelectasis RIGHT lower lobe. [place] in the RIGHT middle lobe and RIGHT lower lobe laterally likely inflammatory. Normal noncontras t liver. Normal noncontrast spleen. Normal GE junction. Cholelithiasis. RIGHT renal cortical atrophy. Double-J RIGHT ureteral stent in place. No hydronephrosis in the RIGHT kidney. Dense vascular calcif ication. Aortic calcification. Images of the pelvis degraded due to RIGHT MEAGHAN. RIGHT external iliac b ypass graft partially visualized. Bilateral chronic appearing sacral insufficiency fractures. Osteopo rosis. Prior hysterectomy. Chronic appearing anterior wedging at T11. RIGHT MEAGHAN. Avascular necrosis LEFT fem oral head. Rectal distention and constipation. IMPRESSION: 1. RIGHT double-J ureteral stent in place. No hydronephrosis. 2. Cholelithiasis. 3. Dense vascular calcification. 4. Avascular necrosis LEFT femoral head. 5. Chronic appearing sacral insufficiency fractures. 6. Prior hysterectomy.
== END 2023-11-28 07:27 | disposition home or self-care (01) ==
LOC: RAD 07:28
PROVIDERS: PCP Family Medicine; Visit Provider Family Medicine
DX: R10.9 Unspecified abdominal pain (principal); Z96.0 Presence of urogenital implants; Z90.49 Acquired absence of other specified parts of digestive tract; I70.0 Atherosclerosis of aorta
CPT/HCPCS: 74176

== ENCOUNTER 2023-12-14 07:07 | Outpatient (CLI) | payer MEDICARE, MEDICAID, SELFPAY ==
--- NOTE | 2023-12-14 | ECG_ITS ---
[facility] Test Date: 2023-12-14 Pat Name: Denia Gerardo Department: Room: Gender: Female Bet Taker: Helga BarbourVictorina : 1945 Requested By: Bianca Lawrence Order Number: [id number] Cathleen MD: Spencer Maciel M.D. Interpretive Statements NAME OF STUDY: LEXISCAN SESTAMIBI STRESS TEST INDICATION: [Decreased LVEF] Procedure: At the baseline, the blood pressure was 135/58 mmHg with a heart rate of 68 bpm. The electrocardiogram showed normal sinus rhythm, LVH findings seen. The Lexiscan was infused over a period of 20 seconds. A total of 0.4 mg of Lexiscan was infused. The stress phase was continued for a total of 5 minutes. Heart rate was at the end of stress phase was 72 bpm and a blood pressure of 121/54 mmHg. The EKG at the peak infusion revealed normal sinus rhythm with no significant ST-T wave changes. Sestamibi was injected 20 seconds after the Lexiscan infusion. Blood pressure at the end of recovery phase was 114/56 mmHg with a heart rate of 79 bpm. Conclusion: 1. Normal EKG response to Lexiscan infusion 2. No Lexiscan induced chest pain or cardiac arrhythmia. 3. Normal blood pressure and heart rate response. 4. Sestamibi/sestamibi perfusion scan pending; see separate report. Electronically Signed On 12-28-2023 7:12:33 CDT by Spencer Maciel M.D. [email or web address]
[2023-12-14 07:31] VITALS: BMI 18.8
--- NOTE | 2023-12-14 07:32 | NMCV_ITS ---
NM jamel perf SPECT r/s* [id number] Denia Gerardo Age: 78 Gender: F : 1945 Exam Date: 12/14/2023 08:04 Ordering Phys: Bianca Lawrence Technologist: JOSE RAMON Blackburn Exam Location: [facility] Indications: SYSTOLIC CONGESTIVE HEART FAILSURE STRESS TEST Please see [facility] for full findings IMAGE PROTOCOL Rest/Stress 1 Lexiscan Day Radiopharmaceutical Dose (mCi) Administration Site Administered by Rest: Tc-99m 10.3 IV JOSE RAMON Ying Sestamibi Stress:Tc-99m 32.2 IV JOSE RAMON Blackburn Sestaminayan Rest: 14-Dec-2023 60 Discovery 630 Stress: 14-Dec-2023 30 Discovery 630 0.4mg Lexiscan. Images obtained in supine and prone position. SPECT RESULTS Technical Quality: Good Raw Data Analysis: Subdiaphragmatic activity Image Corrections: No attenuation or motion correction applied Summed Stress Score: 13 Summed Rest Score: 24 Summed Difference Score: 1 PERFUSION FINDINGS Large areas of fixed perfusion defects are noted in apical, septal, apical anterior, inferolateral and inferior quinn. This is consistent with large areas of prior infarct in all 3 coronary artery territories. No significant ischemia seen. FUNCTIONAL RESULTS (calculated via Gated SPECT) Stress Image LV EF (%): 33 Stress EDV (mL):116 TID: 1.15 Stress ESV (mL):78 FUNCTIONAL FINDINGS: LV systolic function is moderate to severely reduced with EF of 33%. Moderate to severe global hypokinesis is seen. IMPRESSIONS 1. Abnormal myocardial perfusion imaging with large areas of prior infarcts seen in all 3 coronary artery territories. 2. LV systolic function is moderate to severely reduced. Moderate to severe global hypokinesis is seen. Spencer Maciel MD (Electronically Signed) Final Date: 14 December 2023 11:47 S
[2023-12-14] MEDS: regadenoson 0.4 Mg/5 ml Syringe 0.400000000000000022 MG IVP (08:51)
[2023-12-14] MEDS: ondansetron 2 mg/ML SDV 2 mL 4 MG IVP (09:05)
[2023-12-14 09:19] VITALS: BP 114/56; PULSE 80
== END 2023-12-14 07:08 | disposition home or self-care (01) ==
LOC: CDL 07:07
PROVIDERS: PCP Family Medicine; Visit Provider Nurse Practitioner Family
DX: I50.20 Unspecified systolic (congestive) heart failure (principal)
CPT/HCPCS: 36415; 78452; 93017; 96374; 96375; A9500; J2405; J2785

== ENCOUNTER 2024-01-18 12:12 | Emergency (ER) | payer MEDICARE, MEDICAID, SELFPAY ==
--- NOTE | 2024-01-18 12:16 | XR_ITS ---
WS: [id number] Portable AP upright chest, 01/18/2024 Clinical Data: weakness Comparison: Portable chest, 04/21/2023 Findings: No nodules, masses or effusions are seen. The heart is slightly enlarged. The pulmonary vas cularity is not increased. No pneumonia or pneumothorax is seen. The aortic arch and descending thora cic aorta are tortuous. There is an orthopedic anchor in the left humeral head. XR/XR chest 1V portable [id number] Impression: Cardiomegaly and atherosclerosis.
[2024-01-18 12:23] VITALS: BP 102/37; PULSE 66; TEMP 36.6; O2SAT 99
--- NOTE | 2024-01-18 12:38 | W.ED.WEAKNES ---
HPI - Weakness General: Chief complaint: Weakness Stated complaint: weakness Time Seen by Provider: 01/18/24 12:13 History of Present Illness: 73-year-old female with a history of CHF, hypertension, coronary artery disease and COPD who presents to the emergency room with weakness and low blood pressure. Says her blood pressure usually just runs around 90-100 but today she had been out in the heat and when she came back and she started feeling kind of weak and her home health nurse checked her blood pressure and it was in the 70s systolic so she called an ambulance. Patient says she is feeling a bit better now. Pressure has improved upon arrival to the emergency room. She has no symptoms. No altered mental status. No focal motor deficits. No chest pain. No shortness of breath. No abdominal pain. No nausea or vomiting. No fevers. No cough. Review of Systems Narrative: Constitutional symptoms: Negative except as documented in HPI. Skin symptoms: Negative except as documented in HPI. Eye symptoms: Negative except as documented in HPI. ENMT symptoms: Negative except as documented in HPI. Respiratory symptoms: Negative except as documented in HPI. Cardiovascular symptoms: Negative except as documented in HPI. Gastrointestinal symptoms: Negative except as documented in HPI. Genitourinary symptoms: Negative except as documented in HPI. Musculoskeletal symptoms: Negative except as documented in HPI. Neurologic symptoms: Negative except as documented in HPI. Psychiatric symptoms: Negative except as documented in HPI. Endocrine symptoms: Negative except as documented in HPI. [facility] ED PFSH: Medical History Systolic CHF Acute CHF (congestive heart failure) GI bleed Upper gastrointestinal hemorrhage Acute anemia Elevated troponin Hip pain Heart failure Acute exacerbation of chronic obstructive pulmonary disease Dehydration Fall Respiratory failure with hypoxia and hypercapnia Lactic acidosis Cardiogenic shock UTI (urinary tract infection) Cystitis Heart failure, systolic, with acute decompensation CAD (coronary artery disease) COPD (chronic obstructive pulmonary disease) Tobacco abuse Peripheral arterial disease Dyslipidemia Essential hypertension Cardiomyopathy Hypoxia Acute systolic CHF (congestive heart failure) NSTEMI (non-ST elevated myocardial infarction) Elevated troponin Elevated troponin I level Emphysema lung Bacteriuria Pyuria Extrinsic ureteral obstruction Urinary incontinence Retained ureteral stent Surgical History H/O total hip arthroplasty right H/O shoulder surgery H/O arthroscopic knee surgery bilateral History of colon surgery H/O: H/O: hysterectomy H/O oral surgery Family History Mother , at age 79 Hypertension Peripheral artery disease Diabetes Father , at age 47 Cancer pancreatic and lung Physical Exam Narrative: EXAM NARRATIVE: General: Alert, no acute distress. Skin: Warm, dry. Head: Normocephalic, atraumatic. Neck: Supple, trachea midline. Eye: Extraocular movements are intact. Ears, nose, mouth and throat: mucosa moist. Cardiovascular: Regular, Normal peripheral perfusion. Respiratory: Lungs are clear to auscultation, respirations are non-labored, breath sounds are equal, Symmetrical chest wall expansion. Gastrointestinal: Soft, Nontender, Non distended, Normal bowel sounds. Musculoskeletal: Normal ROM, no deformity. Neurological: Alert and oriented, No focal neurological deficit observed. Psychiatric: Cooperative, appropriate mood & affect. Course Vital Signs: Vital signs: Vital Signs Temperature 97.9 F 01/18/24 12:23 Pulse Rate 68 01/18/24 14:41 Blood Pressure 142/58 01/18/24 14:41 Pulse Oximetry 100 01/18/24 14:41 Oxygen Delivery Me thod Room Air 01/18/24 14:41 MDM - Weakness Medical Decision Making Medical decision making: Differential diagnosis for patient presenting with generalized weakness including but not limited to and based on the above HPI, review of systems and physical exam: Sepsis. Dehydration. Renal failure. Electrolyte abnormalities. Anemia. Congestive heart failure. Hypotension. Coronary syndrome. Hepatitis. Cirrhosis. Infections such as pneumonia, urinary tract infection, Tick bourne illness, Cellulitis, Viral infections including influenza and Covid-19. Workup: labwork and lab/exam driven imaging ordered to evaluate, rule in and rule out above pathologies. Lab Review: Laboratory results were reviewed and interpreted by myself the emergency room physician. Hemoglobin is stable at 8.2. She runs between 8-10. BUN and creatinine are up some. She is 39 and 2.1 and her creatinine usually is around 1. Urinalysis shows 5-10 whites which would be significant for UTI. Chest x-ray: No acute process. No infiltrate. No pneumothorax. No cardiomegaly. This was reviewed and interpreted by myself the ER physician. EKG: Time 1250 rate 58. Sinus bradycardia. Nonspecific ST abnormalities that have been present on previous EKGs. no ectopy, normal OK & QRS intervals, This was reviewed and interpreted by myself the ER physician at 1252 Prolonged visit: Urinalysis not collected to over three hours into the patient's ER stay. I reviewed the patient's medical record. Reexamination: Patient is in no distress. No altered mental status. No increased work of breathing. Assessment and plan: Acute on chronic renal insufficiency Dehydration Urinary tract infection -1 L normal saline bolus and IV Rocephin. - Discharged home - Discussed plan with patient. Answered any questions. - Evaluation and treatment of this problem were appropriate in the emergency setting. Lab Data 01/18/24 12:38 01/18/24 12:38 Radiology Impressions Chest X-Ray 01/18/24 12:16 Impression: Cardiomegaly and atherosclerosis. Laboratory Results WBC 3.44 10^3/uL (3.29-11.43) 01/18/24 12:38 RBC 2.91 10^6/uL (3.85-5.65) L 01/18/24 12:38 Hgb 8.20 g/dL (11.27-16.99) L 01/18/24 12:38 Hct 26.5 % (36-47) L 01/18/24 12:38 MCV 91.1 fl (85-98) 01/18/24 12:38 MCH 28.2 pg (27-33) 01/18/24 12:38 MCHC 30.9 g/dL (30-55) 01/18/24 12:38 RDW 15.8 % (12.1-15.1) H 01/18/24 12:38 Plt Count 210 10^3/cmm (157-399) 01/18/24 12:38 MPV 10.5 fL (7.4-10.4) H 01/18/24 12:38 Neut % (Auto) 49.3 % 01/18/24 12:38 Lymph % (Auto) 34.9 % 01/18/24 12:38 [place] % (Auto) 10.5 % 01/18/24 12:38 Eos % (Auto) 3.5 % 01/18/24 12:38 Baso % (Auto) 1.5 % 01/18/24 12:38 Neut # (Auto) 1.70 10^3/uL (1.8-7.7) L 01/18/24 12:38 Lymph # (Auto) 1.2 10^3/uL (0.8-4.8) 01/18/24 12:38 [place] # (Auto) 0.4 10^3/uL (0.2-0.9) 01/18/24 12:38 Eos # (Auto) 0.1 10^3/uL (0.0-0.8) 01/18/24 12:38 Baso # (Auto) 0.1 10^3/uL (0.0-0.1) 01/18/24 12:38 Nucleated RBC % (auto) 0 % 01/18/24 12:38 Nucleated RBCs # 0.0 /100WBC 01/18/24 12:38 Sodium 141 mmol/L (136-145) 01/18/24 12:38 Potassium 5.3 mmol/L (3.5-5.1) H 01/18/24 12:38 Chloride 104 mmol/L (98-107) 01/18/24 12:38 Carbon Dioxide 24 mmol/L (22-29) 01/18/24 12:38 Anion Gap 18.3 (5-19) 01/18/24 12:38 BUN 39 mg/dL (8-23) H 01/18/24 12:38 Creatinine 2.1 mg/dL (0.5-0.9) H 01/18/24 12:38 GFR Calculation Not Reportable 01/18/24 12:38 Glucose 102 mg/dL (65-115) 01/18/24 12:38 Calculated Osmolality 302 mOsm/kg (285-295) H 01/18/24 12:38 Calcium 9.4 mg/dL (8.5-10.5) 01/18/24 12:38 Total Bilirubin 0.4 mg/dL (0.15-1.2) 01/18/24 12:38 AST 23 U/L (0-32) 01/18/24 12:38 ALT 10 U/L (0-33) 01/18/24 12:38 Alkaline Phosphatase 105 U/L (35-105) 01/18/24 12:38 Troponin T Baseline 30 ng/L (0-10) H 01/18/24 12:38 Troponin T 120 Minute 26.12 ng/L (0-10) H 01/18/24 14:47 Delta Troponin T -3.88 ABS# (0-10) L 01/18/24 14:47 C-Reactive Protein 3.0 mg/L (0.0-4.9) 01/18/24 12:38 Total Protein 7.2 g/dL (6.6-8.7) 01/18/24 12:38 Albumin 4.2 g/dL (3.5-5.2) 01/18/24 12:38 Globulin 3.0 g/dL (1.3-4.6) 01/18/24 12:38 Urine Color Yellow (Yellow) 01/18/24 15:15 Urine Appearance Cloudy (CLEAR) A 01/18/24 15:15 Urine pH 7 (5-7) 01/18/24 15:15 Ur Specific [place] 1.005 (1.005-1.030) 01/18/24 15:15 Urine Protein Neg (Negative) 01/18/24 15:15 Urine Glucose (UA) Norm (Normal) 01/18/24 15:15 Urine Ketones Negative (Negative) 01/18/24 15:15 Urine Blood 2+ (Negative) H 01/18/24 15:15 Urine Nitrate Positive (Negative) H 01/18/24 15:15 Urine Bilirubin Neg (Negative) 01/18/24 15:15 Urine Urobilinogen Norm mg/dL (Negative) 01/18/24 15:15 Ur Leukocyte Esterase 2+ (Negative) H 01/18/24 15:15 Urine RBC 0-4 /hpf (0-2) H 01/18/24 15:15 Urine WBC 5-10 /hpf (0-5) H 01/18/24 15:15 Ur Squamous Epith Cells 0-4 /hpf (0-5) H 01/18/24 15:15 Ur Transition Epith Cell 0-4 /hpf 01/18/24 15:15 Amorphous Sediment Not Reportable 01/18/24 15:15 Urine Bacteria 2+ /hpf (NONE) H 01/18/24 15:15 Urine Mucus None /hpf 01/18/24 15:15 All radiology interpretation(s) finalized by discharge Discharge Plan Discharge Patient Disposition: Home Clinical Impression: Acute on chronic renal insufficiency, Dehydration, Urinary tract infection Condition: Stable Prescriptions: New cefdinir 300 mg capsule 300 mg PO BID 5 Days Qty: 10 0RF No Action nitroglycerin 0.4 mg tablet, sublingual 0.4 mg sublingual Q5M PRN (Reason: chest pain) Qty: 25 3RF Rx Instructions: do not exceed 3 doses per episode fluticasone propionate [Flonase Allergy Relief] 50 mcg/actuation spray,suspension 1 spray intranasal DAILY@07 Rx Instructions: administer into each nostril sacubitril-valsartan 49-51 mg tablet 1 tab PO BID Qty: 90 3RF multivitamin Tablet 1 tab PO DAILY@07 potassium chloride [Klor-Con 10] 10 mEq Tablet Extended Release 10 meq PO DAILY@07 atorvastatin 40 mg tablet 40 mg PO BEDTIME@19 clopidogrel 75 mg tablet 75 mg PO DAILY pantoprazole 40 mg tablet,delayed release (DR/EC) 40 mg PO DAILY@07 acetaminophen [Tylenol] 325 mg Capsule 650 mg PO QID PRN (Reason: Pain) isosorbide dinitrate 5 mg tablet 5 mg PO BID Qty: 60 0RF Rx Instructions: allow nitrate-free interval of 12-14 hrs per 24-hr period furosemide [Lasix] 20 mg Tablet 20 mg PO DAILY Qty: 20 0RF metoprolol tartrate 50 mg tablet 50 mg PO BID escitalopram oxalate 5 mg tablet 5 mg PO DAILY Discharge Orders: Discharge ED (Routine); Ordered 01/18/24 Ordered By: Lore Buckley Referrals: Catalino Sanders MD [Primary Care Provider] - 4-7 days Discharge Diet: Usual diet Discharge Activity: Increase activity as tolerated Patient Instructions: Urinary Tract Infection in Older Adults (ED) Activity Restrictions/Additional Instructions: Thank you for choosing [facility] for your healthcare needs today. Please realize this is an emergency room and that we are providing you with a medical screening exam and this may not be complete and all inclusive of all the testing and or work up that you may need to determine your ailment or severity of your illness. You have been screened and evaluated and felt safe for discharge. Health conditions do change or evolve sometimes and as such it is important that you follow up with your Primary Doctor to be re checked, 3-5 days is a general good time frame for follow up. You are always welcome to return to the ED for re assessment if your symptoms are worsening or you have new concerns Coding Level of Care Code ED Plastics Tooling Engineer for Isi Calhoun
[2024-01-18 12:47] LABS: Basophils # 0.1 10^3/uL (0.0-0.1); Basophils % 1.5 %; Eosinophils # 0.1 10^3/uL (0.0-0.8); Eosinophils % 3.5 %; Hematocrit 26.5 % (36-47); Lymphocytes # 1.2 10^3/uL (0.8-4.8); Lymphocytes % 34.9 %; Mean Corpuscular HGB Conc 30.9 g/dL (30-55); Mean Corpuscular Hemoglobin 28.2 pg (27-33); Mean Corpuscular Volume 91.1 fl (85-98); Mean Platelet Volume 10.5 fL (7.4-10.4); Monocytes # 0.4 10^3/uL (0.2-0.9); Monocytes % 10.5 %; Neutrophils % 49.3 %; Nucleated Red Blood Cells % 0 %; Platelet Count 210 10^3/cmm (157-399); Red Blood Count 2.91 10^6/uL (3.85-5.65); Red Cell Distribution Width 15.8 % (12.1-15.1); White Blood Count 3.44 10^3/uL (3.29-11.43)
--- NOTE | 2024-01-18 12:50 | ECG_ITS ---
[facility] Test Date: 2024-01-18 Pat Name: Denia Gerardo Department: Room: Gender: Female Telephonic Case Manager: : 1945 Requested By: Lore Durán Order Number: [id number] Connolly MD: Spencer Maciel M.D. Measurements Intervals [place] Rate: 58 P: 28 NM: 177 QRS: 67 QRSD: 94 T: 254 QT: 454 QTc: 449 Interpretive Statements SINUS BRADYCARDIA ST DEVIATION AND MODERATE T-WAVE ABNORMALITY, CONSIDER LATERAL ISCHEMIA [-0.1+ mV T-WAVE IN I/aVL/V5/V6] ST DEVIATION AND MODERATE T-WAVE ABNORMALITY, CONSIDER INFERIOR ISCHEMIA [-0.1+ mV T-WAVE IN II/aVF] Compared to ECG 04/22/2023 04:28:50 T-wave abnormality now present Possible ischemia now present Sinus rhythm no longer present Left ventricular hypertrophy no longer present ST (T wave) deviation no longer present Electronically Signed On 01-18-2024 17:12:22 CDT by Spencer Maciel M.D. [email or web address]
[2024-01-18 12:53] VITALS: BP 114/50
[2024-01-18 13:08] LABS: Alanine Aminotransferase 10 U/L (0-33); Albumin Level 4.2 g/dL (3.5-5.2); Alkaline Phosphatase 105 U/L (35-105); Blood Urea Nitrogen 39 mg/dL (8-23); Calcium 9.4 mg/dL (8.5-10.5); Carbon Dioxide 24 mmol/L (22-29); Chloride 104 mmol/L (98-107); Creatinine Clr Calc Pharmacy 16.7119; Glucose 102 mg/dL (65-115); Osmolality Calculated 302 mOsm/kg (285-295); Sodium 141 mmol/L (136-145); Total Bilirubin 0.4 mg/dL (0.15-1.2); Total Protein 7.2 g/dL (6.6-8.7)
[2024-01-18 13:11] LABS: Troponin(5th) Baseline 30 ng/L (0-10)
[2024-01-18 13:17] LABS: Anion Gap 18.3 (5-19); Aspartate Amino Transferase 23 U/L (0-32); Potassium 5.3 mmol/L (3.5-5.1)
[2024-01-18] MEDS: sodium chloride 0.9% 1,000 ML 999 ML IV (13:48)
[2024-01-18 14:41] VITALS: BP 142/58; PULSE 68; O2SAT 100
[2024-01-18 15:20] LABS: Troponin 5 2HR 26.12 ng/L (0-10)
[2024-01-18 15:21] LABS: Troponin 5 2HR Delta -3.88 ABS# (0-10)
[2024-01-18 15:54] LABS: Bilirubin Urine Neg (Negative); Blood Urine 2+ (Negative); Glucose Urine UA Norm (Normal); Ketones Urine Negative (Negative); Leukocyte Esterase Urine 2+ (Negative); Nitrate Urine Positive (Negative); Protein Urine Neg (Negative); Specific Gravity, Urine 1.005 (1.005-1.030); Urine Appearance Cloudy (CLEAR); Urine Color Yellow (Yellow); Urobilinogen Urine Norm (Negative); pH Urine 7 (5-7)
[2024-01-18 15:56] LABS: Add Urine Culture? Yes; Bacteria Urine 2+ /hpf; RBC Urine 0-4 /hpf (0-2); Squamous Epithelial Cell Urine 0-4 /hpf (0-5); Transitional Epi Cells Urine 0-4 /hpf
[2024-01-18] MEDS: cefTRIAXone 1,000 MG in sodium chloride 0.9% (plus) 50 ML 100 MG IV (16:13)
== END 2024-01-18 16:50 | disposition home or self-care (01) ==
PROVIDERS: Emergency Provider Emergency Medicine; PCP Family Medicine
DX: I13.0 Hypertensive heart and chronic kidney disease with heart failure and stage 1 through stage 4 chronic kidney disease, or unspecified chronic kidney disease (principal); N18.9 Chronic kidney disease, unspecified; I50.9 Heart failure, unspecified; E86.0 Dehydration; N39.0 Urinary tract infection, site not specified; Z79.02 Long term (current) use of antithrombotics/antiplatelets; J44.9 Chronic obstructive pulmonary disease, unspecified; I25.10 Atherosclerotic heart disease of native coronary artery without angina pectoris; E78.5 Hyperlipidemia, unspecified; I25.2 Old myocardial infarction; Z87.440 Personal history of urinary (tract) infections
CPT/HCPCS: 36415; 71045; 80053; 81001; 84484; 85025; 86140; 87077; 87086; 87186; 93005; 96374; 99285; J0696; J7030

== ENCOUNTER 2024-02-28 09:37 | Outpatient (CLI) | payer MEDICARE, MEDICAID, SELFPAY ==
--- NOTE | 2024-02-28 09:30 | USCV_ITS ---
Denia Gerardo Age: 78 Gender: F : 1945 Exam Date: 02/28/2024 10:05 Ordering Phys: Bianca Lawrence Technologist: CT Exam Location[place] [facility] [place]ication: ef BP: 80 / 48 HR: Rhythm: Sinus Technical Quality: Adequate MEASUREMENTS (Male / Female) Normal Values 2D ECHO LVOT Diameter 2.0 cm LV Ejection Fraction MOD 2C 39.7 % LV Ejection Fraction 2C AL 43.5 % LA Diameter 3.5 cm RA Systolic Volume 4C AL 19.4 ml RA Systolic Volume 4C MOD 19.2 ml LA Sys Volume AL 36.4 cm cubed LA Sys Volume Index AL 25.7 cm cubed/m squared Aorta at Sinotubular Diameter 1.8 cm IVC Diameter 1.5 cm M-MODE LA Ao Ratio MM 1.4 AV Cusp Separation MM 2.2 cm FINDINGS Left Ventricle Right Ventricle Right Atrium Left Atrium Mitral Valve Aortic Valve Tricuspid Valve Pulmonic Valve Pericardium Aorta IVC CONCLUSIONS Please note that this is a limited study Normal left ventricle size, moderately depressed left ventricular ejection fraction 40% with global hypokinesis. Normal right and left atrium No significant pericardial effusion Wendy Alicea MD (Electronically Signed) Final Date: 28 February 2024 23:00 S
== END 2024-02-28 09:38 | disposition home or self-care (01) ==
LOC: RAD 09:38
PROVIDERS: PCP Family Medicine; Visit Provider Nurse Practitioner Family
DX: I50.20 Unspecified systolic (congestive) heart failure (principal)
CPT/HCPCS: 93308

== ENCOUNTER 2024-03-11 06:00 | Outpatient (RCR) | payer MEDICARE, MEDICAID, SELFPAY | END 2024-04-10 23:59 | disposition home or self-care (01) | LOC: SOT 06:00 | PROVIDERS: PCP Family Medicine; Visit Provider Family Medicine | DX: M25.552 Pain in left hip (principal) | CPT/HCPCS: 97167 ==

== ENCOUNTER 2024-03-28 11:25 | Emergency (ER) | payer MEDICARE, MEDICAID, SELFPAY ==
[2024-03-28 11:26] VITALS: BP 114/65; PULSE 72; TEMP 36.4; O2SAT 98
== END 2024-03-28 12:15 | disposition left against medical advice (07) ==
PROVIDERS: Emergency Provider Family Medicine; PCP Family Medicine
DX: Z53.21 Procedure and treatment not carried out due to patient leaving prior to being seen by health care provider (principal)

== ENCOUNTER 2024-04-11 06:00 | Outpatient (RCR) | payer MEDICARE, MEDICAID, SELFPAY | END 2024-05-11 18:00 | disposition home or self-care (01) | LOC: SOT 06:00 | PROVIDERS: PCP Family Medicine; Visit Provider Family Medicine | DX: I10 Essential (primary) hypertension (principal); I50.22 Chronic systolic (congestive) heart failure | CPT/HCPCS: 99214 ==

== ENCOUNTER 2024-05-26 21:33 | Emergency (ER) | payer MEDICARE, MEDICAID, SELFPAY ==
[2024-05-26 22:23] VITALS: BP 123/66; PULSE 74; RESP 22; TEMP 36.6; O2SAT 96; BMI 17.2
--- NOTE | 2024-05-26 23:26 | XRR_ITS ---
PROCEDURE INFORMATION: Exam: XR Chest Exam date and time: 05/26/2024 11:32 PM Age: 78 years old Clinical indication: Cough and shortness of breath; Patient HX: Cough with SOB. TECHNIQUE: Imaging protocol: Radiologic exam of the chest. Views: 1 view. COMPARISON: CR XR chest 1V portable [id number] 05/16/2024 12:24 FINDINGS: Lungs: Mild pulmonary hyperinflation consistent with COPD. Increased interstitial markings at the left lung base that may be secondary to rotation of the patient. Pleural spaces: No pleural effusion or pneumothorax. Heart/Mediastinum: Borderline cardiomegaly. Bones/joints: No acute fracture. There is an orthopedic anchor or on the left humeral head. XR/XR chest 1V portable [id number] IMPRESSION: 1. Pulmonary hyperinflation consistent with COPD. 2. Increased interstitial markings at the left lung base that may be secondary to rotation of the patient. Atelectasis, pneumonitis may present a similar picture.
[2024-05-26 23:56] VITALS: BP 153/76; O2SAT 95
[2024-05-27] MEDS: ipratropium-albuterol 3 mL Neb INHALATION (00:24)
[2024-05-27 00:25] VITALS: RESP 16; O2SAT 94
[2024-05-27 00:54] LABS: Influenza A NEGATIVE (Negative); Influenza B NEGATIVE (Negative); Respiratory Syncytial Virus Ce NEGATIVE (Negative)
[2024-05-27 01:13] LABS: Covid PCR Positive (Negative)
--- NOTE | 2024-05-27 01:19 | ED_ITS ---
HPI - SOB/Dyspnea General: Chief Complaint: Shortness of Breath/Dyspnea Stated Complaint: SOB Time Seen by Provider: 05/26/24 23:22 History of Present Illness: HPI Narrative: 78-year-old female. She has a history o f having COVID at the beginning of this year, with a prolonged hospitalization. She presents with cough, some shortness of breath, and some yellow sputum production that started yesterday. No fever. No definite known sick contacts. She does not normally use oxygen. She does not use nebulizer machine. Related Data Home Medications Medication Instructions Recorded Confirmed fluticasone propionate 50 1 spray intranasal DAILY@07/26/22 04/11/24 mcg/actuation nasal spray,suspension (Flonase Allergy Relief) multivitamin 1 tab PO DAILY@01/23/23 04/11/24 potassium chloride 10 mEq 10 meq PO DAILY@02/03/23 04/11/24 tablet,extended release (Klor-Con) atorvastatin 40 mg tablet 40 mg PO BEDTIME@03/02/23 04/11/24 clopidogrel 75 mg tablet 75 mg PO DAILY 03/02/23 04/11/24 pantoprazole 40 mg tablet,delayed 40 mg PO DAILY@03/02/23 04/11/24 release acetaminophen 325 mg capsule 650 mg PO QID PRN Pain 04/22/23 04/11/24 (Tylenol) escitalopram oxalate 5 mg tablet 5 mg PO DAILY 01/18/24 04/11/24 metoprolol tartrate 50 mg tablet 50 mg PO BID 01/18/24 04/11/24 Previous Rx's Medication Instructions Recorded nitroglycerin 0.4 mg sublingual 0.4 mg sublingual Q5M PRN chest 10/20/22 tablet pain #25 tabs furosemide 20 mg tablet (Lasix) 20 mg PO DAILY #20 tabs 04/23/23 isosorbide dinitrate 5 mg tablet 5 mg PO BID #60 tabs 04/23/23 sacubitril 49 mg-valsartan 51 mg 1 tab PO BID #90 tabs 05/10/24 tablet albuterol sulfate 90 mcg/actuation 2 inh inhalation Q4H PRN shortness 05/27/24 aerosol inhaler of breath or wheezing #6.7 grams methylprednisolone 4 mg tablets in See Rx Instructions PO .COMPLEX 09/16/24 a dose pack (Medrol (Harry)) #21 ea nirmatrelvir 300 mg (150 mg See Rx Instructions PO .COMPLEX 05/27/24 x2)-ritonavir 100 mg tablet,dose #30 ea pack (Paxlovid) Allergies Allergy/AdvReac Type Severity Reaction Status Date / Time meperidine [From Demerol] Allergy Unknown Unknown Verified 05/26/24 22:26 morphine Allergy Unknown Unknown Verified 05/26/24 22:26 PFSH ED PFSH: Medical History Systolic CHF Acute CHF (congestive heart failure) GI bleed Upper gastrointestinal hemorrhage Acute anemia Elevated troponin Hip pain Heart failure Acute exacerbation of chronic obstructive pulmonary disease Dehydration Fall Respiratory failure with hypoxia and hypercapnia Lactic acidosis Cardiogenic shock UTI (urinary tract infection) Cystitis Heart failure, systolic, with acute decompensation CAD (coronary artery disease) COPD (chronic obstructive pulmonary disease) Tobacco abuse Peripheral arterial disease Dyslipidemia Essential hypertension Cardiomyopathy Hypoxia Acute systolic CHF (congestive heart failure) NSTEMI (non-ST elevated myocardial infarction) Elevated troponin Elevated troponin I level Emphysema lung Bacteriuria Pyuria Extrinsic ureteral obstruction Urinary incontinence Retained ureteral stent Surgical History H/O total hip arthroplasty right H/O shoulder surgery H/O arthroscopic knee surgery bilateral History of colon surgery H/O: H/O: hysterectomy H/O oral surgery Family History Mother , at age 79 Hypertension Peripheral artery disease Diabetes Father , at age 47 Cancer pancreatic and lung Social History Smoking and tobacco/nicotine status: current every day tobacco/nicotine user (0.5 ppd or less) Physical Exam Const: COMMON NORMALS: no acute distress GENERAL APPEARANCE: cooperative and frail appearing (Mild) HENMT: COMMON NORMALS: normocephalic, atraumatic and Normal external nose present HEAD & SCALP: normocephalic and atraumatic FACE & SINUS: normal facial exam and face symmetric NOSE: Normal external nose present Eye: COMMON NORMALS: Equal, round and reactive pupils present and EOMs intact bilaterally PUPIL: Yes Equal, round and reactive pupils present Neck/C-Spine: GENERAL: Yes trachea midline Chest: CHEST: Yes Symmetrical chest wall rise Resp: COMMON NORMALS: normal respiratory effort, No retractions, No use of accessory muscles and clear to auscultation bilaterally EFFORT & INSPECTION: Yes tachypneic (Mild) AUSCULTATION: clear to auscultation bilaterally Cardio: COMMON NORMALS: regular rate and regular rhythm RATE: regular rate RHYTHM: regular rhythm GI: COMMON NORMALS: Normal to inspection, nondistended, normoactive bowel sounds present Extremity: COMMON NORMALS: no pedal edema Neuro: HERNANDEZ COMA SCALE: document GCS findings Hernandez coma scale eye opening: Spontaneous Hernandez coma scale verbal response: Orientated Blanca coma scale motor response: Obey commands Hernandez coma scale total score: 15 SENSORY EXAM: Yes extremities (intact) Psych: COMMON NORMALS: speech normal SPEECH: Yes normal speech Skin: COMMON NORMALS: no rashes or lesions noted GENERAL SKIN EXAM: no rashes or lesions noted Course Vital Signs: Vital signs: Vital Signs Temperature 97.8 F 05/26/24 22:23 Pulse Rate 88 05/27/24 01:41 Respiratory Rate 21 H 05/27/24 01:41 Blood Pressure 151/68 05/27/24 01:41 Pulse Oximetry 96 05/27/24 01:41 Oxygen Delivery Me thod Room Air 05/27/24 01:30 MDM - SOB/Dyspnea Medical Decision Making Chest x-ray is negative. She is positive for COVID by PCR. Since she is early in the illness, and has had significant sequela following COVID prior, she will be prescribed Paxlovid. She will also be placed on a Medrol Dosepak, and albuterol inhaler to use at home. She knows to return for any worsening symptoms. Lab Data Labs/Radiology: Radiology Impressions Chest X-Ray 05/26/24 23:26 IMPRESSION: 1. Pulmonary hyperinflation consistent with COPD. 2. Increased interstitial markings at the left lung base that may be secondary to rotation of the patient. Atelectasis, pneumonitis may present a similar picture. Laboratory Results Coronavirus (PCR) Positive (Negative) A 05/27/24 00:00 Influenza A (PCR) Negative (Negative) 05/27/24 00:00 Influenza Type B (PCR) Negative (Negative) 05/27/24 00:00 RSV (PCR) Negative (Negative) 05/27/24 00:00 All radiology interpretation(s) finalized by discharge Discharge Plan Discharge Patient Disposition: Home Clinical Impression: COVID-19 Condition: Stable Prescriptions: New Medrol (Harry) 4 mg tablets,dose pack See Rx Instructions .ROUTE .COMPLEX Qty: 21 0RF Rx Instructions: orally per package directions albuterol sulfate 90 mcg/actuation HFA aerosol inhaler 2 inh INHALATION Q4H PRN (Reason: shortness of breath or wheezing) Qty: 6.7 1RF Paxlovid 300 mg (150 mg x 2)-100 mg tablets,dose pack See Rx Instructions .ROUTE .COMPLEX Qty: 30 0RF Rx Instructions: take TWO 150 mg tablets of nirmatrelvir with ONE 100 mg tablet of ritonavir twice daily for 5 days No Action nitroglycerin 0.4 mg tablet, sublingual 0.4 mg sublingual Q5M PRN (Reason: chest pain) Qty: 25 3RF Rx Instructions: do not exceed 3 doses per episode fluticasone propionate [Flonase Allergy Relief] 50 mcg/actuation sp ray,suspension 1 spray intranasal DAILY@07 Rx Instructions: administer into each nostril sacubitril-valsartan 49-51 mg tablet 1 tab PO BID Qty: 90 3RF multivitamin Tablet 1 tab PO DAILY@07 potassium chloride [Klor-Con 10] 10 mEq Tablet Extended Release 10 meq PO DAILY@07 atorvastatin 40 mg tablet 40 mg PO BEDTIME@19 clopidogrel 75 mg tablet 75 mg PO DAILY pantoprazole 40 mg tablet,delayed release (DR/EC) 40 mg PO DAILY@07 acetaminophen [Tylenol] 325 mg Capsule 650 mg PO QID PRN (Reason: Pain) isosorbide dinitrate 5 mg tablet 5 mg PO BID Qty: 60 0RF Rx Instructions: allow nitrate-free interval of 12-14 hrs per 24-hr period furosemide [Lasix] 20 mg Tablet 20 mg PO DAILY Qty: 20 0RF metoprolol tartrate 50 mg tablet 50 mg PO BID escitalopram oxalate 5 mg tablet 5 mg PO DAILY Discharge Orders: Discharge ED (Routine); Ordered 05/27/24 Ordered By: Xiang Clark Referrals: Catalino Sanders MD [Primary Care Provider] - 1-3 days Patient Instructions: COVID-19 (Coronavirus Disease 2019) (ED), Opioid Safety, Pain Management Activity Restrictions/Additional Instructions: Use your albuterol inhaler every 4 hours while awake for the first 48 hours, then as you needed following that. Other medication as directed. Return for worsening shortness of breath, inability to control fever, chest pain, any other concerning symptoms. See your doctor this week. Coding Level of Care Code ED Manager Of Marketing for Isi Calhoun
[2024-05-27 01:30] VITALS: BP 151/68; PULSE 87; RESP 21
[2024-05-27] MEDS: dexamethasone 10 mg/mL INJ 8 MG PO (01:35)
[2024-05-27 01:41] VITALS: BP 151/68; PULSE 88; RESP 21; O2SAT 96
== END 2024-05-27 02:00 | disposition home or self-care (01) ==
PROVIDERS: Emergency Provider Emergency Medicine; PCP Family Medicine
DX: U07.1 COVID-19 (principal); Z79.02 Long term (current) use of antithrombotics/antiplatelets; F17.210 Nicotine dependence, cigarettes, uncomplicated; I11.0 Hypertensive heart disease with heart failure; I50.21 Acute systolic (congestive) heart failure; J44.9 Chronic obstructive pulmonary disease, unspecified; I25.10 Atherosclerotic heart disease of native coronary artery without angina pectoris; E78.5 Hyperlipidemia, unspecified; I25.2 Old myocardial infarction
CPT/HCPCS: 0241U; 71045; 94640; 99284; J1100

== ENCOUNTER 2024-09-10 09:49 | Emergency (ER) | payer MEDICARE, MEDICAID, SELFPAY ==
[2024-09-10 09:49] VITALS: BP 178/54; PULSE 69; RESP 17; TEMP 36.6; O2SAT 99; BMI 17.2
--- NOTE | 2024-09-10 09:59 | CTR_ITS ---
PROCEDURE INFORMATION: Exam: CT Cervical Spine Without Contrast Exam date and time: 09/10/2024 10:19 AM Age: 78 years old Clinical indication: Injury or trauma; Blunt trauma; Patient HX: PT was asleep on couch this am. Woke up to a rude awaken. PT had rolled off couch and face planted on ground. Hematoma to RT frontal TECHNIQUE: Imaging protocol: Computed tomography of the cervical spine without contrast. Radiation optimization: All CT scans at this facility use at least one of these dose optimization techniques: automated exposure control; mA and/or kV adjustment per patient size (includes targeted exams where dose is matched to clinical indication); or iterative reconstruction. COMPARISON: CT cervical spin wo con* [id number] 01/28/2023 4:04 PM RADIATION DOSE METRICS: Total DLP (mGy-cm): 247.1 FINDINGS: Bones: No acute fracture. Normal alignment. Diffuse osteopenia. Degenerative changes in the atlantodental joint. Small central disc protrusion causing mild spinal stenosis at C2-C3 and C3-C4 levels. Degenerative changes in uncovertebral and facet joints contributing to foraminal stenosis (mild bilateral at C3-C4, moderate bilateral at C4-C5, moderate right at C5-C6 level). Lungs: There is moderate centrilobular emphysema. Soft tissues: Unremarkable. CT/CT cervical spin wo con* [id number] IMPRESSION: No acute fracture.
--- NOTE | 2024-09-10 10:00 | CTR_ITS ---
PROCEDURE INFORMATION: Exam: CT Head Without Contrast Exam date and time: 09/10/2024 10:22 AM Age: 78 years old Clinical indication: Injury or trauma; Blunt trauma (contusions or hematomas); Injury details: PT was asleep on couch this am. Woke up to a rude awaken. PT had rolled off couch and face planted on ground. Hematoma to RT frontal TECHNIQUE: Imaging protocol: Computed tomography of the head without contrast. Radiation optimization: All CT scans at this facility use at least one of these dose optimization techniques: automated exposure control; mA and/or kV adjustment per patient size (includes targeted exams where dose is matched to clinical indication); or iterative reconstruction. COMPARISON: CT head wo con* [id number] 02/03/2023 8:35 PM RADIATION DOSE METRICS: Total DLP (mGy-cm): 1072.64 FINDINGS: Brain: No acute intracranial hemorrhage. No edema. No mass effect. There are ill-defined patchy extensive hypodense areas in the bilateral periventricular white matter suggestive of chronic small vessel ischemic changes. 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 There is small old infarction in the left cerebellum. Cerebral ventricles: No ventriculomegaly. Paranasal sinuses: Visualized sinuses are unremarkable. No fluid levels. Mastoid air cells: No mastoid effusion. Bones: Unremarkable. No acute fracture. Soft tissues: Large soft tissue hematoma in the right forehead with maximal thickness of 1.6 cm and the width of about [address]/CT head wo con* [id number] IMPRESSION: No CT evidence of acute intracranial hemorrhage, mass or acute infarction. No acute skull fracture. Large soft tissue hematoma in the right forehead.
[2024-09-10 10:16] LABS: Eosinophils # 0.2 10^3/uL (0.0-0.8); Eosinophils % 5.2 %; Hematocrit 41.2 % (36-47); Lymphocytes % 33.6 %; Mean Corpuscular HGB Conc 31.8 g/dL (30-55); Mean Corpuscular Hemoglobin 31.5 pg (27-33); Mean Platelet Volume 9.9 fL (7.4-10.4); Monocytes # 0.3 10^3/uL (0.2-0.9); Monocytes % 10.4 %; Neutrophils # 1.43 10^3/uL (1.8-7.7); Neutrophils % 49.5 %; Nucleated Red Blood Cells % 0 %; Platelet Count 148 10^3/cmm (157-399); Red Blood Count 4.16 10^6/uL (3.85-5.65); Red Cell Distribution Width 13.1 % (12.1-15.1); White Blood Count 2.89 10^3/uL (3.29-11.43)
[2024-09-10 10:31] LABS: Alanine Aminotransferase 8 U/L (0-33); Albumin Level 4.2 g/dL (3.5-5.2); Alkaline Phosphatase 131 U/L (35-105); Anion Gap 15.5 (5-19); Aspartate Amino Transferase 14 U/L (0-32); Blood Urea Nitrogen 23 mg/dL (8-23); Calcium 9.8 mg/dL (8.5-10.5); Carbon Dioxide 24 mmol/L (22-29); Chloride 106 mmol/L (98-107); Creatinine Clr Calc Pharmacy 24.0076; Globulin 2.6 g/dL (1.3-4.6); Glucose 92 mg/dL (65-115); Osmolality Calculated 295 mOsm/kg (285-295); Potassium 4.5 mmol/L (3.5-5.1); Sodium 141 mmol/L (136-145); Total Bilirubin 0.5 mg/dL (0.15-1.2); Total Protein 6.8 g/dL (6.6-8.7)
--- NOTE | 2024-09-10 11:10 | ED_ITS ---
HPI - Head Injury 2 General: Chief complaint: Head Injury Stated complaint: Fall Time Seen by Provider: 09/10/24 09:55 History of Present Illness: 78-year-old female presents emergency de partment chief complaint of falling out of her couch onto the floor concrete floor patient does not recall the fall she is on blood thinners including Plavix patient presents to ER with her son present chief complaint of neck pain as well as right-sided facial pain around the right eye patient reports prior to the fall she did not did not report any chest pain shortness of breath or palpitations. Patient reports moderate facial pain but no headache .She reports no other associated symptoms or injuries. Associated symptoms: Deny nausea or vomiting Related Data Home Medications Medication Instructions Recorded Confirmed fluticasone propionate 50 1 spray intranasal DAILY@07/26/22 09/10/24 mcg/actuation nasal spray,suspension (Flonase Allergy Relief) multivitamin 1 tab PO DAILY@01/23/23 09/10/24 potassium chloride 10 mEq 10 meq PO DAILY@02/03/23 09/10/24 tablet,extended release (Klor-Con) atorvastatin 40 mg tablet 40 mg PO BEDTIME@03/02/23 09/10/24 clopidogrel 75 mg tablet 75 mg PO QAM 03/02/23 09/10/24 pantoprazole 40 mg tablet,delayed 40 mg PO DAILY@03/02/23 09/10/24 release escitalopram oxalate 5 mg tablet 5 mg PO QAM 01/18/24 09/10/24 metoprolol tartrate 50 mg tablet 50 mg PO BID 01/18/24 09/10/24 acetaminophen 325 mg tablet 650 mg PO QID PRN Pain 09/10/24 09/10/24 ascorbic acid (vitamin C) 500 mg 250 mg PO QAM 09/10/24 09/10/24 tablet (Vitamin C) ferrous gluconate 324 mg (38 mg 324 mg PO DAILY 09/10/24 09/10/24 iron) tablet furosemide 20 mg tablet (Lasix) 20 mg PO QAM 09/10/24 09/10/24 Previous Rx's Medication Instructions Recorded nitroglycerin 0.4 mg sublingual 0.4 mg sublingual Q5M PRN chest 10/20/22 tablet pain #25 tabs sacubitril 49 mg-valsartan 51 mg 1 tab PO BID #90 tabs 05/10/24 tablet albuterol sulfate 90 mcg/actuation 2 inh inhalation Q4H PRN shortness 05/27/24 aerosol inhaler of breath or wheezing #6.7 grams Allergies Allergy/AdvReac Type Severity Reaction Status Date / Time meperidine [From Demerol] Allergy Unknown Unknown Verified 05/26/24 22:26 morphine Allergy Unknown Unknown Verified 05/26/24 22:26 Review of Systems 2 General: Reports: 10 or more systems reviewed and unremarkable except in HPI and below Narrative: Swelling and pain appreciated to the face. Const: Denies: fever(s), chills, fatigue or malaise Eyes: Denies: change in vision or blurry vision ENMT: Denies: throat pain, uvular edema, hoarseness, mouth pain, swelling of lips/tongue or oral sores Card: Denies: chest pain or palpitations Resp: Denies: dyspnea or productive cough GI: Denies: abdominal pain, nausea or vomiting : Denies: flank pain Musc: Denies: extremity pain or extremity swelling Skin/Breast: Denies: rash or pruritus Neuro: Denies: headache(s) Psych: Denies: anxiety or depression Elia/Lymph: Denies: easy bleeding All/Imm: Denies: urticaria, throat swelling or facial swelling PFSH ED 2 PFSH: Medical History Systolic CHF Acute CHF (congestive heart failure) GI bleed Upper gastrointestinal hemorrhage Acute anemia Elevated troponin Hip pain Heart failure Acute exacerbation of chronic obstructive pulmonary disease Dehydration Fall Respiratory failure with hypoxia and hypercapnia Lactic acidosis Cardiogenic shock UTI (urinary tract infection) Cystitis Heart failure, systolic, with acute decompensation CAD (coronary artery disease) COPD (chronic obstructive pulmonary disease) Tobacco abuse Peripheral arterial disease Dyslipidemia Essential hypertension Cardiomyopathy Hypoxia Acute systolic CHF (congestive heart failure) NSTEMI (non-ST elevated myocardial infarction) Elevated troponin Elevated troponin I level Emphysema lung Bacteriuria Pyuria Extrinsic ureteral obstruction Urinary incontinence Retained ureteral stent Surgical History H/O total hip arthroplasty right H/O shoulder surgery H/O arthroscopic knee surgery bilateral History of colon surgery H/O: H/O: hysterectomy H/O oral surgery Family History Mother , at age 79 Hypertension Peripheral artery disease Diabetes Father , at age 47 Cancer pancreatic and lung Social History Smoking and tobacco/nicotine status: current every day tobacco/nicotine user (0.5 ppd or less) Physical Exam 2 Const: COMMON NORMALS: no acute distress, patient oriented x3 and healthy appearing HENMT: COMMON NORMALS: normocephalic and atraumatic HEAD & SCALP: n ormocephalic and atraumatic THROAT: no uvular edema OTHER: Moderate swelling appreciated around the right eye extraocular muscle intact bilaterally large hematoma present above the right eye right forehead no obvious step-offs or crepitus noted Eye: COMMON NORMALS: Equal, round and reactive pupils present and EOMs intact bilaterally PUPIL: Yes Equal, round and reactive pupils present Neck/C-Spine: COMMON NORMALS: full ROM, supple and no JVD OTHER: Moderate bilateral paravertebral pain noted to the cervical spine no obvious step-offs crepitus or ecchymosis appreciated. Lymph: LYMPHATIC: no lymphadenopathy noted Chest: COMMONS NORMALS: normal inspection of the chest and normal palpation of entire chest wall Resp: COMMON NORMALS: normal respiratory effort, No retractions and clear to auscultation bilaterally EFFORT & INSPECTION: Yes able to speak in complete sentences and Yes symmetric chest movement AUSCULTATION: clear to auscultation bilaterally Cardio: COMMON NORMALS: no JVD, regular rate and regular rhythm RATE: r egular rate RHYTHM: regular rhythm GI: COMMON NORMALS: Normal to inspection, nondistended, normoactive bowel sounds present, Soft to palpation and non-tender INSPECTION: Yes normal to inspection PALPATION: Yes Soft to palpation : COMMON NORMALS: Yes no CVA tenderness BLADDER/KIDNEY EXAM: Yes no CVA tenderness Back/Pelvis: COMMON NORMALS: no CVA tenderness Extremity: COMMON NORMALS: normal to inspection and full ROM Neuro: COMMON NORMALS: patient oriented x3, CN's II-XII intact bilaterally, moves all extremities and no focal motor deficits Psych: COMMON NORMALS: mental status grossly normal, Normal thought process present, cooperative and normal affect THOUGHT PROCESS: Normal thought process present Skin: COMMON NORMALS: no rashes or lesions noted GENERAL SKIN EXAM: no rashes or lesions noted Course 2 Vital Signs: Vital signs: Vital Signs Temperature 97.9 F 09/10/24 09:49 Pulse Rate 69 09/10/24 09:49 Respiratory Rate 17 09/10/24 09:49 Blood Pressure 178/54 09/10/24 09:49 Pulse Oximetry 99 09/10/24 09:49 Oxygen Delivery Me thod Room Air 09/10/24 09:49 MDM - Head Injury Medcial Decision Making Due to patient's continued condition CT imaging of the head and C-spine will be obtained patient offered Tylenol that she has declined at this time we will continue to follow. CAT scan imaging came back unremarkable does reveal evidence of spinal stenosis as well as bulging disc but no acute process was noted. The patient was found have a large soft tissue hematoma in the right forehead patient is stable for discharge home advised the patient use [id number] Tylenol for breakthrough pain control as well as covered ice pack to the affected area advised for the patient and son to further follow-up with primary care in 3 to 5 days and was to return the interim if any of her symptoms persist or worse. Lab Data 09/10/24 10:08 09/10/24 10:08 Radiology Impressions Cervical Spine CT 09/10/24 09:59 IMPRESSION: No acute fracture. Head CT 09/10/24 10:00 IMPRESSION: No CT evidence of acute intracranial hemorrhage, mass or acute infarction. No acute skull fracture. Large soft tissue hematoma in the right forehead. Laboratory Results WBC 2.89 10^3/uL (3.29-11.43) L 09/10/24 10:08 RBC 4.16 10^6/uL (3.85-5.65) 09/10/24 10:08 Hgb 13.10 g/dL (11.27-16.99) 09/10/24 10:08 Hct 41.2 % (36-47) 09/10/24 10:08 MCV 99.0 fl (85-98) H 09/10/24 10:08 MCH 31.5 pg (27-33) 09/10/24 10:08 MCHC 31.8 g/dL (30-55) 09/10/24 10:08 RDW 13.1 % (12.1-15.1) 09/10/24 10:08 Plt Count 148 10^3/cmm (157-399) L 09/10/24 10:08 MPV 9.9 fL (7.4-10.4) 09/10/24 10:08 Neut % (Auto) 49.5 % 09/10/24 10:08 Lymph % (Auto) 33.6 % 09/10/24 10:08 Pratt % (Auto) 10.4 % 09/10/24 10:08 Eos % (Auto) 5.2 % 09/10/24 10:08 Baso % (Auto) 1.0 % 09/10/24 10:08 Neut # (Auto) 1.43 10^3/uL (1.8-7.7) L 09/10/24 10:08 Lymph # (Auto) 1.0 10^3/uL (0.8-4.8) 09/10/24 10:08 Pratt # (Auto) 0.3 10^3/uL (0.2-0.9) 09/10/24 10:08 Eos # (Auto) 0.2 10^3/uL (0.0-0.8) 09/10/24 10:08 Baso # (Auto) 0.0 10^3/uL (0.0-0.1) 09/10/24 10:08 Nucleated RBC % (auto) 0 % 09/10/24 10:08 Nucleated RBCs # 0.0 /100WBC 09/10/24 10:08 Sodium 141 mmol/L (136-145) 09/10/24 10:08 Potassium 4.5 mmol/L (3.5-5.1) 09/10/24 10:08 Chloride 106 mmol/L (98-107) 09/10/24 10:08 Carbon Dioxide 24 mmol/L (22-29) 09/10/24 10:08 Anion Gap 15.5 (5-19) 09/10/24 10:08 BUN 23 mg/dL (8-23) 09/10/24 10:08 Creatinine 1.4 mg/dL (0.5-0.9) H 09/10/24 10:08 GFR Calculation Not Reportable 09/10/24 10:08 Glucose 92 mg/dL (65-115) 09/10/24 10:08 Calculated Osmolality 295 mOsm/kg (285-295) 09/10/24 10:08 Calcium 9.8 mg/dL (8.5-10.5) 09/10/24 10:08 Total Bilirubin 0.5 mg/dL (0.15-1.2) 09/10/24 10:08 AST 14 U/L (0-32) 09/10/24 10:08 ALT 8 U/L (0-33) 09/10/24 10:08 Alkaline Phosphatase 131 U/L (35-105) H 09/10/24 10:08 Total Protein 6.8 g/dL (6.6-8.7) 09/10/24 10:08 Albumin 4.2 g/dL (3.5-5.2) 09/10/24 10:08 Globulin 2.6 g/dL (1.3-4.6) 09/10/24 10:08 All radiology interpretation(s) finalized by discharge Discharge Plan Discharge Patient Disposition: Home Clinical Impression: Fall, Chronic anticoagulation, Contusion of scalp Condition: Stable Prescriptions: No Action nitroglycerin 0.4 mg tablet, sublingual 0.4 mg sublingual Q5M PRN (Reason: chest pain) Qty: 25 3RF Rx Instructions: do not exceed 3 doses per episode fluticasone propionate [Flonase Allergy Relief] 50 mcg/actuation spray,suspension 1 spray intranasal DAILY@07 Rx Instructions: administer into each nostril sacubitril-valsartan 49-51 mg tablet 1 tab PO BID Qty: 90 3RF multivitamin Tablet 1 tab PO DAILY@07 potassium chloride [Klor-Con 10] 10 mEq Tablet Extended Release 10 meq PO DAILY@07 atorvastatin 40 mg tablet 40 mg PO BEDTIME@19 clopidogrel 75 mg tablet 75 mg PO QAM pantoprazole 40 mg tablet,delayed release (DR/EC) 40 mg PO DAILY@07 albuterol sulfate 90 mcg/actuation HFA aerosol inhaler 2 inh INHALATION Q4H PRN (Reason: shortness of breath or wheezing) Qty: 6.7 1RF metoprolol tartrate 50 mg tablet 50 mg PO BID escitalopram oxalate 5 mg tablet 5 mg PO QAM acetaminophen 325 mg Tablet 650 mg PO QID PRN (Reason: Pain) ascorbic acid (vitamin C) [Vitamin C] 500 mg Tablet 250 mg PO QAM ferrous gluconate 324 mg (38 mg iron) tablet 324 mg PO DAILY furosemide [Lasix] 20 mg tablet 20 mg PO QAM Discharge Orders: Discharge ED (Routine); Ordered 09/10/24 Ordered By: Cm Gooden Referrals: Catalino Sanders MD [Primary Care Provider] - 1-3 days Discharge Diet: Usual diet Discharge Activity: Increase activity as tolerated Patient Instructions: Head Injury (ED), Hematoma (ED), Fall Prevention Activity Restrictions/Additional Instructions: Please further follow-up with your primary care doctor as needed in 3 to 5 days [id number] Tylenol per package instruction for increased pain did not enter discomfort covered ice packs to the affected area please return the interim if any of your symptoms persist or worse. Coding Level of Care Code ED Cash Management Associate for Isi Calhoun
[2024-09-10 12:00] VITALS: BP 167/94; PULSE 69; O2SAT 97
[2024-09-10 12:58] VITALS: BP 171/76; PULSE 67; O2SAT 98
== END 2024-09-10 13:00 | disposition home or self-care (01) ==
PROVIDERS: Family Medicine; Emergency Provider Emergency Medicine; PCP Family Medicine
DX: S00.03XA Contusion of scalp, initial encounter (principal); Z79.01 Long term (current) use of anticoagulants; Z79.02 Long term (current) use of antithrombotics/antiplatelets; F17.210 Nicotine dependence, cigarettes, uncomplicated; E78.5 Hyperlipidemia, unspecified; J44.9 Chronic obstructive pulmonary disease, unspecified; I25.10 Atherosclerotic heart disease of native coronary artery without angina pectoris; I11.0 Hypertensive heart disease with heart failure; I50.21 Acute systolic (congestive) heart failure; W19.XXXA Unspecified fall, initial encounter
CPT/HCPCS: 36415; 70450; 72125; 80053; 85025; 99284

== ENCOUNTER 2025-01-28 08:57 | Oncology outpatient (recurring) (ONCR) | payer MEDICARE, MEDICAID, SELFPAY | END 2025-02-08 23:59 | disposition home or self-care (01) | PROVIDERS: PCP Family Medicine; Visit Provider Internal Medicine Medical Oncology | DX: Z53.9 Procedure and treatment not carried out, unspecified reason (principal); D47.2 Monoclonal gammopathy; F17.210 Nicotine dependence, cigarettes, uncomplicated; R03.0 Elevated blood-pressure reading, without diagnosis of hypertension | CPT/HCPCS: 99205 ==

== ENCOUNTER 2025-04-26 15:50 | Emergency (ER) | payer OTHER, MEDICAID, SELFPAY ==
--- OUTSIDE RECORDS SUMMARY | 2025-04-26 15:59 | XMS_ITS | Clinical Summary ---
Author Organization [facility] Address [address] [place] [address] Care Team Providers Care End Worker Name Role Phone Unavailable Primary Care Provider Unavailabl e Social History Tobacco Use Types Packs/Day Years Used Date Smoking Tobacco: Never Assessed Comments Unknown Sex and Gender Information Value Date Recorded Sex Assigned at Not on file Legal Sex Female 7:24 AM CDT Gender Identity Not on file Sexual Orientation Not on file Plan of Treatment Health Maintenance Due Date Last Done Comments DTAP/TDAP/TD VACCINES (1 - Tdap) 1964 PNEUMOCOCCAL VACCINE 50+ YEARS (1 of 1 - PCV) 11/25/18 97 ZOSTER VACCINE (1 of 2) 1996 OSTEOPOROSIS SCREENING 11/26/2011 RSV VACCINE (60+ or ) (1 - 1-dose 75+ series) 2021 INFLUENZA VACCINE (#1) 2025
[2025-04-26 16:30] VITALS: BP 118/54; PULSE 81; RESP 17; TEMP 36.4; O2SAT 91; BMI 16.1
[2025-04-26 20:17] LABS: Glucose Urine UA Negative (Normal); Nitrate Urine Positive (Negative); Specific Gravity, Urine 1.012 (1.005-1.030)
--- NOTE | 2025-04-26 20:19 | CTR_ITS ---
PROCEDURE INFORMATION: Exam: CT Abdomen And Pelvis Without Contrast Exam date and time: 04/26/2025 8:39 PM Age: 79 years old Clinical indication: Abdominal pain; Generalized; Prior surgery; Surgery date: 6+ months; Surgery type: Ureteral stent. Hysterectomy. Casey. Csection. RT iliac/femoral stent. C/O abd pain with hematuria. RT ureteral stent in place. ; Additional info: Hematuria, stent TECHNIQUE: Imaging protocol: Computed tomography of the abdomen and pelvis without contrast. Radiation optimization: All CT scans at this facility use at least one of these dose optimization techniques: automated exposure control; mA and/or kV adjustment per patient size (includes targeted exams where dose is matched to clinical indication); or iterative reconstruction. COMPARISON: CT abdomen pelvis wo con [id number] 11/28/2023 9:07 AM RADIATION DOSE METRICS: Total DLP (mGy-cm): 275.43 FINDINGS: Lungs: There are findings of linear scarring in the lower lobes. Coronary artery calcifications demonstrated. Liver: Unremarkable. No mass. Gallbladder and biliary ducts: There are findings of cholelithiasis. Pancreas: Unremarkable. No ductal dilation. Spleen: Unremarkable. No splenomegaly. Adrenal glands: Normal. No mass. Kidneys and ureters: There is a right-sided nephroureteral stent in position. Right kidney is small and atrophic. There is no hydronephrosis. Stomach and bowel: Stomach collapsed limiting evaluation. Patient is status post bowel resection. There is thickening of the rectosigmoid colon which is not well-distended correlate to exclude infectious proctosigmoiditis. Appendix: No evidence of appendicitis. Intraperitoneal space: Unremarkable. No free air. No significant fluid collection. Vasculature: Unremarkable. No abdominal aortic aneurysm. Lymph nodes: Unremarkable. No enlarged lymph nodes. Urinary bladder: Urinary bladder shows no nodularity and is moderately distended Reproductive: Unremarkable as visualized. Bones/joints: Patient is status post right hip arthroplasty. There is generalized osteopenia. T11 compression fracture present, age indeterminate. Soft tissues: Unremarkable. CT/CT kidney stone [id number] IMPRESSION: Right-sided nephroureteral stent in position with atrophic right kidney Cholelithiasis Patient is status post bowel resection. Nonspecific decompressed appearance to the rectosigmoid colon infectious proctosigmoiditis could not be excluded further workup recommended. Compression fracture deformity T11
[2025-04-26 20:37] LABS: Hematocrit 38.5 % (36-47); Hemoglobin 12.30 g/dL (11.27-16.99); Mean Corpuscular HGB Conc 31.9 g/dL (30-55); Mean Corpuscular Hemoglobin 31.7 pg (27-33); Mean Corpuscular Volume 99.2 fl (85-98); Nucleated Red Blood Cells % 0 %; Platelet Count 143 10^3/cmm (157-399); Red Blood Count 3.88 10^6/uL (3.85-5.65); White Blood Count 3.59 10^3/uL (3.29-11.43)
[2025-04-26 20:43] LABS: Universal Test for UA Present (0)
[2025-04-26 20:44] LABS: Add Urine Microscopic? YES; UA Manual Slide Review YES; UA Slide Review UA Slide Review Perf
--- NOTE | 2025-04-26 20:49 | W.ED.FEMALGU ---
HPI - Female Genitourinary General: Chief complaint: Urogenital-Female Stated complaint: Peeing blood Time Seen by Provider: 04/26/25 20:09 History of Present Illness: Chief complaint blood in the urine. Patient has a stent in her ureter from surgical injury in the past and gets the stent exchanged every 6 months. They have been told by their urologist to expect it to show signs of infection anytime she has her urine checked. No fever. No flank pain. No abdominal pain. She knows she was having blood in her urine today so came to get checked out. She is not on blood thinner. No fall or trauma. Related Data Home Medications ?Medication ?Instructions ?Recorded ?Confirmed fluticasone propionate 50 1 spray intranasal DAILY@07/26/22 02/26/25 mcg/actuation nasal spray,suspension (Flonase Allergy Relief) multivitamin 1 tab PO DAILY@01/23/23 02/26/25 potassium chloride 10 mEq 10 meq PO DAILY@02/03/23 02/26/25 tablet,extended release (Klor-Con) atorvastatin 40 mg tablet 40 mg PO BEDTIME@03/02/23 02/26/25 clopidogrel 75 mg tablet 75 mg PO QAM 03/02/23 02/26/25 pantoprazole 40 mg tablet,delayed 40 mg PO DAILY@03/02/23 02/26/25 release escitalopram oxalate 5 mg tablet 5 mg PO QAM 01/18/24 02/26/25 metoprolol tartrate 50 mg tablet 50 mg PO BID 01/18/24 02/26/25 acetaminophen 325 mg tablet 650 mg PO QID PRN Pain 09/10/24 02/26/25 ascorbic acid (vitamin C) 500 mg 250 mg PO QAM 09/10/24 02/26/25 tablet (Vitamin C) ferrous gluconate 324 mg (38 mg 324 mg PO DAILY 09/10/24 02/26/25 iron) tablet furosemide 20 mg tablet (Lasix) 20 mg PO QAM 09/10/24 02/26/25 nitrofurantoin PO 01/28/25 02/26/25 monohydrate/macrocrystals 100 mg capsule Previous Rx's ?Medication ?Instructions ?Recorded nitroglycerin 0.4 mg sublingual 0.4 mg sublingual Q5M PRN chest 02/09/23 tablet pain #25 tabs albuterol sulfate 90 mcg/actuation 2 inh inhalation Q4H PRN shortness 05/27/24 aerosol inhaler of breath or wheezing #6.7 grams sacubitril 49 mg-valsartan 51 mg 1 tab PO BID #90 tabs 11/05/24 tablet cefdinir 300 mg capsule 300 mg PO DAILY 10 days #10 caps 04/26/25 Allergies Allergy/AdvReac Type Severity Reaction Status Date / Time meperidine (From Demerol) Allergy Unknown Unknown Verified 02/26/25 10:02 morphine Allergy Unknown Unknown Verified 02/26/25 10:02 [facility] ED PFS: Medical History (Updated 04/26/25 @ 20:55 by Ganesh Altamirano MD) Systolic CHF Acute CHF (congestive heart failure) GI bleed Upper gastrointestinal hemorrhage Acute anemia Elevated troponin Hip pain Heart failure Acute exacerbation of chronic obstructive pulmonary disease Dehydration Fall Respiratory failure with hypoxia and hypercapnia Lactic acidosis Cardiogenic shock UTI (urinary tract infection) Cystitis Heart failure, systolic, with acute decompensation CAD (coronary artery disease) COPD (chronic obstructive pulmonary disease) Tobacco abuse Peripheral arterial disease Dyslipidemia Essential hypertension Cardiomyopathy Hypoxia Acute systolic CHF (congestive heart failure) NSTEMI (non-ST elevated myocardial infarction) Elevated troponin Elevated troponin I level Emphysema lung Bacteriuria Pyuria Extrinsic ureteral obstruction Urinary incontinence Retained ureteral stent Surgical History H/O total hip arthroplasty right H/O shoulder surgery H/O arthroscopic knee surgery bilateral History of colon surgery H/O: H/O: hysterectomy H/O oral surgery Family History Mother , at age 79 Hypertension Peripheral artery disease Diabetes Father , at age 47 Cancer pancreatic and lung Social History Smoking and tobacco/nicotine status: current every day tobacco/nicotine user (0.5 ppd or less) Physical Exam Narrative: EXAM NARRATIVE: Patient is alert oriented no acute distress. Neck is supple. Normal conjunctiva. Moist mucous membranes. No facial droop. Speech is clear. Heart regular rhythm. Lung sounds are diminished bilaterally with mild bilateral expiratory wheezing but no accessory muscle use or retractions. Mild suprapubic tenderness. No guarding or rebound. No CVA tenderness. No calf tenderness or pitting edema. Extremities are warm appear well-perfused. Rash is warm and dry. Patient speech is clear. No ataxia. Course Vital Signs: Vital signs: Vital Signs Temperature 97.6 F 04/26/25 16:30 Pulse Rate 62 04/26/25 20:57 Respiratory Rate 17 04/26/25 20:57 Blood Pressure 140/50 04/26/25 20:57 Pulse Oximetry 100 04/26/25 20:57 Oxygen Delivery Me thod Room Air 04/26/25 20:57 MDM - Female Medical Decision Making Patient presents complaining of blood in her urine and has a known stent which was changed about 4 months ago and will be due to be changed in about 2 months. Certainly would be at risk for chronic colonization which would limit her evaluation of her urinalysis for infection. She denies any pain although she states she had a little bit of cramping suprapubic pain earlier and had some mild tenderness here. No CVA tenderness or flank pain. No fever vomiting or generalized weakness. Denies vomiting chest pain shortness of breath cough headache. Denies any black or bloody stools. CBC CMP urinalysis and CT abdomen pelvis ordered to evaluate for obstructive process or kidney stone or migration of the stent, other obstructive process among others. Patient's white count shows a white count of 3.59. Hemoglobin is 12.3. Platelets 143. Patient's urine shows blood white cells nitrate positive leukocyte positive but also epithelial cells and 4+ bacteria. Will treat empirically for UTI. Patient given Rocephin 1 g IV and urine culture ordered. Patient afebrile and nontoxic-appearing if CT does not show significant abnormality reasonable to continue outpatient management. I advised risk of obstruction risk of worsening in signs symptoms of worsening to watch and return for and outpatient follow-up. Advised risk of resistant organism. Advised follow-up with her urologist. CT shows stent in place. There is comment on nonspecific decompressed rectosigmoid colon but infectious cause of be unlikely by history. Patient creatinine is not significant elevated. Will discharge patient home on Omnicef. Patient agrees with plan after informed discussion. Lab Data 04/26/25 20:25 04/26/25 20:25 Radiology Impressions Abdomen/Pelvis CT 04/26/25 20:19 IMPRESSION: Right-sided nephroureteral stent in position with atrophic right kidney Cholelithiasis Patient is status post bowel resection. Nonspecific decompressed appearance to the rectosigmoid colon infectious proctosigmoiditis could not be excluded further workup recommended. Compression fracture deformity T11 Laboratory Results WBC 3.59 10^3/uL (3.29-11.43) 04/26/25 20:25 RBC 3.88 10^6/uL (3.85-5.65) 04/26/25 20:25 Hgb 12.30 g/dL (11.27-16.99) 04/26/25 20:25 Hct 38.5 % (36-47) 04/26/25 20: MCV 99.2 fl (85-98) H 04/26/25: MCH 31.7 pg (27-33) 04/26/25: MCHC 31.9 g/dL (30-55) 04/26/25 20: RDW 13.2 % (12.1-15.1) 04/26/25: Plt Count 143 10^3/cmm (157-399) L 04/26/25: MPV 10.0 fL (7.4-10.4) 04/26/25 20: Neut % (Auto) 61.6 % 04/26/25: Lymph % (Auto) 26.7 % 04/26/25: Lamb % (Auto) 8.1 % 04/26/25: Eos % (Auto) 2.5 % 04/26/25: Baso % (Auto) 0.8 % 04/26/25: Neut # (Auto) 2.21 10^3/uL (1.8-7.7) 04/26/25:25 Lymph # (Auto) 1.0 10^3/uL (0.8-4.8) 04/26/25:25 Lamb # (Auto) 0.3 10^3/uL (0.2-0.9) 04/26/25 20:25 Eos # (Auto) 0.1 10^3/uL (0.0-0.8) 04/26/25: Baso # (Auto) 0.0 10^3/uL (0.0-0.1) 04/26/25 20:25 Nucleated RBC % (auto) 0 % 04/26/25 20: Nucleated RBCs # 0.0 /100WBC 04/26/25 20:25 Sodium 141 mmol/L (136-145) 04/26/25 20:25 Potassium 4.5 mmol/L (3.5-5.1) 04/26/25 20:25 Chloride 106 mmol/L (98-107) 04/26/25 20: Carbon Dioxide 23 mmol/L (22-29) 04/26/25 20:25 Anion Gap 16.5 (5-19) 04/26/25 20:25 BUN 26 mg/dL (8-23) H 04/26/25 20:25 Creatinine 1.2 mg/dL (0.5-0.9) H 04/26/25 20:25 GFR Calculation Not Reportable 04/26/25: Glucose 87 mg/dL (65-115) 04/26/25 20:25 Calculated Osmolality 296 mOsm/kg (285-295) H 04/26/25 20:25 Calcium 9.4 mg/dL (8.5-10.5) 04/26/25:25 Total Bilirubin 0.8 mg/dL (0.15-1.2) 04/26/25 20: AST 32 U/L (0-32) 04/26/25: ALT 24 U/L (0-33) 04/26/25 20:25 Alkaline Phosphatase 108 U/L (35-105) H 04/26/25 20:25 C-Reactive Protein 44.1 mg/L (0.0-4.9) H 04/26/25 20:25 Total Protein 6.9 g/dL (6.6-8.7) 04/26/25 20: Albumin 4.3 g/dL (3.5-5.2) 04/26/25: Globulin 2.6 g/dL (1.3-4.6) 04/26/25 20: Lipase 22 U/L (13-60) 04/26/25 20:25 Urine Color Red (Yellow) A 04/26/25 20:00 Urine Appearance Turbid (CLEAR) A 04/26/25 20:00 Urine pH 5.5 (5-7) 04/26/25 20:00 Ur Specific [place] 1.012 (1.005-1.030) 04/26/25 20:00 Urine Protein 2+ (Negative) A 04/26/25 20:00 Urine Glucose (UA) Negative (Normal) 04/26/25 20:00 Urine Ketones Negative (Negative) 04/26/25 20:00 Urine Blood 3+ (Negative) A 04/26/25 20:00 Urine Nitrate Positive (Negative) A 04/26/25 20:00 Urine Bilirubin 1+ (Negative) H 04/26/25 20:00 Urine Urobilinogen 0.2 mg/dL (Negative) 04/26/25 20:00 Ur Leukocyte Esterase 3+ (Negative) A 04/26/25 20:00 Urine RBC Too numerous to cnt /hpf (0-2) H 04/26/25 20:00 Urine WBC >100 /hpf (0-5) H 04/26/25 20:00 Ur Squamous Epith Cells 21-50 /hpf (0-5) H 04/26/25 20:00 Amorphous Sediment Not Reportable 04/26/25 20:00 Urine Bacteria 4+ /hpf (NONE) H 04/26/25 20:00 All radiology interpretation(s) finalized by discharge Discharge Plan Discharge Patient Disposition: Home Clinical Impression: Acute hemorrhagic cystitis Condition: Stable Prescriptions: New cefdinir 300 mg capsule 300 mg PO DAILY 10 Days Qty: 10 0RF No Action nitroglycerin 0.4 mg tablet, sublingual 0.4 mg sublingual Q5M PRN (Reason: chest pain) Qty: 25 3RF Rx Instructions: do not exceed 3 doses per episode fluticasone propionate [Flonase Allergy Relief] 50 mcg/actuation spray,suspension 1 spray intranasal DAILY@07 Rx Instructions: administer into each nostril nitrofurantoin monohyd/m-cryst 100 mg capsule PO sacubitril-valsartan 49-51 mg tablet 1 tab PO BID Qty: 90 3RF multivitamin Tablet 1 tab PO DAILY@07 potassium chloride [Klor-Con 10] 10 mEq Tablet Extended Release 10 meq PO DAILY@07 atorvastatin 40 mg tablet 40 mg PO BEDTIME@19 clopidogrel 75 mg tablet 75 mg PO QAM pantoprazole 40 mg tablet,delayed release (DR/EC) 40 mg PO DAILY@07 albuterol sulfate 90 mcg/actuation HFA aerosol inhaler 2 inh INHALATION Q4H PRN (Reason: shortness of breath or wheezing) Qty: 6.7 1RF metoprolol tartrate 50 mg tablet 50 mg PO BID escitalopram oxalate 5 mg tablet 5 mg PO QAM acetaminophen 325 mg Tablet 650 mg PO QID PRN (Reason: Pain) ascorbic acid (vitamin C) [Vitamin C] 500 mg Tablet 250 mg PO QAM ferrous gluconate 324 mg (38 mg iron) tablet 324 mg PO DAILY furosemide [Lasix] 20 mg tablet 20 mg PO QAM Discharge Orders: Discharge ED (Routine); Ordered 04/26/25 Ordered By: Ganesh Altamirano Referrals: Catalino Sanders MD [Primary Care Provider, Family Practice] Patient Instructions: Opioid Safety, Pain Management, Patient Portal & Shania Instructions Activity Restrictions/Additional Instructions: Follow-up on your test results with your doctor. There is always a risk of resistant organism requiring different antibiotic. Please come back if fever, vomiting, unable to urinate, abdominal pain, flank pain, weakness, excessive blood loss, getting worse instead of better, any concerns. Make sure to drink plenty of fluid. Please call your urologist Monday morning for prompt follow-up this week. Print Language: Faroese Coding Level of Care Code ED Thermostatic Controls Supervisor for Isi Calhoun
[2025-04-26] MEDS: cefTRIAXone 1,000 mg SDV 1000 MG IVP (20:56)
[2025-04-26 20:57] VITALS: BP 140/50; PULSE 62; RESP 17; O2SAT 100
[2025-04-26 21:21] LABS: Alanine Aminotransferase 24 U/L (0-33); Albumin Level 4.3 g/dL (3.5-5.2); Alkaline Phosphatase 108 U/L (35-105); Anion Gap 16.5 (5-19); Aspartate Amino Transferase 32 U/L (0-32); Blood Urea Nitrogen 26 mg/dL (8-23); Calcium 9.4 mg/dL (8.5-10.5); Carbon Dioxide 23 mmol/L (22-29); Chloride 106 mmol/L (98-107); Creatinine Clr Calc Pharmacy 23.6278; Globulin 2.6 g/dL (1.3-4.6); Glucose 87 mg/dL (65-115); Lipase 22 U/L (13-60); Osmolality Calculated 296 mOsm/kg (285-295); Potassium 4.5 mmol/L (3.5-5.1); Sodium 141 mmol/L (136-145); Total Protein 6.9 g/dL (6.6-8.7)
[2025-04-26 22:54] VITALS: BP 124/64; PULSE 81; RESP 18; O2SAT 98
== END 2025-04-26 22:56 | disposition home or self-care (01) ==
PROVIDERS: Emergency Medicine; Emergency Provider Emergency Medicine; PCP Family Medicine
DX: N30.01 Acute cystitis with hematuria (principal); Z79.02 Long term (current) use of antithrombotics/antiplatelets; F17.210 Nicotine dependence, cigarettes, uncomplicated; I25.10 Atherosclerotic heart disease of native coronary artery without angina pectoris; J44.9 Chronic obstructive pulmonary disease, unspecified; E78.5 Hyperlipidemia, unspecified; I11.0 Hypertensive heart disease with heart failure; I50.20 Unspecified systolic (congestive) heart failure
CPT/HCPCS: 74176; 80053; 81001; 83690; 85025; 86140; 87077; 87086; 87186; 96374; 99285; J0696

== ENCOUNTER 2025-05-05 14:24 | Emergency (ER) | payer OTHER, MEDICAID, SELFPAY ==
[2025-05-05 14:26] VITALS: BP 162/71; PULSE 56; RESP 20; TEMP 36.3; O2SAT 100; BMI 17.2
--- OUTSIDE RECORDS SUMMARY | 2025-05-05 14:33 | XMS_ITS | Clinical Summary ---
Author Organization [facility] Address [address] [place] [address] Care Team Providers Care Trade Show Coordinator Name Role Phone Unavailable Primary Care Provider [...]
--- NOTE | 2025-05-05 14:43 | W.ED.FEMALGU ---
HPI - Female Genitourinary General: Chief complaint: Urogenital-Female Stated complaint: heriberto monsalve sent, blood in stool and urine Time Seen by Provider: 05/05/25 14:38 Source: patient Mode of arrival: ambulatory Limitations: no limitations History of Present Illness: Patient is a 79-year-old female who presents to ED today with a complaint of hematuria and bright red blood per rectum. Patient states she was seen here about a week ago due to hematuria. She does have a known ureter stent from a surgical injury in the past and states she gets her stent replaced every 6 months from her urology office at [facility] in [place] (Dr. Cabrera). States she is scheduled to get it changed in approximately 2 months. On her visit here last week, she did have CT imaging performed which ruled out obstructive uropathy or stent migration. She did have a culture performed on her urine analysis which showed E. coli-pansensitive. Patient was placed on cefdinir and states she has a few days left of this medication. States this morning after a bowel movement, she noticed bright red blood throughout the toilet bowl and states she believes this came from her rectum. She later had an episode of urinary incontinence that also contained bright red blood. Patient does have a history of colon resection and precancerous polyps found on colonoscopy. Patient is not complaining of abdominal or back pain. No fevers. She is an everyday smoker. Has history of radial hysterectomy and bilateral salpingectomy and oophorectomy due to cancer-did receive pelvic radiation. MD elicited complaint: other (hematuria) Pertinent past history: other (ureter stent) Onset (ago): day(s) Severity: mild Vaginal discharge: none Vaginal bleeding: none Urinary symptoms: Hematuria Relieving factors: none Associated symptoms: Deny abdominal pain, headache(s) or nausea Treatment prior to arrival: none Sexual activity: No Patient : No Related Data Home Medications ?Medication ?Instructions ?Recorded ?Confirmed fluticasone propionate 50 1 spray intranasal DAILY@07/26/22 02/26/25 mcg/actuation nasal spray,suspension (Flonase Allergy Relief) multivitamin 1 tab PO DAILY@01/23/23 02/26/25 potassium chloride 10 mEq 10 meq PO DAILY@02/03/23 02/26/25 tablet,extended release (Klor-Con) atorvastatin 40 mg tablet 40 mg PO BEDTIME@03/02/23 02/26/25 clopidogrel 75 mg tablet 75 mg PO QAM 03/02/23 02/26/25 pantoprazole 40 mg tablet,delayed 40 mg PO DAILY@03/02/23 02/26/25 release escitalopram oxalate 5 mg tablet 5 mg PO QAM 01/18/24 02/26/25 metoprolol tartrate 50 mg tablet 50 mg PO BID 01/18/24 02/26/25 acetaminophen 325 mg tablet 650 mg PO QID PRN Pain 09/10/24 02/26/25 ascorbic acid (vitamin C) 500 mg 250 mg PO QAM 09/10/24 02/26/25 tablet (Vitamin C) ferrous gluconate 324 mg (38 mg 324 mg PO DAILY 09/10/24 02/26/25 iron) tablet furosemide 20 mg tablet (Lasix) 20 mg PO QAM 09/10/24 02/26/25 nitrofurantoin PO 01/28/25 02/26/25 monohydrate/macrocrystals 100 mg capsule Previous Rx's ?Medication ?Instructions ?Recorded nitroglycerin 0.4 mg sublingual 0.4 mg sublingual Q5M PRN chest 10/20/22 tablet pain #25 tabs albuterol sulfate 90 mcg/actuation 2 inh inhalation Q4H PRN shortness 05/27/24 aerosol inhaler of breath or wheezing #6.7 grams sacubitril 49 mg-valsartan 51 mg 1 tab PO BID #90 tabs 11/05/24 tablet cefdinir 300 mg capsule 300 mg PO DAILY 10 days #10 caps 04/26/25 Allergies Allergy/AdvReac Type Severity Reaction Status Date / Time meperidine (From Demerol) Allergy Unknown Unknown Verified 05/05/25 14:36 morphine Allergy Unknown Unknown Verified 05/05/25 14:36 Review of Systems Const: Denies: fever(s), chills, body aches, fatigue or malaise Card: Denies: chest pain Resp: Denies: dyspnea GI: Reports: hematochezia; Denies: abdominal pain, nausea, vomiting, GI cramping, change in bowel habits or melena : Reports: hematuria; Denies: flank pain, difficulty voiding, dysuria, urinary frequency, urinary urgency, urinary hesitancy, vaginal bleeding or pelvic pain Musc: Denies: neck pain, back pain, extremity pain or joint swelling Skin/Breast: Denies: rash Neuro: Denies: headache(s), numbness in extremities, weakness in extremities or sensory changes PFSH ED PFSH: Medical History Systolic CHF Acute CHF (congestive heart failure) GI bleed Upper gastrointestinal hemorrhage Acute anemia Elevated troponin Hip pain Heart failure Acute exacerbation of chronic obstructive pulmonary disease Dehydration Fall Respiratory failure with hypoxia and hypercapnia Lactic acidosis Cardiogenic shock UTI (urinary tract infection) Cystitis Heart failure, systolic, with acute decompensation CAD (coronary artery disease) COPD (chronic obstructive pulmonary disease) Tobacco abuse Peripheral arterial disease Dyslipidemia Essential hypertension Cardiomyopathy Hypoxia Acute systolic CHF (congestive heart failure) NSTEMI (non-ST elevated myocardial infarction) Elevated troponin Elevated troponin I level Emphysema lung Bacteriuria Pyuria Extrinsic ureteral obstruction Urinary incontinence Retained ureteral stent Surgical History H/O total hip arthroplasty right H/O shoulder surgery H/O arthroscopic knee surgery bilateral History of colon surgery H/O: H/O: hysterectomy H/O oral surgery Family History Mother , at age 79 Hypertension Peripheral artery disease Diabetes Father , at age 47 Cancer pancreatic and lung Social History Smoking and tobacco/nicotine status: current every day tobacco/nicotine user (0.5 ppd or less) Physical Exam Const: COMMON NORMALS: no acute distress, patient oriented x3, no limitations and alert GENERAL APPEARANCE: cooperative and frail appearing NUTRITIONAL APPEARANCE: thin ORIENTATION/CONSCIOUSNESS: Yes awake, Yes oriented to person, Yes oriented to place and Yes oriented to time HENMT: COMMON NORMALS: normocephalic and atraumatic HEAD & SCALP: normal to inspection, normocephalic and atraumatic Resp: COMMON NORMALS: normal respiratory effort and clear to auscultation bilaterally AUSCULTATION: clear to auscultation bilaterally Cardio: COMMON NORMALS: regular rate and regular rhythm RATE: regular rate RHYTHM: regular rhythm GI: COMMON NORMALS: Normal to inspection, nondistended, normoactive bowel sounds present, Soft to palpation, non-tender, No hepatosplenomegaly present and no masses INSPECTION: Yes normal to inspection AUSCULTATION: Yes normoactive bowel sounds PALPATION: Yes Soft to palpation, No Guarding due to palpation present (GI), No Rigid due to palpation and Yes No hepatosplenomegaly present RECTAL EXAM: visual inspection normal and heme negative stool : COMMON NORMALS: Yes no CVA tenderness BLADDER/KIDNEY EXAM: Yes no CVA tenderness OTHER: visualized bright red blood to urethral meatus-in and out cath collected with gross hematuria no blood to vaginal vault visualized Back/Pelvis: COMMON NORMALS: no CVA tenderness Neuro: COMMON NORMALS: patient oriented x3 SENSORIUM/ORIENTATION: Yes alert, Yes oriented to person, Yes oriented to place and Yes oriented to time Course Vital Signs: Vital signs: Vital Signs Temperature 97.4 F L 05/05/25 14:26 Pulse Rate 58 L 05/05/25 15:30 Respiratory Rate 20 H 05/05/25 14:26 Blood Pressure 146/59 05/05/25 15:30 Pulse Oximetry 99 05/05/25 15:30 Oxygen Delivery Me thod Room Air 05/05/25 15:30 MDM - Female Medical Decision Making Patient is a 79-year-old female here for concerns of hematuria as well as concerns for bright red blood per rectum. Careful visual inspection was performed of urethral meatus, vaginal introitus, and rectum. I do visualize some blood coming from her urethral meatus. Hemoccult of her stool was performed and negative. At this time I think we are dealing with gross hematuria. She did have CT imaging approximately 8 days ago which did not show any evidence of obstructive uropathy or stent migration. She is not having any abdominal or flank pain. She has had no changes in her BUN/Cr. I do not feel there is any indication for repeat CT imaging at this time. She is not having any urinary retention due to clots. At this time patient will require cystoscopy. She does follow with Dr. Cabrera in [place]. Will have case management try to get her an appointment with their office. Remainder of her blood work is unremarkable. White count is normal. Her hemoglobin today is higher than it was on her last ED visit. UA grossly hematuric-will culture. Last urine analysis did show sensitivity to cephalosporins. She has a few days left of her Cefdinir which she should continue and finish. Return precautions discussed. Medical Records I reviewed the patient's medical records. Lab Data I reviewed the patient's lab results. 05/05/25 15:07 05/05/25 15:07 Laboratory Results WBC 3.65 10^3/uL (3.29-11.43) 05/05/25 15:07 RBC 3.97 10^6/uL (3.85-5.65) 05/05/25 15:07 Hgb 12.60 g/dL (11.27-16.99) 05/05/25 15:07 Hct 40.5 % (36-47) 05/05/25 15:07 MCV 102.0 fl (85-98) H 05/05/25 15:07 MCH 31.7 pg (27-33) 05/05/25 15:07 MCHC 31.1 g/dL (30-55) 05/05/25 15:07 RDW 13.2 % (12.1-15.1) 05/05/25 15:07 Plt Count 186 10^3/cmm (157-399) 05/05/25 15:07 MPV 9.5 fL (7.4-10.4) 05/05/25 15:07 Neut % (Auto) 52.3 % 05/05/25 15:07 Lymph % (Auto) 35.1 % 05/05/25 15:07 [place] % (Auto) 7.7 % 05/05/25 15:07 Eos % (Auto) 3.0 % 05/05/25 15:07 Baso % (Auto) 1.6 % 05/05/25 15:07 Neut # (Auto) 1.91 10^3/uL (1.8-7.7) 05/05/25 15:07 Lymph # (Auto) 1.3 10^3/uL (0.8-4.8) 05/05/25 15:07 [place] # (Auto) 0.3 10^3/uL (0.2-0.9) 05/05/25 15:07 Eos # (Auto) 0.1 10^3/uL (0.0-0.8) 05/05/25 15:07 Baso # (Auto) 0.1 10^3/uL (0.0-0.1) 05/05/25 15:07 Nucleated RBC % (auto) 0 % 05/05/25 15:07 Nucleated RBCs # 0.0 /100WBC 05/05/25 15:07 Sodium 141 mmol/L (136-145) 05/05/25 15:07 Potassium 4.7 mmol/L (3.5-5.1) 05/05/25 15:07 Chloride 107 mmol/L (98-107) 05/05/25 15:07 Carbon Dioxide 19 mmol/L (22-29) L 05/05/25 15:07 Anion Gap 19.7 (5-19) H 05/05/25 15:07 BUN 20 mg/dL (8-23) 05/05/25 15:07 Creatinine 1.0 mg/dL (0.5-0.9) H 05/05/25 15:07 GFR Calculation Not Reportable 05/05/25 15:07 Glucose 92 mg/dL (65-115) 05/05/25 15:07 Calculated Osmolality 294 mOsm/kg (285-295) 05/05/25 15:07 Calcium 9.6 mg/dL (8.5-10.5) 05/05/25 15:07 Total Bilirubin 0.3 mg/dL (0.15-1.2) 05/05/25 15:07 AST 25 U/L (0-32) 05/05/25 15:07 ALT 16 U/L (0-33) 05/05/25 15:07 Alkaline Phosphatase 115 U/L (35-105) H 05/05/25 15:07 Total Protein 7.1 g/dL (6.6-8.7) 05/05/25 15:07 Albumin 4.5 g/dL (3.5-5.2) 05/05/25 15:07 Globulin 2.6 g/dL (1.3-4.6) 05/05/25 15:07 Urine Color Red (Yellow) A 05/05/25 15:24 Urine Appearance Turbid (CLEAR) A 05/05/25 15:24 Urine pH Not Reportable 05/05/25 15:24 Ur Specific [place] Not Reportable 05/05/25 15:24 Urine Protein Not Reportable 05/05/25 15:24 Urine Glucose (UA) Not Reportable 05/05/25 15:24 Urine Ketones Not Reportable 05/05/25 15:24 Urine Blood Not Reportable 05/05/25 15:24 Urine Nitrate Not Reportable 05/05/25 15:24 Urine Bilirubin Not Reportable 05/05/25 15:24 Urine Urobilinogen Not Reportable 05/05/25 15:24 Ur Leukocyte Esterase Not Reportable 05/05/25 15:24 Urine RBC Too numerous to cnt /hpf (0-2) H 05/05/25 15:24 Urine WBC 15-25 /hpf (0-5) H 05/05/25 15:24 Ur Squamous Epith Cells 0-4 /hpf (0-5) H 05/05/25 15:24 Amorphous Sediment Not Reportable 05/05/25 15:24 Urine Bacteria 1+ /hpf (NONE) H 05/05/25 15:24 No radiology studies performed this visit Discharge Plan Discharge Patient Disposition: Home Clinical Impression: History of ureter stent, Gross hematuria Condition: Stable Prescriptions: No Action nitroglycerin 0.4 mg tablet, sublingual 0.4 mg sublingual Q5M PRN (Reason: chest pain) Qty: 25 3RF Rx Instructions: do not exceed 3 doses per episode fluticasone propionate [Flonase Allergy Relief] 50 mcg/actuation spray,suspension 1 spray intranasal DAILY@07 Rx Instructions: administer into each nostril nitrofurantoin monohyd/m-cryst 100 mg capsule PO sacubitril-valsartan 49-51 mg tablet 1 tab PO BID Qty: 90 3RF multivitamin Tablet 1 tab PO DAILY@07 potassium chloride [Klor-Con 10] 10 mEq Tablet Extended Release 10 meq PO DAILY@07 atorvastatin 40 mg tablet 40 mg PO BEDTIME@19 clopidogrel 75 mg tablet 75 mg PO QAM pantoprazole 40 mg tablet,delayed release (DR/EC) 40 mg PO DAILY@07 albuterol sulfate 90 mcg/actuation HFA aerosol inhaler 2 inh INHALATION Q4H PRN (Reason: shortness of breath or wheezing) Qty: 6.7 1RF metoprolol tartrate 50 mg tablet 50 mg PO BID escitalopram oxalate 5 mg tablet 5 mg PO QAM acetaminophen 325 mg Tablet 650 mg PO QID PRN (Reason: Pain) ascorbic acid (vitamin C) [Vitamin C] 500 mg Tablet 250 mg PO QAM ferrous gluconate 324 mg (38 mg iron) tablet 324 mg PO DAILY furosemide [Lasix] 20 mg tablet 20 mg PO QAM cefdinir 300 mg capsule 300 mg PO DAILY 10 Days Qty: 10 0RF Discharge Orders: Discharge ED (Routine); Ordered 05/05/25 Ordered By: Umu Trujillo Referrals: Catalino Sanders MD [Primary Care Provider, [facility]] Patient Instructions: Hematuria - Female, Patient Portal & Shania Instructions Activity Restrictions/Additional Instructions: As we discussed at this time we will have you continue your current antibiotic therapy. I would like you to contact Dr. Cabrera's office tomorrow to schedule a follow-up visit. We will also have our case management team work on this. You can continue to follow-up with your primary care provider as well in the meantime. You need to return to the emergency department for onset of severe abdominal pain or flank pain, inability to urinate, fevers, repetitive episodes of vomiting, generally feeling worse or unwell, or any other concerns you may have. Print Language: Macanese Coding Level of Care Code ED County Director for Isi Calhoun
[2025-05-05 15:12] VITALS: BP 151/81; PULSE 60; O2SAT 100
[2025-05-05 15:12] LABS: Hematocrit 40.5 % (36-47); Hemoglobin 12.60 g/dL (11.27-16.99); Mean Corpuscular HGB Conc 31.1 g/dL (30-55); Mean Corpuscular Hemoglobin 31.7 pg (27-33); Mean Corpuscular Volume 102.0 fl (85-98); Nucleated Red Blood Cells % 0 %; Platelet Count 186 10^3/cmm (157-399); Red Blood Count 3.97 10^6/uL (3.85-5.65); White Blood Count 3.65 10^3/uL (3.29-11.43)
[2025-05-05 15:30] VITALS: BP 146/59; PULSE 58; O2SAT 99
[2025-05-05 15:33] LABS: Alanine Aminotransferase 16 U/L (0-33); Albumin Level 4.5 g/dL (3.5-5.2); Alkaline Phosphatase 115 U/L (35-105); Blood Urea Nitrogen 20 mg/dL (8-23); Calcium 9.6 mg/dL (8.5-10.5); Carbon Dioxide 19 mmol/L (22-29); Chloride 107 mmol/L (98-107); Creatinine Clr Calc Pharmacy 31.6686; Globulin 2.6 g/dL (1.3-4.6); Glucose 92 mg/dL (65-115); Osmolality Calculated 294 mOsm/kg (285-295); Sodium 141 mmol/L (136-145); Total Protein 7.1 g/dL (6.6-8.7)
[2025-05-05 15:35] LABS: Anion Gap 19.7 (5-19); Aspartate Amino Transferase 25 U/L (0-32); Potassium 4.7 mmol/L (3.5-5.1)
[2025-05-05 15:51] LABS: Add Urine Microscopic? YES; UA Manual Slide Review YES
[2025-05-05 16:21] VITALS: BP 155/66; PULSE 54; O2SAT 98
== END 2025-05-05 16:22 | disposition home or self-care (01) ==
PROVIDERS: Emergency Provider Physician Assistant; PCP Family Medicine
DX: R31.0 Gross hematuria (principal); Z96.0 Presence of urogenital implants; Z79.02 Long term (current) use of antithrombotics/antiplatelets; F17.210 Nicotine dependence, cigarettes, uncomplicated; I25.10 Atherosclerotic heart disease of native coronary artery without angina pectoris; J44.9 Chronic obstructive pulmonary disease, unspecified; E78.5 Hyperlipidemia, unspecified; I11.0 Hypertensive heart disease with heart failure; I50.21 Acute systolic (congestive) heart failure
CPT/HCPCS: 36415; 80053; 81001; 85025; 87077; 87086; 87186; 99283

== ENCOUNTER 2025-06-16 18:42 | Emergency (ER) | payer OTHER, MEDICAID, SELFPAY ==
[2025-06-16] VITALS (7 sets, daily range): BP systolic 129–160; BP diastolic 66–87; PULSE 81–95; RESP 21–24; TEMP 36.6; O2SAT 93–98; BMI 16.9
--- OUTSIDE RECORDS SUMMARY | 2025-06-16 18:57 | XMS_ITS | Clinical Summary ---
Author Organization [facility] Address [address] [place] [address] Care Team Providers Care Insurance Verification Clerk Name Role Phone Unavailable Primary Care Provider [...]
--- OUTSIDE RECORDS SUMMARY | 2025-06-16 18:57 | XMS_ITS | Data Portability ---
Author Organization [facility], [facility] Address [address] [address] Care Team Providers Care Ripsawyer Name Role Phone CATALINO SANDERS Primary Care Provider Assessment Encounter Date Assessment Date Assessment LastModified by Organization Details LastModified Time 12/31/2024 12/31/2024 future labs ordered for monday lab only: cbc with peripheral smear, cmp, serum and urine immunoelectro phoresis, serum and urine kappa and lambda light chain ratio, tsh, free t4, b-12, folic acid [id number] Not available 12/31/2024 12:38:01 Plan of Treatment Reminders Order Date Submit Date Provider Last Modified By Organization Details Last Modified Time Details Appointments None recorded. Lab urinalysis, dipstick 2024 025 [email or web address] [facility] ([facility]), [address] [place], [address], 5 17:04:57 immunofixat ion + protein electrophor esis + free light chains, serum 2024 025 [email or web address] [facility], [address] [place] [address], [address] [place], [address], 5 10:12:36 protein electrophor esis, 24-hr urine 2024 025 [email or web address] [facility], [address] [place] [address], [address], [place], [address], 10:12:36 thyrotropin , QN, serum or plasma 2024 025 [facility], [address] [facility] [facility], [place], [address], 14:58:08 CMP, serum or plasma 2024 025 [facility], [address] [facility] [facility], [address], [place], [address], 5 13:34:20 T4, free, serum 2024 025 [employer] [facility], [address] [place] [address], [address], [place], [address], 16:48:15 CBC 2024 025 [facility], [address] [facility] [facility], [address], [place], [address], 13:35:33 unlisted lab - peripheral blood 2024 025 [email or web address] [id number] [facility], [address] [place] [address], [address], [place], [address], 10:12:36 folate, serum 2024 025 [facility], [address] [place] [address], [address], [place], [address], 16:48:13 vitamin B12, serum 2024 025 [employer] [facility], [address] [place] [address], [address], [place], [address], 16:48:16 kappa light chains free/lambda light chains free, ratio, 24h urine 2024 025 [facility], [address], [address], [place], [address], 16:29:05 Referral None recorded. Procedures None recorded. Surgeries None recorded. Imaging None recorded. Medication Orders Macrobid 100 mg capsule 2024 025 [facility], [facility] [place], [address], 05:01:30 cyanocobala min (vit B-12) 1,000 mcg sublingual tablet 2024 025 [facility], [facility] [place], [address], 17:48:36 Patient TargetsNo targets recorded. Patient InstructionsNo instructions recorded. Reason for Referral None Reported. Results Created Date Observation Date Name Description Value Unit Range Abnormal Flag Note LastModifiedBy Organization Detail LastModifiedTime 09/24/1909/24/2024 CBC WBC 3.0 x10 4.0-10 .5 low Not Available [facility] [address] [facility] [address], [place], [address], 09/24/2024 11:23:09 09/24/19 25 09/24/2024 CBC RBC 4.05 x10 3.50-5 .50 Not Available [facility] [address] [facility] [address], [place], [address], 09/24/2024 11:23:09 09/24/19 25 09/24/2024 CBC HGB 13.0 g/dL 12.0-1 6.0 Not Available [facility] [address] [facility], [place], [address], 09/24/2024 11:23:09 09/24/19 25 09/24/2024 CBC HCT 38.1 % 37.0-4 7.0 Not Available [facility] [address] [facility], [place], [address], 09/24/2024 11:23:09 09/24/1909/24/2024 CBC MCV 94.1 fL 80.0-9 9.9 Not Available [facility] [address] [facility], [place], [address], 09/24/2024 11:23:09/24/19 25 09/24/2024 CBC MCH 32.1 pg 27.0-3 2.0 high Not Available [facility] [address] [facility], [place], [address], 09/24/2024 11:23:09 09/24/19 25 09/24/2024 CBC MCHC 34.1 g/dL 32.0-3 6.0 Not Available [facility] [address] [facility], [place], [address], 09/24/2024 11:23:09 09/24/19 25 09/24/2024 CBC RDW 13.9 % 11.5-1 4.5 Not Available [facility] [address] [facility], [place], [address], 09/24/2024 11:23:09 09/24/19 25 09/24/2024 CBC plt 193.8 x10 140.0- 451.0 Not Available [facility] [address] [facility], [place], [address], 09/24/2024 11:23:09 09/24/19 25 09/24/2024 CBC lymphocytes % 26.8 % 20.0-5 0.0 Not Available [facility] [facility], [place], [address], 09/24/2024 11:23:09 09/24/19 25 09/24/2024 CBC granulcytes % 59.6 % 30.0-7 0.0 Not Available [facility] [address] [address], [place], [address], 09/24/2024 11:23:09 09/24/19 25 09/24/2024 CBC monocytes % 8.4 % 2.0-16 .0 Not Available [facility] [address] [address], [place], [address], 09/24/2024 11:23:09 09/24/19 25 09/24/2024 CBC granulcytes# 1.8 x10 Not Celeste [facility]able [facility] [address] [address], [place], [address], 09/24/2024 11:23:09 09/24/19 25 09/24/2024 CBC lymphocytes # 0.8 x10 Not Available [facility] [address] [address], [place], [address], 09/24/2024 11:23:09 09/24/19 25 09/24/2024 CBC monocytes # 0.3 x10 Not Avai lable [facility] [address] [address], [place], [address], 09/24/2024 11:23:09 09/24/19 25 09/24/2024 CMP (FEMA LE) glucose 94.0 mg/dL 60.0-9 9.0 Not Available [facility] [address] [address], [place], [address], 09/24/2024 11:40:42 09/24/1909/24/2024 CMP (FEMA LE) BUN (blood urea nitrogen) 29.0 mg/dL 10.0-2 6.0 high Not Available [facility] [address] [address], [place], [address], 09/24/2024 11:40:42 09/24/19 25 09/24/2024 CMP (FEMA LE) creatinine (serum) 1.5 mg/dL 0.4-1. 5 Not Available [facility] [address] [facility] 1, [place], [address], 09/24/2024 11:40:42 09/24/19 25 09/24/2024 CMP (FEMA LE) BUN/creatini ne ratio 19.33 ratio Not Available [facility] [address] [facility] 1, [place], [address], 09/24/2024 11:40:42 09/24/19 25 09/24/2024 CMP (FEMA LE) eGFR calculated 35.8 Not Available [facility] [address] [address], [place], [address], 09/24/2024 11:40:42 09/24/19 25 09/24/2024 CMP (FEMA LE) total protein 7.5 g/dL 6.0-8. 5 Not Available [facility] [address] [address], [place], [address], 09/24/2024 11:40:42 09/24/19 25 09/24/2024 CMP (FEMA LE) total bilirubin 0.7 mg/dL 0.2-1. 3 Not Available [facility] [address] [address], [place], [address], 09/24/2024 11:40:42 09/24/19 25 09/24/2024 CMP (FEMA LE) albumin 4.7 g/dL 3.5-5. 5 Not Available [facility] [address] [address], [place], [address], 09/24/2024 11:40:42 09/24/19 25 09/24/2024 CMP (FEMA LE) globulin 2.8 calc Not Available [facility] [address] [facility], [place], [address], 09/24/2024 11:40:42 09/24/19 25 09/24/2024 CMP (FEMA LE) AST (SGOT) 19.0 U/L 0.0-46 .0 Not Available [facility] [address] [facility] 1, [place], [address], 09/24/2024 11:40:42 09/24/19 25 09/24/2024 CMP (FEMA LE) altv (SGPT) 12.0 U/L 13.0-6 9.0 abnormal Not Available [facility] [address] [facility], [place], [address], 09/24/2024 11:40:42 09/24/19 25 09/24/2024 CMP (FEMA LE) A/G ratio 1.7 ratio Not Available [facility] [address] [facility] 1, [place], [address], 09/24/2024 11:40:42 09/24/19 25 09/24/2024 CMP (FEMA LE) ALP phos 127.0 U/L 30.0-1 40.0 normal Not Available [facility] [address] [facility] 1, [place], [address], 09/24/2024 11:40:42 09/24/19 25 09/24/2024 CMP (FEMA LE) calcium 9.9 mg/dL 8.4-10 .5 Not Available [facility] [address] [facility] 1, [place], [address], 09/24/2024 11:40:42 09/24/19 25 09/24/2024 CMP (FEMA LE) sodium 137.0 mmol/ L 136.0- 145.0 Not Available [facility] [address] [address], [place], [address], 09/24/2024 11:40:42 09/24/19 25 09/24/2024 CMP (FEMA LE) potassium 4.5 mmol/ L 3.5-5. 1 Not Available [facility] [address] [facility] 1, [place], [address], 09/24/2024 11:40:42 09/24/19 25 09/24/2024 CMP (FEMA LE) chloride 106.0 mmol/ L 98.0-1 10.0 normal Not Available [facility] [address] [facility] 1, [place], [address], 09/24/2024 11:40:42 09/24/19 25 09/24/2024 CMP (FEMA LE) C02 21.0 mmol/ L 22.0-3 1.0 low Not Available [facility] [address] [facility] 1, [place], [address], 09/24/2024 11:40:42 09/24/19 25 09/24/2024 CMP (FEMA LE) anion gap 10.0 calc Not Available [facility] [address] [facility] 1, [place], [address], 09/24/2024 11:40:42 09/24/19 25 09/24/2024 CMP (FEMA LE) osmolality 288.4 calc Not Available [facility] [address] [facility] 1, [place], [address], 09/24/2024 11:40:42 09/24/19 25 10/01/2024 PROTE IN, TOTAL AND PROTE IN ELECT ROPHO RESIS WITH IMMUN OFIXA TION protein, total 6.8 g/dL 6.1-8. 1 normal Not Available [facility] [address], [place], [address], 10/01/2024 18:19:46 01/14/20 25 10/01/2024 PROTE IN, TOTAL AND PROTE IN ELECT ROPHO RESIS WITH IMMUN OFIXA TION carlos interpretati on Kaitlyn headley rn. No monoc lonal prote ins detec farzaneh. Not Available [address] [place], [address], 10/01/2024 18:19:46 09/24/19 25 10/01/2024 PROTE IN, TOTAL AND PROTE IN ELECT ROPHO RESIS WITH IMMUN OFIXA TION albumin 4.1 g/dL 3.8-4. 8 normal Not Available [address] [address] [place], [address], 10/01/2024 18:19:46 09/24/19 25 10/01/2024 PROTE IN, TOTAL AND PROTE IN ELECT ROPHO RESIS WITH IMMUN OFIXA TION alpha 1 globulin 0.4 g/dL 0.2-0. 3 high Not Available [facility] [address] [address] [address] , [place], [address], 10/01/2024 18:19:46 09/24/19 25 10/01/2024 PROTE IN, TOTAL AND PROTE IN ELECT ROPHO RESIS WITH IMMUN OFIXA TION alpha 2 globulin 1.0 g/dL 0.5-0. 9 high Not Available [address] [address] [place], [address], 10/01/2024 18:19:46 09/24/19 25 10/01/2024 PROTE IN, TOTAL AND PROTE IN ELECT ROPHO RESIS WITH IMMUN OFIXA TION beta 1 globulin 0.4 g/dL 0.4-0. 6 normal Not Available [facility] [address] [address] [place], [address], 10/01/2024 18:19:46 09/24/19 25 10/01/2024 PROTE IN, TOTAL AND PROTE IN ELECT ROPHO RESIS WITH IMMUN OFIXA TION beta 2 globulin 0.4 g/dL 0.2-0. 5 normal Not Available [facility] [address] [place], [address], 10/01/2024 18:19:46 09/24/19 25 10/01/2024 PROTE IN, TOTAL AND PROTE IN ELECT ROPHO RESIS WITH IMMUN OFIXA TION gamma globulin 0.6 g/dL 0.8-1. 7 low Not Available [facility] [address] [address] [place], [address], 10/01/2024 18:19:46 09/24/19 25 10/01/2024 PROTE IN, TOTAL AND PROTE IN ELECT ROPHO RESIS WITH IMMUN OFIXA TION interpretati on Hypog ammag lobul inemi a may be seen in early or evolv ing lymph oprol ifera tive disor ders, acqui red or conge nital immun e defic ienci es, immun osupp ressi ve thera py and light chain disea se. Consi evangelina urine prote in elect ropho resis , urine immun ofixa tion and/o r free light chain s if clini brenda indic ated. Not Available [address], [address], 10/01/2024 18:19:46 09/24/19 25 10/01/2024 ALKAL INE PHOSP HATAS E ISOEN ZYMES alkaline phosphatase 116 U/L 37-153 SAMPL E SLIGH TLY HEMOL YZED. Not Available [address] [address] [place], [address], 10/01/2024 18:19:47 09/24/19 25 10/01/2024 ALKAL INE PHOSP HATAS E ISOEN ZYMES intestinal isoenzymes 0 % 1-24 low Not Available [facility] [address] [address] [place], [address], 10/01/2024 18:19:47 09/24/19 25 10/01/2024 ALKAL INE PHOSP HATAS E ISOEN ZYMES bone isoenzymes 60 % 28-66 Not Available [facility] [address], [place], [address], 10/01/2024 18:19:47 09/24/19 25 10/01/2024 ALKAL INE PHOSP HATAS E ISOEN ZYMES liver isoenzymes 40 % 25-69 Incre ased intes tinal alkal ine phosp hatas e can be seen in blood group O and B secre tors and after fatty meals . Not Available [address], [address], 10/01/2024 18:19:47 09/24/19 25 10/01/2024 ALKAL INE PHOSP HATAS E ISOEN ZYMES placental isoenzymes 0 % 0 Not Available [address], [address], 10/01/2024 18:19:47 09/24/19 25 10/01/2024 IRON AND TOTAL IRON SHARON NG CAPAC ITY iron, total 67 mcg/d L 45-160 normal Not Available [address], [address], 10/01/2024 18:19:48 09/24/19 25 10/01/2024 IRON AND TOTAL IRON SHARON NG CAPAC ITY iron binding capacity 377 mcg/d L_(ca lc) 250-45 0 normal Not Available [address], [address], 10/01/2024 18:19:48 09/24/19 25 10/01/2024 IRON AND TOTAL IRON SHARON NG CAPAC ITY % saturation 18 %_(ca lc) 16-45 normal Not Available [address], [address], 10/01/2024 18:19:48 09/24/19 25 10/01/2024 KAPPA /IVY DA LIGHT CHAIN , FREE W/RAT IO,RA ND URINE kappa light chain, free, urine 0.46 mg/L <=32.9 0 Not Available [address] [place], [address], 10/01/2024 18:19:48 09/24/19 25 10/01/2024 KAPPA /IVY DA LIGHT CHAIN , FREE W/RAT IO,RA ND URINE lambda light chain, free, urine <0.74 mg/L <=3.79 Not Available [facility] [address] [address] [place], [address], 10/01/2024 18:19:48 09/24/19 25 10/01/2024 KAPPA /IVY DA LIGHT CHAIN , FREE W/RAT IO,RA ND URINE kappa/lambda , free ratio SEE NOTE Test canno t be calcu lated If free light chain resul ts do not agree with other clini margaret or labor atory findi ngs, repea t testi ng on a dilut ed sampl e to rule out antig en exces s may be reque sted. Not Available [facility] [place] [address] [place], [address], 10/01/2024 18:19:48 09/24/19 25 10/01/2024 METHY LMALO HUY ACID AND HOMOC YSTEI NE methylmaloni c acid 459 nmol/ L 69-390 high Serum methy lmalo huy acid (MMA) level s are used to diagn ose and monit or sever al rare inbor n error s of metab olism , inclu ding methy lmalo huy acidu júnior. The enzym atic conve rsion of MMA to succi huy acid requi res vitam in B12 (cris osyl- cobal carpenter) as a cofac tor. Serum MMA level s are also used for asses sing funct ional vitam in B12 defic iency . Vitam in B12 is essen tial for neuro devel opmen t, parti cular ly early in pregn mirta. Undia gnose d mater nal vitam in B12 defic iency may be assoc iated with adver se /neon atal outco mes, such as neura l tube defec ts and intra uteri ne growt h restr ictio n. [facility] utili zed Multi -Moda l Decom posit ion (MMD) gaurav sis to estab manasa first and secon d trime ster- speci fic MMA refer ence inter vals in pregn mirta, as given below : MMA, First trime ster (<13 wks gesta tion) : 58-16 7 nmol/ L MMA, Secon d trime ster (13-2 3 wks gesta tion) : 63-24 1 nmol/ L This test was devel oped and its gaurav tical perfo rmanc e kirstin cteri stics have been deter mined by [facility]. It has not been clear ed or appro edwin by FDA. This assay has been valid ated pursu ant to the CLIA regul ation s and is used for clini margaret purpo ses. Not Available [facility] [address] [place], [address], 10/01/2024 18:19:50 09/24/19 25 10/01/2024 METHY LMALO HUY ACID AND HOMOC YSTEI NE homocysteine 22.7 umol/ L <10.4 high Homoc ystei ne is incre ased by funct ional defic iency of folat e or vitam in B12. Testi ng for methy lmalo huy acid diffe renti ates betwe en these defic ienci es. Other cause s of incre ased homoc ystei ne inclu de renal failu re, folat e antag onist s such as metho trexa te and pheny toin, and expos ure to nitro us oxide . Kapil Stark, et al. Lela Inter n Med. 1999; 131(5 ):331 -9. Not Available [facility] [address] [address] , [place], [address], 10/01/2024 18:19:50 09/24/1910/01/2024 PARTI AL THROM BOPLA STIN TIME, ACTIV ATED partial thromboplast in time, activated 28 sec 23-32 normal This test has not been valid ated for monit oring unfra ction ated hepar in thera py. For testi ng that is valid ated for this type of thera py, pleas e refer to the Hepar in Anti- Xa assay (test code 02598 ). For addit ional infor rc richards refer to http: //[email or web address]tero [email or web address].c om/fa q/FAQ 159 (This link is being provi ded for infor saranya nal/e ducat ional purpo ses only. ) Not Available [address], [address], 10/01/2024 18:19:51 09/24/19 25 10/01/2024 RETIC ULOCY TE COUNT reticulocyte count, automated 0.7 % normal Not Available [address], [address], 10/01/2024 18:19:51 09/24/19 25 10/01/2024 RETIC ULOCY TE COUNT reticulocyte , absolute 29124 cells /uL [address] normal Not Available [address], [address], 10/01/2024 18:19:51 09/24/19 25 10/01/2024 IMMUN OFIXA TION, URINE carlos interpretati on No monoc lonal immun oglob ulin detec farzaneh. The suppl ier of the testi ng reage nts for this assay has weiss ed. Detec tion of small monoc lonal prote ins may vary by test syste m. Not Available [address] [address] [place], [address], 10/01/2024 18:19:52 09/24/1910/01/2024 KAPPA /IVY DA LIGHT CHAIN S FREE WITH RATIO , SERUM kappa light chain, free, serum 32.4 mg/L 3.3-19 .4 high Not Available [address] [address] [place], [address], 10/01/2024 18:19:53 09/24/19 25 10/01/2024 KAPPA /IVY DA LIGHT CHAIN S FREE WITH RATIO , SERUM lambda light chain, free, serum 15.3 mg/L 5.7-26 .3 normal Not Available [facility] [address] [place], [address], 10/01/2024 18:19:53 09/24/19 25 10/01/2024 KAPPA /IVY DA LIGHT CHAIN S FREE WITH RATIO , SERUM kappa/lambda light chains free with ratio, serum 2.12 0.26-1 .65 high Free kappa /ivy da ratio in serum of kaitlyn l indiv idual s is 0.26- 1.65. Exces s produ ction of free kappa or lambd a chain s can alter this ratio . Monoc lonal free light chain s are found in serum of patie nts with multi ple myelo ma, Walde nstro m's macro globu linem ia, mu-he wallace chain disea se, prima ry amylo idosi s, light chain depos ition disea se, monoc lonal gammo wing of undet ermin ed signi fican ce, and lymph oprol ifera tive disor ders. Measu remen t of free light chain luis antonio ntrat ion in serum is usefu l for diagn osis, progn osis, monit oring disea se activ ity and follo wing respo nse to thera py of these disor ders. Not Available [facility] [address] [address], [place], [address], 10/01/2024 18:19:53 09/24/19 25 10/01/2024 VITAM IN B12/F OLATE , SERUM PANEL vitamin B12 377 pg/mL 200-11 00 normal Pleas e Note: Altho ugh the refer ence range for vitam in B12 is 200-1 100 pg/mL , it has been repor farzaneh that betwe en 5 and 10% of patie nts with value s betwe en 200 and 400 pg/mL may exper ience neuro psych iatri c and hemat ologi c abnor malit ies due to occul t B12 defic iency ; less than 1% of patie nts with value s above 400 pg/mL will have sympt oms. Not Available [address] [address] [place], [address], 10/01/2024 18:19:54 09/24/19 25 10/01/2024 VITAM IN B12/F OLATE , SERUM PANEL folate, serum >24.0 NG/mL normal Refer ence Range Low: <3.4 Borde rline : 3.4-5 .4 Kaitlyn l: >5.4 Not Available [address] [address] [place], [address], 10/01/2024 18:19:54 09/24/19 25 10/01/2024 PROTE IN, TOTAL AND PROTE IN ELECT DAMI HIRSCH URINE creatinine, random urine 86 mg/dL 20-275 normal Not Available [address] [address] [place], [address], 10/01/2024 18:19:55 09/24/19 25 10/01/2024 PROTE IN, TOTAL AND PROTE IN ELECT ADDIS HIRSCHO M URINE protein/crea tinine ratio 616 mg/g_ creat 24-184 high Not Available [address], [address], 10/01/2024 18:19:55 09/24/19 25 10/01/2024 PROTE IN, TOTAL AND PROTE IN ELECT ADDIS HIRSCHO Viet URINE protein/crea tinine ratio 0.616 mg/mg _crea t 0.024- 0.184 high Not Available [address] [address] [place], [address], 10/01/2024 18:19:55 09/24/19 25 10/01/2024 PROTE IN, TOTAL AND PROTE IN ELECT ADDIS HIRSCHO Viet URINE protein, total, random ur 53 mg/dL 5-24 high Not Available [address], [address], 10/01/2024 18:19:55 09/24/19 25 10/01/2024 PROTE IN, TOTAL AND PROTE IN ELECT [facility] DAMI FORD URINE albumin 50 % Not Available [address], [address], 10/01/2024 18:19:55 09/24/19 25 10/01/2024 PROTE IN, TOTAL AND PROTE IN [facility] [id number] ulins 5 % Not Available [address], [address], 10/01/2024 18:19:55 09/24/19 25 10/01/2024 PROTE IN, TOTAL AND PROTE IN [facility]INE [id number] ulins 15 % Not Available [address], [address], 10/01/2024 18:19:55 09/24/19 25 10/01/2024 PROTE IN, TOTAL AND PROTE IN [facility]INE beta globulins 18 % Not Available [address], [address], 10/01/2024 18:19:55 09/24/19 25 10/01/2024 PROTE IN, TOTAL AND PROTE IN [facility]INE gamma globulins 12 % Not Available [address], [address], 10/01/2024 18:19:55 09/24/19 25 10/01/2024 PROTE IN, TOTAL AND PROTE IN [facility] RANDO URINE interpretati on Agaro se [facility] of urine revea ls album in and vario us globu senthil fract ions. No abnor mal prote in is obser edwin. The suppl ier of the testi ng reage nts for this assay has isela ed. Detec tion of small monoc lonal prote ins may vary by test syste m. Urine immun ofixa tion is sugge sted if clini brenda indic ated and not alrea dy order ed. Not Available [facility] [address] [place], [address], 10/01/2024 18:19:55 09/24/19 25 09/24/2024 ESR (eryt hrocy te sedim entat ion rate) , blood SedRate 30 Not Available [facility] ([facility]) [address] [place] [address], [phone], 09/24/2024 09:33:41 09/24/1909/24/2024 PT/IN R Protime 12.2 Not Available [facility] ([facility]) [address] [place] [address], [phone], 09/24/2024 09:34:12 09/24/1909/24/2024 PT/IN R INR 1.0 Not Available [facility] ([facility]) [address] [place] [address], [address], 09/24/2024 09:34:12 01/04/20 25 01/03/2025 CMP (FEMA LE) glucose 80.0 mg/dL 60.0-9 9.0 Not Available [facility] [address] [facility] [address], [place], [address], 01/03/2025 13:34:20 01/04/20 25 01/03/2025 CMP (FEMA LE) BUN (blood urea nitrogen) 46.0 mg/dL 10.0-2 6.0 high Not Available [facility] [address] [facility] [address], [place], [address], 01/03/2025 13:34:20 01/04/20 25 01/03/2025 CMP (FEMA LE) creatinine (serum) 1.6 mg/dL 0.4-1. 5 high Not Available [facility] [address] [facility] [address], [place], [address], 01/03/2025 13:34:20 01/04/20 25 01/03/2025 CMP (FEMA LE) BUN/creatini ne ratio 28.75 ratio Not Available [facility] [address] [facility] [address], [place], [address], 01/03/2025 13:34:20 01/04/20 25 01/03/2025 CMP (FEMA LE) eGFR calculated 33.1 Not Available [facility] [address] [facility] [address], [place], [address], 01/03/2025 13:34:20 01/04/20 25 01/03/2025 CMP (FEMA LE) total protein 8.0 g/dL 6.0-8. 5 Not Available [facility] [address] [facility] [address], [place], [address], 01/03/2025 13:34:20 01/04/20 25 01/03/2025 CMP (FEMA LE) total bilirubin 0.7 mg/dL 0.2-1. 3 Not Available [facility] [address] [facility] [address], [place], [address], 01/03/2025 13:34:20 01/04/20 25 01/03/2025 CMP (FEMA LE) albumin 5.0 g/dL 3.5-5. 5 Not Available [facility] [address] [facility] [address], [place], [address], 01/03/2025 13:34:20 01/04/20 25 01/03/2025 CMP (FEMA LE) globulin 3.0 calc Not Available [facility] [address] [facility] [address], [place], [address], 01/03/2025 13:34:20 01/04/20 25 01/03/2025 CMP (FEMA LE) AST (SGOT) 21.0 U/L 0.0-46 .0 Not Available [facility] [address] [facility] [address], [place], [address], 01/03/2025 13:34:20 01/04/20 25 01/03/2025 CMP (FEMA LE) altv (SGPT) 12.0 U/L 13.0-6 9.0 abnormal Not Available [facility] [address] [facility] [address], [place], [address], 01/03/2025 13:34:20 01/04/20 25 01/03/2025 CMP (FEMA LE) A/G ratio 1.7 ratio Not Available [facility] [address] [facility] [address], [place], [address], 01/03/2025 13:34:20 01/04/20 25 01/03/2025 CMP (FEMA LE) ALP phos 97.0 U/L 30.0-1 40.0 normal Not Available [facility] [address] [facility] [address], [place], [address], 01/03/2025 13:34:20 01/04/20 25 01/03/2025 CMP (FEMA LE) calcium 10.0 mg/dL 8.4-10 .5 Not Available [facility] [address] [facility] [address], [place], [address], 01/03/2025 13:34:20 01/04/20 25 01/03/2025 CMP (FEMA LE) sodium 141.0 mmol/ L 136.0- 145.0 Not Available [facility] [address] [facility] [address], [place], [address], 01/03/2025 13:34:20 01/04/20 25 01/03/2025 CMP (FEMA LE) potassium 5.0 mmol/ L 3.5-5. 1 Not Available [facility] [address] [facility], [place], [address], 01/03/2025 13:34:20 01/04/2001/03/2025 CMP (FEMA LE) chloride 108.0 mmol/ L 98.0-1 10.0 normal Not Available [facility] [address] [facility] [address], [place], [address], 01/03/2025 13:34:20 01/04/2001/03/2025 CMP (FEMA LE) C02 22.0 mmol/ L 22.0-3 1.0 Not Available [facility] [address] [facility], [place], [address], 01/03/2025 13:34:20 01/04/2001/03/2025 CMP (FEMA LE) anion gap 11.0 calc Not Available [facility] [address] [facility] [address], [place], [address], 01/03/2025 13:34:20 01/04/2001/03/2025 CMP (FEMA LE) osmolality 301.3 calc Not Available [facility] [address] [facility] [address], [place], [address], 01/03/2025 13:34:20 01/04/2001/03/2025 CBC WBC 4.2 x10 4.0-10 .5 Not Available [facility] [address] [facility] [address], [place], [address], 01/03/2025 13:35:33 01/04/2001/03/2025 CBC RBC 4.33 x10 3.50-5 .50 Not Available [facility] [address] [facility] [address], [place], [address], 01/03/2025 13:35:33 01/04/2001/03/2025 CBC HGB 13.7 g/dL 12.0-1 6.0 Not Available [facility] [address] [facility] [address], [place], [address], 01/03/2025 13:35:33 01/04/2001/03/2025 CBC HCT 42.0 % 37.0-4 7.0 Not Available [facility] [address] [facility], [place], [address], 01/03/2025 13:35:33 01/04/2001/03/2025 CBC MCV 97.0 fL 80.0-9 9.9 Not Available [facility] [address] [facility], [place], [address], 01/03/2025 13:35:33 01/04/2001/03/2025 CBC MCH 31.7 pg 27.0-3 2.0 Not Available [facility] [address] [facility], [place], [address], 01/03/2025 13:35:33 01/04/2001/03/2025 CBC MCHC 32.7 g/dL 32.0-3 6.0 Not Available [facility] [address] [facility], [place], [address], 01/03/2025 13:35:33 01/04/2001/03/2025 CBC RDW 13.4 % 11.5-1 4.5 Not Available [facility] [address] [facility], [place], [address], 01/03/2025 13:35:33 01/04/2001/03/2025 CBC plt 179.0 x10 140.0- 451.0 Not Available [facility] [address] [facility], [place], [address], 01/03/2025 13:35:33 01/04/20 25 01/03/2025 CBC lymphocytes % 27.2 % 20.0-5 0.0 Not Available [facility] [address] [facility] [address], [place], [address], 01/03/2025 13:35:33 01/04/20 25 01/03/2025 CBC granulcytes % 65.3 % 30.0-7 0.0 Not Available [facility] [address] [facility] [address], [place], [address], 01/03/2025 13:35:33 01/04/20 25 01/03/2025 CBC monocytes % 5.3 % 2.0-16 .0 Not Available [facility] [address] [facility] [address], [place], [address], 01/03/2025 13:35:33 01/04/20 25 01/03/2025 CBC granulcytes# 2.8 x10 Not Celeste ilable [facility] [address] [facility] [address], [place], [address], 01/03/2025 13:35:33 01/04/20 25 01/03/2025 CBC lymphocytes # 1.1 x10 Not Available [facility] [address] [facility] [address], [place], [address], 01/03/2025 13:35:33 01/04/20 25 01/03/2025 CBC monocytes # 0.2 x10 Not Avai lable [facility] [address] [facility] [address], [place], [address], 01/03/2025 13:35:33 01/04/20 25 01/03/2025 TSH TSH 1.77 uIU/m L 0.49-3 .82 Not Available [facility] [address] [address], [place], [address], 01/03/2025 14:58:08 01/04/2001/04/2025 PERIP HERAL BLOOD SMEAR REVIE W peripheral blood smear review RBC morph ology appea rs kaitlyn l. Revie w of the perip heral smear revea ls adequ ate numbe rs of plate lets. Revie w of perip heral smear confi travis autom ated resul ts. Not Available [facility] [address] [address] [place], [address], 01/04/2025 15:40:47 01/04/2001/09/2025 PROTE IN, TOTAL AND PROTE IN ELECT ROPHO RESIS WITH IMMUN OFIXA TION protein, total 7.4 g/dL 6.1-8. 1 normal Not Available [address] [address] [place], [address], 01/09/2025 16:48:10 01/04/20 25 01/09/2025 PROTE IN, TOTAL AND PROTE IN ELECT ROPHO RESIS WITH IMMUN OFIXA TION carlos interpretati on Kaitlynsonia headley rn. No monoc lonal prote ins detec farzaneh. Not Available [address] [address] [address] , [place], [address], 01/09/2025 16:48:10 01/04/20 25 01/09/2025 PROTE IN, TOTAL AND PROTE IN ELECT ROPHO RESIS WITH IMMUN OFIXA TION albumin 4.6 g/dL 3.8-4. 8 normal Not Available [facility] [address] [address] [place], [address], 01/09/2025 16:48:10 01/04/20 25 01/09/2025 PROTE IN, TOTAL AND PROTE IN ELECT ROPHO RESIS WITH IMMUN OFIXA TION alpha 1 globulin 0.4 g/dL 0.2-0. 3 high Not Available [facility] [address] [address] [place], [address], 01/09/2025 16:48:10 01/04/20 01/09/2025 PROTE IN, TOTAL AND PROTE IN ELECT ROPHO RESIS WITH IMMUN OFIXA TION alpha 2 globulin 1.0 g/dL 0.5-0. 9 high Not Available [facility] [address], [address], 01/09/2025 16:48:10 01/04/20 25 01/09/2025 PROTE IN, TOTAL AND PROTE IN ELECT ROPHO RESIS WITH IMMUN OFIXA TION beta 1 globulin 0.5 g/dL 0.4-0. 6 normal Not Available [facility] [address], [address], 01/09/2025 16:48:10 01/04/20 25 01/09/2025 PROTE IN, TOTAL AND PROTE IN ELECT ROPHO RESIS WITH IMMUN OFIXA TION beta 2 globulin 0.4 g/dL 0.2-0. 5 normal Not Available [address], [address], 01/09/2025 16:48:10 01/04/20 25 01/09/2025 PROTE IN, TOTAL AND PROTE IN ELECT ROPHO RESIS WITH IMMUN OFIXA TION gamma globulin 0.6 g/dL 0.8-1. 7 low Not Available [address], [address], 01/09/2025 16:48:10 01/04/2001/09/2025 PROTE IN, TOTAL AND PROTE IN ELECT ROPHO RESIS WITH IMMUN OFIXA TION interpretati on Hypog ammag lobul inemi a may be seen in early or evolv ing lymph oprol ifera tive disor ders, acqui red or conge nital immun e defic ienci es, immun osupp ressi ve thera py and light chain disea se. Consi evangelina urine prote in elect ropho resis , urine immun ofixa tion and/o r free light chain s if clini brenda indic ated. Not Available [facility] [address], [address], 01/09/2025 16:48:10 01/04/20 25 01/09/2025 KAPPA /IVY DA LIGHT CHAIN , FREE W/RAT IO,RA ND URINE kappa light chain, free, urine 13.89 mg/L <=32.9 0 Not Available [address], [address], 01/09/2025 16:48:11 01/04/20 25 01/09/2025 KAPPA /IVY DA LIGHT CHAIN , FREE W/RAT IO,RA ND URINE lambda light chain, free, urine 2.29 mg/L <=3.79 Not Available [address], [address], 01/09/2025 16:48:11 01/04/2001/09/2025 KAPPA /IVY DA LIGHT CHAIN , FREE W/RAT IO,RA ND URINE kappa/lambda , free ratio 6.07 <=8.69 If free light chain resul ts do not agree with other clini margaret or labor atory findi ngs, repea t testi ng on a dilut ed sampl e to rule out antig en exces s may be reque sted. Not Available [address], [address], 01/09/2025 16:48:11 01/04/2001/09/2025 IMMUN OFIXA TION, URINE carlos interpretati on No monoc lonal immun oglob ulin detec farzaneh. The suppl ier of the testi ng reage nts for this assay has weiss ed. Detec tion of small monoc lonal prote ins may vary by test syste m. Not Available [address], [address], 01/09/2025 16:48:12 01/04/20 25 01/09/2025 KAPPA /IVY DA LIGHT CHAIN S FREE WITH RATIO , SERUM kappa light chain, free, serum 33.7 mg/L 3.3-19 .4 high Not Available [facility] [address] [place], [address], 01/09/2025 16:48:12 01/04/2001/09/2025 KAPPA /IVY DA LIGHT CHAIN S FREE WITH RATIO , SERUM lambda light chain, free, serum 15.0 mg/L 5.7-26 .3 normal Not Available [facility] [address] [place], [address], 01/09/2025 16:48:12 01/04/2001/09/2025 KAPPA /IVY DA LIGHT CHAIN S FREE WITH RATIO , SERUM kappa/lambda light chains free with ratio, serum 2.25 0.26-1 .65 high Free kappa /ivy da ratio in serum of kaitlyn l indiv idual s is 0.26- 1.65. Exces s produ ction of free kappa or lambd a chain s can alter this ratio . Monoc lonal free light chain s are found in serum of patie nts with multi ple myelo ma, Walde nstro m's macro globu linem ia, mu-he wallace chain disea se, prima ry amylo idosi s, light chain depos ition disea se, monoc lonal gammo wing of undet ermin ed signi fican ce, and lymph oprol ifera tive disor ders. Measu remen t of free light chain luis antonio ntrat ion in serum is usefu l for diagn osis, progn osis, monit oring disea se activ ity and follo wing respo nse to thera py of these disor ders. Not Available [facility] [address] [address] [place], [address], 01/09/2025 16:48:12 01/04/2001/09/2025 FOLAT E, SERUM folate, serum >24.0 NG/mL normal Refer ence Range Low: <3.4 Borde rline : 3.4-5 .4 Kaitlyn l: >5.4 Not Available [facility] [address] [address] [place], [address], 01/09/2025 16:48:13 01/04/20 25 01/09/2025 T4, FREE T4, free 1.4 NG/dL 0.8-1. 8 normal Not Available [facility] [address] [place], [address], 01/09/2025 16:48:14 01/04/20 25 01/09/2025 VITAM IN B12 vitamin B12 759 pg/mL 200-11 00 normal Not Available [facility] [address] [place], [address], 01/09/2025 16:48:16 01/16/20 25 01/15/2025 urina lysis , dipst ick Leukocytes Large Not Available [facility] ([facility]) [address] [place] [address], [address], 01/15/2025 16:52:10 01/16/20 25 01/15/2025 urina lysis , dipst ick Nitrite positi ve Not Available [facility] ([facility]) [address] [place], [address], 01/15/2025 16:52:10 01/16/20 25 01/15/2025 urina lysis , dipst ick Urobilinogen 4 Not Available [facility] ([facility]) [address] [place], [address], 01/15/2025 16:52:10 01/16/20 25 01/15/2025 urina lysis , dipst ick Protein 300 Not Available [facility] ([facility]) [address] [place], [address], 01/15/2025 16:52:10 01/16/20 25 01/15/2025 urina lysis , dipst ick pH 5.5 Not Available [facility] ([facility]) [address] [place], [address], 01/15/2025 16:52:10 01/16/20 25 01/15/2025 urina lysis , dipst ick Blood Large Not Available [facility] ([facility]) [address] [place], [address], 01/15/2025 16:52:10 01/16/20 25 01/15/2025 urina lysis , dipst ick Specific [place] 1.015 Not Available [facility] ( [facility]) [address] [place], [address], 01/15/2025 16:52:10 01/16/20 25 01/15/2025 urina lysis , dipst ick Ketone Negati ve Not Available [facility] ([facility]) [address] [place], [address], 01/15/2025 16:52:10 01/16/20 25 01/15/2025 urina lysis , dipst ick Bilirubin Small Not Available [facility] ([facility]) [address] [place], [address], 01/15/2025 16:52:10 01/16/20 25 01/15/2025 urina lysis , dipst ick Glucose Negati ve Not Available [facility] ([facility]) [address] [place], [address], 01/15/2025 16:52:10 01/16/20 25 01/15/2025 urina lysis , dipst ick Appearance Clear Not Available [facility] ([facility]) [address] [place], [address], 01/15/2025 16:52:10 01/16/20 25 01/15/2025 urina lysis , dipst ick Color Red Not Available [facility] ([facility]) [address] [place], [address], 01/15/2025 16:52:10 09/16/19 25 09/13/2024 XR, foot, 3 or more view No observ ation record ed. [email or web address] [facility] [address] [place], [address], 09/16/2024 12:27:03 Result Notes None recorded. Problems Name Problem SNOMED Code Status Onset Date Resolution Date Notes Provider Name and Address Organization Details Recorded Time Hypovole gigi shock 79564020 Completed 201512/31/2024 hypovole gigi shock due to GI bleed; hx of ROSALINE dickerson [facility] 12:05:50 Deep venous thrombos is 269076092 Completed 201712/31/2024 DVT, right lower extremit y, hx of ROSALINE dickerson [facility] 12:05:50 Carotid artery stenosis 37658029 Active 2022 Carotid Artery Stenosis ; Right Internal 40% stenosis Left Internal 50% Stenosis There is a 80% stenosis at the origin of the R common carotid artery within the chest; 11/11/19 23 9:01AM by Mojgan vIy RN, Office Visit; Promoted ; acuity set as *; ROSALINE dickerson [facility] 11:58:07 Gastroin testinal hemorrha ge 86036038 Completed 202212/31/2024 hx of ROSALINE dickerson [facility] 12:05:50 Acute non-ST segment elevatio n myocardi al infarcti on 224340998 Completed 202212/31/2024 hx of ROSALINE dickerson [facility] 12:05:50 Upper gastroin testinal bleeding 71818667 Completed 202212/31/2024 hx of ROSALINEChente SILVEIRA jayla, [facility] 5 12:05:50 Gastroes ophageal reflux disease 324459490 Active 2022 ROSALINE RAOUL [facility] 5 11:56:48 Moderate mitral valve regurgit ation 742097928 Active 2022 ROSALINE SILVEIRA [facility], [facility] 5 12:05:18 Normocyt ic anemia 414340432 Active 2022 ROSALINE SILVIERA [facility], [facility] 5 11:58:07 Disorder of vitamin B12 114188037 Active 2022 ROSALINE SILVEIRA [facility] 5 11:56:49 Chronic diastoli c heart failure 633307554 Active 2022 ROSALINE SILVEIRA [facility], [facility] 4 10:37:33 History of myocardi al infarcti on 897078584 Active 2022 ROSALINE SILVEIRA [facility] 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 5 11:56:49 Chronic kidney disease stage 3B 197651132 Active 2023 ROSALINE SILVEIRA [facility] 4 10:37:58 Chronic obstruct isidoro pulmonar y disease 90310321 Active 2023 ROSALINE SILVEIRA [facility], [facility] 4 10:26:58 Peripher al vascular disease 261925938 Active 2023 ROSALINE SILVEIRA null, [facility] 5 11:58:07 Nicotine dependen ce 01143464 Active 2023 ROSALINE SILVEIRA null, [facility] 5 11:58:07 Essentia l hyperten fernando 81063774 Active 2023 ROSALINE SILVEIRA null, [facility] 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 5 11:56:48 Major depressi ve disorder 761942554 Active 2023 ROSALINE SILVEIRA null, [facility] 5 11:56:48 Chronic systolic heart failure 963829497 Active 2023 ROSALINE SILVEIRA null, [facility] 5 11:56:48 Leg length inequali ty 19455295 Active 2023 ROSALINE SILVEIRA null, [facility] 5 12:05:18 Osteonec rosis of hip 479225810 Completed 202312/31/2024 ROSALINE SILVEIRA null, [facility] 5 12:05:50 Anemia 216965314 Active 2023 ROSALINE SILVEIRA null, [facility] 5 11:56:48 Neutrope tiana 494822293 Active 2024 ROSALINE SILVEIRA null, [facility] 5 12:05:18 Ischemic congesti ve cardiomy opathy 390701053 Active [address]24 [facility] 5 11:56:48 Proteinu júnior 04633958 [facility] 20[facility] 11:02:20 Laborato ry test result abnormal 043277481 Active 2024 [facility] 5 11:09:33 Problem Notes None recorded. Procedures Surgical History Date Name Laterality Status Provider Name and Address Organization Details Recorded Time 06/14/20 19 Colonoscopy completed [facility] 10/26/2023 13:36:17 06/11/20 16 prosthetic arthroplasty of hip completed [facility] 10/26/2023 13:29:44 femoral-poplitea l artery bypass graft completed [facility] 10/26/2023 13:33:38 excision of colon completed [facility] 10/26/2023 13:32:02 section completed [facility] 10/26/2023 13:32:30 complete repair of rotator cuff completed [facility] 10/26/2023 13:33:59 Hysterectomy completed [facility] 10/26/2023 13:35:37 arthroscopy of knee completed [facility] 10/26/2023 13:36:36 Imaging Results None recorded. Procedure Notes None recorded. Medical Equipment None Reported. Allergies Allergen ID Allergen Name Allergen Category Reaction Reaction Severity Criticality Documentation Date Start Date Code Code System Note Provider Name and Address Organization Details Recorded Time 72026 morphine sulfate medicatio n vomiting Not available Not available 04/08/2023 06183 RxNorm React ion: Vomit ing, Hypot ensio n; Comme nt: Recor ded 11/10 9:01A M by Mojgan Ivy RN, Offic e Visit ; Alan moy; Rashi osborne ce: *; ; ROSALINE RAOUL dickerson, [facility] 4 10:40:53 441 morphine medicatio n Not available Not available Not available 12/05/2022 7052 RxNorm Mojgan dickerson, [facility] 3 08:23:36 442 Demerol medicatio n Not available Not available Not available 12/05/2022 21531 1 RxNorm Mojgan dickerson, [facility] 3 08:23:43 Medications Name Sig Start Date Stop Date Status Note LastModified by Organization Details LastModified Time n m vit b-12 shahram 1000mcg 50 DISSOLVE ONE TABLET UNDER THE TONGUE EVERY DAY 10/26 completed Not Available Not Available Not Available amoxicill in 500 mg capsule take 1 capsule BY MOUTH THREE TIMES DAILY UNTIL GONE 12/05 completed Not Available Not Available Not Available furosemid e 40 mg tablet TAKE ONE TABLET BY MOUTH DAILY 05/01 completed Not Available Not Available Not Available isosorbid e dinitrate 10 mg tablet TAKE 1 TABLET BY MOUTH TWICE DAILY 05/01 completed Not Available Not Available Not Available atorvasta tin 40 mg tablet TAKE 1 TABLET BY MOUTH AT BEDTIME active Not Available Not Available No t Available nicotine 14 mg/24 hr daily transderm al patch apply one PATCH TO THE SKIN DAILY 12/05 completed Not Available Not Available Not Available metoprolo l succinate ER 50 mg tablet,ex tended release 24 hr TAKE 1 TABLET BY MOUTH TWICE DAILY 07/24 completed Not Available Not Available Not Available hydrocodo ne 5 mg-acetam inophen 325 mg tablet TAKE 1 TABLET BY MOUTH EVERY 4 TO 6 HOURS NEEDED 04/18 completed Not Available Not Available Not Available isosorbid e mononitra te ER 30 mg tablet,ex tended release 24 hr TAKE ONE TABLET BY MOUTH EVERY DAY 12/05 completed Not Available Not Available Not Available potassium chloride ER 10 mEq tablet,ex tended release TAKE 1 TABLET BY MOUTH EVERY DAY DIRECTED active Not Available Not Available No t Available clopidogr el 75 mg tablet TAKE 1 TABLET BY MOUTH EVERY DAY active Not Available Not Available No t Available aspirin 81 mg tablet,de layed release TAKE 1 TABLET BY MOUTH EVERY DAY 01/21 completed Not Available Not Available Not Available tramadol 50 mg tablet TAKE 1 TABLET BY MOUTH FOUR TIMES DAILY as needed for severe pain FOR TWO DAYS 12/31 completed Not Available Not Available Not Available Macrobid 100 mg capsule Take 1 capsule every 12 hours by oral route for 7 days. 01/29 completed Not Available Not Available Not Available methenami ne hippurate 1 gram tablet TAKE 1 TABLET BY MOUTH TWICE DAILY 01/30 completed Not Available Not Available Not Available potassium chloride ER 20 mEq tablet,ex tended release(p art/cryst ) take one tablet BY MOUTH EVERY DAY 04/18 completed Not Available Not Available Not Available pantopraz ole 40 mg tablet,de layed release TAKE 1 TABLET BY MOUTH EVERY DAY DIRECTED active Not Available Not Available No t Available cyanocoba owen (vit B-12) 1,000 mcg/mL injection solution Inject 1 mL every week by subcutan eous route for 28 days. 06/05 completed Not Available Not Available Not Available isosorbid e dinitrate 20 mg tablet TAKE 1 TABLET BY MOUTH TWICE DAILY 05/01 completed Not Available Not Available Not Available metoprolo l tartrate 50 mg tablet TAKE 1 TABLET BY MOUTH TWICE DAILY 05/29 completed Not Available Not Available Not Available nitroglyc paul 0.4 mg sublingua l tablet DISSOLVE 1 TABLET UNDER THE TONGUE EVERY 5 MINUTES NEEDED FOR CHEST PAIN. DO NOT EXCEED A TOTAL OF 3 DOSES IN 15 MINUTES. active Not Available Not Available No t Available cyanocoba owen (vit B-12) 1,000 mcg sublingua l tablet Place 1 tablet every day by sublingu al route for 90 days. 2024 active Not Available Not Available Not Avai lable lisinopri l 5 mg tablet TAKE 1 TABLET BY MOUTH EVERY DAY 04/18 completed Not Available Not Available Not Available furosemid e 20 mg tablet TAKE 1 TABLET BY MOUTH EVERY DAY active Not Available Not Available No t Available levofloxa davian 750 mg tablet TAKE 1 TABLET BY MOUTH ONCE DAILY FOR 4 DAYS 12/05 completed Not Available Not Available Not Available methylpre dnisolone 4 mg tablets in a dose pack Take as directed on package for 6 days 05/30 completed Not Available Not Available Not Available albuterol sulfate HFA 90 mcg/actua tion aerosol inhaler INHALE TWO PUFFS EVERY 4 HOURS NEEDED FOR SHORTNES S OF BREATH or wheezing active Not Available Not Available No t Available cefdinir 300 mg capsule 01/30 completed Not Available Not Available Not Available fluticaso ne propionat e 50 mcg/actua tion nasal spray,ian pension ADMINIST ER TWO SPRAYS INTO EACH NOSTRIL ONCE DAILY active Not Available Not Available No t Available isosorbid e dinitrate 5 mg tablet TAKE 1 TABLET BY MOUTH TWICE DAILY active Not Available Not Available No t Available doxycycli ne hyclate 100 mg tablet TAKE ONE TABLET BY MOUTH TWICE DAILY FOR 14 DAYS 12/05 completed Not Available Not Available Not Available ipratropi um bromide 21 mcg (0.03 %) nasal spray USE 2 SPRAYS in each nostril UP TO THREE TIMES DAILY as needed for drainage active Not Available Not Available No t Available amoxicill in 875 mg-potass ium clavulana te 125 mg tablet TAKE 1 TABLET BY MOUTH EVERY TWELVE HOURS FOR SEVEN DAYS 05/30 completed Not Available Not Available Not Available Vitamin B-12 1,000 mcg tablet take ONE tablet BY MOUTH daily active Not Available Not Available No t Available nicotine 7 mg/24 hr daily transderm al patch apply one PATCH TO THE SKIN DAILY begin AFTER completi on of SEVEN DAYS of 14mg PATCH 12/05 completed Not Available Not Available Not Available Vitamin C With Erma Hips 1,000 mg tablet TAKE 1 TABLET BY MOUTH TWICE DAILY DIRECTED active Not Available Not Available No t Available Daily-Vit e tablet Take 1 tablet every day by oral route for 90 days. 10/26 completed Not Available Not Available Not Available escitalop nicole 5 mg tablet TAKE 1 TABLET BY MOUTH EVERY DAY active Not Available Not Available No t Available Vitamin C two times daily 10/26 completed 0; Recorded 11/11/19 9:03AM by Mojgan Ivy RN, Office Visit; Not Available Not Available Not Available metoprolo l tartrate two times daily 04/18 completed Recorded 07/12/20 12:00PM by Catalino Sanders MD, Office Visit; Refill Quantity : 60; Tablet; Not Available Not Available Not Available Fluticaso ne Propionat e (Nasal) 10/26 completed 0; Recorded 11/11/19 9:03AM by Mojgan Ivy RN, Office Visit; Not Available Not Available Not Available lisinopri l daily 04/17 completed 436; Recorded 10/19/19 10:32AM by Rosaline Silveira LPN (Authori noe through Catalino Sanders MD), Refill Request; Refill Quantity : 90; Tablet; Not Available Not Available Not Available multivita min with iron 09/24 completed Not Available Not Available Not Available ferrous gluconate 324 mg (38 mg iron) tablet TAKE 1 TABLET BY MOUTH EVERY DAY with vitamin c 500 units active Not Available Not Available No t Available FeroSul 325 mg (65 mg iron) tablet TAKE 1 TABLET BY MOUTH EVERY OTHER DAY 07/28 completed Not Available Not Available Not Available potassium chloride ER 20 mEq tablet,ex tended release TAKE ONE TABLET BY MOUTH DAILY 12/19 completed Not Available Not Available Not Available Entresto 49 mg-51 mg tablet TAKE 1 TABLET BY MOUTH TWICE DAILY active Not Available Not Available No t Available Daily-Vit e (with folic acid) 400 mcg tablet TAKE 1 TABLET BY MOUTH EVERY DAY 2022 active Not Available Not Available Not Avai lable Paxlovid 300 mg (150 mg x 2)-100 mg tablets in a dose pack take all 3 tabs (1 package) by mouth twice daily for 5 days as directed 06/10 completed Not Available Not Available Not Available Vitals Date Recorded Body height Body mass index (BMI) Body weight Body temperature Heart rate Systolic And Diastolic Provider Name and Address Organization Details Last Updated DateTime 5 153.67 cm 17.3 kg/m2 37226.3 1 g 97.2 [degF] 78 /min 120/65 mm[Hg] ROSALINE SILVEIRA [facility] 5 09:07:27 Date Recorded Body height Body mass index (BMI) Body weight Body temperature Oxygen saturation Oxygen saturation in Arterial blood by Pulse oximetry Heart rate Systolic And Diastolic Provider Name and Address Organization Details Last Updated DateTime 5 153.67 cm 17.5 kg/m2 32593.9 1 g 97.4 [degF] 98 % 98 % 65 /min 130/62 mm[Hg] ROSALINE SILVEIRA [facility] 5 11:49:33 Date Recorded Body height Body mass index (BMI) Body weight Respiratory rate Body temperature Systolic And Diastolic Provider Name and Address Organization Details Last Updated DateTime 5 153.67 cm 17.3 kg/m2 83020.3 1 g 16 /min 98.5 [degF] 134/76 mm[Hg] Sudha Hinton [facility] 5 17:00:15 Date Recorded Body height Body mass index (BMI) Body weight Oxygen saturation Oxygen saturation in Arterial blood by Pulse oximetry Heart rate Respiratory rate Systolic And Diastolic Provider Name and Address Organization Details Last Updated DateTime 5 153.67 cm 15.6 kg/m2 16020.9 8 g 94 % 94 % 66 /min 18 /min 122/66 mm[Hg] [facility] 15:05:36 Social History Question Answer Notes LastModified by Vyyo Details LastModified Time Tobacco Smoking Status Current Every Day Smoker ROSALINE SILVEIRA [facility] 10/26/2023 10:52:51 What Was The Date Of Your Most Recent Tobacco Screening? 05/05/2025 [email or web address] Information not available 05/05/2025 What Is Your Current Pack Years? 30ormorepacky ears [email or web address] Information not available 10/26/2023 How Much Tobacco Do You Smoke? 0.25 PPD Information not available 10/26/2023 Sex: Unknown Functional Status Question Answer Note LastModified by Organizat ion Details LastModified Time Do you use any illicit or recreational drugs? No [email or web address] Information not available 10/26/2023 Do you or have you ever used any other forms of tobacco or nicotine? No [email or web address] Information not available 10/26/2023 What is your level of alcohol consumption? None [email or web address] Information not available 10/26/2023 Mental Status None recorded. Family History Relationship Description Onset Age of this Age Resolved Age Notes LastModified by Organization Details LastModified Time Father Malignant neoplasm of pancreas Not available 10/26 10:41:27 Paternal Aunt Malignant neoplasm of lung [email or web address] Not available 10/26 10:41:38 Paternal Aunt Coronary atherosclero sis [email or web address] Not available 10/26 10:41:48 Paternal Aunt Cerebrovascu lar accident [email or web address] Not available 10:41:54 Daughter Factor II deficiency prothr ombin gene mutati on Not available 10/26/2023 10:42:26 Medical History No medical history recorded. Gynecological HistoryNo gynecological history recorded. Obstetrics History GPAL:G 0 P 0 0 0 0 Immunizations Vaccine Type Date Status Note Provider Nam e and Address Organization Details Recorded Time Influenza, split virus, trivalent, preservative 0 completed Not Available [facility] 10/26/2023 10:23:21 pneumococcal polysaccharide PPV23 4 completed Not Available [facility] 10/26/2023 10:23:21 Influenza, split virus, trivalent, preservative 4 completed Not Available [facility] 10/26/2023 10:23:21 Pneumococcal conjugate PCV 13 9 completed Not Available [facility] 10/26/2023 10:23:21 Tdap 9 completed Not Available [facility] 10/26/2023 10:23:21 Influenza, high-dose, quadrivalent, PF 2 completed Mojgan dickerson [facility] 05/01/2023 10:25:46 Influenza, high-dose, quadrivalent, PF 1 completed Mojgan dickerson [facility] 05/01/2023 10:25:46 COVID-19, mRNA, LNP-S, PF, 100 mcg/0.5mL dose or 50 mcg/0.25mL dose 1 completed Mojgan dickerson [facility] 05/01/2023 10:25:46 COVID-19, mRNA, LNP-S, PF, 100 mcg/0.5mL dose or 50 mcg/0.25mL dose 1 completed Mojgan dickerson [facility] 05/01/2023 10:25:46 COVID-19, mRNA, LNP-S, PF, 100 mcg/0.5mL dose or 50 mcg/0.25mL dose 1 completed Mojgan dickerson [facility] 05/01/2023 10:25:46 pneumococcal polysaccharide PPV23 1 completed Mojgan dickerson [facility] 05/01/2023 10:25:46 Influenza, adjuvanted, quadrivalent, PF 3 completed ROSALINE dickerson [facility] 07/24/2023 10:53:45 zoster recombinant 3 completed ROSALINE dickerson [facility] 07/24/2023 10:54:00 zoster recombinant 4 completed ROSALINE dickerson [facility] 10/26/2023 13:38:59 Past Encounters Encounter ID Performer Location Encounter Start Date Encounter Closed Date Diagnosis/Indication Diagnosis SNOMED-CT Code Diagnosis ICD10 Code Diagnosis IMO Codes Diagnosis Note [id number] Catalino Sanders MD [facility] ([facility]) [address] [place] [address] 12/05/2022 08:03:57 12/05/2022 09:30:55 Acute on chronic combined systolic and diastolic heart failure 4638058842 78020 I50.43 Chronic ur inary tract infection 828627376 N39.0 Acute inju ry of kidney 6053756387 8254718 N17.9 History of insertion of stent into ureter 634905387 Z98.890 [id number] Catalino Sanders MD [facility] ([facility]) [address] [place] [id number] 5 12/09/2022 09:40:55 12/19/2022 12:11:53 Acute injury of kidney 2169219385 7042210 N17.9 [id number] Catalino Sanders MD [facility] ([facility]) [address] [place] [address]21-354 5 12/19/2022 09:01:16 12/19/2022 11:30:56 Acute injury of kidney 8242735142 3161115 N17.9 Hyperkalemia 17765514 E8 7.5 labs pending. she will call with bp and hr when she gets home and once i have her bloodwork and her vs i can decide which medication s to reduce and which to not. [id number] Catalino Sanders MD [facility] ([facility]) [address] [place] [address] [id number] 5 01/04/2023 15:13:39 01/04/2023 20:29:41 Acute injury of kidney 9637022916 9057151 N17.9 [id number] HALINA SANDERS PA-C [facility] ([facility]) [address] [place] [address] [id number] 5 02/15/2023 12:52:54 02/15/2023 13:00:58 Anemia 472369692 D64.9 cbc, folic acid, b12, cmp, retic count and hemoccult cards x 3 Acute urin krish tract infection 183267421 N39.0 on IV [employer] Congestive heart failure 99544144 I50.9 [id number] HALINA SANDERS PA-C [facility] ([facility]) [address] [place] [address] [phone] 5 03/01/2023 10:54:28 03/25/2023 20:56:17 Gastrointestinal hemorrhage 46883168 K92.2 CBC ON monday PLAVIX HELD UNTIL Monday HALINA SANDERS PA-C [facility] ([facility]) [address] [place] [id number] 5 03/08/2023 10:42:28 03/23/2023 12:44:54 Acute non-ST segment elevation myocardial infarction 747656199 I21.4 D/C TO HOME WITH CURRENT MEDS, FOLLOW UP WITH DR SANDERS IN 2 WEEKS Upper gastrointestinal bleeding 78585609 K92.89 Chronic ob structive pulmonary disease 74540410 J43.9 [id number] DANICA DAVIS [facility] ([facility]) [address] [place] [address] [id number] 5 04/14/2023 15:49:16 04/25/2023 07:42:24 Swelling of lower leg 510272219 R22.41 Due to unilateral leg swelling, weak pedal and posterior tibial pulses on the rgiht, and 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 Unable to perform US in house today due to US tech being out, and unable to order STAT US outpatient due to referral coordinato rs being out of office. Patient son was agreeable to take patient to ED. Report was called to [facility] ED by JOSE CARLOS Hayes. [id number] HALINA SANDERS PA-C [facility] ([facility]) [address] [place] [address] [id number] 5 04/18/2023 09:19:05 04/18/2023 19:21:52 Coronary arteriosclerosis 89912878 I25.10 her chest pain sound more like anxiety driven. will get her back to see Cardiology . I will increase her isosorbide and send nitro refills in. She is on plavix and ASA. Upper gastrointestinal bleeding 82878032 K92.89 Iron defic iency anemia 87662586 D50.9 recheck labs today. Chronic ob structive pulmonary disease 19597265 J43.9 Congestive heart failure 48106796 I50.21 [id number] Catalino Sanders MD [facility] ([facility]) [address] [place] [id number] 5 05/01/2023 10:15:09 05/01/2023 14:14:00 Normocytic anemia 651653458 D64.9 Heart fail ure with reduced ejection fraction 229213307 I50.9 Moderate m itral valve regurgitation 764509650 I34.0 Cobalamin deficiency 190 727347 E53.8 Iron defic iency anemia 50987427 D50.9 Chronic ob structive pulmonary disease 09794772 J44.9 Chronic ki dney disease stage 3A 409159471 N18.31 Hydronephrosis 16711298 N13.30 [id number] Catalino Sanders MD [facility] ([facility]) [address] [place], [place] [address] 05/02/2023 10:26:25 05/02/2023 11:46:43 Cobalamin deficiency 795560586 E53.8 [id number] DANICA DAVIS [facility] ([facility]) [address] [place], [place] [address] 05/04/2023 10:00:38 05/04/2023 13:46:00 Otalgia of right ear 8563925074 H92.01 Score of 0 on NIHSS scale in clinic today. Patient reassured. TM normal, mild right cervical lymphadeno wing. Encouraged patient to take tylenol and use heat packs PRN. If no improvemen t in numbness of ear in 5-7 days, should follow up with PCP. Encouraged to continue to monitor BP at home and if any SOB or chest pain occurs, should go to ED. Patient and son verbalized understand ing. [id number] Catalino Sanders MD [facility] ([facility]) [address] [place], [place] [phone] 5 05/11/2023 14:35:06 05/21/2023 20:32:51 Disorder of vitamin B12 344730837 E53.8 Anemia 504163080 D64.9 [id number] DANICA DAVIS [facility] ([facility]) [address] [place], [place] [address] 05/19/2023 15:03:17 06/13/2023 04:03:39 Disorder of vitamin B12 857313528 E53.8 nurse visit, injection only [id number] Catalino Sanders MD [facility] ([facility]) [address] [place] [id number] 5 05/25/2023 12:22:40 05/25/2023 13:33:23 Cobalamin deficiency 552571198 E53.8 [id number] Catalino Sanders MD [facility] ([facility]) [address] [place] [address] [id number] 5 06/01/2023 08:49:17 06/01/2023 11:42:26 Generalized anxiety disorder 67633096 F41.1 [id number] Catalino Sanders MD [facility] ([facility]) [address] [place] [address] [id number] 5 07/24/2023 09:23:09 07/24/2023 11:02:12 Gastroesophageal reflux disease 609949499 K21.9 Acute non- ST segment elevation myocardial infarction 302846697 I21.4 Chronic di astolic heart failure 514093040 I50.32 History of myocardial infarction 301729746 I25.2 History of insertion of stent into ureter 538275882 Z98.890 History of malignant neoplasm of cervix 818769124 Z85.41 last tx 2018 Cobalamin deficiency 190 030702 E53.8 Anemia 044944962 D64.9 [id number] Catalino Sanders MD [facility] ([facility]) [address] [place] [address] [id number] 5 10/26/2023 10:23:01 10/26/2023 11:38:51 Chronic diastolic heart failure 789324721 I50.32 History of myocardial infarction 346291165 I25.2 Chronic ob structive pulmonary disease 34863644 J44.9 Peripheral vascular disease 324551113 I73.9 Nicotine dependence 5629 4008 F17.200 Essential hypertension 44639724 I10 Hypertensi ve heart AND chronic kidney disease with congestive heart failure 1082189204 9107 I13.0 Major depr essive disorder 703021224 F32.9 Chronic diarrhea 0262419 09 K52.9 add fiber supplement [id number] Catalino Sanders MD [facility] ([facility]) [address] [place] [address] [id number] 5 11/09/2023 10:26:15 11/09/2023 11:26:08 Chronic colitis 24518507 K52.9 Chronic ki dney disease stage 3A 222398149 N18.31 Chronic sy stolic heart failure 630984108 I50.22 reviewed recent echo ef down to 22% Diarrhea 95415603 R19.7 [id number] Catalino Sanders MD [facility] ([facility]) [address] [place] [address] [id number] 5 11/15/2023 08:49:43 11/16/2023 10:44:25 Iron deficiency anemia 78616120 D50.9 Hypertensi ve heart AND chronic kidney disease with congestive heart failure 3385691704 9107 I13.0 [id number] Catalino Sanders MD [facility] ([facility]) [address] [place] [address] [id number] 5 11/16/2023 08:51:47 11/16/2023 10:23:04 [id number] Catalino Sanders MD [facility] ([facility]) [address] [place] [address] [id number] 5 12/26/2023 10:23:47 12/26/2023 12:17:17 Osteonecrosis of hip 418024740 M87.859 we cannot replace the hop with the heart evaluation still pending etc. will try to expedite thisrecomm end powered wheelchair and will start her evaluation . Leg length inequality 45 596415 M21.70 will refer Heart fail ure with reduced ejection fraction 804085960 I50.9 will request that her stress test be completed as results are not available 11 days later. History of insertion of stent into ureter 353193331 Z98.890 still awaiting urology to schedule her appointmen t. started in july. History of malignant neoplasm of cervix 022407514 Z85.41 obgyn hospitalist physician notes they were to f/u with her after ct. she is unaware of any contact thus far. so we will try to assist with getting that set up. 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 The farther that she has to walk, it becomes very difficult. She lives in an apartment, which has a long hallway that she has to walk down. She reports that walking more than 25 feet becomes extremely difficult. Patient does not have the upper body strength to propel herself in a manual wheelchair . She lives by herself and does not have a caregiver that can help her. She does have the physical and mental abilities to transfer into a power wheelchair and to safely operate it in the home. A power scooter would not meet the needs in the patients home as it would not be able to be maneuvered in the patients home like a power wheelchair would. Her home does not provide adequate access between rooms for the power scooter. Patient has the physical and mental abilities to operate a power wheelchair safely in the home. Patient has a mobility limitation that significan tly impairs her ability to participat e in ADLs. Her mobility limitation cannot be sufficient ly and safely resolved by the use of a walker. Patient's home provides adequate access between rooms and maneuverin g space for a power wheelchair . Use of a power wheelchair will significan tly improve the patient's ability to participat e in ADLs and she will use it in the home. She has expressed a willingnes s to use a power wheelchair in the home. Will need on-site home evaluation through PT Leg length inequality 45 306284 M21.70 Chronic di astolic heart failure 596945272 I50.32 Chronic ob structive pulmonary disease 94697754 J44.9 Heart fail ure with reduced ejection fraction 692814291 I50.9 Peripheral vascular disease 209383841 I73.9 [id number] Catalino Sanders MD [facility] ([facility]) [address] [place] [address] [id number] 5 01/19/2024 11:25:39 01/22/2024 08:26:37 Serum creatinine above reference range 912781358 R79.89 Anemia 149328197 D64.9 [id number] Catalino Sanders MD [facility] ([facility]) [address] [place] [address] [id number] 5 01/22/2024 09:05:38 01/22/2024 11:35:20 Serum creatinine above reference range 447752550 R79.89 Anemia 269264383 D64.9 [id number] Catalino Sanders MD [facility] ([facility]) [address] [place] [address] [id number] 5 01/22/2024 09:05:21 01/22/2024 13:22:00 Anemia 178111283 D64.9 Disorder o f vitamin B12 365340139 E53.8 Essential hypertension 50037717 I10 [id number] Catalino Sanders MD [facility] ([facility]) [address] [place] [address] [id number] 5 01/31/2024 10:31:15 01/31/2024 12:42:44 [id number] Catalino Sanders MD [facility] ([facility]) [address] [place] [address] [id number] 5 03/06/2024 09:08:53 03/07/2024 10:12:24 Anemia 165259755 D64.9 [id number] Catalino Sanders MD [facility] ([facility]) [address] [place] [address] 94794-414 5 03/13/2024 10:54:44 03/16/2024 07:20:33 Chronic kidney disease stage 3B 651872301 N18.32 Chronic sy stolic heart failure 068214171 I50.22 reviewed recent echo ef down to 22% most recent back up to 40%she will see cardiology in 3 plus weeks. [id number] Catalino Sanders MD [facility] ([facility]) [address] [place] [address] [id number] 5 05/30/2024 09:29:52 05/30/2024 10:13:51 COVID-19 544545372 U07.1 she was prescribed paxlovid at the [facility] pos. by PCR.sx c/w covid.\pro gressing quite well however needs to increase calorie intake. d/c steroidcom plete paxlovid [id number] Catalino Sanders MD [facility] ([facility]) [address] [place] [address] [id number] 5 06/06/2024 09:05:39 06/07/2024 10:33:16 Iron deficiency anemia 41763433 D50.9 Chronic ki dney disease stage 3B 219516969 N18.32 [id number] Catalino Sanders MD [facility] ([facility]) [address] [place] [address] [id number] 5 06/13/2024 10:38:41 06/13/2024 11:52:35 Chronic diastolic heart failure 614581200 I50.32 Chronic ki dney disease stage 3B 235480526 N18.32 History of myocardial infarction 202822074 I25.2 Hypertensi ve heart AND chronic kidney disease with congestive heart failure 0641407791 9107 I13.0 Heart fail ure with reduced ejection fraction 979595149 I50.42 Ischemic c ongestive cardiomyopathy 334235497 I25.5 [id number] NIKOLE HUYNH [facility] ([facility]) [address] [place] [address] 5 09/13/2024 14:14:30 09/13/2024 15:27:14 Pain in left foot 2669608436 15415 M79.672 Possible arterial occlusion. WIll send to ER for further evaluation and treatment. [id number] Catalino Sanders MD [facility] ([facility]) [address] [place] [address] 5 09/24/2024 09:07:10 09/24/2024 09:40:55 Fall in home 73824681 Y92.009 Hematoma of face 7463309 01 S00.83XD no sign of neurologic sequelae Neutropenia 840694632 D7 0.9 Alkaline p hosphatase above reference range 306928106 R74.8 Macrocytos is - no anemia 603313303 D75.89 Acute kidney injury 1466 9001 N17.9 Iron deficiency 02062386 E61.1 [id number] Catalino Sanders MD [facility] ([facility]) [address] [place] [address] 5 10/09/2024 09:00:19 10/09/2024 14:27:04 Cobalamin deficiency 514177290 E53.8 Free immun oglobulin light chain above reference range 9956479018 4 R89.4 [id number] Catalino Sanders MD [facility] ([facility]) [address] [place] [address] [id number] 5 12/31/2024 10:21:18 12/31/2024 14:04:39 Osteonecrosis of hip 005369944 M87.859 Chronic di astolic heart failure 759401049 I50.32 Chronic ob structive pulmonary disease 38142736 J44.9 Heart fail ure with reduced ejection fraction 549169298 I50.9 Peripheral vascular disease 710628097 I73.9 Chronic ki dney disease stage 3B 707925945 N18.32 History of myocardial infarction 798516927 I25.2 Hypertensi ve heart AND chronic kidney disease with congestive heart failure 5114416635 9107 I13.0 Ischemic c ongestive cardiomyopathy 254017244 I25.5 Anemia 166140134 D64.9 Nicotine dependence 5629 4008 F17.200 Essential hypertension 56568935 I10 Chronic sy stolic heart failure 537178312 I50.22 reviewed recent echo ef down to 22% most recent back up to 40%she will see cardiology tomorrow. History of malignant neoplasm of cervix 717309492 Z85.41 she has an apt tomorrow with her gynecologi st for surveillan ce Major depr essive disorder 284299173 F32.9 Monoclonal gammopathy of uncertain significance 921931629 D47.2 [id number] Catalino Sanders MD [facility] ([facility]) [address] [place] [address] [id number] 5 01/03/2025 12:06:46 01/06/2025 13:02:28 Anemia 997037257 D64.9 Chronic di astolic heart failure 398061569 I50.32 Chronic ki dney disease stage 3B 167736335 N18.32 Disorder o f vitamin B12 148816774 E53.8 Essential hypertension 22907816 I10 Hypertensi ve heart AND chronic kidney disease with congestive heart failure [id number] I13.0 [id number] NIKOLE CARRANZA [facility] ([facility]) [address] [place] [phone] 01/15/2025 16:45:29 01/21/2025 08:11:43 Dysuria [id number] R30.0 [id number] Acute urin krish tract infection [id number] N39.0 [id number] UA results reviewed and discussed with pt. We will start antibiotic s. Pt will increase oral fluids and can use cranberry. Return to office with no improvemen t or any problems. Go to ER with severe worsening or severe problems.W e will obtain urine culture [id number] NIKOLE CARRANZA [facility] ([facility]) [address] [place] [phone] 05/05/2025 14:46:50 05/05/2025 15:13:09 Health Concerns Section Related Observation LastModified by Organization Detai ls LastModified Time None Recorded Concern Status LastModified by Organization Details LastModified Time None Recorded Advance Directives Directive None Recorded Payers Insurance Date Sequence Insurance Name Policy Number Policy Siddiqi Covered Member ID Siddiqi Member ID Guarantor Name 05/05/2025 2 [place] Denia Gerardo [id number] Denia Gerardo 05/05/2025 1 [facility] (MEDICARE REPLACEMENT/A DVANTAGE - HMO) Denia Gerardo [id number] Denia Gerardo 05/05/2025 [place] [facility] Denia Gerardo [id number] Denia Gerardo Notes Date Note Type Note Provider Name and Address Organization Details Recorded Time 10/09/2024 text/html Lab f/u: Patient is here to discuss recent labs b-12 deficiency: Current symptoms include fatigue, but does blame this on a pet that keeps her awake. Catalino Sanders MD [address] [place] [address], [phone], [facility], L.LAmariCAmari 10/09/2024 09:33:52 12/31/2024 text/html Weight LossRepor farzaneh by PatientHPIFor associated symptoms, patient reportsdiarrheaandco nstipation. For quality, patient reportsstable. For duration, patient reportsgradual onset.patient reports that both her home health agency and her urologists office were concerned that she is at risk. Pt reports that she eats all of the time and just doesn't gain weight. She reports that she does not feel sick at all. Son verified that she is eating well also. She also has a person that comes into her home and makes sure she has groceries and meals made. She is also drinking a boost after each meal. her son reports that sometimes she has forgotten to take her medication. her aide and nurse monitor her medication. her son will go and supervise the process. her bmi has decreased due to decreasing height, stable weight loss much of which was due to fluid diuresis due to her exacerbation of chf.ROS as noted in the HPI she just had her stent replaced and has a f/u in march with renal u/s prior Catalino Sanders MD [address] [place], [phone], [facility], [place]. 12/31/2024 12:38:19 01/15/2025 text/html Lower Urinary Tr act Symptoms (LUTS)Reported by PatientROS as noted in the HPI walk in patientpatient is here today for blood in her urine and right side lower back pain that started about 4 hours ago. No meds taken for this. Denies fever, weakness, vomiting. NIKOLE CARRANZA [address] [place], [phone], [facility], [place]. 01/16/2025 12:14:13 05/05/2025 text/html walk in patientpatient is here today for large amount of blood coming out her rectum and blood in her urinePatient was seen in the ER on 04/28/25 for a UTI for the blood in er urine but then today she started having a lot of bleeding coming from her rectum. Patient over is weak and dizzy also that started today. Sudha dickerson, [facility], [place]. 05/05/2025 15:11:17 OBGyn Episode No OBEpisode recorded.
--- NOTE | 2025-06-16 19:05 | XRR_ITS ---
PROCEDURE INFORMATION: Exam: XR Chest Exam date and time: 06/16/2025 7:12 PM Age: 79 years old Clinical indication: Shortness of breath; Additional info: SOB TECHNIQUE: Imaging protocol: Radiologic exam of the chest. Views: 1 view. COMPARISON: CR XR chest 1V portable [id number] 05/26/2024 11:32 PM FINDINGS: Lungs: Hyperinflation. Probable COPD. Pleural spaces: Unremarkable. No pleural effusion. No pneumothorax. Heart/Mediastinum: Unremarkable. No cardiomegaly. Vasculature: Aortic atherosclerosis. Bones/joints: Unremarkable. XR/XR chest 1V portable [id number] IMPRESSION: No acute findings.
--- NOTE | 2025-06-16 19:22 | ED_ITS ---
HPI - SOB/Dyspnea 2 General: Chief Complaint: Shortness of Breath/Dyspnea Stated Complaint: dificulty breathing Time Seen by Provider: 06/16/25 18:44 Source: patient and old records reviewed Mode of arrival: EMS Limitations: no limitations History of Present Illness: HPI Narrative: Patient is a 79-year-old female with past medical history of congestive heart failure, COPD, CAD, cardiomyopathy, and NSTEMI who presents to the emergency department by ambulance complaining of difficulty breathing for the past day. She also notes that she has had a productive cough, and has roommate/adjacent neighbor that has had similar symptoms. She is not reporting any fevers or nausea/vomiting, but does state that she has had watery diarrhea all day. She notes that she has had COVID in the past and this also feels similar. She endorses fatigue. No syncope, dizziness, lightheadedness, headache, peripheral edema, or other symptoms reported at this time. She does not use home oxygen. Currently at this time she is 100% SpO2 on room air. States that her shortness of breath worsens with deep breathing and exertion. No other symptoms are reported at this time. MD elicited complaint: shortness of breath Pertinent past history: COPD and congestive heart failure Onset (ago): day(s) Timing: constant Severity: similar to previous episodes Exacerbating factors: exertion and deep breaths Known history of: COPD and congestive heart failure Associated symptoms: Deny abdominal pain, chest pain, fever(s), lightheadedness, nausea, palpitations or vomiting Related Data Home Medications ?Medication ?Instructions ?Recorded ?Confirmed fluticasone propionate 50 1 spray intranasal DAILY@07/26/22 02/26/25 mcg/actuation nasal spray,suspension (Flonase Allergy Relief) multivitamin 1 tab PO DAILY@01/23/23 0 02/26/25 potassium chloride 10 mEq 10 meq PO DAILY@02/03/23 02/26/25 tablet,extended release (Klor-Con) atorvastatin 40 mg tablet 40 mg PO BEDTIME@03/02/23 02/26/25 clopidogrel 75 mg tablet 75 mg PO [facility] 03/02/23 pantoprazole 40 mg tablet,delayed 40 mg PO DAILY@02/26/25 release escitalopram oxalate 5 mg tablet 5 mg PO [facility] 01/18/24 02/26/25 metoprolol tartrate 50 mg tablet 50 mg PO BID 01/18/24 02/26/25 acetaminophen 325 mg tablet 650 mg PO QID PRN Pain 02/26/25 ascorbic acid (vitamin C) 500 mg 250 mg PO QAM 4 02/26/25 tablet (Vitamin C) ferrous gluconate 324 mg (38 mg 324 mg PO DAILY 02/26/25 iron) tablet furosemide 20 mg tablet (Lasix) 20 mg PO QAM 09/10/24 02/26/25 nitrofurantoin PO 01/28/25 02/26/25 monohydrate/macrocrystals 100 mg capsule Previous Rx's ?Medication ?Instructions ?Recorded nitroglycerin 0.4 mg sublingual 0.4 mg sublingual Q5M PRN chest 10/20/22 tablet pain #25 tabs albuterol sulfate 90 mcg/actuation 2 inh inhalation Q4 H PRN shortness 05/27/24 aerosol inhaler of breath or wheezing #6.7 g ford sacubitril 49 mg-valsartan 51 mg 1 tab PO BID #90 tabs 11/05/24 tablet doxycycline hyclate 100 mg tablet 100 mg PO BID 10 day s #20 tabs 06/16/25 prednisone 20 mg tablet 60 mg (3 x 20 mg) PO ONCE 5 days 06/16/25 #15 tabs Allergies Allergy/AdvReac Type Severity Reaction Status Date / Time meperidine (From Demerol) Allergy Unknown Unknown Verified 05/05/25 14:36 morphine Allergy Unknown Unknown Verified 05/05/25 14:36 Review of Systems 2 General: Reports: 10 or more systems reviewed and unremarkable except in HPI and below Const: Reports: fatigue; Denies: fever(s) or chills Eyes: Denies: change in vision ENMT: Denies: throat pain, ear or mastoid pain or nasal discharge Card: Denies: chest pain, palpitations, swelling of feet/ankles or lightheadedness Resp: Reports: dyspnea, productive cough and wheezing GI: Reports: diarrhea; Denies: abdominal pain, nausea, vomiting or constipation : Denies: flank pain, difficulty voiding, dysuria or urinary frequency Musc: Denies: neck pain, back pain or joint pain Skin/Breast: Denies: rash Neuro: Denies: headache(s), numbness in extremities or weakness in extremities PFSH ED 2 PFSH: Medical History Systolic CHF Acute CHF (congestive heart failure) GI bleed Upper gastrointestinal hemorrhage Acute anemia Elevated troponin Hip pain Heart failure Acute exacerbation of chronic obstructive pulmonary disease Dehydration Fall Respiratory failure with hypoxia and hypercapnia Lactic acidosis Cardiogenic shock UTI (urinary tract infection) Cystitis Heart failure, systolic, with acute decompensation CAD (coronary artery disease) COPD (chronic obstructive pulmonary disease) Tobacco abuse Peripheral arterial disease Dyslipidemia Essential hypertension Cardiomyopathy Hypoxia Acute systolic CHF (congestive heart failure) NSTEMI (non-ST elevated myocardial infarction) Elevated troponin Elevated troponin I level Emphysema lung Bacteriuria Pyuria Extrinsic ureteral obstruction Urinary incontinence Retained ureteral stent Surgical History H/O total hip arthroplasty right H/O shoulder surgery H/O arthroscopic knee surgery bilateral History of colon surgery H/O: H/O: hysterectomy H/O oral surgery Family History Mother , at age 79 Hypertension Peripheral artery disease Diabetes Father , at age 47 Cancer pancreatic and lung Social History Smoking and tobacco/nicotine status: current every day tobacco/nicotine user (0.5 ppd or less) Physical Exam 2 Const: COMMON NORMALS: patient oriented x3 GENERAL APPEARANCE: cooperative NUTRITIONAL APPEARANCE: cachectic ORIENTATION/CONSCIOUSNESS: Yes awake, Yes oriented to person, Yes oriented to place and Yes oriented to time OTHER: Actively coughing, no severe respiratory distress HENMT: COMMON NORMALS: normocephalic, atraumatic and hearing grossly normal bilaterally HEAD & SCALP: normocephalic and atraumatic Eye: COMMON NORMALS: Equal, round and reactive pupils present, EOMs intact bilaterally and conjunctivae normal CONJUNCTIVA: Yes conjunctivae normal P UPIL: Yes Equal, round and reactive pupils present Neck/C-Spine: COMMON NORMALS: full ROM and supple Resp: COMMON NORMALS: No retractions, No use of accessory muscles and clear to auscultation bilaterally EFFORT & INSPECTION: Yes tachypneic and Yes Actively coughing productive AUSCULTATION: clear to auscultation bilaterally Cardio: COMMON NORMALS: regular rate, regular rhythm, No clicks present (Cardio), No murmurs present (Cardio) and No rub (Cardio) RATE: regular rate RHYTHM: regular rhythm GI: COMMON NORMALS: Normal to inspection, nondistended, normoactive bowel sounds present, Soft to palpation and non-tender AUSCULTATION: Yes normoactive bowel sounds PALPATION: Yes Soft to palpation RECTAL EXAM: d eferred Extremity: COMMON NORMALS: normal to inspection, full ROM and capillary refill normal Neuro: COMMON NORMALS: patient oriented x3, moves all extremities, no focal motor deficits and no sensory deficits noted SENSORIUM/ORIENTATION: Yes oriented to person, Yes oriented to place and Yes oriented to time Psych: COMMON NORMALS: mental status grossly normal and Normal thought process present THOUGHT PROCESS: Normal thought process present Skin: COMMON NORMALS: no rashes or lesions noted GENERAL SKIN EXAM: no rashes or lesions noted Course 2 Vital Signs: Vital signs: Vital Signs Temperature 97.9 F 06/16/25 18:42 Pulse Rate 83 06/16/25 21:18 Respiratory Rate 22 H 06/16/25 19:45 Blood Pressure 129/66 06/16/25 21:18 Pulse Oximetry 93 06/16/25 21:18 Oxygen Delivery Me thod Room Air 06/16/25 21:18 MDM - SOB/Dyspnea Medical Decision Making Patient presenting here by ambulance for reports of shortness of breath and a productive cough, she has multiple comorbidities. On exam there is no adventitious lung sounds though she is a cachectic/ill-appearing female who is tachypneic with no other severe signs of respiratory distress. The chest x-ray shows no acute findings, her D-dimer was positive so CTA ordered which does not show any pulmonary embolism but shows some mucous plugging versus early bronchitis likely from an underlying history of COPD. Her BNP is greater than 10,000 which is not significantly unchanged from her baseline, her delta troponin is negative, and she does not appear clinically fluid overloaded. She notes significant relief after DuoNeb therapy here, I suspect a COPD exacerbation with her oxygenation maintaining well on room air she is stable for discharge home with outpatient therapy. We will begin her on doxycycline and prednisone, and she is given strict return precautions back to the emergency department if she continues to have deterioration at home. Patient agrees with this plan. Lab Data 06/16/25 19:39 06/16/25 19:39 Labs/Radiology: Radiology Impressions Chest X-Ray 06/16/25 19:05 IMPRESSION: No acute findings. Chest CTA 06/16/25 20:34 IMPRESSION: 1. No definite significant pulmonary embolism or right heart strain. 2. Mucous plugging and slightly thickened bronchi of the left lower lobe, possibly early bronchitis. No definite acute consolidation. Laboratory Results WBC 3.62 10^3/uL (3.29-11.43) 06/16/25 19:39 RBC 3.60 10^6/uL (3.85-5.65) L 06/16/25 19:39 Hgb 11.40 g/dL (11.27-16.99) 06/16/25 19:39 Hct 35.5 % (36-47) L 06/16/25 19:39 MCV 98.6 fl (85-98) H 06/16/25 19:39 MCH 31.7 pg (27-33) 06/16/25 19:39 MCHC 32.1 g/dL (30-55) 06/16/25 19:39 RDW 13.1 % (12.1-15.1) 06/16/25 19:39 Plt Count 195 10^3/cmm (157-399) 06/16/25 19:39 MPV 9.3 fL (7.4-10.4) 06/16/25 19:39 Neut % (Auto) 62.1 % 06/16/25 19:39 Lymph % (Auto) 23.5 % 06/16/25 19:39 [place] % (Auto) 9.7 % 06/16/25 19:39 Eos % (Auto) 3.6 % 06/16/25 19:39 Baso % (Auto) 0.8 % 06/16/25 19:39 Neut # (Auto) 2.25 10^3/uL (1.8-7.7) 06/16/25 19:39 Lymph # (Auto) 0.9 10^3/uL (0.8-4.8) 06/16/25 19:39 [place] # (Auto) 0.4 10^3/uL (0.2-0.9) 06/16/25 19:39 Eos # (Auto) 0.1 10^3/uL (0.0-0.8) 06/16/25 19:39 Baso # (Auto) 0.0 10^3/uL (0.0-0.1) 06/16/25 19:39 Nucleated RBC % (auto) 0 % 06/16/25 19:39 Nucleated RBCs # 0.0 /100WBC 06/16/25 19:39 D-Dimer 1.07 ug/mLFEU (0-0.59) H 06/16/25 19:39 Sodium 140 mmol/L (136-145) 06/16/25 19:39 Potassium 4.5 mmol/L (3.5-5.1) 06/16/25 19:39 Chloride 104 mmol/L (98-107) 06/16/25 19:39 Carbon Dioxide 21 mmol/L (22-29) L 06/16/25 19:39 Anion Gap 19.5 (5-19) H 06/16/25 19:39 BUN 25 mg/dL (8-23) H 06/16/25 19:39 Creatinine 1.5 mg/dL (0.5-0.9) H 06/16/25 19:39 GFR Calculation Not Reportable 06/16/25 19:39 Glucose 94 mg/dL (65-115) 06/16/25 19:39 Calculated Osmolality 294 mOsm/kg (285-295) 06/16/25 19:39 Lactic Acid 1.4 mmol/L (0.5-2.2) 06/16/25 19:39 Calcium 9.4 mg/dL (8.5-10.5) 06/16/25 19:39 Total Bilirubin 0.2 mg/dL (0.15-1.2) 06/16/25 19:39 AST 17 U/L (0-32) 06/16/25 19:39 ALT 8 U/L (0-33) 06/16/25 19:39 Alkaline Phosphatase 107 U/L (35-105) H 06/16/25 19:39 Troponin T Baseline 25 ng/L (0-10) H 06/16/25 19:39 NT-Pro-B Natriuret Pep 95099 pg/mL (0-450) H 06/16/25 19:39 Total Protein 6.4 g/dL (6.6-8.7) L 06/16/25 19:39 Albumin 4.4 g/dL (3.5-5.2) 06/16/25 19:39 Globulin 2.0 g/dL (1.3-4.6) 06/16/25 19:39 Procalcitonin 0.08 ng/mL (0-0.5) 06/16/25 19:39 Urine Color Yellow (Yellow) 06/16/25 21: Urine Appearance Clear (CLEAR) 06/16/25 21:06 Urine pH 6.5 (5-7) 06/16/25 21:06 Ur Specific [place] 1.008 (1.005-1.030) 06/16/25 21: Urine Protein Negative (Negative) 06/16/25 21: Urine Glucose (UA) Negative (Normal) 06/16/25 21: Urine Ketones Negative (Negative) 06/16/25 21: Urine Blood Negative (Negative) 06/16/25 21: Urine Nitrate Negative (Negative) 06/16/25 21: Urine Bilirubin Negative (Negative) 06/16/25 21: Urine Urobilinogen 0.2 mg/dL (Negative) 06/16/25 21:06 Ur Leukocyte Esterase 2+ (Negative) A 06/16/25 21:06 Urine RBC 0-4 /hpf (0-2) H 06/16/25 21:06 Urine WBC 15-25 /hpf (0-5) H 06/16/25 21:06 Ur Squamous Epith Cells 0-4 /hpf (0-5) H 06/16/25 21:06 Ur Transition Epith Cell 0-4 /hpf 06/16/25 21:06 Amorphous Sediment Not Reportable 06/16/25 21: Urine Bacteria Trace /hpf (NONE) 06/16/25 21:06 Urine Yeast 1+ /hpf H 06/16/25 21:06 Influenza A (PCR) Negative (Negative) 06/16/25 19:42 Influenza Type B (PCR) Negative (Negative) 06/16/25 19:42 RSV (PCR) Negative (Negative) 06/16/25 19:42 SARS-CoV-2 (PCR) Negative (Negative) 06/16/25 19:42 All radiology interpretation(s) finalized by discharge Discharge Plan Discharge Patient Disposition: Home Clinical Impression: COPD exacerbation Condition: Stable Prescriptions: New doxycycline hyclate 100 mg tablet 100 mg PO BID 10 Days Qty: 20 0RF prednisone 20 mg tablet 60 mg PO ONCE 5 Days Qty: 15 0RF No Action nitroglycerin 0.4 mg tablet, sublingual 0.4 mg sublingual Q5M PRN (Reason: chest pain) Qty: 25 3RF Rx Instructions: do not exceed 3 doses per episode fluticasone propionate [Flonase Allergy Relief] 50 mcg/actuation spray,suspension 1 spray intranasal DAILY@07 Rx Instructions: administer into each nostril nitrofurantoin monohyd/m-cryst 100 mg capsule PO sacubitril-valsartan 49-51 mg tablet 1 tab PO BID Qty: 90 3RF multivitamin Tablet 1 tab PO DAILY@07 potassium chloride [Klor-Con 10] 10 mEq Tablet Extended Release 10 meq PO DAILY@07 atorvastatin 40 mg tablet 40 mg PO BEDTIME@19 clopidogrel 75 mg tablet 75 mg PO QAM pantoprazole 40 mg tablet,delayed release (DR/EC) 40 mg PO DAILY@07 albuterol sulfate 90 mcg/actuation HFA aerosol inhaler 2 inh INHALATION Q4H PRN (Reason: shortness of breath or wheezing) Qty: 6.7 1RF metoprolol tartrate 50 mg tablet 50 mg PO BID escitalopram oxalate 5 mg tablet 5 mg PO QAM acetaminophen 325 mg Tablet 650 mg PO QID PRN (Reason: Pain) ascorbic acid (vitamin C) [Vitamin C] 500 mg Tablet 250 mg PO QAM ferrous gluconate 324 mg (38 mg iron) tablet 324 mg PO DAILY furosemide [Lasix] 20 mg tablet 20 mg PO QAM Discharge Orders: Discharge ED (Routine); Ordered 06/16/25 Ordered By: Wallace Mary Referrals: Catalino Sanders MD [Primary Care Provider, Family Practice] Patient Instructions: Patient Portal & Shania Instructions Activity Restrictions/Additional Instructions: COPD Exacerbation Discharge You are being discharged after treatment for a COPD (chronic obstructive pulmonary disease) exacerbation. Please follow these instructions carefully to help your recovery: Medications: - Doxycycline: Take 1 tablet (as prescribed) twice daily for 10 days. Finish the entire course, even if you feel better. Common side effects include stomach upset, diarrhea, and sun sensitivity. If you develop a rash, severe diarrhea, or trouble breathing, contact your doctor immediately. - Prednisone: Take 60 mg once daily for 5 days. Take with food to reduce stomach upset. Prednisone may cause increased appetite, trouble sleeping, mood changes, or elevated blood sugar. If you have diabetes, monitor your blood sugar closely. - Continue your regular inhalers and use your rescue inhaler (such as albuterol) as needed for shortness of breath. What to Expect: - You should start to feel better within a few days. If symptoms worsen or do not improve, contact your healthcare provider. - It is normal to have some cough and sputum. If your sputum becomes much thicker, darker, or you develop a fever, call your doctor. When to Seek Help: - Call 911 or go to the emergency room if you have: - Severe shortness of breath at rest - Chest pain - Blue lips or fingers - Confusion or trouble waking up - Severe swelling in your legs Follow-Up: - Schedule a follow-up appointment within 1-2 weeks to review your recovery and medications. - Bring a list of all your medications to your appointment. Other Instructions: - Avoid smoking and exposure to lung irritants. - Wash your hands often and avoid sick contacts to reduce infection risk. - Stay hydrated and eat a balanced diet. If you have any questions or concerns, contact your healthcare provider. Print Language: Hebrew Coding Level of Care Code ED Town Planner for Isi Calhoun
[2025-06-16 19:48] LABS: Hematocrit 35.5 % (36-47); Hemoglobin 11.40 g/dL (11.27-16.99); Mean Corpuscular HGB Conc 32.1 g/dL (30-55); Mean Corpuscular Hemoglobin 31.7 pg (27-33); Mean Corpuscular Volume 98.6 fl (85-98); Nucleated Red Blood Cells % 0 %; Platelet Count 195 10^3/cmm (157-399); Red Blood Count 3.60 10^6/uL (3.85-5.65); White Blood Count 3.62 10^3/uL (3.29-11.43)
--- NOTE | 2025-06-16 19:57 | ECG_ITS ---
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 Measurements Intervals Frost Rate: 74 P: 66 CO: 175 QRS: 65 QRSD: 100 T: 62 QT: 409 QTc: 456 Interpretive Statements SINUS RHYTHM LEFT VENTRICULAR HYPERTROPHY AND ST-T CHANGE [VOLTAGE CRITERIA PLUS ST/T ABNORMALITY] Compared to ECG 01/18/2024 12:50:41 Left ventricular hypertrophy now present ST (T wave) deviation now present Sinus bradycardia no longer present T-wave abnormality no longer present Possible ischemia no longer present Electronically Signed On 06-16-2025 23:22:40 CDT by David Horne M.D. [email or web address]
[2025-06-16 20:05] LABS: Lactic Sepsis W/Reflex 1.4 mmol/L (0.5-2.2)
[2025-06-16 20:15] LABS: NT Pro B Type Natriuretic Pept 10682 pg/mL (0-450); Procalcitonin 0.08 ng/mL (0-0.5)
[2025-06-16 20:26] LABS: Alanine Aminotransferase 8 U/L (0-33); Albumin Level 4.4 g/dL (3.5-5.2); Alkaline Phosphatase 107 U/L (35-105); Anion Gap 19.5 (5-19); Aspartate Amino Transferase 17 U/L (0-32); Blood Urea Nitrogen 25 mg/dL (8-23); Calcium 9.4 mg/dL (8.5-10.5); Carbon Dioxide 21 mmol/L (22-29); Chloride 104 mmol/L (98-107); Creatinine Clr Calc Pharmacy 21.0240; Globulin 2.0 g/dL (1.3-4.6); Glucose 94 mg/dL (65-115); Osmolality Calculated 294 mOsm/kg (285-295); Potassium 4.5 mmol/L (3.5-5.1); Sodium 140 mmol/L (136-145); Total Protein 6.4 g/dL (6.6-8.7)
--- NOTE | 2025-06-16 20:34 | CTR_ITS ---
PROCEDURE INFORMATION: Exam: CTA Chest With Contrast Exam date and time: 06/16/2025 9:46 PM Age: 79 years old Clinical indication: Abnormal findings; Abnormal diagnostic tests; Elevated d-dimer; Shortness of breath; Additional info: Sob/dimer + TECHNIQUE: Imaging protocol: Computed tomographic angiography of the chest with contrast. Exam focused on the arteries. 3D rendering (Not supervised by radiologist): MIP and/or 3D reconstructed images were created by the technologist. Radiation optimization: All CT scans at this facility use at least one of these dose optimization techniques: automated exposure control; mA and/or kV adjustment per patient size (includes targeted exams where dose is matched to clinical indication); or iterative reconstruction. Contrast material: OMNI 350; Contrast volume: 62 ml; Contrast route: INTRAVENOUS (IV); COMPARISON: CT angio chest PE protcl [id number] 07/06/2022 1:44 AM RADIATION DOSE METRICS: Total DLP (mGy-cm): 124.86 FINDINGS: Tubes, catheters and devices: Right nephrostomy tube. Pulmonary arteries: No definite significant pulmonary embolism or right heart strain. Aorta: Aortic and coronary atherosclerosis. Lungs: Mucous plugging and slightly thickened bronchi of the left lower lobe, possibly early bronchitis. A few scattered nonspecific although chronic appearing pulmonary strands. Pleural spaces: Unremarkable. No pneumothorax. No pleural effusion. Heart: Unremarkable. No cardiomegaly. No pericardial effusion. Lymph nodes: Unremarkable. No enlarged lymph nodes. Bones/joints: Wedge deformity T8, likely chronic. Soft tissues: Unremarkable. Other findings: Emphysema. CT/CT angio chest PE protcl [id number] IMPRESSION: 1. No definite significant pulmonary embolism or right heart strain. 2. Mucous plugging and slightly thickened bronchi of the left lower lobe, possibly early bronchitis. No definite acute consolidation.
[2025-06-16 20:38] LABS: Respiratory Syncytial Virus Ce NEGATIVE (Negative); SARS-CoV-2 PCR NEGATIVE (Negative)
[2025-06-16 20:45] LABS: Troponin(5th) Baseline 25 ng/L (0-10)
[2025-06-16 21:26] LABS: Glucose Urine UA Negative (Normal); Nitrate Urine Negative (Negative); Specific Gravity, Urine 1.008 (1.005-1.030)
[2025-06-16 21:45] LABS: Add Urine Microscopic? YES; UA Manual Slide Review YES; UA Slide Review UA Slide Review Perf
[2025-06-16] MEDS: iohexol 350 mg/mL 500 mL Btl (per mL) IV (21:56)
[2025-06-16 22:33] LABS: Troponin 5 2HR 24.68 ng/L (0-10)
[2025-06-16 22:36] LABS: Troponin 5 2HR Delta -0.32 ABS# (0-10)
== END 2025-06-16 23:31 | disposition home or self-care (01) ==
PROVIDERS: Emergency Provider Physician Assistant; PCP Family Medicine
DX: J44.1 Chronic obstructive pulmonary disease with (acute) exacerbation (principal); Z79.01 Long term (current) use of anticoagulants; Z11.52 Encounter for screening for COVID-19; F17.210 Nicotine dependence, cigarettes, uncomplicated; I25.10 Atherosclerotic heart disease of native coronary artery without angina pectoris; J44.9 Chronic obstructive pulmonary disease, unspecified; E78.5 Hyperlipidemia, unspecified; I11.0 Hypertensive heart disease with heart failure; I50.21 Acute systolic (congestive) heart failure
CPT/HCPCS: 36415; 71045; 71275; 80053; 81001; 83605; 83880; 84145; 84484; 85025; 85378; 87086; 87637; 93005; 94640; 96374; 99285; J1100; J9999

== ENCOUNTER 2025-07-29 13:49 | Oncology outpatient (recurring) (ONCR) | payer MEDICARE, MEDICAID, SELFPAY ==
[2025-07-22 14:50] LABS: Hematocrit 38.7 % (36-47); Hemoglobin 12.20 g/dL (11.27-16.99); Mean Corpuscular HGB Conc 31.5 g/dL (30-55); Mean Corpuscular Hemoglobin 31.7 pg (27-33); Mean Corpuscular Volume 100.5 fl (85-98); Nucleated Red Blood Cells % 0 %; Platelet Count 209 10^3/cmm (157-399); Red Blood Count 3.85 10^6/uL (3.85-5.65); White Blood Count 3.07 10^3/uL (3.29-11.43)
[2025-07-22 15:05] LABS: Alanine Aminotransferase 10 U/L (0-33); Albumin Level 4.2 g/dL (3.5-5.2); Alkaline Phosphatase 119 U/L (35-105); Anion Gap 17.4 (5-19); Aspartate Amino Transferase 16 U/L (0-32); Blood Urea Nitrogen 24 mg/dL (8-23); Calcium 8.9 mg/dL (8.5-10.5); Carbon Dioxide 21 mmol/L (22-29); Chloride 106 mmol/L (98-107); Ferritin 71 ng/mL (15-150); Globulin 2.5 g/dL (1.3-4.6); Glucose 80 mg/dL (65-115); Iron 41 ug/dL (37-145); Osmolality Calculated 293 mOsm/kg (285-295); Potassium 4.4 mmol/L (3.5-5.1); Sodium 140 mmol/L (136-145); Total Iron Binding Capacity 345 mcg/dl; Total Protein 6.7 g/dL (6.6-8.7); Unsaturated Iron Binding 304 ug/dL (112-347)
[2025-07-22 15:20] LABS: Vitamin B12 800 pg/mL (232-1245)
[2025-07-23 07:23] LABS: PROTEIN, TOTAL 6.4 g/dL (6.1-8.1)
[2025-07-23 12:43] LABS: KAPPA LIGHT CHAIN, FREE, SERUM 27.5 mg/L (3.3-19.4); KAPPA/LAMBDA LIGHT CHAINS FREE 1.85 (0.26-1.65); LAMBDA LIGHT CHAIN, FREE, SERU 14.9 mg/L (5.7-26.3)
[2025-07-24 09:56] LABS: ALPHA 1 GLOBULIN 0.4 g/dL (0.2-0.3); ALPHA 2 GLOBULIN 0.8 g/dL (0.5-0.9); BETA 1 GLOBULIN 0.4 g/dL (0.4-0.6); BETA 2 GLOBULIN 0.3 g/dL (0.2-0.5)
== END 2025-08-10 23:59 | disposition home or self-care (01) ==
PROVIDERS: PCP Family Medicine; Visit Provider Internal Medicine Medical Oncology
DX: D47.2 Monoclonal gammopathy (principal); F17.210 Nicotine dependence, cigarettes, uncomplicated; R03.0 Elevated blood-pressure reading, without diagnosis of hypertension
CPT/HCPCS: 36415; 80053; 82607; 82728; 82746; 82784; 83540; 83550; 83883; 84155; 84165; 85025; 86334; 86880; 99213

== ENCOUNTER 2025-08-21 21:06 | Inpatient (IN) | payer MEDICARE, MEDICAID, SELFPAY ==
[2025-08-21] VITALS (7 sets, daily range): BP systolic 187; BP diastolic 112; PULSE 93–112; RESP 10–30; TEMP 36.4; O2SAT 92–99; BMI 19.7
--- OUTSIDE RECORDS SUMMARY | 2025-08-21 21:16 | XMS_ITS | Clinical Summary ---
Author Organization [facility] Address [address] [place] [address] Care Team Providers Care Project Superintendent Name Role Phone Unavailable Primary Care Provider [...]
--- OUTSIDE RECORDS SUMMARY | 2025-08-21 21:16 | XMS_ITS | Continuity of Care Document ---
Author Organization [facility] Christian P[place] Mohit Gomez, [facility] ([facility]) Address [address] [place] [address] Care Team Providers Care Instrumentation Specialist Name Role Phone YANNI FUENTES Primary Care Provider Assessment No assessment recorded. Plan of Treatment Reminders Order Date Submit Date Provider Last Modified By Organization Details Last Modified Time Details Appointments None recorded. Lab None recorded. Referral None recorded. Procedures None recorded. Surgeries None recorded. Imaging None recorded. Medication Orders albuterol sulfate HFA 90 mcg/actuati on aerosol inhaler [address], [address], 18:05:57 Breztri Aerosphere 160 mcg-9mcg-4. 8mcg/actuat ion HFA aerosol inhaler [address], [address], 17:51:49 Mucinex 600 mg tablet, extended release [address], [address], 17:51:51 Patient TargetsNo targets recorded. Patient InstructionsNo instructions recorded. Reason for Referral None Reported. Problems Name Problem SNOMED Code Status Onset Date Resolution Date Notes Provider Name and Address Organization Details Recorded Time Hypovole gigi shock 57044355 Completed 201512/31/2024 hypovole gigi shock due to GI bleed; hx of ROSALINE RAOUL [facility] 5 12:05:50 Deep venous thrombos is 429287654 Completed 201712/31/2024 DVT, right lower extremit y, hx of ROSALINE SILVEIRA [facility] 5 12:05:50 Carotid artery stenosis 81189945 Active 2022 Carotid Artery Stenosis ; Right Internal 40% stenosis Left Internal 50% Stenosis There is a 80% stenosis at the origin of the R common carotid artery within the chest; 11/11/19 23 9:01AM by Mojgan Ivy RN, Office Visit; Promoted ; acuity set as *; ROSALINE RAOUL [facility] 5 11:58:07 Gastroin testinal hemorrha ge 90130124 Completed 202212/31/2024 hx of ROSALINE RAOUL [facility] 5 12:05:50 Acute non-ST segment elevatio n myocardi al infarcti on 828140000 Completed 202212/31/2024 hx of ROSALINE SILVEIRA [facility] 5 12:05:50 Upper gastroin testinal bleeding 65754780 Completed 202212/31/2024 hx of ROSALINE RAOUL [facility] 5 12:05:50 Gastroes ophageal reflux disease 212391297 Active 2022 ROSALINE SILVEIRA [facility] 5 11:56:48 Moderate mitral valve regurgit ation 316448493 Active 2022 ROSALINE SILVEIRA [facility] 5 12:05:18 Normocyt ic anemia 360126702 Active 2022 ROSALINE SILVEIRA jayla, [facility] 5 11:58:07 Disorder of vitamin B12 858213847 Active 2022 ROSALINE SILVEIRA jayla, [facility] 5 11:56:49 Chronic diastoli c heart failure 565271056 Active 2022 ROSALINE SILVEIRA [facility], [facility] 4 10:37:33 History of myocardi al infarcti on 243273454 Active 2022 ROSALINE dickerson, [facility] 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 5 11:56:49 Chronic kidney disease stage 3B 334806301 Active 2023 ROSALINE SILVEIRA [facility], [facility] 4 10:37:58 Chronic obstruct isidoro pulmonar y disease 24651732 Active 2023 ROSALINE dickerson, [facility] 4 10:26:58 Peripher al vascular disease 633292431 Active 2023 ROSALINE dickerson, [facility] 5 11:58:07 Nicotine dependen ce 46211841 Active 2023 ROSALINE SILVEIRA [facility], [facility] 5 11:58:07 [facility] hyperten fernando 19378754 Active 2023 ROSALINE dickerson, [facility] 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 21267960973 107 Active 2023 ROSALINE dickerson, [facility], [place].CAmari 5 11:56:48 Major depressi ve disorder 156068651 Active 2023 ROSALINE dickerson, [facility], SenaCAmari 5 11:56:48 Chronic systolic heart failure 653070850 Active 2023 ROSALINE dickerson, [facility], MaximinoL.CAmari 5 11:56:48 Leg length inequali ty 22786003 Active 2023 ROSALINE dickerson, [facility], [place].CAmari 5 12:05:18 Osteonec rosis of hip 399960149 Completed 202312/31/2024 ROSALINE dickerson, [facility] 5 12:05:50 Anemia 782858271 Active 2023 ROSALINE dickerson, [facility] 5 11:56:48 Neutrope tiana 698262849 Active 2024 ROSALINE dickerson, [facility], Leeanna.L.CAmari 5 12:05:18 Ischemic congesti ve cardiomy opathy 089699555 Active 2024 ROSALINE dickerson, [facility] 5 11:56:48 Proteinu júnior 25492433 Active 2024 Mojgan dickerson, [facility] 5 11:02:20 Laborato ry test result abnormal 829511701 Active 2024 Mojgan dickerson, [facility] LAmariL.CAmari 5 11:09:33 Problem Notes None recorded. Procedures Surgical History Date Name Laterality Status Provider Name and Address Organization Details Recorded Time 06/14/20 19 Colonoscopy completed [facility] 10/26/2023 13:36:17 06/11/20 16 prosthetic arthroplasty of hip completed [facility] 10/26/2023 13:29:44 femoral-poplitea l artery bypass graft completed [facility] 10/26/2023 13:33:38 excision of colon completed [facility] 10/26/2023 13:32:02 section completed [facility] 10/26/2023 13:32:30 complete repair of rotator cuff completed [facility] 10/26/2023 13:33:59 Hysterectomy completed [facility] 10/26/2023 13:35:37 arthroscopy of knee completed [facility] 10/26/2023 13:36:36 Imaging Results None recorded. Procedure Notes None recorded. Medical Equipment None Reported. Allergies Allergen ID Allergen Name Allergen Category Reaction Reaction Severity Criticality Documentation Date Start Date Code Code System Note Provider Name and Address Organization Details Recorded Time 55850 morphine sulfate medicatio n vomiting Not available Not available 04/08/2023 56814 RxNorm React ion: Vomit ing, Hypot ensio n; Comme nt: Recor ded 11/10 9:01A M by Mojgan Ivy RN, Offic e Visit ; Alan moy; Rashi osborne ce: *; ; [facility] 10:40:53 441 morphine medicatio n Not available Not available Not available 12/05/2022 7052 [facility] 08:23:36 442 Demerol medicatio n Not available Not available Not available 12/05/2022 10903 1 RxNorm Mojgan dickerson, [facility], MaximinoLRegine 3 08:23:43 Medications Name Sig Start Date [...] TAKE 1 TABLET BY MOUTH AT BEDTIME 2024 active Not Available Not Available Not Avai lable nicotine 14 mg/24 hr daily transderm al patch apply one PATCH TO THE SKIN DAILY 12/05 completed Not Available Not Available Not Available metoprolo l succinate ER 50 mg tablet,ex tended release 24 hr TAKE 1 TABLET BY MOUTH TWICE DAILY 07/24 completed Not Available Not Available Not Available hydrocodo ne 5 mg-acetam inophen 325 mg tablet TAKE 1 TABLET BY MOUTH EVERY 6 HOURS NEEDED FOR PAIN FOR 3 DAYS active Not Available Not Available No t Available prednison e 20 mg tablet TAKE 3 TABLETS BY MOUTH DAILY FOR 5 DAYS active Not Available Not Available No t Available isosorbid e mononitra te ER 30 [...] TAKE 1 TABLET BY MOUTH EVERY DAY 2024 active Not Available Not Available Not Avai lable sulfameth oxazole 800 mg-trimet hoprim 160 mg tablet TAKE 1 TABLET BY MOUTH TWICE DAILY FOR 5 DAYS 06/19 completed Not Available Not Available Not Available aspirin 81 mg tablet,de layed release [...] Not Available Not Available No t Available nitroglyc paul 0.4 mg sublingua l [...] sulfate HFA 90 mcg/actua tion aerosol inhaler inhale 2-4 puffs into lungs EVERY 4 HOURS as needed for wheezing active Not Available Not Available No t Available cefdinir 300 mg capsule TAKE 1 CAPSULE BY MOUTH ONCE DAILY FOR 10 DAYS 06/18 completed Not Available Not Available Not Available fluticaso ne propionat e 50 mcg/actua tion nasal spray,[facility] ADMINIST ER TWO SPRAYS INTO EACH NOSTRIL ONCE DAILY active Not Available Not Available No t Available isosorbid e dinitrate 5 mg tablet TAKE 1 TABLET BY MOUTH TWICE DAILY active Not Available Not Available No t Available doxycycli ne hyclate 100 mg tablet TAKE 1 TABLET BY MOUTH TWICE DAILY FOR 10 DAYS active Not Available Not Available No t Available ipratropi um bromide 21 mcg (0.03 [...] completed Not Available Not Available Not Available Mucinex 600 mg tablet, extended release TAKE 1 TABLET BY MOUTH EVERY TWELVE HOURS for 10 days active Not Available Not Available No t Available escitalop nicole 5 mg tablet TAKE 1 TABLET BY MOUTH EVERY DAY 2024 active Not Available Not Available Not Avai lable Vitamin C two times daily 10/26 completed 0; Recorded 11/11/19 23 9:03AM by Mojgan Ivy RN, Office Visit; Not Available Not Available Not Available metoprolo l tartrate two times daily 04/18 completed Recorded 07/12/20 12:00PM by Yanni Fuentes MD, Office Visit; Refill Quantity : 60; Tablet; Not Available Not Available Not Available Fluticaso ne Propionat e (Nasal) 10/26 completed 0; Recorded 11/11/19 9:03AM by Mojgan Ivy RN, Office Visit; Not Available Not Available Not Available lisinopri l daily 04/17 completed 436; Recorded 10/19/19 10:32AM by Rosaline Silveira LPN (Authori zed through Yanni Fuentes MD), Refill Request; Refill Quantity : 90; Tablet; Not Available Not Available Not Available multivita min with iron 09/24 completed Not Available Not Available Not Available ferrous gluconate 324 mg (38 mg iron) tablet TAKE 1 TABLET BY MOUTH EVERY DAY with vitamin c 500 units 2024 active Not Available Not Available Not Avai lable FeroSul 325 mg (65 mg iron) tablet [...] Not Available Not Available No t Available Breztri Aerospher e 160 mcg-9mcg- 4.8mcg/ac tuation HFA aerosol inhaler INHALE TWO PUFFS into lungs TWICE DAILY active Not Available Not Available [...] (BMI) Body weight Body temperature Heart rate Oxygen saturation Systolic And Diastolic Provider Name and Address Organization Details Last Updated DateTime 5 153.67 cm 15.9 kg/m2 11265.1 7 g 97.4 [degF] 80 /min 88 % 92/40 mm[Hg] Mojgan Orosco [facility] 12:50:36 Social History Question Answer Notes LastModified by Organizat ion Details LastModified Time Tobacco Smoking Status Current Every Day Sm[facility] 10/26/2023 10:52:51 What Was The Date Of Your Most Recent Tobacco Screening? 05/05/2025 [email or web address] Information not available 05/05/2025 What Is Your Current Pack Years? 30ormorepacky ears [email or web address] Information not available 10/26/2023 How Much Tobacco Do You Smoke? 0.25 PPD [email or web address] Information not available 10/26/2023 Sex: Unknown Functional Status Question Answer Note LastModified by Organizat ion Details LastModified Time Do you use any illicit or recreational drugs? No [email or web address] Information not available 10/26/2023 Do you or have you ever used any other forms of tobacco or nicotine? No [email or web address] Information not available 10/26/2023 What is your level of alcohol consumption? None [email or web address] Information not available 10/26/2023 Mental Status None recorded. Family History Relationship Description Onset Age of this Age Resolved Age Notes LastModified by Organization Details LastModified Time Father Malignant neoplasm of pancreas [email or web address] Not available 10/26 10:41:27 Paternal Aunt Malignant neoplasm of lung [email or web address] Not available 10/26 10:41:38 Paternal Aunt Coronary atherosclero sis [email or web address] Not available 10/26 10:41:48 Paternal Aunt Cerebrovascu lar accident Not available 10:41:54 Daughter Factor II deficiency prothr ombin gene mutati on [email or web address] Not available 10/26/2023 10:42:26 Medical History No medical history recorded. Gynecological HistoryNo gynecological history recorded. Obstetrics History GPAL:G 0 P 0 0 0 0 Immunizations Vaccine Type Date Status Note Provider Nam e and Address Organization Details Recorded Time Influenza, split virus, trivalent, preservative 0 completed Not Available [facility] 10/26/2023 10:23:21 pneumococcal polysaccharide PPV23 4 completed Not Available [facility] 10/26/2023 10:23:21 Influenza, split virus, trivalent, preservative 4 completed Not Available [facility] 10/26/2023 10:23:21 Pneumococcal conjugate PCV 13 9 completed Not Available [facility] 10/26/2023 10:23:21 Tdap 9 completed Not Available [facility] 10/26/2023 10:23:21 Influenza, high-dose, quadrivalent, PF 2 completed Mojgan dickerson, [facility] 05/01/2023 10:25:46 Influenza, high-dose, quadrivalent, PF 1 completed Mojgan dickerson, [facility] 05/01/2023 10:25:46 COVID-19, mRNA, LNP-S, PF, 100 mcg/0.5mL dose or 50 mcg/0.25mL dose 1 completed Mojgan Orosco null, [facility] 05/01/2023 10:25:46 COVID-19, mRNA, LNP-S, PF, 100 mcg/0.5mL dose or 50 mcg/0.25mL dose 1 completed Mojgan dickerson, [facility] 05/01/2023 10:25:46 COVID-19, mRNA, LNP-S, PF, 100 mcg/0.5mL dose or 50 mcg/0.25mL dose 1 completed Mojgan dickerson, [facility] 05/01/2023 10:25:46 pneumococcal polysaccharide PPV23 1 completed Mojgan dickerson, [facility] 05/01/2023 10:25:46 Influenza, adjuvanted, quadrivalent, PF 3 completed ROSALINE dickerson, [facility] 07/24/2023 10:53:45 zoster recombinant 3 completed ROSALINE dickerson, [facility] 07/24/2023 10:54:00 zoster recombinant 4 completed ROSALINE dickerson, [facility] 10/26/2023 13:38:59 Past Encounters Encounter ID Performer Location Encounter Start Date Encounter Closed Date Diagnosis/Indication Diagnosis SNOMED-CT Code Diagnosis ICD10 Code Diagnosis IMO Codes Diagnosis Note [id number] Yanni Fuentes MD [facility] ([facility]) [address] [place] [id number] 06/19/2025 12:40:43 06/24/2025 14:41:14 Acute exacerbation of chronic obstructive pulmonary disease 294977057 J44.1 975309 Hypoxia 500243762 R09.02 95834 Health Concerns Section Related Observation LastModified by Organization Detai ls LastModified Time None Recorded Concern Status LastModified by Organization Details LastModified Time None Recorded Payers Encounter Date Sequence Insurance Name Policy Number Policy Siddiqi Covered Member ID Siddiqi Member ID Guarantor Name 06/19/2025 1 [facility] [employer] (MEDICARE REPLACEMENT/A DVANTAGE - HMO) Denia Gerardo [id number] Denia Gerardo 06/19/2025 2 [place] Denia Gerardo [id number] Denia Gerardo Notes Date Note Type Note Provider Name and Address Organization Details Recorded Time 06/19/2025 text/html Emergency Depart ment Follow-Up RecordReported by PatientPt is here today for a hospital follow up due to shortness of breath. She was prescribed doxycycline and prednisone and is here today to follow up. Pt states she is currently out of her albuterol inhaler. She is still struggling with shortness of breath. Yanni Fuentes MD [address] [place] [address], [phone], [facility], Leeanna.LSari. 06/19/2025 13:14:12 OBGyn Episode No OBEpisode recorded.
--- OUTSIDE RECORDS SUMMARY | 2025-08-21 21:16 | XMS_ITS | Data Portability ---
Author Organization [facility] Christian Puga [facility], [facility] Address [address] [address] Care Team Providers Care Vp Communications Name Role Phone YANNI SANDERS Primary Care Provider Assessment Encounter Date Assessment Date Assessment LastModified by Organization Details LastModified Time 12/31/2024 12/31/2024 future labs ordered for monday lab only: cbc with peripheral smear, cmp, serum and urine immunoelectro phoresis, serum and urine kappa and lambda light chain ratio, tsh, free t4, b-12, folic acid [email or web address] Not available 12/31/2024 12:38:01 Plan of Treatment Reminders Order Date Submit Date Provider Last Modified By Organization Details Last Modified Time Details Appointments None recorded. Lab urinalysis, dipstick 2024 025 [email or web address] [facility] ([facility]), [address] [place], [address], 5 17:04:57 immunofixat ion + protein electrophor esis + free light chains, serum 2024 025 [email or web address] [employer] [facility], [address] [place] [address], [address] [place], [address], 5 10:12:36 protein electrophor esis, 24-hr urine 2024 025 [email or web address] [employer] [facility], [address] [place] [address], [address], [place], [address], 10:12:36 thyrotropin , QN, serum or plasma 2024 025 [facility], [address] [facility], [facility], [place], [address], 14:58:08 CMP, serum or plasma 2024 [facility], [address] [facility], [facility], [place], [address], 13:34:20 T4, free, serum 2024 [email or web address] [facility], [address] [place] [address], [address], [place], [address], 16:48:15 CBC 2024 [facility], [address] [facility], [facility], [place], [address], 13:35:33 unlisted lab - peripheral blood 2024 025 [facility] [employer] [facility], [address] [place] [address], [address], [place], [address], 10:12:36 folate, serum 2024 025 [employer] [facility], [address] [place] [address], [address], [place], [address], 16:48:13 vitamin B12, serum 2024 025 [employer] [facility], [address] [place] [address], [address], [place], [address], 16:48:16 Referral None recorded. Procedures None recorded. Surgeries None recorded. Imaging None recorded. Medication Orders albuterol sulfate HFA 90 mcg/actuati on aerosol inhaler 10/09/ 2025 10/09/2 025 [facility], [address] [place] [address], [address], 18:05:57 Breztri Aerosphere 160 mcg-9mcg-4. 8mcg/actuat ion HFA aerosol inhaler [address], [address], 17:51:49 Mucinex 600 mg tablet, extended release 2024 [facility], [address] [place] [address], [address], 17:51:51 Macrobid 100 mg capsule 2024 [facility], [address] [place] [address], [address], 05:01:30 Patient TargetsNo targets recorded. Patient InstructionsNo instructions recorded. Reason for Referral None Reported. Results Created Date Observation Date Name Description Value Unit Range Abnormal Flag Note LastModifiedBy Organization Detail LastModifiedTime 01/04/2001/03/2025 CMP (FEMA LE) glucose 80.0 mg/dL 60.0-9 9.0 Not Available [facility] [address] [facility], [place], [address], 01/03/2025 13:34:20 01/04/2001/03/2025 CMP (FEMA LE) BUN (blood urea nitrogen) 46.0 mg/dL 10.0-2 6.0 high Not Available [facility] [facility] [address], [place], [address], 01/03/2025 13:34:20 04/25/20 25 01/03/2025 CMP (FEMA LE) creatinine (serum) 1.6 mg/dL 0.4-1. 5 high Not Available [facility] [address] [facility] 1, [place], [address], 01/03/2025 13:34:20 01/04/20 25 01/03/2025 CMP (FEMA LE) BUN/creatini ne ratio 28.75 ratio Not Available [facility] [address] [facility], [place], [address], 01/03/2025 13:34:20 01/04/20 25 01/03/2025 CMP (FEMA LE) eGFR calculated 33.1 Not Available [facility] [address] [facility], [place], [address], 01/03/2025 13:34:20 01/04/20 25 01/03/2025 CMP (FEMA LE) total protein 8.0 g/dL 6.0-8. 5 Not Available [facility] [address] [facility], [place], [address], 01/03/2025 13:34:20 01/04/20 25 01/03/2025 CMP (FEMA LE) total bilirubin 0.7 mg/dL 0.2-1. 3 Not Available [facility] [address] [facility], [place], [address], 01/03/2025 13:34:20 01/04/20 25 01/03/2025 CMP (FEMA LE) albumin 5.0 g/dL 3.5-5. 5 Not Available [facility] [address] [facility], [place], [address], 01/03/2025 13:34:20 01/04/20 25 01/03/2025 CMP (FEMA LE) globulin 3.0 calc Not Available [facility] [address] [address], [place], [address], 01/03/2025 13:34:20 01/04/20 25 01/03/2025 CMP (FEMA LE) AST (SGOT) 21.0 U/L 0.0-46 .0 Not Available [facility] [address] [facility] 1, [place], [address], 01/03/2025 13:34:20 01/04/20 25 01/03/2025 CMP (FEMA LE) altv (SGPT) 12.0 U/L 13.0-6 9.0 abnormal Not Available [facility] [address] [facility] 1, [place], [address], 01/03/2025 13:34:20 01/04/20 25 01/03/2025 CMP (FEMA LE) A/G ratio 1.7 ratio Not Available [facility] [address] [facility], [place], [address], 01/03/2025 13:34:20 01/04/2001/03/2025 CMP (FEMA LE) ALP phos 97.0 U/L 30.0-1 40.0 normal Not Available [facility] [address] [facility], [place], [address], 01/03/2025 13:34:20 01/04/2001/03/2025 CMP (FEMA LE) calcium 10.0 mg/dL 8.4-10 .5 Not Available [facility] [address] [facility] 1, [place], [address], 01/03/2025 13:34:20 01/04/20 25 01/03/2025 CMP (FEMA LE) sodium 141.0 mmol/ L 136.0- 145.0 Not Available [facility] [address] [facility], [place], [address], 01/03/2025 13:34:20 01/04/20 25 01/03/2025 CMP (FEMA LE) potassium 5.0 mmol/ L 3.5-5. 1 Not Available [facility] [facility], [place], [address], 01/03/2025 13:34:20 01/04/20 25 01/03/2025 CMP (FEMA LE) chloride 108.0 mmol/ L 98.0-1 10.0 normal Not Available [facility] [address] [facility] 1, [place], [address], 01/03/2025 13:34:20 01/04/20 25 01/03/2025 CMP (FEMA LE) C02 22.0 mmol/ L 22.0-3 1.0 Not Available [facility] [address] [facility] 1, [place], [address], 01/03/2025 13:34:20 01/04/20 25 01/03/2025 CMP (FEMA LE) anion gap 11.0 calc Not Available [facility] [address] [facility] 1, [place], [address], 01/03/2025 13:34:20 01/04/20 25 01/03/2025 CMP (FEMA LE) osmolality 301.3 calc Not Available [facility] [address] [facility] 1, [place], [address], 01/03/2025 13:34:20 01/04/20 25 01/03/2025 CBC WBC 4.2 x10 4.0-10 .5 Not Available [facility] [address] [facility] 1, [place], [address], 01/03/2025 13:35:33 01/04/20 25 01/03/2025 CBC RBC 4.33 x10 3.50-5 .50 Not Available [facility] [address] [facility], [place], [address], 01/03/2025 13:35:33 01/04/2001/03/2025 CBC HGB 13.7 g/dL 12.0-1 6.0 Not Available [facility] [address] [facility], [place], [address], 01/03/2025 13:35:33 01/04/2001/03/2025 CBC HCT 42.0 % 37.0-4 7.0 Not Available [facility] [address] [facility] 1, [place], [address], 01/03/2025 13:35:33 01/04/2001/03/2025 CBC MCV 97.0 fL 80.0-9 9.9 Not Available [facility] [address] [facility], [place], [address], 01/03/2025 13:35:33 01/04/2001/03/2025 CBC MCH 31.7 pg 27.0-3 2.0 Not Available [facility] [address] [facility] 1, [place], [address], 01/03/2025 13:35:33 01/04/2001/03/2025 CBC MCHC 32.7 g/dL 32.0-3 6.0 Not Available [facility] [address] [facility] 1, [place], [address], 01/03/2025 13:35:33 01/04/2001/03/2025 CBC RDW 13.4 % 11.5-1 4.5 Not Available [facility] [address] [facility] [address] [facility] [address] [facility] 1, [place], [address], 01/03/2025 13:35:33 01/04/2001/03/2025 CBC plt 179.0 x10 140.0- 451.0 Not Available [facility] [address] [facility] 1, [place], [address], 01/03/2025 13:35:33 01/04/20 25 01/03/2025 CBC lymphocytes % 27.2 % 20.0-5 0.0 Not Available [facility] [address] [facility] 1, [place], [address], 01/03/2025 13:35:33 01/04/20 25 01/03/2025 CBC granulcytes % 65.3 % 30.0-7 0.0 Not Available [facility] [address] [facility] 1, [place], [address], 01/03/2025 13:35:33 01/04/20 25 01/03/2025 CBC monocytes % 5.3 % 2.0-16 .0 Not Available [facility] [address] [address], [place], [address], 01/03/2025 13:35:33 01/04/20 25 01/03/2025 CBC granulcytes# 2.8 x10 Not Celeste ilable [facility] [address] [facility] 1, [place], [address], 01/03/2025 13:35:33 01/04/20 25 01/03/2025 CBC lymphocytes # 1.1 x10 Not Available [facility] [address] [facility] 1, [place], [address], 01/03/2025 13:35:33 01/04/2001/03/2025 CBC monocytes # 0.2 x10 Not Avai lable [facility] [address] [facility] 1, [place], [address], 01/03/2025 13:35:33 01/04/20 25 01/03/2025 TSH TSH 1.77 uIU/m L 0.49-3 .82 Not Available [facility] [address] [facility], [place], [address], 01/03/2025 14:58:08 01/04/20 25 01/04/2025 PERIP HERAL BLOOD SMEAR REVIE W peripheral blood smear review RBC morph ology appea rs kaitlyn l. Revie w of the perip heral smear revea ls adequ ate numbe rs of plate lets. Revie w of perip heral smear confi travis autom ated resul ts. Not Available [facility] [address] [address] [place], [address], 01/04/2025 15:40:47 01/04/20 25 01/09/2025 PROTE IN, TOTAL AND PROTE IN ELECT ROPHO RESIS WITH IMMUN OFIXA TION protein, total 7.4 g/dL 6.1-8. 1 normal Not Available [facility] [address] [address] [place], [address], 01/09/2025 16:48:10 01/04/20 25 01/09/2025 PROTE IN, TOTAL AND PROTE IN ELECT ROPHO RESIS WITH IMMUN OFIXA TION carlos interpretati on Kaitlyn headley rn. No monoc lonal prote ins detec farzaneh. Not Available [facility] [address] [address] [place], [address], 01/09/2025 16:48:10 01/04/20 25 01/09/2025 PROTE IN, TOTAL AND PROTE IN ELECT ROPHO RESIS WITH IMMUN OFIXA TION albumin 4.6 g/dL 3.8-4. 8 normal Not Available [facility] [address] [address] [place], [address], 01/09/2025 16:48:10 01/04/20 25 01/09/2025 PROTE IN, TOTAL AND PROTE IN ELECT ROPHO RESIS WITH IMMUN OFIXA TION alpha 1 globulin 0.4 g/dL 0.2-0. 3 high Not Available [facility] [id number], [place], [address], 01/09/2025 16:48:10 01/04/2001/09/2025 PROTE IN, TOTAL AND PROTE IN ELECT ROPHO RESIS WITH IMMUN OFIXA TION alpha 2 globulin 1.0 g/dL 0.5-0. 9 high Not Available [facility] [address], [address], 01/09/2025 16:48:10 01/04/20 25 01/09/2025 PROTE IN, TOTAL AND PROTE IN ELECT ROPHO RESIS WITH IMMUN OFIXA TION beta 1 globulin 0.5 g/dL 0.4-0. 6 normal Not Available [address], [address], 01/09/2025 16:48:10 01/04/20 25 01/09/2025 PROTE IN, TOTAL AND PROTE IN ELECT ROPHO RESIS WITH IMMUN OFIXA TION beta 2 globulin 0.4 g/dL 0.2-0. 5 normal Not Available [address], [address], 01/09/2025 16:48:10 01/04/20 25 01/09/2025 PROTE IN, TOTAL AND PROTE IN ELECT ROPHO RESIS WITH IMMUN OFIXA TION gamma globulin 0.6 g/dL 0.8-1. 7 low Not Available [address], [address], 01/09/2025 16:48:10 01/04/20 25 01/09/2025 PROTE IN, [...] if clini brenda indic ated. Not Available [employer] [address] [address] [place], [address], 01/09/2025 16:48:10 01/04/2001/09/2025 KAPPA /IVY DA LIGHT CHAIN , FREE W/RAT IO,RA ND URINE kappa light chain, free, urine 13.89 mg/L <=32.9 0 Not Available [facility] [address] [address] [place], [address], 01/09/2025 16:48:11 01/04/2001/09/2025 KAPPA /IVY DA LIGHT CHAIN , FREE W/RAT IO,RA ND URINE lambda light chain, free, urine 2.29 mg/L <=3.79 Not Available [facility] [address] [place], [address], 01/09/2025 16:48:11 01/04/2001/09/2025 KAPPA /IVY DA LIGHT CHAIN , FREE W/RAT IO,RA ND URINE kappa/lambda , free ratio 6.07 <=8.69 If free light chain resul ts do not agree with other clini margaret or labor atory findi ngs, repea t testi ng on a dilut ed sampl e to rule out antig en exces s may be reque sted. Not Available [employer] [address] [place], [address], 01/09/2025 16:48:11 01/04/2001/09/2025 IMMUN OFIXA TION, URINE carlos interpretati on No monoc lonal immun oglob ulin detec farzaneh. The suppl ier of the testi ng reage nts for this assay has weiss ed. Detec tion of small monoc lonal prote ins may vary by test syste m. Not Available [address] [address] [place], [address], 01/09/2025 16:48:12 01/04/2001/09/2025 KAPPA /IVY DA LIGHT CHAIN S FREE WITH RATIO , SERUM kappa light chain, free, serum 33.7 mg/L 3.3-19 .4 high Not Available [facility] [address] [address] [place], [address], 01/09/2025 16:48:12 01/04/2001/09/2025 KAPPA /IVY DA LIGHT CHAIN S FREE WITH RATIO , SERUM lambda light chain, free, serum 15.0 mg/L 5.7-26 .3 normal Not Available [facility] [address] [address] [place], [address], 01/09/2025 16:48:12 01/04/2001/09/2025 KAPPA /IVY DA LIGHT [...] py of these disor ders. Not Available [facility] [address] [place], [address], 01/09/2025 16:48:12 01/04/2001/09/2025 FOLAT E, SERUM folate, serum >24.0 NG/mL normal Refer ence Range Low: <3.4 Borde rline : 3.4-5 .4 Kaitlyn l: >5.4 Not Available [facility] [address] [place] [address], [address], 01/09/2025 16:48:13 01/04/20 25 01/09/2025 T4, FREE T4, free 1.4 NG/dL 0.8-1. 8 normal Not Available [facility] [address], [address], 01/09/2025 16:48:14 01/04/20 25 01/09/2025 VITAM IN B12 vitamin B12 759 pg/mL 200-11 00 normal Not Available [facility] [address], [address], 01/09/2025 16:48:16 01/16/20 25 01/15/2025 urina lysis , dipst ick Leukocytes Large Not Available [facility] [address] [place] [address], [address], 01/15/2025 16:52:10 01/16/20 25 01/15/2025 urina lysis , dipst ick Nitrite positi ve Not Available [facility] ([facility]) [address] [place] [address], [address], 01/15/2025 16:52:10 01/16/20 25 01/15/2025 urina lysis , dipst ick Urobilinogen 4 Not Available [facility] ([facility]) [address] [place] [address], [address], 01/15/2025 16:52:10 01/16/20 25 01/15/2025 urina lysis , dipst ick Protein 300 Not Available [facility] ([facility]) [address] [place] [address], [address], 01/15/2025 16:52:10 01/16/20 25 01/15/2025 urina lysis , dipst ick pH 5.5 Not Available [facility] ([facility]) [address] [place], [address], 01/15/2025 16:52:10 01/16/20 25 01/15/2025 urina lysis , dipst ick Blood Large Not Available [facility] ([facility]) [address] [place], [address], 01/15/2025 16:52:10 01/16/20 25 01/15/2025 urina lysis , dipst ick Specific Lie[place]hal 1.015 Not Available [facility] ( [facility]) [address] [place], [address], 01/15/2025 16:52:10 01/16/20 25 01/15/2025 urina lysis , dipst ick Ketone Negati ve Not Available [facility] ([facility]) [address] [place], [address], 01/15/2025 16:52:10 01/16/20 25 01/15/2025 urina lysis , dipst ick Bilirubin Small Not Available [facility] ([facility]) [address] [place], [address], 01/15/2025 16:52:10 01/16/20 25 01/15/2025 urina lysis , dipst ick Glucose Negati ve Not Available [facility] ([facility]) [address] [place], [address], 01/15/2025 16:52:10 01/16/20 25 01/15/2025 urina lysis , dipst ick Appearance Clear Not Available [facility] ([facility]) [address] [place], [address], 01/15/2025 16:52:10 01/16/20 25 01/15/2025 urina lysis , dipst ick Color Red Not Available [facility] ([facility]) [address] [place], [address], 01/15/2025 16:52:10 Result Notes None recorded. Problems Name Problem SNOMED Code Status Onset Date Resolution Date Notes Provider Name and Address Organization Details Recorded Time Hypovole gigi shock 13213732 Completed 201512/31/2024 hypovole gigi shock due to GI bleed; hx of ROSALINEANNITA SILVEIRA [facility] 12:05:50 Deep venous thrombos is 471879874 Completed 201712/31/2024 DVT, right lower extremit y, hx of ROSALINE SILVEIRA [facility] 12:05:50 Carotid artery stenosis 26732843 Active 2022 Carotid Artery Stenosis ; Right Internal 40% stenosis Left Internal 50% Stenosis There is a 80% stenosis at the origin of the R common carotid artery within the chest; 11/11/19 9:01AM by Mojgan Ivy RN, Office Visit; Promoted ; acuity set as *; ROSALINE SILVEIRA [facility] 11:58:07 Gastroin testinal hemorrha ge 61259532 Completed 202212/31/2024 hx of ROSALINE SILVEIRA [facility] 12:05:50 Acute non-ST segment elevatio n myocardi al infarcti on 776098455 Completed 202212/31/2024 hx of ROSALINE SILVEIRA [facility] 12:05:50 Upper gastroin testinal bleeding 85862646 Completed 202212/31/2024 hx of ROSALINE SILVEIRA [facility] 04/22/202 5 12:05:50 Gastroes ophageal reflux disease 719955961 Active 2022 ROSALINE dickerson, [facility] 5 11:56:48 Moderate mitral valve regurgit ation 751670168 Active 2022 ROSALINE dickerson, [facility] 5 12:05:18 Normocyt ic anemia 236389955 Active 2022 ROSALINE dickerson, [facility] 5 11:58:07 Disorder of vitamin B12 862760995 Active 2022 ROSALINE dickerson, [facility] 5 11:56:49 Chronic diastoli c heart failure 582108510 Active 2022 ROSALINE dickerson, [facility] 4 10:37:33 History of myocardi al infarcti on 315508737 Active 2022 ROSALINE dickerson, [facility] 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 5 11:56:49 Chronic kidney disease stage 3B 147699400 Active 2023 ROSALINE dickerson, [facility] 4 10:37:58 Chronic obstruct isidoro pulmonar y disease 67257839 Active 2023 ROSALINE dickerson, [facility] 4 10:26:58 Peripher al vascular disease 326416995 Active 2023 ROSALINE dickerson, [facility] 5 11:58:07 Nicotine dependen ce 36460711 Active 2023 ROSALINE SILVEIRA null, [facility] 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 5 11:56:48 Major depressi ve disorder 557355335 Active 2023 ROSALINE SILVEIRA null, [facility] 5 11:56:48 Chronic systolic heart failure 056641179 Active 2023 ROSALINE SILVEIRA null, [facility] 5 11:56:48 Leg length inequali ty 35565400 Active 2023 ROSALINE SILVEIRA null, [facility] 5 12:05:18 Osteonec rosis of hip 520183170 Completed 202312/31/2024 ROSALINE SILVEIRA null, [facility] 5 12:05:50 Anemia 755707432 Active 2023 ROSALINE SILVEIRA null, [facility] 5 11:56:48 Neutrope tiana 602121750 Active 2024 ROSALINE SILVEIRA null, [facility] 5 12:05:18 Ischemic congesti ve cardiomy opathy 957165138 Active 2024 ROSALINE dickerson, [facility] 11:56:48 Proteinu júnior 46590783 Active 2024 [facility] 11:02:20 Laborato ry test result abnormal 639505264 Active 2024 [facility] 11:09:33 Problem Notes None recorded. Procedures Surgical History Date Name Laterality Status Provider Name and Address Organization Details Recorded Time 06/14/20 19 Colonoscopy completed [facility] 10/26/2023 13:36:17 06/11/20 16 prosthetic arthroplasty of hip completed [facility] 10/26/2023 13:29:44 femoral-poplitea l artery bypass graft completed [facility] 10/26/2023 13:33:38 excision of colon completed [facility] 10/26/2023 13:32:02 section completed [facility] 10/26/2023 13:32:30 complete repair of rotator cuff completed [facility] 10/26/2023 13:33:59 Hysterectomy completed [facility] 10/26/2023 13:35:37 arthroscopy of knee completed [facility] 10/26/2023 13:36:36 Imaging Results None recorded. Procedure Notes None recorded. Medical Equipment None Reported. Allergies Allergen ID Allergen Name Allergen Category Reaction Reaction Severity Criticality Documentation Date Start Date Code Code System Note Provider Name and Address Organization Details Recorded Time 27040 morphine sulfate medicatio n vomiting Not available Not available 04/08/2023 95570 RxNorm React ion: Vomit ing, Hypot ensio n; Comme nt: Recor ded 11/10 9:01A M by Mojgan Ivy RN, Offic e Visit ; Alan moy; Rashi osborne ce: *; ; ROSALINE dickerson, [facility] 4 10:40:53 441 morphine medicatio n Not available Not available Not available 12/05/2022 7052 RxNorm [facility] 3 08:23:36 442 Demerol medicatio n Not available Not available Not available 12/05/2022 86705 1 RxNorm [facility] 3 08:23:43 Medications Name Sig Start Date [...] day by oral route for 90 days. 08/08/ 2023 02/15 /2024 completed Not Available Not Available Not Available [...] 04/18 completed Recorded 07/12/20 12:00PM by Yanni Sanders MD, Office Visit; Refill Quantity : 60; Tablet; Not Available Not Available Not Available Fluticaso ne Propionat e (Nasal) 10/26 completed 0; Recorded 11/11/19 23 9:03AM by Mojgan Ivy RN, Office Visit; Not Available Not Available Not Available lisinopri l daily 04/17 completed 436; Recorded 10/19/19 10:32AM by Rosaline Silveira LPN (Authori zed through Yanni Sanders MD), Refill Request; Refill Quantity : [...] (BMI) Body weight Body temperature Oxygen saturation Heart rate Systolic And Diastolic Provider Name and Address Organization Details Last Updated DateTime 5 153.67 cm 17.5 kg/m2 30622.9 1 g 97.4 [degF] 98 % 65 /min 130/62 mm[Hg] ROSALINE SILVEIRA [facility] 5 11:49:33 Date Recorded Body height Body mass index (BMI) Body weight Respiratory rate Body temperature Systolic And Diastolic Provider Name and Address Organization Details Last Updated DateTime 5 153.67 cm 17.3 kg/m2 97016.3 1 g 16 /min 98.5 [degF] 134/76 mm[Hg] [facility] 17:00:15 Date Recorded Body height Body mass index (BMI) Body weight Oxygen saturation Heart rate Respiratory rate Systolic And Diastolic Provider Name and Address Organization Details Last Updated DateTime 5 153.67 cm 15.6 kg/m2 58154.9 8 g 94 % 66 /min 18 /min 122/66 mm[Hg] [facility] 5 15:05:36 Date Recorded Body height Body mass index (BMI) Body weight Body temperature Heart rate Oxygen saturation Systolic And Diastolic Provider Name and Address Organization Details Last Updated DateTime 5 153.67 cm 15.9 kg/m2 61011.1 7 g 97.4 [degF] 80 /min 88 % 92/40 mm[Hg] Mojgan Orosco [facility]CAmari 5 12:50:36 Social History Question Answer Notes LastModified by Organizat ion Details LastModified Time Tobacco Smoking Status Current Every Day Smoker [facility]26/[facility]23 10:52:51 What Was The Date Of Your Most Recent Tobacco Screening? 05/05/2025 [email or web address] Information not available 05/05/2025 What Is Your Current Pack Years? [email or web address] Information not available 10/26/2023 How Much Tobacco Do You Smoke? 0.25 PPD [email or web address] Information not available 10/26/2023 Sex: Unknown Functional Status Question Answer Note LastModified by Organizat ion Details LastModified Time Do you use any illicit or recreational drugs? No [email or web address] Information not available 10/26/2023 Do you or have you ever used any other forms of tobacco or nicotine? No [email or web address] Information not available 10/26/2023 What is your level of alcohol consumption? None [email or web address] Information not available 10/26/2023 Mental Status None recorded. Family History Relationship Description Onset Age of this Age Resolved Age Notes LastModified by Organization Details LastModified Time Father Malignant neoplasm of pancreas Not available 10/26 10:41:27 Paternal Aunt Malignant neoplasm of lung [email or web address] Not available 10/26 10:41:38 Paternal Aunt Coronary atherosclero sis [email or web address] Not available 10/26 10:41:48 Paternal Aunt Cerebrovascu lar accident [email or web address] Not available 10:41:54 Daughter Factor II deficiency prothr ombin gene mutati on [email or web address] Not available 10/26/2023 10:42:26 Medical History No medical history recorded. Gynecological HistoryNo gynecological history recorded. Obstetrics History GPAL:G 0 P 0 0 0 0 Immunizations Vaccine Type Date Status Note Provider Nam e and Address Organization Details Recorded Time Influenza, split virus, trivalent, preservative 0 completed Not Available [facility] 10/26/2023 10:23:21 pneumococcal polysaccharide PPV23 4 completed Not Available [facility] 10/26/2023 10:23:21 Influenza, split virus, trivalent, preservative 4 completed Not Available [facility] 10/26/2023 10:23:21 Pneumococcal conjugate PCV 13 9 completed Not Available [facility] 10/26/2023 10:23:21 Tdap 9 completed Not Available [facility] 10/26/2023 10:23:21 Influenza, high-dose, quadrivalent, PF 2 [facility] 05/01/2023 10:25:46 Influenza, high-dose, quadrivalent, PF 1 [facility] 05/01/2023 10:25:46 COVID-19, mRNA, LNP-S, PF, 100 mcg/0.5mL dose or 50 mcg/0.25mL dose 1 completed [facility] 05/01/2023 10:25:46 COVID-19, mRNA, LNP-S, PF, 100 mcg/0.5mL dose or 50 mcg/0.25mL dose 1 completed [facility] 05/01/2023 10:25:46 COVID-19, mRNA, LNP-S, PF, 100 mcg/0.5mL dose or 50 mcg/0.25mL dose 1 completed [facility] 05/01/2023 10:25:46 pneumococcal polysaccharide PPV23 1 completed [facility] 05/01/2023 10:25:46 Influenza, adjuvanted, quadrivalent, PF 3 completed ROSALINE dickerson, [facility] 07/24/2023 10:53:45 zoster recombinant 3 completed ROSALINE dickerson, [facility] 07/24/2023 10:54:00 zoster recombinant 4 completed ROSALINE dickerson, [facility] 10/26/2023 13:38:59 Past Encounters Encounter ID Performer Location Encounter Start Date Encounter Closed Date Diagnosis/Indication Diagnosis SNOMED-CT Code Diagnosis ICD10 Code Diagnosis IMO Codes Diagnosis Note [id number] Yanni Sanders MD [facility] ([facility]) [address] [place] [address] [id number] 5 12/05/2022 08:03:57 12/05/2022 09:30:55 Acute on chronic combined systolic and diastolic heart failure 9370029172 92048 I50.43 Chronic ur inary tract infection 777660951 N39.0 Acute inju ry of kidney 7727679903 7452645 N17.9 History of insertion of stent into ureter 897881939 Z98.890 [id number] Yanni Sanders MD [facility] ([facility]) [address] [place] [address] [id number] 5 12/09/2022 09:40:55 12/19/2022 12:11:53 Acute injury of kidney 7640204910 0134666 N17.9 [id number] Yanni Sanders MD [facility] ([facility]) [address] [place] [address] 05316-826 5 12/19/2022 09:01:16 12/19/2022 11:30:56 Acute injury of kidney 2384059703 4584996 N17.9 Hyperkalemia 29985468 E8 7.5 labs pending. she will call with bp and hr when she gets home and once i have her bloodwork and her vs i can decide which medication s to reduce and which to not. [id number] Yanni Sanders MD [facility] ([facility]) [address] [place] [address] [id number] 5 01/04/2023 15:13:39 01/04/2023 20:29:41 Acute injury of kidney 9686290338 0563038 N17.9 [id number] HALINA SANDERS PA-C [facility]) [address] [place] [address] [id number] 5 02/15/2023 12:52:54 02/15/2023 13:00:58 Anemia 291876378 D64.9 cbc, folic acid, b12, cmp, retic count and hemoccult cards x 3 Acute urin krish tract infection 020738291 N39.0 on IV [employer] Congestive heart failure 89495540 I50.9 [id number] HALINA SANDERS PA-C [facility] ([facility]) [address] [place] [address] [id number] 5 03/01/2023 10:54:28 03/25/2023 20:56:17 Gastrointestinal hemorrhage 16405729 K92.2 CBC ON monday PLAVIX HELD UNTIL Monday HALINA SANDERS PA-C [facility] ([facility]) [address] [place] [address] [phone] 5 03/08/2023 10:42:28 03/23/2023 12:44:54 Acute non-ST segment elevation myocardial infarction 853606041 I21.4 D/C TO HOME WITH CURRENT MEDS, FOLLOW UP WITH DR SANDERS IN 2 WEEKS Upper gastrointestinal bleeding 92110710 K92.89 Chronic ob structive pulmonary disease 44786029 J43.9 [id number] DANICA DAVIS [facility]) [address] [place] [address] [id number] 5 04/14/2023 15:49:16 04/25/2023 07:42:24 Swelling of lower leg 402608559 R22.41 Due to unilateral leg swelling, weak [...] patient to ED. Report was called to [facility] ED by JOSE CARLOS Hayes. [id number] HALINA SANDERS PA-C [facility]) [address] [place] [address] [id number] 5 04/18/2023 09:19:05 04/18/2023 19:21:52 Coronary arteriosclerosis 60260567 I25.10 her chest pain sound more like anxiety driven. will get her back to see Cardiology . I will increase her isosorbide and send nitro refills in. She is on plavix and ASA. Upper gastrointestinal bleeding 13842341 K92.89 Iron defic iency anemia 60308528 D50.9 recheck labs today. Chronic ob structive pulmonary disease 01862770 J43.9 Congestive heart failure 26383566 I50.21 [id number] Yanni Sanders MD [facility]) [address] [place] [address] [id number] 5 05/01/2023 10:15:09 05/01/2023 14:14:00 Normocytic anemia 829135065 D64.9 Heart fail ure with reduced ejection fraction 127297651 I50.9 Moderate m itral valve regurgitation 623409146 I34.0 Cobalamin deficiency 190 179344 E53.8 Iron defic iency anemia 64141393 D50.9 Chronic ob structive pulmonary disease 18335848 J44.9 Chronic ki dney disease stage 3A 438549691 N18.31 Hydronephrosis 04343040 N13.30 [id number] Yanni Sanders MD [facility] ([facility]) [address] [place], [place] [address]805-204 5 05/02/2023 10:26:25 05/02/2023 11:46:43 Cobalamin deficiency 534539655 E53.8 [id number] DANICA DAVIS [facility]) [address] [place] [address] 5 05/04/2023 10:00:38 05/04/2023 13:46:00 Otalgia of right ear 0217352309 H92.01 Score of 0 on NIHSS scale [...] ED. Patient and son verbalized understand ing. [id number] Yanni Sanders MD [facility] ([facility]) [address] [place] [address] [id number] 5 05/11/2023 14:35:06 05/21/2023 20:32:51 Disorder of vitamin B12 245837003 E53.8 Anemia 374072503 D64.9 [id number] DANICA ADVIS [facility]) [address] [place] [address] [id number] 5 05/19/2023 15:03:17 06/13/2023 04:03:39 Disorder of vitamin B12 993089032 E53.8 nurse visit, injection only [id number] Yanni Sanders MD [facility]) [address] [place] [address] [id number] 5 05/25/2023 12:22:40 05/25/2023 13:33:23 Cobalamin deficiency 283869177 E53.8 [id number] Yanni Sanders MD [facility]) [address] [place] [address] [id number] 5 06/01/2023 08:49:17 06/01/2023 11:42:26 Generalized anxiety disorder 42341820 F41.1 [id number] Yanni Sanders MD [facility]) [address] [place] [address] [id number] 5 07/24/2023 09:23:09 07/24/2023 11:02:12 Gastroesophageal reflux disease 727512659 K21.9 Acute non- ST segment elevation myocardial infarction 584934069 I21.4 Chronic di astolic heart failure 841922900 I50.32 History of myocardial infarction 741062571 I25.2 History of insertion of stent into ureter 520986626 Z98.890 History of malignant neoplasm of cervix 326312782 Z85.41 last 2018 Cobalamin deficiency 190 058804 E53.8 Anemia 837185729 D64.9 [id number] Yanni Sanders MD [facility]) [address] [place] [address] [id number] 5 10/26/2023 10:23:01 10/26/2023 11:38:51 Chronic diastolic heart failure 512780061 I50.32 History of myocardial infarction 584704699 I25.2 Chronic ob structive pulmonary disease 61737380 J44.9 Peripheral vascular disease 230635473 I73.9 Nicotine dependence 5629 4008 F17.200 Essential hypertension 97996334 I10 Hypertensi ve heart AND chronic kidney disease with congestive heart failure 6398980005 9107 I13.0 Major depr essive disorder 290304448 F32.9 Chronic diarrhea 8048054 09 K52.9 add fiber supplement [id number] Yanni Sanders MD [facility]) [address] [place] [address] [id number] 5 11/09/2023 10:26:15 11/09/2023 11:26:08 Chronic colitis 70960199 K52.9 Chronic ki dney disease stage 3A 208241871 N18.31 Chronic sy stolic heart failure 245902636 I50.22 reviewed recent echo ef down to 22% Diarrhea 40498338 R19.7 [id number] Yanni Sanders MD [facility]) [address] [place] [address] [id number] 5 11/15/2023 08:49:43 11/16/2023 10:44:25 Iron deficiency anemia 60366751 D50.9 Hypertensi ve heart AND chronic kidney disease with congestive heart failure 7464914306 9107 I13.0 [id number] Yanni Sanders MD [facility]) [address] [place] [address] 85514-454 5 11/16/2023 08:51:47 11/16/2023 10:23:04 [id number] Yanni Sanders MD [facility]) [address] [place] [address] [id number] 5 12/26/2023 10:23:47 12/26/2023 12:17:17 Osteonecrosis of hip 905116559 M87.859 we cannot replace the hop with the heart evaluation still pending etc. will try to expedite thisrecomm end powered wheelchair and will start her evaluation . Leg length inequality 45 223398 M21.70 will refer Heart fail ure with reduced ejection fraction 282122268 I50.9 will request that her stress test be completed as results are not available 11 days later. History of insertion of stent into ureter 829292659 Z98.890 still awaiting urology to schedule her appointmen t. started in july. 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 she is unaware of any contact thus far. so we will try to assist with getting that set up. [id number] Yanni Sanders MD [facility]) [address] [place] [address] [id number] 5 01/16/2024 10:14:42 01/17/2024 20:06:10 Osteonecrosis of hip 723013615 M87.859 powered wheelchair ALBERT 99 months Patient [...] evaluation through PT Leg length inequality 45 624352 M21.70 Chronic di astolic heart failure 597508504 I50.32 Chronic ob structive pulmonary disease 62390579 J44.9 Heart fail ure with reduced ejection fraction 075839350 I50.9 Peripheral vascular disease 514302824 I73.9 [id number] Yanni Sanders MD [facility]) [address] [place] [address] 5 01/19/2024 11:25:39 01/22/2024 08:26:37 Serum creatinine above reference range 778835595 R79.89 Anemia 444804464 D64.9 [id number] Yanni Sanders MD [facility]) [address] [place] [address] [id number] 5 01/22/2024 09:05:38 01/22/2024 11:35:20 Serum creatinine above reference range 616789780 R79.89 Anemia 215278577 D64.9 [id number] Yanni Sanders MD [facility]) [address] [place] [address] [id number] 5 01/22/2024 09:05:21 01/22/2024 13:22:00 Anemia 157607873 D64.9 Disorder o f vitamin B12 888712977 E53.8 Essential hypertension 76430587 I10 [id number] Yanni Sanders MD [facility]) [address] [place] [address] [id number] 5 01/31/2024 10:31:15 01/31/2024 12:42:44 [id number] Yanni Sanders MD [facility]) [address] [place] [address] [id number] 5 03/06/2024 09:08:53 03/07/2024 10:12:24 Anemia 186599660 D64.9 [id number] Yanni Sanders MD [facility]) [address] [place] [address] 84476-135 5 03/13/2024 10:54:44 03/16/2024 07:20:33 Chronic kidney disease stage 3B 214948218 N18.32 Chronic sy stolic heart failure 319321976 I50.22 reviewed recent echo ef down to 22% most recent back up to 40%she will see cardiology in 3 plus weeks. [id number] Yanni Sanders MD [facility]) [address] [place] [address] [id number] 5 05/30/2024 09:29:52 05/30/2024 10:13:51 COVID-19 387256149 U07.1 she was prescribed paxlovid at the [facility] pos. by PCR.sx c/w covid.\pro gressing quite well however needs to increase calorie intake. d/c steroidcom plete paxlovid [id number] Yanni Sanders MD [facility]) [address] [place] [address] 45205-322 5 06/06/2024 09:05:39 06/07/2024 10:33:16 Iron deficiency anemia 87479224 D50.9 Chronic ki dney disease stage 3B 110856783 N18.32 [id number] Yanni Sanders MD [facility]) [address] [place] [address] 96742-466 5 06/13/2024 10:38:41 06/13/2024 11:52:35 Chronic diastolic heart failure 815682689 I50.32 Chronic ki dney disease stage 3B 255846562 N18.32 History of myocardial infarction 202615005 I25.2 Hypertensi ve heart AND chronic kidney disease with congestive heart failure 1535467199 9107 I13.0 Heart fail ure with reduced ejection fraction 282134729 I50.42 Ischemic c ongestive cardiomyopathy 968900795 I25.5 [id number] NIKOLE HUYNH [facility]) [address] [place] [address] 43469-936 5 09/13/2024 14:14:30 09/13/2024 15:27:14 Pain in left foot 5625477326 50931 M79.672 Possible arterial occlusion. WIll send to ER for further evaluation and treatment. [id number] Yanni Sanders MD [facility]) [address] [place] [address] 99597-902 5 09/24/2024 09:07:10 09/24/2024 09:40:55 Fall in home 85603955 Y92.009 Hematoma of face 2557001 01 S00.83XD no sign of neurologic sequelae Neutropenia 492677190 D7 0.9 Alkaline p hosphatase above reference range 244856174 R74.8 Macrocytos is - no anemia 766397311 D75.89 Acute kidney injury 1466 9001 N17.9 Iron deficiency 68290203 E61.1 [id number] Yanni Sanders MD [facility]) [address] [place] [address] 52172-388 5 10/09/2024 09:00:19 10/09/2024 14:27:04 Cobalamin deficiency 312303780 E53.8 Free immun oglobulin light chain above reference range 2973626340 4 R89.4 [id number] Yanni Sanders MD [facility]) [address] [place] [address] 36613-035 5 12/31/2024 10:21:18 12/31/2024 14:04:39 Osteonecrosis of hip 999220607 M87.859 Chronic di astolic heart failure 307590178 I50.32 Chronic ob structive pulmonary disease 63694292 J44.9 Heart fail ure with reduced ejection fraction 407352687 I50.9 Peripheral vascular disease 448513634 I73.9 Chronic ki dney disease stage 3B 138841176 N18.32 History of myocardial infarction 829897536 I25.2 Hypertensi ve heart AND chronic kidney disease with congestive heart failure 0216554857 9107 I13.0 Ischemic c ongestive cardiomyopathy 542956799 I25.5 Anemia 647936602 D64.9 Nicotine dependence 5629 4008 F17.200 Essential hypertension 85731922 I10 Chronic sy stolic heart failure 061939488 I50.22 reviewed recent echo ef down to 22% most recent back up to 40%she will see cardiology tomorrow. History of malignant neoplasm of cervix 006035449 Z85.41 she has an apt tomorrow with her gynecologi st for surveillan ce Major depr essive disorder 701077348 F32.9 Monoclonal gammopathy of uncertain significance 926074368 D47.2 888154 [id number] Yanni Sanders MD [facility]) [address] [place] [address] 49195-239 5 01/03/2025 12:06:46 01/06/2025 13:02:28 Anemia 632856652 D64.9 Chronic di astolic heart failure 540557539 I50.32 Chronic ki dney disease stage 3B 092545878 N18.32 Disorder o f vitamin B12 284235668 E53.8 Essential hypertension 64002124 I10 Hypertensi ve heart AND chronic kidney disease with congestive heart failure 2252031620 9107 I13.0 [id number] NIKOLE CARRANZA [facility]) [address] [place] [address] 94709-874 5 01/15/2025 16:45:29 01/21/2025 08:11:43 Dysuria 97389136 R30.0 69558 Acute urin krish tract infection 234364806 N39.0 532635 UA results reviewed and discussed with pt. We will start antibiotic s. Pt will increase oral fluids and can use cranberry. Return to office with no improvemen t or any problems. Go to ER with severe worsening or severe problems.W e will obtain urine culture [id number] NIKOLE CARRANZA [facility] [address] [place] [address] [id number] 5 05/05/2025 14:46:50 05/05/2025 15:13:09 [id number] Yanni Sanders MD [facility]) [address] [place] [address] 45456-644 5 06/19/2025 12:40:43 06/24/2025 14:41:14 Acute exacerbation of chronic obstructive pulmonary disease 458552288 J44.1 406966 Hypoxia 992572161 R09.02 16997 Health Concerns Section Related Observation LastModified by Organization Detai ls LastModified Time None Recorded Concern Status LastModified by Organization Details LastModified Time None Recorded Advance Directives Directive None Recorded Payers Insurance Date Sequence Insurance Name Policy Number Policy Siddiqi Covered Member ID Siddiqi Member ID Guarantor Name 06/19/2025 2 [place] Denia Gerardo [id number] Denia Gerardo 06/24/2025 1 [facility] [employer] (MEDICARE REPLACEMENT/A DVANTAGE - HMO) Denia Gerardo [id number] Denia Gerardo 06/19/2025 [place] [facility] Denia Gerardo [id number] Denia Gerardo Notes Date Note Type Note Provider Name and Address Organization Details Recorded Time 12/31/2024 text/html Weight LossRepor farzaneh by PatientHPIFor [...] f/u in march with renal u/s prior Yanni Sanders MD [address] [place], [address], [facility] 12/31/2024 12:38:19 01/15/2025 text/html Lower Urinary Tr act Symptoms (LUTS)Reported by PatientROS as noted in the HPI walk in patientpatient is here today for blood in her urine and right side lower back pain that started about 4 hours ago. No meds taken for this. Denies fever, weakness, vomiting. NIKOLE CARRANZA [address] [place], [address], [facility] 01/16/2025 12:14:13 05/05/2025 text/html walk in patientpatient [...] dizzy also that started today. Sudha dickerson, [facility] 05/05/2025 15:11:17 06/19/2025 text/html Emergency Depart ment Follow-Up RecordReported by PatientPt is here today for a hospital follow up due to shortness of breath. She was prescribed doxycycline and prednisone and is here today to follow up. Pt states she is currently out of her albuterol inhaler. She is still struggling with shortness of breath. Yanni Sanders MD [address] [place] [address], [address], [facility], Mohit 06/19/2025 13:14:12 OBGyn Episode No OBEpisode recorded.
[2025-08-21] MEDS: ondansetron 2 mg/ML SDV 2 mL 4 MG IVP (21:27)
--- NOTE | 2025-08-21 21:30 | ECG_ITS ---
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: : [id number] Requested By: Theresa George Order Number: [id number] Reading MD: MONIQUE ANGELES Measurements Intervals [place] Rate: 116 P: 56 ND: 144 QRS: 61 QRSD: 99 T: -66 QT: 328 QTc: 457 Interpretive Statements SINUS TACHYCARDIA LEFT VENTRICULAR HYPERTROPHY AND ST-T CHANGE [VOLTAGE CRITERIA PLUS ST/T ABNORMALITY] Compared to ECG 06/16/2025 19:57:10 Sinus rhythm no longer present ST (T wave) deviation still present Electronically Signed On 08-22-2025 18:30:24 ATHLETIC TEAM PHYSICIAN by MONIQUE ANGELES [email or web address] [id number]
--- NOTE | 2025-08-21 21:46 | XRR_ITS ---
PROCEDURE INFORMATION: Exam: XR Chest Exam date and time: 08/21/2025 9:58 PM Age: 79 years old Clinical indication: Other: Hypoxia TECHNIQUE: Imaging protocol: Radiologic exam of the chest. Views: 1 view. COMPARISON: CT angio chest PE protcl [id number] 06/16/2025 9:46 PM FINDINGS: Lungs: Hyperinflated lungs with diffuse interstitial markings which are no prominent than previous studies suggesting interstitial edema. Pleural spaces: No pleural effusion or pneumothorax noted. Heart/Mediastinum: There is no cardiomegaly. Bones/joints: No acute osseous abnormality. XR/XR chest 1V portable [id number] IMPRESSION: Interstitial edema.
--- NOTE | 2025-08-21 21:47 | W.ED.GENADLT ---
HPI - General Adult General: Chief complaint: Shortness of Breath/Dyspnea Stated complaint: Resp Dist Time Seen by Provider: 08/21/25 21:10 History of Present Illness: Patient is a 79-year-old female with a history of COPD on 2 L of supplemental O2 at home, current smoker, CHF with systolic dysfunction, CAD, PAD, hypertension, hyperlipidemia presents in acute respiratory distress per EMS. Per EMS, patient was smoking cigarettes and started to feel short of breath. Patient herself is unable to provide history at this time as she is able to speak full sentences and is in acute hypoxic respiratory failure. Per EMS, patient has not complained of chest pain but received DuoNeb, IV dexamethasone, 40 mg of Lasix, nitroglycerin and a dose of morphine prior to arrival. Related Data Home Medications ?Medication ?Instructions ?Recorded ?Confirmed fluticasone propionate 50 1 spray intranasal DAILY@07/26/22 07/29/25 mcg/actuation nasal spray,suspension (Flonase Allergy Relief) multivitamin 1 tab PO DAILY@01/23/23 07/29/25 potassium chloride 10 mEq 10 meq PO DAILY@02/03/23 07/29/25 tablet,extended release (Klor-Con) atorvastatin 40 mg tablet 40 mg PO BEDTIME@03/02/23 07/29/25 clopidogrel 75 mg tablet 75 mg PO QAM 03/02/23 07/29/25 pantoprazole 40 mg tablet,delayed 40 mg PO DAILY@03/02/23 07/29/25 release escitalopram oxalate 5 mg tablet 5 mg PO QAM 01/18/24 07/29/25 metoprolol tartrate 50 mg tablet 50 mg PO BID 01/18/24 07/29/25 acetaminophen 325 mg tablet 650 mg PO QID PRN Pain 09/10/24 07/29/25 ascorbic acid (vitamin C) 500 mg 250 mg PO QAM 09/10/24 07/29/25 tablet (Vitamin C) ferrous gluconate 324 mg (38 mg 324 mg PO DAILY 09/10/24 07/29/25 iron) tablet furosemide 20 mg tablet (Lasix) 20 mg PO QAM 09/10/24 07/29/25 nitrofurantoin PO 01/28/25 07/29/25 monohydrate/macrocrystals 100 mg capsule Previous Rx's ?Medication ?Instructions ?Recorded nitroglycerin 0.4 mg sublingual 0.4 mg sublingual Q5M PRN chest 10/20/22 tablet pain #25 tabs albuterol sulfate 90 mcg/actuation 2 inh inhalation Q4H PRN shortness 05/27/24 aerosol inhaler of breath or wheezing #6.7 grams sacubitril 49 mg-valsartan 51 mg 1 tab PO BID #90 tabs 11/05/24 tablet Allergies Allergy/AdvReac Type Severity Reaction Status Date / Time meperidine (From Demerol) Allergy Unknown Unknown Verified 08/21/25 21: morphine Allergy Unknown Unknown Verified 08/21/25 21:23 [facility] ED PFS: Medical History (Updated 08/22/25 @ 00:12 by Theresa George MD) Systolic CHF Acute CHF (congestive heart failure) GI bleed Upper gastrointestinal hemorrhage Acute anemia Elevated troponin Hip pain Heart failure Acute exacerbation of chronic obstructive pulmonary disease Dehydration Fall Respiratory failure with hypoxia and hypercapnia Lactic acidosis Cardiogenic shock UTI (urinary tract infection) Cystitis Heart failure, systolic, with acute decompensation CAD (coronary artery disease) COPD (chronic obstructive pulmonary disease) Tobacco abuse Peripheral arterial disease Dyslipidemia Essential hypertension Cardiomyopathy Hypoxia Acute systolic CHF (congestive heart failure) NSTEMI (non-ST elevated myocardial infarction) Elevated troponin Elevated troponin I level Emphysema lung Bacteriuria Pyuria Extrinsic ureteral obstruction Urinary incontinence Retained ureteral stent Surgical History H/O total hip arthroplasty right H/O shoulder surgery H/O arthroscopic knee surgery bilateral History of colon surgery H/O: H/O: hysterectomy H/O oral surgery Family History Mother , at age 79 Hypertension Peripheral artery disease Diabetes Father , at age 47 Cancer pancreatic and lung Social History Smoking and tobacco/nicotine status: current every day tobacco/nicotine user Physical Exam Narrative: EXAM NARRATIVE: Vitals were reviewed. Patient is awake but unable to speak or provide history due to acute respiratory distress. Patient has increased work of breathing, accessory muscle use, tachypnea and hypoxia. Patient is hypertensive and tachycardic. Patient has diffuse expiratory rhonchi/coarse wheezing. Abdomen is soft, nondistended nontender to palpation. No guarding. No lower extremity asymmetry. Mild lower extremity edema. Course Vital Signs: Vital signs: Vital Signs Temperature 97.5 F L 08/21/25 21:07 Pulse Rate 108 H 08/21/25 22:48 Respiratory Rate 24 H 08/21/25 21:50 Blood Pressure 187/112 08/21/25 21:07 Pulse Oximetry 96 08/21/25 22:48 Oxygen Delivery Me thod BiPAP 08/21/25 21:50 Fraction of Inspir ed Oxygen 30 08/21/25 22:48 MDM - General Adult Medical Decision Making 79-year-old female with a complex medical history including COPD and cardiomyopathy, heart failure presents in acute respiratory distress. Differential diagnosis includes but is limited to, COPD exacerbation, hypoxic and hypercapnic respiratory failure, viral upper respiratory infection, pneumonia, pneumothorax, pleural effusion, pulmonary edema/decompensated CHF, ACS, other. On exam, patient is in acute respiratory distress and was immediately placed on BiPAP with improvement of SpO2 saturations. She was treated with DuoNeb and budesonide, received dexamethasone prior to arrival. Patient was evaluated with CBC, CMP, lactic acid, procalcitonin, troponin, BNP, ABG, COVID and flu screen, UA, blood culture, EKG and chest x-ray. Patient has a normal white blood cell count and only mildly elevated lactic acid. Procalcitonin is within normal limits. I suspect lactic acid is elevated due to period of hypoxia prior to arrival. Patient has baseline kidney function. Troponin is elevated but delta [place] [address] with interstitial edema noted on CXR. Negative for COVID/flu. On reassessment, her BP is in 120s, tachycardia has improved, work of breathing has improved. Patient's presentation is most consistent with COPD exacerbation and concomitant decompensated congestive heart failure. Admitted. Lab Data 08/21/25 21:23 08/21/25 21:23 Radiology Impressions Chest X-Ray 08/21/25 21:46 IMPRESSION: Interstitial edema. Laboratory Results WBC 8.00 10^3/uL (3.29-11.43) 08/21/25 21:23 RBC 3.63 10^6/uL (3.85-5.65) L 08/21/25 21:23 Hgb 11.50 g/dL (11.27-16.99) 08/21/25 21: Hct 37.4 % (36-47) 08/21/25: MCV 103.0 fl (85-98) H 08/21/25 21: MCH 31.7 pg (27-33) 08/21/25 21: MCHC 30.7 g/dL (30-55) 08/21/25: RDW 13.4 % (12.1-15.1) 08/21/25 21: Plt Count 359 10^3/cmm (157-399) 08/21/25 21: MPV 9.4 fL (7.4-10.4) 08/21/25 21: Neut % (Auto) 50.6 % 08/21/25 21: Lymph % (Auto) 38.4 % 08/21/25: Morton % (Auto) 7.1 % 08/21/25: Eos % (Auto) 2.9 % 08/21/25 21: Baso % (Auto) 0.6 % 08/21/25: Neut # (Auto) 4.05 10^3/uL (1.8-7.7) 08/21/25 21: Lymph # (Auto) 3.1 10^3/uL (0.8-4.8) 08/21/25 21:23 Morton # (Auto) 0.6 10^3/uL (0.2-0.9) 08/21/25: Eos # (Auto) 0.2 10^3/uL (0.0-0.8) 08/21/25:23 Baso # (Auto) 0.1 10^3/uL (0.0-0.1) 08/21/25: Nucleated RBC % (auto) 0 % 08/21/25: Nucleated RBCs # 0.0 /100WBC 08/21/25: Specimen Type Arterial 08/21/25 22:05 Sample Site Brachial, right 08/21/25 22:05 ABG pH 7.28 (7.35-7.45) L 08/21/25 22:05 ABG pCO2 44.3 mmHg (35-45) 08/21/25 22:05 ABG pO2 97.7 mmHg (80.0-100.0) 08/21/25 22:05 ABG PO2/FiO2 Ratio 217 08/21/25 22:05 ABG HCO3 20.7 mmol/L (22-26) L 08/21/25 22:05 ABG O2 Saturation 97.1 08/21/25 22:05 ABG Base Excess -5.8 mmol/L (-2.0-2.0) L 08/21/25 22:05 Roby Test Pos 08/21/25 22:05 A-a O2 Gradient 21.5 mmHg (5-10) H 08/21/25 22:05 Hematocrit 31.8 % (37-47) L 08/21/25 22:05 Hgb O2 Saturation 94.7 % (95-100) L 08/21/25 22:05 Carboxyhemoglobin 1.4 %THgb (0.4-20.1) 08/21/25 22:05 Methemoglobin 1.1 % (0.4-1.5) 08/21/25 22:05 Total Hemoglobin 10.4 g/dL (12-16) L 08/21/25 22:05 Sodium 143.0 mmol/L (131-143) 08/21/25 22:05 Potassium 4.4 mmol/L (3.5-5.0) 08/21/25 22:05 Glucose 153.0 mg/dL (70-115) H 08/21/25 22:05 Ionized Calcium 1.2 mmol/L (1.1-1.4) 08/21/25 22:05 O2 Delivery Device Bipap 08/21/25 22:05 FiO2 45.0 % 08/21/25 22:05 Business Management Intern ID [email or web address] 08/21/25 22:05 Sodium 141 mmol/L (136-145) 08/21/25 21:23 Potassium 5.4 mmol/L (3.5-5.1) H 08/21/25 21:23 Chloride 107 mmol/L (98-107) 08/21/25 21:23 Carbon Dioxide 19 mmol/L (22-29) L 08/21/25 21:23 Anion Gap 20.4 (5-19) H 08/21/25 21:23 BUN 21 mg/dL (8-23) 08/21/25 21:23 Creatinine 1.3 mg/dL (0.5-0.9) H 08/21/25 21:23 GFR Calculation Not Reportable 08/21/25 21:23 Glucose 209 mg/dL (65-115) H 08/21/25 21:23 Calculated Osmolality 301 mOsm/kg (285-295) H 08/21/25 21:23 Lactic Acid 2.5 mmol/L (0.5-2.2) H 08/21/25 21:23 Calcium 9.2 mg/dL (8.5-10.5) 08/21/25 21:23 Total Bilirubin 0.3 mg/dL (0.15-1.2) 08/21/25 21:23 AST 35 U/L (0-32) H 08/21/25 21:23 ALT 18 U/L (0-33) 08/21/25 21:23 Alkaline Phosphatase 203 U/L (35-105) H 08/21/25 21:23 Troponin T Baseline 50 ng/L (0-10) H 08/21/25 21:23 Troponin T 60 Minute 52.56 ng/L (0-10) H 08/21/25 22:21 Delta Troponin T 2.56 ABS# (0-10) 08/21/25 22:21 NT-Pro-B Natriuret Pep 71553 pg/mL (0-450) H 08/21/25 21:23 Total Protein 6.7 g/dL (6.6-8.7) 08/21/25 21:23 Albumin 4.4 g/dL (3.5-5.2) 08/21/25 21:23 Globulin 2.3 g/dL (1.3-4.6) 08/21/25 21:23 Procalcitonin 0.19 ng/mL (0-0.5) 08/21/25 21:23 Influenza A (PCR) Negative (Negative) 08/21/25 22:01 Influenza Type B (PCR) Negative (Negative) 08/21/25 22:01 RSV (PCR) Negative (Negative) 08/21/25 22:01 SARS-CoV-2 (PCR) Negative (Negative) 08/21/25 22:01 All radiology interpretation(s) finalized by discharge Discharge Plan Discharge Patient Disposition: Admitted As Inpatient Clinical Impression: Asthma exacerbation in COPD, Acute hypoxemic respiratory failure, Elevated troponin Congestive heart failure (CHF) Qualifiers: Heart failure type: systolic Heart failure chronicity: acute on chronic Qualified Code(s): I50.23 - Acute on chronic systolic (congestive) heart failure Condition: Stable Coding Level of Care Code ED Drill Press Operator Helper for Isi Calhoun
[2025-08-21 22:01] LABS: Hematocrit 37.4 % (36-47); Hemoglobin 11.50 g/dL (11.27-16.99); Mean Corpuscular HGB Conc 30.7 g/dL (30-55); Mean Corpuscular Hemoglobin 31.7 pg (27-33); Mean Corpuscular Volume 103.0 fl (85-98); Nucleated Red Blood Cells % 0 %; Platelet Count 359 10^3/cmm (157-399); Red Blood Count 3.63 10^6/uL (3.85-5.65); White Blood Count 8.00 10^3/uL (3.29-11.43)
[2025-08-21 22:08] LABS: Lactic Sepsis W/Reflex 2.5 mmol/L (0.5-2.2)
[2025-08-21 22:13] LABS: Troponin(5th) Baseline 50 ng/L (0-10)
[2025-08-21 22:19] LABS: ABG PCO2 44.3 mmHg (35-45); ABG PH Result 7.28 (7.35-7.45); Alveolar-Arterial Oxygen Gradi 21.5 mmHg (5-10); Arterial Blood Gas Hematocrit 31.8 % (37-47); Blood Gas Allen Test Pos; Blood Gas Operator Identificat gerca; Blood Gas Sample Site Brachial, right; Blood Gas Sample Type Arterial; Carboxyhemoglobin 1.4 %THgb (0.4-20.1); Glucose Level-ABG 153.0 mg/dL (70-115); HCO3 ABG 20.7 mmol/L (22-26); Ionized Calcium Level - ABG 1.2 mmol/L (1.1-1.4); Methemoglobin 1.1 % (0.4-1.5); Oxygen Saturation ABG 97.1; PO2 ABG 97.7 mmHg (80.0-100.0); PO2 FiO2 Ratio Arterial Blood 217; Potassium Level - ABG 4.4 mmol/L (3.5-5.0); Sodium Level - ABG 143.0 mmol/L (131-143)
[2025-08-21 22:23] LABS: NT Pro B Type Natriuretic Pept 17355 pg/mL (0-450); Procalcitonin 0.19 ng/mL (0-0.5)
[2025-08-21 22:34] LABS: Alanine Aminotransferase 18 U/L (0-33); Albumin Level 4.4 g/dL (3.5-5.2); Alkaline Phosphatase 203 U/L (35-105); Aspartate Amino Transferase 35 U/L (0-32); Blood Urea Nitrogen 21 mg/dL (8-23); Calcium 9.2 mg/dL (8.5-10.5); Carbon Dioxide 19 mmol/L (22-29); Chloride 107 mmol/L (98-107); Globulin 2.3 g/dL (1.3-4.6); Glucose 209 mg/dL (65-115); Osmolality Calculated 301 mOsm/kg (285-295); Sodium 141 mmol/L (136-145); Total Protein 6.7 g/dL (6.6-8.7)
[2025-08-21 22:37] LABS: Anion Gap 20.4 (5-19); Potassium 5.4 mmol/L (3.5-5.1)
[2025-08-21 22:43] LABS: Respiratory Syncytial Virus Ce NEGATIVE (Negative); SARS-CoV-2 PCR NEGATIVE (Negative)
--- NOTE | 2025-08-21 22:46 | ECG_ITS ---
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
[2025-08-21 23:36] LABS: Reflex Lactate Order REFLEX LACTIC ORDERD
[2025-08-22] VITALS (21 sets, daily range): BP systolic 110–138; BP diastolic 54–66; PULSE 68–98; RESP 10–30; TEMP 36.4–36.9; O2SAT 92–98; BMI 13.4
[2025-08-22 00:15] LABS: Glucose Urine UA Negative (Normal); Nitrate Urine Positive (Negative); Specific Gravity, Urine 1.007 (1.005-1.030)
[2025-08-22 00:20] LABS: Add Urine Microscopic? YES
[2025-08-22 00:33] LABS: Lactic Acid level (Lactate) 0.9 mmol/L (0.5-2.2)
[2025-08-22 00:46] LABS: UA Slide Review UA Slide Review Perf
--- NOTE | 2025-08-22 01:32 | PM.HP ---
Providers/Chief Complaint Admitting Physician: Matthew Nye MD Primary Care Provider: Catalino Sanders MD Chief Complaint: Resp Dist History of Present Illness Denia Gerardo is a 79 year old female lives alone at home and chronically on 2 L/min O2 smokes 5 cigarettes a day called EMS because she was short of breath. Was treated with 40 mg of furosemide nebulizers and dexamethasone in the ambulance. Patient is on 20 mg furosemide orally daily along with potassium 10 mill colons at home her last echocardiogram 02/18/2024 showed LVEF 40% with global hypokinesis. Patient denies chest pain but admits to dyspnea on exertion and orthopnea. She reports weight loss from 130 pounds down to 90 pounds but per ER records and hospital records she has not been over 62 kg since 2020 and has not been over 59 kg since April 2022 Patient's chest x-ray shows interstitial edema. She has been started on BiPAP. I was able to take it off for little bit to speak with her and her sats were around 89 to 90% on room air for about 5 minutes . Review of Systems Narrative: General She states she has lost 17 pounds but her timeframe is unclear to me CV no chest pain or palpitation she does admit to some edema Respiratory positive for orthopnea dyspnea on exertion GI she reports he eats but cannot gain weight but later admits to gaining some pounds recently. It looks like weight was 40 now up to 45 kg from July. 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 Medications/Allergies Home Medications ?Medication ?Instructions ?Recorded ?Confirmed ?Last Taken ?Type fluticasone propionate 50 1 spray intranasal DAILY@07/26/22 07/29/25 09/09/24 History mcg/actuation nasal spray,suspension (Flonase Allergy Relief) nitroglycerin 0.4 mg sublingual 0.4 mg sublingual Q5M PRN chest 10/20/22 07/29/25 Unknown Rx tablet pain #25 tabs multivitamin 1 tab PO DAILY@01/23/23 07/29/25 09/09/24 History potassium chloride 10 mEq 10 meq PO DAILY@02/03/23 07/29/25 09/09/24 History tablet,extended release (Klor-Con) atorvastatin 40 mg tablet 40 mg PO BEDTIME@19 03/02/23 07/29/25 09/09/24 History clopidogrel 75 mg tablet 75 mg PO QAM 03/02/23 07/29/25 09/09/24 History pantoprazole 40 mg tablet,delayed 40 mg PO DAILY@07 03/02/23 07/29/25 09/09/24 History release escitalopram oxalate 5 mg tablet 5 mg PO QAM 01/18/24 07/29/25 09/09/24 History metoprolol tartrate 50 mg tablet 50 mg PO BID 01/18/24 07/29/25 09/09/24 History albuterol sulfate 90 mcg/actuation 2 inh inhalation Q4H PRN shortness 05/27/24 07/29/25 Unknown Rx aerosol inhaler of breath or wheezing #6.7 grams acetaminophen 325 mg tablet 650 mg PO QID PRN Pain 09/10/24 07/29/25 Unknown History ascorbic acid (vitamin C) 500 mg 250 mg PO QAM 09/10/24 07/29/25 09/09/24 History tablet (Vitamin C) ferrous gluconate 324 mg (38 mg 324 mg PO DAILY 09/10/24 07/29/25 09/09/24 History iron) tablet furosemide 20 mg tablet (Lasix) 20 mg PO QAM 09/10/24 07/29/25 09/09/24 History sacubitril 49 mg-valsartan 51 mg 1 tab PO BID #90 tabs 11/05/24 07/29/25 Unknown Rx tablet nitrofurantoin PO 01/28/25 07/29/25 Unknown History monohydrate/macrocrystals 100 mg capsule Allergies Allergy/AdvReac Type Severity Reaction Status Date / Time meperidine (From Demerol) Allergy Unknown Unknown Verified 08/21/25 21:23 morphine Allergy Unknown Unknown Verified 08/21/25 21:23 PFSH Acute PFSH: Medical History (Updated 08/22/25 @ 01:45 by Matthew Nye MD) Acute CHF (congestive heart failure) Systolic CHF GI bleed Upper gastrointestinal hemorrhage Acute anemia Elevated troponin Hip pain Heart failure Acute exacerbation of chronic obstructive pulmonary disease Dehydration Fall Respiratory failure with hypoxia and hypercapnia Lactic acidosis Cardiogenic shock UTI (urinary tract infection) Cystitis Heart failure, systolic, with acute decompensation CAD (coronary artery disease) COPD (chronic obstructive pulmonary disease) Tobacco abuse Peripheral arterial disease Dyslipidemia Essential hypertension Cardiomyopathy Hypoxia Acute systolic CHF (congestive heart failure) NSTEMI (non-ST elevated myocardial infarction) Elevated troponin Elevated troponin I level Emphysema lung Bacteriuria Pyuria Extrinsic ureteral obstruction Urinary incontinence Retained ureteral stent Surgical History H/O total hip arthroplasty right H/O shoulder surgery H/O arthroscopic knee surgery bilateral History of colon surgery H/O: H/O: hysterectomy H/O oral surgery Family History Mother , at age 79 Hypertension Peripheral artery disease Diabetes Father , at age 47 Cancer pancreatic and lung Social History (Updated 08/22/25 @ 01:38 by Matthew Nye MD) Smoking and tobacco/nicotine status: current every day tobacco/nicotine user cigarettes Number of cigarettes per day: 1-5 [ Other cigarette details: Smokes 5 cigarettes a day as of 08/22/2025] Alcohol intake: never Substance/Drug Use: never Additional social history: Patient wants DNR status as discussed 08/22/2025 with Matthew Nye MD Vitals/I&O/Wt Last Vital Signs Temp 97.5 F L 08/21/25 21:07 Pulse 93 08/22/25 01:08 Resp 24 H 08/21/25 21:50 BP 117/65 08/22/25 01:08 Pulse Ox 95 08/22/25 01:08 O2 Del Method BiPAP 08/22/25 00:00 FiO2 30 08/21/25 22:48 08/21/25 08/21/25 08/22/25 14:59 22:59 06:59 Intake Total 0 / 0 Balance 0 / 0 Weight last 48 hrs Weight 45.813 kg Physical Exam Narrative: General well-developed chronically ill-appearing thin female on BiPAP. There is some leak mask looks little big CV regular rate and rhythm no loud murmur heard above BiPAP Lungs poor air movement crackles heard in the bases there is scattered rhonchi Abdomen positive bowel tones soft nontender Calves 1+ to 2 bilateral pretibial edema no asymmetry tenderness cords Skin is warm and dry Data 08/21/25 21:23 08/21/25 21:23 Micro: Microbiology 08/21/25 22:21 Blood Culture - Preliminary Blood SPECIMEN COLLECTED 08/21/25 21:23 Blood Culture - Preliminary Blood SPECIMEN COLLECTED EKG sinus rhythm LVH and nonspecific ST-T wave abnormality: I personally reviewed and interpreted this EKG as follows: My Interpretation: Sinus rhythm LVH and nonspecific ST-T wave abnormality this is unchanged since 2023 A&P Assessment and plan 1. Acute hypoxemic respiratory failure: Appears to be volume overload exacerbating COPD and setting of hyperexpanded lungs and chronic smoker with COPD. Will treat with BiPAP diuresis and nebulizers. Patient states her sputum production has been frothy and not snotty 2. Acute CHF (congestive heart failure): Diurese and rate control. Will start beta-amado in addition to DuoNebs 3. Chronic lower urinary tract infection: Continue nitrofurantoin. Patient is largely asymptomatic she has had intermittent hematuria and I see that she has a right ureteral stent as of April CT scan. It is unclear if this has been removed. Patient currently on BiPAP and I did not elicit that history while I was interviewing her. This should be further discussed with her when more stable 4. Asthma exacerbation in COPD: Continue with BiPAP. Continue with DuoNebs. Consider adding steroids PDMP PDMP Reviewed: Not Reviewed Attestations Medical Necessity Statement*: Patient admitted with acute CHF exacerbation and COPD with volume overload and expected to require greater than 2 midnights Coding Level of Care Code 20353 Diagnoses Acute hypoxemic respiratory failure J96.01 Acute CHF (congestive heart failure) I50.9 Chronic lower urinary tract infection N39.0 Asthma exacerbation in COPD J44.1 Time Spent (min) 75
[2025-08-22] MEDS: FUROsemide 10 mg/mL SDV 4mL 40 MG IVP ×2 (02:13→14:51)
--- NOTE | 2025-08-22 04:09 | ECG_ITS ---
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1945 Requested By: Theresa George Order Number: [id number] Reading MD: MONIQUE ANGELES Measurements Intervals [place] Rate: 90 P: 36 [place]: 143 QRS: 66 QRSD: 98 T: 70 QT: 398 QTc: 489 Interpretive Statements SINUS RHYTHM WITH OCCASIONAL SUPRAVENTRICULAR PREMATURE COMPLEXES ST DEVIATION AND MODERATE T-WAVE ABNORMALITY, CONSIDER ANTERIOR ISCHEMIA [-0.1+ mV T-WAVE IN V3/V4] Compared to ECG 08/21/2025 22:51:11 T-wave abnormality now present Possible ischemia now present Left ventricular hypertrophy no longer present ST (T wave) deviation no longer present Electronically Signed On 08-22-2025 18:35:57 SHEET METAL ERECTOR by MONIQUE ANGELES [email or web address]
[2025-08-22 05:11] LABS: Troponin 5 6HR 62.24 ng/L (0-10)
[2025-08-22 05:18] LABS: Troponin 5 6HR Delta 12.24 ng/L (0-12)
--- NOTE | 2025-08-22 05:55 | PC.NURSE ---
pt has large amount of urine, absorbent pads unable to hold urine. pericare
[2025-08-22] MEDS: SACUBITRIL/VALSARTAN 49-51 TABLET 1 EACH PO ×2 (05:58→16:11)
[2025-08-22] MEDS: nitrofurantoin SR (BID) 100 mg Capsule PO (05:58)
[2025-08-22] MEDS: fluticasone nasal spray 16gm Btl 1 SPRAY INTRANASAL (06:00)
--- NOTE | 2025-08-22 08:38 | PC.PHAR ---
Pt is on bipap. Returned to room several times but was unable to wake the pt. Verified home meds with PIPPA Jiang with last fill date and day supply added in pharmacy notes.
[2025-08-22 11:57] LABS: Troponin T (5th) Once 61 ng/L (0-10)
[2025-08-22 12:25] LABS: Blood Urea Nitrogen 21 mg/dL (8-23); Calcium 9.3 mg/dL (8.5-10.5); Carbon Dioxide 20 mmol/L (22-29); Chloride 108 mmol/L (98-107); Glucose 84 mg/dL (65-115); Osmolality Calculated 298 mOsm/kg (285-295); Sodium 143 mmol/L (136-145)
[2025-08-22 12:26] LABS: Anion Gap 19.5 (5-19); Potassium 4.5 mmol/L (3.5-5.1)
--- NOTE | 2025-08-22 13:06 | PC.SOCIAL ---
IMM Updated Updated pt on IMM. No questions. Provided pt a copy. Initialed, dated, & timed a copy & placed in chart.
[2025-08-22] MEDS: cefTRIAXone 1,000 mg SDV 1000 MG IVP (14:51)
[2025-08-22 15:12] LABS: Base Excess VBG 0.2 mmol/L (-3.0-3.0); Blood Gas Operator Identificat CAK; Blood Gas Sample Type Venous; HCO3 VBG 23.0 mmol/L (24-28); PCO2 VBG 30.3 mmHg (41-51); PO2 VBG 176.0 mmHg (25-40); Venous Blood Gas Hematocrit 32.3 % (37-47); pH VBG 7.49 (7.32-7.42)
--- NOTE | 2025-08-22 16:23 | PC.OT ---
OT evaluation stated at 16:11; pt demonstrates SOB with bilateral UE raises. Pt requests OT evaluation be halted and continued tomorrow to allow pt to rest. Will attempt again at later time.
[2025-08-23] VITALS (12 sets, daily range): BP systolic 117–156; BP diastolic 45–61; PULSE 77–96; RESP 15–196; TEMP 36.4–36.8; O2SAT 94–98
[2025-08-23] MEDS: FUROsemide 10 mg/mL SDV 4mL 40 MG IVP (01:52)
[2025-08-23 03:57] LABS: Hematocrit 31.2 % (36-47); Hemoglobin 10.10 g/dL (11.27-16.99); Mean Corpuscular HGB Conc 32.4 g/dL (30-55); Mean Corpuscular Hemoglobin 31.6 pg (27-33); Mean Corpuscular Volume 97.5 fl (85-98); Nucleated Red Blood Cells % 0 %; Platelet Count 219 10^3/cmm (157-399); Red Blood Count 3.20 10^6/uL (3.85-5.65); White Blood Count 7.25 10^3/uL (3.29-11.43)
[2025-08-23 04:08] LABS: Anion Gap 21.5 (5-19); Blood Urea Nitrogen 25 mg/dL (8-23); Calcium 9.0 mg/dL (8.5-10.5); Carbon Dioxide 21 mmol/L (22-29); Chloride 107 mmol/L (98-107); Glucose 88 mg/dL (65-115); Magnesium 2.0 mg/dL (1.7-2.3); Osmolality Calculated 306 mOsm/kg (285-295); Potassium 3.5 mmol/L (3.5-5.1); Sodium 146 mmol/L (136-145)
[2025-08-23] MEDS: SACUBITRIL/VALSARTAN 49-51 TABLET 1 EACH PO ×2 (05:07→16:57)
--- NOTE | 2025-08-23 06:57 | PC.NURSE ---
08/23/2025 0500 was notified that pt was becoming intermittent more confused over night after arousal. No issues with arousal or drowsiness. Pt seemed to be in discomfort or pain, but pt denied patient/discomfort by stating I am ok, yes then fell a sleep. Vital signs obtained and recorded. No new order received. Will continue to monitor.
--- NOTE | 2025-08-23 07:45 | PM.PN ---
Subjective Subjective: Patient is a very pleasant 79-year-old female seen and examined at bedside on hospital rounds today. Patient sitting up in bed on nasal cannula, conversational dyspnea much improved. Patient continues to have weakness, denies any new or worsening symptoms today. Spoke with physical therapist who states that the patient will need SNF level of care at discharge, patient verbalized agreement and we will start authorization process through case management. Vital signs remained stable this morning, oxygen saturation 96% on 2 L/min via nasal cannula. Review of labs hemoglobin is 10.10, creatinine 1.6, BUN 25. Patient will continue current interventions inpatient, working towards discharge hopefully Monday or Monday to intermediate facility. Vitals/I&O/Wt Last Vital Signs Temp 98.1 F 08/23/25 06:00 Pulse 85 08/23/25 07:41 Resp 22 H 08/23/25 07:41 BP 138/48 08/23/25 06:00 Pulse Ox 95 08/23/25 07:41 O2 Del Method Nasal Cannula 08/23/25 07:41 O2 Flow Rate 2 08/23/25 07:41 FiO2 30 08/23/25 00:00 08/22/25 08/23/25 08/23/25 22:59 06:59 14:59 Intake Total 240 / 290 240 / 530 Balance 240 / 290 240 / 530 Weight last 48 hrs Weight 42.638 kg Weight 42.638 kg Weight 42.638 kg Weight 45.813 kg Physical Exam Narrative: General well-developed chronically ill-appearing thin female on oxygen via nasal cannula CV regular rate and rhythm no loud murmur auscultated Lungs coarse bilaterally to auscultation, diminished at the bases Abdomen positive bowel tones soft, nontender Extremities with no dependent edema noted, pulses equal bilaterally, generalized weakness Skin is warm and dry Data 08/23/25 03:00 08/23/25 03:00 Micro: Microbiology 08/21/25 22:21 Blood Culture - Preliminary Blood NEGATIVE TO DATE 08/21/25 21:23 Blood Culture - Preliminary Blood NEGATIVE TO DATE A&P Assessment and plan 1. Acute hypoxemic respiratory failure: Appears to be volume overload exacerbating COPD and setting of hyperexpanded lungs and chronic smoker with COPD. Will treat with BiPAP diuresis and nebulizers. Patient states her sputum production has been frothy and not snotty 2. Acute CHF (congestive heart failure): Diurese and rate control. Will start beta-amado in addition to DuoNebs 3. Chronic lower urinary tract infection: 4. Asthma exacerbation in COPD: Continue with BiPAP. Continue with DuoNebs. Consider adding steroids 5. Dyslipidemia: 6. Essential hypertension: 7. Generalized weakness: Plan: Acute hypoxemic respiratory failure - Has been on BiPAP - VBG: pH 7.52, pCO2 28, pO2 110, HCO3 23.0 - Continue supplemental oxygen to keep O2 sats greater than 88% - Pending home O2 eval prior to discharge Acute exacerbation diastolic heart failure - Diuresed well - Admitting BNP 63958 - Elevated troponins secondary to heart failure 50--<52.56--<62.24 - Continue cardioprotective medications including Plavix, metoprolol, Entresto, Lasix and monitor volume status UTI, POA, acute on chronic - was on oral nitrofurantoin for chronic UTI - Initiated on IV Rocephin - Pending urine culture, de-escalate as appropriate Asthma COPD - Continue DuoNeb every 6 hour - Adding Pulmicort twice daily - Continue Mucinex as needed Dyslipidemia - Continue Lipitor - Pending lipid panel Essential hypertension - Blood pressure 117/53 - Continue metoprolol, Entresto Generalized weakness - Fall precautions - Greatly appreciate physical therapy and Occupational Therapy evaluation and recommendations - Greatly appreciate case management and discharge planning, will need authorization for SNF VTE PPX: Contnue Plavix and lovenox GI PPX: Continue PPI Code Status: Allow natural PDMP PDMP Reviewed: Not Reviewed Attestations Medical Necessity Statement*: Continue inpatient admission for acute CHF exacerbation and COPD with volume overload, Weakness with PT/OT - plans for SNF discharge and expected interventions greater than 2 midnights. Coding Level of Care Code 28730 Diagnoses Acute hypoxemic respiratory failure J96.01 Acute CHF (congestive heart failure) I50.9 Chronic lower urinary tract infection N39.0 Asthma exacerbation in COPD J44.1 Dyslipidemia E78.5 Essential hypertension I10 Generalized weakness R53.1
[2025-08-23 08:42] LABS: Base Excess VBG 0.9 mmol/L (-3.0-3.0); Blood Gas Operator Identificat glc; Blood Gas Sample Site Not specified; Blood Gas Sample Type Not specified; HCO3 VBG 23.0 mmol/L (24-28); PCO2 VBG 28.0 mmHg (41-51); PO2 VBG 110.0 mmHg (25-40); Venous Blood Gas Hematocrit 33.5 % (37-47); pH VBG 7.52 (7.32-7.42)
--- NOTE | 2025-08-23 12:36 | PC.NURSE ---
pt was incont. of urine.
[2025-08-23] MEDS: cefTRIAXone 1,000 mg SDV 1000 MG IVP (15:13)
[2025-08-24] VITALS (12 sets, daily range): BP systolic 111–149; BP diastolic 57–71; PULSE 62–83; RESP 16–22; TEMP 36.6–36.9; O2SAT 94–98
[2025-08-24 05:07] LABS: Hematocrit 30.9 % (36-47); Hemoglobin 10.20 g/dL (11.27-16.99); Mean Corpuscular HGB Conc 33.0 g/dL (30-55); Mean Corpuscular Hemoglobin 32.0 pg (27-33); Mean Corpuscular Volume 96.9 fl (85-98); Nucleated Red Blood Cells % 0 %; Platelet Count 232 10^3/cmm (157-399); Red Blood Count 3.19 10^6/uL (3.85-5.65); White Blood Count 5.60 10^3/uL (3.29-11.43)
[2025-08-24] MEDS: SACUBITRIL/VALSARTAN 49-51 TABLET 1 EACH PO ×2 (05:14→16:01)
[2025-08-24 05:30] LABS: Anion Gap 17.2 (5-19); Blood Urea Nitrogen 27 mg/dL (8-23); Calcium 9.0 mg/dL (8.5-10.5); Carbon Dioxide 25 mmol/L (22-29); Chloride 106 mmol/L (98-107); Glucose 100 mg/dL (65-115); Osmolality Calculated 305 mOsm/kg (285-295); Potassium 3.2 mmol/L (3.5-5.1); Sodium 145 mmol/L (136-145)
[2025-08-24] MEDS: fluticasone nasal spray 16gm Btl 1 SPRAY INTRANASAL (06:45)
--- NOTE | 2025-08-24 07:55 | P.PN_ITS ---
Subjective 2 Subjective: Very pleasant 79-year-old female seen and examined at bedside on hospital rounds today. Patient sitting up in bed stating continued weakness, continued shortness of breath, and nose pain. Patient denies new or worsening symptoms. Potassium mildly low at 3.2. Awaiting SNF authorization, will continue PT/OT and inpatient interventions. All questions and concerns addressed to the patient at the bedside. Vitals/I&O/Wt Last Vital Signs Temp 97.9 F 08/24/25 05:00 Pulse 65 08/24/25 07:53 Resp 19 H 08/24/25 07:53 BP 149/68 08/24/25 07:53 Pulse Ox 96 08/24/25 07:53 O2 Del Method Nasal Cannula 08/24/25 04:25 O2 Flow Rate 2 08/24/25 04:25 FiO2 30 08/23/25 20:16 08/23/25 08/24/25 08/24/25 22:59 06:59 14:59 Intake Total 240 / 240 600 / 840 Output Total 150 / 150 Balance 240 / 240 450 / 690 Weight last 48 hrs Weight 42.638 kg Weight 42.638 kg Physical Exam 2 Narrative: General well-developed chronically ill-appearing thin female on oxygen via nasal cannula CV regular rate and rhythm no loud murmur auscultated Lungs coarse bilaterally to auscultation, diminished at the bases Abdomen positive bowel tones soft, nontender Extremities with no dependent edema noted, pulses equal bilaterally, generalized weakness Skin is warm and dry, laceration top of nose that is closed/scabbed Data 08/24/25 04:25 08/24/25 04:25 Micro: Microbiology 08/21/25 23:54 Urine Culture - Preliminary Urine,Clean Catch Gram Negative Rods A&P Assessment and plan 1. Acute hypoxemic respiratory failure: 2. Acute CHF (congestive heart failure): 3. Chronic lower urinary tract infection: 4. Asthma exacerbation in COPD: 5. Dyslipidemia: 6. Essential hypertension: 7. Generalized weakness: Plan: Acute hypoxemic respiratory failure - Has been on BiPAP - VBG: pH 7.52, pCO2 28, pO2 110, HCO3 23.0 - Continue supplemental oxygen to keep O2 sats greater than 88% - Pending home O2 eval prior to discharge Acute exacerbation diastolic heart failure - Diuresed well - Admitting BNP 23431 - Elevated troponins secondary to heart failure 50--<52.56--<62.24 - Continue cardioprotective medications including Plavix, metoprolol, Entresto, Lasix and monitor volume status UTI, POA, acute on chronic - was on oral nitrofurantoin for chronic UTI - Initiated on IV Rocephin and continues - Pending urine culture, de-escalate as appropriate Hypokalemia - Potassium 3.2 - Replenish as needed, monitor Asthma COPD - Continue DuoNeb every 6 hour - Adding Pulmicort twice daily - Continue Mucinex as needed Dyslipidemia - Continue Lipitor - Pending lipid panel Essential hypertension - Blood pressure 149/68 - Continue metoprolol, Entresto Generalized weakness - Fall precautions - Greatly appreciate physical therapy and Occupational Therapy evaluation and recommendations - Greatly appreciate case management and discharge planning, will need authorization for SNF VTE PPX: Contnue Plavix and lovenox GI PPX: Continue PPI Code Status: Allow natural PDMP PDMP Reviewed: Not Reviewed Attestations 2 Medical Necessity Statement*: Continue inpatient admission for acute CHF exacerbation and COPD with volume overload, Weakness with PT/OT - plans for SNF discharge and expected interventions greater than 2 midnights. Coding Level of Care Code 43783 Diagnoses Acute hypoxemic respiratory failure J96.01 Acute CHF (congestive heart failure) I50.9 Chronic lower urinary tract infection N39.0 Asthma exacerbation in COPD J44.1 Dyslipidemia E78.5 Essential hypertension I10 Generalized weakness R53.1
[2025-08-24] MEDS: cefTRIAXone 1,000 mg SDV 1000 MG IVP (16:00)
--- NOTE | 2025-08-24 16:16 | USCV_ITS ---
Denia Gerardo Age: 79 Gender: F : 1945 Exam Date: 08/24/2025 18:03 Ordering Phys: Karissa Beltran NP Technologist: GRAYSON Exam Location: [facility] – [place] Indication: chf BP: 126 / 63 HR: 70 Rhythm: Sinus Technical Quality: Adequate MEASUREMENTS (Male / Female) Normal Values 2D ECHO LV Diastolic Diameter PLAX 4.6 cm 4.2 - 5.9 / 3.9 - 5.3 cm IVS Diastolic Thickness 0.9 cm 0.6 - 1.0 / 0.6 - 0.9 cm IVS Systolic Thickness 1.3 cm LVPW Diastolic Thickness 0.8 cm 0.6 - 1.0 / 0.6 - 0.9 cm LVPW Systolic Thickness 1.0 cm LVOT Diameter 2.0 cm LV Ejection Fraction 2D Teich 41.9 % LV Ejection Fraction MOD 4C 30.1 % LV Ejection Fraction MOD 2C 33.5 % LV Ejection Fraction 2C AL 33.9 % LA Diameter 3.6 cm RA Systolic Volume 4C AL 32.1 ml RA Systolic Volume 4C MOD 31.7 ml LA Sys Volume AL 54.5 cm cubed LA Sys Volume Index AL 38.3 cm cubed/m squared IVC Diameter 1.6 cm M-MODE LA Ao Ratio MM 1.6 AV Cusp Separation MM 1.5 cm DOPPLER AV Peak Velocity 119.0 cm/s LVOT Peak Velocity 85.0 cm/s AV Area Cont Eq vti 2.3 cm squared AV Area Cont Eq pk 2.3 cm squared MV Peak Velocity 113.0 cm/s MV Area PHT 2.8 cm squared Mitral E to A Ratio 0.9 TV Peak Velocity 241.7 cm/s TR Peak Velocity 275.0 cm/s TR Peak Gradient 30.3 mmHg TR Mean Velocity 213.0 cm/s TR Mean Gradient 20.0 mmHg TR Velocity Time Integral 73.1 cm PV Peak Velocity 99.0 cm/s RV Ejection Time 0.2 s FINDINGS Left Ventricle Normal left ventricular cavity size. Moderate global hypokinesis with akinesis of the inferoseptal, inferior and inferolateral quinn. Ejection fraction 35 to 40%. Normal left ventricular diastolic function. Right Ventricle Normal right ventricular size and systolic function. Right Atrium Normal right atrial size. Left Atrium Mild left atrial enlargementNormal left atrial size. IA Septum Normal appearance of the interatrial septum. Mitral Valve Normal mitral valve leaflets. Moderate mitral annular calcification. Mild mitral valve regurgitation. No mitral valve stenosis Aortic Valve Normal aortic valve structure. No aortic valve stenosis or regurgitation. Tricuspid Valve Trace tricuspid valve regurgitation. Normal pulmonary artery systolic pressure. Pulmonic Valve Normal pulmonic valve structure. No pulmonic valve stenosis or regurgitation. Pericardium No pericardial effusion. Aorta Normal diameter of the aortic root and ascending thoracic aorta. IVC Normal IVC diameter. CONCLUSIONS Normal left ventricular cavity size. Moderate global hypokinesis with akinesis of the inferoseptal, inferior and inferolateral quinn. Ejection fraction 35 to 40%. Normal left ventricular diastolic function. Normal right ventricular size and systolic function. Mild mitral valve regurgitation. Beny Suarez MD, FACC (Electronically Signed) Final Date: 25 August 2025 08:13 S
[2025-08-25] VITALS (14 sets, daily range): BP systolic 102–128; BP diastolic 42–88; PULSE 57–82; RESP 14–20; TEMP 36.5–36.9; O2SAT 92–100
[2025-08-25] MEDS: SACUBITRIL/VALSARTAN 49-51 TABLET 1 EACH PO ×2 (05:42→17:16)
[2025-08-25 06:02] LABS: Hematocrit 33.6 % (36-47); Hemoglobin 10.80 g/dL (11.27-16.99); Mean Corpuscular HGB Conc 32.1 g/dL (30-55); Mean Corpuscular Hemoglobin 32.0 pg (27-33); Mean Corpuscular Volume 99.7 fl (85-98); Nucleated Red Blood Cells % 0 %; Platelet Count 236 10^3/cmm (157-399); Red Blood Count 3.37 10^6/uL (3.85-5.65); White Blood Count 4.91 10^3/uL (3.29-11.43)
[2025-08-25] MEDS: fluticasone nasal spray 16gm Btl 1 SPRAY INTRANASAL (06:07)
[2025-08-25 06:18] LABS: Anion Gap 14.9 (5-19); Blood Urea Nitrogen 33 mg/dL (8-23); Calcium 9.0 mg/dL (8.5-10.5); Carbon Dioxide 24 mmol/L (22-29); Chloride 107 mmol/L (98-107); Glucose 98 mg/dL (65-115); Osmolality Calculated 301 mOsm/kg (285-295); Potassium 3.9 mmol/L (3.5-5.1); Sodium 142 mmol/L (136-145)
--- NOTE | 2025-08-25 06:23 | PC.NURSE ---
BP 106/42, valsartan, metoprolol, lasix all scheduled. Dr. Nye notified and said to give meds. Physician notification put in.
--- NOTE | 2025-08-25 10:55 | P.PN_ITS ---
Subjective 2 Subjective: Patient is a very pleasant 79-year-old female seen and examined at bedside on hospital rounds today. Patient sitting up in bed with continued weakness, mild shortness of breath but denies new or worsening symptoms. Vital signs are stable this morning, and review of blood work hemoglobin stable 10.80, normal WBC 4.91, creatinine 1.3 and BUN 33. Currently awaiting authorization for SNF, will continue inpatient interventions with PT/OT in the meantime. All questions and concerns addressed with the patient at bedside today. Vitals/I&O/Wt Last Vital Signs Temp 97.7 F 08/25/25 07:27 Pulse 59 L 08/25/25 08:12 Resp 16 08/25/25 08:12 BP 102/47 08/25/25 07:27 Pulse Ox 97 08/25/25 08:12 O2 Del Method Nasal Cannula 08/25/25 08:12 O2 Flow Rate 2 08/25/25 08:12 FiO2 30 08/23/25 20:16 08/24/25 08/25/25 08/25/25 22:59 06:59 14:59 Intake Total 240 / 240 240 / 240 Output Total 100 / 100 Balance 140 / 140 240 / 240 Weight last 48 hrs Weight 44.452 kg Weight 42.638 kg Physical Exam 2 Narrative: General well-developed chronically ill-appearing thin female on oxygen via nasal cannula CV regular rate and rhythm no loud murmur auscultated Lungs coarse bilaterally to auscultation, diminished at the bases Abdomen positive bowel tones soft, nontender Extremities with no dependent edema noted, pulses equal bilaterally, generalized weakness Skin is warm and dry, laceration top of nose that is closed/scabbed Data 08/25/25 05:48 08/25/25 05:48 Micro: Microbiology 08/21/25 23:54 Urine Culture - Final Urine,Clean Catch Proteus mirabilis A&P Assessment and plan 1. Acute hypoxemic respiratory failure: 2. Acute CHF (congestive heart failure): 3. Chronic lower urinary tract infection: 4. Asthma exacerbation in COPD: 5. Dyslipidemia: 6. Essential hypertension: 7. Generalized weakness: Plan: Acute hypoxemic respiratory failure - Has been on BiPAP - VBG: pH 7.52, pCO2 28, pO2 110, HCO3 23.0 - Continue supplemental oxygen to keep O2 sats greater than 88% - Pending home O2 eval prior to discharge Acute exacerbation diastolic heart failure - Diuresed well - Admitting BNP 26764 - Elevated troponins secondary to heart failure 50--<52.56--<62.24 - Continue cardioprotective medications including Plavix, metoprolol, Entresto, Lasix and monitor volume status UTI, POA, acute on chronic - was on oral nitrofurantoin for chronic UTI - Initiated on IV Rocephin and continues - Pending urine culture, de-escalate as appropriate Hypokalemia, resolved - Potassium 3.2--<3.9 - Replenish as needed, monitor Asthma COPD - Continue DuoNeb every 6 hour - Adding Pulmicort twice daily - Continue Mucinex as needed Dyslipidemia - Continue Lipitor - Pending lipid panel Essential hypertension - Blood pressure 102/47 - Continue metoprolol, Entresto Malnutrition - BMI 14.1 - Ensure TID - Greatly appreciate Dietitian consultation and recommendations Generalized weakness - Fall precautions - Greatly appreciate physical therapy and Occupational Therapy evaluation and recommendations - Greatly appreciate case management and discharge planning, will need authorization for SNF VTE PPX: Contnue Plavix and lovenox GI PPX: Continue PPI Code Status: Allow natural PDMP PDMP Reviewed: Not Reviewed Attestations 2 Medical Necessity Statement*: Continue inpatient admission for acute CHF exacerbation and COPD with volume overload, Weakness with PT/OT - plans for SNF discharge and expected interventions greater than 2 midnights. Coding Level of Care Code 95436 Diagnoses Acute hypoxemic respiratory failure J96.01 Acute CHF (congestive heart failure) I50.9 Chronic lower urinary tract infection N39.0 Asthma exacerbation in COPD J44.1 Dyslipidemia E78.5 Essential hypertension I10 Generalized weakness R53.1
[2025-08-25 11:33] LABS: Cholesterol 157 mg/dL (0-200); HDL Cholesterol 76 mg/dL (60-100); Triglycerides 82 mg/dL (0-150)
--- NOTE | 2025-08-25 12:55 | PC.SOCIAL ---
IMM Update pg 2 of IMM updated and reviewed w/ patient. Copy provided and copy dated, initialed and placed in chart.
[2025-08-25] MEDS: cefTRIAXone 1,000 mg SDV 1000 MG IVP (17:15)
[2025-08-26] VITALS (9 sets, daily range): BP systolic 116–128; BP diastolic 46–68; PULSE 61–76; RESP 14–18; TEMP 36.3–36.7; O2SAT 94–99
[2025-08-26] MEDS: SACUBITRIL/VALSARTAN 49-51 TABLET 1 EACH PO (05:58)
[2025-08-26] MEDS: fluticasone nasal spray 16gm Btl 1 SPRAY INTRANASAL (06:00)
--- NOTE | 2025-08-26 09:50 | P.DS_ITS ---
Discharge Providers Date of Admission: 08/22/25 00:54 Date of Discharge: August 26, 2025 Attending Provider at Admission: Matthew Nye MD Attending Provider at Discharge: Karissa Beltran NP Primary Care Provider: Catalino Sanders MD Diagnoses at Discharge Discharge Diagnosis 1. Acute hypoxemic respiratory failure: 2. Acute CHF (congestive heart failure): 3. Chronic lower urinary tract infection: 4. Asthma exacerbation in COPD: 5. Dyslipidemia: 6. Essential hypertension: 7. Generalized weakness: Reason for Visit Reason for Visit: Resp Dist Brief History: Admission: Denia Gerardo is a 79 year old female lives alone at home and chronically on 2 L/min O2 smokes 5 cigarettes a day called EMS because she was short of breath. Was treated with 40 mg of furosemide nebulizers and dexamethasone in the ambulance. Patient is on 20 mg furosemide orally daily along with potassium 10 mill colons at home her last echocardiogram 02/18/2024 showed LVEF 40% with global hypokinesis. Patient denies chest pain but admits to dyspnea on exertion and orthopnea. She reports weight loss from 130 pounds down to 90 pounds but per ER records and hospital records she has not been over 62 kg since 2020 and has not been over 59 kg since April 2022 Patient's chest x-ray shows interstitial edema. She has been started on BiPAP. I was able to take it off for little bit to speak with her and her sats were around 89 to 90% on room air for about 5 minutes. Hospital Course Hospital Course Acute hypoxemic respiratory failure - Has been on BiPAP - VBG: pH 7.52, pCO2 28, pO2 110, HCO3 23.0 - Continue supplemental oxygen to keep O2 sats greater than 88% - Pending home O2 eval prior to discharge Acute exacerbation diastolic heart failure - Diuresed well - Admitting BNP 79131 - Elevated troponins secondary to heart failure 50--<52.56--<62.24 - Continue cardioprotective medications including Plavix, metoprolol, Entresto, Lasix and monitor volume status UTI, POA, acute on chronic - was on oral nitrofurantoin for chronic UTI - Initiated on IV Rocephin and continues - Pending urine culture, de-escalate as appropriate Hypokalemia, resolved - Potassium 3.2--<3.9 - Replenish as needed, monitor Asthma COPD - Continue DuoNeb every 6 hour - Adding Pulmicort twice daily - Continue Mucinex as needed Dyslipidemia - Continue Lipitor - Pending lipid panel Essential hypertension - Blood pressure 116/52 - Continue metoprolol, Entresto Malnutrition - BMI 14.1 - Ensure TID - Greatly appreciate Dietitian consultation and recommendations Generalized weakness - Fall precautions - Greatly appreciate physical therapy and Occupational Therapy evaluation and recommendations - Greatly appreciate case management and discharge planning, will need authorization for SNF Discharge: Discharged to senior living facility in stable condition. As needed oxygen. Advise continuing. Breathing treatments continue oral nitrofurantoin for pansensitive UTI. Patient will need continued PT/OT con tinued strengthening, increase caloric intake with supplemental Ensure 3 times daily with meals. Continue home medications as previously prescribed, advised to hold metoprolol if blood pressures are low. Advise follow-up with primary care provider this can be done in the long-term in 1 to 2 days or outpatient in 2 weeks. Physical Exam Narrative: General well-developed chronically ill-appearing thin female on oxygen via nasal cannula CV regular rate and rhythm no loud murmur auscultated Lungs coarse bilaterally to auscultation, diminished at the bases Abdomen positive bowel tones soft, nontender Extremities with no dependent edema noted, pulses equal bilaterally, generalized weakness Skin is warm and dry, laceration top of nose that is closed/scabbed Discharge Data Studies Completed and Pending Completed Studies During Hospitalization Category Date Time Status XR chest 1V portable [id number] Stat Exams 08/21/25 21:46 Completed CV. echo complete* [id number] Routine Ultrasound 08/24/25 16:16 Completed Pending at discharge Category Date Time Status Blood Culture Stat Lab 08/21/25 22:21 Results Radiology Impressions Chest X-Ray 08/21/25 21:46 IMPRESSION: Interstitial edema. Laboratory Results WBC 4.91 10^3/uL (3.29-11.43) 08/25/25 05:48 RBC 3.37 10^6/uL (3.85-5.65) L 08/25/25 05:48 Hgb 10.80 g/dL (11.27-16.99) L 08/25/25 05:48 Hct 33.6 % (36-47) L 08/25/25 05:48 MCV 99.7 fl (85-98) H 08/25/25 05:48 MCH 32.0 pg (27-33) 08/25/25 05:48 MCHC 32.1 g/dL (30-55) 08/25/25 05:48 RDW 13.2 % (12.1-15.1) 08/25/25 05:48 Plt Count 236 10^3/cmm (157-399) 08/25/25 05:48 MPV 9.4 fL (7.4-10.4) 08/25/25 05:48 Neut % (Auto) 60.1 % 08/25/25 05:48 Lymph % (Auto) 23.4 % 08/25/25 05:48 [place] % (Auto) 9.8 % 08/25/25 05:48 Eos % (Auto) 5.5 % 08/25/25 05:48 Baso % (Auto) 0.8 % 08/25/25 05:48 Neut # (Auto) 2.95 10^3/uL (1.8-7.7) 08/25/25 05:48 Lymph # (Auto) 1.2 10^3/uL (0.8-4.8) 08/25/25 05:48 [place] # (Auto) 0.5 10^3/uL (0.2-0.9) 08/25/25 05:48 Eos # (Auto) 0.3 10^3/uL (0.0-0.8) 08/25/25 05:48 Baso # (Auto) 0.0 10^3/uL (0.0-0.1) 08/25/25 05:48 Nucleated RBC % (auto) 0 % 08/25/25 05:48 Nucleated RBCs # 0.0 /100WBC 08/25/25 05:48 Specimen Type Not specified 08/23/25 08:00 Sample Site Not specified 08/23/25 08:00 ABG pH 7.28 (7.35-7.45) L 08/21/25 22:05 ABG pCO2 44.3 mmHg (35-45) 08/21/25 22:05 ABG pO2 97.7 mmHg (80.0-100.0) 08/21/25 22:05 ABG PO2/FiO2 Ratio 217 08/21/25 22:05 ABG HCO3 20.7 mmol/L (22-26) L 08/21/25 22:05 ABG O2 Saturation 97.1 08/21/25 22:05 ABG Base Excess -5.8 mmol/L (-2.0-2.0) L 08/21/25 22:05 Roby Test N/a 08/23/25 08:00 VBG pH 7.52 (7.32-7.42) H 08/23/25 08:00 VBG pCO2 28.0 mmHg (41-51) L 08/23/25 08:00 VBG pO2 110.0 mmHg (25-40) H 08/23/25 08:00 VBG HCO3 23.0 mmol/L (24-28) L 08/23/25 08:00 VBG Base Excess 0.9 mmol/L (-3.0-3.0) 08/23/25 08:00 VBG Hematocrit 33.5 % (37-47) L 08/23/25 08:00 A-a O2 Gradient 21.5 mmHg (5-10) H 08/21/25 22:05 Hematocrit 31.8 % (37-47) L 08/21/25 22:05 Hgb O2 Saturation 94.7 % (95-100) L 08/21/25 22:05 Carboxyhemoglobin 1.4 %THgb (0.4-20.1) 08/21/25 22:05 Methemoglobin 1.1 % (0.4-1.5) 08/21/25 22:05 Total Hemoglobin 10.4 g/dL (12-16) L 08/21/25 22:05 Sodium 143.0 mmol/L (131-143) 08/21/25 22:05 Potassium 4.4 mmol/L (3.5-5.0) 08/21/25 22:05 Glucose 153.0 mg/dL (70-115) H 08/21/25 22:05 Ionized Calcium 1.2 mmol/L (1.1-1.4) 08/21/25 22:05 O2 Delivery Device Not Reportable 08/23/25 08:00 FiO2 45.0 % 08/21/25 22:05 Business Continuity Manager ID [email or web address] 08/23/25 08:00 Blood Gas Notified Time [id number] 08/23/25 08:00 Sodium 142 mmol/L (136-145) 08/25/25 05:48 Potassium 3.9 mmol/L (3.5-5.1) 08/25/25 05:48 Chloride 107 mmol/L (98-107) 08/25/25 05:48 Carbon Dioxide 24 mmol/L (22-29) 08/25/25 05:48 Anion Gap 14.9 (5-19) 08/25/25 05:48 BUN 33 mg/dL (8-23) H 08/25/25 05:48 Creatinine 1.3 mg/dL (0.5-0.9) H 08/25/25 05:48 GFR Calculation Not Reportable 08/25/25 05:48 Glucose 98 mg/dL (65-115) 08/25/25 05:48 Calculated Osmolality 301 mOsm/kg (285-295) H 08/25/25 05:48 Lactic Acid 2.5 mmol/L (0.5-2.2) H 08/21/25 21:23 Lactic Acid (Sepsis) 0.9 mmol/L (0.5-2.2) 08/21/25 00:02 Calcium 9.0 mg/dL (8.5-10.5) 08/25/25 05:48 Phosphorus 2.6 mg/dL (2.5-4.5) 08/23/25 03:00 Magnesium 2.0 mg/dL (1.7-2.3) 08/23/25 03:00 Total Bilirubin 0.3 mg/dL (0.15-1.2) 08/21/25 21:23 AST 35 U/L (0-32) H 08/21/25 21:23 ALT 18 U/L (0-33) 08/21/25 21:23 Alkaline Phosphatase 203 U/L (35-105) H 08/21/25 21:23 Troponin T 5th Gen ng/L 61 ng/L (0-10) H 08/22/25 11:23 Troponin T Baseline 50 ng/L (0-10) H 08/21/25 21:23 Troponin T 60 Minute 52.56 ng/L (0-10) H 08/21/25 22:21 Delta Troponin T 2.56 ABS# (0-10) 08/21/25 22:21 Troponin T Hi Sens 6Hr 62.24 ng/L (0-10) H 08/22/25 03:43 Troponin T Hi Sens 6Hr Delta 12.24 ng/L (0-12) H* 08/22/25 03:43 NT-Pro-B Natriuret Pep 59596 pg/mL (0-450) H 08/21/25 21:23 Total Protein 6.7 g/dL (6.6-8.7) 08/21/25 21:23 Albumin 4.4 g/dL (3.5-5.2) 08/21/25 21:23 Globulin 2.3 g/dL (1.3-4.6) 08/21/25 21:23 Triglycerides 82 mg/dL (0-150) 08/25/25 05:48 Cholesterol 157 mg/dL (0-200) 08/25/25 05:48 LDL Cholesterol, Calc 65 mg/dL (50-129) 08/25/25 05:48 HDL Cholesterol 76 mg/dL (60-100) 08/25/25 05:48 LDL/HDL Ratio 0.86 RATIO (0.00-3.22) 08/25/25 05:48 Cholesterol/HDL Ratio 2.07 mg/dL (0.0-4.40) 08/25/25 05:48 Procalcitonin 0.19 ng/mL (0-0.5) 08/21/25 21:23 Urine Color Yellow (Yellow) 08/21/25 23:54 Urine Appearance Clear (CLEAR) 08/21/25 23:54 Urine pH 6.0 (5-7) 08/21/25 23:54 Ur Specific [place] 1.007 (1.005-1.030) 08/21/25 23:54 Urine Protein Negative (Negative) 08/21/25 23:54 Urine Glucose (UA) Negative (Normal) 08/21/25 23:54 Urine Ketones Negative (Negative) 08/21/25 23:54 Urine Blood Negative (Negative) 08/21/25 23:54 Urine Nitrate Positive (Negative) A 08/21/25 23:54 Urine Bilirubin Negative (Negative) 08/21/25 23:54 Urine Urobilinogen 0.2 mg/dL (Negative) 08/21/25 23:54 Ur Leukocyte Esterase 2+ (Negative) A 08/21/25 23:54 Urine RBC 0-2 /hpf (0-2) 08/21/25 23:54 Urine WBC 21-50 /hpf (0-5) H 08/21/25 23:54 Ur Squamous Epith Cells 0-5 /hpf (0-5) 08/21/25 23:54 Amorphous Sediment Not Reportable 08/21/25 23:54 Urine Bacteria 4+ /hpf (NONE) H 08/21/25 23:54 Hyaline Casts 1.21 /lpf 08/21/25 23:54 Influenza A (PCR) Negative (Negative) 08/21/25 22:01 Influenza Type B (PCR) Negative (Negative) 08/21/25 22:01 RSV (PCR) Negative (Negative) 08/21/25 22:01 SARS-CoV-2 (PCR) Negative (Negative) 08/21/25 22:01 Vitals Last Vital Signs Temp 97.4 F L 08/26/25 07:27 Pulse 76 08/26/25 09:10 Resp 18 08/26/25 09:10 BP 124/53 08/26/25 07:27 Pulse Ox 95 08/26/25 09:10 O2 Del Method Nasal Cannula 08/26/25 09:10 O2 Flow Rate 2 08/26/25 09:10 FiO2 30 08/23/25 20:16 Discharge Plan Discharge Patient Disposition: Xfer SNF Condition: Stable Prescriptions: New ipratropium-albuterol 0.5 mg-3 mg(2.5 mg base)/3 mL Solution For Nebulization 3 ml inhalation Q6H.RESP 30 Days Qty: 90 0RF nitrofurantoin monohyd/m-cryst [Macrobid] 100 mg capsule 100 mg PO Q12H 7 Days Qty: 14 0RF Rx Instructions: must administer with a meal/food Continued nitroglycerin 0.4 mg tablet, sublingual 0.4 mg sublingual Q5M PRN (Reason: chest pain) Qty: 25 3RF Rx Instructions: do not exceed 3 doses per episode fluticasone propionate [Flonase Allergy Relief] 50 mcg/actuation spray,suspension 1 spray intranasal DAILY@07 Rx Instructions: administer into each nostril sacubitril-valsartan 49-51 mg tablet 1 tab PO BID Qty: 90 3RF multivitamin Tablet 1 tab PO DAILY@07 potassium chloride [Klor-Con 10] 10 mEq Tablet Extended Release 10 meq PO DAILY@07 atorvastatin 40 mg tablet 40 mg PO BEDTIME@19 clopidogrel 75 mg tablet 75 mg PO QAM pantoprazole 40 mg tablet,delayed release (DR/EC) 40 mg PO DAILY@07 albuterol sulfate 90 mcg/actuation HFA aerosol inhaler 2 inh INHALATION Q4H PRN (Reason: shortness of breath or wheezing) Qty: 6.7 1RF metoprolol tartrate 50 mg tablet 50 mg PO BID escitalopram oxalate 5 mg tablet 5 mg PO QAM acetaminophen 325 mg Tablet 650 mg PO QID PRN (Reason: Pain) ascorbic acid (vitamin C) [Vitamin C] 500 mg Tablet 250 mg PO QAM ferrous gluconate 324 mg (38 mg iron) tablet 324 mg PO DAILY furosemide [Lasix] 20 mg tablet 20 mg PO QAM cyanocobalamin (vitamin B-12) [Vitamin B-12] 1,000 mcg tablet 1,000 mcg PO DAILY guaifenesin [Mucinex] 600 mg tablet extended release 12hr 600 mg PO Q12H Breztri Aerosphere 160-9-4.8 mcg/actuation HFA aerosol inhaler 2 inh INHALATION BID Discharge Order = DC NOW: Discharge Order (Routine); Ordered 08/26/25 Ordered By: Karissa Beltran Referrals: [facility] [Outside] Catalino Sanders MD [Primary Care Provider, Family Practice] - 2 weeks Discharge Diet: As Directed Discharge Activity: Resume usual activity Patient Instructions: Nitrofurantoin (By mouth), Ipratropium/Albuterol (By breathing), CHF Stoplight, Patient Portal & Shania Instructions Activity Restrictions/Additional Instructions: Increase caloric intake with boost or Ensure 3 times daily with meals Discharge Attestations Time Spent in Discharge Care*: greater than 30 min Status at Discharge: Cognitive status at discharge: cognitively intact , Behavioral status at discharge: cooperative , Quality Metrics Clinical Quality Measures [ No reported AMI, CVA or VTE this stay] Coding Level of Care Code Acute Code for Chg Fwd Diagnoses Acute hypoxemic respiratory failure J96.01 Acute CHF (congestive heart failure) I50.9 Chronic lower urinary tract infection N39.0 Asthma exacerbation in COPD J44.1 Dyslipidemia E78.5 Essential hypertension I10 Generalized weakness R53.1
--- NOTE | 2025-08-26 11:51 | PC.NURSE ---
This nurse called report to LAURA Polk at [facility] at [phone].
== END 2025-08-26 12:29 | disposition skilled nursing facility (03) | DRG 291 ==
LOC: ER 08-22 00:12 → MEDSURG 08-22 00:54
PROVIDERS: Admitting Provider Internal Medicine; Emergency Provider Emergency Medicine; PCP Family Medicine; Visit Provider Registered Nurse
DX: I11.0 Hypertensive heart disease with heart failure (principal); I50.23 Acute on chronic systolic (congestive) heart failure; J96.01 Acute respiratory failure with hypoxia; N39.0 Urinary tract infection, site not specified; J44.1 Chronic obstructive pulmonary disease with (acute) exacerbation; J45.901 Unspecified asthma with (acute) exacerbation; E46 Unspecified protein-calorie malnutrition; Z68.1 Body mass index [BMI] 19.9 or less, adult; E78.5 Hyperlipidemia, unspecified; F17.210 Nicotine dependence, cigarettes, uncomplicated; Z99.81 Dependence on supplemental oxygen; E87.6 Hypokalemia; Z82.49 Family history of ischemic heart disease and other diseases of the circulatory system; Z96.641 Presence of right artificial hip joint; Z79.51 Long term (current) use of inhaled steroids
CPT/HCPCS: 36415; 36600; 71045; 80048; 80051; 80053; 80061; 81001; 82330; 82803; 82805; 83605; 83735; 83880; 84100; 84145; 84484; 85025; 87040; 87077; 87086; 87186; 87637; 93005; 93306; 94640; 94660; 94664; 96372; 96374; 97116; 97162; 97167; 97530; 97535; 99285; 99291; J0696; J1650; J1938; J2405; J7626; J9999